=== PATIENT | male | born 1950 | race Caucasian/White ===

== ENCOUNTER 2017-06-10 13:02 | Emergency (ER) | payer OTHER ==
--- NOTE | 2017-06-10 13:51 | EKG ---
Test Date: 2017-06-10 Test Time: 13:03:58 Housing Liaison: RAJESH MEASUREMENT RESULTS: Intervals: Rate: 79 AL: 164 QRSD: 92 QT: 390 QTc: 447 [place]: P: 57 AL: 164 QRS: 82 T: 40 INTERPRETIVE STATEMENTS: Normal sinus rhythm Normal ECG Compared to ECG 05/07/2017 13:33:05 No significant changes Electronically Signed On 06-10-17 13:50:36 CDT by Jadon Chamorro
[2017-06-10 13:57] LABS: Absolute Lymphocytes (CBC) 2.9 K/uL (0.7-4.9); Absolute Monocytes 0.6 K/uL (0.1-1.3); Absolute Neutrophil 7.1 K/uL (1.8-8.0); Basophils % 1.4 % (0-1.3); Eosinophils % 1.5 % (0-4.4); Hematocrit 45.7 % (39.6-49.0); Lymphocytes % 26.4 % (15.3-44.8); MCH 33.6 pg (27.0-35.0); MCV 99.8 fL (80-100); Monocytes % 5.7 % (3.3-12.3); RBC Red Blood Cell Count 4.57 M/uL (4.33-5.43)
[2017-06-10 14:12] LABS: Potassium 3.7 mEq/L (3.6-5.0)
[2017-06-10] MEDS ORDERED: FENTANYL CITR 100 MCG/2 ML ONE (15:10)
[2017-06-10] MEDS ORDERED: NA CHLORIDE 0.9% 1,000 ML ONE (15:11)
--- NOTE | 2017-06-10 15:15 | RAD REPORT ---
EXAM DESCRIPTION: CT - Chest Abdomen W Con - 06/10/2017 2:55 pm CLINICAL HISTORY: Chest pain, abdominal pain, elevated D-dimer, history of hypertension and COPD, sm oking history COMPARISON: None. TECHNIQUE: During dynamic enhancement using 100 milliliters nonionic IV contrast, axial 5 millimeter thick images of the chest and abdomen were obtained. Biphasic technique was utilized through the abd omen. Oral contrast was administered. All CT scans are performed using dose optimization technique as appropriate and may include automated exposure control or mA/KV adjustment according to patient size. FINDINGS: The lungs are clear of mass and infiltrate. Mid and upper lung field calcified pleural mai quing similar to prior imaging. No new or enlarging soft tissue mass component. No pneumothorax or pl eural effusion. No chest wall mass or abnormal axillary lymphadenopathy seen. Mediastinal and hilar regions show no mass or lymphadenopathy. Aorta and pulmonary arterial tree enhance normally. No sign ificant cardiac finding. Liver shows a mild fatty infiltration pattern. No focal liver lesion identifiable. The gallbladder, b iliary tree, pancreas and spleen show no acute findings. Symmetric renal function is seen with no hydronephrosis, mass or other significant finding. No adren al abnormalities. Patient has nonspecific perinephric stranding similar to the prior study. No dilated bowel loops or focal ball bowel wall thickening. No free air, free fluid or inflammatory stranding. No mass or bulky lymphadenopathy. A small fat only umbilical hernia present and noted. No acute or destructive bone process seen. Prominent endplate degenerative changes are present. Heman gioma in the L3 body noted. IMPRESSION: CT chest imaging shows no pulmonary embolism, aortic acute finding or other worrisome me diastinal or hilar process. Calcified pleural plaquing stable from prior imaging. No acute pleural or lung parenchymal process. Mild fatty infiltration pattern to the liver with no acute liver finding. Overall no acute finding of the abdomen.
--- NOTE | 2017-06-10 15:20 | RAD REPORT ---
EXAM DESCRIPTION: RAD - Chest Single View - 06/10/2017 2:35 pm CLINICAL HISTORY: Chest pain COMPARISON: May [address] chest TECHNIQUE: AP portable chest image was obtained 1401 hours . FINDINGS: No focal consolidation, mass or failure finding. Lung markings are prominent but not signi ficantly different from comparison. Trachea is midline. Vague nodularity and calcifications in the ld ng griffith correspond to known calcified pleural plaques. Heart and vasculature are normal. No measura ble pleural effusion and no pneumothorax. No gross bony abnormality seen. No acute aortic findings kraft spected. IMPRESSION: No acute cardiopulmonary process. Chronic pleural and parenchymal findings are detailed above. These are similar to prior imaging.
--- NOTE | 2017-06-10 16:16 | ER ---
Nurse's Notes [facility] Name: Mega Farnsworth Age: 66 yrs Sex: Male : 1950 Arrival Date: 06/10/2017 Time: 13:04 Bed 8 Private MD: Diagnosis: Generalized abdominal pain;Chest pain, unspecified Presentation: 06/10 13:00 Presenting complaint: EMS states: pt from home, states he woke up about 1145 and was tw2 having chest pain, right in the middle, and abdominal pain, does not radiate, like 2 separate pains, vs stable, hx: htn, copd, acid reflus, nkda. Transition of care: patient was not received from another setting of care. Onset of symptoms was June 10, 2017. Initial Sepsis Screen: Does the patient meet any 2 criteria? Temp <36.0*C (96.8*F)) or > 38.3*C (100.4*F). No. Patient's initial sepsis screen is negative. Does the patient have a suspected source of infection? No. Patient's initial sepsis screen is negative. Care prior to arrival: IV initiated. 20 GA, in the left antecubital area. 13:00 Method Of Arrival: EMS: [facility] tw2 13:00 Acuity: DOMENICO 3 tw2 Historical: - Allergies: 13:12 NKDA; tw2 - Home Meds: 13:12 citalopram oral [Active]; Protonix 20 mg Oral TbEC 1 tab once daily [Active]; tw2 quetiapine Oral [Active]; tamsulosin Oral [Active]; lisinopril Oral [Active]; Zolpidem Tartrate Oral [Active]; - PMHx: 13:12 Anxiety; Hypertension; Ulcers; COPD; tw2 - Immunization history:: Adult Immunizations up to date. - Social history:: Smoking status: Patient uses tobacco products, smokes one-half pack cigarettes per day. Screenin:10 Abuse screen: Denies threats or abuse. Nutritional screening: No deficits noted. tw2 Tuberculosis screening: No symptoms or risk factors identified. Fall Risk None identified. Assessment: 13:08 General: Appears in no apparent distress. Behavior is calm, cooperative, appropriate tw2 for age. Pain: Complains of pain in chest and abdomen Pain does not radiate. Pain began 2 hours ago. Neuro: Level of Consciousness is awake, alert, obeys commands, Oriented to person, place, time, situation. Cardiovascular: Reports chest pain, Denies shortness of breath, hx of COPD Heart tones S1 S2 Capillary refill < 3 seconds Patient's skin is warm and dry. Respiratory: Airway is patent Respiratory effort is even, unlabored, Respiratory pattern is regular, symmetrical, Breath sounds are clear bilaterally. GI: Abdomen is round non-distended, Bowel sounds present X 4 quads. Reports lower abdominal pain, upper abdominal pain. : No signs and/or symptoms were reported regarding the genitourinary system. EENT: No signs and/or symptoms were reported regarding the EENT system. Derm: Skin is intact, is healthy with good turgor, Skin is dry, Skin temperature is warm. Musculoskeletal: Range of motion: intact in all extremities. 13:52 Reassessment: Patient appears in no apparent distress at this time. Patient and/or tw2 family updated on plan of care and expected duration. Pain level reassessed. Patient is alert, oriented x 3, equal unlabored respirations, skin warm/dry/pink. pt appears to be sleeping, easily arousable for blood draw at this time, pt states "can i get something for pain", provider notified. 15:00 Reassessment: Patient appears in no apparent distress at this time. Patient and/or tw2 family updated on plan of care and expected duration. Pain level reassessed. Patient is alert, oriented x 3, equal unlabored respirations, skin warm/dry/pink. 16:10 Reassessment: Patient appears in no apparent distress at this time. Patient and/or tw2 family updated on plan of care and expected duration. Pain level reassessed. Patient is alert, oriented x 3, equal unlabored respirations, skin warm/dry/pink. Vital Signs: 13:07 BP 120 / 85; Pulse 81; Resp 13; Temp 99.1(O); Pulse Ox 94% on R/A; Weight 81.65 kg (R); tw2 Height 5 ft. 8 in. (172.72 cm); Pain 10/10; 13:52 BP 114 / 78; Pulse 82; Resp 18; Pulse Ox 94% on R/A; tw2 14:00 BP 102 / 60; Pulse 79; Resp 16; Pulse Ox 94% ; jl7 14:45 BP 99 / 58; Pulse 77; Resp 16; Pulse Ox 94% ; jl7 15:15 BP 115 / 77; Pulse 77; Resp 16; Pulse Ox 96% on R/A; jl7 16:09 BP 107 / 79; Pulse 79; Resp 19; Pulse Ox 94% on R/A; tw2 13:07 Body Mass Index 27.37 (81.65 kg, 172.72 cm) tw2 13:07 pt has hx of COPD tw2 ED Course: 13:00 Bed in low position. Call light in reach. Side rails up X2. air sampling and monitoring on. Pulse tw2 ox on. NIBP on. 13:04 Patient arrived in ED. tw2 13:06 Triage completed. tw2 13:07 Arm band placed on. tw2 13:09 No provider procedures requiring assistance completed. Maintain EMS IV. Dressing tw2 intact. Good blood return noted. Site clean \\T\\ dry. Gauge \\T\\ site: 20g LEFT ac. Patient maintains SpO2 saturation greater than 95% on room air. 13:10 EKG done, by sleep lab technician. reviewed by Gustavo Marquez MD. at1 13:13 Svetlana Sierra, STEVO is Primary Nurse. tw2 13:15 Alex Lombardo MD is Attending Physician. gs 14:29 Notified ED physician of a critical lab result(s). D-dimer 1016. dm5 14:31 X-ray completed. Portable x-ray completed in exam room. Patient tolerated procedure kw1 well. 14:32 XRAY Chest (1 view) In Process Unspecified. EDMS 14:[address] via stretcher. vm2 14:55 CT Chest Abdomen W/ Contrast In Process Unspecified. EDMS 15:12 Troponin (emerg Dept Use Only) Sent. tw2 15:12 Lipase Sent. tw2 16:23 IV discontinued, intact, bleeding controlled, No redness/swelling at site. Pressure tw2 dressing applied. Administered Medications: 15:15 Drug: NS 0.9% 1000 ml Route: IV; Rate: 1 bolus; Site: left antecubital; jl7 16:22 Follow up: Response: No adverse reaction; IV Status: Order to discontinue infusion; IV tw2 Intake: 500ml 15:16 Drug: fentaNYL (PF) 50 mcg Route: IVP; Site: left antecubital; jl7 16:16 Follow up: Response: No adverse reaction; Pain is decreased tw2 Intake: 16:22 IV: 500ml; Total: 500ml. tw2 Outcome: 16:15 Discharge ordered by . josep 16:23 Discharged to home ambulatory. tw2 16:23 Condition: stable 16:23 Discharge instructions given to patient, Instructed on discharge instructions, follow up and referral plans. Demonstrated understanding of instructions, follow-up care. 16:27 Patient left the ED. tw2 Signatures: Dispatcher [employer] EDMS Dasha Mayen, RN RN dm5 Suzie neville, home health occupational therapist EKG Tat1 Svetlana Sierra RN RN tw2 Junior Becker RN RN jl7 Meredith Lee 2 Alex Lombardo MD MD gs Wilhelm, Kimberly kw1 Corrections: (The following items were deleted from the chart) 13:53 13:07 BP 120 / 85; Pulse 81bpm; Resp 13bpm; Pulse Ox 94% RA; Temp 99.1F Oral; 81.65 kg tw2 Reported; Height 5 ft. 8 in.; BMI: 27.3; Pain 10/10; tw2
--- NOTE | 2017-06-10 16:16 | EDPHYS ---
Physician Documentation [facility] Name: Mega Farnsworth Age: 66 yrs Sex: Male : 1950 Arrival Date: 06/10/2017 Time: 13:04 Bed 8 Private MD: ED Physician Alex Lombardo HPI: 06/10 16:35 This 66 yrs old Male presents to ER via EMS with complaints of Chest Pain > gs 30 y/o, Abdominal Pain. 16:35 The patient or guardian reports chest pain that is located primarily in the epigastric gs area. Onset: acutely. The pain radiates to abdomen. Associated signs and symptoms: Pertinent negatives: diaphoresis, shortness of breath. The chest pain is described as sharp. Duration: The patient or guardian reports a single episode. Modifying factors: The symptoms are alleviated by nothing. the symptoms are aggravated by nothing. Severity of pain: At its worst the pain was moderate in the emergency department the pain is unchanged. The patient has experienced similar episodes in the past, a few times. Historical: - Allergies: 13:12 NKDA; tw2 - Home Meds: 13:12 citalopram oral [Active]; Protonix 20 mg Oral TbEC 1 tab once daily [Active]; tw2 quetiapine Oral [Active]; tamsulosin Oral [Active]; lisinopril Oral [Active]; Zolpidem Tartrate Oral [Active]; - PMHx: 13:12 Anxiety; Hypertension; Ulcers; COPD; tw2 - Immunization history:: Adult Immunizations up to date. - Social history:: Smoking status: Patient uses tobacco products, smokes one-half pack cigarettes per day. ROS: 16:35 All other systems are negative. gs Exam: 16:15 ECG was reviewed by the Attending Physician. gs 16:35 Head/Face: Normocephalic, atraumatic. Eyes: Pupils equal round and reactive to light, gs extra-ocular motions intact. Lids and lashes normal. Conjunctiva and sclera are non-icteric and not injected. Cornea within normal limits. Periorbital areas with no swelling, redness, or edema. ENT: Nares patent. No nasal discharge, no septal abnormalities noted. Tympanic membranes are normal and external auditory canals are clear. Oropharynx with no redness, swelling, or masses, exudates, or evidence of obstruction, uvula midline. Mucous membranes moist. Neck: Trachea midline, no thyromegaly or masses palpated, and no cervical lymphadenopathy. Supple, full range of motion without nuchal rigidity, or vertebral point tenderness. No Meningismus. Chest/axilla: Normal chest wall appearance and motion. Nontender with no deformity. No lesions are appreciated. Cardiovascular: Regular rate and rhythm with a normal S1 and S2. No gallops, murmurs, or rubs. Normal PMI, no JVD. No pulse deficits. Respiratory: Lungs have equal breath sounds bilaterally, clear to auscultation and percussion. No rales, rhonchi or wheezes noted. No increased work of breathing, no retractions or nasal flaring. 16:35 Back: No spinal tenderness. No costovertebral tenderness. Full range of motion. Skin: Warm, dry with normal turgor. Normal color with no rashes, no lesions, and no evidence of cellulitis. MS/ Extremity: Pulses equal, no cyanosis. Neurovascular intact. Full, normal range of motion. Neuro: Awake and alert, GCS 15, oriented to person, place, time, and situation. Cranial nerves II-XII grossly intact. Motor strength 5/5 in all extremities. Sensory grossly intact. Cerebellar exam normal. Normal gait. 16:35 Constitutional: The patient appears alert, awake, uncomfortable. 16:35 Abdomen/GI: Palpation: mild abdominal tenderness, in all quadrants, rebound tenderness, is not appreciated. Vital Signs: 13:07 BP 120 / 85; Pulse 81; Resp 13; Temp 99.1(O); Pulse Ox 94% on R/A; Weight 81.65 kg (R); tw2 Height 5 ft. 8 in. (172.72 cm); Pain 10/10; 13:52 BP 114 / 78; Pulse 82; Resp 18; Pulse Ox 94% on R/A; tw2 14:00 BP 102 / 60; Pulse 79; Resp 16; Pulse Ox 94% ; jl7 14:45 BP 99 / 58; Pulse 77; Resp 16; Pulse Ox 94% ; jl7 15:15 BP 115 / 77; Pulse 77; Resp 16; Pulse Ox 96% on R/A; jl7 16:09 BP 107 / 79; Pulse 79; Resp 19; Pulse Ox 94% on R/A; tw2 13:07 Body Mass Index 27.37 (81.65 kg, 172.72 cm) tw2 13:07 pt has hx of COPD tw2 MDM: 13:27 Patient medically screened. 16:35 Differential diagnosis: coronary artery disease chest wall pain, thoracic aortic gs disection. Data reviewed: vital signs, nurses notes. Response to treatment: the patient's symptoms have resolved after treatment, and as a result, I will discharge patient. 06/10 13:35 Order name: Basic Metabolic Panel; Complete Time: 14:31 06/10 13:35 Order name: CBC with Diff; Complete Time: 14:31 06/10 13:35 Order name: Troponin (emerg Dept Use Only); Complete Time: 14:31 06/10 13:35 Order name: D-Dimer; Complete Time: 14:31 06/10 15:01 Order name: Lipase; Complete Time: 16:13 06/10 15:01 Order name: Troponin (emerg Dept Use Only); Complete Time: 16:13 06/10 13:35 Order name: XRAY Chest (1 view); Complete Time: 15:38 06/10 13:35 Order name: EKG; Complete Time: 13:36 06/10 13:35 Order name: Cardiac monitoring; Complete Time: 13:51 06/10 13:35 Order name: EKG - Nurse/Tech; Complete Time: 13:51 06/10 13:35 Order name: IV Saline Lock; Complete Time: 13:51 06/10 14:24 Order name: CT Chest Abdomen W/ Contrast; Complete Time: 15:38 06/10 13:35 Order name: Labs collected and sent; Complete Time: 13:51 06/10 13:35 Order name: O2 Per Protocol; Complete Time: 13:51 06/10 13:35 Order name: O2 Sat Monitoring; Complete Time: 13:51 gs EC:15 Rate is 79 beats/min. Rhythm is regular. WI interval is normal. QRS interval is normal. gs QT interval is normal. T waves are Normal. No ST changes noted. Clinical impression: Normal ECG. Interpreted by me. Administered Medications: 15:15 Drug: NS 0.9% 1000 ml Route: IV; Rate: 1 bolus; Site: left antecubital; jl7 16:22 Follow up: Response: No adverse reaction; IV Status: Order to discontinue infusion; IV tw2 Intake: 500ml 15:16 Drug: fentaNYL (PF) 50 mcg Route: IVP; Site: left antecubital; jl7 16:16 Follow up: Response: No adverse reaction; Pain is decreased tw2 Disposition: 06/10/17 16:15 Discharged to Home. Impression: Generalized abdominal pain, Chest pain, unspecified. - Condition is Stable. - Discharge Instructions: Nonspecific Chest Pain. - Medication Reconciliation Form, Thank You Letter, Antibiotic Education, Prescription Opioid Use form. - Follow up: Private Physician; When: 2 - 3 days; Reason: Re-evaluation by your physician. Signatures: Dispatcher [employer] EDSvetlana Kelley RN RN tw2 Junior Becker RN RN jl7 Alex Lombardo MD MD
[2017-06-10 16:32] VITALS: TEMP 99.1
[2017-06-10 16:38] VITALS: BP 107/79; O2SAT 94
== END 2017-06-10 16:27 | disposition home or self-care (01) ==
LOC: ER 13:02
DX: R10.84 Generalized abdominal pain (principal); I10 Essential (primary) hypertension; F41.9 Anxiety disorder, unspecified; J44.9 Chronic obstructive pulmonary disease, unspecified; F17.210 Nicotine dependence, cigarettes, uncomplicated
CPT/HCPCS: 36415; 71045; 71260; 74160; 80048; 83690; 84484 ×2; 85025; 85379; 93005; 96361; 96374; 99285; J3010; J7030; Q9967

== ENCOUNTER 2017-08-02 07:19 | Emergency (ER) | payer OTHER ==
[2017-08-02] MEDS ORDERED: FAMOTIDINE 20 MG/2 ML VIAL IV ONE (07:38)
[2017-08-02] MEDS ORDERED: ONDANSETRON 4 MG/2 ML VIAL ONE ×2 (07:38→08:22)
[2017-08-02] MEDS ORDERED: MORPHINE 4 MG/ML SYR ONE ×2 (07:38→09:44)
[2017-08-02] MEDS ORDERED: NA CHLORIDE 0.9% 500 ML ONE (07:38)
[2017-08-02 07:52] LABS: Absolute Lymphocytes (CBC) 1.6 K/uL (0.7-4.9); Absolute Monocytes 2.1 K/uL (0.1-1.3); Absolute Neutrophil 15.3 K/uL (1.8-8.0); Basophils % 0.4 % (0-1.3); Eosinophils % 0.1 % (0-4.4); Hematocrit 50.4 % (39.6-49.0); Lymphocytes % 8.4 % (15.3-44.8); MCH 33.1 pg (27.0-35.0); MCV 96.9 fL (80-100); MPV 8.2 fL (7.6-11.3); Monocytes % 10.8 % (3.3-12.3)
[2017-08-02 08:06] LABS: Potassium 3.8 mEq/L (3.6-5.0)
[2017-08-02 08:12] LABS: Albumin 4.3 g/dL (3.2-5.5); Bilirubin Direct 0.2 mg/dL (0-0.2); Bilirubin Total 1.2 mg/dL (0.3-1.2); Protein, Total 6.9 g/dL (6.0-8.3)
[2017-08-02] MEDS ORDERED: METRONIDAZOLE 500mg IVPB 500 MG/100 ML BAG IV ONE (08:16)
[2017-08-02] MEDS ORDERED: Levofloxacin500mg IV 500 MG/100 ML BAG IV ONE (08:16)
--- NOTE | 2017-08-02 08:42 | RAD REPORT ---
EXAM DESCRIPTION: CT - Abdomen Pelvis W Contrast - 08/02/2017 8:29 am CLINICAL HISTORY: Abdominal pain/left upper quadrant pain COMPARISON: 2015 TECHNIQUE: Computed axial tomography of the abdomen pelvis was obtained. 100 cc Isovue-300 was admin istered intravenously. Oral contrast was not requested which limits evaluation of bowel. All CT scans are performed using dose optimization technique as appropriate and may include automated exposure control or mA/KV adjustment according to patient size. FINDINGS: Mild fatty infiltration of liver is present. Spleen, pancreas, adrenal and kidneys appear unremarkable. There is no evidence of diverticulitis. The appendix is normal. The wall of the rectum is moderately thickened. Bilateral inguinal hernias contain fat. IMPRESSION: Moderate thickening of the wall of the rectum may indicate proctitis
--- NOTE | 2017-08-02 09:02 | EDPHYS ---
Physician Documentation [facility] Name: Mega Farnsworth Age: 66 yrs Sex: Male : 1950 Arrival Date: 08/02/2017 Time: 07:20 Bed 8 Private MD: ED Physician Sarthak Villanueva HPI: 08/02 07:35 This 66 yrs old Male presents to ER via EMS with complaints of Abdominal Pain.kdr 07:35 The patient presents with abdominal pain in the left lower quadrant. Onset: The kdr symptoms/episode began/occurred suddenly, at 06:00. The symptoms do not radiate. Associated signs and symptoms: Pertinent positives: nausea. The symptoms are described as achy, constant, crampy, vague. Modifying factors: The symptoms are alleviated by nothing, the symptoms are aggravated by nothing. Severity of pain: At its worst the pain was mild moderate just prior to arrival, in the emergency department the pain is unchanged. The patient has experienced similar episodes in the past, a few times. The patient has not recently seen a physician. Historical: - Allergies: 07:24 NKDA; sg - Home Meds: 07:24 citalopram oral [Active]; lisinopril Oral [Active]; Protonix 20 mg Oral TbEC 1 tab once sg daily [Active]; quetiapine Oral [Active]; tamsulosin Oral [Active]; Zolpidem Tartrate Oral [Active]; 07:29 Protonix Oral [Active]; sg - PMHx: 07:24 Anxiety; COPD; Hypertension; Ulcers; sg - Immunization history:: Adult Immunizations up to date. - Social history:: Smoking status: Patient/guardian denies using tobacco. - Ebola Screening: : Patient negative for fever greater than or equal to 101.5 degrees Fahrenheit, and additional compatible Ebola Virus Disease symptoms Patient denies exposure to infectious person Patient denies travel to an Ebola-affected area in the 21 days before illness onset No symptoms or risks identified at this time. ROS: 07:35 Constitutional: Negative for fever, chills, and weight loss, Eyes: Negative for injury, kdr pain, redness, and discharge, Neck: Negative for injury, pain, and swelling, Cardiovascular: Negative for chest pain, palpitations, and edema, Respiratory: Negative for shortness of breath, cough, wheezing, and pleuritic chest pain, Back: Negative for injury and pain, : Negative for injury, bleeding, discharge, and swelling, MS/Extremity: Negative for injury and deformity, Skin: Negative for injury, rash, and discoloration, Neuro: Negative for headache, weakness, numbness, tingling, and seizure activity. Psych: Negative for depression, anxiety, suicide ideation, homicidal ideation, and hallucinations, Allergy/Immunology: Negative for hives, rash, and allergies, Endocrine: Negative for neck swelling, polydipsia, polyuria, polyphagia, and marked weight changes, Hematologic/Lymphatic: Negative for swollen nodes, abnormal bleeding, and unusual bruising. 07:35 Abdomen/GI: Positive for abdominal pain, nausea, of the left lower quadrant. Exam: 07:35 Constitutional: This is a well developed, well nourished patient who is awake, alert, kdr and in no acute distress. Head/Face: Normocephalic, atraumatic. Eyes: Pupils equal round and reactive to light, extra-ocular motions intact. Lids and lashes normal. Conjunctiva and sclera are non-icteric and not injected. Cornea within normal limits. Periorbital areas with no swelling, redness, or edema. Neck: Trachea midline, no thyromegaly or masses palpated, and no cervical lymphadenopathy. Supple, full range of motion without nuchal rigidity, or vertebral point tenderness. No Meningismus. Chest/axilla: Normal chest wall appearance and motion. Nontender with no deformity. No lesions are appreciated. Cardiovascular: Regular rate and rhythm with a normal S1 and S2. No gallops, murmurs, or rubs. Normal PMI, no JVD. No pulse deficits. Respiratory: Lungs have equal breath sounds bilaterally, clear to auscultation and percussion. No rales, rhonchi or wheezes noted. No increased work of breathing, no retractions or nasal flaring. Back: No spinal tenderness. No costovertebral tenderness. Full range of motion. Skin: Warm, dry with normal turgor. Normal color with no rashes, no lesions, and no evidence of cellulitis. MS/ Extremity: Pulses equal, no cyanosis. Neurovascular intact. Full, normal range of motion. Neuro: Awake and alert, GCS 15, oriented to person, place, time, and situation. Cranial nerves II-XII grossly intact. Motor strength 5/5 in all extremities. Sensory grossly intact. Cerebellar exam normal. Normal gait. Psych: Awake, alert, with orientation to person, place and time. Behavior, mood, and affect are within normal limits. 07:35 Abdomen/GI: Inspection: abdomen appears normal, obese Bowel sounds: active, all quadrants, Palpation: soft, mild abdominal tenderness, in the left upper quadrant and left lower quadrant. Vital Signs: 07:25 BP 140 / 83; Pulse 89; Resp 17 S; Temp 98.3(TE); Pulse Ox 99% on R/A; Pain 10/10; sg 08:27 BP 142 / 88; Pulse 85; Resp 18; Pulse Ox 99% ; sv MDM: 07:35 Data reviewed: vital signs, nurses notes, lab test result(s), radiologic studies. kdr Counseling: I had a detailed discussion with the patient and/or guardian regarding: the historical points, exam findings, and any diagnostic results supporting the discharge/admit diagnosis, the presence of at least one elevated blood pressure reading (>120/80) during this emergency department visit, lab results. 09:01 Patient medically screened. kdr 08/02 07:34 Order name: Basic Metabolic Panel; Complete Time: 08:50 kdr 08/02 07:34 Order name: CBC with Diff; Complete Time: 08:08 kdr 08/02 07:34 Order name: Hepatic Function; Complete Time: 08:50 kdr 08/02 07:34 Order name: Lipase; Complete Time: 08:50 kdr 08/02 07:34 Order name: Urine Microscopic Only kdr 08/02 07:34 Order name: CT Abd/Pelvis - W/Contrast; Complete Time: 08:50 kdr 08/02 07:35 Order name: UDS kdr 08/02 07:35 Order name: ETOH Level; Complete Time: 08:09 kdr 08/02 08:50 Order name: Urine Dipstick--Ancillary (enter results) bd 08/02 08:50 Order name: Urine Dipstick-Ancillary EDPR 08/02 07:34 Order name: IV Saline Lock; Complete Time: 07:34 kdr 08/02 07:34 Order name: Labs collected and sent; Complete Time: 07:34 kdr 08/02 07:34 Order name: Urine Dipstick-Ancillary (obtain specimen); Complete Time: 09:04 kdr 08/02 09:24 Order name: EKG Electrocardiogram EDMS Administered Medications: 07:40 Drug: NS 0.9% 500 ml Route: IV; Rate: 125 ml/hr; Site: right antecubital; sg 07:40 Drug: morphine 4 mg Route: IVP; Site: right antecubital; sg 08:16 Follow up: Response: No adverse reaction; Pain is decreased; 10/28 sg 07:40 Drug: Zofran 4 mg Route: IVP; Site: right antecubital; sg 08:15 Follow up: Response: No adverse reaction; Nausea unchanged sg 07:40 Drug: Pepcid 20 mg Route: IVP; Site: right antecubital; sg 08:15 Follow up: Response: No adverse reaction sg 08:22 Drug: Zofran 4 mg Route: IVP; Site: right antecubital; sg 09:02 Follow up: Response: No adverse reaction sg 08:36 Drug: LevaQUIN 500 mg Volume: 100 ml; Route: IVPB; Infused Over: 60 mins; Site: right sg antecubital; 08:36 Drug: Flagyl 500 mg Volume: 100 ml; Route: IVPB; Rate: 200 ml/hr; Infused Over: 30 sg mins; Site: right antecubital; 09:45 Drug: Pateros 10 mg-325 mg 1 tabs Route: PO; sg 09:56 Follow up: Response: No adverse reaction; Medication administered at discharge. sg 09:45 Drug: morphine 2 mg Route: IVP; Site: right antecubital; sg 09:57 Follow up: Response: No adverse reaction; Medication administered at discharge. Disposition: 08/02/17 09:01 Discharged to Home. Impression: Proctitis. - Condition is Stable. - Discharge Instructions: Proctitis. - Prescriptions for Flagyl 500 mg Oral Tablet - take 1 tablet by ORAL route every 8 hours for 7 days; 21 tablet. Tylenol- Codeine #3 300-30 mg Oral Tablet - take 2 tablets by ORAL route every 6 hours As needed; 12 tablet. Cipro 500 mg Oral Tablet - take 1 tablet by ORAL route every 12 hours for 7 days; 14 tablet. Bentyl 20 mg Oral Tablet - take 1 tablet by ORAL route every 6 hours As needed; 12 tablet. Miralax 17 gram/dose Oral - take 1 packet by ORAL route once daily As needed dilute powder in 8 ounces of water or juice; 1 bottle. - Medication Reconciliation Form, Thank You Letter, Antibiotic Education, Prescription Opioid Use form. - Follow up: Private Physician; When: 2 - 3 days; Reason: If symptoms return, Further diagnostic work-up, Recheck today's complaints, Continuance of care, Re-evaluation by your physician. - Problem is new. - Symptoms have improved. Signatures: Dispatcher [employer] EDPR Yamilet Vasquez Steven, RN RN sg Sarthak Villanueva MD MD kdr Mickail, Joel, PA PA jmm Corrections: (The following items were deleted from the chart) 09:51 07:34 Creatinine for Radiology+C.LAB.BRZ ordered. [facility] 10:28 09:01 08/02/2017 09:01 Discharged to Home. Impression: Proctitis. Condition is Stable. bd Forms are Medication Reconciliation Form, Thank You Letter, Antibiotic Education, Prescription Opioid Use. Follow up: Private Physician; When: 2 - 3 days; Reason: If symptoms return, Further diagnostic work-up, Recheck today's complaints, Continuance of care, Re-evaluation by your physician. Problem is new. Symptoms have improved. kdr
--- NOTE | 2017-08-02 09:02 | ER ---
Nurse's Notes [facility] Name: Mega Farnsworth Age: 66 yrs Sex: Male : 1950 Arrival Date: 08/02/2017 Time: 07:20 Bed 8 Private MD: Diagnosis: Proctitis Presentation: 08/02 07:20 Presenting complaint: EMS states: this morning about 0600 started having LUQ pain sg described as sharp and stabbing that caused him to double over, pain now radiates into his chest still described as sharp cramping pain that is a 10/10. pt reports taking 4 baby aspirin prior to EMS arrival, EMS report the pt was visualized walking across apt parking lot to the EMS, visualized to have a steady gait per EMS. Transition of care: patient was not received from another setting of care. Onset of symptoms was August 02, 2017. Risk Assessment: Do you want to hurt yourself or someone else? Patient reports no desire to harm self or others. Initial Sepsis Screen: Does the patient meet any 2 criteria? No. Patient's initial sepsis screen is negative. Does the patient have a suspected source of infection? No. Patient's initial sepsis screen is negative. Care prior to arrival: None. 07:20 Method Of Arrival: EMS: [facility] sg 07:20 Acuity: DOMENICO 3 sg Historical: - Allergies: 07:24 NKDA; sg - Home Meds: 07:24 citalopram oral [Active]; lisinopril Oral [Active]; Protonix 20 mg Oral TbEC 1 tab once sg daily [Active]; quetiapine Oral [Active]; tamsulosin Oral [Active]; Zolpidem Tartrate Oral [Active]; 07:29 Protonix Oral [Active]; sg - PMHx: 07:24 Anxiety; COPD; Hypertension; Ulcers; sg - Immunization history:: Adult Immunizations up to date. - Social history:: Smoking status: Patient/guardian denies using tobacco. - Ebola Screening: : Patient negative for fever greater than or equal to 101.5 degrees Fahrenheit, and additional compatible Ebola Virus Disease symptoms Patient denies exposure to infectious person Patient denies travel to an Ebola-affected area in the 21 days before illness onset No symptoms or risks identified at this time. Screenin:30 Abuse screen: Denies threats or abuse. Denies injuries from another. Nutritional sg screening: No deficits noted. Tuberculosis screening: No symptoms or risk factors identified. Never had TB. Fall Risk None identified. Assessment: 07:30 General: Appears in no apparent distress. comfortable, well groomed, well developed, sg well nourished, Behavior is calm, cooperative, appropriate for age. Pain: Complains of pain in left upper quadrant Pain radiates to chest Quality of pain is described as sharp, stabbing. Neuro: Level of Consciousness is awake, alert, obeys commands, Oriented to person, place, time, situation, Turnstile Collector are equal bilaterally Moves all extremities. Full function Gait is steady, Speech is normal, Facial symmetry appears normal. Cardiovascular: Heart tones S1 S2 present Capillary refill is brisk in bilateral fingers Patient's skin is warm and dry. Chest pain is denied. Respiratory: Airway is patent Respiratory effort is even, unlabored, Respiratory pattern is regular, symmetrical. GI: Abdomen is flat, non-distended, Stools are reported to be normal. Last BM was August 01, 2017. Bowel sounds present X 4 quads. Abd is soft X 4 quads Abdomen is tender to palpation in epigastric area and left upper quadrant Reports upper abdominal pain, nausea, normal bowel habits, tolerance of fluids, tolerance of food. : No signs and/or symptoms were reported regarding the genitourinary system. EENT: No signs and/or symptoms were reported regarding the EENT system. Derm: Skin is pink, warm \T\ dry. Musculoskeletal: No signs and/or symptoms reported regarding the musculoskeletal system. 07:30 Reassessment: smells of smoke and ETOH. sg 07:50 Reassessment: Patient appears in no apparent distress at this time. pt c/o nausea and sg leg cramping, pt re educated on the purpose of Zofran for nausea and to please wait for the medication to work. 08:20 Reassessment: Patient appears in no apparent distress at this time. Patient and/or sg family updated on plan of care and expected duration. Pain level reassessed. Patient is alert, oriented x 3, equal unlabored respirations, skin warm/dry/pink. pt continues to c/o nausea, notified of pt complaints, orders received, pt medicated see EMAR. 09:30 Reassessment: Patient appears in no apparent distress at this time. Patient and/or sg family updated on plan of care and expected duration. Pain level reassessed. Patient is alert, oriented x 3, equal unlabored respirations, skin warm/dry/pink. pt on the call light again, requesting pain medication. notified, instructed pt that is going to update pt on results and plan of care for dc to home. pt stated understanding. 09:55 Reassessment: pt calling family/friend for transport to home at this time. sg Vital Signs: 07:25 BP 140 / 83; Pulse 89; Resp 17 S; Temp 98.3(TE); Pulse Ox 99% on R/A; Pain 10/10; sg 08:27 BP 142 / 88; Pulse 85; Resp 18; Pulse Ox 99% ; sv ED Course: 07:20 Patient arrived in ED. sg 07:21 Sarthak Villanueva MD is Attending Physician. kdr 07:23 Triage completed. sg 07:23 Arm band placed on. sg 07:28 Robert Baldwin, RN is Primary Nurse. sg 07:30 Patient has correct armband on for positive identification. Bed in low position. Call sg light in reach. Side rails up X2. wire mill operator on. Pulse ox on. NIBP on. Warm blanket given. Head of bed elevated. 07:30 Inserted saline lock: 20 gauge in right antecubital area, using aseptic technique. ss Blood collected. 07:30 Initial lab(s) drawn, by ED staff, sent to lab. sg 08:05 Radiology exam delayed due to lab results not completed at this time. (BUN/Creatinine). jj2 08:[address] jj2 08:28 CT completed. Patient tolerated procedure well. Patient moved back from CT. vm2 08:29 CT Abd/Pelvis - W/Contrast In Process Unspecified. EDMS 08:40 Urine collected: clean catch specimen, clear. sg 09:02 Awaiting: IV abx to complete infusing prior to DC to home as ordered. sg 09:10 EKG done, by wind turbine technician. reviewed by Sarthak Villanueva MD. at1 09:58 No provider procedures requiring assistance completed. IV discontinued, intact, sg bleeding controlled, No redness/swelling at site. Pressure dressing applied. Administered Medications: 07:40 Drug: NS 0.9% 500 ml Route: IV; Rate: 125 ml/hr; Site: right antecubital; sg 07:40 Drug: morphine 4 mg Route: IVP; Site: right antecubital; sg 08:16 Follow up: Response: No adverse reaction; Pain is decreased; 10/28 sg 07:40 Drug: Zofran 4 mg Route: IVP; Site: right antecubital; sg 08:15 Follow up: Response: No adverse reaction; Nausea unchanged sg 07:40 Drug: Pepcid 20 mg Route: IVP; Site: right antecubital; sg 08:15 Follow up: Response: No adverse reaction sg 08:22 Drug: Zofran 4 mg Route: IVP; Site: right antecubital; sg 09:02 Follow up: Response: No adverse reaction sg 08:36 Drug: LevaQUIN 500 mg Volume: 100 ml; Route: IVPB; Infused Over: 60 mins; Site: right sg antecubital; 08:36 Drug: Flagyl 500 mg Volume: 100 ml; Route: IVPB; Rate: 200 ml/hr; Infused Over: 30 sg mins; Site: right antecubital; 09:45 Drug: [place] 10 mg-325 mg 1 tabs Route: PO; sg 09:56 Follow up: Response: No adverse reaction; Medication administered at discharge. sg 09:45 Drug: morphine 2 mg Route: IVP; Site: right antecubital; sg 09:57 Follow up: Response: No adverse reaction; Medication administered at discharge. sg Intake: Outcome: 09:01 Discharge ordered by . kdr 09:57 Discharged to home ambulatory, with friend. sg 09:57 Condition: good 09:57 Discharge instructions given to patient, Instructed on discharge instructions, follow up and referral plans. no drinking with medication, no driving heavy equipment, medication usage, safety practices, Demonstrated understanding of instructions, follow-up care, medications, Prescriptions given X 5 10:28 Patient left the ED. bd Signatures: Dispatcher [employer] EDMS Yamilet Vasquez Stephanie, RN RN sv Gay, Steven, RN RN sg Rittger, Kevin, MD MD kdr Jaramillo, Justin jj2 Smirch, Shelby, RN RN Suzie neville, suspender cutter EKG Tat1 [facility]
[2017-08-02 09:14] LABS: Urine Bacteria NONE SEEN /HPF (NONE SEEN); Urine Culture Reflex Order NOT NEEDED; Urine RBC NONE SEEN /HPF (NONE SEEN)
[2017-08-02 09:18] LABS: Barbiturates NEGATIVE (NEGATIVE); Benzodiazepines NEGATIVE (NEGATIVE); Cocaine NEGATIVE (NEGATIVE); METHAMPHETAM NEGATIVE (NEGATIVE); Opiates NEGATIVE (NEGATIVE); Phencyclidine NEGATIVE (NEGATIVE); THC Cannibis NEGATIVE (NEGATIVE)
[2017-08-02 09:19] LABS: Urine Blood NEGATIVE (NEG); Urine Glucose NEGATIVE (NEG); Urine Protein NEGATIVE (NEG)
[2017-08-02] MEDS ORDERED: HYDROCODONE/APAP 10/325 TAB ONE (09:44)
[2017-08-02 10:42] VITALS: TEMP 98.3; O2SAT 99
[2017-08-02 10:43] VITALS: BP 142/88
--- NOTE | 2017-08-02 14:07 | EKG ---
Test Date: 2017-08-02 Test Time: 09:05:31 Conference Planning Manager: RAJESH MEASUREMENT RESULTS: Intervals: Rate: 75 WA: 152 QRSD: 94 QT: 404 QTc: 451 [place]: P: 51 WA: 152 QRS: 71 T: 63 INTERPRETIVE STATEMENTS: Normal sinus rhythm Normal ECG Compared to ECG 06/10/2017 13:03:58 No significant changes Electronically Signed On 08-02-17 14:06:13 CDT by Jadon Chamorro
== END 2017-08-02 10:28 | disposition home or self-care (01) ==
LOC: ER 07:19
DX: K62.89 Other specified diseases of anus and rectum (principal); I10 Essential (primary) hypertension; F41.9 Anxiety disorder, unspecified; J44.9 Chronic obstructive pulmonary disease, unspecified
CPT/HCPCS: 36415; 74177; 80048; 80076; 80307 ×9; 80320; 83690; 85025; 93005; 96361; 96374; 96375; 99285; J2405 ×2; Q9967; 81003; 81015

== ENCOUNTER 2017-09-15 07:26 | Emergency (ER) | payer OTHER ==
[2017-09-15] MEDS ORDERED: ONDANSETRON 4 MG/2 ML VIAL ONE (07:51)
[2017-09-15] MEDS ORDERED: NA CHLORIDE 0.9% 1,000 ML ONE (07:51)
[2017-09-15 08:06] LABS: Absolute Lymphocytes (CBC) 2.1 K/uL (0.7-4.9); Absolute Monocytes 0.9 K/uL (0.1-1.3); Absolute Neutrophil 5.2 K/uL (1.8-8.0); Basophils % 0.9 % (0-1.3); Eosinophils % 1.8 % (0-4.4); Hematocrit 48.4 % (39.6-49.0); Lymphocytes % 24.9 % (15.3-44.8); MCH 33.8 pg (27.0-35.0); MCV 97.9 fL (80-100); MPV 7.6 fL (7.6-11.3); Monocytes % 10.9 % (3.3-12.3); RBC Red Blood Cell Count 4.95 M/uL (4.33-5.43)
[2017-09-15 08:36] LABS: ALT/SGPT 22 U/L (12-78); AST/SGOT 19 U/L (15-37); Albumin 3.4 g/dL (3.4-5.0); Alkaline Phosphatase 55 U/L (45-117); Amylase Level 42 U/L (25-115); BUN Blood Urea Nitrogen 3 mg/dL (7-18); Bicarbonate 24 mmol/L (21-32); Bilirubin Direct < 0.1 mg/dL (0-0.2); Bilirubin Total 0.3 mg/dL (0.2-1.0); Glucose Level 109 mg/dL (74-106); Lipase 52 U/L (73-393); Potassium 3.1 mmol/L (3.5-5.1); Protein, Total 6.4 g/dL (6.4-8.2); Sodium Level 144 mmol/L (136-145)
--- NOTE | 2017-09-15 09:07 | RAD REPORT ---
EXAM DESCRIPTION: CT - Abdomen Pelvis W Contrast - 09/15/2017 8:56 am CLINICAL HISTORY: Left-sided abdominal pain. CT July 2014 COMPARISON: None. TECHNIQUE: Biphasic, helical CT imaging of the abdomen and pelvis was performed following 100 ml non -ionic IV contrast. Oral contrast was given. All CT scans are performed using dose optimization technique as appropriate and may include automated exposure control or mA/KV adjustment according to patient size. FINDINGS: No suspicious findings in the lung bases. The liver, spleen, and pancreas show no suspicious findings. Gallbladder and biliary tree are also wi thout suspicious finding. Symmetric renal function is seen with no hydronephrosis or suspicious renal mass. No pyelonephritis o r acute renal parenchymal process. No urinary bladder abnormality. Prostate calcifications are presen t without acute process suspected. No gastric dilatation or gastric wall thickening. Small hiatal hernia is present. No acute small fanny l process suspected. Large bowel is not dilated. There is mild wall thickening and edema of apparent in the rectum. Mild perirectal stranding is present. A discrete mass is not identified. No abnormal l ymphadenopathy pattern in the rectum pelvic floor region. No free air, free fluid or inflammatory st randing. No mass or bulky lymphadenopathy. A small fat only umbilical hernia is present. Moderate bi lateral inguinal hernias are present without acute component. The urinary bladder is without signific ant finding. No adrenal abnormality. Disc and bony degenerative changes are present. Pathologic bone process not suspected. IMPRESSION: No bowel obstruction, free air or surgically emergent finding. Suspected proctitis. This needs correlation with clinical presentation. Additional nonacute findings detailed in the body of the report.
[2017-09-15] MEDS ORDERED: POTASSIUM CL SA 10 MEQ TAB PO ONE (09:19)
--- NOTE | 2017-09-15 09:19 | ER ---
Nurse's Notes [facility] Name: Mega Farnsworth Age: 66 yrs Sex: Male : 1950 Arrival Date: 09/15/2017 Time: 07:31 Bed 20 Private MD: Diagnosis: Alcohol abuse;ACUTE PROCTITIS;Hypokalemia Presentation: 09/15 07:20 Presenting complaint: Patient states: that he is having left sided abd pain but denies fc any nausea, vomiting or diarrhea. Pt states that he was fine and when he woke up he had a beer. Then soon after that he started to have abd pain. Vital for EMS 145/98, heart rat eof 86, resp rate of 18 and sats of 95%. Transition of care: patient was not received from another setting of care. Onset of symptoms was September 15, 2017 at 06:00. Risk Assessment: Do you want to hurt yourself or someone else? Patient reports no desire to harm self or others. Initial Sepsis Screen: Does the patient meet any 2 criteria? No. Patient's initial sepsis screen is negative. Does the patient have a suspected source of infection? No. Patient's initial sepsis screen is negative. Care prior to arrival: None. 07:20 Method Of Arrival: EMS: [facility] 07:20 Acuity: DOMENICO 3 fc Historical: - Allergies: 07:36 NKDA; fc - Home Meds: 07:36 lisinopril 40 mg oral tab 1 tab once daily [Active]; fc - PMHx: 07:36 Anxiety; COPD; Hypertension; Ulcers; fc - PSHx: 07:36 None; fc - Immunization history:: Last tetanus immunization: unknown. - Social history:: Smoking status: Patient uses tobacco products, smokes one-half pack cigarettes per day, Patient uses alcohol, pt states "occasionally". - Ebola Screening: : Patient negative for fever greater than or equal to 101.5 degrees Fahrenheit, and additional compatible Ebola Virus Disease symptoms Patient denies exposure to infectious person Patient denies travel to an Ebola-affected area in the 21 days before illness onset. - Family history:: not pertinent. - Hospitalizations: : No recent hospitalization is reported. Screenin:20 Abuse screen: Denies threats or abuse. Nutritional screening: No deficits noted. fc Tuberculosis screening: No symptoms or risk factors identified. Fall Risk None identified. Assessment: 07:30 General: Appears in no apparent distress. uncomfortable, Behavior is calm, cooperative, em Smells of alcohol. Pain: Complains of pain in abdomen Pain currently is 10 out of 10 on a pain scale. Pain began 1 hour ago. 07:30 Neuro: Level of Consciousness is awake, alert, obeys commands, Oriented to person, em place, time, situation. Cardiovascular: Capillary refill < 3 seconds Patient's skin is warm and dry. Respiratory: Airway is patent Respiratory effort is even, unlabored, Respiratory pattern is regular, symmetrical. GI: Abdomen is flat, Bowel sounds present X 4 quads. Abd is soft and non tender X 4 quads. Reports epigastric pain, nausea. : No signs and/or symptoms were reported regarding the genitourinary system. EENT: No signs and/or symptoms were reported regarding the EENT system. Derm: Skin is intact, Skin is pink, warm \\T\\ dry. Musculoskeletal: Range of motion: intact in all extremities. 08:34 Reassessment: Patient appears in no apparent distress at this time. Patient and/or em family updated on plan of care and expected duration. Pain level reassessed. pt refused to drink PO contrast, states he will throw up and has never had to drink it, pt informed of benefits from drinking PO contrast vs CT without, pt verbally understands and will not attempt to drink it, NAVARRO Ramirez notified, modified CT to without contrast. 09:47 Reassessment: Patient appears in no apparent distress at this time. Patient and/or em family updated on plan of care and expected duration. Pain level reassessed. Patient is alert, oriented x 3, equal unlabored respirations, skin warm/dry/pink. pt reports not able to provide urine specimen, provider notified. Vital Signs: 07:20 BP 133 / 82; Pulse 76; Resp 20; Temp 98.2(O); Pulse Ox 96% on R/A; Weight 77.11 kg (R); fc Height 5 ft. 8 in. (172.72 cm) (R); Pain 10/10; 08:35 BP 137 / 76; Pulse 74; Resp 18; Pulse Ox 98% on R/A; em 09:47 BP 148 / 79; Pulse 74; Resp 16; Pulse Ox 97% on R/A; em 07:20 Body Mass Index 25.85 (77.11 kg, 172.72 cm) ED Course: 07:20 Arm band placed on Patient placed in an exam room, on a stretcher. fc 07:20 Patient has correct armband on for positive identification. Bed in low position. Call light in reach. Side rails up X2. 07:31 Patient arrived in ED. fc 07:31 [facility] kav 07:31 Sarthak Villanueva MD is Attending Physician. kav 07:34 Triage completed. fc 07:43 Blane Martinez LVN is Primary Nurse. em 08:00 Initial lab(s) drawn, by me, sent to lab. Inserted saline lock: 20 gauge in right em antecubital area, using aseptic technique. Blood collected. 08:54 CT completed. Patient tolerated procedure well. Patient moved back from CT. bq 08:56 CT Abd/Pelvis - W/Contrast: LUQ Pain In Process Unspecified. EDMS 09:16 Eleanor Baez MD is Referral Physician. kav 10:08 No provider procedures requiring assistance completed. em 10:10 IV discontinued, intact, bleeding controlled, No redness/swelling at site. Pressure em dressing applied. Administered Medications: 07:58 Drug: NS 0.9% 1000 ml Route: IV; Rate: 1 bolus; Site: right antecubital; em 09:13 Follow up: IV Status: Completed infusion; IV Intake: 1000ml em 08:00 Drug: Zofran 4 mg Route: IVP; Site: right antecubital; ss 09:13 Follow up: Response: No adverse reaction; Nausea is decreased em 09:20 Drug: Potassium Chloride 40 mEq Route: PO; em 09:55 Follow up: Response: No adverse reaction em 10:00 Drug: Tylenol #3 (300 mg-30 mg) 1 tablet Route: PO; em 10:06 Follow up: Response: Medication administered at discharge. em Intake: 09:13 IV: 1000ml; Total: 1000ml. em Outcome: 09:18 Discharge ordered by . kav 09:46 Discharge ordered by . kav 10:11 Discharged to home ambulatory. em 10:11 Condition: good 10:11 Discharge instructions given to patient, Instructed on discharge instructions, follow up and referral plans. medication usage, Demonstrated understanding of instructions, follow-up care, medications, Prescriptions given X 1. 10:12 Patient left the ED. em Signatures: Dispatcher [employer] EDMicki Braxton, DINKER DINKERJanette Estes Felicia, RN RN Blane Martinez, SENIOR MECHANICAL ESTIMATOR SENIOR MECHANICAL ESTIMATOR em Hoda Simmons RN RN ss Corrections: (The following items were deleted from the chart) 08:34 08:31 General: Appears in no apparent distress. uncomfortable, Behavior is calm, em cooperative, Smells of alcohol, em 08:34 08:31 Pain: Complains of pain in abdomen Pain currently is 10 out of 10 on a pain em scale. Pain began 1 hour ago. em 10:11 09:47 Reassessment: Patient appears in no apparent distress at this time. Patient em and/or family updated on plan of care and expected duration. Pain level reassessed. Patient is alert, oriented x 3, equal unlabored respirations, skin warm/dry/pink. pt reports not able to provide specimen, provider notified em
--- NOTE | 2017-09-15 09:19 | EDPHYS ---
Physician Documentation [facility] Name: Mega Farnsworth Age: 66 yrs Sex: Male : 1950 Arrival Date: 09/15/2017 Time: 07:31 Bed 20 Private MD: ED Physician Sarthak Villanueva HPI: 09/15 07:32 This 66 yrs old Male presents to ER via Unassigned with complaints of kav Abdominal Pain. 07:37 The patient presents with abdominal pain in the left upper quadrant, x 2 hours. He kav described abdominal pain as a cramping, intermittent pain. ETOH noted on breath. Patient reports consuming about 2 mixed drinks each night and smokes 1/2 ppd cigaretes. Onset: The symptoms/episode began/occurred acutely. Associated signs and symptoms: Pertinent positives: nausea, Pertinent negatives: nausea, vomiting, and diarrhea. The symptoms are described as crampy. Severity of pain: At its worst the pain was moderate just prior to arrival. The patient has not experienced similar symptoms in the past. The patient has not recently seen a physician. Historical: - Allergies: 07:36 NKDA; fc - Home Meds: 07:36 lisinopril 40 mg oral tab 1 tab once daily [Active]; fc - PMHx: 07:36 Anxiety; COPD; Hypertension; Ulcers; fc - PSHx: 07:36 None; fc - Immunization history:: Last tetanus immunization: unknown. - Social history:: Smoking status: Patient uses tobacco products, smokes one-half pack cigarettes per day, Patient uses alcohol, pt states "occasionally". - Ebola Screening: : Patient negative for fever greater than or equal to 101.5 degrees Fahrenheit, and additional compatible Ebola Virus Disease symptoms Patient denies exposure to infectious person Patient denies travel to an Ebola-affected area in the 21 days before illness onset. - Family history:: not pertinent. - Hospitalizations: : No recent hospitalization is reported. ROS: 07:41 Constitutional: Negative for fever, chills, and weight loss, Eyes: Negative for injury, kav pain, redness, and discharge, ENT: Negative for injury, pain, and discharge, Neck: Negative for injury, pain, and swelling, Cardiovascular: Negative for chest pain, palpitations, and edema, Respiratory: Negative for shortness of breath, cough, wheezing, and pleuritic chest pain, Back: Negative for injury and pain, : Negative for injury, bleeding, discharge, and swelling, MS/Extremity: Negative for injury and deformity, Skin: Negative for injury, rash, and discoloration, Neuro: Negative for headache, weakness, numbness, tingling, and seizure, Psych: Negative for depression, anxiety, suicide ideation, homicidal ideation, and hallucinations, Allergy/Immunology: Negative for hives, rash, and allergies, Endocrine: Negative for neck swelling, polydipsia, polyuria, polyphagia, and marked weight changes, Hematologic/Lymphatic: Negative for swollen nodes, abnormal bleeding, and unusual bruising. 07:41 Abdomen/GI: Positive for abdominal pain, abdominal cramps, Negative for nausea, vomiting, and diarrhea, abdominal distension. Exam: 07:41 Constitutional: This is a well developed, well nourished patient who is awake, alert, kav and in no acute distress. Head/Face: Normocephalic, atraumatic. Eyes: Pupils equal round and reactive to light, extra-ocular motions intact. Lids and lashes normal. Conjunctiva and sclera are non-icteric and not injected. Cornea within normal limits. Periorbital areas with no swelling, redness, or edema. ENT: Nares patent. No nasal discharge, no septal abnormalities noted. Tympanic membranes are normal and external auditory canals are clear. Oropharynx with no redness, swelling, or masses, exudates, or evidence of obstruction, uvula midline. Mucous membranes moist. Neck: Trachea midline, no thyromegaly or masses palpated, and no cervical lymphadenopathy. Supple, full range of motion without nuchal rigidity, or vertebral point tenderness. No Meningismus. Chest/axilla: Normal chest wall appearance and motion. Nontender with no deformity. No lesions are appreciated. Cardiovascular: Regular rate and rhythm with a normal S1 and S2. No gallops, murmurs, or rubs. Normal PMI, no JVD. No pulse deficits. Respiratory: Lungs have equal breath sounds bilaterally, clear to auscultation and percussion. No rales, rhonchi or wheezes noted. No increased work of breathing, no retractions or nasal flaring. Back: No spinal tenderness. No costovertebral tenderness. Full range of motion. Skin: Warm, dry with normal turgor. Normal color with no rashes, no lesions, and no evidence of cellulitis. MS/ Extremity: Pulses equal, no cyanosis. Neurovascular intact. Full, normal range of motion. Neuro: Awake and alert, GCS 15, oriented to person, place, time, and situation. Cranial nerves II-XII grossly intact. Motor strength 5/5 in all extremities. Sensory grossly intact. Cerebellar exam normal. Normal gait. Psych: Awake, alert, with orientation to person, place and time. Behavior, mood, and affect are within normal limits. 07:41 Abdomen/GI: Inspection: abdomen appears normal, Bowel sounds: normal, Palpation: moderate abdominal tenderness, in the left upper quadrant. Vital Signs: 07:20 BP 133 / 82; Pulse 76; Resp 20; Temp 98.2(O); Pulse Ox 96% on R/A; Weight 77.11 kg (R); fc Height 5 ft. 8 in. (172.72 cm) (R); Pain 10/10; 08:35 BP 137 / 76; Pulse 74; Resp 18; Pulse Ox 98% on R/A; em 09:47 BP 148 / 79; Pulse 74; Resp 16; Pulse Ox 97% on R/A; em 07:20 Body Mass Index 25.85 (77.11 kg, 172.72 cm) fc MDM: 07:31 Medical screening is not applicable. kav 07:41 Data reviewed: vital signs, nurses notes. kav 09:15 Data reviewed: lab test result(s), radiologic studies, CT scan. kav 09:22 ED course: AWAITING URINE RESULTS. 09/15 07:32 Order name: Amylase, Serum; Complete Time: 08:57 09/15 07:32 Order name: Basic Metabolic Panel; Complete Time: 08:57 09/15 07:32 Order name: CBC with Diff; Complete Time: 08:20 09/15 07:32 Order name: Creatinine for Radiology; Complete Time: 08:20 09/15 07:32 Order name: Hepatic Function; Complete Time: 08:57 09/15 07:32 Order name: Lipase; Complete Time: 08:57 09/15 07:32 Order name: IV Saline Lock; Complete Time: 08:01 09/15 07:37 Order name: ETOH Level; Complete Time: 08:28 29 07:37 Order name: CT Abd/Pelvis - W/Contrast: LUQ Pain; Complete Time: 09:11 kav 09/15 07:32 Order name: Labs collected and sent; Complete Time: 08:01 kav 09/15 09:51 Order name: [facility] [place], [place]. Order: dc urine micro please; Complete Time: 09:56 kav Administered Medications: 07:58 Drug: NS 0.9% 1000 ml Route: IV; Rate: 1 bolus; Site: right antecubital; em 09:13 Follow up: IV Status: Completed infusion; IV Intake: 1000ml em 08:00 Drug: Zofran 4 mg Route: IVP; Site: right antecubital; ss 09:13 Follow up: Response: No adverse reaction; Nausea is decreased em 09:20 Drug: Potassium Chloride 40 mEq Route: PO; em 09:55 Follow up: Response: No adverse reaction em 10:00 Drug: Tylenol #3 (300 mg-30 mg) 1 tablet Route: PO; em 10:06 Follow up: Response: Medication administered at discharge. em Disposition: 13:41 Co-signature as Attending Physician, Sarthak Villanueva MD I agree with the assessment and kdr plan of care. Disposition: 09/15/17 09:46 Discharged to Home. Impression: Alcohol abuse, ACUTE PROCTITIS, Hypokalemia. - Condition is Stable. - Discharge Instructions: Alcohol Intoxication, Alcohol Use Disorder, Potassium Content of Foods, Alcohol Abuse and Nutrition, Alcohol Withdrawal, [id number], Hypokalemia, Proctitis. - Prescriptions for Doxycycline Hyclate 100 mg Oral Tablet - take 1 tablet by ORAL route every 12 hours; 20 tablet. - Medication Reconciliation Form, Thank You Letter, Antibiotic Education, Prescription Opioid Use form. - Follow up: Private Physician; When: 2 - 3 days; Reason: Recheck today's complaints, Continuance of care, Re-evaluation by your physician. - Problem is new. - Symptoms have improved. - Notes: F/U WITH GASTROENTEROLOGY IN 3-5 DAYS FOR POST-ED EVALUATION AND TREATMENT Signatures: Dispatcher [employer] EDMS Sarthak Villanueva MD MD kdr Vern, Katherine, MAINTENANCE SERVICES DISPATCHER MAINTENANCE SERVICES DISPATCHER Kallie Del Rosario, RN RN fc Blane Martinez, AVIONICS SAFETY INSPECTOR AVIONICS SAFETY INSPECTOR em Hoda Simmons RN RN ss Corrections: (The following items were deleted from the chart) 09:19 09:18 09/15/2017 09:18 Discharged to Home. Impression: Ulcerative (chronic) proctitis kav without complications; Alcohol abuse. Condition is Stable. Forms are Medication Reconciliation Form, Thank You Letter, Antibiotic Education, Prescription Opioid Use. Follow up: [facility]; When: 5 - 6 days; Reason: Recheck today's complaints, Continuance of care, Re-evaluation by your physician. Problem is new. Symptoms have improved. kav 09:45 07:32 Urine Dipstick-Ancillary ordered. kav kav 09:58 07:33 UA MICROSCOPIC+U.LAB.BRZ ordered. EDMS EDMS 10:12 09:46 09/15/2017 09:46 Discharged to Home. Impression: Alcohol abuse; ACUTE PROCTITIS; em Hypokalemia. Condition is Stable. Discharge Instructions: Alcohol Intoxication, Alcohol Use Disorder, Alcohol Abuse and Nutrition, Alcohol Withdrawal, [id number], Proctitis. Prescriptions for Doxycycline Hyclate 100 mg Oral Tablet - take 1 tablet by ORAL route every 12 hours; 20 tablet, Doxycycline Hyclate 100 mg Oral Tablet - take 1 tablet by ORAL route every 12 hours; 20 tablet. and Forms are Medication Reconciliation Form, Thank You Letter, Antibiotic Education, Prescription Opioid Use. Follow up: Private Physician; When: 2 - 3 days; Reason: Recheck today's complaints, Continuance of care, Re-evaluation by your physician. Problem is new. Symptoms have improved. kav
[2017-09-15] MEDS ORDERED: CODEINE 30MG/APAP 300MG TAB ONE (10:03)
[2017-09-15 10:18] VITALS: BP 148/79; O2SAT 97
== END 2017-09-15 10:12 | disposition home or self-care (01) ==
LOC: ER 07:26
DX: K51.20 Ulcerative (chronic) proctitis without complications (principal); F10.10 Alcohol abuse, uncomplicated; E87.6 Hypokalemia; I10 Essential (primary) hypertension; F17.210 Nicotine dependence, cigarettes, uncomplicated
CPT/HCPCS: 36415; 74177; 80048; 80076; 80320; 82150; 83690; 85025; J2405; J7030; Q9967; 96361; 96374; 99284

== ENCOUNTER 2018-01-19 15:13 | Observation (INO) | payer OTHER ==
[2018-01-19] MEDS ORDERED: MORPHINE 4 MG/ML SYR ONE ×2 (15:45→17:38)
[2018-01-19] MEDS ORDERED: METOPROLOL TAR 50 MG TAB ONE (15:45)
[2018-01-19] MEDS ORDERED: FAMOTIDINE 20 MG/2 ML VIAL IV ONE (15:46)
[2018-01-19] MEDS ORDERED: ASPIRIN EC 81 MG TAB PO ONE (15:46)
[2018-01-19] MEDS ORDERED: ONDANSETRON 4 MG/2 ML VIAL ONE ×2 (15:46→17:38)
[2018-01-19] MEDS ORDERED: ENOXAPARIN 80 MG/0.8 ML SQ ONE (15:48)
[2018-01-19 15:59] LABS: Absolute Lymphocytes (CBC) 1.1 K/uL (0.7-4.9); Absolute Monocytes 1.2 K/uL (0.1-1.3); Absolute Neutrophil 11.9 K/uL (1.8-8.0); Basophils % 0.8 % (0-1.3); Eosinophils % 0.1 % (0-4.4); Hematocrit 49.1 % (39.6-49.0); Lymphocytes % 7.5 % (15.3-44.8); MCV 100.3 fL (80-100); MPV 8.3 fL (7.6-11.3); Monocytes % 8.1 % (3.3-12.3); RBC Red Blood Cell Count 4.89 M/uL (4.33-5.43)
[2018-01-19 16:09] LABS: Protime INR 1.03
[2018-01-19 16:23] LABS: ALT/SGPT 29 U/L (12-78); Albumin 3.6 g/dL (3.4-5.0); Alkaline Phosphatase 64 U/L (45-117); BUN Blood Urea Nitrogen 11 mg/dL (7-18); Bicarbonate 21 mmol/L (21-32); Bilirubin Direct < 0.1 mg/dL (0-0.2); Bilirubin Total 0.4 mg/dL (0.2-1.0); Glucose Level 113 mg/dL (74-106); Lipase 33 U/L (73-393); NT PRO-BNP 28 pg/mL (<125); Protein, Total 6.8 g/dL (6.4-8.2); Sodium Level 144 mmol/L (136-145); Troponin (Emerg Dept Use Only) < 0.02 ng/mL (0.0-0.045)
[2018-01-19 16:28] LABS: AST/SGOT 23 U/L (15-37); Magnesium 1.9 mg/dL (1.8-2.4); Potassium 4.3 mmol/L (3.5-5.1)
--- NOTE | 2018-01-19 16:29 | RAD REPORT ---
EXAM DESCRIPTION: RAD - Chest Single View - 01/19/2018 4:22 pm CLINICAL HISTORY: Chest pain COMPARISON: June 10 TECHNIQUE: AP portable chest image was obtained [id number] hours . FINDINGS: No peripheral consolidation. Chronic interstitial lung disease is present. Patient has a f ew scattered granulomas. Right suprahilar opacification slightly increased over comparison. Minimal m ass or infiltrate would be possible. No new finding in the left lung field. Heart and vasculature are normal. No measurable pleural effusion and no pneumothorax. No acute bony abnormality seen. No acute aortic findings suspected. IMPRESSION: Ill-defined focal infiltrate or mass density right suprahilar region. Chronic interstitial lung disease similar to comparison. Right chest findings could be monitored on chest film in 4-6 weeks for further evaluated with CT imag ing.
--- NOTE | 2018-01-19 16:31 | ER ---
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 Transition of care: patient was not received from another setting of care. Onset of symptoms was January 19, 2018. Risk Assessment: Do you want to hurt yourself or someone else? Patient reports no desire to harm self or others. Initial Sepsis Screen: Does the patient meet any 2 criteria? No. Patient's initial sepsis screen is negative. Does the patient have a suspected source of infection? No. Patient's initial sepsis screen is negative. Care prior to arrival: Medication(s) given: ASA, 81 mg, x 4, Glucose check: 110. 15:13 Method Of Arrival: EMS: [facility] sg 15:13 Acuity: DOMENICO 3 sg Historical: - Allergies: 15:17 NKDA; sg - Home Meds: 16:39 citalopram oral [Active]; lisinopril 40 mg Oral tab 1 tab once daily [Active]; Protonix mg2 20 mg Oral TbEC 1 tab once daily [Active]; Protonix Oral [Active]; quetiapine Oral [Active]; tamsulosin Oral [Active]; Zolpidem Tartrate Oral [Active]; - PMHx: 15:17 Anxiety; COPD; Hypertension; Ulcers; sg - PSHx: 15:17 None; sg - Immunization history:: Adult Immunizations unknown. - Social history:: Smoking status: Patient uses tobacco products. - Ebola Screening: : Patient negative for fever greater than or equal to 101.5 degrees Fahrenheit, and additional compatible Ebola Virus Disease symptoms Patient denies exposure to infectious person Patient denies travel to an Ebola-affected area in the 21 days before illness onset No symptoms or risks identified at this time. - Family history:: not pertinent. Screenin:36 Abuse screen: Denies threats or abuse. Denies injuries from another. Nutritional mg2 screening: No deficits noted. Tuberculosis screening: No symptoms or risk factors identified. Fall Risk IV access (20 points). Assessment: 16:36 General: Appears in no apparent distress. comfortable, Behavior is calm, cooperative. mg2 Pain: Complains of pain in chest Pain does not radiate. Pain currently is 5 out of 10 on a pain scale. Quality of pain is described as aching, Pain began gradually, 3 hours ago. Is intermittent, Alleviated by medications, rest. Neuro: Level of Consciousness is awake, alert, obeys commands, Oriented to person, place, time, situation. Cardiovascular: Capillary refill < 3 seconds Patient's skin is warm and dry. Respiratory: Airway is patent Respiratory effort is even, unlabored, Respiratory pattern is regular, symmetrical. GI: No signs and/or symptoms were reported involving the gastrointestinal system. : No signs and/or symptoms were reported regarding the genitourinary system. EENT: No signs and/or symptoms were reported regarding the EENT system. Derm: Skin is intact, is healthy with good turgor, Skin is pink, warm \T\ dry. normal. Musculoskeletal: No signs and/or symptoms reported regarding the musculoskeletal system. 17:48 Reassessment: Patient appears in no apparent distress at this time. Patient and/or mg2 family updated on plan of care and expected duration. Pain level reassessed. Patient is alert, oriented x 3, equal unlabored respirations, skin warm/dry/pink. seen by dr hernandez and informed about the need for admission. patient agreed. Vital Signs: 15:14 BP 148 / 90; Pulse 108; Resp 20; Temp 97.1; Pulse Ox 97% on R/A; Pain 10/10; sg 15:34 Weight 74.84 kg; mg2 15:38 Weight 74.84 kg; mg2 16:39 BP 131 / 95; Pulse 103; Resp 18; Pulse Ox 100% on R/A; Pain 5/10; mg2 17:38 BP 130 / 88; Pulse 91; Resp 18; Temp 98.3(O); Pulse Ox 100% on R/A; Pain 5/10; mg2 15:14 FSBG 110 sg ED Course: 15:12 Patient arrived in ED. sg 15:13 Gustavo Marquez MD is Attending Physician. stephanie 15:13 Arm band placed on. sg 15:14 Triage completed. sg 15:19 Gurdeep Butler, STEVO is Primary Nurse. mg2 16:30 Anthony Rajput MD is Hospitalizing Provider. stephanie 16:36 No provider procedures requiring assistance completed. Inserted saline lock: 20 gauge mg2 in right antecubital area, using aseptic technique. Blood collected. 16:37 Patient has correct armband on for positive identification. cage cashier on. Pulse mg2 ox on. NIBP on. Door closed. Warm blanket given. 16:39 Patient maintains SpO2 saturation greater than 95% on room air. mg2 17:00 CT completed. Patient moved to CT via stretcher. Patient moved back from [place]. cw1 17:52 Patient admitted, IV remains in place. mg2 Administered Medications: 15:47 Drug: Lopressor (metoprolol TARTRATE) 50 mg Route: PO; mg2 17:09 Follow up: Response: No adverse reaction; Marked relief of symptoms mg2 15:47 Drug: morphine 4 mg Route: IVP; Site: right antecubital; mg2 17:09 Follow up: Response: No adverse reaction; Marked relief of symptoms mg2 15:47 Drug: Zofran 4 mg Route: IVP; Site: right antecubital; mg2 17:09 Follow up: Response: No adverse reaction; Marked relief of symptoms mg2 15:48 Drug: Pepcid 20 mg Route: IVP; Site: right antecubital; mg2 17:10 Follow up: Response: No adverse reaction; Marked relief of symptoms mg2 15:48 Drug: Aspirin 162 mg Route: PO; mg2 17:10 Follow up: Response: No adverse reaction; Marked relief of symptoms mg2 15:48 Drug: Lovenox 1 mg/kg Route: Sub-Q; Site: right lower abdomen; mg2 17:09 Follow up: Response: No adverse reaction mg2 17:25 Drug: levofloxacin 500 mg Volume: 100 ml; Route: IVPB; Infused Over: 60 mins; Site: mg2 right forearm; 17:54 Follow up: Response: No adverse reaction; IV Status: Infusion continued upon admission mg2 17:25 Drug: Nicoderm CQ 21 mg/24 hr 1 patches {Note: right upper arm.} Route: Transdermal; mg2 Site: affected area; 17:38 Drug: morphine 4 mg Route: IVP; Site: right antecubital; mg2 17:54 Follow up: Response: No adverse reaction; Other mg2 17:38 Drug: Zofran 4 mg Route: IVP; Site: right antecubital; mg2 17:53 Follow up: Response: No adverse reaction; Marked relief of symptoms mg2 Outcome: 16:31 Decision to Hospitalize by Provider. stephanie 17:52 Admitted to Med/surg accompanied by tech, via wheelchair, room 217, with chart, Report mg2 called to STEVO Soto 17:52 Condition: stable 17:52 Instructed on the need for admit, Demonstrated understanding of instructions. 18:21 Patient left the ED. mg2 Signatures: Robert Baldwin RN RN Gustavo Hartmann MD MD cha Woodley, Veronica cw1 Gurdeep Butler RN RN mg2 Corrections: (The following items were deleted from the chart) 15:15 15:13 Care prior to arrival: None. fawn 17:53 17:38 BP 130 / 88; Pulse 101bpm; Resp 18bpm; Pulse Ox 100% RA; Temp 98.3F Oral; Pain mg2 5/10; mg2
--- NOTE | 2018-01-19 16:31 | EDPHYS ---
Physician Documentation [facility] Name: Mega Farnsworth Age: 67 yrs Sex: Male : 1950 Arrival Date: 01/19/2018 Time: 15:12 Bed 30 Private MD: ED Physician Gustavo Marquez HPI: 01/19 15:28 This 67 yrs old Male presents to ER via EMS with complaints of Anxiety, Chest stephanie Pain > 30 y/o, Nausea, Shortness Of Breath. 15:28 The patient or guardian reports chest pain that is located primarily in the substernal stephanie area, anterior chest wall. Onset: 1 day(s) ago. The pain does not radiate. Associated signs and symptoms: Pertinent positives: shortness of breath. The chest pain is described as a heaviness, a pressure, squeezing. Modifying factors: The symptoms are alleviated by nothing. the symptoms are aggravated by nothing. Severity of pain: At its worst the pain was mild moderate in the emergency department the pain has improved mildly. The patient has experienced similar episodes in the past, multiple times. Historical: - Allergies: 15:17 NKDA; sg - Home Meds: 16:39 citalopram oral [Active]; lisinopril 40 mg Oral tab 1 tab once daily [Active]; Protonix mg2 20 mg Oral TbEC 1 tab once daily [Active]; Protonix Oral [Active]; quetiapine Oral [Active]; tamsulosin Oral [Active]; Zolpidem Tartrate Oral [Active]; - PMHx: 15:17 Anxiety; COPD; Hypertension; Ulcers; sg - PSHx: 15:17 None; sg - Immunization history:: Adult Immunizations unknown. - Social history:: Smoking status: Patient uses tobacco products. - Ebola Screening: : Patient negative for fever greater than or equal to 101.5 degrees Fahrenheit, and additional compatible Ebola Virus Disease symptoms Patient denies exposure to infectious person Patient denies travel to an Ebola-affected area in the 21 days before illness onset No symptoms or risks identified at this time. - Family history:: not pertinent. ROS: 15:28 Constitutional: Negative for fever, chills, and weight loss, Eyes: Negative for injury, stephanie pain, redness, and discharge, ENT: Negative for injury, pain, and discharge, Neck: Negative for injury, pain, and swelling, Respiratory: Negative for shortness of breath, cough, wheezing, and pleuritic chest pain, Abdomen/GI: Negative for abdominal pain, nausea, vomiting, diarrhea, and constipation, Back: Negative for injury and pain, : Negative for injury, bleeding, discharge, and swelling, MS/Extremity: Negative for injury and deformity, Skin: Negative for injury, rash, and discoloration, Neuro: Negative for headache, weakness, numbness, tingling, and seizure, Psych: Negative for depression, anxiety, suicide ideation, homicidal ideation, and hallucinations, Allergy/Immunology: Negative for hives, rash, and allergies, Endocrine: Negative for neck swelling, polydipsia, polyuria, polyphagia, and marked weight changes, Hematologic/Lymphatic: Negative for swollen nodes, abnormal bleeding, and unusual bruising. 15:28 Cardiovascular: Positive for chest pain, of the chest. Exam: 15:28 Constitutional: This is a well developed, well nourished patient who is awake, alert, stephanie and in no acute distress. Head/Face: Normocephalic, atraumatic. Eyes: Pupils equal round and reactive to light, extra-ocular motions intact. Lids and lashes normal. Conjunctiva and sclera are non-icteric and not injected. Cornea within normal limits. Periorbital areas with no swelling, redness, or edema. ENT: Nares patent. No nasal discharge, no septal abnormalities noted. Tympanic membranes are normal and external auditory canals are clear. Oropharynx with no redness, swelling, or masses, exudates, or evidence of obstruction, uvula midline. Mucous membranes moist. Neck: Trachea midline, no thyromegaly or masses palpated, and no cervical lymphadenopathy. Supple, full range of motion without nuchal rigidity, or vertebral point tenderness. No Meningismus. Chest/axilla: Normal chest wall appearance and motion. Nontender with no deformity. No lesions are appreciated. Cardiovascular: Regular rate and rhythm with a normal S1 and S2. No gallops, murmurs, or rubs. Normal PMI, no JVD. No pulse deficits. Respiratory: Lungs have equal breath sounds bilaterally, clear to auscultation and percussion. No rales, rhonchi or wheezes noted. No increased work of breathing, no retractions or nasal flaring. Abdomen/GI: Soft, non-tender, with normal bowel sounds. No distension or tympany. No guarding or rebound. No evidence of tenderness throughout. Back: No spinal tenderness. No costovertebral tenderness. Full range of motion. Male : Normal genitalia with no discharge or lesions. Skin: Warm, dry with normal turgor. Normal color with no rashes, no lesions, and no evidence of cellulitis. MS/ Extremity: Pulses equal, no cyanosis. Neurovascular intact. Full, normal range of motion. Neuro: Awake and alert, GCS 15, oriented to person, place, time, and situation. Cranial nerves II-XII grossly intact. Motor strength 5/5 in all extremities. Sensory grossly intact. Cerebellar exam normal. Normal gait. Psych: Awake, alert, with orientation to person, place and time. Behavior, mood, and affect are within normal limits. 15:28 Musculoskeletal/extremity: DVT Exam: No signs of deep vein thrombosis. no pain, no swelling, no tenderness, negative Homans' sign noted on exam, no appreciated bluish discoloration, no erythema, no increased warmth. Vital Signs: 15:14 BP 148 / 90; Pulse 108; Resp 20; Temp 97.1; Pulse Ox 97% on R/A; Pain 10/10; sg 15:34 Weight 74.84 kg; mg2 15:38 Weight 74.84 kg; mg2 16:39 BP 131 / 95; Pulse 103; Resp 18; Pulse Ox 100% on R/A; Pain 5/10; mg2 17:38 BP 130 / 88; Pulse 91; Resp 18; Temp 98.3(O); Pulse Ox 100% on R/A; Pain 5/10; mg2 15:14 [facility]SBG 110 sg MDM: 15:13 Patient medically screened. [facility] 15:30 Data reviewed: vital signs, nurses notes, lab test result(s), EKG, radiologic studies, stephanie plain films. 01/19 15:27 Order name: Basic Metabolic Panel; Complete Time: 16:33 [facility] 01/19 15:27 Order name: CBC with Diff; Complete Time: 16:29 [facility] 01/19 15:27 Order name: LFT's; Complete Time: 16:33 [facility] 01/19 15:27 Order name: Magnesium; Complete Time: 16:33 [facility] 01/19 15:27 Order name: NT PRO-BNP; Complete Time: 16:33 [facility] 01/19 15:27 Order name: PT-INR; Complete Time: 16:29 [facility] 01/19 15:27 Order name: Troponin (emerg Dept Use Only); Complete Time: 16:33 [facility] 01/19 15:27 Order name: XRAY Chest (1 view) [facility] 01/19 15:27 Order name: Lipase; Complete Time: 16:33 [facility] 01/19 16:30 Order name: RAD; Complete Time: 16:33 [facility] 01/19 16:33 Order name: Blood Culture Adult (2) [facility] 01/19 16:35 Order name: CT Chest Wo Con [facility] 01/19 17:17 Order name: CT; Complete Time: 17:31 [facility] 01/19 15:27 Order name: EKG; Complete Time: 15:28 [facility] 01/19 15:27 Order name: Cardiac monitoring; Complete Time: 16:35 [facility] 01/19 15:27 Order name: EKG - Nurse/Tech; Complete Time: 16:35 [facility] 01/19 15:27 Order name: IV Saline Lock; Complete Time: 16:35 [facility] 01/19 15:27 Order name: Labs collected and sent; Complete Time: 16:35 [facility] 01/19 15:36 Order name: CONS Physician Consult [facility] 01/19 17:31 Order name: EKG; Complete Time: 17:32 [facility] 01/19 15:27 Order name: O2 Per Protocol; Complete Time: 16:36 [facility] 01/19 15:27 Order name: O2 Sat Monitoring; Complete Time: 16:36 [facility] 01/19 17:31 Order name: EKG - Nurse/Tech; Complete Time: 17:38 [facility] Administered Medications: 15:47 Drug: Lopressor (metoprolol TARTRATE) 50 mg Route: PO; mg2 17:09 Follow up: Response: No adverse reaction; Marked relief of symptoms mg2 15:47 Drug: morphine 4 mg Route: IVP; Site: right antecubital; mg2 17:09 Follow up: Response: No adverse reaction; Marked relief of symptoms mg2 15:47 Drug: Zofran 4 mg Route: IVP; Site: right antecubital; mg2 17:09 Follow up: Response: No adverse reaction; Marked relief of symptoms mg2 15:48 Drug: Pepcid 20 mg Route: IVP; Site: right antecubital; mg2 17:10 Follow up: Response: No adverse reaction; Marked relief of symptoms mg2 15:48 Drug: Aspirin 162 mg Route: PO; mg2 17:10 Follow up: Response: No adverse reaction; Marked relief of symptoms mg2 15:48 Drug: Lovenox 1 mg/kg Route: Sub-Q; Site: right lower abdomen; mg2 17:09 Follow up: Response: No adverse reaction mg2 17:25 Drug: levofloxacin 500 mg Volume: 100 ml; Route: IVPB; Infused Over: 60 mins; Site: mg2 right forearm; 17:54 Follow up: Response: No adverse reaction; IV Status: Infusion continued upon admission mg2 17:25 Drug: Nicoderm CQ 21 mg/24 hr 1 patches {Note: right upper arm.} Route: Transdermal; mg2 Site: affected area; 17:38 Drug: morphine 4 mg Route: IVP; Site: right antecubital; mg2 17:54 Follow up: Response: No adverse reaction; Other mg2 17:38 Drug: Zofran 4 mg Route: IVP; Site: right antecubital; mg2 17:53 Follow up: Response: No adverse reaction; Marked relief of symptoms mg2 Disposition: 01/19/18 16:31 Hospitalization ordered by Anthony Rajput for Observation. Preliminary diagnosis are Chest pain, unspecified, Tobacco abuse counseling, Tobacco use, Elevated white blood cell count. - Bed requested for Telemetry/MedSurg (observation). - Status is Observation. mg2 - Condition is Stable. - Problem is new. - Symptoms have improved. UTI on Admission? No Signatures: Dispatcher [employer] EDMS Robert Baldwin RN RN sg Anderson, Corey, MD MD cha Fitzgerald, Diane, RN RN df Gardose, Michele, RN RN mg2 Corrections: (The following items were deleted from the chart) 17:02 16:31 Hospitalization Ordered by Anthony Rajput MD for Observation. Preliminary diagnosis df is Chest pain, unspecified; Tobacco abuse counseling; Tobacco use; Elevated white blood cell count. Bed requested for Telemetry/MedSurg (observation). Status is Observation. Condition is Stable. Problem is new. Symptoms have improved. UTI on Admission? No. stephanie 18:21 17:02 01/19/2018 16:31 Hospitalization Ordered by Anthony Rajput MD for Observation. mg2 Preliminary diagnosis is Chest pain, unspecified; Tobacco abuse counseling; Tobacco use; Elevated white blood cell count. Bed requested for Telemetry/MedSurg (observation). Status is Observation. Condition is Stable. Problem is new. Symptoms have improved. UTI on Admission? No. df
[2018-01-19] MEDS ORDERED: ACETAMINOPHEN 500 MG TAB PO PRN (16:32)
[2018-01-19] MEDS: ENOXAPARIN 40 MG/0.4 ML SQ SCH (17:00)
--- NOTE | 2018-01-19 17:16 | RAD REPORT ---
EXAM DESCRIPTION: CT - Thorax Wo Gilbert - 01/19/2018 5:03 pm CLINICAL HISTORY: Chest pain, shortness of breath COMPARISON: Portable chest January 19, 2018, CT chest June 10, 2017 TECHNIQUE: Axial 5 mm thick images of the chest were obtained without IV contrast. All CT scans are performed using dose optimization technique as appropriate and may include automated exposure control or mA/KV adjustment according to patient size. FINDINGS: No suspicious mass or infiltrate in the lung parenchyma. Few granulomas are present. Patie nt has calcified pleural plaquing. No pleural thickening or pleural effusion. No pneumothorax. No abnormal mediastinal or hilar masses or lymphadenopathy seen. No gross aortic or pulmonary artery finding suspected. Assessment is limited in the absence of IV contrast. No cardiomegaly or pericardi al effusion. No chest wall mass or abnormal axillary lymphadenopathy. Minimal hiatal hernia present. IMPRESSION: Negative noncontrast CT chest examination for acute finding. No significant change from comparison. Chronic findings detailed in the body of the report.
[2018-01-19] MEDS ORDERED: NICOTINE 21 MG/PAT TD ONE (17:17)
[2018-01-19] MEDS ORDERED: Levofloxacin500mg IV 500 MG/100 ML BAG IV ONE (17:17)
[2018-01-19] MEDS ORDERED: Levofloxacin 750mg IV 750 MG/150 ML BAG IV SCH (18:00)
[2018-01-19 19:41] LABS: HDL Cholesterol 22 mg/dL (40-60); LDL Cholesterol, Calculated ND (<130); Troponin I < 0.02 ng/mL (0.0-0.045)
[2018-01-19] MEDS: NITROGLYCERIN 0.4 MG/TAB SL PRN ×2 (19:46→20:15)
[2018-01-19 19:56] LABS: LDL, Direct 81 mg/dL (100-129)
[2018-01-19] MEDS ORDERED: ONDANSETRON 4 MG/2 ML VIAL IV PRN (19:57)
[2018-01-19] MEDS: NA CHLORIDE 0.9% 1,000 ML IV SCH (19:58)
[2018-01-19] MEDS: METOPROLOL TAR 25 MG TAB PO SCH (20:07)
[2018-01-19] MEDS: ALBUTEROL 2.5 MG/3 ML NEB SOL NEB SCH (20:20)
[2018-01-19] MEDS: IPRATROPIUM BROM 0.5MG/2.5ML NEB SCH (20:20)
[2018-01-19] MEDS ORDERED: ATORVASTATIN 40 MG TAB PO SCH (21:00)
[2018-01-19 21:43] VITALS: BMI 25.4
[2018-01-19] MEDS: MORPHINE 2 MG/ML SYR IV PRN (22:45)
[2018-01-20] MEDS: IPRATROPIUM BROM 0.5MG/2.5ML NEB SCH ×3 (02:30→14:00)
[2018-01-20] MEDS: ALBUTEROL 2.5 MG/3 ML NEB SOL NEB SCH ×3 (02:30→14:00)
[2018-01-20] MEDS: MORPHINE 2 MG/ML SYR IV PRN ×3 (03:09→14:40)
--- NOTE | 2018-01-20 04:32 | HP ---
Date of Admission: 01/19/2018 Chief Complaint: Chest pain, shortness of breath. Primary Care Physician: Dr. Carr. Consultants: Dr. Chamorro, Cardiology. Code status: Full History Of Present Illness: The patient is a 67-year-old male with a past medical history of hypertension, anxiety, GERD, COPD who has had previous heart catheterization with a normal cardiac catheterization in 2016. The patient was in his usual state of health until the day prior to admission when the patient had sudden onsets of chest pain and shortness of breath. The pain is primarily located in the substernal area. It is not radiating. The patient does report some associated shortness of breath. No nausea or vomiting. The pain is moderate, progressive, not alleviated by anything. Did not take any medications to help improve his symptoms. The patient denies any diaphoresis, fevers, chills, or palpitations. The patient came into the ER for further evaluation. Upon arrival, his vital signs were stable except for his heart rate. He was tachycardic at 108. The patient was given morphine, dose of Levaquin, aspirin and anticoagulated with Lovenox. The patient's workup revealed negative troponin level, his WBC count was 14,000. Creatinine was 1.4 which is acute and above his baseline, which is normal. Chest x-ray showed ill- defined focal infiltrate or mass density in the right suprahilar region. CT chest was done for further elucidation of this infiltrate. Did not show any abnormal mediastinal or hilar masses or lymphadenopathy. No suspicious mass or infiltrate in the lung parenchyma. Does have a few granulomas. The patient was then referred for admission. When seen in the ER, the patient was awake, alert, oriented x3 in some mild distress, nauseated and throwing up after the CT scan. Past Medical History: Hypertension, anxiety, GERD, COPD, history of gastric ulcer surgeries, gastric ulcer repair, vasectomy, heart catheterization in 2016 with normal coronaries. Allergies: NO KNOWN DRUG ALLERGIES. Medications: List reviewed. Social History: The patient is a daily smoker, smokes about half a pack per day. Does use alcohol socially, is not a daily drinker. Lives at home. He is single and has 5 children. 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 Family History: Father had heart disease, of a heart attack at age of 61. Mom at age of 88 from complications of hypertension and stroke. Father also had hypertension and stroke. Review of Systems: An 11-point system reviewed, negative except as per HPI. Physical Examination: Vital Signs: Blood pressure 148/90, pulse 108, respirations 20, temperature 97.1, O2 97% on room air. General: Awake, alert, oriented times 3, in some mild distress due to pain and nausea, elderly male. HEENT: Normocephalic, atraumatic. PERRLA. EOMI. Dry mucous membranes. Oropharynx is clear. Poor dentition. Conjunctivae are anicteric. Neck: Supple. No JVD. Trachea midline. CV: S1, S2. Regular rate and rhythm. Peripheral pulses present. No murmurs. Respiratory: Moving air well bilaterally. No wheezing or stridor. No use of accessory muscles. Gastrointestinal: Abdomen is soft, nontender, nondistended. Positive bowel sounds. No guarding or rigidity. Extremities: No clubbing, cyanosis, or edema. No calf tenderness. Neuro: Cranial nerves 2 through 12 intact grossly. No focal neurological deficit. Speech is normal. Skin: No rashes. Normal skin turgor. Psych: Mood is anxious and affect is congruent with mood. Insight and judgment are good. Laboratory Data: Sodium 144, potassium 4.3, chloride 109, CO2 21, BUN 11, creatinine 1.4, glucose 113, calcium 8.8, magnesium 1.9, AST 23, ALT 29, troponin less than 0.02, BNP 28. Lipase 33. WBC 14.3, H and H 17.1 and 49.1, platelets 247, neutrophils 83%. Imaging Studies: Chest x-ray shows ill-defined focal infiltrate or mass density in the right suprahilar region, chronic interstitial lung disease similar to comparison. Current chest findings can be monitored with chest film or further with CT imaging. CT scan of the chest shows negative noncontrast CT chest examination for acute finding. No significant change from comparison chronic findings. Details in report. No suspicious mass or infiltrate in the lung parenchyma, few granulomas present. The patient has calcified pleural plaquing. No pleural effusion. No pneumothorax. No abnormal mediastinal or hilar masses or lymphadenopathy. No chest wall mass or abnormal axillary lymphadenopathy. Minimal hiatal hernia present. Assessment And Plan: A 67-year-old male with: 1. Chest pain. We will start on chest pain guidelines and obtain serial cardiac enzymes. Cardiology has been consulted. We will obtain an echocardiogram. The patient had a cardiac cath in 2016 with normal coronaries. 2. Shortness of breath may be related to chest pain versus possible pulmonary issue, bronchitis. The patient's CT of the chest appears clear, but does show some chronic calcified pleural plaquing. We will continue with supplemental oxygen and current prophylactic antibiotics. The patient does have elevated white count. 3. Generalized anxiety disorder. 4. Acute kidney injury. We will continue with IV fluids and monitor creatinine level, avoid nephrotoxins. 5. Gastroesophageal reflux disease without esophagitis. Continue PPI. 6. Chronic obstructive pulmonary disease, non-oxygen dependent. Continue with nebulized treatments p.r.n. Gastrointestinal and deep vein thrombosis prophylaxis with Lovenox and PPI. Admit the patient to Med-Surg, [facility] as observation. AFTAB Voice ID: [id number] MTDD
[2018-01-20 05:53] LABS: Absolute Lymphocytes (CBC) 1.9 K/uL (0.7-4.9); Absolute Monocytes 1.3 K/uL (0.1-1.3); Absolute Neutrophil 6.8 K/uL (1.8-8.0); Basophils % 0.8 % (0-1.3); Eosinophils % 0.3 % (0-4.4); Hematocrit 43.4 % (39.6-49.0); Lymphocytes % 18.8 % (15.3-44.8); MCH 35.4 pg (27.0-35.0); MCV 99.7 fL (80-100); MPV 8.1 fL (7.6-11.3); Monocytes % 13.3 % (3.3-12.3); RBC Red Blood Cell Count 4.35 M/uL (4.33-5.43)
[2018-01-20 06:04] LABS: Potassium 4.5 mmol/L (3.5-5.1)
[2018-01-20] MEDS: NA CHLORIDE 0.9% 1,000 ML IV SCH (07:10)
--- NOTE | 2018-01-20 07:38 | EKG ---
Test Date: 2018-01-20 Test Time: 02:47:24 Slot Machine Department Floorperson: RELIEF COOK MEASUREMENT RESULTS: Intervals: Rate: 69 DE: 160 QRSD: 90 QT: 420 QTc: 450 [place]: P: 51 DE: 160 QRS: 64 T: 57 INTERPRETIVE STATEMENTS: Normal sinus rhythm Normal ECG Compared to ECG 01/19/2018 17:34:04 No significant changes Electronically Signed On 01-20-18 07:37:[address] SUPERVISOR by Jadon Chamorro
--- NOTE | 2018-01-20 07:40 | EKG ---
Test Date: 2018-01-19 Test Time: 17:34:04 Chief Engineer Research: MEASUREMENT RESULTS: Intervals: Rate: 92 [place]: 166 QRSD: 86 QT: 370 QTc: 457 [place]: P: 38 [place]: 166 QRS: 66 T: 54 INTERPRETIVE STATEMENTS: Normal sinus rhythm Normal ECG Compared to ECG 01/19/2018 15:22:54 No significant changes Electronically Signed On 01-20-18 07:38:43 PRESS CLIPPER by Jadon Chamorro
--- NOTE | 2018-01-20 07:41 | EKG ---
Test Date: 2018-01-19 Test Time: 15:22:54 Language Tutor: MEASUREMENT RESULTS: Intervals: Rate: 91 ID: [id number] QRSD: 82 QT: 364 QTc: 447 [place]: P: 64 ID: [id number] QRS: 73 T: 49 INTERPRETIVE STATEMENTS: Normal sinus rhythm Normal ECG Compared to ECG 01/19/2018 15:22:27 No significant changes Electronically Signed On 01-20-18 07:39:08 DRAWER WAXER by Jadon Chamorro
[2018-01-20] MEDS ORDERED: ASPIRIN EC 81 MG TAB PO SCH (09:00)
[2018-01-20] MEDS ORDERED: LISINOPRIL 10 MG TAB PO SCH (09:00)
[2018-01-20] MEDS ORDERED: PNEUMOCOCCAL VACCINE 0.5 ML IMVAC ONE (10:00)
--- NOTE | 2018-01-20 11:28 | ECHO ---
HEIGHT: 5 ft 8 in WEIGHT: 167 lb 9 oz DATE OF STUDY: 01/20/[address]: Anthony Rajput MD 2-DIMENSIONAL: YES M.MODE: YES DOPPLER: YES COLOR FLOW: YES TDS: NO PORTABLE: NO DEFINITY: NO BUBBLE STUDY: NO DIAGNOSIS: CHEST PAIN CARDIAC HISTORY: CATHERIZATION: YES SURGERY: NO PROSTHETIC VALVE: NO PACEMAKER: NO MEASUREMENTS (cm) DIASTOLIC (NORMALS) SYSTOLIC (NORMALS) IVSd 0.9 (0.6-1.2) LA Diam 3.9 (1.9-4.0) LVEF 61% LVIDd 4.7 (3.5-5.7) LVIDs 3.1 (2.0-3.5) %FS 33% LVPWd 1.0 (0.6-1.2) Ao Diam 2.8 (2.0-3.7) 2 DIMENSIONAL ASSESSMENT: RIGHT ATRIUM: NORMAL LEFT ATRIUM: NORMAL RIGHT VENTRICLE: NORMAL LEFT VENTRICLE: NORMAL TRICUSPID VALVE: NORMAL MITRAL VALVE: NORMAL PULMONIC VALVE: NORMAL AORTIC VALVE: NORMAL PERICARDIAL EFFUSION: NONE AORTIC ROOT: NORMAL LEFT VENTRICULAR WALL MOTION: NORMAL DOPPLER/COLOR FLOW: PHYSIOLOGIC TRICUSPID REGURGITATION. NORMAL RIGHT VENTRICULAR SYSTOLIC PRESSURE. COMMENTS: NORMAL 2D ECHOCARDIOGRAM WITH DOPPLER. TECHNOLOGIST: Mina SOLOMON
--- NOTE | 2018-01-20 13:02 | RAD REPORT ---
EXAM DESCRIPTION: US - Abdomen Exam Limited - 01/20/2018 12:54 pm CLINICAL HISTORY: Abdominal pain. COMPARISON: 2016 FINDINGS: The gallbladder wall is not thickened. A gallstone is not seen. The biliary tree is normal caliber. IMPRESSION: Unremarkable gallbladder ultrasound.
--- NOTE | 2018-01-20 14:46 | CON ---
History Of Present Illness: Mr. Farnsworth is a 67. He started having chest pain yesterday. The pain is on the right side of his chest, not associated with meals or time of day, body position, level of activity or exertion. Two years ago, he had similar pain. We did a cardiac cath at that time and fo und that he had completely normal coronary arteries, normal ejection fraction. Since he has been her e, his cardiac enzymes are normal and his EKGs are normal. Mr. Farnsworth has never had myocardial infa rction or stroke. He is a cigarette smoker. He sees Dr. Carr as an outpatient. He takes lisinopril, aspirin, and Protonix to treat blood pressure and gastroesophageal reflux disease. He has never had abdominal surgeries. He reports no drug allergies. He uses cigarettes, does not seem to have a mai n to stop smoking. Physical Examination: General: He is 5 feet 8 inches, 167 pounds. HEENT: Normal. Lungs: Clear. Heart: Within normal limits. Abdomen: Soft. Extremities: No cyanosis, clubbing, or edema. Distal pulses palpable. Impression: I think the patient has a normal stress test. He could be discharged home. I think he would be much better off if he quit smoking. He knows this. KATHLEEN Voice ID: [id number] Report ID: [id number]
[2018-01-20] MEDS ORDERED: Levofloxacin500mg IV 500 MG/100 ML BAG IV SCH (17:00)
[2018-01-20] MEDS: ENOXAPARIN 40 MG/0.4 ML SQ SCH (17:00)
--- NOTE | 2018-01-20 17:08 | TREADMILL ---
70% H.R.: 106 85% H.R.: 128 90% H.R.: 136 100% H.R.: 151 DX: CHEST PAIN Date of Study: 01/20/2018 Ht: 5 8 Wt: 167 lb 9 oz Consulting Physician: DR. TOMLINSON MEDICATIONS: TYLENOL, LIPITOR, LEVAQUIN, PRINIVIL, ASPIRIN HISTORY: 67 YEAR OLD MALE WITH COMPLAINTS OF CHEST PAIN. TOBACCO USE, ANXIETY, CHRONIC OBSTRUCTIVE PULMONARY DISEASE, HYPERTENSION, ULCERS. SMOKER PACK DAILY. PHYSICIAL EXAMINATION: RESTING B.P.: 149/81 RESTING H.R.: 66 RESTING EKG: NORMAL PROTOCOL: CHILANGO ROUTINE EXERCISE TIME: 2:12 MAXIMUM HEART RATE: 142 94 % OF PREDICTED B.P. AT PEAK STRESS: 156/88 H.R. AT 1 MINUTE POST EXERCISE: 133 IMPRESSION: ROUTINE STRESS, STOPPED DUE TO TARGET HEART RATE AND FATIGUE. NO SUPRAVENTRICULAR TACHYCARDIA, NO VENTRICULAR TACHYCARDIA, NO PREMATURE ATRIAL COMPLEXES, NO PREMATURE VENTRICULAR COMPLEXES. NO REPORT OF CHEST PAIN. NO ST DEPRESSION WITH STRESS. NORMAL STRESS TEST.
[2018-01-20] MEDS: METOPROLOL TAR 25 MG TAB PO SCH (17:11)
[2018-01-20 17:13] VITALS: BP 133/90
[2018-01-20 17:35] VITALS: O2SAT 96
[2018-01-20 18:32] VITALS: TEMP 97
[2018-01-21] MEDS ORDERED: PANTOPRAZOLE 40MG TABLET PO SCH (09:00)
--- NOTE | 2018-01-21 13:47 | DS ---
Date of Discharge: 01/20/2018 Consultants: Dr. Chamorro, Cardiology. Procedures: 01/20/2018; cardiac stress test. Echocardiogram; EF 61%. Normal 2D echo. Discharge Diagnoses: 1. Chest pain, acute coronary syndrome ruled out. 2. Shortness of breath. 3. Generalized anxiety disorder. 4. Acute kidney injury. 5. Gastroesophageal reflux disease without esophagitis. 6. Chronic obstructive pulmonary disease, non-oxygen dependent. 7. Nicotine dependence with cigarette smoking, counseled. Hospital Course: The patient is a 67-year-old male with past medical history of COPD, anxiety disorder, GERD, who had a cardiac catheterization in 2016, which was negative. The patient comes in with chest pain. He was started on chest pain guidelines. Workup revealed negative cardiac enzymes x3. ACS was ruled out. He was counseled regarding his smoking cessation, however, has no plans to quit. His lipid panel showed a triglyceride level of 160. He was again counseled. Daughter was at the bedside. Treatment plan was explained. All questions were answered. He also has a very low HDL level. The patient was scheduled for a stress test by Dr. Chamorro with Cardiology which was negative. The patient did have some neutrophilic leukocytosis, likely acute phase reactant, which normalized. His imaging studies did not show any acute issues, did show chronic interstitial lung disease similar to comparison. He also has some granulomas. Did not have any pleural effusion or pneumothorax. The patient otherwise did well over the course of the hospital stay. His chest pain improved. He was then cleared for discharge from Cardiology standpoint. The patient will be discharged home in a fair condition. Activity: As tolerated. Medications: As per medication reconciliation list. Followup: Follow up with PCP in 2-3 days. Follow up with runner worker, Dr. Chamorro in 2 weeks. Return to ER for worsening condition. Physical Examination: General: Awake, alert, oriented, no acute distress. Elderly male, appears older than stated age. CV: S1 and S2. Peripheral pulses present. No murmurs. Respiratory: Clear to auscultation. No wheezing. No stridor. Gastrointestinal: Abdomen is soft, nontender, nondistended. Positive bowel sounds. Extremities: No clubbing, cyanosis, edema. Neurologic: Nonfocal. SA/MODL Voice ID: [id number] Report ID: [id number] MTDD
== END 2018-01-20 18:15 | disposition home or self-care (01) ==
LOC: ER 15:13 → ERHOLD 15:32 → 2ND 17:52
PROVIDERS: ADMIT Family Medicine; ATTEND Family Medicine
DX: R07.9 Chest pain, unspecified (principal); R06.02 Shortness of breath; F41.9 Anxiety disorder, unspecified; N17.9 Acute kidney failure, unspecified; K21.9 Gastro-esophageal reflux disease without esophagitis; J44.9 Chronic obstructive pulmonary disease, unspecified; F17.210 Nicotine dependence, cigarettes, uncomplicated; I10 Essential (primary) hypertension
CPT/HCPCS: 36415; 71045; 71250; 76705; 80048 ×2; 80061; 80076; 83690; 83721; 83735; 83880; 84484 ×3; 85025 ×2; 85610; 87040 ×2; 87205; 93005 ×3; 93017; 93306; 94640; 94760 ×3; 96365; 96372; 96375; 99285; G0378 ×2; J1650 ×2; J2270 ×4; J2405 ×3; J7030 ×2

== ENCOUNTER 2018-01-22 10:55 | Emergency (ER) | payer OTHER ==
[2018-01-22 11:36] LABS: Absolute Lymphocytes (CBC) 2.1 K/uL (0.7-4.9); Absolute Monocytes 0.7 K/uL (0.1-1.3); Absolute Neutrophil 5.6 K/uL (1.8-8.0); Basophils % 0.9 % (0-1.3); Eosinophils % 2.2 % (0-4.4); Hematocrit 42.4 % (39.6-49.0); Lymphocytes % 24.1 % (15.3-44.8); MCV 99.4 fL (80-100); MPV 8.5 fL (7.6-11.3); Monocytes % 8.6 % (3.3-12.3); RBC Red Blood Cell Count 4.27 M/uL (4.33-5.43)
[2018-01-22 11:56] LABS: Albumin 3.4 g/dL (3.4-5.0); Bilirubin Direct 0.1 mg/dL (0-0.2); Bilirubin Total 0.6 mg/dL (0.2-1.0); Potassium 3.4 mmol/L (3.5-5.1); Protein, Total 6.2 g/dL (6.4-8.2)
--- NOTE | 2018-01-22 12:34 | RAD REPORT ---
EXAM DESCRIPTION: RAD - Chest Single View - 01/22/2018 11:36 am CLINICAL HISTORY: Chest pain COMPARISON: January 19, 2018 TECHNIQUE: AP portable chest image was obtained 1121 hours . FINDINGS: No peripheral mass, consolidation or acute failure finding. Interstitial markings are prom inent but not clearly different. Prior imaging showed questionable focal density right suprahilar reg ion. This is much less pronounced on the current examination. No new or progressive lung parenchymal process. Heart and vasculature are normal. No measurable pleural effusion and no pneumothorax. No acu te bony abnormality seen. No acute aortic findings suspected. IMPRESSION: Chronic interstitial lung disease not substantially different from comparison. Small right suprahilar density seen on the January 19 study is less pronounced on the prior study a nd is favored to be summation artifact.
--- NOTE | 2018-01-22 13:08 | RAD REPORT ---
EXAM DESCRIPTION: CT - Abdomen Pelvis W Contrast - 01/22/2018 12:47 pm CLINICAL HISTORY: Abdominal pain, chest pain COMPARISON: CT study September 15, 2017 TECHNIQUE: Biphasic, helical CT imaging of the abdomen and pelvis was performed following 100 ml non -ionic IV contrast. Oral contrast was given. All CT scans are performed using dose optimization technique as appropriate and may include automated exposure control or mA/KV adjustment according to patient size. FINDINGS: Scarring or atelectasis present in each posterior gutter. No acute lung base finding. No p ericardial thickening or effusion. Patient has a minimal hiatal hernia. No abnormality of the distal most esophagus. The liver, spleen, and pancreas show no suspicious findings. Gallbladder and biliary tree are also wi thout suspicious finding. Symmetric renal function is seen with no hydronephrosis or suspicious renal mass. No pyelonephritis i dentified. Perinephric stranding is present. Partially filled urinary bladder shows no suspicious fin ding. Prostate gland and seminal vesicles within normal range. There are dense prostate calcification s present. No gastric dilatation or wall thickening. No dilated large or small bowel. Mild prominence of the wal ls of the distal rectum. This is similar to the August examination. No asymmetric thickening or mass. N o history to indicate pelvic or distal rectal symptoms. No free air, free fluid or inflammatory stranding. No mass or bulky lymphadenopathy. Patient has analilia ateral fat filled inguinal hernias moderate in size with no acute component. No adrenal abnormality. No suspicious bony findings. Degenerative changes are present. Incidental note made of hemangioma in the L3 body. IMPRESSION: Scarring or atelectasis in each lung base. A small hiatal hernia is present. The distal few cm of the esophagus show no suspicious finding. No obstruction, free air or surgically emergent finding in the abdomen or pelvis. Mild circumferential thickening of the distal rectal hurt without mass or adjacent stranding. No hi story of rectal or pelvic floor symptoms and the CT findings are similar to September 15 imaging.
--- NOTE | 2018-01-22 15:19 | EDPHYS ---
Physician Documentation [facility] Name: Mega Farnsworth Age: 67 yrs Sex: Male : 1950 Arrival Date: 01/22/2018 Time: 11:00 Bed 2 Private MD: ED Physician Jaime Krause HPI: 01/22 12:31 This 67 yrs old Male presents to ER via EMS with complaints of Abdominal rn Problem - - feels as if swallowed unknown object while sleeping. 12:32 The patient presents with abdominal pain in the epigastric area, in the left upper rn quadrant. Onset: The symptoms/episode began/occurred this morning. The symptoms do not radiate. Associated signs and symptoms: Pertinent positives: nausea, Pertinent negatives: anorexia, blood in stools, chest pain, constipation, diarrhea, dysuria, fever. Modifying factors: The symptoms are alleviated by nothing, the symptoms are aggravated by touching the area. Severity of pain: At its worst the pain was mild in the emergency department the pain is unchanged. The patient has not experienced similar symptoms in the past. Reports epigastric abd pain and LUQ abd pain, began this morning, woke up with choking sensation, that progressed to chest pain, then abd pain, + nausea. Was sleeping when all of this happened. . Historical: - Allergies: 11:18 NKDA; sg 11:30 No Known Drug Allergies; hb - Home Meds: 11:30 citalopram oral [Active]; lisinopril 40 mg Oral tab 1 tab once daily [Active]; Protonix hb 20 mg Oral TbEC 1 tab once daily [Active]; Protonix Oral [Active]; quetiapine Oral [Active]; tamsulosin Oral [Active]; Zolpidem Tartrate Oral [Active]; - PMHx: 11:18 Anxiety; COPD; Hypertension; Ulcers; sg 11:30 Hypertension; hb - PSHx: 11:18 None; sg 11:30 None; hb - Immunization history:: Adult Immunizations up to date, Adult Immunizations up to date. - Social history:: Smoking status: Patient uses tobacco products, Smoking status: Patient/guardian denies using tobacco. - Ebola Screening: : Patient negative for fever greater than or equal to 101.5 degrees Fahrenheit, and additional compatible Ebola Virus Disease symptoms Patient denies exposure to infectious person Patient denies travel to an Ebola-affected area in the 21 days before illness onset No symptoms or risks identified at this time No symptoms or risks identified at this time. - Family history:: not pertinent. - Hospitalizations: : No recent hospitalization is reported. ROS: 12:32 Constitutional: Negative for fever, chills, and weight loss, Eyes: Negative for injury, rn pain, redness, and discharge, Neck: Negative for injury, pain, and swelling, Cardiovascular: Negative for palpitations, and edema, Respiratory: Negative for shortness of breath, cough, wheezing, and pleuritic chest pain, Abdomen/GI: + abdominal pain and nausea MS/Extremity: Negative for injury and deformity, Skin: Negative for injury, rash, and discoloration, Neuro: Negative for headache, weakness, numbness, tingling, and seizure. Exam: 12:32 Constitutional: This is a well developed, well nourished patient who is awake, alert, rn and in no acute distress. Wont open his eyes for evaluation. Head/Face: Normocephalic, atraumatic. ENT: MMM Cardiovascular: Regular rate and rhythm with a normal S1 and S2. No gallops, murmurs, or rubs. Normal PMI, no JVD. No pulse deficits. Respiratory: Lungs have equal breath sounds bilaterally, clear to auscultation and percussion. No rales, rhonchi or wheezes noted. No increased work of breathing, no retractions or nasal flaring. Abdomen/GI: soft, mild epigastric and LUQ tenderness, no rebound MS/ Extremity: Pulses equal, no cyanosis. Neurovascular intact. Full, normal range of motion. Equal circumference. Neuro: Awake and alert, GCS 15, oriented to person, place, time, and situation. Cranial nerves II-XII grossly intact. Motor strength 5/5 in all extremities. Sensory grossly intact. Vital Signs: 11:01 Temp 97.5(O); ss 11:04 BP 158 / 92; Pulse 63; Resp 15; Pulse Ox 100% on R/A; Pain 10/10; hb 12:30 BP 150 / 87; Pulse 59; Resp 14; Pulse Ox 97% on R/A; hb MDM: 11:05 Patient medically screened. rn 15:17 Differential diagnosis: gastritis, gastroesophageal reflux disease, non-specific abd rn pain, pancreatitis, Peptic Ulcer Disease. Data reviewed: vital signs, nurses notes, lab test result(s), radiologic studies, CT scan, and as a result, I will discharge patient. Counseling: I had a detailed discussion with the patient and/or guardian regarding: the historical points, exam findings, and any diagnostic results supporting the discharge/admit diagnosis, lab results, radiology results, the need for outpatient follow up, to return to the emergency department if symptoms worsen or persist or if there are any questions or concerns that arise at home. Special discussion: Based on the patient's Hx, exam, and Dx evaluation, there is no indication for emergent surgery or inpatient Tx. It is understood by the patient/guardian that if the Sx's persist or worsen they need to return immediately for re-evaluation. I discussed with the patient/guardian in detail that at this point there is no indication for admission to the hospital. It is understood, however, that if the symptoms persist or worsen the patient needs to return immediately for re-evaluation. Based on the history and exam findings, there is no indication for further emergent testing or inpatient evaluation. I discussed with the patient/guardian the need to see the mopper for further evaluation of the symptoms. 01/22 11:13 Order name: Basic Metabolic Panel rn 01/22 11:13 Order name: CBC with Diff rn 01/22 11:13 Order name: Hepatic Function 01/22 11:13 Order name: Lipase 01/22 11:38 Order name: CBC with Automated Diff; Complete Time: 11:41 EDFL 01/22 11:57 Order name: Basic Metabolic Panel; Complete Time: 12:31 EDFL 01/22 11:13 Order name: XRAY Chest (1 view) rn 01/22 11:13 Order name: CT Abd/Pelvis - W/Contrast rn 01/22 11:57 Order name: Liver (Hepatic) Function; Complete Time: 12:31 EDFL 01/22 11:57 Order name: Lipase; Complete Time: 12:31 EDFL 01/22 12:35 Order name: RAD; Complete Time: 14:17 EDFL 01/22 13:09 Order name: CT; Complete Time: 14:17 EDFL 01/22 15:13 Order name: Urine Dipstick--Ancillary (enter results) 01/22 11:13 Order name: IV Saline Lock; Complete Time: 11:16 rn 1205 11:13 Order name: Labs collected and sent; Complete Time: 11:16 rn 01/22 11:13 Order name: EKG - Nurse/Tech; Complete Time: 11:16 rn 01/22 11:13 Order name: EKG; Complete Time: 11:15 rn 01/22 14:18 Order name: Urine Dipstick-Ancillary (obtain specimen); Complete Time: 15:12 rn Administered Medications: 15:23 Drug: Demerol 25 mg Route: IVP; Site: right wrist; hb Disposition: 01/22/18 15:19 Discharged to Home. Impression: Acute pancreatitis, unspecified. - Condition is Stable. - Discharge Instructions: Acute Pancreatitis. - Prescriptions for Zofran ODT 4 mg Oral tablet,disintegrating - place 1 tablet by TRANSLINGUAL route every 8 hours As needed; 15 tablet. Tylenol- Codeine #3 300-30 mg Oral Tablet - take 1 tablet by ORAL route every 6 hours As needed; 15 tablet. - Medication Reconciliation Form, Thank You Letter, Antibiotic Education, Prescription Opioid Use form. - Follow up: Zenon Oliver MD; When: As needed; Reason: Recheck today's complaints, Re-evaluation by your physician. - Problem is new. - Symptoms have improved. Signatures: Dispatcher [employer] EDRobert Roberts RN RN Jaime Krause MD MD rn Smirch, Shelby, RN RN Julieta Tierney RN RN Corrections: (The following items were deleted from the chart) 15:45 15:19 01/22/2018 15:19 Discharged to Home. Impression: Acute pancreatitis, unspecified. ss Condition is Stable. Forms are Medication Reconciliation Form, Thank You Letter, Antibiotic Education, Prescription Opioid Use. Follow up: Zenon Oliver; When: As needed; Reason: Recheck today's complaints, Re-evaluation by your physician. Problem is new. Symptoms have improved. rn
--- NOTE | 2018-01-22 15:19 | ER ---
Nurse's Notes [facility] Name: Mega Farnsworth Age: 67 yrs Sex: Male : 1950 Arrival Date: 01/22/2018 Time: 11:00 Bed 2 Private MD: Diagnosis: Acute pancreatitis, unspecified Presentation: 01/22 11:01 Presenting complaint: EMS states: Woke feeling like something was stuck in his throat, hb reported feeling like he swallowed a syringe, then c/o left sided chest pressure 10/10. Transition of care: patient was not received from another setting of care. Onset of symptoms was January 22, 2018. Risk Assessment: Do you want to hurt yourself or someone else? Patient reports no desire to harm self or others. Initial Sepsis Screen: Does the patient meet any 2 criteria? No. Patient's initial sepsis screen is negative. Does the patient have a suspected source of infection? No. Patient's initial sepsis screen is negative. Care prior to arrival: None. 11:01 Method Of Arrival: EMS: [facility] 11:01 Acuity: DOMENICO 3 hb Historical: - Allergies: 11:18 NKDA; sg 11:30 No Known Drug Allergies; hb - Home Meds: 11:30 citalopram oral [Active]; lisinopril 40 mg Oral tab 1 tab once daily [Active]; Protonix hb 20 mg Oral TbEC 1 tab once daily [Active]; Protonix Oral [Active]; quetiapine Oral [Active]; tamsulosin Oral [Active]; Zolpidem Tartrate Oral [Active]; - PMHx: 11:18 Anxiety; COPD; Hypertension; Ulcers; sg 11:30 Hypertension; hb - PSHx: 11:18 None; sg 11:30 None; hb - Immunization history:: Adult Immunizations up to date, Adult Immunizations up to date. - Social history:: Smoking status: Patient uses tobacco products, Smoking status: Patient/guardian denies using tobacco. - Ebola Screening: : Patient negative for fever greater than or equal to 101.5 degrees Fahrenheit, and additional compatible Ebola Virus Disease symptoms Patient denies exposure to infectious person Patient denies travel to an Ebola-affected area in the 21 days before illness onset No symptoms or risks identified at this time No symptoms or risks identified at this time. - Family history:: not pertinent. - Hospitalizations: : No recent hospitalization is reported. Screenin:30 Abuse screen: Denies threats or abuse. Denies injuries from another. Nutritional hb screening: No deficits noted. Tuberculosis screening: No symptoms or risk factors identified. Fall Risk None identified. Assessment: 11:30 Reassessment: Patient appears in no apparent distress at this time. pt given PO sg contrast by technology analyst, pt reports he is unable to swallow at this time, notified. 12:30 Reassessment: Patient appears in no apparent distress at this time. No changes from hb previously documented assessment. Patient and/or family updated on plan of care and expected duration. Pain level reassessed. Patient is alert, oriented x 3, equal unlabored respirations, skin warm/dry/pink. 13:30 Reassessment: Patient appears in no apparent distress at this time. No changes from hb previously documented assessment. Patient and/or family updated on plan of care and expected duration. Pain level reassessed. Patient is alert, oriented x 3, equal unlabored respirations, skin warm/dry/pink. 14:30 Reassessment: Patient appears in no apparent distress at this time. No changes from hb previously documented assessment. Patient and/or family updated on plan of care and expected duration. Pain level reassessed. Patient is alert, oriented x 3, equal unlabored respirations, skin warm/dry/pink. 15:10 Reassessment: Pt c/o left sided chest pain 09/27, Dr. Krause notified, no new orders at hb this time. Vital Signs: 11:01 Temp 97.5(O); ss 11:04 BP 158 / 92; Pulse 63; Resp 15; Pulse Ox 100% on R/A; Pain 10/; hb 12:30 BP 150 / 87; Pulse 59; Resp 14; Pulse Ox 97% on R/A; hb ED Course: 11:00 Patient arrived in ED. ss 11:04 Triage completed. hb 11:05 Jaime Krause MD is Attending Physician. rn 11:06 EKG done, by special effects technician. reviewed by Jaime Krause MD. tc 11:12 Missed attempt(s): 20 gauge in right forearm. Bleeding controlled, band aid applied, sg catheter tip intact. Inserted saline lock: 20 gauge in right forearm, using aseptic technique. Blood collected. 11:13 Patient has correct armband on for positive identification. Bed in low position. Call sg light in reach. Side rails up X2. monitoring coordinator on. Pulse ox on. NIBP on. Warm blanket given. Head of bed elevated. 11:16 Robert Baldwin, RN is Primary Nurse. sg 11:33 X-ray completed. Portable x-ray completed in exam room. Patient tolerated procedure jb2 well. 15:18 Zenon Oliver MD is Referral Physician. rn 15:24 Urine Dipstick--Ancillary (enter results) Sent. hb 15:44 No provider procedures requiring assistance completed. Patient did not have IV access ss during this emergency room visit. Administered Medications: 15:23 Drug: Demerol 25 mg Route: IVP; Site: right wrist; hb Outcome: 15:19 Discharge ordered by . rn 15:44 Discharged to home ambulatory. ss 15:44 Condition: good 15:44 Discharge instructions given to patient, Instructed on discharge instructions, follow up and referral plans. medication usage, Demonstrated understanding of instructions, follow-up care, medications, Prescriptions given X 2. 15:45 Patient left the ED. ss Signatures: Robert Baldwin, RN RN sg Axel Horn jb2 Jaime Krause MD MD rn Smirch, Shelby, RN RN Katie Zabala, hat stock laminating machine operator EKG Ttc Julieta Tierney RN RN hb Corrections: (The following items were deleted from the chart) 15:14 14:30 Reassessment: Patient appears in no apparent distress at this time. No changes hb from previously documented assessment. Patient and/or family updated on plan of care and expected duration. Pain level reassessed. Patient is alert, oriented x 3, equal unlabored respirations, skin warm/dry/pink. hb 15:14 14:30 Reassessment: Pt c/o left sided chest pain 09/27, Dr. Krause notified, no new hb orders at this time hb
[2018-01-22] MEDS ORDERED: MEPERIDINE HCL 25 MG/0.5 ML ONE (15:29)
--- NOTE | 2018-01-22 15:34 | EKG ---
Test Date: 2018-01-22 Test Time: 10:59:00 Retail Pharmacist: RAJESH MEASUREMENT RESULTS: Intervals: Rate: 67 ME: 156 QRSD: 94 QT: 410 QTc: 433 [place]: P: 59 ME: 156 QRS: 71 T: 54 INTERPRETIVE STATEMENTS: Normal sinus rhythm Normal ECG Compared to ECG 01/20/2018 02:47:24 No significant changes Electronically Signed On 01-22-18 15:33:23 STARCH COOKER by Jadon Chamorro
[2018-01-22 16:05] VITALS: TEMP 97.5
[2018-01-22 16:07] VITALS: BP 150/87; O2SAT 97
[2018-01-22 16:14] LABS: Urine Blood TRACE (NEG); Urine Glucose NEGATIVE (NEG); Urine Protein NEGATIVE (NEG); Urine Specific Gravity 1.015 (1.005-1.030)
== END 2018-01-22 15:45 | disposition home or self-care (01) ==
LOC: ER 10:55
DX: K85.90 Acute pancreatitis without necrosis or infection, unspecified (principal); I10 Essential (primary) hypertension; J44.9 Chronic obstructive pulmonary disease, unspecified; F41.9 Anxiety disorder, unspecified; Z72.0 Tobacco use
CPT/HCPCS: 36415; 71045; 74177; 80048; 80076; 81003; 83690; 85025; 93005; J2175; Q9967

== ENCOUNTER 2018-05-29 02:49 | Observation (INO) | payer OTHER ==
[2018-05-29] MEDS ORDERED: ONDANSETRON 4 MG/2 ML VIAL ONE (03:34)
[2018-05-29] MEDS ORDERED: NA CHLORIDE 0.9% 1,000 ML ONE (03:34)
[2018-05-29] MEDS ORDERED: MORPHINE 4 MG/ML SYR ONE ×2 (03:34→06:15)
[2018-05-29 03:40] LABS: Protime INR 1.02
[2018-05-29 03:45] LABS: Absolute Lymphocytes (CBC) 1.8 K/uL (0.7-4.9); Absolute Monocytes 1.7 K/uL (0.1-1.3); Absolute Neutrophil 9.8 K/uL (1.8-8.0); Basophils % 0.8 % (0-1.3); Eosinophils % 0.4 % (0-4.4); Hematocrit 44.1 % (39.6-49.0); Lymphocytes % 13.3 % (15.3-44.8); MPV 7.8 fL (7.6-11.3); Monocytes % 12.6 % (3.3-12.3); RBC Red Blood Cell Count 4.39 M/uL (4.33-5.43)
[2018-05-29 04:12] LABS: ALT/SGPT 52 U/L (12-78); AST/SGOT 56 U/L (15-37); Albumin 3.5 g/dL (3.4-5.0); Alkaline Phosphatase 76 U/L (45-117); BUN Blood Urea Nitrogen 11 mg/dL (7-18); Bicarbonate 27 mmol/L (21-32); Bilirubin Direct 0.2 mg/dL (0-0.2); Bilirubin Total 0.7 mg/dL (0.2-1.0); Glucose Level 129 mg/dL (74-106); Lipase 82 U/L (73-393); Magnesium 1.8 mg/dL (1.8-2.4); NT PRO-BNP 200 pg/mL (<125); Potassium 2.9 mmol/L (3.5-5.1); Protein, Total 6.7 g/dL (6.4-8.2); Sodium Level 144 mmol/L (136-145); Troponin (Emerg Dept Use Only) < 0.02 ng/mL (0.0-0.045)
[2018-05-29] MEDS ORDERED: FAMOTIDINE 20 MG/2 ML VIAL IV ONE (04:53)
[2018-05-29] MEDS ORDERED: METRONIDAZOLE 500mg IVPB 500 MG/100 ML BAG IV ONE (04:53)
[2018-05-29] MEDS ORDERED: ASPIRIN 81 MG CHEWABLE TABLET ONE (04:53)
[2018-05-29] MEDS ORDERED: NS KCL 20MEQ 1,000 ML IV ONE (04:53)
[2018-05-29] MEDS ORDERED: KCL 20 MEQ/100 mL IVPB 20 MEQ/100 ML BAG IV ONE (04:53)
[2018-05-29] MEDS ORDERED: CIPROFLOXACIN 400mg IV 400 MG/200 ML BAG IV ONE (04:53)
[2018-05-29 06:53] LABS: Urine Blood 2+ (NEG); Urine Glucose NEGATIVE (NEG); Urine Protein 3+ (NEG); Urine Specific Gravity 1.015 (1.005-1.030)
--- NOTE | 2018-05-29 07:17 | EDPHYS ---
Physician Documentation [facility] Name: Mega Farnwsorth Age: 67 yrs Sex: Male : 1950 Arrival Date: 05/29/2018 Time: 02:50 Bed 7 Private MD: ED Physician Gustavo Marquez HPI: 05/29 03:48 This 67 yrs old Male presents to ER via EMS with complaints of Chest Pain. [facility] 03:48 The patient or guardian reports chest pain that is located primarily in the anterior [facility] chest wall. Onset: just prior to arrival. Historical: - Allergies: 02:59 NKDA; jd3 - Home Meds: 02:59 Protonix 20 mg Oral TbEC 1 tab once daily [Active]; lisinopril 40 mg Oral tab 1 tab jd3 once daily [Active]; - PMHx: 02:59 Anxiety; Hypertension; COPD; Ulcers; jd3 - PSHx: 02:59 None; jd3 - Immunization history:: Adult Immunizations unknown. - Social history:: Smoking status: Patient/guardian denies using tobacco. - Ebola Screening: : Patient negative for fever greater than or equal to 101.5 degrees Fahrenheit, and additional compatible Ebola Virus Disease symptoms. ROS: 03:49 Constitutional: Negative for fever, chills, and weight loss, Eyes: Negative for injury, stephanie pain, redness, and discharge, ENT: Negative for injury, pain, and discharge, Neck: Negative for injury, pain, and swelling, Respiratory: Negative for shortness of breath, cough, wheezing, and pleuritic chest pain, Back: Negative for injury and pain, : Negative for injury, bleeding, discharge, and swelling, MS/Extremity: Negative for injury and deformity, Skin: Negative for injury, rash, and discoloration, Neuro: Negative for headache, weakness, numbness, tingling, and seizure, Psych: Negative for depression, anxiety, suicide ideation, homicidal ideation, and hallucinations, Allergy/Immunology: Negative for hives, rash, and allergies, Endocrine: Negative for neck swelling, polydipsia, polyuria, polyphagia, and marked weight changes, Hematologic/Lymphatic: Negative for swollen nodes, abnormal bleeding, and unusual bruising. 03:49 Cardiovascular: Positive for chest pain. 03:49 Respiratory: Positive for shortness of breath. 03:49 Abdomen/GI: Positive for abdominal pain, of the right lower quadrant and left lower quadrant. Exam: 03:49 Constitutional: This is a well developed, well nourished patient who is awake, alert, stephanie and in no acute distress. Head/Face: Normocephalic, atraumatic. Eyes: Pupils equal round and reactive to light, extra-ocular motions intact. Lids and lashes normal. Conjunctiva and sclera are non-icteric and not injected. Cornea within normal limits. Periorbital areas with no swelling, redness, or edema. ENT: Nares patent. No nasal discharge, no septal abnormalities noted. Tympanic membranes are normal and external auditory canals are clear. Oropharynx with no redness, swelling, or masses, exudates, or evidence of obstruction, uvula midline. Mucous membranes moist. Neck: Trachea midline, no thyromegaly or masses palpated, and no cervical lymphadenopathy. Supple, full range of motion without nuchal rigidity, or vertebral point tenderness. No Meningismus. Chest/axilla: Normal chest wall appearance and motion. Nontender with no deformity. No lesions are appreciated. Cardiovascular: Regular rate and rhythm with a normal S1 and S2. No gallops, murmurs, or rubs. Normal PMI, no JVD. No pulse deficits. Back: No spinal tenderness. No costovertebral tenderness. Full range of motion. Male : Normal genitalia with no discharge or lesions. Skin: Warm, dry with normal turgor. Normal color with no rashes, no lesions, and no evidence of cellulitis. MS/ Extremity: Pulses equal, no cyanosis. Neurovascular intact. Full, normal range of motion. Neuro: Awake and alert, GCS 15, oriented to person, place, time, and situation. Cranial nerves II-XII grossly intact. Motor strength 5/5 in all extremities. Sensory grossly intact. Cerebellar exam normal. Normal gait. Psych: Awake, alert, with orientation to person, place and time. Behavior, mood, and affect are within normal limits. 03:49 Respiratory: the patient does not display signs of respiratory distress, Respirations: normal, Breath sounds: rhonchi, wheezing: expiratory Respiratory rate: 19 03:54 Musculoskeletal/extremity: DVT Exam: No signs of deep vein thrombosis. no pain, no stephanie swelling, no tenderness, negative Homans' sign noted on exam, no appreciated bluish discoloration, no erythema, no increased warmth. Vital Signs: 02:59 BP 146 / 97; Pulse 70; Resp 19 S; Temp 98.0(TE); Pulse Ox 97% on R/A; Weight 74.84 kg jd3 (R); Height 5 ft. 8 in. (172.72 cm) (R); Pain 10/10; 04:15 BP 166 / 89; Pulse 71; Resp 18; Pulse Ox 97% on R/A; Pain 7/10; aa1 05:40 BP 157 / 97; Pulse 68; Resp 18; Pulse Ox 95% on R/A; Pain 5/10; aa1 06:43 BP 173 / 95; Pulse 70; Resp 17 S; Pulse Ox 94% on R/A; jd3 07:15 BP 154 / 96; Pulse 67; Resp 16; Pulse Ox 95% on R/A; sg 02:59 Body Mass Index 25.09 (74.84 kg, 172.72 cm) jd3 MDM: 03:12 Patient medically screened. [facility] 03:52 Data reviewed: vital signs, nurses notes, lab test result(s), EKG, radiologic studies, [facility] CT scan, plain films. 05/29 03:04 Order name: Basic Metabolic Panel [facility] 05/29 03:04 Order name: CBC with Diff; Complete Time: 04:14 [facility] 05/29 03:04 Order name: LFT's [facility] 05/29 03:04 Order name: Magnesium; Complete Time: 04:14 [facility] 05/29 03:04 Order name: NT PRO-BNP [facility] 05/29 03:04 Order name: PT-INR; Complete Time: 04:14 [facility] 05/29 03:04 Order name: Troponin (emerg Dept Use Only); Complete Time: 04:14 [facility] 05/29 03:04 Order name: XRAY Chest (1 view) [facility] 05/29 03:04 Order name: Lipase; Complete Time: 04:14 [facility] 05/29 03:04 Order name: Urine Culture [facility] 05/29 03:05 Order name: Basic Metabolic Panel; Complete Time: 04:14 EDMS 05/29 03:05 Order name: Liver (Hepatic) Function; Complete Time: 04:14 EDDC 05/29 03:05 Order name: NT PRO-BNP; Complete Time: 04:14 EDDC 05/29 06:39 Order name: Urine Dipstick--Ancillary (enter results); Complete Time: 07:09 co 05/29 03:48 Order name: CT Abd/Pelvis - W/Contrast [facility] 05/29 03:04 Order name: EKG; Complete Time: 03:05 [facility] 05/29 03:04 Order name: Cardiac monitoring; Complete Time: 03:37 stephanie 05/29 03:04 Order name: EKG - Nurse/Tech; Complete Time: 03:37 [facility] 05/29 03:04 Order name: IV Saline Lock; Complete Time: 03:14 [facility] 05/29 03:04 Order name: Labs collected and sent; Complete Time: 03:37 [facility] 05/29 03:04 Order name: O2 Per Protocol; Complete Time: 03:14 [facility] 05/29 03:04 Order name: O2 Sat Monitoring; Complete Time: 03:14 [facility] Administered Medications: 03:35 Drug: NS 0.9% 1000 ml Route: IV; Rate: 125 ml/hr; Site: left antecubital; aa1 03:36 Drug: morphine 4 mg Route: IVP; Site: left antecubital; aa1 06:57 Follow up: Response: No adverse reaction jd3 03:36 Drug: Zofran 4 mg Route: IVP; Site: left antecubital; aa1 06:56 Follow up: Response: No adverse reaction jd3 04:40 Drug: Aspirin 162 mg Route: PO; aa1 06:56 Follow up: Response: No adverse reaction jd3 04:40 Drug: Pepcid 20 mg Route: IVP; Site: left antecubital; aa1 06:56 Follow up: Response: No adverse reaction jd3 04:40 Drug: NS 0.9% with KCl 20 mEq/L 1000 ml Route: IV; Rate: 125 ml/hr; Site: left aa1 antecubital; 04:41 Drug: Potassium Chloride 20 mEq Route: IV; Rate: per protocol; Site: left antecubital; aa1 06:57 Follow up: Response: No adverse reaction; IV Status: Completed infusion jd3 04:42 Drug: Flagyl 500 mg Volume: 100 ml; Route: IVPB; Rate: 200 ml/hr; Infused Over: 30 aa1 mins; Site: left antecubital; 06:58 Follow up: Response: No adverse reaction; IV Status: Completed infusion jd3 04:43 Drug: Cipro 400 mg Volume: 200 ml; Route: IVPB; Infused Over: 60 mins; Site: left aa1 antecubital; 06:06 Drug: morphine 4 mg Route: IVP; Site: left antecubital; jd3 06:55 Follow up: Response: No adverse reaction jd3 08:07 Drug: Potassium Effervescent Tablet 25 mEq Route: PO; sg 08:08 Drug: SOLU-Medrol 125 mg Route: IVP; Site: left antecubital; sg 08:08 Drug: Lopressor (metoprolol TARTRATE) 50 mg Route: PO; sg 08:08 Drug: Xopenex 2.5 mg Route: Inhalation; sg 08:08 Drug: AtroVENT Aerosol 0.5 mg Route: Inhalation; sg 08:09 Drug: Lovenox 1 mg/kg Route: Sub-Q; Site: right lower abdomen; sg 08:43 CANCELLED (Other Intervention Used): traMADol 50 mg PO once sg 08:49 Drug: traMADol 50 mg Route: PO; sg Disposition: 05/29/18 07:16 Hospitalization ordered by Titus Wallace for Observation. Preliminary diagnosis are Abdominal tenderness, Diverticular disease of intestine, Chest pain, unspecified, Elevated white blood cell count, Chronic obstructive pulmonary disease with (acute) exacerbation, Hypokalemia. - Bed requested for Telemetry/MedSurg (observation). - Status is Observation. hb - Condition is Fair. - Problem is new. - Symptoms have improved. UTI on Admission? No Signatures: Dispatcher [employer] EDDC Felisha Duron RN RN Robert Baldwin RN RN Marta Leroy RN RN aa1 Gustavo Marquez MD MD cha Baxter, Heather, RN RN Braulio Lovelace RN RN jd3 Corrections: (The following items were deleted from the chart) 07:29 07:16 Hospitalization Ordered by Munira Nino MD for Observation. Preliminary stephanie diagnosis is Abdominal tenderness; Diverticular disease of intestine; Chest pain, unspecified; Elevated white blood cell count; Chronic obstructive pulmonary disease with (acute) exacerbation. Bed requested for Telemetry/MedSurg (observation). Status is Observation. Condition is Fair. Problem is new. Symptoms have improved. UTI on Admission? No. stephanie 07:55 07:29 05/29/2018 07:16 Hospitalization Ordered by Titus Wallace MD for Observation. dw Preliminary diagnosis is Abdominal tenderness; Diverticular disease of intestine; Chest pain, unspecified; Elevated white blood cell count; Chronic obstructive pulmonary disease with (acute) exacerbation. Bed requested for Telemetry/MedSurg (observation). Status is Observation. Condition is Fair. Problem is new. Symptoms have improved. UTI on Admission? No. stephanie 08:02 07:55 05/29/2018 07:16 Hospitalization Ordered by Titus Wallace MD for Observation. stephanie Preliminary diagnosis is Abdominal tenderness; Diverticular disease of intestine; Chest pain, unspecified; Elevated white blood cell count; Chronic obstructive pulmonary disease with (acute) exacerbation. Bed requested for Telemetry/MedSurg (observation). Status is Observation. Condition is Fair. Problem is new. Symptoms have improved. UTI on Admission? No. dw 08:43 08:42 traMADol 50 mg PO once ordered. sg sg 09:17 08:02 05/29/2018 07:16 Hospitalization Ordered by Titus Wallace MD for Observation. hb Preliminary diagnosis is Abdominal tenderness; Diverticular disease of intestine; Chest pain, unspecified; Elevated white blood cell count; Chronic obstructive pulmonary disease with (acute) exacerbation; Hypokalemia. Bed requested for Telemetry/MedSurg (observation). Status is Observation. Condition is Fair. Problem is new. Symptoms have improved. UTI on Admission? No. stephanie
--- NOTE | 2018-05-29 07:17 | ER ---
Nurse's Notes [facility] Name: Mega Farnsworth Age: 67 yrs Sex: Male : 1950 Arrival Date: 05/29/2018 Time: 02:50 Bed 7 Private MD: Diagnosis: Abdominal tenderness;Diverticular disease of intestine;Chest pain, unspecified;Elevated white blood cell count;Chronic obstructive pulmonary disease with (acute) exacerbation;Hypokalemia Presentation: 05/29 02:54 Presenting complaint: EMS states: "He is complaining of abdominal pain that has jd3 radiated to his chest. he says last time he was here with with this pain it was pancreatitis.". Transition of care: patient was not received from another setting of care. Onset of symptoms was May 29, 2018. Risk Assessment: Do you want to hurt yourself or someone else? Patient reports no desire to harm self or others. Initial Sepsis Screen: Does the patient meet any 2 criteria? No. Patient's initial sepsis screen is negative. Does the patient have a suspected source of infection? No. Patient's initial sepsis screen is negative. Care prior to arrival: IV initiated. 20 GA, in the left antecubital area. 02:54 Method Of Arrival: EMS: [facility] jd3 02:54 Acuity: DOMENICO 3 jd3 Historical: - Allergies: 02:59 NKDA; jd3 - Home Meds: 02:59 Protonix 20 mg Oral TbEC 1 tab once daily [Active]; lisinopril 40 mg Oral tab 1 tab jd3 once daily [Active]; - PMHx: 02:59 Anxiety; Hypertension; COPD; Ulcers; jd3 - PSHx: 02:59 None; jd3 - Immunization history:: Adult Immunizations unknown. - Social history:: Smoking status: Patient/guardian denies using tobacco. - Ebola Screening: : Patient negative for fever greater than or equal to 101.5 degrees Fahrenheit, and additional compatible Ebola Virus Disease symptoms. Screenin:01 Abuse screen: Denies threats or abuse. Nutritional screening: No deficits noted. jd3 Tuberculosis screening: No symptoms or risk factors identified. Fall Risk IV access (20 points). Ambulatory Aid- None/Bed Rest/Nurse Assist (0 pts). Gait- Normal/Bed Rest/Wheelchair (0 pts) Mental Status- Oriented to own ability (0 pts). Total Rhoades Fall Scale indicates No Risk (0-24 pts). Assessment: 03:25 General: Appears in no apparent distress. comfortable, Behavior is calm, cooperative, aa1 appropriate for age. Pain: Complains of pain in abdomen Pain radiates to chest Pain currently is 9 out of 10 on a pain scale. Neuro: Level of Consciousness is awake, alert, obeys commands, Oriented to person, place, time, situation, Moves all extremities. Speech is normal. Cardiovascular: Reports chest pain, Denies diaphoresis, palpitations, shortness of breath, Heart tones S1 S2 present Capillary refill < 3 seconds Clubbing of nail beds is absent Patient's skin is warm and dry. Rhythm is regular. Respiratory: Reports pain with respiration Airway is patent. GI: Abdomen is non-distended, Abd is soft X 4 quads Reports upper abdominal pain, nausea. : No signs and/or symptoms were reported regarding the genitourinary system. EENT: No signs and/or symptoms were reported regarding the EENT system. Derm: Skin is intact, is healthy with good turgor, Skin is pink, warm \\T\\ dry. Musculoskeletal: Circulation, motion, and sensation intact. Capillary refill < 3 seconds. 04:30 Reassessment: Patient appears in no apparent distress at this time. Patient and/or aa1 family updated on plan of care and expected duration. Pain level reassessed. Patient is alert, oriented x 3, equal unlabored respirations, skin warm/dry/pink. Pt taken to CT at this time. 05:40 Reassessment: Patient appears in no apparent distress at this time. Patient and/or aa1 family updated on plan of care and expected duration. Pain level reassessed. Patient is alert, oriented x 3, equal unlabored respirations, skin warm/dry/pink. Awaiting CT results. 06:42 Reassessment: Patient appears in no apparent distress at this time. Patient and/or jd3 family updated on plan of care and expected duration. Pain level reassessed. Patient is alert, oriented x 3, equal unlabored respirations, skin warm/dry/pink. 07:00 Reassessment: Patient appears in no apparent distress at this time. Patient and/or sg family updated on plan of care and expected duration. Pain level reassessed. Patient is alert, oriented x 3, equal unlabored respirations, skin warm/dry/pink. at bedside for hand off of care with Rosalio WHITESIDE, at bedside evaluating pt at this time, no new orders received, awaiting admission orders, awaiting a bed assignment, will continue to monitor. 08:39 Reassessment: Patient appears in no apparent distress at this time. tramadol 50 mg PO sg x1 T/O received from with 100% readback. Vital Signs: 02:59 BP 146 / 97; Pulse 70; Resp 19 S; Temp 98.0(TE); Pulse Ox 97% on R/A; Weight 74.84 kg jd3 (R); Height 5 ft. 8 in. (172.72 cm) (R); Pain 10/10; 04:15 BP 166 / 89; Pulse 71; Resp 18; Pulse Ox 97% on R/A; Pain 7/10; aa1 05:40 BP 157 / 97; Pulse 68; Resp 18; Pulse Ox 95% on R/A; Pain 5/10; aa1 06:43 BP 173 / 95; Pulse 70; Resp 17 S; Pulse Ox 94% on R/A; jd3 07:15 BP 154 / 96; Pulse 67; Resp 16; Pulse Ox 95% on R/A; sg 02:59 Body Mass Index 25.09 (74.84 kg, 172.72 cm) jd3 ED Course: 02:50 Patient arrived in ED. ds1 02:56 Triage completed. jd3 03:00 Arm band placed on. jd3 03:01 Patient has correct armband on for positive identification. Bed in low position. Call jd3 light in reach. Side rails up X 1. 03:03 Gustavo Marquez MD is Attending Physician. stephanie 03:13 Marta Leroy, STEVO is Primary Nurse. aa1 03:25 charge aide on. Pulse ox on. NIBP on. aa1 03:25 Patient maintains SpO2 saturation greater than 95% on room air. aa1 03:35 EKG done, by ED staff, reviewed by Gustavo Marquez MD. aa1 03:57 XRAY Chest (1 view) In Process Unspecified. EDMS 04:48 CT completed. Patient tolerated procedure well. Patient moved to CT via stretcher. Patient moved back from CT. 05:03 CT Abd/Pelvis - W/Contrast In Process Unspecified. EDMS 07:12 Awaiting bed assignment. sg 07:14 Munira Nino MD is Hospitalizing Provider. stephanie 07:28 Titus Wallace MD is Hospitalizing Provider. stephanie 08:50 No provider procedures requiring assistance completed. Patient admitted, IV remains in sg place. intact, No redness/swelling at site. Administered Medications: 03:35 Drug: NS 0.9% 1000 ml Route: IV; Rate: 125 ml/hr; Site: left antecubital; aa1 03:36 Drug: morphine 4 mg Route: IVP; Site: left antecubital; aa1 06:57 Follow up: Response: No adverse reaction jd3 03:36 Drug: Zofran 4 mg Route: IVP; Site: left antecubital; aa1 06:56 Follow up: Response: No adverse reaction jd3 04:40 Drug: Aspirin 162 mg Route: PO; aa1 06:56 Follow up: Response: No adverse reaction jd3 04:40 Drug: Pepcid 20 mg Route: IVP; Site: left antecubital; aa1 06:56 Follow up: Response: No adverse reaction jd3 04:40 Drug: NS 0.9% with KCl 20 mEq/L 1000 ml Route: IV; Rate: 125 ml/hr; Site: left aa1 antecubital; 04:41 Drug: Potassium Chloride 20 mEq Route: IV; Rate: per protocol; Site: left antecubital; aa1 06:57 Follow up: Response: No adverse reaction; IV Status: Completed infusion jd3 04:42 Drug: Flagyl 500 mg Volume: 100 ml; Route: IVPB; Rate: 200 ml/hr; Infused Over: 30 aa1 mins; Site: left antecubital; 06:58 Follow up: Response: No adverse reaction; IV Status: Completed infusion jd3 04:43 Drug: Cipro 400 mg Volume: 200 ml; Route: IVPB; Infused Over: 60 mins; Site: left aa1 antecubital; 06:06 Drug: morphine 4 mg Route: IVP; Site: left antecubital; jd3 06:55 Follow up: Response: No adverse reaction jd3 08:07 Drug: Potassium Effervescent Tablet 25 mEq Route: PO; sg 08:08 Drug: SOLU-Medrol 125 mg Route: IVP; Site: left antecubital; sg 08:08 Drug: Lopressor (metoprolol TARTRATE) 50 mg Route: PO; sg 08:08 Drug: Xopenex 2.5 mg Route: Inhalation; sg 08:08 Drug: AtroVENT Aerosol 0.5 mg Route: Inhalation; sg 08:09 Drug: Lovenox 1 mg/kg Route: Sub-Q; Site: right lower abdomen; sg 08:43 CANCELLED (Other Intervention Used): traMADol 50 mg PO once sg 08:49 Drug: traMADol 50 mg Route: PO; sg Outcome: 07:16 Decision to Hospitalize by Provider. stephanie 08:33 Admitted to Tele accompanied by tech, via stretcher, room 223, with chart, Report sg called to Esthela WHITESIDE 08:33 Condition: stable 08:33 Instructed on the need for admit, safety practices, Demonstrated understanding of instructions. 09:17 Patient left the ED. hb Signatures: Dispatcher [employer] EDMS Robert Baldwin RN RN Marta Leroy RN RN aa1 Gustavo Marquez MD MD cha Hagler, Ervin Leonarda Juarez ds1 Julieta Tierney RN RN Braulio Lovelace RN RN jd3 Corrections: (The following items were deleted from the chart) 03:02 02:54 Care prior to arrival: None. charlotte jd3 08:44 08:39 Reassessment: Patient appears in no apparent distress at this time. tramadol 50 sg mg IVP x1 T/O received from with 100% readback
[2018-05-29] MEDS ORDERED: METHYLPREDNISOLONE 125 MG INJ ONE (08:01)
[2018-05-29] MEDS ORDERED: LEVALBUTEROL 1.25 MG/3 ML NEB ONE ×2 (08:01→08:02)
[2018-05-29] MEDS ORDERED: METOPROLOL TAR 50 MG TAB ONE (08:01)
[2018-05-29] MEDS ORDERED: IPRATROPIUM BROM 0.5MG/2.5ML ONE (08:01)
[2018-05-29] MEDS ORDERED: ENOXAPARIN 80 MG/0.8 ML SQ ONE (08:02)
--- NOTE | 2018-05-29 08:17 | EKG ---
Test Date: 2018-05-29 Test Time: 03:28:10 Hand Plug Shaper: LEEANN MEASUREMENT RESULTS: Intervals: Rate: 68 RI: 158 QRSD: 104 QT: 434 QTc: 461 Branch: P: 34 RI: 158 QRS: 61 T: 24 INTERPRETIVE STATEMENTS: Normal sinus rhythm T wave abnormality, consider inferior ischemia Abnormal ECG Compared to ECG 01/22/2018 10:59:00 T-wave abnormality now present Possible ischemia now present Electronically Signed On 05-29-18 07:50:01 CDT by Jadon Chamorro
--- NOTE | 2018-05-29 08:21 | RAD REPORT ---
EXAM DESCRIPTION: RAD - Chest Single View - 05/29/2018 3:58 am CLINICAL HISTORY: CHEST PAIN Chest pain. COMPARISON: Chest Single View dated 01/22/2018; Chest Single View dated 01/19/2018; Chest Single View dated 06/10/2017; Chest Pa And Lat (2 Views) dated 05/07/2017 FINDINGS: Portable technique limits examination quality. The lungs are grossly clear. The heart is normal in size. No displaced fractures. IMPRESSION: No acute intrathoracic process suspected.
[2018-05-29] MEDS ORDERED: POTASSIUM 25 MEQ EFFERV TAB ONE (08:31)
[2018-05-29] MEDS ORDERED: TRAMADOL HCL 50 MG TAB ONE (08:57)
[2018-05-29 10:59] VITALS: BMI 25.0
--- NOTE | 2018-05-29 12:17 | RAD REPORT ---
EXAM DESCRIPTION: CT Abdomen and Pelvis With Intravenous Contrast CLINICAL HISTORY: The patient is 67 years old and is Male; ABD PAIN TECHNIQUE: Axial computed tomography images of the abdomen and pelvis with intravenous contrast. S agittal and coronal reformatted images were created and reviewed. This CT exam was performed using one or more of the following dose reduction techniques: automated exposure control, adjustment of t he mA and/or kV according to patient size, and/or use of iterative reconstruction technique. COMPARISON: No relevant prior studies available. FINDINGS: LUNG BASES: Unremarkable. No mass. No consolidation. MEDIASTINUM: A small hiatal hernia is present. ABDOMEN: LIVER: The liver is enlarged and diffusely fatty. GALLBLADDER AND BILE DUCTS: No calcified stones. No ductal dilation. PANCREAS: No ductal dilation. No mass. SPLEEN: Unremarkable. ADRENALS: Unremarkable. No mass. KIDNEYS AND URETERS: Bilateral nonspecific perinephric stranding is present. No obstructing emir l or ureteral calculus is in. There is no hydronephrosis or hydroureter of either kidney. STOMACH AND BOWEL: The stomach is filled with fluid and air. The small bowel is normal in calibe r. Stool is present throughout colon. No evidence of bowel obstruction. No significant bowel wall thi ckening. Colonic diverticulosis is noted, without associated inflammatory changes to suggest divertic ulitis. PELVIS: APPENDIX: The appendix is normal in caliber without surrounding inflammation. BLADDER: Unremarkable. No mass. REPRODUCTIVE: Innumerable calcifications are present within the prostate. ABDOMEN and PELVIS: INTRAPERITONEAL SPACE: Unremarkable. No free air. No significant fluid collection. BONES/JOINTS: Minimal degenerative changes of the spine present. Suggestion of the vertebral bod y hemangioma within L3 is noted. SOFT TISSUES: There are small bilateral fat containing inguinal hernias. VASCULATURE: Unremarkable. No abdominal aortic aneurysm. LYMPH NODES: Unremarkable. No enlarged lymph nodes. IMPRESSION: Colonic diverticulosis without evidence of diverticulitis. Electronically signed by: Gracy Lizarraga MD 05/29/2018 5:11 AM CDT Due to temporary technical issues with the PACS/Fluency reporting system, reports are being signed by the in house radiologist as a courtesy to ensure prompt reporting. The interpreting radiologist is f ully responsible for the content of the report.
[2018-05-29] MEDS ORDERED: TRAMADOL HCL 50 MG TAB PO PRN (12:25)
[2018-05-29] MEDS ORDERED: ALBUTEROL 2.5 MG/3 ML NEB SOL NEB SCH (14:00)
[2018-05-29] MEDS ORDERED: IPRATROPIUM BROM 0.5MG/2.5ML NEB SCH (14:00)
[2018-05-29 14:12] VITALS: O2SAT 94
[2018-05-29 16:10] VITALS: TEMP 97.4
[2018-05-29] MEDS ORDERED: ACETAMINOPHEN 500 MG TAB PO PRN (17:28)
[2018-05-29] MEDS ORDERED: MORPHINE 2 MG/ML SYR IV PRN (17:28)
--- NOTE | 2018-05-29 17:35 | P.HP ---
Certification for Inpatient Patient admitted to: Observation With expected LOS: <2 Midnights Practitioner: I am a practitioner with admitting privileges, knowledge of patient current condition, hospital course, and medical plan of care. Services: Services provided to patient in accordance with Admission requirements found in Title 42 Section 412.3 of the Code of Federal Regulations Patient History Date of Service: 05/29/18 Reason for admission: Chest pain and abdominal pain History of Present Illness: This is a 67-year-old current smoker male with a past medical history of hypertension, COPD, history of bleeding gastric ulcer admitted for left-sided chest pain and abdominal pain that started at 3:00 a.m. prior to admission. He states that his chest pain is left-sided, 10/10, sharp without any radiation. But the pain actually starts in the abdomen, left-sided which he also describes as sharp. He states that this pain happens every month and resolves spontaneously after he relaxes. This time, relaxed patient did not help take the pain away. This is why he called the ambulance. He denies any shortness of breath, fevers, chills, diarrhea, constipation, hematemesis or hematochezia, headache, vision changes, speech changes. In the ER, a CT scan was done which was normal, no evidence of diverticulitis. His labs were remarkable for potassium of 2.9 and a WBC count of 13.5. His chest x-ray was normal. He was hemodynamically stable. Troponin was negative x1 and his EKG without any acute abnormalities. At the time of my exam, patient was alert oriented x3 and hemodynamically stable. 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 Allergies No Known Drug Allergies Allergy (Verified 06/23/15 20:10) Unknown Home Medications: Lisinopril [Zestril] 10 mg PO DAILY 08/25/15 Aspirin [Aspirin EC 81 MG] 81 mg PO DAILY #90 giorgio. 12/13/15 Pantoprazole [Protonix Tab*] 40 mg PO DAILY #30 tab 12/13/15 - Past Medical/Surgical History Has patient received pneumonia vaccine in the past: No Diabetic: No -: Hypertension -: Anxiety -: GERD -: COPD -: History of Gastric ulcer -: Gastric ulcer repair -: Vasectomy Psychosocial/ Personal History: He is single, has 5 children, he does not work. - Family History Father -: Heart disease, Hypertension, Stroke Notes: heat stroke Mother -: Hypertension, Stroke - Social History Smoking Status: Current every day smoker Alcohol use: No CD- Drugs: No Caffeine use: Yes Place of Residence: Home Review of Systems 10-point ROS is otherwise unremarkable Physical Examination - Vital Signs Temperature: 97.4 F Blood Pressure: 165/97 Pulse: 60 Respirations: 18 Pulse Ox (%): 91 - Physical Exam General: Alert, In no apparent distress, Oriented x3 HEENT: Atraumatic, PERRLA, Mucous membr. moist/pink, EOMI, Sclerae nonicteric Neck: Supple, 2+ carotid pulse no bruit, No LAD, Without JVD or thyroid abnormality Respiratory: Clear to auscultation bilaterally, Normal air movement Cardiovascular: Regular rate/rhythm, Normal S1 S2 Gastrointestinal: Normal bowel sounds, Tenderness (Right upper and lower quadrant, on deep palpation) Musculoskeletal: No tenderness Integumentary: No rashes Neurological: Normal gait, Normal speech, Normal strength at 5/5 x4 extr, Normal tone, Normal affect Lymphatics: No axilla or inguinal lymphadenopathy - Studies Laboratory Data (last 24 hrs) 05/29/18 03:25: PT 12.0, INR 1.02 05/29/18 03:25: WBC 13.5 H, Hgb 15.0, Hct 44.1, Plt Count 284 05/29/18 03:25: Sodium 144, Potassium 2.9 L*, BUN 11, Creatinine 1.06, Glucose 129 H, Magnesium 1.8, Total Bilirubin 0.7, AST 56 H, ALT 52, Alkaline Phosphatase 76, Lipase 82 Assessment and Plan - Problems (Diagnosis) (1) Abdominal pain Current Visit: No Status: Acute Qualifiers: Abdominal location: left lower quadrant Qualified Code(s): R10.32 - Left lower quadrant pain (2) Anxiety Current Visit: No Status: Acute (3) Chest pain Onset Date: 06/24/15 Current Visit: No Status: Acute Qualifiers: Chest pain type: intercostal pain Qualified Code(s): R07.82 - Intercostal pain (4) Hypokalemia Onset Date: 07/11/15 Current Visit: No Status: Acute (5) COPD (chronic obstructive pulmonary disease) Current Visit: No Status: Chronic Qualifiers: COPD type: chronic bronchitis (6) GERD (gastroesophageal reflux disease) Onset Date: 07/11/15 Current Visit: No Status: Chronic Qualifiers: Esophagitis presence: without esophagitis Qualified Code(s): K21.9 - Gastro -esophageal reflux disease without esophagitis (7) Hypertension Onset Date: 06/24/15 Current Visit: No Status: Chronic Qualifiers: Hypertension type: essential hypertension Qualified Code(s): I10 - Essential (primary) hypertension (8) Tobacco abuse Current Visit: No Status: Chronic - Plan Patient Problems: Abdominal pain (Acute) R10.9 CT scan negative for any acute abnormalities, unremarkable physical exam. He looks like he is in no acute distress when he describes his pain as 10/10. Unsure of source of the pain. Could be possibly secondary to gastritis. Will continue protonix Will try and avoid IV pain medications as to not increase constipation and worsening abdominal pain. Pain control with tramadol at this time. Zofran for nausea Chest pain (Acute 06/24/15) R07.9 Troponins negative x2, EKG negative for any acute abnormalities. Echo ordered, pending Will continue to monitor IV morphine ordered, though would like to avoid as noted above. Nitro as needed for pain Beta-albina, statin and aspirin. Hypokalemia (Acute 07/11/15) E87.6 Replaced in the ER. Will continue to monitor replace as needed Anxiety (Chronic 10/25/15) F41.9 Does not seem to be on any home medications. Will continue to monitor COPD (chronic obstructive pulmonary disease) (Chronic) J44.9 Oxygen as needed Breathing treatments as needed He is not on any COPD medications at home GERD (gastroesophageal reflux disease) (Chronic 07/11/15) K21.9 P.o. Protonix continued (home medication) Hypertension (Chronic 06/24/15) I10 Blood pressure elevated, likely because he has not had his blood pressure medications. Will restart home lisinopril. Metoprolol added as noted above Will continue to monitor and adjust medications as needed Tobacco abuse (Chronic) Z72.0 Counseled on smoking cessation, 3 min Patient not interested in smoking cessation at this time DVT prophylaxis: Aspirin, encourage ambulation GI prophylaxis: Protonix, home medication Diet: Heart healthy Disposition: Admit to floor for observation with tele. Pending symptomatic improvement - Advance Directives Does patient have a Living Will: Yes Does patient have a Durable POA for Healthcare: Yes Time Spent Managing Pts Care (In Minutes): 55
[2018-05-29] MEDS ORDERED: NITROGLYCERIN 0.4 MG/TAB SL PRN (17:40)
[2018-05-29] MEDS ORDERED: METOPROLOL TAR 25 MG TAB PO SCH (18:00)
[2018-05-29 18:06] VITALS: BP 173/69
[2018-05-29] MEDS ORDERED: ATORVASTATIN 40 MG TAB PO SCH (21:00)
[2018-05-30] MEDS ORDERED: PANTOPRAZOLE 40MG TABLET PO SCH (07:30)
[2018-05-30] MEDS ORDERED: LISINOPRIL 10 MG TAB PO SCH (09:00)
[2018-05-30] MEDS ORDERED: ENOXAPARIN 40 MG/0.4 ML SQ SCH (09:00)
[2018-05-30] MEDS ORDERED: ASPIRIN EC 81 MG TAB PO SCH (09:00)
--- NOTE | 2018-06-06 11:21 | P.SSS ---
Patient History Date of Service: 05/29/18 Reason for admission: Chest pain and abdominal pain History of Present Illness: This is a 67-year-old current smoker male with a past medical history of hypertension, COPD, history of bleeding gastric ulcer admitted for left-sided chest pain and abdominal pain that started at 3:00 a.m. prior to admission. He states that his chest pain is left-sided, 10/10, sharp without any radiation. But the pain actually starts in the abdomen, left-sided which he also describes as sharp. He states that this pain happens every month and resolves spontaneously after he relaxes. This time, relaxed patient did not help take the pain away. This is why he called the ambulance. He denies any shortness of breath, fevers, chills, diarrhea, constipation, hematemesis or hematochezia, headache, vision changes, speech changes. In the ER, a CT scan was done which was normal, no evidence of diverticulitis. His labs were remarkable for potassium of 2.9 and a WBC count of 13.5. His chest x-ray was normal. He was hemodynamically stable. Troponin was negative x1 and his EKG without any acute abnormalities. At the time of my exam, patient was alert oriented x3 and hemodynamically stable. 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 Allergies No Known Drug Allergies Allergy (Verified 06/23/15 20:10) Unknown Home Medications: Lisinopril [Zestril] 10 mg PO DAILY 08/25/15 Aspirin [Aspirin EC 81 MG] 81 mg PO DAILY #90 12/13/15 Pantoprazole [Protonix Tab*] 40 mg PO DAILY #30 tab 12/13/15 - Past Medical/Surgical History Has patient received pneumonia vaccine in the past: No Diabetic: No -: Hypertension -: Anxiety -: GERD -: COPD -: History of Gastric ulcer -: Gastric ulcer repair -: Vasectomy Psychosocial/ Personal History: He is single, has 5 children, he does not work. - Family History Father -: Heart disease, Hypertension, Stroke Notes: heat stroke Mother -: Hypertension, Stroke - Social History Smoking Status: Current every day smoker Alcohol use: No CD- Drugs: No Caffeine use: Yes Place of Residence: Home Review of Systems 10-point ROS is otherwise unremarkable Physical Examination - Vital Signs Temperature: 97.4 F Blood Pressure: 173/69 Pulse: 53 Respirations: 18 Pulse Ox (%): 91 - Diagnosis (Problem(s)) (1) Abdominal pain Status: Acute Qualifiers: Abdominal location: left lower quadrant Qualified Code(s): R10.32 - Left lower quadrant pain (2) Anxiety Status: Acute (3) Chest pain Onset Date: 06/24/15 Status: Acute Qualifiers: Chest pain type: intercostal pain Qualified Code(s): R07.82 - Intercostal pain (4) Hypokalemia Onset Date: 07/11/15 Status: Acute (5) COPD (chronic obstructive pulmonary disease) Status: Chronic Qualifiers: COPD type: chronic bronchitis (6) GERD (gastroesophageal reflux disease) Onset Date: 07/11/15 Status: Chronic Qualifiers: Esophagitis presence: without esophagitis Qualified Code(s): K21.9 - Gastro -esophageal reflux disease without esophagitis (7) Hypertension Onset Date: 06/24/15 Status: Chronic Qualifiers: Hypertension type: essential hypertension Qualified Code(s): I10 - Essential (primary) hypertension (8) Tobacco abuse Status: Chronic Treatment Summary: Patient was admitted for abdominal pain/chest pain. Troponins were negative. Workup was orderded and pending. Patient decided to leave AMA because he was not getting pain medications. He did have tramadol and morphine ordered. I also had a discussion with him regarding pain medications. - Disposition Discharge Date: 05/29/18 Disposition: AMA-LEFT AGAINST MEDICAL ADVIC
== END 2018-05-29 19:22 | disposition left against medical advice (07) ==
LOC: ER 02:49 → ERHOLD 07:38 → 2ND 08:36
PROVIDERS: ADMIT Family Medicine; ATTEND Family Medicine
DX: R07.82 Intercostal pain (principal); R10.9 Unspecified abdominal pain; J42 Unspecified chronic bronchitis; I10 Essential (primary) hypertension; F41.9 Anxiety disorder, unspecified; E87.6 Hypokalemia; K21.9 Gastro-esophageal reflux disease without esophagitis; Z72.0 Tobacco use; Z87.11 Personal history of peptic ulcer disease
CPT/HCPCS: 96365; 93005; 87088; 85025; 87086; 80048; 36415; 83735; 84132; 85610; 80076; 81003; 84484 ×3; 83690; 83880; 74177; 71045; 94640 ×2; 94760 ×2; 96375; 96372; 99285; Q9967; J1650; J7030; J2930; J2405; J0744; G0378 ×2

== ENCOUNTER 2018-05-31 08:58 | Emergency (ER) | payer OTHER ==
[2018-05-31] MEDS ORDERED: KETOROLAC 30 MG/ML INJ ONE (09:37)
[2018-05-31] MEDS ORDERED: IPRATROPIUM BROM 0.5MG/2.5ML ONE (09:37)
[2018-05-31] MEDS ORDERED: ALBUTEROL 2.5 MG/3 ML NEB SOL ONE (09:37)
[2018-05-31 09:50] LABS: Absolute Lymphocytes (CBC) 1.4 K/uL (0.7-4.9); Absolute Monocytes 0.8 K/uL (0.1-1.3); Basophils % 0.4 % (0-1.3); Eosinophils % 0.3 % (0-4.4); Hematocrit 43.9 % (39.6-49.0); MPV 8.3 fL (7.6-11.3); Monocytes % 5.4 % (3.3-12.3); RBC Red Blood Cell Count 4.35 M/uL (4.33-5.43)
[2018-05-31 10:05] LABS: Magnesium 1.7 mg/dL (1.8-2.4); NT PRO-BNP 689 pg/mL (<125); Troponin (Emerg Dept Use Only) < 0.02 ng/mL (0.0-0.045)
--- NOTE | 2018-05-31 11:15 | RAD REPORT ---
EXAM DESCRIPTION: Dm Single View05/31/2018 9:56 am CLINICAL HISTORY: Chest pain COMPARISON: May 29, 2018 FINDINGS: The lungs appear clear of acute infiltrate. The heart is normal size IMPRESSION: No acute abnormalities displayed
--- NOTE | 2018-05-31 11:29 | EDPHYS ---
Physician Documentation [facility] Name: Mega Farnsworth Age: 67 yrs Sex: Male : 1950 Arrival Date: 05/31/2018 Time: 09:00 Bed 2 Private MD: ED Physician Kyree Oakley HPI: 05/31 09:12 This 67 yrs old Male presents to ER via EMS with complaints of Chest ps1 Tightness. 09:12 patient was seen and evaluated yesterday for same complaints. Patient was admitted to [facility] the hospital and then left AMA because he wanted more pain medications and said that he did not receive any. He indeed received tramadol, multiple doses of morphine. Patient was admitted for chest pain and COPD exacerbation. He is here again for chest pain. Pain localized to his chest. He is speaking in full sentences and does not appear to be in respiratory distress. . Historical: - Allergies: 09:00 NKDA; aa5 - PMHx: 09:00 Anxiety; COPD; Hypertension; Ulcers; aa5 - PSHx: 09:00 None; aa5 - Ebola Screening: : No symptoms or risks identified at this time. - Social history:: Smoking status: Patient uses tobacco products, smokes one pack cigarettes per day. ROS: 09:12 Constitutional: Negative for fever, chills, and weight loss, Eyes: Negative for injury, ps1 pain, redness, and discharge, Abdomen/GI: Negative for abdominal pain, nausea, vomiting, diarrhea, and constipation, MS/Extremity: Negative for injury and deformity, Skin: Negative for injury, rash, and discoloration, Neuro: Negative for headache, weakness, numbness, tingling, and seizure. 09:12 Cardiovascular: Positive for chest pain. 09:12 Respiratory: Positive for cough, wheezing. Exam: 09:12 Constitutional: This is a well developed, well nourished patient who is awake, alert, ps1 and in no acute distress. Head/Face: Normocephalic, atraumatic. Chest/axilla: Normal chest wall appearance and motion. Nontender with no deformity. No lesions are appreciated. Cardiovascular: Regular rate and rhythm. No gallops, murmurs, or rubs. Normal PMI, no JVD. No pulse deficits. Respiratory: Lungs have equal breath sounds bilaterally, clear to auscultation and percussion. No rales, rhonchi or wheezes noted. No increased work of breathing, no retractions or nasal flaring. Abdomen/GI: Soft, non-tender, with normal bowel sounds. No distension or tympany. No guarding or rebound. No evidence of tenderness throughout. MS/ Extremity: Pulses equal, no cyanosis. Neurovascular intact. Full, normal range of motion. Neuro: Awake and alert, GCS 15, oriented to person, place, time, and situation. Cranial nerves II-XII grossly intact. Sensory grossly intact. Psych: Awake, alert, with orientation to person, place and time. Behavior, mood, and affect are within normal limits. Vital Signs: 09:02 BP 160 / 97; Pulse 61; Resp 16 S; Temp 98.4(O); Pulse Ox 95% on R/A; Pain 10/10; aa5 09:30 BP 163 / 89; Pulse 78; Resp 18 S; Pulse Ox 92% on R/A; aa5 09:32 Pulse Ox 100% on Nebulizer Mask; aa5 10:00 BP 143 / 89; Pulse 75; Resp 16 S; Pulse Ox 91% on R/A; aa5 11:30 BP 145 / 88; Pulse 74; Resp 18 S; Temp 98.0(TE); Pulse Ox 94% on R/A; Pain 10/10; aa5 MDM: 09:20 Patient medically screened. ps1 11:19 Data reviewed: vital signs, nurses notes, lab test result(s), radiologic studies, and ps1 as a result, I will. 11:20 Data interpreted: shelter monitor: Pulse oximetry: on room air is 91 %. Interpretation: ps1 acceptable. Counseling: I had a detailed discussion with the patient and/or guardian regarding: the historical points, exam findings, and any diagnostic results supporting the discharge/admit diagnosis, lab results, radiology results, to return to the emergency department if symptoms worsen or persist or if there are any questions or concerns that arise at home. ED course: patient has been sleeping in room comfortably since presentation. When he wakes up he attests to pain that is non-specific. EKG is wnl. He had troponins done yesterday and this morning which are normal so cardiac etiology is highly unlikely as he essentially had a rule out. Leukocytosis is marginally elevated but he received steroids yesterday. He is able to ambulate and does not desat. Pt can follow up with PCP. Azithromycin for COPD exacerbation. Home with medrol dosepack. . 05/31 09:19 Order name: CBC with Diff; Complete Time: 09:58 ps1 05/31 09:19 Order name: Magnesium; Complete Time: 10:20 ps1 05/31 09:19 Order name: NT PRO-BNP; Complete Time: 10:20 ps1 05/31 09:19 Order name: Troponin (emerg Dept Use Only); Complete Time: 10:20 ps1 05/31 09:19 Order name: XRAY Chest (1 view); Complete Time: 11:20 ps1 05/31 09:19 Order name: EKG; Complete Time: 09:20 ps1 05/31 09:19 Order name: Cardiac monitoring; Complete Time: 09:21 ps1 05/31 09:19 Order name: EKG - Nurse/Tech; Complete Time: 09:21 ps1 05/31 09:19 Order name: IV Saline Lock; Complete Time: 09:37 ps1 05/31 09:19 Order name: Labs collected and sent; Complete Time: 09:37 ps1 05/31 09:19 Order name: O2 Per Protocol; Complete Time: 09:22 ps1 05/31 09:19 Order name: O2 Sat Monitoring; Complete Time: 09:21 ps1 EC:02 Rate is 60 beats/min. Rhythm is regular. QRS Grant is Normal. AL interval is normal. QRS ps1 interval is normal. QT interval is normal. No Q waves. T waves are Normal. No ST changes noted. Clinical impression: Normal ECG. Interpreted by me. Administered Medications: 09:30 Drug: DuoNeb (3:1) (2.5 mg - 0.5 mg) 3 ml Route: Nebulizer; aa5 09:45 Follow up: Response: No adverse reaction aa5 09:30 Drug: TORadol 30 mg Route: IVP; Site: right forearm; aa5 09:45 Follow up: Response: No adverse reaction aa5 Disposition: 05/31/18 11:28 Discharged to Home. Impression: Other chest pain, COPD exacerbation. - Condition is Stable. - Discharge Instructions: Chest Wall Pain, Chronic Obstructive Pulmonary Disease. - Prescriptions for Zithromax Z- Emeka 250 mg Oral Tablet - take 1 tablet by ORAL route as directed for 5 days Day 1 - take two (2) tablets one time. Day 2, 3, 4 , 5 take one (1) tablet once daily.; 6 tablet. Medrol (Emeka) 4 mg Oral Tablets, Dose Pack - take 1 tablet by ORAL route as directed - follow package instructions; 1 packet. Tylenol- Codeine #3 300-30 mg Oral Tablet - take 2 tablet by ORAL route every 6 hours As needed; 30 tablet. - Medication Reconciliation Form, Thank You Letter, Antibiotic Education, Prescription Opioid Use form. - Follow up: Private Physician; When: 48 Hours; Reason: Further diagnostic work-up. Follow up: Emergency Department; When: As needed; Reason: Fever > 102 F, Worsening of condition. - Problem is chronic. - Symptoms have improved. Signatures: Dispatcher [employer] EDKarlie Navarro RN RN aa5 Kyree Oakley MD MD ps1 Corrections: (The following items were deleted from the chart) 12:05 11:28 05/31/2018 11:28 Discharged to Home. Impression: Other chest pain; COPD aa5 exacerbation. Condition is Stable. Forms are Medication Reconciliation Form, Thank You Letter, Antibiotic Education, Prescription Opioid Use. Follow up: Private Physician; When: 48 Hours; Reason: Further diagnostic work-up. Follow up: Emergency Department; When: As needed; Reason: Fever > 102 F, Worsening of condition. Problem is chronic. Symptoms have improved. ps1
--- NOTE | 2018-05-31 11:29 | ER ---
Nurse's Notes [facility] Name: Mega Farnsworth Age: 67 yrs Sex: Male : 1950 Arrival Date: 05/31/2018 Time: 09:00 Bed 2 Private MD: Diagnosis: Other chest pain;COPD exacerbation Presentation: 05/31 09:00 Presenting complaint: Patient states: seen here for chest pain and abd pain yesterday, aa5 was admitted and left AMA yesterday. Pt states "I left because they wouldn't give me any pain medicine". Pt c/o chest pain a this time, denies abd pain. Denies SOB, denies nausea/vomiting. 09:00 Transition of care: patient was not received from another setting of care. Onset of aa5 symptoms was May 2018. Risk Assessment: Do you want to hurt yourself or someone else? Patient reports no desire to harm self or others. Initial Sepsis Screen: Does the patient meet any 2 criteria? No. Patient's initial sepsis screen is negative. Does the patient have a suspected source of infection? No. Patient's initial sepsis screen is negative. Care prior to arrival: None. 09:00 Acuity: DOMENICO 3 aa5 09:00 Method Of Arrival: EMS: [facility] aa5 Historical: - Allergies: 09:00 NKDA; aa5 - PMHx: 09:00 Anxiety; COPD; Hypertension; Ulcers; aa5 - PSHx: 09:00 None; aa5 - Ebola Screening: : No symptoms or risks identified at this time. - Social history:: Smoking status: Patient uses tobacco products, smokes one pack cigarettes per day. Screenin:14 Abuse screen: Denies threats or abuse. Nutritional screening: No deficits noted. aa5 Tuberculosis screening: No symptoms or risk factors identified. Fall Risk None identified. Assessment: 09:05 General: Appears comfortable, Behavior is calm, cooperative. Pain: Complains of pain in aa5 anterior aspect of left upper chest and left breast Pain does not radiate. Pain currently is 10 out of 10 on a pain scale. Quality of pain is described as heavy, pressure, Pain began 1 day ago. Is continuous. Neuro: Level of Consciousness is awake, alert, obeys commands, Oriented to person, place, time, situation. Cardiovascular: Heart tones S1 S2 present Rhythm is regular. Respiratory: Airway is patent Respiratory effort is even, unlabored, Respiratory pattern is regular, symmetrical, Breath sounds are clear bilaterally. Denies shortness of breath. GI: Abdomen is round Bowel sounds present X 4 quads. Abd is soft and non tender X 4 quads. : No signs and/or symptoms were reported regarding the genitourinary system. EENT: No signs and/or symptoms were reported regarding the EENT system. Derm: Skin is pink, warm \\T\\ dry. Musculoskeletal: Range of motion: intact in all extremities. 09:45 Reassessment: Patient is alert, oriented x 3, equal unlabored respirations, skin aa5 warm/dry/pink. Neb completed, pt states feeling better. . 10:35 Reassessment: Pt resting in bed with eyes closed, respirations even and unlabored, skin aa5 is pink/warm/dry. . 11:00 Reassessment: Pt resting in bed with eyes closed, respirations even and unlabored, skin aa5 is pink/warm/dry. Awaiting disposition. . 11:30 Reassessment: Patient is alert, oriented x 3, equal unlabored respirations, skin aa5 warm/dry/pink. To bedside to d/c pt, pt requesting pain medication prescription, was notified. . Vital Signs: 09:02 BP 160 / 97; Pulse 61; Resp 16 S; Temp 98.4(O); Pulse Ox 95% on R/A; Pain 10/10; aa5 09:30 BP 163 / 89; Pulse 78; Resp 18 S; Pulse Ox 92% on R/A; aa5 09:32 Pulse Ox 100% on Nebulizer Mask; aa5 10:00 BP 143 / 89; Pulse 75; Resp 16 S; Pulse Ox 91% on R/A; aa5 11:30 BP 145 / 88; Pulse 74; Resp 18 S; Temp 98.0(TE); Pulse Ox 94% on R/A; Pain 10/10; aa5 ED Course: 09:00 Patient arrived in ED. ss 09:00 Arm band placed on. aa5 09:00 Patient has correct armband on for positive identification. Placed in gown. Bed in low aa5 position. Call light in reach. Side rails up X2. disposal operator on. Pulse ox on. NIBP on. 09:01 Karlie Wagoner, RN is Primary Nurse. aa5 09:06 Kyree Oakley MD is Attending Physician. ps1 09:08 Triage completed. aa5 09:18 No provider procedures requiring assistance completed. Patient maintains SpO2 aa5 saturation greater than 95% on room air. 09:26 Inserted saline lock: 20 gauge in right forearm, using aseptic technique. Blood bp collected. 09:54 XRAY Chest (1 view) In Process Unspecified. EDMS 12:00 IV discontinued, intact, bleeding controlled, No redness/swelling at site. Pressure aa5 dressing applied. Administered Medications: 09:30 Drug: DuoNeb (3:1) (2.5 mg - 0.5 mg) 3 ml Route: Nebulizer; aa5 09:45 Follow up: Response: No adverse reaction aa5 09:30 Drug: TORadol 30 mg Route: IVP; Site: right forearm; aa5 :45 Follow up: Response: No adverse reaction aa5 Outcome: 11:28 Discharge ordered by MD. ps1 12:00 Discharged to home via wheelchair. aa5 12:00 Condition: stable 12:00 Discharge instructions given to patient, Instructed on discharge instructions, follow up and referral plans. medication usage, Demonstrated understanding of instructions, follow-up care, medications, Prescriptions given X 3. 12:05 Patient left the ED. aa5 Signatures: Dispatcher [employer] EDMS Karlie Wagoner RN RN aa5 Hoda Simmons RN RN ss Peltier, Brian, RN RN bp Singer, Phillip, MD MD ps1 Corrections: (The following items were deleted from the chart) 09:20 09:02 BP 160 / 97; Pulse 61bpm; Resp 16bpm; Spontaneous; Pulse Ox 95% RA; Temp 98.4F aa5 Oral; aa5 09:21 09:05 Pain: Complains of pain in anterior aspect of left upper chest and left breast aa5 Pain does not radiate. Pain currently is 10 out of 10 on a pain scale. Quality of pain is described as heavy, pressure, Pain began Is continuous, aa5
[2018-05-31] MEDS ORDERED: ACETAMINOPHEN 325 MG TABLET ONE (12:03)
[2018-05-31 12:12] VITALS: TEMP 98.4
[2018-05-31 12:15] VITALS: BP 143/89; O2SAT 91
--- NOTE | 2018-06-02 05:57 | EKG ---
Test Date: 2018-05-31 Test Time: 09:02:53 Computer Systems Technician: MICHAEL MEASUREMENT RESULTS: Intervals: Rate: 60 W[place]: 148 QRSD: 96 QT: 446 QTc: 446 [place]: P: 53 WY: 148 QRS: 73 T: 57 INTERPRETIVE STATEMENTS: Normal sinus rhythm Normal ECG Compared to ECG 05/29/2018 03:28:10 T-wave abnormality no longer present Possible ischemia no longer present Electronically Signed On 06-02-18 05:57:25 CDT by Jadon Chamorro
== END 2018-05-31 12:05 | disposition home or self-care (01) ==
LOC: ER 08:58
DX: J44.1 Chronic obstructive pulmonary disease with (acute) exacerbation (principal); R07.89 Other chest pain; F41.9 Anxiety disorder, unspecified; I10 Essential (primary) hypertension; F17.210 Nicotine dependence, cigarettes, uncomplicated
CPT/HCPCS: 36415; 71045; 83735; 83880; 84484; 85025; 93005; 94640; 96374; 99285

== ENCOUNTER 2019-01-07 12:49 | Observation (INO) | payer OTHER ==
[2019-01-07 13:15] LABS: Absolute Lymphocytes (CBC) 1.8 K/uL (0.7-4.9); Basophils % 1.3 % (0-1.3); Lymphocytes % 26.8 % (15.3-44.8); MPV 8.6 fL (7.6-11.3); Protime INR 0.97; RBC Red Blood Cell Count 4.18 M/uL (4.33-5.43)
[2019-01-07] MEDS ORDERED: MORPHINE 4 MG/ML SYR ONE ×2 (13:22→15:57)
[2019-01-07] MEDS ORDERED: ONDANSETRON 4 MG/2 ML VIAL ONE ×2 (13:22→15:57)
[2019-01-07 13:37] LABS: ALT/SGPT 56 U/L (12-78); AST/SGOT 51 U/L (15-37); Albumin 3.5 g/dL (3.4-5.0); Alkaline Phosphatase 58 U/L (45-117); BUN Blood Urea Nitrogen 6 mg/dL (7-18); Bicarbonate 22 mmol/L (21-32); Bilirubin Direct 0.1 mg/dL (0-0.2); Bilirubin Total 0.4 mg/dL (0.2-1.0); Glucose Level 93 mg/dL (74-106); NT PRO-BNP 38 pg/mL (<125); Potassium 3.5 mmol/L (3.5-5.1); Protein, Total 6.4 g/dL (6.4-8.2); Sodium Level 141 mmol/L (136-145); Troponin (Emerg Dept Use Only) < 0.02 ng/mL (0.0-0.045)
--- NOTE | 2019-01-07 14:03 | RAD REPORT ---
EXAM DESCRIPTION: RAD - Chest Single View - 01/07/2019 1:57 pm CLINICAL HISTORY: CHEST PAIN Chest pain. COMPARISON: Chest Single View dated 10/03/2018; Chest Single View dated 05/31/2018; Chest Single View dated 05/29/2018; Chest Single View dated 01/22/2018 FINDINGS: Portable technique limits examination quality. The lungs are mildly emphysematous but grossly clear. The heart is upper limit of normal in size. No displaced fractures.
[2019-01-07 14:12] LABS: Magnesium 1.2 mg/dL (1.8-2.4)
--- NOTE | 2019-01-07 14:38 | EDPHYS ---
Physician Documentation [facility] Name: Mega Farnsworth Age: 68 yrs Sex: Male : 1950 Arrival Date: 01/07/2019 Time: 12:51 Bed 8 Private MD: ED Physician Alo Peñaloza HPI: 01/07 13:20 This 68 yrs old Male presents to ER via EMS with complaints of Chest Pain. ma2 13:27 The patient or guardian reports chest pain that is located primarily in the substernal ma2 area. Onset: suddenly, 2 hour(s) ago. Associated signs and symptoms: Pertinent positives: Pertinent negatives: None. dizziness, lower extremity swelling. The chest pain is described as clutching. Duration: The patient or guardian reports a single episode. Severity of pain: At its worst the pain was mild in the emergency department the pain is unchanged. The patient has not experienced similar symptoms in the past. 13:27 The patient has experienced similar episodes in the past. ma2 Historical: - Allergies: 12:54 NKDA; jl7 - Home Meds: 12:54 lisinopril 40 mg Oral tab 1 tab once daily [Active]; Protonix 20 mg Oral TbEC 1 tab jl7 once daily [Active]; - PMHx: 12:54 Anxiety; COPD; Hypertension; Ulcers; jl7 - PSHx: 12:54 CABG; jl7 - Immunization history:: Adult Immunizations not up to date. - Social history:: Smoking status: Patient uses tobacco products, smokes one pack cigarettes per day. Patient/guardian denies using alcohol, street drugs, The patient lives with family. - Ebola Screening: : No symptoms or risks identified at this time. - Family history:: not pertinent. ROS: 13:27 Constitutional: Negative for fever, chills, and weight loss. ma2 13:27 All other systems are negative. ma2 Exam: 13:27 Constitutional: This is a well developed, well nourished patient who is awake, alert, ma2 and in no acute distress. ENT: Nares patent. No nasal discharge, no septal abnormalities noted. Tympanic membranes are normal and external auditory canals are clear. Oropharynx with no redness, swelling, or masses, exudates, or evidence of obstruction, uvula midline. Mucous membranes moist. Chest/axilla: Normal chest wall appearance and motion. Nontender with no deformity. No lesions are appreciated. Cardiovascular: Regular rate and rhythm with a normal S1 and S2. No gallops, murmurs, or rubs. Normal PMI, no JVD. No pulse deficits. Respiratory: Lungs have equal breath sounds bilaterally, clear to auscultation and percussion. No rales, rhonchi or wheezes noted. No increased work of breathing, no retractions or nasal flaring. Abdomen/GI: Soft, non-tender, with normal bowel sounds. No distension or tympany. No guarding or rebound. No evidence of tenderness throughout. Vital Signs: 12:54 BP 169 / 104; Pulse 83; Resp 16 S; Pulse Ox 98% on R/A; Pain 10/10; jl7 13:30 BP 152 / 108; Pulse 83; Resp 12; Pulse Ox 97% on R/A; rb1 13:40 Pain 2/10; jl7 14:23 BP 151 / 101; Pulse 82; Resp 15 S; Temp 97.9(O); Pulse Ox 96% on R/A; Pain 5/10; jl7 15:30 BP 150 / 98; Pulse 75; Resp 16 S; Pulse Ox 97% on R/A; rb1 17:01 BP 157 / 101; Pulse 90; Resp 16 S; Pulse Ox 98% on R/A; rb1 MDM: 12:55 Patient medically screened. ma2 13:27 Differential diagnosis: abnormal EKG, acute pericarditis, anxiety, coronary artery ma2 disease gastroesophageal reflux disease (GERD). HEART Score: History: Moderately Suspicious (1), ECG: Normal (0), Age: > or = 65 years (2), Risk Factors: > or = 3 Risk factors for atherosclerotic disease (2), Troponin:. 14:36 The patient was given aspirin in the Emergency Department. Data reviewed: vital signs, ma2 nurses notes. Counseling: I had a detailed discussion with the patient and/or guardian regarding: the historical points, exam findings, and any diagnostic results supporting the discharge/admit diagnosis, the presence of at least one elevated blood pressure reading (>120/80) during this emergency department visit, the need for further work-up and treatment in the hospital. ED course: discussed with dr. Abreu. 01/07 12:55 Order name: Basic Metabolic Panel; Complete Time: 14:31 ma2 01/07 12:55 Order name: CBC with Diff; Complete Time: 13:20 ma2 01/07 12:55 Order name: LFT's; Complete Time: 14:31 ma2 01/07 12:55 Order name: Magnesium; Complete Time: 14:31 ma2 01/07 12:55 Order name: NT PRO-BNP; Complete Time: 14:31 ma2 01/07 12:55 Order name: PT-INR; Complete Time: 13:32 ma2 01/07 12:55 Order name: Troponin (emerg Dept Use Only); Complete Time: 14:31 ma2 01/07 15:54 Order name: Thyroid Stimulating Hormone; Complete Time: 17:17 EDMS 01/07 15:54 Order name: Urinalysis EDMS 01/07 15:54 Order name: CBC with Automated Diff EDMS 01/07 15:54 Order name: CBC with Automated Diff EDMS 01/07 15:54 Order name: CKMB Creatine Kinase MB EDMS 01/07 15:54 Order name: CKMB Creatine Kinase MB EDMS 01/07 15:55 Order name: CKMB Creatine Kinase MB EDMS 01/07 12:55 Order name: XRAY Chest (1 view); Complete Time: 14:31 ma2 01/07 15:55 Order name: CKMB Creatine Kinase MB EDMS 01/07 15:55 Order name: Comprehensive Metabolic Panel EDMS 01/07 15:55 Order name: Comprehensive Metabolic Panel EDMS 01/07 15:55 Order name: Lipid Profile EDMS 01/07 15:55 Order name: Lipid Profile EDMS 01/07 15:55 Order name: Magnesium EDMS 01/07 15:55 Order name: Magnesium EDMS 01/07 15:55 Order name: Phosphorus EDMS 01/07 15:55 Order name: Phosphorus EDMS 01/07 15:55 Order name: Troponin I EDMS 01/07 15:55 Order name: Troponin I EDMS 01/07 15:55 Order name: Troponin I EDMS 01/07 15:55 Order name: Troponin I EDMS 01/07 12:55 Order name: EKG; Complete Time: 12:56 ma2 01/07 12:55 Order name: Cardiac monitoring; Complete Time: 13:09 ma2 11/20 12:55 Order name: EKG - Nurse/Tech; Complete Time: 13:07 [facility] 01/07 12:55 Order name: IV Saline Lock; Complete Time: 13:07 [facility] 01/07 12:55 Order name: Labs collected and sent; Complete Time: 13:07 [facility] 01/07 12:55 Order name: O2 Per Protocol; Complete Time: 13:07 [facility] 01/07 12:55 Order name: O2 Sat Monitoring; Complete Time: 13:07 [facility] 01/07 15:54 Order name: CONS Physician Consult [facility] 01/07 15:54 Order name: Heart Healthy [facility] 01/07 16:20 Order name: Diet Heart Healthy; Complete Time: 16:21 ss Administered Medications: 13:21 Drug: Zofran 4 mg Route: IVP; Site: left forearm; aa5 14:25 Follow up: Response: No adverse reaction jl7 13:23 Drug: morphine 4 mg Route: IVP; Site: left forearm; aa5 13:40 Follow up: Pain 2/10 Adult; Response: No adverse reaction; Pain is decreased jl7 15:58 Drug: Zofran 4 mg Route: IVP; Site: left forearm; aa5 16:30 Follow up: Response: No adverse reaction; Pain is decreased rb1 16:00 Drug: morphine 4 mg Route: IVP; Site: left forearm; aa5 16:30 Follow up: Response: No adverse reaction; Pain is decreased rb1 17:28 CANCELLED (pt up to the floor, floor nurse notified): Magnesium Sulfate 1 grams IVPB ss once over 1 hrs Disposition: 01/07/19 14:37 Hospitalization ordered by Bruce Gee for Observation. Preliminary diagnosis is Chest pain, unspecified. - Bed requested for Telemetry/MedSurg (observation). - Status is Observation. ss - Condition is Stable. - Problem is new. - Symptoms are unchanged. UTI on Admission? No Signatures: Dispatcher [employer] [facility] Yamilet Vasquez Audri RN RN aa5 Hoda Simmons RN RN Junior Moe RN RN jl7 Alo Peñaloza MD MD oh2 Pratibha Narayanan RN rb1 Corrections: (The following items were deleted from the chart) 16:18 14:37 Hospitalization Ordered by Bruce Gee MD for Observation. Preliminary bd diagnosis is Chest pain, unspecified. Bed requested for Telemetry/MedSurg (observation). Status is Observation. Condition is Stable. Problem is new. Symptoms are unchanged. UTI on Admission? No. ma2 17:28 17:18 Magnesium Sulfate 1 grams IVPB once over 1 hrs ordered. ma2 ss 17:28 16:18 01/07/2019 14:37 Hospitalization Ordered by Bruce Gee MD for Observation. Preliminary diagnosis is Chest pain, unspecified. Bed requested for Telemetry/MedSurg (observation). Status is Observation. Condition is Stable. Problem is new. Symptoms are unchanged. UTI on Admission? No. bd
--- NOTE | 2019-01-07 14:38 | ER ---
Nurse's Notes [facility] Name: Mega Farnsworth Age: 68 yrs Sex: Male : 1950 Arrival Date: 01/07/2019 Time: 12:51 Bed 8 Private MD: Diagnosis: Chest pain, unspecified Presentation: 01/07 12:52 Presenting complaint: EMS states: Non-radiating left sided chest pain and SOB started jl7 45 min ago. Transition of care: patient was not received from another setting of care. Onset of symptoms was January 07, 2019 at 12:05. Risk Assessment: Do you want to hurt yourself or someone else? Patient reports no desire to harm self or others. Initial Sepsis Screen: Does the patient meet any 2 criteria? No. Patient's initial sepsis screen is negative. Does the patient have a suspected source of infection? No. Patient's initial sepsis screen is negative. Care prior to arrival: Medication(s) given: ASA, 81 mg, x 4, IV initiated. 20 GA, in the left forearm. 12:52 Method Of Arrival: EMS: [facility] jl7 12:52 Acuity: DOMENICO 2 jl7 Triage Assessment: 12:55 General: Appears in no apparent distress. uncomfortable, Behavior is cooperative, jl7 anxious. Pain: Complains of pain in anterior aspect of left upper chest Pain does not radiate. Pain currently is 10 out of 10 on a pain scale. Quality of pain is described as pressure, Pain began 1 hour ago. Is continuous. Neuro: Level of Consciousness is awake, alert, obeys commands, Oriented to person, place, time, situation. Cardiovascular: Reports chest pain, shortness of breath, Heart tones S1 S2 present Patient's skin is warm and dry. Rhythm is regular. Respiratory: Airway is patent Respiratory effort is even, unlabored, Respiratory pattern is regular, symmetrical, Breath sounds are clear bilaterally. Derm: Skin is pink, warm \T\ dry. Historical: - Allergies: 12:54 NKDA; jl7 - Home Meds: 12:54 lisinopril 40 mg Oral tab 1 tab once daily [Active]; Protonix 20 mg Oral TbEC 1 tab jl7 once daily [Active]; - PMHx: 12:54 Anxiety; COPD; Hypertension; Ulcers; jl7 - PSHx: 12:54 CABG; jl7 - Immunization history:: Adult Immunizations not up to date. - Social history:: Smoking status: Patient uses tobacco products, smokes one pack cigarettes per day. Patient/guardian denies using alcohol, street drugs, The patient lives with family. - Ebola Screening: : No symptoms or risks identified at this time. - Family history:: not pertinent. Screenin:00 Abuse screen: Denies threats or abuse. Denies injuries from another. Nutritional jl7 screening: No deficits noted. Tuberculosis screening: No symptoms or risk factors identified. Fall Risk IV access (20 points). Total Rhoades Fall Scale indicates No Risk (0-24 pts). Assessment: 13:00 General: See triage assessment. jl7 14:00 Reassessment: Patient appears in no apparent distress at this time. No changes from jl7 previously documented assessment. Patient and/or family updated on plan of care and expected duration. Pain level reassessed. Patient is alert, oriented x 3, equal unlabored respirations, skin warm/dry/pink. Patient states feeling better. Patient states symptoms have improved. 15:00 Reassessment: Patient appears in no apparent distress at this time. No changes from rb1 previously documented assessment. Patient and/or family updated on plan of care and expected duration. Pain level reassessed. Patient is alert, oriented x 3, equal unlabored respirations, skin warm/dry/pink. 16:00 Reassessment: Patient appears in no apparent distress at this time. No changes from rb1 previously documented assessment. Patient and/or family updated on plan of care and expected duration. Pain level reassessed. Patient is alert, oriented x 3, equal unlabored respirations, skin warm/dry/pink. 17:00 Reassessment: Patient appears in no apparent distress at this time. No changes from rb1 previously documented assessment. Patient and/or family updated on plan of care and expected duration. Pain level reassessed. Patient is alert, oriented x 3, equal unlabored respirations, skin warm/dry/pink. Vital Signs: 12:54 BP 169 / 104; Pulse 83; Resp 16 S; Pulse Ox 98% on R/A; Pain 10/10; jl7 13:30 BP 152 / 108; Pulse 83; Resp 12; Pulse Ox 97% on R/A; rb1 13:40 Pain 2/10; jl7 14:23 BP 151 / 101; Pulse 82; Resp 15 S; Temp 97.9(O); Pulse Ox 96% on R/A; Pain 5/10; jl7 15:30 BP 150 / 98; Pulse 75; Resp 16 S; Pulse Ox 97% on R/A; rb1 17:01 BP 157 / 101; Pulse 90; Resp 16 S; Pulse Ox 98% on R/A; rb1 ED Course: 12:51 Patient arrived in ED. jl7 12:53 Triage completed. jl7 12:54 Arm band placed on right wrist. jl7 12:55 Alo Peñaloza MD is Attending Physician. ma2 12:57 Junior Becker RN is Primary Nurse. jl7 13:00 Patient has correct armband on for positive identification. Placed in gown. Bed in low jl7 position. Call light in reach. Side rails up X2. sintering plant supervisor on. Pulse ox on. NIBP on. Warm blanket given. 13:00 Maintain EMS IV. Dressing intact. Good blood return noted. Site clean \T\ dry. Gauge \T\ jl 7 site: 20 R FA. Patient maintains SpO2 saturation greater than 95% on room air. 13:12 EKG done, by computer systems technology instructor. reviewed by Alo Peñaloza MD. at1 13:20 Initial lab(s) drawn, by me, sent to lab. jl7 13:57 XRAY Chest (1 view) In Process Unspecified. EDMS 14:11 Notified ED physician of a critical lab result(s). Magnesium 1.2. aa5 14:37 Bruce Gee MD is Hospitalizing Provider. ma2 16:33 Diet: Patient given a regular meal tray. bd 17:00 No provider procedures requiring assistance completed. Patient admitted, IV remains in rb1 place. intact, No redness/swelling at site. Administered Medications: 13:21 Drug: Zofran 4 mg Route: IVP; Site: left forearm; aa5 14:25 Follow up: Response: No adverse reaction jl7 13:23 Drug: morphine 4 mg Route: IVP; Site: left forearm; aa5 13:40 Follow up: Pain 2/10 Adult; Response: No adverse reaction; Pain is decreased jl7 15:58 Drug: Zofran 4 mg Route: IVP; Site: left forearm; aa5 16:30 Follow up: Response: No adverse reaction; Pain is decreased rb1 16:00 Drug: morphine 4 mg Route: IVP; Site: left forearm; aa5 16:30 Follow up: Response: No adverse reaction; Pain is decreased rb1 17:28 CANCELLED (pt up to the floor, floor nurse notified): Magnesium Sulfate 1 grams IVPB ss once over 1 hrs Outcome: 14:37 Decision to Hospitalize by Provider. maBri 17:00 Admitted to Tele accompanied by tech, via wheelchair, room 430, with chart, Report rb1 called to STEVO Smiley 17:00 Condition: stable 17:00 Discharge instructions given to patient, Instructed on the need for admit, Demonstrated understanding of instructions. 17:28 Patient left the ED. ss Signatures: Dispatcher [employer] EDMS Yamilet Vasquez Audri, RN RN aa5 Hoda Simmons RN RN ss Suzie Clark, provider relations representative EKG Tat1 Pratibha Narayanan, STEVO RN rb1 Junior Becker RN RN jl7 Alo Peñaloza MD MD or2
[2019-01-07] MEDS ORDERED: ACETAMINOPHEN 500 MG TAB PO PRN (15:42)
[2019-01-07] MEDS ORDERED: ONDANSETRON 4 MG/2 ML VIAL IV PRN (15:42)
[2019-01-07 17:44] VITALS: BMI 26.6
[2019-01-07] MEDS ORDERED: POTASSIUM CL SA 10 MEQ TAB PO ONE (18:00)
[2019-01-07] MEDS ORDERED: Magnesium Sulfate 2gm IVPB 2 G/50 ML BAG IV ONE (18:00)
[2019-01-07] MEDS: ENOXAPARIN 40 MG/0.4 ML SQ SCH (18:04)
[2019-01-07] MEDS ORDERED: TRAZODONE 50 MG TABLET PO PRN (18:25)
[2019-01-07] MEDS ORDERED: HYDRALAZINE HCL 20 MG/ML VIAL IV PRN (18:25)
[2019-01-07] MEDS ORDERED: MORPHINE 4 MG/ML SYR IV PRN (18:26)
--- NOTE | 2019-01-07 18:35 | EKG ---
Test Date: 2019-01-07 Test Time: 13:07:33 Program Lead: RAJESH MEASUREMENT RESULTS: Intervals: Rate: 88 MO: 176 QRSD: 96 QT: 394 QTc: 476 [place]: P: 38 MO: 176 QRS: 60 T: 16 INTERPRETIVE STATEMENTS: Normal sinus rhythm Normal ECG Compared to ECG 10/03/2018 04:25:53 Prolonged QT interval no longer present Electronically Signed On 01-07-19 18:33:22 GETTERING FILAMENT MACHINE OPERATOR by Adán Aguilera
[2019-01-07] MEDS: NITROGLYCERIN 0.4 MG/TAB SL PRN (19:02)
[2019-01-07] MEDS: MORPHINE 2 MG/ML SYR IV PRN ×2 (20:06→23:18)
[2019-01-07 21:07] LABS: CKMB Creatine Kinase MB 1.1 ng/mL (0.3-3.6); Troponin I < 0.02 ng/mL (0.0-0.045)
[2019-01-08 01:38] LABS: Troponin I < 0.02 ng/mL (0.0-0.045)
[2019-01-08 02:13] LABS: Magnesium 1.6 mg/dL (1.8-2.4)
[2019-01-08] MEDS ORDERED: MAGNESIUM SULFATE 1 gm IVPB 1 GM/100 ML BAG IV ONE (02:16)
[2019-01-08] MEDS: MORPHINE 2 MG/ML SYR IV PRN (03:33)
--- NOTE | 2019-01-08 03:59 | HP ---
Date of Admission: 01/07/2019 Chief Complaint: Chest pain. History Of Present Illness: This patient is a 68-year-old male gentleman, who presents for chest pain. He has a history of hypertension, hyperlipidemia, chest pain, COPD, GERD, and PUD. This patient experienced chest pain in the past. The cardiac cath is unremarkable. This patient experienced chest pain today after lunch. He was resting at the time. The chest pain is located in substernal without radiation. This was associated with exertional shortness of breath. No nausea or vomiting. No fever or chills. The intensity is about 8/10. No elevating or aggravating factors. No syncope. He presented to the emergency room due to persistent chest pain and shortness of breath. In the ED, he was given aspirin 324. His chest pain was relieved by pain medications, morphine 4 mg. chest x- ray and the EKG were unremarkable. He was admitted for observation. Past Medical History: 1. Hypertension. 2. Anxiety. 3. COPD. 4. GERD. 5. PUD. Review of Systems: No headache or lightheaded. No hearing or vision change. No runny nose or sore throat. No dysphagia. No cough. No dysuria or hematuria. No numbness or weakness. For the rest of the review of systems, please see HPI. Social History: He is an active smoker. He smokes 1 pack per day. He is nonalcoholic. Physical Examination: HEENT: Atraumatic. PERRLA. Moist mouth. Neck: Supple. Chest: No respiratory distress. No rales. Decreased breath sounds. Heart: Normal S1, S2. Regular rhythm and rate. No murmurs. Abdomen: Soft, nontender. Bowel sounds are present. Extremities: Lower extremities, no edema, no cyanosis. Neurologic: Patient is oriented x4. Nonfocal. Skin: No rashes. Psychiatric: No anxiety or depression. Laboratory Data: WBC 6.8, hemoglobin 14.4, platelets 207. Sodium 141, potassium 3.5, creatinine 1.14, magnesium 1.2, troponin 0.02. TSH is pending. Assessment And Plan: 1. Chest pain. This patient has a history of hypertension and chest pain. He is an active smoker. Previous cardiac cath is unremarkable. He received 1 dose of aspirin in the ED. We will follow up with trop series. We will give nitro as needed. He just had an echo in this September, which is unremarkable. We will consult hardwood floor layer. 2. Hypertension. His blood pressure at a higher side. We will give IV hydralazine as needed. We will resume home lisinopril. 3. Gastroesophageal reflux disease. We will resume home Protonix. This patient will be put on the telemonitoring. He probably can be discharged tomorrow if cleared by hardwood floor layer. QT/DEMARCUS Voice ID: [id number] MTDD
[2019-01-08 04:18] LABS: Absolute Lymphocytes (CBC) 2.2 K/uL (0.7-4.9); Basophils % 1.2 % (0-1.3); Lymphocytes % 29.2 % (15.3-44.8); MPV 8.5 fL (7.6-11.3); RBC Red Blood Cell Count 3.93 M/uL (4.33-5.43)
[2019-01-08 04:42] LABS: ALT/SGPT 48 U/L (12-78); AST/SGOT 35 U/L (15-37); Albumin 3.2 g/dL (3.4-5.0); Alkaline Phosphatase 53 U/L (45-117); BUN Blood Urea Nitrogen 9 mg/dL (7-18); Bicarbonate 27 mmol/L (21-32); Bilirubin Total 0.3 mg/dL (0.2-1.0); CKMB Creatine Kinase MB < 1.0 ng/mL (0.3-3.6); Glucose Level 99 mg/dL (74-106); HDL Cholesterol 21 mg/dL (40-60); LDL Cholesterol, Calculated ND (<130); Potassium 3.7 mmol/L (3.5-5.1); Protein, Total 5.7 g/dL (6.4-8.2); Sodium Level 140 mmol/L (136-145)
[2019-01-08 05:04] LABS: LDL, Direct 94 mg/dL (100-129)
[2019-01-08] MEDS ORDERED: POTASSIUM CL SA 10 MEQ TAB PO ONE (05:57)
[2019-01-08 07:04] LABS: Urine Appearance CLEAR; Urine Bilirubin NEGATIVE (NEG); Urine Blood NEGATIVE (NEG); Urine Color YELLOW; Urine Glucose NEGATIVE (NEG); Urine Protein NEGATIVE (NEG); Urine Urobilinogen 0.2 mg/dL (0.2-1.0)
[2019-01-08 07:05] LABS: Urine Microscopic Reflex NO UMIC
[2019-01-08] MEDS: NITROGLYCERIN 0.4 MG/TAB SL PRN (08:06)
[2019-01-08] MEDS: ENOXAPARIN 40 MG/0.4 ML SQ SCH (08:07)
[2019-01-08 08:29] LABS: CKMB Creatine Kinase MB < 1.0 ng/mL (0.3-3.6); Magnesium 1.9 mg/dL (1.8-2.4); Troponin I < 0.02 ng/mL (0.0-0.045)
[2019-01-08] MEDS ORDERED: lisinopriL 10 MG TAB PO SCH (09:00)
[2019-01-08] MEDS ORDERED: ASPIRIN EC 81 MG TAB PO SCH (09:00)
[2019-01-08] MEDS ORDERED: PANTOPRAZOLE 40MG TABLET PO SCH (09:00)
[2019-01-08 09:12] VITALS: O2SAT 94
--- NOTE | 2019-01-08 12:32 | CON ---
Admitted on 01/07/[address] Abreu. Reason For Consultation: Chest pain. History Of Present Illness: Mr. Farnsworth is a 68-year-old male. He has a history of hypertension, as bestosis. He claims that he had mesothelioma, has history of emphysema, gastroesophageal reflux dise ase, peptic ulcer disease, and anxiety. In 2016, he had a normal heart catheterization. In 2019, he had a normal echo. Today, his EKG is normal. His troponin is negative. His BNP is negative. His magnesium is 1.2, came in with sharp stabbing chest pain. Has been going on for 2 to 3 days, [facility] ed when he takes a deep breath mostly on the left upper chest. No nausea, vomiting, diaphoresis, PND , orthopnea, pedal edema, palpitation, or syncope. Past Medical History: As stated above. Allergies: NONE. Review of Systems: Negative. Social History: Positive for tobacco. Medications: At home, include aspirin, Symbicort, lisinopril, and Protonix. Physical Examination: Vital Signs: Stable. Afebrile. HEENT: Negative. Neck: Supple. No bruit. Chest: Clear to auscultation and percussion. Cardiac: Exam revealed a regular rhythm and rate. No murmurs, gallops, or rubs. Abdomen: Benign. Extremities: Revealed no clubbing, cyanosis, or edema. Vascular: His pulses were present distally bilaterally. Neurologic: He was nonfocal. Skin: Dry and intact. Impression And Plan: 1.Atypical chest pain. Normal catheterization 2 years ago. Normal echo 2 months ago. I think it i s consistent with pleurisy. 2.Emphysema, asbestosis and he claims he has mesothelioma. 3.Hypomagnesemia that needs to be supplemented. He should take magnesium as an outpatient. 4.Chronic obstructive pulmonary disease, well controlled. 5.Gastroesophageal reflux disease, well controlled. 6.Hypertension that is well controlled. Mr. Farnsworth does not need any further cardiac workup. I think he needs to go home on his present reg imen. Maybe take some nonsteroidal anti-inflammatory drugs for his chest pain as they occur. I will be happy to see him as an outpatient. If his symptoms persist, we will consider doing an outpatient stress test. STERLING/DEMARCUS Voice ID: [id number] Report ID: [id number]
[2019-01-08 12:40] VITALS: BP 138/76; TEMP 97
--- NOTE | 2019-01-09 00:54 | DS ---
Date of Discharge: 01/08/2019 Hospital Course: This patient is a 68-year-old gentleman who presented for chest pain. He has a history of hypertension, hyperlipidemia, COPD, GERD, and PUD. He experienced chest pain in the past and the workup was unremarkable. This patient experienced chest pain on the day of admission. He then proceeded to the emergency room. In the ED, troponin was negative. EKG and chest x-ray unremarkable. CBC unremarkable. Magnesium 1.2, which was replaced. Magnesium is 1.9 now. Lipid panel demonstrated triglyceride of 849, total cholesterol 211 , and HDL 21. His chest pain is getting better. The patient is eager to go home. He received aspirin in the hospital. Information Clerk was consulted. Cardiology recommended discharge patient and to follow up as outpatient for possible stress test. Extensive education regarding diet and chest pain was given. Physical Examination On Discharge: Vital Signs: Temperature 97.2, heart rate 71, blood pressure 141/79, oxygen saturation 95% on room air. HEENT: Atraumatic. PERRLA. EOMI. Neck: Supple. No JVD. Chest: Clear to auscultation. No labored breathing. Heart: Normal S1, S2. Regular rhythm and rate. No murmur. Abdomen: Soft, nontender. Bowel sounds present. Extremities: No edema, no cyanosis. Neuro: Patient awake and alert, oriented x4. His mood is stable. Skin: No rashes. Laboratory Data: On discharge, WBC 7.4, hemoglobin 14, platelet 188. Sodium 140, potassium 3.7, creatinine 1.11. Liver enzyme within normal range. Total triglycerides 849, total cholesterol 211. Discharge Diagnoses: 1. Chest pain. 2. Hypertension. 3. Hyperlipidemia. 4. Gastroesophageal reflux disease. 5. Chronic obstructive pulmonary disease. Discharge Medications: 1. Nitroglycerin 0.4 mg sublingual as needed for chest pain. 2. Atorvastatin 20 mg daily. 3. Vascepa 2 g b.i.d. For other home medications, please see medication list. Discharge Instructions: 1. Follow Cardiology in 1 or 2 weeks. 2. Follow up PCP in 1 week. 3. Please call emergency room if having chest pain or shortness of breath. I spent about 30 minutes for discharge including education, physical examination , and discharge summary. QT/MODL Voice ID: [id number] Report ID: [id number] MTDD
== END 2019-01-08 13:30 | disposition home or self-care (01) ==
LOC: ER 12:49 → ERHOLD 15:42 → 4TH 17:04
PROVIDERS: ADMIT Internal Medicine; ATTEND Internal Medicine
DX: R07.9 Chest pain, unspecified (principal); I10 Essential (primary) hypertension; E78.5 Hyperlipidemia, unspecified; J44.9 Chronic obstructive pulmonary disease, unspecified; K21.9 Gastro-esophageal reflux disease without esophagitis; F17.210 Nicotine dependence, cigarettes, uncomplicated
CPT/HCPCS: 36415; 71045; 80048; 80053; 80061; 80076; 81003; 82553; 83735; 83880; 84100; 84443; 84484; 85025; 85610; 93005; 94760; 96374; 96375; 99285; G0378; J1650; J2270; J2405; J3475

== ENCOUNTER 2019-01-19 09:09 | Inpatient (IN) | payer OTHER ==
[2019-01-19] MEDS ORDERED: NA CHLORIDE 0.9% 1,000 ML ONE ×2 (09:26→11:38)
[2019-01-19] MEDS ORDERED: NA CHLORIDE 0.9% 1,000 ML with FOLIC ACID 1 MG, THIAMINE HCL 100 MG, MULTIVITAMINS INJ ... IV ONE ×4 (09:30)
[2019-01-19 09:59] LABS: Absolute Lymphocytes (CBC) 1.4 K/uL (0.7-4.9); Basophils % 0.2 % (0-1.3); Hematocrit 42.5 % (39.6-49.0); Lymphocytes % 6.3 % (15.3-44.8); MPV 9.1 fL (7.6-11.3); RBC Red Blood Cell Count 4.01 M/uL (4.33-5.43)
--- NOTE | 2019-01-19 10:20 | RAD REPORT ---
EXAM DESCRIPTION: CT - Head C Spine Cap Wo Con - 01/19/2019 9:54 am CLINICAL HISTORY: Fall, head, neck, chest and abdomen pain COMPARISON: None. TECHNIQUE: Axial [address] head images were obtained. Axial [address] cervical spine images were obtain ed with sagittal and coronal reconstruction images reviewed. Axial 5 mm images of the chest, abdomen and pelvis were obtained. All CT scans are performed using dose optimization technique as appropriate and may include automated exposure control or mA/KV adjustment according to patient size. FINDINGS: No intracranial hemorrhage is present. An approximately 3 centimeter wedge-shaped area of decreased attenuation is present in the posterior left parietal lobe. Acute to subacute CVA suspected . This extends from cortex to the deep periventricular white matter. No other area of suspected acute infarction. Patient has a moderate underlying atrophy and chronic ischemic pattern. No midline shift or abnormal fluid collection. Mastoid air cells are clear. Paranasal sinuses clear of acute finding. No skull fracture. Ventricles are in proportion to the volume loss. Cervical bodies are normal in height and alignment. No fracture or acute bone finding.Mild C4-5 disc space narrowing. There is right bony foraminal encroachment at this level.No prevertebral soft tissue thickening or paraspinal mass.Central canal detail is inherently limited on CT imaging. CT chest shows no pneumothorax, pulmonary contusion or pleural fluid collection. Calcified pleural pl aques are present. No soft tissue pleural based mass identified. No mediastinal hematoma and the aort a and pulmonary arteries are unremarkable. No chest will mass or abnormal axillary finding. No displa adri rib fractures. Patient has several old rib fractures present. Advanced degenerative change seen i n the thoracic vertebrae. No acute compression fractures seen. There is concavity of the L2 endplate. Age uncertain. Large hemangioma is present in L3. Fatty infiltration is seen throughout the liver parenchyma. No focal liver lesions seen. Spleen and p ancreas show no suspicious findings. No biliary tree dilatation. Gallbladder lumen is hyperdense. Thi s could indicate thickened bile or sludge. Follow-up can be obtained as warranted. No bowel injury or significant finding. No free air, free fluid or abnormal stranding. No mass or bu lky lymphadenopathy. Bilateral fat filled inguinal hernias are present. No urinary bladder abnormali ty. Patient has bilateral comminuted proximal humerus fractures. Left humeral head articular surface is p osteriorly directed. There is impaction along the posterior margin of the bony glenoid. Right humerus fracture is also impacted along the posterior margin of the glenoid. The articular surfaces partiall y dislocated and posteriorly oriented. No scapula or clavicle fracture identifiable. IMPRESSION: Approximately 3 centimeter area of acute to subacute nonhemorrhagic infarction in the po sterior left parietal lobe. No intracranial hemorrhage. Patient has atrophy and chronic ischemic change. Cervical spine degenerative changes are present. No acute cervical spine finding seen. No acute findings of the lung parenchyma, mediastinum, hilar regions or rib cage. Patient has comminuted, impacted and partially dislocated bilateral proximal humerus fractures. Patient has fatty infiltration of the liver. No acute traumatic injury in the abdomen or pelvis.
--- NOTE | 2019-01-19 10:46 | RAD REPORT ---
EXAM DESCRIPTION: RAD - Pelvis - 01/19/2019 10:26 am CLINICAL HISTORY: TRAUMA COMPARISON: No comparisons FINDINGS: No acute fracture is seen. 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 IMPRESSION: No acute abnormality detected.
--- NOTE | 2019-01-19 10:47 | RAD REPORT ---
EXAM DESCRIPTION: RAD - Shoulder Right 2 View - 01/19/2019 10:26 am CLINICAL HISTORY: PAIN COMPARISON: Chest Single View dated 01/07/2019; Chest Single View dated 10/03/2018; Chest Single View dated 05/31/2018 FINDINGS: Large defect is seen in the medial aspect of the right humeral head, likely related to a f racture. No evidence of a dislocation seen.
--- NOTE | 2019-01-19 10:48 | RAD REPORT ---
EXAM DESCRIPTION: RAD - Chest Single View - 01/19/2019 10:26 am CLINICAL HISTORY: TRAUMA Chest pain. COMPARISON: Chest Single View dated 01/07/2019; Chest Single View dated 10/03/2018; Chest Single View dated 05/31/2018; Chest Single View dated 05/29/2018 FINDINGS: Portable technique limits examination quality. The lungs are grossly clear. The heart is upper limit normal in size with a tortuous thoracic aorta. Calcified pleural plaquing is present bilaterally compatible with prior asbestos exposure.
--- NOTE | 2019-01-19 10:50 | RAD REPORT ---
EXAM DESCRIPTION: RAD - Shoulder Left 2 View - 01/19/2019 10:26 am CLINICAL HISTORY: PAIN COMPARISON: No comparisons FINDINGS: Moderately displaced fracture the proximal left humerus is noted. No dislocation evident.
[2019-01-19 10:57] LABS: Protime INR 1.05
[2019-01-19 11:22] LABS: ALT/SGPT 79 U/L (12-78); AST/SGOT 107 U/L (15-37); Albumin 3.4 g/dL (3.4-5.0); Alkaline Phosphatase 63 U/L (45-117); BUN Blood Urea Nitrogen 116 mg/dL (7-18); Bicarbonate 20 mmol/L (21-32); Bilirubin Direct 0.3 mg/dL (0-0.2); Bilirubin Total 0.9 mg/dL (0.2-1.0); Glucose Level 108 mg/dL (74-106); Potassium 4.5 mmol/L (3.5-5.1); Protein, Total 7.6 g/dL (6.4-8.2); Sodium Level 149 mmol/L (136-145)
[2019-01-19 11:23] LABS: Creatine Phosphokinase 2289 U/L (39-308)
[2019-01-19] MEDS ORDERED: ASPIRIN 600 MG/SUPP PR ONE (11:45)
--- NOTE | 2019-01-19 12:24 | ER ---
Nurse's Notes [facility] Name: Mega Farnsworth Age: 68 yrs Sex: Male : 1950 Arrival Date: 01/19/2019 Time: 09:09 Bed 14 Private MD: Diagnosis: Cerebral infarction;Altered mental status, unspecified;Other fracture of upper end of humerus-LISA Presentation: 01/19 09:10 Presenting complaint: EMS states: pts sister went to [facility] found him laying in tw2 his own feces, pt states he was down for an hour, sister believes it was longer, pt c/o nauseousness and being hungover, pt admits to drug and alcohol abuse. vs stable. Transition of care: patient was not received from another setting of care. Onset of symptoms was January 19, 2019. Risk Assessment: Do you want to hurt yourself or someone else? Patient reports no desire to harm self or others. Initial Sepsis Screen: Does the patient meet any 2 criteria? No. Patient's initial sepsis screen is negative. Does the patient have a suspected source of infection? No. Patient's initial sepsis screen is negative. Care prior to arrival: None. 09:10 Method Of Arrival: EMS: [facility] tw2 09:10 Acuity: DOMENICO 3 tw2 Triage Assessment: 09:12 General: Appears unkempt, Behavior is cooperative, Smells of feces and urine. Pain: tw2 Complains of pain in right arm and left arm. GI: Reports nausea. Historical: - Allergies: 09:14 NKDA; tw2 - Home Meds: 09:14 lisinopril 40 mg Oral tab 1 tab once daily [Active]; Protonix 20 mg Oral TbEC 1 tab tw2 once daily [Active]; - PMHx: 09:14 Anxiety; COPD; Hypertension; Ulcers; Drug and Alcohol abuse; tw2 - PSHx: 09:14 CABG; tw2 - Immunization history:: Adult Immunizations unknown. - Social history:: Smoking status: Patient uses tobacco products, Patient uses street drugs, Patient uses alcohol. - Ebola Screening: : Patient denies travel to an Ebola-affected area in the 21 days before illness onset. Screenin:16 Abuse screen: Denies threats or abuse. Nutritional screening: No deficits noted. tw2 Tuberculosis screening: No symptoms or risk factors identified. Fall Risk Secondary diagnosis (15 points) impaired mobility. 11:40 Patient has been NPO before screening. The patient is alert, able to follow commands. tw2 The patient does not exhibit slurred or garbled speech The patient is not exhibiting difficulty speaking. The patient is exhibiting difficulty understanding words. The patient is able to swallow own secretions with no drooling or need for suction. The patient did not tolerate one teaspoon of water. Drooling, immediate coughing, gurgling, or clearing of the throat was noted. Bedside swallow screening discontinued. Patient kept NPO until cleared by Speech Therapy or Physician. The patient failed the bedside swallow screening. The patient will be kept NPO until cleared by Speech Therapy or Physician. Provider notified of bedside swallow screening results: Palmer ALEJANDRO. Assessment: 09:17 General: Appears unkempt, Behavior is calm, cooperative. Neuro: Level of Consciousness tw2 is awake, obeys commands, Oriented to person. Cardiovascular: Heart tones S1 S2 Patient's skin is warm and dry. Respiratory: Airway is patent Respiratory effort is even, unlabored, Respiratory pattern is regular, symmetrical, Breath sounds are clear bilaterally. GI: Abdomen is flat, Bowel sounds present X 4 quads. Reports nausea, vomiting. : No signs and/or symptoms were reported regarding the genitourinary system. EENT: No signs and/or symptoms were reported regarding the EENT system. Derm: No signs and/or symptoms reported regarding the dermatologic system. Derm: Bruising that is bright red, dark purple, green, yellow, on right arm and left arm. 09:17 Musculoskeletal: Circulation, motion, and sensation intact. tw2 10:55 Reassessment: No changes from previously documented assessment. Patient and/or family tw2 updated on plan of care and expected duration. Pain level reassessed. 11:40 Patient has been NPO before screening. The patient is alert, and able to follow tw2 commands. The patient does not exhibit slurred or garbled speech. The patient is exhibiting difficulty speaking. The patient does not exhibit difficulty understanding words. The patient is able to swallow own secretions with no drooling or need for suction. The patient did not tolerate one teaspoon of water. Drooling, immediate coughing, gurgling, or clearing of the throat was noted. Bedside swallow screening discontinued. Patient kept NPO until cleared by Speech Therapy or Physician. The patient failed the bedside swallow screening. The patient will be kept NPO until cleared by Speech Therapy or Physician. Provider notified of bedside swallow screening results: Palmer ALEJANDRO. 11:40 stopped at tsp. tw2 11:55 Reassessment: No changes from previously documented assessment. Patient and/or family tw2 updated on plan of care and expected duration. Pain level reassessed. 12:55 Reassessment: No changes from previously documented assessment. Patient and/or family tw2 updated on plan of care and expected duration. Pain level reassessed. 13:21 Reassessment: No changes from previously documented assessment. Patient and/or family tw2 updated on plan of care and expected duration. Pain level reassessed. 14:30 Reassessment: No changes from previously documented assessment. Patient and/or family tw2 updated on plan of care and expected duration. Pain level reassessed. Vital Signs: 09:15 BP 140 / 120; Pulse 87; Resp 17; Temp 97.9(O); Pulse Ox 97% on R/A; Weight 58.97 kg tw2 (R); Pain 0/10; 09:17 BP 103 / 67; Pulse 98; Resp 17; Pulse Ox 97% on R/A; tw2 10:55 BP 132 / 86; Pulse 100; Resp 17; Pulse Ox 99% on R/A; tw2 12:03 BP 124 / 75; Pulse 100; Resp 17; Pulse Ox 96% on R/A; tw2 13:21 BP 118 / 57; Pulse 98; Resp 20; Pulse Ox 97% on R/A; tw2 14:30 BP 98 / 67; Pulse 103; Resp 20; Pulse Ox 96% on R/A; tw2 15:30 BP 103 / 68; Pulse 96; Resp 17; Pulse Ox 95% on R/A; tw2 NIH Stroke Scale Scores: 11:59 NIHSS Score: 4 la1 15:31 NIHSS Score: 6 tw2 ED Course: 09:09 Patient arrived in ED. tw2 09:10 Palmer Corbett FNP-C is [facility]. la1 09:10 Jaime Krause MD is Attending Physician. la1 09:10 Bed in low position. Call light in reach. Side rails up X2. car rental service attendant on. Pulse tw2 ox on. NIBP on. Warm blanket given. 09:12 Triage completed. tw2 09:12 Arm band placed on. tw2 09:19 Svetlana Sierra, RN is Primary Nurse. tw2 09:38 Missed attempt(s): 22 gauge in right wrist. Bleeding controlled, band aid applied, tw2 catheter tip intact. Inserted saline lock: 22 gauge in left wrist, using aseptic technique. ,using aseptic technique. per Temidebeader. Inserted saline lock: 22 gauge in right forearm, using aseptic technique. ,using aseptic technique. per Alexander Tech. 09:57 Head C Spine Cap Wo Con In Process Unspecified. EDMS 10:25 X-ray completed. Patient tolerated procedure well. Patient moved back from radiology. mh1 10:27 EKG done, by analytical laboratory technician. reviewed by Palmer ALEJANDRO. at1 10:29 Shoulder Right (2 View) XRAY In Process Unspecified. EDMS 10:29 Shoulder Left (2 View) XRAY In Process Unspecified. EDMS 10:29 Chest Single View XRAY In Process Unspecified. EDMS 10:29 Pelvis XRAY In Process Unspecified. EDMS 12:19 Munira Nino MD is Hospitalizing Provider. la1 16:18 No provider procedures requiring assistance completed. Patient admitted, IV remains in tw2 place. Administered Medications: 09:38 Drug: NS 0.9% 1000 ml Route: IV; Rate: 1 bolus; Site: left wrist; tw2 11:30 Follow up: Response: No adverse reaction; IV Status: Completed infusion; IV Intake: tw2 1000ml 09:38 Drug: Banana Bag - (NS 0.9% 1000 ml, foLIC Acid 1 mg, Thiamine 100 mg, Multivitamin 1 tw2 amp) Route: IV; Rate: 200 calculated rate; Site: left wrist; 16:13 Follow up: Response: No adverse reaction; IV Status: Completed infusion; IV Intake: tw2 1000ml 11:40 Drug: NS 0.9% 1000 ml Route: IV; Rate: 1000 ml; Site: right wrist; tw2 13:00 Follow up: IV Status: Completed infusion; IV Intake: 1000ml tw2 11:41 CANCELLED (Duplicate Order): Aspirin 325 mg PO once tw2 12:03 Drug: Aspirin Suppository 300 mg Route: NH; tw2 12:43 Follow up: Response: No adverse reaction tw2 Intake: 11:30 IV: 1000ml; Total: 1000ml. tw2 13:00 IV: 1000ml; Total: 2000ml. tw2 16:13 IV: 1000ml; Total: 3000ml. tw2 Outcome: 12:23 Decision to Hospitalize by Provider. la1 16:18 Admitted to Med/surg accompanied by tech, via stretcher, room 425, with chart, Report tw2 called to STEVO Carvalho 16:18 Condition: stable 16:18 Instructed on the need for admit. 16:31 Patient left the ED. tw2 NIH Stroke Scale - NIH Stroke Score Date: 01/19/2019 Time: 11:59 Total Score = 4 1a. Level of Consciousness (LOC) - 0(Alert) 1b. Level of Consciousness (LOC) (Year \T\ Age) - 2(Neither) 1c. LOC Commands (Open \T\ Closes Eyes/Fur Mixer Operator) - 0(Both) 2. Best Gaze (Lateral Gaze Paresis) - 0(Normal) 3. Visual Field Loss - 0(No visual loss) 4. Facial Palsy - 0(Normal) 5a. Left Arm: Motor (10-second hold) - 9(Amputation, joint fusion) - Notes: fractured humerus 5b. Right Arm: Motor (10-second hold) - 9(Amputation, joint fusion) - Notes: fractured humerus 6a. Left Leg: Motor (5-second hold - always test supine) - 0(No drift) 6b. Right Leg: Motor (5-second hold - always test supine) - 0(No drift) 7. Limb Ataxia (finger/nose \T\ heel/landeros - test with eyes open) - 0(Absent) 8. Sensory Loss (pinprick arms/legs/face) - 0(Normal) 9. Best Language: Aphasia (description/naming/reading) - 1(Mild to moderate aphasia) 10. Dysarthria (speech clarity - read or repeat words) - 1(Mild to Moderate) 11. Extinction and Inattention (visual/tactile/auditory/spatial/personal) - 0(No abnormality) Initials: la1 NIH Stroke Scale - NIH Stroke Score Date: 01/19/2019 Time: 15:31 Total Score = 6 1a. Level of Consciousness (LOC) - 0(Alert) 1b. Level of Consciousness (LOC) (Year \T\ Age) - 2(Neither) 1c. LOC Commands (Open \T\ Closes Eyes/Fur Mixer Operator) - 0(Both) 2. Best Gaze (Lateral Gaze Paresis) - 0(Normal) 3. Visual Field Loss - 0(No visual loss) 4. Facial Palsy - 0(Normal) 5a. Left Arm: Motor (10-second hold) - 1(Drift) 5b. Right Arm: Motor (10-second hold) - 1(Drift) 6a. Left Leg: Motor (5-second hold - always test supine) - 0(No drift) 6b. Right Leg: Motor (5-second hold - always test supine) - 0(No drift) 7. Limb Ataxia (finger/nose \T\ heel/landeros - test with eyes open) - 0(Absent) 8. Sensory Loss (pinprick arms/legs/face) - 0(Normal) 9. Best Language: Aphasia (description/naming/reading) - 1(Mild to moderate aphasia) 10. Dysarthria (speech clarity - read or repeat words) - 1(Mild to Moderate) 11. Extinction and Inattention (visual/tactile/auditory/spatial/personal) - 0(No abnormality) Initials: tw2 Signatures: Dispatcher [employer] EDMS Amy Cortes mh1 Suzie Clark, manufacturing process technician EKG Tat1 Palmer Corbett, NEELAM-C FINANCIAL SALES REPRESENTATIVE-Cla1 Svetlana Sierra RN RN tw2 Corrections: (The following items were deleted from the chart) 10:58 09:17 Musculoskeletal: Range of motion: intact in all extremities, tw2 tw2 15:31 11:59 NIHSS Score: 7 tw2 tw2
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
[2019-01-19 12:47] LABS: Anisocytosis 1+; Blood Morphology Comment NOTED (NOT SEEN); Macrocytosis 1+; Platelet Estimate ADEQ; Platelets, Giant FEW; Urine White Blood Cell Casts OK
[2019-01-19] MEDS ORDERED: NA CHLORIDE 0.9% 1,000 ML IV SCH (13:00)
[2019-01-19] MEDS ORDERED: SODIUM CHLORIDE 0.9% 10ML INJ IV PRN ×2 (16:16→17:10)
[2019-01-19] MEDS ORDERED: ONDANSETRON 4 MG/2 ML VIAL IV PRN (16:16)
--- NOTE | 2019-01-19 16:46 | EKG ---
Test Date: 2019-01-19 Test Time: 10:25:52 Local Announcer: RAJESH MEASUREMENT RESULTS: Intervals: Rate: 95 KS: 142 QRSD: 96 QT: 422 QTc: 530 [place]: P: 58 KS: 142 QRS: 71 T: 44 INTERPRETIVE STATEMENTS: Normal sinus rhythm Prolonged QT Abnormal ECG Compared to ECG 01/07/2019 13:07:33 Prolonged QT interval now present Electronically Signed On 01-19-19 16:45:14 SPINAL SURGEON by Jadon Chamorro
[2019-01-19 16:48] VITALS: BMI 25.1
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
[2019-01-19] MEDS ORDERED: ALBUTEROL 2.5 MG/3 ML NEB SOL NEB PRN (17:57)
[2019-01-19] MEDS ORDERED: IPRATROPIUM BROM 0.5MG/2.5ML NEB PRN (17:57)
[2019-01-19] MEDS: FOLIC ACID 1 MG, MULTIVITAMINS INJ 10 ML, THIAMINE HCL 100 MG in NA CHLORIDE 0.9% 1,000 ML IV SCH (18:28)
--- NOTE | 2019-01-19 18:57 | RAD REPORT ---
EXAM DESCRIPTION: MRI - Brain Wo Cont - 01/19/2019 6:50 pm CLINICAL HISTORY: , Headache, drowsiness, possible CVA COMPARISON: MRA Head Wo Cont dated 01/19/2019; Chest Single View dated 01/19/2019; Head C Spine Cap Wo Con dated 01/19/2019 TECHNIQUE: Multi-sequence, multiplanar MR imaging of the brain was performed without contrast. FINDINGS: [place] intra-axial lobulated lesion is present in the left parietal lobe. The lesion measu res 3.5 x 2.7 x 2.0 cm (AP x T x CC). The lesion is largely hyperintense on T1 weighted sequence, hyp erintense on T2 weighted sequence and demonstrates a thin hemosiderin ring.The features of this are m ost compatible with late subacute intercerebral hematoma (1-3 weeks in age range). DWI is negative fo r acute CVA. Mild brain atrophy is seen with moderate periventricular and deep white matter chronic microvascular ischemic changes. Small mucous retention cysts versus polyps are present in both maxillary antra. Right mastoid effusio n is seen. IMPRESSION: Late subacute time frame left parietal lobe intercerebral hematoma is identified. An acu te CVA is not identified.
[2019-01-19] MEDS ORDERED: INFLUENZA VACCINE (for 3y+) 0.5 ML DOSE IMVAC ONE (19:00)
[2019-01-19] MEDS ORDERED: PNEUMOCOCCAL VACCINE 0.5 ML IMVAC ONE (19:00)
--- NOTE | 2019-01-19 19:00 | RAD REPORT ---
EXAM DESCRIPTION: MRI - MRA Head Wo Cont - 01/19/2019 6:50 pm CLINICAL HISTORY: stroke CVA COMPARISON: HEAD BRAIN W O CONTRAST dated 01/12/2013; Head C Spine Cap Wo Con dated 01/19/2019; [place] s[place] Left 2 View dated 01/19/2019; Shoulder Right 2 View dated 01/19/2019 FINDINGS: 3D noncontrast [id number] MR angiography of the [place] was performed. No aneurysm, flow-limiting stenosis or vascular malformation is seen. Forward flow seen in codominant vertebral arteries. The visualized dural venous sinuses appear patent. Please refer to dedicated MR brain for details reg arding left parietal intercerebral hematoma. IMPRESSION: No significant flow abnormality of the [place] is identified.
--- NOTE | 2019-01-19 19:48 | RAD REPORT ---
EXAM DESCRIPTION: US - CP - 01/19/2019 7:34 pm CLINICAL HISTORY: stroke Headache, drowsiness COMPARISON: No comparisons TECHNIQUE: Real-time sonographic evaluation of both carotid systems was performed. Doppler interroga tion was performed with waveform tracing bilaterally. FINDINGS: Normal high resistance waveforms are noted in both external carotid arteries. The common c arotid arteries and internal carotid arteries show normal low resistance waveforms. Moderate mixed plaque is seen in both proximal internal carotid arteries. Peak systolic and end diast olic velocity values and the ICA/CCA ratios are in the non-hemodynamically significant range. Antegrade flow seen in both vertebral arteries. IMPRESSION: Moderate mixed plaque is seen in both proximal internal carotid arteries without a hemod ynamically significant stenosis identified.
[2019-01-19] MEDS: PANTOPRAZOLE 40 MG INJ IVP SCH (20:37)
[2019-01-20 04:30] LABS: Absolute Lymphocytes (CBC) 1.5 K/uL (0.7-4.9); Basophils % 0.1 % (0-1.3); Hematocrit 29.6 % (39.6-49.0); Lymphocytes % 10.4 % (15.3-44.8); MPV 8.3 fL (7.6-11.3); RBC Red Blood Cell Count 2.82 M/uL (4.33-5.43)
[2019-01-20] MEDS: MORPHINE 2 MG/ML SYR IV PRN ×2 (04:53→10:18)
[2019-01-20 05:04] LABS: Albumin 2.7 g/dL (3.4-5.0); Bilirubin Total 0.9 mg/dL (0.2-1.0); Protein, Total 6.1 g/dL (6.4-8.2)
[2019-01-20] MEDS: D5W 1,000 ML IV SCH ×2 (08:39→22:01)
[2019-01-20] MEDS: CEFTRIAXONE/SWI 1gm 1 GM/10 ML SYR IVP SCH (08:40)
[2019-01-20] MEDS: PANTOPRAZOLE 40 MG INJ IVP SCH ×2 (08:40→21:58)
[2019-01-20] MEDS ORDERED: PANTOPRAZOLE 40 MG INJ IVP SCH (09:00)
[2019-01-20] MEDS: FOLIC ACID 1 MG, MULTIVITAMINS INJ 10 ML, THIAMINE HCL 100 MG in NA CHLORIDE 0.9% 1,000 ML IV SCH (09:00)
[2019-01-20] MEDS ORDERED: ASPIRIN EC 81 MG TAB PO SCH (09:00)
[2019-01-20 14:16] LABS: Urine Appearance CLEAR; Urine Bilirubin NEGATIVE (NEG); Urine Blood 1+ (NEG); Urine Color YELLOW; Urine Glucose NEGATIVE (NEG); Urine Protein TRACE (NEG); Urine pH 5.5 (5.0-7.0)
[2019-01-20 14:23] LABS: Barbiturates NEGATIVE (NEGATIVE); Benzodiazepines NEGATIVE (NEGATIVE); Cocaine NEGATIVE (NEGATIVE); METHAMPHETAM NEGATIVE (NEGATIVE); Methadone NEGATIVE (NEGATIVE); Opiates NEGATIVE (NEGATIVE); Phencyclidine NEGATIVE (NEGATIVE); THC Cannibis NEGATIVE (NEGATIVE)
[2019-01-20 14:24] LABS: Urine Microscopic Reflex ORDER UMIC
--- NOTE | 2019-01-20 14:47 | P.PN ---
Subjective Date of Service: 01/20/19 Primary Care Provider: Unknowm Chief Complaint: AMS Patient seen and examined at bedside with RN. Chart reviewed. Case discussed with neurology at this time. Patient continues to have altered mental status. Overnight had no acute events. Review of Systems 10-point ROS is otherwise unremarkable Physical Examination - Vital Signs Temperature: 98.5 F Blood Pressure: 102/55 Pulse: 107 Respirations: 18 Pulse Ox (%): 91 - Physical Exam General: Mild distress, Confused HEENT: Atraumatic, PERRLA, EOMI Neck: Supple, JVD not distended Respiratory: Normal air movement, Crackles/rales, Expiratory wheezes, Inspiratory wheezes Cardiovascular: Regular rate/rhythm, Normal S1 S2 Gastrointestinal: Normal bowel sounds, No tenderness Musculoskeletal: No tenderness Integumentary: No rashes Neurological: Abnormal speech, Abnormal strength Lymphatics: No axilla or inguinal lymphadenopathy - Studies Laboratory Data (last 24 hrs) 01/19/19 10:39: LDL Cholesterol Direct 163 H Medications List Reviewed: Yes Assessment And Plan - Current Problems (Diagnosis) (1) Encephalopathy Current Visit: Yes Status: Acute Plan: Encephalopathy most likely secondary to hematoma versus electrolyte abnormality versus infection -currently alert and oriented times 0 -initial head CT consistent with subacute parietal lobe CVA however brain MRI consistent with parietal lobe subacute hematoma -neurology consulted. Appreciated recommendations -Aspirin and Plavix at this time along with Lovenox given the subacute hematoma -will repeat head CT in 24 hr to evaluate for evolving hematoma -extensive discussion with family regarding further plan of care family continues to seek aggressive treatment at this time. Patient continues to be full code. -case management has been consulted for possible placement to L tach (2) Rhabdomyolysis Current Visit: Yes Status: Acute Plan: Rhabdomyolysis most likely secondary to prolonged immobility -CK elevated initially, repeated CK trending down -On IV fluids andwill monitor electrolyte especially potassium along with BUN and creatinine Qualifiers: Rhabdomyolysis type: non-traumatic Qualified Code(s): M62.82 - Rhabdomyolysis (3) Alcohol abuse Current Visit: Yes Status: Acute Plan: Patient with history of alcohol abuse and intoxicated on admission -patient currently on banana bag and Ativan 2 mg p.r.n. for alcohol withdrawal (4) Electrolyte abnormality Current Visit: Yes Status: Acute Plan: Patient with elevated sodium and chloride -will go ahead and stops normal saline at this time and start patient on D5W -will monitor patient closely here in the hospital (5) COPD (chronic obstructive pulmonary disease) Current Visit: No Status: Chronic Plan: Duo nebs and oxygenation (6) GERD (gastroesophageal reflux disease) Onset Date: 07/11/15 Current Visit: No Status: Chronic Plan: Started on Protonix b.i.d. Qualifiers: Esophagitis presence: without esophagitis (7) Hypertension Onset Date: 06/24/15 Current Visit: No Status: Chronic Plan: Restart home medication Qualifiers: Hypertension type: essential hypertension (8) Tobacco abuse Current Visit: No Status: Chronic Plan: Educated extensively regarding tobacco cessation - Plan Pending clinical improvement at this time.
[2019-01-20 15:17] LABS: Urine Bacteria <20 /HPF (NONE SEEN); Urine Culture Reflex Order NOT NEEDED; Urine RBC <5 /HPF (NONE SEEN)
--- NOTE | 2019-01-20 16:58 | RAD REPORT ---
EXAM DESCRIPTION: RAD - Barium Swallow Modified - 01/20/2019 4:51 pm CLINICAL HISTORY: Aspiration/dysphagia FINDINGS: Laryngeal penetration: cleared-thin liquid cup size (2 in a row) not cleared: w/ thin by straw ( on 4th consecutive swallow) Pharyngeal residue: vallecular-mod, pyriform-min, posterior wall- min Fluoroscopy time 10.2 minutes Thirty-four fluoroscopic spot series obtained
[2019-01-20] MEDS ORDERED: TRAMADOL HCL 50 MG TAB PO ONE (19:00)
[2019-01-21 04:15] LABS: Absolute Lymphocytes (CBC) 1.8 K/uL (0.7-4.9); Basophils % 0.3 % (0-1.3); Hematocrit 29.3 % (39.6-49.0); Lymphocytes % 13.8 % (15.3-44.8); MPV 8.5 fL (7.6-11.3)
[2019-01-21 04:59] LABS: Albumin 2.6 g/dL (3.4-5.0); Bilirubin Total 0.7 mg/dL (0.2-1.0); Potassium 3.9 mmol/L (3.5-5.1); Protein, Total 6.2 g/dL (6.4-8.2)
[2019-01-21] MEDS ORDERED: POTASSIUM 25 MEQ EFFERV TAB PO ONE (09:00)
--- NOTE | 2019-01-21 09:55 | RAD REPORT ---
EXAM DESCRIPTION: CT - Head Brain Wo Cont - 01/21/2019 8:16 am CLINICAL HISTORY: Cerebral hematoma COMPARISON: January 19, 2019 TECHNIQUE: Computed axial tomography of the head was obtained. IV contrast was not requested. All CT scans are performed using dose optimization technique as appropriate and may include automated exposure control or mA/KV adjustment according to patient size. FINDINGS: No significant change has occurred in the appearance of the 3.2 centimeter low to intermed iate density mass within the left occipital/parietal lobe. Significant mass effect is not noted. No other significant change. Fluid within the sinuses/ mastoids is not seen. IMPRESSION: 3.2 centimeter subacute hematoma within the left occipital/ parietal lobe is without sig nificant change in size or appearance from the prior CAT scan
[2019-01-21] MEDS: FOLIC ACID 1 MG, MULTIVITAMINS INJ 10 ML, THIAMINE HCL 100 MG in NA CHLORIDE 0.9% 1,000 ML IV SCH (10:01)
[2019-01-21] MEDS: CEFTRIAXONE/SWI 1gm 1 GM/10 ML SYR IVP SCH (10:02)
[2019-01-21] MEDS: PANTOPRAZOLE 40 MG INJ IVP SCH ×2 (10:02→21:10)
[2019-01-21] MEDS: MORPHINE 2 MG/ML SYR IV PRN ×2 (10:15→16:19)
--- NOTE | 2019-01-21 15:02 | EEG ---
CHART: [id number] TEST ID#: [id number] DATE OF STUDY: 01/20/2019 THE EEG WAS RECORDED PORTABLE IN THE PATIENTS ROOM ON A 17 CHANNEL MACHINE. ELECTRODES WERE APPLIED IN THE USUAL MANNER USING THE INTERNATIONAL 10-20 SYSTEM. THE WAKING BACKGROUND RHYTHM IN THIS RECORD CONSISTS OF POORLY DEVELOPED AND POORLY ORGANIZED WAVES OF 6-7 HZ., IN A WIDE DISTRIBUTION WHICH ATTENUATE POORLY WITH EYE OPENING. THERE IS A FOCUS OF SHARP WAVES IN THE LEFT PARIETAL AND CENTRAL REGIONS. MODERATE VOLTAGE 4-6 HZ ACTIVITY IS DIFFUSELY EXPRESSED IN ALL REGIONS. SLEEP OCCURRED NATURALLY. IN ADDITION NORMAL SLEEP PATTERNS ARE PRESENT. HYPERVENTILATION WAS NOT PERFORMED. PHOTIC STIMULATION PRODUCED NO DRIVING BILATERALLY. IMPRESSION: THIS IS AN ABNORMAL AWAKE AND ASLEEP ROUTINE EEG DUE TO THE PRESENCE OF AN EPILEPTIFORM FOCUS IN THE LEFT PARIETAL AND CENRAL REGIONS SUPERIMPOSED ON A DIFFUSELY SLOW BACKGROUND. THE FINDINGS ARE CONSISTENT WITH A FOCAL LESION IN THE LEFT PARIETAL AND CENTRAL REGION AND A DIFFUSE DISTURBANCE IN CEREBRAL ACTIVITY.
[2019-01-21] MEDS: D5W 1,000 ML IV SCH (16:50)
--- NOTE | 2019-01-21 17:11 | P.PN ---
Subjective Date of Service: 01/21/19 Chart reviewed. Also spoke with Dr. Fulton, orthopedic, as patient has bilateral humeral fractures. Patient is repeat CT scan did not show any progression of the subdural hematoma. Patient will need conservative treatment of the bilateral humeral fractures. Dr. Fulton graciously accepted the Consult and will follow along. Review of Systems 10-point ROS is otherwise unremarkable Physical Examination - Vital Signs Temperature: 98.1 F Blood Pressure: 115/71 Pulse: 86 Respirations: 19 Pulse Ox (%): 97 - Physical Exam General: Alert, In no apparent distress, Oriented x2, Disheveled, Mild distress HEENT: Other (Facial bruising noted) Respiratory: Clear to auscultation bilaterally, Diminished Cardiovascular: Regular rate/rhythm, Normal S1 S2, No murmurs Gastrointestinal: Normal bowel sounds, Hypoactive, Soft and benign, Non- distended, No tenderness Musculoskeletal: No clubbing, No swelling, No contractures Neurological: Sensation intact, Cranial nerves 3-12 intact, Abnormal gait, Abnormal speech, Abnormal strength - Studies Medications List Reviewed: Yes Assessment & Plan - Problems (Diagnosis) (1) Subdural hematoma Current Visit: Yes Status: Acute (2) Traumatic brain injury Current Visit: Yes Status: Acute (3) Bilateral humeral fractures Current Visit: Yes Status: Acute (4) History of hypertension Current Visit: Yes Status: Acute (5) Generalized weakness Current Visit: Yes Status: Acute (6) History of alcohol use Current Visit: Yes Status: Acute (7) Alcohol abuse Current Visit: Yes Status: Acute (8) Electrolyte abnormality Current Visit: Yes Status: Acute (9) Rhabdomyolysis Current Visit: Yes Status: Acute Qualifiers: Rhabdomyolysis type: non-traumatic Qualified Code(s): M62.82 - Rhabdomyolysis (10) Hypertension Onset Date: 06/24/15 Current Visit: No Status: Chronic Qualifiers: Hypertension type: essential hypertension - Plan Plan: 1. Continue gentle hydration 2. Continue pain control 3. CT of the brain without any expansion of the subdural hematoma. Continue physical therapy and speech therapy as well as occupational therapy 4. Bilateral humeral fractures-patient to be nonweightbearing bilaterally 5. Strict blood pressure control 6. Monitor hemodynamics and electrolytes closely 7. GI and DVT prophylaxis Discharge Plan: Home Plan to discharge in: Greater than 2 days - Advance Directives Does patient have a Living Will: No Does patient have a Durable POA for Healthcare: No - Code Status/Comfort Care Code Status Assessed: Yes Code Status: Full Code Critical Care: No Time Spent Managing PTS Care (In Minutes): 40
[2019-01-21] MEDS: LORazepam 2 MG/ML VIAL IV PRN (21:10)
[2019-01-22] MEDS: D5W 1,000 ML IV SCH ×2 (00:31→10:49)
[2019-01-22] MEDS ORDERED: NA CHLORIDE 0.9% 500 ML IV ONE (02:48)
[2019-01-22] MEDS: NICOTINE 14 MG/PAT TD SCH ×2 (03:05→09:08)
[2019-01-22] MEDS: HYDROCODONE/APAP 5/325 MG TAB PO PRN ×3 (03:58→21:34)
[2019-01-22 05:56] LABS: Albumin 2.3 g/dL (3.4-5.0); Bilirubin Total 0.9 mg/dL (0.2-1.0); Folic Acid, (Folate) 4.6 ng/mL (3.1-17.5); Potassium 3.6 mmol/L (3.5-5.1); Protein, Total 5.3 g/dL (6.4-8.2)
[2019-01-22] MEDS: MORPHINE 2 MG/ML SYR IV PRN ×3 (06:20→22:29)
[2019-01-22 06:34] LABS: Absolute Lymphocytes (CBC) 1.6 K/uL (0.7-4.9); Basophils % 0.7 % (0-1.3); Hematocrit 28.8 % (39.6-49.0); Lymphocytes % 17.1 % (15.3-44.8); MPV 9.2 fL (7.6-11.3); RBC Red Blood Cell Count 2.75 M/uL (4.33-5.43)
[2019-01-22] MEDS ORDERED: POTASSIUM 25 MEQ EFFERV TAB PO ONE (09:00)
[2019-01-22] MEDS: FOLIC ACID 1 MG, MULTIVITAMINS INJ 10 ML, THIAMINE HCL 100 MG in NA CHLORIDE 0.9% 1,000 ML IV SCH (09:06)
[2019-01-22] MEDS: DOCUSATE NA 100 MG CAP PO SCH ×2 (09:08→21:34)
[2019-01-22] MEDS: CEFTRIAXONE/SWI 1gm 1 GM/10 ML SYR IVP SCH (09:08)
[2019-01-22] MEDS: PANTOPRAZOLE 40 MG INJ IVP SCH ×2 (09:10→21:34)
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
--- NOTE | 2019-01-22 22:57 | EKG ---
Test Date: 2019-01-22 Test Time: 03:54:01 [employer]ator: RT MEASUREMENT RESULTS: Intervals: Rate: 97 KS: 142 QRSD: 94 QT: 280 QTc: 355 [place]: P: 19 KS: 142 QRS: 51 T: 2 INTERPRETIVE STATEMENTS: Normal sinus rhythm Nonspecific T wave abnormality Abnormal ECG Compared to ECG 01/19/2019 10:25:52 T-wave abnormality now present Prolonged QT interval no longer present Electronically Signed On 01-22-19 22:56:00 [employer] by Jadon Chamorro
[2019-01-23] MEDS: HYDROCODONE/APAP 5/325 MG TAB PO PRN ×3 (01:14→21:28)
[2019-01-23] MEDS: MORPHINE 2 MG/ML SYR IV PRN ×4 (02:22→19:09)
[2019-01-23 05:30] LABS: Magnesium 1.9 mg/dL (1.8-2.4); Potassium 3.5 mmol/L (3.5-5.1)
--- NOTE | 2019-01-23 07:03 | P.PN ---
Subjective Date of Service: 01/22/19 patient is clinically improving. Patient will be nonweightbearing because of bilateral humeral fractures. Patient is planning to go to shelter facility rehab at [facility]. Orthopedic surgery wants to evaluate how patient does and how well he can refrain from alcohol use prior to doing any surgical intervention. Patient will probably need bilateral shoulder replacements and if he continues to drink then may not be beneficial to do the surgical procedure. If patient is able to refrain from alcohol use and he is cleared from neurologic standpoint for surgery then plan to do surgery in the next few weeks. Afterwards patient could go to inpatient rehab and then the long-term plan is to go to an assisted living Review of Systems 10-point ROS is otherwise unremarkable Physical Examination - Vital Signs Temperature: 98.0 F Blood Pressure: 115/56 Pulse: 96 Respirations: 18 Pulse Ox (%): 96 - Physical Exam General: Alert, In no apparent distress, Oriented x3 Respiratory: Clear to auscultation bilaterally, Normal air movement Cardiovascular: Regular rate/rhythm, Normal S1 S2 Gastrointestinal: Normal bowel sounds, Soft and benign, Non-distended Musculoskeletal: No clubbing, No swelling, Tenderness ( bilateral upper extremities), Other ( patient has suffered bilateral humeral fractures) Neurological: Other ( patient's strength is improving; cranial nerves are intact ; patient is clinically improved) - Studies Medications List Reviewed: Yes Assessment & Plan - Problems (Diagnosis) (1) Subdural hematoma Current Visit: Yes Status: Acute (2) Traumatic brain injury Current Visit: Yes Status: Acute (3) Bilateral humeral fractures Current Visit: Yes Status: Acute (4) History of hypertension Current Visit: Yes Status: Acute (5) Generalized weakness Current Visit: Yes Status: Acute (6) History of alcohol use Current Visit: Yes Status: Acute (7) Alcohol abuse Current Visit: Yes Status: Acute (8) Electrolyte abnormality Current Visit: Yes Status: Acute (9) Rhabdomyolysis Current Visit: Yes Status: Acute Qualifiers: Rhabdomyolysis type: non-traumatic Qualified Code(s): M62.82 - Rhabdomyolysis (10) Hypertension Onset Date: 06/24/15 Current Visit: No Status: Chronic Qualifiers: Hypertension type: essential hypertension - Plan Plan: 1. advanced diet as tolerated. May Hep-Lock IV if labs and electrolytes are improved 2. Continue pain control 3. continue with current plan of care and arrange for shelter facility placement with rehab back [facility]. Afterwards possible surgery if patient is refraining from alcohol use and neurologically cleared. Patient within go to inpatient rehab and eventually the plan is for him to live at an assisted living and no longer drink alcohol. 4. Bilateral humeral fractures-patient to be nonweightbearing bilaterally; Appreciate orthopedic input 5. Strict blood pressure control 6. Monitor hemodynamics and electrolytes closely 7. GI and DVT prophylaxis Discharge Plan: Skilled Nursing Plan to discharge in: Greater than 2 days - Advance Directives Does patient have a Living Will: No Does patient have a Durable POA for Healthcare: No - Code Status/Comfort Care Code Status: Full Code Critical Care: No Time Spent Managing PTS Care (In Minutes): 30
[2019-01-23] MEDS ORDERED: POTASSIUM CL SA 10 MEQ TAB PO ONE (08:00)
[2019-01-23] MEDS: CEFTRIAXONE/SWI 1gm 1 GM/10 ML SYR IVP SCH (09:14)
[2019-01-23] MEDS: NICOTINE 14 MG/PAT TD SCH (09:14)
[2019-01-23] MEDS: PANTOPRAZOLE 40 MG INJ IVP SCH (09:15)
[2019-01-23] MEDS: FOLIC ACID 1 MG, MULTIVITAMINS INJ 10 ML, THIAMINE HCL 100 MG in NA CHLORIDE 0.9% 1,000 ML IV SCH (09:15)
[2019-01-23] MEDS: DOCUSATE NA 100 MG CAP PO SCH ×2 (09:15→20:51)
--- NOTE | 2019-01-23 09:40 | P.PN ---
Subjective Date of Service: 01/23/19 Primary Care Provider: Unknowm Chief Complaint: bilateral proximal humerus fracture Subjective: No new changes (seen , admitted for fall with left parietal lobe hematoma , hx ofn chronic alcoholisih , rhabdo and b/l humeral fractures - tolerating po , non recent agitations) Review of Systems 10-point ROS is otherwise unremarkable Physical Examination - Vital Signs Temperature: 98.0 F Blood Pressure: 116/62 Pulse: 92 Respirations: 17 Pulse Ox (%): 95 - Physical Exam General: Alert, In no apparent distress HEENT: Atraumatic, Normocephalic Neck: Supple, 2+ carotid pulse no bruit Respiratory: Clear to auscultation bilaterally, Normal air movement Cardiovascular: No edema, Regular rate/rhythm, Normal S1 S2 Gastrointestinal: Normal bowel sounds, No tenderness, Tenderness (epigastric ) Musculoskeletal: Tenderness (ecchymosis and fading brusies over b/l upper arm ) Neurological: Normal gait, Normal speech (limited movbt of b/l arm fue to fracture s) - Studies Medications List Reviewed: Yes Assessment & Plan - Problems (Diagnosis) (1) Alcohol abuse Current Visit: Yes Status: Acute (2) Bilateral humeral fractures Current Visit: Yes Status: Acute (3) Generalized weakness Current Visit: Yes Status: Acute (4) History of hypertension Current Visit: Yes Status: Acute (5) Rhabdomyolysis Current Visit: Yes Status: Resolved Qualifiers: Rhabdomyolysis type: traumatic (6) Subdural hematoma Current Visit: Yes Status: Acute (7) Traumatic brain injury Current Visit: Yes Status: Acute Discharge Plan: [facility] Living Plan to discharge in: 24 Hours - Code Status/Comfort Care Code Status: Full Code Physician Review: Patient Assessed, Agree with Above Assessment and Plan Physician Review Additional Text: - doing well - increase PPI to bid for epigastric pain -likely GERD - will remove hanna today - agree with neuro plan for 2 weeks of SNF then re-evaluate with head ct for resolution of parietal hematoma before plan for surgery - can follow with ortho as outpt - follow case mgt for plan for SNF - will dsicharge to SNF when bed available - daughter and patient d/w today Critical Care: No Time Spent Managing Pts Care (In Minutes): 35
[2019-01-23] MEDS: PANTOPRAZOLE 40MG TABLET PO SCH (17:12)
[2019-01-23] MEDS ORDERED: PNEUMOCOCCAL VACCINE 0.5 ML IMVAC ONE (18:00)
[2019-01-23] MEDS ORDERED: INFLUENZA VACCINE (for 3y+) 0.5 ML DOSE IMVAC ONE (18:00)
[2019-01-23] MEDS: D5W 1,000 ML IV SCH (18:31)
--- NOTE | 2019-01-23 21:47 | CON ---
Date of Consultation: 01/21/2019 Reason For Consultation: Bilateral proximal humerus fractures. History Of Present Illness: Mr. Farnsworth is a 68-year-old male who was admitted to the hospital on January 19, 2019, after being found down in a local [place]. The patient has history of chronic alcohol abuse, was found down after this. His family could not reach him. EMS was called and found the patient lying on the ground in his own feces. He was brought to the hospital and had scans which demonstrated an intracerebral hematoma as well as bilateral proximal humerus fractures. He was medically stabilized over the past couple of days, and orthopedics was consulted for further evaluation and treatment recommendations of his proximal humerus fractures. At this time, the patient is still relatively somnolent and confused. However, the patient's family states he is improving from his condition on admission. Review of Systems: As above, otherwise negative. Past Medical History: Includes hypertension, anxiety, GERD, COPD, history of gastric ulcers, and alcohol abuse. Past Surgical History: Includes gastric ulcer repair and vasectomy. Home Medications: Lisinopril, aspirin, Protonix, Symbicort, atorvastatin, Vascepa, nitroglycerin. Social History: Reports he has history of alcohol every day, tobacco use, drug use. He does report alcohol use. Physical Examination: General: No apparent distress. HEENT: Normocephalic, atraumatic. Neck: Supple. Cardiovascular: Brisk cap refill to all digits. Chest: Nonlabored breathing. Abdomen: Nondistended. Psychiatric: Response to exam. Musculoskeletal: Right upper extremity; he does have some ecchymosis over his right upper arm with pain with range of motion of his right shoulder and tenderness to palpation over the proximal humerus. Moves hands closely distally. Unable to participate in neuromotor exam. Left upper extremity, no pain with range of motion of the elbow, wrist, or hand. Pain with range of motion of the left shoulder. Tenderness to palpation of the left shoulder with ecchymosis over the upper arm, moves hand grossly distally. Unable to participate in the neuromotor exam. Bilateral lower extremities have functional range of motion without pain. No gross deformities. No obvious dislocations. Diagnostic Imaging: X-rays and CT scan demonstrate a comminuted bilateral proximal humerus fractures with fractures extending into the humeral head with some impaction of the humeral head at the level of the glenoid. Assessment And Plan: Mega is a 68-year-old male with alcohol abuse with intracerebral hematoma and rhabdomyolysis, also with a bilateral proximal humerus fractures. Given his fracture pattern, it is likely that he will require hemiarthroplasty versus open reduction and internal fixation of his bilateral shoulders. However, he is with his current intracerebral hematoma and rhabdomyolysis, and we will wait until he is more medically stable. Patient also has history of alcohol abuse, which puts him at a high risk for perioperative complications. We will continue to monitor the patient as he improves medically and see how he is improved with his mental status prior to discussing any surgery further. I discussed with the patient and daughter at length over the phone. Plan: At this point, he stated that patient may be being discharged to a rehab versus detention facility in the future. Also discussed with the patient. I also discussed with patient's family the possibility that I may have him be evaluated by an outside orthopedist, shoulder reconstruction specialist, for further treatment recommendations and they expressed understanding. Continue to follow. GUSTAVO/DEMARCUS Voice ID: [id number] Report ID: [id number]
[2019-01-23] MEDS: LORazepam 2 MG/ML VIAL IV PRN (23:10)
[2019-01-24] MEDS: D5W 1,000 ML IV SCH ×2 (02:37→04:19)
[2019-01-24] MEDS: MORPHINE 2 MG/ML SYR IV PRN ×4 (03:20→20:37)
[2019-01-24 04:56] LABS: Albumin 2.3 g/dL (3.4-5.0); Bilirubin Total 0.6 mg/dL (0.2-1.0); Potassium 3.6 mmol/L (3.5-5.1); Protein, Total 5.7 g/dL (6.4-8.2)
[2019-01-24] MEDS: HYDROCODONE/APAP 5/325 MG TAB PO PRN ×3 (05:54→18:44)
[2019-01-24] MEDS: PANTOPRAZOLE 40MG TABLET PO SCH ×2 (07:30→15:38)
[2019-01-24] MEDS ORDERED: POTASSIUM 25 MEQ EFFERV TAB PO ONE (07:39)
[2019-01-24] MEDS: FOLIC ACID 1 MG, MULTIVITAMINS INJ 10 ML, THIAMINE HCL 100 MG in NA CHLORIDE 0.9% 1,000 ML IV SCH (09:00)
[2019-01-24] MEDS: DOCUSATE NA 100 MG CAP PO SCH ×2 (09:01→20:38)
[2019-01-24] MEDS: NICOTINE 14 MG/PAT TD SCH (09:01)
--- NOTE | 2019-01-24 11:26 | P.PN ---
Subjective Date of Service: 01/24/19 Primary Care Provider: Unknowm Chief Complaint: bilateral proximal humerus fracture Subjective: No new changes (-seen , no new changes) Review of Systems 10-point ROS is otherwise unremarkable Physical Examination - Vital Signs Temperature: 98 F Blood Pressure: 129/61 Pulse: 88 Respirations: 19 Pulse Ox (%): 98 - Physical Exam General: Alert, In no apparent distress, Oriented x3 HEENT: Atraumatic, Normocephalic, PERRLA, Mucous membr. moist/pink Neck: Supple, 2+ carotid pulse no bruit, JVD not distended Cardiovascular: No edema, Normal pulses, Regular rate/rhythm, Normal S1 S2 Gastrointestinal: Normal bowel sounds, Soft and benign Musculoskeletal: Other (b/l upper arm splint , fadibng bruisies ) Integumentary: No rashes, No breakdown Neurological: Normal gait, Normal speech - Studies Laboratory Last Values WBC 9.5 K/uL (4.3-10.9) D 01/22/19 04:28 RBC 2.75 M/uL (4.33-5.43) L 01/22/19 04:28 Hgb 9.5 g/dL (13.6-17.9) L 01/22/19 04:28 Hct 28.8 % (39.6-49.0) L 01/22/19 04:28 MCV 104.9 fL (80-100) H 01/22/19 04:28 MCH 34.7 pg (27.0-35.0) 01/22/19 04:28 MCHC 33.1 g/dL (32.0-36.0) 01/22/19 04:28 RDW 14.2 % (12.1-15.2) 01/22/19 04:28 Plt Count 225 K/uL (152-406) 01/22/19 04:28 MPV 9.2 fL (7.6-11.3) 01/22/19 04:28 Total Counted Cancelled 01/19/19 09:38 Neutrophils % 67.4 % (41.7-73.7) 01/22/19 04:28 Lymphocytes % 17.1 % (15.3-44.8) 01/22/19 04:28 Monocytes % 11.6 % (3.3-12.3) 01/22/19 04:28 Eosinophils % 3.2 % (0-4.4) 01/22/19 04:28 Basophils % 0.7 % (0-1.3) 01/22/19 04:28 Absolute Neutrophils 6.4 K/uL (1.8-8.0) 01/22/19 04:28 Segmented Neutrophils Cancelled 01/19/19 09:38 Band Neutrophils Cancelled 01/19/19 09:38 Absolute Lymphocytes 1.6 K/uL (0.7-4.9) 01/22/19 04:28 Lymphocytes Cancelled 01/19/19 09:38 Monocytes Cancelled 01/19/19 09:38 Absolute Monocytes 1.1 K/uL (0.1-1.3) 01/22/19 04:28 Eosinophils Cancelled 01/19/19 09:38 Absolute Eosinophils 0.3 K/uL (0-0.5) 01/22/19 04:28 Basophils Cancelled 01/19/19 09:38 Absolute Basophils 0.1 K/uL (0-0.5) 01/22/19 04:28 Metamyelocytes Cancelled 01/19/19 09:38 Myelocytes Cancelled 01/19/19 09:38 Promyelocytes Cancelled 01/19/19 09:38 Nucleated RBCs Cancelled 01/19/19 09:38 Atypical Lymphocytes Cancelled 01/19/19 09:38 Reactive Lymphocytes Cancelled 01/19/19 09:38 Lymphoblasts Cancelled 01/19/19 09:38 Blast Cells Cancelled 01/19/19 09:38 Immature Blood Cells Cancelled 01/19/19 09:38 Plasma Cells Cancelled 01/19/19 09:38 Smudge Cells Cancelled 01/19/19 09:38 Giant Platelets Few 01/19/19 09:38 Anisocytosis 1+ 01/19/19 09:38 Macrocytosis 1+ 01/19/19 09:38 Unidentified Cells Cancelled 01/19/19 09:38 Morphology Comment Noted (NOT SEEN) 01/19/19 09:38 PT 12.4 SECONDS (9.5-12.5) 01/19/19 10:39 INR 1.05 01/19/19 10:39 APTT 27.8 SECONDS (24.3-36.9) 01/19/19 10:39 Sodium 141 mmol/L (136-145) 01/24/19 04:03 Potassium 3.6 mmol/L (3.5-5.1) 01/24/19 04:03 Chloride 111 mmol/L (98-107) H 01/24/19 04:03 Carbon Dioxide 25 mmol/L (21-32) 01/24/19 04:03 BUN 16 mg/dL (7-18) 01/24/19 04:03 Creatinine 0.94 mg/dL (0.55-1.3) 01/24/19 04:03 Estimated GFR 79 mL/min (=/>90) L 01/24/19 04:03 Glucose 104 mg/dL (74-106) 01/24/19 04:03 POC Glucose 111 mg/dl (65-120) 01/24/19 08:06 Calcium 8.6 mg/dL (8.5-10.1) 01/24/19 04:03 Phosphorus 3.0 mg/dL (2.5-4.9) 01/23/19 04:45 Magnesium 1.7 mg/dL (1.8-2.4) L 01/24/19 10:57 Total Bilirubin 0.6 mg/dL (0.2-1.0) 01/24/19 04:03 Direct Bilirubin 0.3 mg/dL (0-0.2) H 01/19/19 10:39 AST 37 U/L (15-37) 01/24/19 04:03 ALT 54 U/L (12-78) 01/24/19 04:03 Alkaline Phosphatase 76 U/L (45-117) 01/24/19 04:03 Ammonia < 10 umol/L (19-54) L 01/20/19 12:08 Creatine Kinase 2289 U/L (39-308) H* 01/19/19 10:39 CK-MB (CK-2) 1.8 ng/mL (0.3-3.6) 01/20/19 12:08 Serum Total Protein 5.7 g/dL (6.4-8.2) L 01/24/19 04:03 Albumin 2.3 g/dL (3.4-5.0) L 01/24/19 04:03 Globulin 3.4 g/dL (2.3-3.5) 01/24/19 04:03 Albumin/Globulin Ratio 0.7 (1.1-1.8) L 01/24/19 04:03 LDL Cholesterol Direct 163 mg/dL (100-129) H 01/19/19 10:39 Vitamin B12 356 pg/mL (193-986) 01/22/19 04:28 Serum Folate 4.6 ng/mL (3.1-17.5) 01/22/19 04:28 TSH 0.663 uIU/mL (0.360-3.740) 01/19/19 10:39 Urine Color Yellow 01/20/19 13:24 Urine Appearance Clear 01/20/19 13:24 Urine pH 5.5 (5.0-7.0) 01/20/19 13:24 Ur Specific [place] 1.020 (1.005-1.030) 01/20/19 13:24 Urine Ketones Trace (NEG) 01/20/19 13:24 Urine Blood 1+ (NEG) H 01/20/19 13:24 Urine Nitrite Negative (NEG) 01/20/19 13:24 Urine Bilirubin Negative (NEG) 01/20/19 13:24 Urine Urobilinogen 1.0 mg/dL (0.2-1.0) 01/20/19 13:24 Ur Leukocyte Esterase Negative (NEG) 01/20/19 13:24 Urine RBC <5 /HPF (NONE SEEN) 01/20/19 13:24 Urine WBC <5 /HPF (<5) 01/20/19 13:24 Ur Squamous Epith Cells <5 /HPF (NONE SEEN) 01/20/19 13:24 Uric Acid Crystals Many (NONE SEEN) H 01/20/19 13:24 Urine Bacteria <20 /HPF (NONE SEEN) 01/20/19 13:24 Urine Culture Reflexed Not needed 01/20/19 13:24 Urine Glucose Negative (NEG) 01/20/19 13:24 Urine Total Protein Trace (NEG) 01/20/19 13:24 Salicylates 5.1 mg/dL (2.8-20) 01/19/19 10:39 Opiates Screen Negative (NEGATIVE) 01/19/19 13:24 Methadone Screen Negative (NEGATIVE) 01/19/19 13:24 Acetaminophen < 2.0 ug/mL (10.0-30.0) L 01/19/19 10:39 Ur Barbiturates Screen Negative (NEGATIVE) 01/19/19 13:24 Ur Phencyclidine Scrn Negative (NEGATIVE) 01/19/19 13:24 Amphetamines Screen Negative (NEGATIVE) 01/19/19 13:24 Benzodiazepines Screen Negative (NEGATIVE) 01/19/19 13:24 Cocaine Screen Negative (NEGATIVE) 01/19/19 13:24 Ur THC Screen Negative (NEGATIVE) 01/19/19 13:24 Plasma/Serum Alcohol < 3 mg/dL (<3) 01/19/19 10:39 Medications List Reviewed: Yes Assessment & Plan - Problems (Diagnosis) (1) Alcohol abuse Current Visit: Yes Status: Acute (2) Bilateral humeral fractures Current Visit: Yes Status: Acute (3) Generalized weakness Current Visit: Yes Status: Acute (4) History of hypertension Current Visit: Yes Status: Acute (5) Rhabdomyolysis Current Visit: Yes Status: Resolved Qualifiers: Rhabdomyolysis type: traumatic (6) Subdural hematoma Current Visit: Yes Status: Acute (7) Traumatic brain injury Current Visit: Yes Status: Acute Discharge Plan: [facility] Plan to discharge in: Unknown - Code Status/Comfort Care Code Status Assessed: Yes Code Status: Full Code Physician Review: Patient Assessed, Agree with Above Assessment and Plan Physician Review Additional Text: # b/l Humeral fracture - follow plan for surgery when brain hematoma resolved after 2 weeks -c/w splint # Subdural Parietal hematoma -chronic , resolving , follow repeat CT in 2 weeks prior to clearing for ortho surgery # falls - awaiting SNF placement # follow case mgt # Hypomagensmeia/hypokalemia- will replte again # Alcohol abuse - with withdrawals -imprving , c/w ativan prn dc when snf bed available
[2019-01-24] MEDS: LORazepam 2 MG/ML VIAL IV PRN (11:45)
[2019-01-25] MEDS: MORPHINE 2 MG/ML SYR IV PRN ×5 (00:34→20:03)
[2019-01-25] MEDS: HYDROCODONE/APAP 5/325 MG TAB PO PRN ×5 (03:03→22:27)
[2019-01-25 06:06] LABS: Basophils % 0.7 % (0-1.3); Hematocrit 27.4 % (39.6-49.0); Lymphocytes % 18.2 % (15.3-44.8); RBC Red Blood Cell Count 2.69 M/uL (4.33-5.43)
[2019-01-25 06:24] LABS: Albumin 2.3 g/dL (3.4-5.0); Bilirubin Total 0.4 mg/dL (0.2-1.0); Magnesium 2.1 mg/dL (1.8-2.4); Potassium 3.7 mmol/L (3.5-5.1); Protein, Total 5.5 g/dL (6.4-8.2)
[2019-01-25] MEDS ORDERED: POTASSIUM 25 MEQ EFFERV TAB PO ONE (06:30)
[2019-01-25] MEDS: DOCUSATE NA 100 MG CAP PO SCH ×2 (07:28→20:04)
[2019-01-25] MEDS: NICOTINE 14 MG/PAT TD SCH (07:28)
[2019-01-25] MEDS: PANTOPRAZOLE 40MG TABLET PO SCH ×2 (07:28→16:06)
[2019-01-25] MEDS: FOLIC ACID 1 MG, MULTIVITAMINS INJ 10 ML, THIAMINE HCL 100 MG in NA CHLORIDE 0.9% 1,000 ML IV SCH (09:01)
[2019-01-25] MEDS ORDERED: Magnesium Sulfate 2gm IVPB 2 G/50 ML BAG IV ONE (12:00)
--- NOTE | 2019-01-25 12:08 | P.PN ---
Subjective Date of Service: 01/25/19 Primary Care Provider: Unknowm Chief Complaint: bilateral proximal humerus fracture Subjective: No new changes, No C/O voiced (able to sit up in chair with PT yesterday , daughter in room today) Review of Systems 10-point ROS is otherwise unremarkable Physical Examination - Vital Signs Temperature: 97.8 F Blood Pressure: 112/71 Pulse: 87 Respirations: 19 Pulse Ox (%): 94 - Physical Exam General: Alert, In no apparent distress HEENT: Normocephalic, PERRLA Neck: Supple, JVD not distended Respiratory: Clear to auscultation bilaterally, Normal air movement Cardiovascular: Normal pulses, Regular rate/rhythm Musculoskeletal: Tenderness (b/l arm burises and splint insitu ) - Studies Laboratory Last Values WBC 11.0 K/uL (4.3-10.9) H D 01/25/19 05:28 RBC 2.69 M/uL (4.33-5.43) L 01/25/19 05:28 Hgb 9.4 g/dL (13.6-17.9) L 01/25/19 05:28 Hct 27.4 % (39.6-49.0) L 01/25/19 05:28 MCV 102.1 fL (80-100) H 01/25/19 05:28 MCH 35.0 pg (27.0-35.0) 01/25/19 05:28 MCHC 34.3 g/dL (32.0-36.0) 01/25/19 05:28 RDW 13.7 % (12.1-15.2) 01/25/19 05:28 Plt Count 233 K/uL (152-406) 01/25/19 05:28 MPV 9.0 fL (7.6-11.3) 01/25/19 05:28 Total Counted Cancelled 01/19/19 09:38 Neutrophils % 68.3 % (41.7-73.7) 01/25/19 05:28 Lymphocytes % 18.2 % (15.3-44.8) 01/25/19 05:28 Monocytes % 9.7 % (3.3-12.3) 01/25/19 05:28 Eosinophils % 3.1 % (0-4.4) 01/25/19 05:28 Basophils % 0.7 % (0-1.3) 01/25/19 05:28 Absolute Neutrophils 7.5 K/uL (1.8-8.0) 01/25/19 05:28 Segmented Neutrophils Cancelled 01/19/19 09:38 Band Neutrophils Cancelled 01/19/19 09:38 Absolute Lymphocytes 2.0 K/uL (0.7-4.9) 01/25/19 05:28 Lymphocytes Cancelled 01/19/19 09:38 Monocytes Cancelled 01/19/19 09:38 Absolute Monocytes 1.1 K/uL (0.1-1.3) 01/25/19 05:28 Eosinophils Cancelled 01/19/19 09:38 Absolute Eosinophils 0.3 K/uL (0-0.5) 01/25/19 05:28 Basophils Cancelled 01/19/19 09:38 Absolute Basophils 0.1 K/uL (0-0.5) 01/25/19 05:28 Metamyelocytes Cancelled 01/19/19 09:38 Myelocytes Cancelled 01/19/19 09:38 Promyelocytes Cancelled 01/19/19 09:38 Nucleated RBCs Cancelled 01/19/19 09:38 Atypical Lymphocytes Cancelled 01/19/19 09:38 Reactive Lymphocytes Cancelled 01/19/19 09:38 Lymphoblasts Cancelled 01/19/19 09:38 Blast Cells Cancelled 01/19/19 09:38 Immature Blood Cells Cancelled 01/19/19 09:38 Plasma Cells Cancelled 01/19/19 09:38 Smudge Cells Cancelled 01/19/19 09:38 Giant Platelets Few 01/19/19 09:38 Anisocytosis 1+ 01/19/19 09:38 Macrocytosis 1+ 01/19/19 09:38 Unidentified Cells Cancelled 01/19/19 09:38 Morphology Comment Noted (NOT SEEN) 01/19/19 09:38 PT 12.4 SECONDS (9.5-12.5) 01/19/19 10:39 INR 1.05 01/19/19 10:39 APTT 27.8 SECONDS (24.3-36.9) 01/19/19 10:39 Sodium 141 mmol/L (136-145) 01/25/19 05:28 Potassium 3.7 mmol/L (3.5-5.1) 01/25/19 05:28 Chloride 111 mmol/L (98-107) H 01/25/19 05:28 Carbon Dioxide 26 mmol/L (21-32) 01/25/19 05:28 BUN 16 mg/dL (7-18) 01/25/19 05:28 Creatinine 0.97 mg/dL (0.55-1.3) 01/25/19 05:28 Estimated GFR 77 mL/min (=/>90) L 01/25/19 05:28 Glucose 114 mg/dL (74-106) H 01/25/19 05:28 POC Glucose 101 mg/dl (65-120) 01/25/19 11:10 Calcium 8.6 mg/dL (8.5-10.1) 01/25/19 05:28 Phosphorus 3.0 mg/dL (2.5-4.9) 01/23/19 04:45 Magnesium 2.1 mg/dL (1.8-2.4) 01/25/19 05:28 Total Bilirubin 0.4 mg/dL (0.2-1.0) 01/25/19 05:28 Direct Bilirubin 0.3 mg/dL (0-0.2) H 01/19/19 10:39 AST 31 U/L (15-37) 01/25/19 05:28 ALT 50 U/L (12-78) 01/25/19 05:28 Alkaline Phosphatase 83 U/L (45-117) 01/25/19 05:28 Ammonia < 10 umol/L (19-54) L 01/20/19 12:08 Creatine Kinase 2289 U/L (39-308) H* 01/19/19 10:39 CK-MB (CK-2) 1.8 ng/mL (0.3-3.6) 01/20/19 12:08 Serum Total Protein 5.5 g/dL (6.4-8.2) L 01/25/19 05:28 Albumin 2.3 g/dL (3.4-5.0) L 01/25/19 05:28 Globulin 3.2 g/dL (2.3-3.5) 01/25/19 05:28 Albumin/Globulin Ratio 0.7 (1.1-1.8) L 01/25/19 05:28 LDL Cholesterol Direct 163 mg/dL (100-129) H 01/19/19 10:39 Vitamin B12 356 pg/mL (193-986) 01/22/19 04:28 Serum Folate 4.6 ng/mL (3.1-17.5) 01/22/19 04:28 TSH 0.663 uIU/mL (0.360-3.740) 01/19/19 10:39 Urine Color Yellow 01/20/19 13:24 Urine Appearance Clear 01/20/19 13:24 Urine pH 5.5 (5.0-7.0) 01/20/19 13:24 Ur Specific [place] 1.020 (1.005-1.030) 01/20/19 13:24 Urine Ketones Trace (NEG) 01/20/19 13:24 Urine Blood 1+ (NEG) H 01/20/19 13:24 Urine Nitrite Negative (NEG) 01/20/19 13:24 Urine Bilirubin Negative (NEG) 01/20/19 13:24 Urine Urobilinogen 1.0 mg/dL (0.2-1.0) 01/20/19 13:24 Ur Leukocyte Esterase Negative (NEG) 01/20/19 13:24 Urine RBC <5 /HPF (NONE SEEN) 01/20/19 13:24 Urine WBC <5 /HPF (<5) 01/20/19 13:24 Ur Squamous Epith Cells <5 /HPF (NONE SEEN) 01/20/19 13:24 Uric Acid Crystals Many (NONE SEEN) H 01/20/19 13:24 Urine Bacteria <20 /HPF (NONE SEEN) 01/20/19 13:24 Urine Culture Reflexed Not needed 01/20/19 13:24 Urine Glucose Negative (NEG) 01/20/19 13:24 Urine Total Protein Trace (NEG) 01/20/19 13:24 Salicylates 5.1 mg/dL (2.8-20) 01/19/19 10:39 Opiates Screen Negative (NEGATIVE) 01/19/19 13:24 Methadone Screen Negative (NEGATIVE) 01/19/19 13:24 Acetaminophen < 2.0 ug/mL (10.0-30.0) L 01/19/19 10:39 Ur Barbiturates Screen Negative (NEGATIVE) 01/19/19 13:24 Ur Phencyclidine Scrn Negative (NEGATIVE) 01/19/19 13:24 Amphetamines Screen Negative (NEGATIVE) 01/19/19 13:24 Benzodiazepines Screen Negative (NEGATIVE) 01/19/19 13:24 Cocaine Screen Negative (NEGATIVE) 01/19/19 13:24 Ur THC Screen Negative (NEGATIVE) 01/19/19 13:24 Plasma/Serum Alcohol < 3 mg/dL (<3) 01/19/19 10:39 Microbiology Data (last 24 hrs): 01/19/19 13:17 Blood - Blood Aerobic Blood Culture - Final No growth in 5 days. 01/19/19 13:17 Blood - Blood Anaerobic Blood Culture - Final No growth in 5 days. 01/19/19 13:00 Blood - Blood Aerobic Blood Culture - Final No growth in 5 days. 01/19/19 13:00 Blood - Blood Anaerobic Blood Culture - Final No growth in 5 days. Medications List Reviewed: Yes Assessment & Plan - Problems (Diagnosis) (1) Alcohol abuse Current Visit: Yes Status: Acute (2) Bilateral humeral fractures Current Visit: Yes Status: Acute (3) Generalized weakness Current Visit: Yes Status: Acute (4) History of hypertension Current Visit: Yes Status: Acute (5) Rhabdomyolysis Current Visit: Yes Status: Resolved Qualifiers: Rhabdomyolysis type: traumatic (6) Subdural hematoma Current Visit: Yes Status: Acute (7) Traumatic brain injury Current Visit: Yes Status: Acute Discharge Plan: [facility] Plan to discharge in: 24 Hours - Code Status/Comfort Care Code Status Assessed: Yes Code Status: Full Code Physician Review: Patient Assessed, Agree with Above Assessment and Plan Physician Review Additional Text: 01/25 - no new changes -continue plan as yesterday -continue PT for ambulation and OOB to chair -Ru d/w 01/24 # b/l Humeral fracture - follow plan for surgery when brain hematoma resolved after 2 weeks -c/w splint # Subdural Parietal hematoma -chronic , resolving , follow repeat CT in 2 weeks prior to clearing for ortho surgery # falls - awaiting SNF placement # follow case mgt # Hypomagnesemia/hypokalemia- will replete again # Alcohol abuse - with withdrawals -improving , c/w ativan prn dc when snf bed available Time Spent Managing Pts Care (In Minutes): 20
[2019-01-26] MEDS: MORPHINE 2 MG/ML SYR IV PRN ×5 (00:15→20:55)
[2019-01-26] MEDS: HYDROCODONE/APAP 5/325 MG TAB PO PRN ×5 (03:08→22:21)
[2019-01-26 04:51] LABS: Absolute Lymphocytes (CBC) 2.1 K/uL (0.7-4.9); Hematocrit 30.4 % (39.6-49.0); Lymphocytes % 17.2 % (15.3-44.8); MPV 8.6 fL (7.6-11.3); RBC Red Blood Cell Count 2.97 M/uL (4.33-5.43)
[2019-01-26 05:00] LABS: Magnesium 1.9 mg/dL (1.8-2.4); Potassium 4.1 mmol/L (3.5-5.1)
[2019-01-26] MEDS: DOCUSATE NA 100 MG CAP PO SCH ×2 (07:42→20:55)
[2019-01-26] MEDS: NICOTINE 14 MG/PAT TD SCH (07:43)
[2019-01-26] MEDS: PANTOPRAZOLE 40MG TABLET PO SCH ×2 (07:43→15:16)
[2019-01-26] MEDS: FOLIC ACID 1 MG, MULTIVITAMINS INJ 10 ML, THIAMINE HCL 100 MG in NA CHLORIDE 0.9% 1,000 ML IV SCH (09:00)
--- NOTE | 2019-01-26 15:04 | P.PN ---
Subjective Date of Service: 01/26/19 Primary Care Provider: Unknowm Chief Complaint: bilateral proximal humerus fracture Subjective: No new changes, No C/O voiced Review of Systems 10-point ROS is otherwise unremarkable Physical Examination - Vital Signs Temperature: 97.6 F Blood Pressure: 118/76 Pulse: 96 Respirations: 17 Pulse Ox (%): 96 - Physical Exam General: Alert, In no apparent distress HEENT: Atraumatic, Normocephalic Neck: Supple, 2+ carotid pulse no bruit Respiratory: Clear to auscultation bilaterally, Normal air movement Cardiovascular: No edema, Normal pulses, Regular rate/rhythm, Normal S1 S2 Gastrointestinal: Normal bowel sounds, Soft and benign Musculoskeletal: Other (b/l arm bruises ) Neurological: Normal speech - Studies Medications List Reviewed: Yes Assessment & Plan - Problems (Diagnosis) (1) Alcohol abuse Current Visit: Yes Status: Acute (2) Bilateral humeral fractures Current Visit: Yes Status: Acute (3) Generalized weakness Current Visit: Yes Status: Acute (4) History of hypertension Current Visit: Yes Status: Acute (5) Rhabdomyolysis Current Visit: Yes Status: Resolved Qualifiers: Rhabdomyolysis type: traumatic (6) Subdural hematoma Current Visit: Yes Status: Acute (7) Traumatic brain injury Current Visit: Yes Status: Acute Discharge Plan: [facility] Plan to discharge in: Unknown - Code Status/Comfort Care Code Status Assessed: Yes Physician Review: Patient Assessed, Agree with Above Assessment and Plan Physician Review Additional Text: 01/26- no new changes -pain control, awaiting placement 01/25 - no new changes -continue plan as yesterday -continue PT for ambulation and OOB to chair -Daughter d/w 01/24 # b/l Humeral fracture - follow plan for surgery when brain hematoma resolved after 2 weeks -c/w splint # Subdural Parietal hematoma -chronic , resolving , follow repeat CT in 2 weeks prior to clearing for ortho surgery # falls - awaiting SNF placement # follow case mgt # Hypomagnesemia/hypokalemia- will replete again # Alcohol abuse - with withdrawals -improving , c/w ativan prn dc when snf bed available
[2019-01-26] MEDS: JUVEN PACKET PO SCH (20:55)
[2019-01-26 21:43] VITALS: O2SAT 95
[2019-01-27] MEDS: MORPHINE 2 MG/ML SYR IV PRN ×3 (00:25→08:09)
[2019-01-27] MEDS: HYDROCODONE/APAP 5/325 MG TAB PO PRN ×3 (02:47→12:26)
[2019-01-27 04:44] LABS: Absolute Lymphocytes (CBC) 1.8 K/uL (0.7-4.9); Hematocrit 30.7 % (39.6-49.0); Lymphocytes % 14.8 % (15.3-44.8); RBC Red Blood Cell Count 3.01 M/uL (4.33-5.43)
[2019-01-27 04:57] LABS: Albumin 2.6 g/dL (3.4-5.0); Bilirubin Total 0.5 mg/dL (0.2-1.0); Magnesium 1.8 mg/dL (1.8-2.4); Potassium 3.8 mmol/L (3.5-5.1); Protein, Total 6.1 g/dL (6.4-8.2)
[2019-01-27] MEDS ORDERED: MAGNESIUM SULFATE 1 gm IVPB 1 GM/100 ML BAG IV ONE (05:45)
[2019-01-27] MEDS ORDERED: POTASSIUM 25 MEQ EFFERV TAB PO ONE (05:45)
[2019-01-27] MEDS: NICOTINE 14 MG/PAT TD SCH (08:13)
[2019-01-27] MEDS: DOCUSATE NA 100 MG CAP PO SCH (08:13)
[2019-01-27] MEDS: JUVEN PACKET PO SCH (08:13)
[2019-01-27] MEDS: PANTOPRAZOLE 40MG TABLET PO SCH (08:13)
[2019-01-27] MEDS: FOLIC ACID 1 MG, MULTIVITAMINS INJ 10 ML, THIAMINE HCL 100 MG in NA CHLORIDE 0.9% 1,000 ML IV SCH (09:27)
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
[2019-01-27 12:20] VITALS: BP 119/74; TEMP 97.6
[2019-01-27] MEDS ORDERED: PNEUMOCOCCAL VACCINE 0.5 ML IMVAC ONE (13:00)
[2019-01-27] MEDS ORDERED: INFLUENZA VACCINE (for 3y+) 0.5 ML DOSE IMVAC ONE (13:00)
== END 2019-01-27 12:41 | DRG 82 ==
LOC: ER 09:09 → ERHOLD 14:23 → 4TH 16:19
PROVIDERS: ADMIT Family Medicine; ATTEND Internal Medicine
DX: S06.5X9A Traumatic subdural hemorrhage with loss of consciousness of unspecified duration, initial encounter (principal); G93.41 Metabolic encephalopathy; S42.202A Unspecified fracture of upper end of left humerus, initial encounter for closed fracture; S42.201A Unspecified fracture of upper end of right humerus, initial encounter for closed fracture; M62.82 Rhabdomyolysis; F10.239 Alcohol dependence with withdrawal, unspecified; F17.210 Nicotine dependence, cigarettes, uncomplicated; J44.9 Chronic obstructive pulmonary disease, unspecified; I10 Essential (primary) hypertension; I25.10 Atherosclerotic heart disease of native coronary artery without angina pectoris; E83.42 Hypomagnesemia; E87.6 Hypokalemia; K21.9 Gastro-esophageal reflux disease without esophagitis; K25.9 Gastric ulcer, unspecified as acute or chronic, without hemorrhage or perforation; F10.229 Alcohol dependence with intoxication, unspecified; R29.706 NIHSS score 6; W19.XXXA Unspecified fall, initial encounter
CPT/HCPCS: 36415; 70450; 70544; 70551; 71045; 71250; 72125; 72170; 74230; 80048; 80053; 80076; 80307; 80320; 80329; 81003; 81015; 82140; 82550; 82553; 82607; 82746; 82947; 83735; 84100; 84443; 85025; 85610; 85730; 87040; 90471; 90670; 92526; 92610; 92611; 93005; 93880; 95819; 96365; 96366; 97110; 97161; 97530; 97760; 99285; C9113; J0696; J2270; J3411; J3475; J7030; J7040; Q2035; Q9967

== ENCOUNTER 2019-01-29 21:30 | Emergency (ER) | payer OTHER ==
[2019-01-29 22:01] LABS: Absolute Lymphocytes (CBC) 1.6 K/uL (0.7-4.9); Basophils % 0.8 % (0-1.3); Hematocrit 32.1 % (39.6-49.0); Lymphocytes % 11.7 % (15.3-44.8); MPV 8.4 fL (7.6-11.3); RBC Red Blood Cell Count 3.17 M/uL (4.33-5.43)
[2019-01-29 22:05] LABS: Protime INR 1.08
--- NOTE | 2019-01-29 22:13 | RAD REPORT ---
EXAM DESCRIPTION: Dm Single View01/29/2019 10:06 pm CLINICAL HISTORY: Chest pain COMPARISON: January 19, 2019 FINDINGS: The lungs appear clear of acute infiltrate. The heart is mildly enlarged IMPRESSION: No acute abnormalities displayed
[2019-01-29 22:19] LABS: ALT/SGPT 41 U/L (12-78); AST/SGOT 18 U/L (15-37); Albumin 2.7 g/dL (3.4-5.0); Alkaline Phosphatase 148 U/L (45-117); BUN Blood Urea Nitrogen 23 mg/dL (7-18); Bicarbonate 24 mmol/L (21-32); Bilirubin Direct 0.1 mg/dL (0-0.2); Bilirubin Total 0.4 mg/dL (0.2-1.0); Glucose Level 105 mg/dL (74-106); Magnesium 2.1 mg/dL (1.8-2.4); NT PRO-BNP 258 pg/mL (<125); Potassium 4.1 mmol/L (3.5-5.1); Protein, Total 6.7 g/dL (6.4-8.2); Sodium Level 137 mmol/L (136-145); Troponin (Emerg Dept Use Only) < 0.02 ng/mL (0.0-0.045)
[2019-01-29] MEDS ORDERED: KETOROLAC 30 MG/ML INJ ONE (22:35)
[2019-01-29 22:38] LABS: Blood Morphology Comment NOT SEEN (NOT SEEN); Platelet Estimate ADEQ
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
[2019-01-30] MEDS ORDERED: TRAMADOL HCL 50 MG TAB ONE (02:27)
[2019-01-30 06:13] VITALS: BP 97/76; O2SAT 96
--- NOTE | 2019-01-30 07:07 | EKG ---
Test Date: 2019-01-29 Test Time: 21:38:13 Tyre Builder: MAYIT MEASUREMENT RESULTS: Intervals: Rate: 98 HI: 152 QRSD: 96 QT: 380 QTc: 485 [place]: P: 33 HI: 152 QRS: 57 T: 48 INTERPRETIVE STATEMENTS: Normal sinus rhythm Nonspecific ST abnormality Abnormal ECG Compared to ECG 01/22/2019 03:54:01 ST (T wave) deviation now present T-wave abnormality no longer present Electronically Signed On 01-30-19 07:06:43 PAPIER [employer]HE[employer] by Adán Aguilera
[2019-01-30 11:04] VITALS: TEMP 97.9
== END 2019-01-30 05:34 | disposition home or self-care (01) ==
LOC: ER 21:30
DX: R07.9 Chest pain, unspecified (principal); I10 Essential (primary) hypertension; K25.9 Gastric ulcer, unspecified as acute or chronic, without hemorrhage or perforation
CPT/HCPCS: 36415; 71045; 80048; 80076; 83735; 83880; 84484; 85025; 85610; 93005; 96374; 99285

== ENCOUNTER 2019-02-22 17:01 | Emergency (ER) | payer OTHER ==
--- NOTE | 2019-02-22 17:32 | RAD REPORT ---
EXAM DESCRIPTION: RAD - Chest Single View - 02/22/2019 5:26 pm CLINICAL HISTORY: CHEST PAIN Chest pain. COMPARISON: Chest Single View dated 01/29/2019; Chest Single View dated 01/19/2019; Chest Single View dated 01/07/2019; Chest Single View dated 10/03/2018 FINDINGS: Portable technique limits examination quality. Emphysematous changes are present with small linear opacity in the right mid lung likely subsegmental atelectasis. The lungs are otherwise grossly clear. The heart is mildly enlarged in size. No displac ed fractures.
[2019-02-22 17:48] LABS: Absolute Lymphocytes (CBC) 2.2 K/uL (0.7-4.9); Basophils % 1.4 % (0-1.3); Hematocrit 34.3 % (39.6-49.0); Lymphocytes % 21.6 % (15.3-44.8); MPV 8.2 fL (7.6-11.3); RBC Red Blood Cell Count 3.71 M/uL (4.33-5.43)
[2019-02-22 17:49] LABS: Protime INR 1.1
[2019-02-22 18:08] LABS: ALT/SGPT 33 U/L (12-78); AST/SGOT 17 U/L (15-37); Alkaline Phosphatase 116 U/L (45-117); BUN Blood Urea Nitrogen 17 mg/dL (7-18); Bicarbonate 24 mmol/L (21-32); Bilirubin Direct < 0.1 mg/dL (0-0.2); Bilirubin Total 0.3 mg/dL (0.2-1.0); Glucose Level 95 mg/dL (74-106); Magnesium 1.6 mg/dL (1.8-2.4); NT PRO-BNP 54 pg/mL (<125); Protein, Total 6.6 g/dL (6.4-8.2); Sodium Level 137 mmol/L (136-145); Troponin (Emerg Dept Use Only) < 0.02 ng/mL (0.0-0.045)
[2019-02-22] MEDS ORDERED: MAGNESIUM SULFATE 1 gm IVPB 1 GM/100 ML BAG IV ONE (18:56)
--- NOTE | 2019-02-22 20:22 | RAD REPORT ---
EXAM DESCRIPTION: RAD - Humerus Right - 02/22/2019 8:11 pm CLINICAL HISTORY: PAIN COMPARISON: Humerus Left dated 02/22/2019; Chest Single View dated 02/22/2019; Chest Single View dated 04/01/2018; Shoulder Right 2 View dated 01/19/2019; Shoulder Left 2 View dated 01/19/2019; Head C Spin e Cap Wo Con dated 01/19/2019 FINDINGS: Proximal right humeral fracture again seen without evidence of a new fracture on today's s tudy.
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
--- NOTE | 2019-02-22 22:15 | ER ---
Nurse's Notes [facility] Name: Mega Farnsworth Age: 68 yrs Sex: Male : 1950 Arrival Date: 02/22/2019 Time: 17:02 Bed 7 Private MD: Diagnosis: Chest pain, unspecified Presentation: 02/22 17:03 Presenting complaint: EMS states: L sided chest pressure that began approx 2-3 hours ph ago, assisted staff administered nitro x and Ativan 2mg, pt states that pain decreased from 10/10 to 9/10, pt hypotensive upon EMS arrival, 18 G IV to RFA, 250 NS given. Transition of care: patient was not received from another setting of care. Onset of symptoms was February 22, 2019. Risk Assessment: Do you want to hurt yourself or someone else? Patient reports no desire to harm self or others. Initial Sepsis Screen: Does the patient meet any 2 criteria? Does the patient have a suspected source of infection? No. Patient's initial sepsis screen is negative. Care prior to arrival: Medication(s) given: Normal saline infusion, 250 mL IV initiated. 18 GA, in the right forearm. 17:03 Method Of Arrival: EMS: [facility] ph 17:03 Acuity: DOMENICO 2 ph Historical: - Allergies: 17:14 NKDA; ph - Home Meds: 17:14 lorazepam 0.5 mg oral tab 2 times per day [Active]; nicotine 7 mg/24 hr TD pt24 1 patch ph once daily [Active]; Cymbalta 30 mg oral cpDR 1 cap once daily [Active]; Enulose 10 gram/15 mL oral soln 30 mL daily [Active]; melatonin 3 mg Oral tab nightly [Active]; atorvastatin 20 mg oral tab 1 tab once daily [Active]; tramadol 50 mg Oral tab 1 tab every 6 hours [Active]; icosapent ethyl oral oral 1 caps 2 times per day [Active]; lisinopril 10 mg oral tab 1 tab once daily [Active]; omeprazole 40 mg Oral cpDR 1 cap once daily [Active]; albuterol sulfate 2.5 mg /3 mL (0.083 %) Nebulizer nebu 3 mL every 6 hours [Active]; nitroglycerin 0.4 mg SL subl 1 tab every 5 minutes [Active]; - PMHx: 17:14 Anxiety; COPD; Drug and Alcohol abuse; Hypertension; Ulcers; CVA; ph - Immunization history:: Adult Immunizations up to date. - Social history:: Smoking status: Patient uses tobacco products, smokes one-half pack cigarettes per day. - Ebola Screening: : No symptoms or risks identified at this time. Screenin:15 Abuse screen: Denies threats or abuse. Denies injuries from another. Nutritional ph screening: No deficits noted. Tuberculosis screening: No symptoms or risk factors identified. Fall Risk None identified. Assessment: 17:16 General: Appears in no apparent distress. comfortable, Behavior is calm, cooperative, ph appropriate for age. Pain: Complains of pain in anterior aspect of left upper chest Pain does not radiate. Pain currently is 9 out of 10 on a pain scale. Pain began 3 hours ago. Neuro: Level of Consciousness is awake, alert, obeys commands, Oriented to person, place, time, situation. Cardiovascular: Reports chest pain, shortness of breath, Denies nausea, vomiting, Capillary refill < 3 seconds in bilateral fingers Patient's skin is warm and dry. Rhythm is sinus rhythm. Respiratory: Airway is patent Respiratory effort is even, unlabored, Respiratory pattern is regular, symmetrical. Derm: Skin is fragile, is thin, Skin is pink, warm \T\ dry. Musculoskeletal: Circulation, motion, and sensation intact. Range of motion: limited in left shoulder. 18:04 Reassessment: Patient appears in no apparent distress at this time. Patient and/or family updated on plan of care and expected duration. Pain level reassessed. Patient is alert, oriented x 3, equal unlabored respirations, skin warm/dry/pink. Pt resting comfortably w/ eyes closed, BP improving, now 104/69, daughter at bedside, awaiting lab results. 18:45 Reassessment: Patient appears in no apparent distress at this time. No changes from previously documented assessment. Patient and/or family updated on plan of care and expected duration. Pain level reassessed. Patient is alert, oriented x 3, equal unlabored respirations, skin warm/dry/pink. 19:07 Reassessment: Patient is alert, oriented x 3, equal unlabored respirations, skin bb warm/dry/pink. pt resting quietly, IV site intact, patent with fluids infusing, family at bedside awaiting diagnostic results and repeat cardiac enzymes. 20:28 Reassessment: Patient is alert, oriented x 3, equal unlabored respirations, skin bb warm/dry/pink. IV site, intact, patent with fluids infusing. 21:54 Reassessment: pt appears to be sleeping eyes closed, resp unlabored, IV site intact bb with no erythema or edema noted, awaiting repeat cardiac enzymes. 22:42 Reassessment: pt resting quietly awaiting transportation back to [facility] A med bb called and in route ETA 45 minutes. 23:40 Reassessment: Patient is alert, oriented x 3, equal unlabored respirations, skin bb warm/dry/pink. pt instructed on discharge instructions [facility] at bedside for transportation to [facility]. Vital Signs: 17:08 BP 88 / 47; Pulse 88; Resp 18; Temp 97.3; Pulse Ox 98% on R/A; Weight 79.38 kg; ph 17:44 BP 97 / 69; Pulse 87; Resp 22; Pulse Ox 99% on R/A; tw2 18:05 BP 104 / 69; Pulse 81; Resp 18; Pulse Ox 97% on R/A; ph 18:45 BP 96 / 67; Pulse 87; Resp 18; Pulse Ox 97% on R/A; ph 19:13 BP 94 / 69; Pulse 89; Resp 20 S; Pulse Ox 95% on R/A; bb 20:29 BP 92 / 65; Pulse 85; Resp 14 S; Pulse Ox 92% on R/A; bb 21:55 BP 95 / 65; Pulse 81; Resp 14 S; Pulse Ox 95% on R/A; bb 22:43 BP 96 / 70; Pulse 86; Resp 14 S; Pulse Ox 99% on R/A; bb 23:41 BP 99 / 80; Pulse 86; Resp 21 S; Temp 97.9(TE); Pulse Ox 96% on R/A; bb ED Course: 17:02 Patient arrived in ED. ph 17:05 Senthil Mathews NP is PHCP. pm1 17:05 Gustavo Marquez MD is Attending Physician. pm1 17:08 Triage completed. ph 17:17 Patient has correct armband on for positive identification. Bed in low position. Call ph light in reach. Side rails up X2. guide foreign tour on. Pulse ox on. NIBP on. Door closed. Noise minimized. Warm blanket given. 17:17 Arm band placed on Patient placed in an exam room, on a stretcher. ph 17:18 Alanna Olivares RN is Primary Nurse. ph 17:31 XRAY Chest (1 view) In Process Unspecified. EDMS 17:42 EKG done, by ED staff, reviewed by Senthil Mathews NP. jd2 17:44 Patient maintains SpO2 saturation greater than 95% on room air. tw2 20:11 Humerus Left XRAY In Process Unspecified. EDMS 20:12 Humerus Right XRAY In Process Unspecified. EDMS 21:35 Repeat lab(s) drawn. by me, sent to lab. bb 23:42 No provider procedures requiring assistance completed. IV discontinued, intact, bb bleeding controlled, No redness/swelling at site. Pressure dressing applied. Administered Medications: 17:30 Drug: NS 0.9% 1000 ml Route: IV; Rate: 1000 ml; Site: right forearm; ph 19:09 Follow up: Response: No adverse reaction; IV Status: Completed infusion; IV Intake: ph 1000ml 19:09 Drug: Magnesium Sulfate 1 grams Route: IVPB; Infused Over: 1 hrs; Site: right forearm; ph 20:10 Follow up: IV Status: Completed infusion; IV Intake: 100ml bb Intake: 19:09 IV: 1000ml; Total: 1000ml. ph 20:10 IV: 100ml; Total: 1100ml. bb Outcome: 22:13 Discharge ordered by . pm1 23:42 Transferred by ground EMS bb 23:42 Condition: stable 23:42 Discharge instructions given to patient, Instructed on discharge instructions, follow up and referral plans. Demonstrated understanding of instructions, follow-up care. 23:43 Patient left the ED. bb Signatures: Dispatcher [employer] EDMS Paige Del Valle RN RN bb Alanna Olivares, Senthil Cordova RN, ph, NP [employer]IT[employer]ER pm1 Svetlana Sierra RN RN tw2 Leighton Martin jd2
--- NOTE | 2019-02-22 22:16 | EDPHYS ---
Physician Documentation [facility] Name: Mega Farnsworth Age: 68 yrs Sex: Male : 1950 Arrival Date: 02/22/2019 Time: 17:02 Bed 7 Private MD: ED Physician Gustavo Marquez HPI: 02/22 17:26 This 68 yrs old Male presents to ER via EMS with complaints of Chest Pain. pm1 17:26 The patient or guardian reports chest pain that is located primarily in the anterior pm1 aspect of left upper chest. Onset: Present since accident on 01/19/2019 that resulted in bilateral humerus fractures. The pain does not radiate. Associated signs and symptoms: The patient has no apparent associated signs or symptoms, Pertinent negatives: abdominal pain, cough, diaphoresis, dizziness, headache, nausea, palpitations, shortness of breath, vomiting. The chest pain is described as sharp. Duration: The patient or guardian reports a single episode, that is still ongoing. The patient has experienced similar episodes in the past, chronically, and the symptoms today are exactly the same. Historical: - Allergies: 17:14 NKDA; ph - Home Meds: 17:14 lorazepam 0.5 mg oral tab 2 times per day [Active]; nicotine 7 mg/24 hr TD pt24 1 patch ph once daily [Active]; Cymbalta 30 mg oral cpDR 1 cap once daily [Active]; Enulose 10 gram/15 mL oral soln 30 mL daily [Active]; melatonin 3 mg Oral tab nightly [Active]; atorvastatin 20 mg oral tab 1 tab once daily [Active]; tramadol 50 mg Oral tab 1 tab every 6 hours [Active]; icosapent ethyl oral oral 1 caps 2 times per day [Active]; lisinopril 10 mg oral tab 1 tab once daily [Active]; omeprazole 40 mg Oral cpDR 1 cap once daily [Active]; albuterol sulfate 2.5 mg /3 mL (0.083 %) Nebulizer nebu 3 mL every 6 hours [Active]; nitroglycerin 0.4 mg SL subl 1 tab every 5 minutes [Active]; - PMHx: 17:14 Anxiety; COPD; Drug and Alcohol abuse; Hypertension; Ulcers; CVA; ph - Immunization history:: Adult Immunizations up to date. - Social history:: Smoking status: Patient uses tobacco products, smokes one-half pack cigarettes per day. - Ebola Screening: : No symptoms or risks identified at this time. ROS: 17:26 Constitutional: Negative for fever, chills, and weight loss. pm1 17:26 Respiratory: Negative for shortness of breath, cough, wheezing, and pleuritic chest pain, Abdomen/GI: Negative for abdominal pain, nausea, vomiting, diarrhea, and constipation, Back: Negative for injury and pain. 17:26 Skin: Negative for injury, rash, and discoloration, Neuro: Negative for headache, weakness, numbness, tingling, and seizure. 17:26 Cardiovascular: Positive for chest pain, Negative for edema, orthopnea, palpitations. 17:26 MS/extremity: Positive for decreased range of motion, pain, of the left shoulder, Negative for swelling. 17:26 All other systems are negative. Exam: 17:26 Constitutional: This is a well developed, well nourished patient who is awake, alert, pm1 and in no acute distress. Head/Face: Normocephalic, atraumatic. Neck: Trachea midline, no thyromegaly or masses palpated, and no cervical lymphadenopathy. Supple, full range of motion without nuchal rigidity, or vertebral point tenderness. No Meningismus. Chest/axilla: Normal chest wall appearance and motion. Nontender with no deformity. No lesions are appreciated. Cardiovascular: Regular rate and rhythm with a normal S1 and S2. No gallops, murmurs, or rubs. Normal PMI, no JVD. No pulse deficits. Respiratory: Lungs have equal breath sounds bilaterally, clear to auscultation and percussion. No rales, rhonchi or wheezes noted. No increased work of breathing, no retractions or nasal flaring. Abdomen/GI: Soft, non-tender, with normal bowel sounds. No distension or tympany. No guarding or rebound. No evidence of tenderness throughout. Back: No spinal tenderness. No costovertebral tenderness. Full range of motion. Skin: Warm, dry with normal turgor. Normal color with no rashes, no lesions, and no evidence of cellulitis. 17:26 Musculoskeletal/extremity: Extremities: grossly normal except: noted in the left shoulder: decreased ROM, tenderness, Circulation is intact in all extremities. Sensation intact. 17:26 Neuro: Orientation: is normal, Motor: is normal, moves all fours. Vital Signs: 17:08 BP 88 / 47; Pulse 88; Resp 18; Temp 97.3; Pulse Ox 98% on R/A; Weight 79.38 kg; ph 17:44 BP 97 / 69; Pulse 87; Resp 22; Pulse Ox 99% on R/A; tw2 18:05 BP 104 / 69; Pulse 81; Resp 18; Pulse Ox 97% on R/A; ph 18:45 BP 96 / 67; Pulse 87; Resp 18; Pulse Ox 97% on R/A; ph 19:13 BP 94 / 69; Pulse 89; Resp 20 S; Pulse Ox 95% on R/A; bb 20:29 BP 92 / 65; Pulse 85; Resp 14 S; Pulse Ox 92% on R/A; bb 21:55 BP 95 / 65; Pulse 81; Resp 14 S; Pulse Ox 95% on R/A; bb 22:43 BP 96 / 70; Pulse 86; Resp 14 S; Pulse Ox 99% on R/A; bb 23:41 BP 99 / 80; Pulse 86; Resp 21 S; Temp 97.9(TE); Pulse Ox 96% on R/A; bb MDM: 17:05 Patient medically screened. pm1 17:14 ED course: Daughter with POA called the ER with request to not give any narcotic pm1 medications to the patient. 19:16 ED course: Patient's daughter who is power of finance attorney requests bilateral humeral pm1 X-rays. Patient has bilateral displaced proximal fractures that have not been reevaluated since 01/19/2019. She does not want the patient to be given any narcotics in the ER. She believes that he has learned that if he comes to the ER with complaints of chest pain that he will get narcotics. He has had a long history of drug abuse and alcohol abuse that has been addressed and she does not want him to revert to addiction. 21:32 Data reviewed: vital signs. pm1 22:12 Data interpreted: Pulse oximetry: on room air is 95 %. Interpretation: normal. pm1 Counseling: I had a detailed discussion with the patient and/or guardian regarding: the historical points, exam findings, and any diagnostic results supporting the discharge/admit diagnosis, lab results, radiology results, the need for outpatient follow up, to return to the emergency department if symptoms worsen or persist or if there are any questions or concerns that arise at home. 22:31 ED course: Discussed lab and radiology findings with Lupe Montiel his POA. Patient with pm1 three negative troponin in the ER with two greater than 4 hours apart. I believe that patient's pain is chronic musculoskeletal pain related to his fall injury and resulting bilateral displaced proximal humeral fractures that were not repaired. The patient was not a surgical candidate due to his alcoholism per daughter. I will discharge the patient back to intermediate by ambulance service. Patient is unable to ambulate or bear weight with his arms without assistance. At the intermediate the patient has tramadol for his chronic pain. 02/22 17:05 Order name: Basic Metabolic Panel; Complete Time: 18:29 pm02/22 17:05 Order name: CBC with Diff; Complete Time: 17:57 pm02/22 17:05 Order name: LFT's; Complete Time: 18:29 pm02/22 17:05 Order name: Magnesium; Complete Time: 18:29 pm02/22 17:05 Order name: NT PRO-BNP; Complete Time: 18:29 pm02/22 17:05 Order name: PT-INR; Complete Time: 17:57 pm02/22 17:05 Order name: Troponin (emerg Dept Use Only); Complete Time: 18:29 pm02/22 17:05 Order name: XRAY Chest (1 view); Complete Time: 17:36 pm02/22 19:15 Order name: Humerus Left XRAY; Complete Time: 20:26 pm02/22 19:15 Order name: Humerus Right XRAY; Complete Time: 20:26 pm02/22 20:29 Order name: Troponin (emerg Dept Use Only): Draw at 2130; Complete Time: 21:17 pm02/22 21:32 Order name: Troponin (emerg Dept Use Only); Complete Time: 22:14 pm02/22 17:05 Order name: EKG; Complete Time: 17:07 pm02/22 17:05 Order name: Cardiac monitoring; Complete Time: 17:41 pm02/22 17:05 Order name: EKG - Nurse/Tech; Complete Time: 17:41 pm02/22 17:05 Order name: IV Saline Lock; Complete Time: 17:41 pm1 02/22 17:05 Order name: Labs collected and sent; Complete Time: 17:41 pm1 02/22 17:05 Order name: O2 Per Protocol; Complete Time: 17:41 pm1 02/22 17:05 Order name: O2 Sat Monitoring; Complete Time: 17:43 pm1 Administered Medications: 17:30 Drug: NS 0.9% 1000 ml Route: IV; Rate: 1000 ml; Site: right forearm; ph 19:09 Follow up: Response: No adverse reaction; IV Status: Completed infusion; IV Intake: ph 1000ml 19:09 Drug: Magnesium Sulfate 1 grams Route: IVPB; Infused Over: 1 hrs; Site: right forearm; ph 20:10 Follow up: IV Status: Completed infusion; IV Intake: 100ml bb Disposition: 02/23 09:49 Co-signature as Attending Physician, Gustavo Marquez MD I agree with the assessment and stephanie plan of care. Disposition: 02/22/19 22:13 Discharged to Home. Impression: Chest pain, unspecified. - Condition is Stable. - Discharge Instructions: Nonspecific Chest Pain. - Medication Reconciliation Form, Thank You Letter, Antibiotic Education, Prescription Opioid Use, SBAR form form. - Follow up: Emergency Department; When: As needed; Reason: Worsening of condition. Follow up: Private Physician; When: 2 - 3 days; Reason: Recheck today's complaints, Continuance of care, Re-evaluation by your physician. - Problem is new. - Symptoms have improved. Signatures: Dispatcher [employer] Gustavo Ojeda MD MD cha Ballard, Brenda RN RN Alanna Whitley RN RN ph Marinas, Patrick, [employer] pm1 Corrections: (The following items were deleted from the chart) 02/22 23:43 22:13 02/22/2019 22:13 Discharged to Home. Impression: Chest pain, unspecified. bb Condition is Stable. Discharge Instructions: Nonspecific Chest Pain. Forms are Medication Reconciliation Form, Thank You Letter, Antibiotic Education, Prescription Opioid Use. Follow up: Emergency Department; When: As needed; Reason: Worsening of condition. Follow up: Private Physician; When: 2 - 3 days; Reason: Recheck today's complaints, Continuance of care, Re-evaluation by your physician. Problem is new. Symptoms have improved. pm1
[2019-02-23 01:14] VITALS: BP 99/80; TEMP 97.9; O2SAT 96
--- NOTE | 2019-02-24 16:43 | EKG ---
Test Date: 2018-02-22 Test Time: 17:26:58 Gasateria Attendant: LULA MEASUREMENT RESULTS: Intervals: Rate: 86 IN: 162 QRSD: 98 QT: 372 QTc: 445 [place]: P: 17 IN: 162 QRS: 35 T: -11 INTERPRETIVE STATEMENTS: Normal sinus rhythm Moderate voltage criteria for LVH, may be normal variant Possible Inferior infarct, age undetermined Abnormal ECG Cardioserver Error - Incorrect date on EKG This EKG was performed on 02-22-2019 Compared to ECG 01/22/2018 10:59:00 Left ventricular hypertrophy now present Myocardial infarct finding now present Electronically Signed On 02-24-19 16:41:09 [employer]ED GOODS INSPECTOR TRIMMER by Adán Aguilera
== END 2019-02-22 23:43 | disposition home or self-care (01) ==
LOC: ER 17:01
DX: R07.9 Chest pain, unspecified (principal); I10 Essential (primary) hypertension; J44.9 Chronic obstructive pulmonary disease, unspecified; F17.210 Nicotine dependence, cigarettes, uncomplicated
CPT/HCPCS: 96365; 96361; 93005; 85025; 80048; 36415; 83735; 85610; 80076; 84484 ×3; 83880; 71045; 73060 ×2; 99285; J3475

== ENCOUNTER 2019-05-06 00:43 | Emergency (ER) | payer OTHER ==
--- OUTSIDE RECORDS SUMMARY | 2019-05-06 00:45 | XMS REPORT ---
:1950 Author Organization e[employer] Care Team Providers Name Role Phone Garrett Fulton Provider Role Unavailable Allergies No Known Allergies Problems No Known Problems Medications No Known Medications Results No Known Results Summary Purpose eClinicalWorks Submission
--- OUTSIDE RECORDS SUMMARY | 2019-05-06 00:46 | XMS REPORT ---
:1950 Author Organization [employer] Care Team Providers Name Role Phone Garrett Fulton Provider Role Unavailable Allergies, Adverse Reactions, Alerts Substance Reaction Event Type N.K.D.A. Info Not Available Non Drug Allergy Problems Problem Type Condition Code Onset Dates Condition Status Assessment Acute pain of right shoulder M25.511 Active Assessment Acute pain of left shoulder M25.512 Active Assessment Other closed nondisplaced fracture S42.294A Active of proximal end of right humerus, initial encounter Assessment Other closed nondisplaced fracture S42.295A Active of proximal end of left humerus, initial encounter Medications Medication Code Code Instructions Start End Status Dosage System Date Date Lisinopril [facility] 35397944267 10 MG Orally Feb 25, Active 1 tablet Once a day 2019 Icosapent Ethyl [facility] [address]-01 1 GM Orally Feb 25, Active 2 capsules Twice a day 2019 with meals Atorvastatin ND 41532830279 20 MG Orally Feb 25, Active 1 tablet Calcium Once a day 2019 Melatonin ND 31500115968 3 MG Orally Feb 25, Active 1 tablet Once a day 2019 at bedtime as needed Lorazepam ND 39947510614 0.5 MG Orally Feb 25, Active 1 tablet every 6 hrs 2020 as needed albuterol NDC 0 Oral Feb 25, Active 1 tab 2020 Enulose [facility] 87183322174 10 GM/15ML Feb 25, Active 15 ml Orally Once a 2020 day Omeprazole ND 34765080556 40 MG Orally Feb 25, Active 1 capsule Once a day 2019 30 minutes before morning meal Nitroglycerin ND 03345729663 0.4 MG Feb 25, Active as Sublingual 2020 directed Tramadol HCl ND 01313194011 50 MG Orally Feb 25, Active 1 tablet every 6 hrs 2020 as needed Cymbalta ND 81153125743 30 MG Orally Feb 25, Active 1 capsule Once a day 2019 Results No Known Results Summary Purpose eClinicalWorks Submission
--- OUTSIDE RECORDS SUMMARY | 2019-05-06 00:46 | XMS REPORT ---
:1950 Author Organization [employer] Care Team Providers Name Role Phone Fulton Garrett Provider Role Unavailable Allergies No Known Allergies Problems Problem Type Condition Code Onset Dates Condition Status Assessment Other closed nondisplaced fracture S42.295A Active of proximal end of left humerus, initial encounter Assessment Other closed nondisplaced fracture S42.294A Active of proximal end of right humerus, initial encounter Medications No Known Medications Results No Known Results Summary Purpose eClinicalWorks Submission
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
[2019-05-06] MEDS ORDERED: TETANUS & DIPHTHERIA TOX,ADULT 0.5 ML VIAL ONE (01:15)
[2019-05-06] MEDS ORDERED: HYDROCODONE/APAP 7.5/325 MG TAB ONE (01:15)
--- NOTE | 2019-05-06 02:34 | ER ---
Nurse's Notes [facility] Name: Mega Farnsworth Age: 68 yrs Sex: Male : 1950 Arrival Date: 05/06/2019 Time: 00:53 Bed 7 Private MD: Diagnosis: Fall from bed;Abrasion of scalp-from fall;Pain in right shoulder-from fall Presentation: 05/05 00:54 Chief complaint: EMS states: patient sleeping on the bed, rolled out and fell on his rv right side. complaining of headache and right shoulder pain. with history of previous fracture on both shoulders, scheduled for surgery this May. pain scale of 10/10. denies LOC, visual disturbance, dizziness. Coronavirus screen: The patient has NOT traveled to a country currently being monitored by the CDC within the last 14 days. Proceed with normal triage procedures. The patient has NOT had contact with any known and/or suspected case of coronavirus. Proceed with normal triage procedures. Ebola Screen: No symptoms or risks identified at this time. Initial Sepsis Screen: Does the patient meet any 2 criteria? No. Patient's initial sepsis screen is negative. Does the patient have a suspected source of infection? No. Patient's initial sepsis screen is negative. Risk Assessment: Do you want to hurt yourself or someone else? Patient reports no desire to harm self or others. 00:54 Method Of Arrival: EMS: [facility] rv 00:54 Acuity: DOMENICO 4 rv 00:59 Onset of symptoms was May 06, 2019 at 00:30. rv Historical: - Allergies: 00:57 NKDA; rv - PMHx: 00:57 Anxiety; COPD; CVA; Drug and Alcohol abuse; Hypertension; Ulcers; rv - PSHx: 00:57 Unable to obtain; rv - Immunization history:: Adult Immunizations up to date, Last tetanus immunization: unknown. - Social history:: Smoking status: Patient/guardian denies using tobacco, Stopped _ months ago 3. Screenin:58 Abuse screen: Denies threats or abuse. Denies injuries from another. Nutritional rv screening: No deficits noted. Tuberculosis screening: No symptoms or risk factors identified. Fall Risk None identified. Assessment: 00:57 General: Appears in no apparent distress. Behavior is calm, cooperative. Pain: rv Complains of pain in both shoulders. Pain: Pain currently is 10 out of 10 on a pain scale. Neuro: Level of Consciousness is awake, alert, obeys commands, Oriented to person, place, time, situation. Neuro: Denies blurred vision dizziness, diplopia. Cardiovascular: Patient's skin is warm and dry. Respiratory: Airway is patent. Vital Signs: 00:54 BP 101 / 71; Pulse 85; Resp 17; Temp 98.5(O); Pulse Ox 98% on R/A; Weight 74.84 kg; rv Height 5 ft. 8 in. (172.72 cm); Pain 10/10; 03:27 BP 102 / 63; Pulse 84; Resp 16; Pulse Ox 98% on R/A; rv 00:54 Body Mass Index 25.09 (74.84 kg, 172.72 cm) rv ED Course: 00:53 Patient arrived in ED. lp1 00:54 Hung Tripp, STEVO is Primary Nurse. rv 00:56 Triage completed. rv 00:57 Arm band placed on Patient placed Patient notified of wait time. rv 00:59 Patient has correct armband on for positive identification. Pulse ox on. NIBP on. rv 01:01 Gustavo Angeles PA is PHCP. cp 01:01 Mikel Humphreys MD is Attending Physician. cp 01:56 CT Head C Spine In Process Unspecified. EDMS 02:11 XRAY Humerus RIGHT In Process Unspecified. EDMS 03:27 Sling applied to right arm. rv 03:27 No provider procedures requiring assistance completed. Patient did not have IV access rv during this emergency room visit. Administered Medications: 01:15 Drug: Tetanus-Diphtheria Toxoid Adult 0.5 ml {Electrolytic Etcher: [employer]. Exp: rv 03/05/2021. Lot #: [id number]. } Route: IM; Site: left deltoid; 03:25 Follow up: Response: No adverse reaction rv 01:15 Drug: Hydrocodone-Acetaminophen (7.5 mg-325 mg) 1 tabs {Note: rass 0.} Route: PO; rv 03:25 Follow up: Response: No adverse reaction rv 03:26 Follow up: Response: RASS: Alert and Calm (0) rv 03:26 Drug: traMADol 50 mg {Note: rass 0.} Route: PO; rv 03:27 Follow up: Response: Medication administered at discharge. rv Outcome: 02:33 Discharge ordered by . rolan 03:28 Discharged to [facility]. Transfer form completed. via taxi rv 03:28 Condition: good 03:28 Discharge instructions given to patient, Instructed on discharge instructions, follow up and referral plans. Demonstrated understanding of instructions, follow-up care. 03:28 Patient left the ED. rv Signatures: Dispatcher [employer] EDBrittany Werner RN RN lp1 Gustavo Angeles PA PA cp Vicente, Ronaldo RN RN rv
--- NOTE | 2019-05-06 02:34 | EDPHYS ---
Physician Documentation [facility] Name: Mega Farnsworth Age: 68 yrs Sex: Male : 1950 Arrival Date: 05/06/2019 Time: 00:53 Bed 7 Private MD: ED Physician Mikel Humphreys HPI: 05/05 01:10 This 68 yrs old Male presents to ER via EMS with complaints of Fall from bed. cp 01:10 Details of fall: The patient fell from a supine position, out of bed, and struck furniture and hard floor. 01:10 Onset: The symptoms/episode began/occurred just prior to arrival. Associated injuries: cp The patient sustained injury to the head, abrasion, right upper arm, painful injury. Historical: - Allergies: 00:57 NKDA; rv - PMHx: 00:57 Anxiety; COPD; CVA; Drug and Alcohol abuse; Hypertension; Ulcers; rv - PSHx: 00:57 Unable to obtain; rv - Immunization history:: Adult Immunizations up to date, Last tetanus immunization: unknown. - Social history:: Smoking status: Patient/guardian denies using tobacco, Stopped _ months ago 3. ROS: 01:15 Constitutional: Negative for fever, poor PO intake. cp 01:15 Neck: Negative for pain with movement, pain at rest, stiffness. 01:15 Cardiovascular: Negative for chest pain. 01:15 Respiratory: Negative for cough, shortness of breath, wheezing. 01:15 Abdomen/GI: Negative for abdominal pain, vomiting, diarrhea, constipation. 01:15 MS/extremity: Positive for pain, of the right upper arm, Negative for deformity. 01:15 Skin: Positive for abrasion(s), of the scalp. 01:15 Neuro: Negative for altered mental status. 01:15 All other systems are negative. Exam: 01:22 Constitutional: The patient appears in no acute distress, alert, awake, cp non-diaphoretic, non-toxic, well developed, well nourished. 01:22 Head/face: Noted is abrasion(s), that are mild, of the top of head, swelling, that is cp mild, of the top of head, tenderness, that is mild, of the top of head. 01:22 Eyes: Periorbital structures: appear normal, Pupils: equal, round, and reactive to light and accomodation, Extraocular movements: intact throughout, Conjunctiva: normal, no exudate, no injection, Lids and lashes: appear normal, bilaterally. 01:22 ENT: External ear(s): are unremarkable, Ear canal(s): are normal, clear, TM's: bulging, is not appreciated, bilaterally, dullness, bilaterally, erythema, is not appreciated, bilaterally, Nose: is normal, Mouth: Lips: moist, Oral mucosa: pink and intact, moist, Posterior pharynx: is normal, airway is patent, no erythema, no exudate. 01:22 Neck: C-spine: vertebral tenderness, is not appreciated, crepitus, is not appreciated, ROM/movement: pain, is not appreciated, limited range of motion, is not appreciated. 01:22 Chest/axilla: Inspection: normal, Palpation: is normal, no crepitus, no tenderness. 01:22 Cardiovascular: Rate: normal, Rhythm: regular, JVD: is not appreciated. 01:22 Respiratory: the patient does not display signs of respiratory distress, Respirations: normal, no use of accessory muscles, no retractions, labored breathing, is not present, Breath sounds: are clear throughout, no decreased breath sounds. 01:22 Abdomen/GI: Inspection: abdomen appears normal, Bowel sounds: active, all quadrants, Palpation: abdomen is soft and non-tender, in all quadrants. 01:22 Back: pain, is absent, ROM is normal, vertebral tenderness, is not appreciated. 01:22 Musculoskeletal/extremity: Extremities: grossly normal except: noted in the right upper arm: pain, tenderness, There is no evidence of deformity, ROM: limited passive range of motion due to pain, in the right shoulder, Pulses: noted to be 2+ in the right radial artery and left radial artery, Perfusion: the extremity is normally perfused throughout, Sensation intact. 01:22 Neuro: Orientation: to person, place \T\ time. Mentation: is normal, Motor: moves all fours, strength is normal. Vital Signs: 00:54 BP 101 / 71; Pulse 85; Resp 17; Temp 98.5(O); Pulse Ox 98% on R/A; Weight 74.84 kg; rv Height 5 ft. 8 in. (172.72 cm); Pain 10/10; 03:27 BP 102 / 63; Pulse 84; Resp 16; Pulse Ox 98% on R/A; rv 00:54 Body Mass Index 25.09 (74.84 kg, 172.72 cm) rv MDM: 01:07 Patient medically screened. cp 01:25 Differential diagnosis: closed head injury, contusion, fracture, laceration, multiple cp trauma. 02:32 Data reviewed: vital signs, nurses notes, radiologic studies, CT scan, plain films, and cp as a result, I will discharge patient. 02:32 Test interpretation: by ED physician or midlevel provider: plain radiologic studies, cp xrays of right humerus negative for acute fracture. Counseling: I had a detailed discussion with the patient and/or guardian regarding: the historical points, exam findings, and any diagnostic results supporting the discharge/admit diagnosis, radiology results, to return to the emergency department if symptoms worsen or persist or if there are any questions or concerns that arise at home. Response to treatment: the patient's symptoms have mildly improved after treatment, and as a result, I will discharge patient. Special discussion: Based on the patient's history, exam and DX evaluation, there is no indication for emergent intervention or inpatient [place]. It is understood by the patient/guardian that if the SXs persist or worsen they need to return immediately for re-evaluation. 05/05 01:06 Order name: CT Head C Spine cp 05/05 01:06 Order name: XRAY Humerus RIGHT cp 05/05 02:31 Order name: Rishabh; Complete Time: 02:38 cp Administered Medications: 01:15 Drug: Tetanus-Diphtheria Toxoid Adult 0.5 ml {Almond Huller: [employer]. Exp: rv 03/05/2021. Lot #: [id number]. } Route: IM; Site: left deltoid; 03:25 Follow up: Response: No adverse reaction rv 01:15 Drug: Hydrocodone-Acetaminophen (7.5 mg-325 mg) 1 tabs {Note: rass 0.} Route: PO; rv 03:25 Follow up: Response: No adverse reaction rv 03:26 Follow up: Response: RASS: Alert and Calm (0) rv 03:26 Drug: traMADol 50 mg {Note: rass 0.} Route: PO; rv 03:27 Follow up: Response: Medication administered at discharge. rv Disposition: 03:00 Chart complete. cp 05:01 Co-signature as Attending Physician, Mikel Humphreys MD I agree with the assessment and tw4 plan of care. Disposition: 05/06/19 02:33 Discharged to Home. Impression: Fall from bed, Abrasion of scalp - from fall, Pain in right shoulder - from fall. - Condition is Stable. - Discharge Instructions: Head Injury, Adult, Fall Prevention in the Home, Shoulder Pain, Shoulder Range of Motion Exercises. - Medication Reconciliation Form, Thank You Letter, Antibiotic Education, Prescription Opioid Use form. - Follow up: Private Physician; When: 1 - 2 days; Reason: Recheck today's complaints. - Problem is new. - Symptoms have improved. Signatures: Dispatcher [employer] EDMS Gustavo Angeles PA PA cp Wadley, Terrence, MD MD tw4 Hung Tripp RN RN rv Corrections: (The following items were deleted from the chart) 03:28 02:33 05/06/2019 02:33 Discharged to Home. Impression: Fall from bed; Abrasion of scalp rv - from fall; Pain in right shoulder - from fall. Condition is Stable. Forms are Medication Reconciliation Form, Thank You Letter, Antibiotic Education, Prescription Opioid Use. Follow up: Private Physician; When: 1 - 2 days; Reason: Recheck today's complaints. Problem is new. Symptoms have improved. cp
[2019-05-06] MEDS ORDERED: TRAMADOL HCL 50 MG TAB ONE (03:25)
[2019-05-06 03:35] VITALS: TEMP 98.5; O2SAT 98
[2019-05-06 03:36] VITALS: BP 102/63
--- NOTE | 2019-05-06 08:53 | RAD REPORT ---
EXAM DESCRIPTION: RAD - Humerus Right - 05/06/2019 2:10 am CLINICAL HISTORY: fall from bed;Pain COMPARISON: Humerus Right dated 02/22/2019; Shoulder Right Wo Cont dated 03/04/2019 FINDINGS: Large defect is seen in the humeral head compatible with chronic fracture. An acute fractu re is not detected.
--- NOTE | 2019-05-06 10:52 | RAD REPORT ---
EXAM DESCRIPTION: CT HEAD AND CT CERVICAL SPINE WITHOUT CONTRAST 05/06/2019 CLINICAL HISTORY: Headache, fall from bed COMPARISON: CT head without contrast 03/31/2019 TECHNIQUE: Axial [address] imaging of the brain. Axial [address] imaging of the cervical spine. Reformatted coronal and sagittal images obtai dionicio. This examination was performed according to our departmental dose optimization program, which include s automated exposure control, adjustment of the mA and/or kV according to patient size and/or use of iterative reconstruction technique. FINDINGS: CT Head: There is left posterior parietal-occipital small focus of encephalomalacia at the site of prior hemor rhage or remote infarct. There is no acute intracranial hemorrhage. No mass or midline shift. No larg e acute territorial infarction or hyperdense vessel. There is mild decreased white matter attenuation due to chronic microvascular ischemic change. There is moderate prominence of the ventricles and sul ci due to age-related cortical volume loss. The cerebellum and vermis appear normal. Fourth ventricle is midline. Normal sella contents. Intraorbital contents appear normal. There are polyps or retention cyst in the right and left maxilla ry antrum along the medial antral wall bilaterally. Remaining. The sinuses are clear. Mastoid air miki ls are partially opacified bilaterally. Skull base and calvarium are unremarkable. Scalp soft tissues appear normal. CT cervical spine: Normal cervical lordotic alignment. No cervical compression fracture. No subluxation. Intact odontoid process and lateral masses. Craniocervical and cervicothoracic junction alignment are within normal limits. Mild hypertrophic endplate changes throughout the cervical spine. No spinal canal stenosis. U ncovertebral joint hypertrophy contributes to moderate right C3-4 and C4-5 foraminal stenosis. No fra cture within the posterior elements. There is a mild superior wedge compression fracture of T2, age-indeterminate. No paraspinal edema. A mild superior endplate depression deformity of T3 is also present with no fracture lucency. Parapharyngeal soft tissues and mucosal spaces appear normal. There are significant bilateral carotid artery calcifications. Lung apices are clear. IMPRESSION: 1. Small focus of left posterior parietal occipital encephalomalacia at the site of prio r hemorrhage or remote infarct. No intracranial acute finding. 2. Mild to moderate senescent brain changes. 3. Mucosal sinus disease. 4. No acute cervical spine fracture or traumatic subluxation. Generalized cervical spondylosis. 5. Mild superior endplate fractures of T2 and T3, age-indeterminate. No fracture lucency or paraspina l edema. Electronically signed by: Paige Valdivia DO 05/06/2019 2:10 AM CDT Due to temporary technical issues with the PACS/Fluency reporting system, reports are being signed by the in house radiologist as a courtesy to ensure prompt reporting. The interpreting radiologist is f ully responsible for the content of the report.
== END 2019-05-06 03:28 | disposition home or self-care (01) ==
LOC: ER 00:43
DX: S00.01XA Abrasion of scalp, initial encounter (principal); M25.511 Pain in right shoulder; W06.XXXA Fall from bed, initial encounter; Y93.9 Activity, unspecified; Y92.9 Unspecified place or not applicable; I10 Essential (primary) hypertension; Z23 Encounter for immunization
CPT/HCPCS: 70450; 72125; 90471; 90714; 99284

== ENCOUNTER 2021-01-01 10:29 | Inpatient (IN) | payer OTHER ==
--- OUTSIDE RECORDS SUMMARY | 2021-01-01 10:35 | XMS REPORT | Continuity of Care Document ---
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 Branch Piggyback 4 12/06/20 g at 2145, Routine HYDROcodone 2020-02 Yes 1{tbl} 1 tablet, Univers -acetaminop 0-20 Oral, ity of hen (NORCO 02:07: Q6HPRN, [place] 5) 5-325 mg 20 Starting Medi xiomara tablet 1 on Tue Branch tablet 12/06/20 at 2107, Until Discontinu ed, Routine, Pain (scale 7-10) ipratropium 2020-02 Yes 3mL 3 mL, Unive rs -albuteroL 0-20 Inhalation ity of (DUONEB) 02:06: , Q6HPRN, [place] 0.5 mg-3 15 Starting Medical mg(2.5 mg on Branch base)/3 mL 12/06/20 nebulizer at 2106, solution 3 Until mL Discontinu ed, Routine, Wheezing, Shortness of Breath lidocaine 5 2020-02 Yes [id number] 1{patch Apply 1 Univers % (700 0-20 } Patch to ity of mg/patch) 00:00: area(s) [place] patch 00 once daily Medical as needed Branch for Localized pain. sucralfate 2020-02 Yes [id number] 1000mg Take 10 mL Univers 100 mg/mL 0-20 by mouth ity of suspension 00:00: before [place] 00 meals and Medical at Branch bedtime. lidocaine 2020-02 Yes [id number] 1{patch Apply 1 Univers % (700 0-20 } Patch to ity of mg/patch) 00:00: area(s) [place] patch 00 once daily Medical as needed Branch for Localized pain. sucralfate 2020-02 Yes [id number] 1000mg Take 10 mL Univers 100 mg/mL 0-20 by mouth ity of suspension 00:00: before [place] 00 meals and Medical at Branch bedtime. lidocaine 2020-02 Yes [id number] 1{patch Apply 1 Univers % (700 0-20 } Patch to ity of mg/patch) 00:00: area(s) [place] patch 00 once daily Medical as needed Branch for Localized pain. sucralfate 2020-02 Yes [id number] 1000mg Take 10 mL Univers 100 mg/mL 0-20 by mouth ity of suspension 00:00: before [place] 00 meals and Medical at Branch bedtime. lidocaine 2020-02 Yes [id number] 1{patch Apply 1 Univers % (700 0-20 } Patch to ity of mg/patch) 00:00: area(s) [place] patch 00 once daily Medical as needed Branch for Localized pain. sucralfate 2020-02 Yes [id number] 1000mg Take 10 mL Univers 100 mg/mL 0-20 by mouth ity of suspension 00:00: before [place] 00 meals and Medical at Branch bedtime. lidocaine 2020-02 Yes [id number] 1{patch Apply 1 Univers % (700 0-20 } Patch to ity of mg/patch) 00:00: area(s) [place] patch 00 once daily Medical as needed Branch for Localized pain. sucralfate 2020-02 Yes [id number] 1000mg Take 10 mL Univers 100 mg/mL 0-20 by mouth ity of suspension 00:00: before [place] 00 meals and Medical at Branch bedtime. sucralfate 2020-02 Yes [id number] 1000mg Take 10 mL Univers 100 mg/mL 0-20 by mouth ity of suspension 00:00: before [place] 00 meals and Medical at Branch bedtime. lidocaine 5 2020-02- No [id number] 1{patch Apply 1 Univers % (700 0-20 11-04 } Patch to ity of mg/patch) 00:00: 00:00 area(s[place] patch 00 :00 once daily Medical as needed [place] for Localized pain. sucralfate 2020-02- No [id number] 1000mg Take 10 mL Univers 100 mg/mL 0-20 10-20 by mouth ity o f suspension 00:00: 00:00 before [place] 00 :00 meals and Medical at [place] bedtime. ondansetron 2020-02- No 4mg 4 mg, Slow Univers (ZOFRAN 0-19 10-19 IV Push, ity of (PF)) 22:45: 21:37 ONCE, 1 [place] injection 4 00 :00 dose, On Medi xiomara mg [facility] 12/06/20 at 1745, DAYANA morpHINE 2020-02- No 4mg 4 mg, Slow Un reagan injection 4 0-19 10-19 IV Push, ity of mg 22:45: 21:37 ONCE, 1 [place] 00 :00 dose, On Medical [facility] 12/06/20 at 1745, STAT nicotine 14 2020-02- Yes [id number] 1{patch Apply 1 Univers mg/24 hr 008 -08 } Patch to ity of patch 00:00: 05:59 area(s) [place] 00 :00 every 24 Medical ([facility] Branch ur) hours for 30 days. nicotine 14 2020-02- Yes [id number] 1{patch Apply 1 Univers mg/24 hr 008 -08 } Patch to ity of patch 00:00: 05:59 area(s) [place] 00 :00 every 24 Medical ([facility] Branch ur) hours for 30 days. nicotine 14 2020-02- Yes [id number] 1{patch Apply 1 Univers mg/24 hr 0-08 11-08 } Patch to ity of patch 00:00: 05:59 area(s) [place] 00 :00 every 24 Medical ([facility] Branch ur) hours for 30 days. nicotine 14 2020-02- Yes [id number] 1{patch Apply 1 Univers mg/24 hr 0-08 11-08 } Patch to ity of patch 00:00: 05:59 area(s) [place] 00 :00 every 24 Medical (twenty-fo Branch ur) hours for 30 days. nicotine 14 2020-02- Yes [id number] 1{patch Apply 1 Univers mg/24 hr 0-08 11-08 } Patch to ity of patch 00:00: 05:59 area(s) [place] 00 :00 every 24 Medical (twenty-fo Branch ur) hours for 30 days. nicotine 14 2020-02- Yes [id number] 1{patch Apply 1 Univers mg/24 hr 0-08 -08 } Patch to ity of patch 00:00: 05:59 area(s) [place] 00 :00 every 24 Medical (twenty-fo Branch ur) hours for 30 days. nicotine 14 2020-02- Yes [id number] 1{patch Apply 1 Univers mg/24 hr 0-09 28-08 } Patch to ity of patch 00:00: 05:59 area(s) [place] 00 :00 every 24 Medical (twenty-fo Branch ur) hours for 30 days. ibuprofen 2020-02 Yes 200mg Take 200 Uni vers 200 mg 0-07 mg by ity of tablet 12:47: mouth [place] 28 every 6 Medical (six) Branch hours as needed. acetaminoph 2020-02 Yes 325mg Take 325 U nivers en 0-07 mg by ity of (TYLENOL) 12:47: mouth [place] 325 mg 28 every 6 Medical tablet (six) Branch hours as needed. nitroglycer 2020-[id number] 1 Univers in 0.4 mg 0-07 tablet ity of sublingual 00:00: under the [place] tablet 00 tongue Medical every 5 Branch (five) minutes as needed for Chest pain. nitroglycer 2020-[id number] 1 Univers in 0.4 mg 0-07 tablet ity of sublingual 00:00: under the [place] tablet 00 tongue Medical every 5 Branch (five) minutes as needed for Chest pain. nitroglycer 2020-[id number] 1 Univers in 0.4 mg 0-07 tablet ity of sublingual 00:00: under the [place] tablet 00 tongue Medical every 5 Branch (five) minutes as needed for Chest pain. nitroglycer 2020-[id number] 1 Univers in 0.4 mg 0-07 tablet ity of sublingual 00:00: under the [place] tablet 00 tongue Medical every 5 Branch (five) minutes as needed for Chest pain. nitroglycer 2020-[id number] 1 Univers in 0.4 mg 0-07 tablet ity of sublingual 00:00: under the [place] tablet 00 tongue Medical every 5 Branch (five) minutes as needed for Chest pain. nitroglycer 2020-[id number] 1 Univers in 0.4 mg 0-07 tablet ity of sublingual 00:00: under the [place] tablet 00 tongue Medical every 5 Branch (five) minutes as needed for Chest pain. nitroglycer 2020-[id number] 1 Univers in 0.4 mg 0-07 tablet ity of sublingual 00:00: under the [place] tablet 00 tongue Medical every 5 Branch (five) minutes as needed for Chest pain. aspirin 81 2020-02- Yes [id number] 81mg Take 1 Univers mg chewable 0-12-25 tablet by it y of tablet 00:00: 04:59 mouth [place] 00 :00 daily for Medical 30 days. [place] atorvastati 2020-02- Yes [id number] 40mg Take 1 Univers n 40 mg 0-12-25 tablet by ity of tablet 00:00: 04:59 mouth at [place] 00 :00 bedtime Medical for 30 Branch days. pantoprazol 2020-02- Yes [id number] 40mg Take 1 Univers e 40 mg EC 12-25 tablet by ity of tablet 00:00: 04:59 mouth [place] 00 :00 daily for Medical 30 days. [place] sucralfate 2020-02- Yes [id number] 1000mg Take 10 mL Univers 100 mg/mL 12-25 by mouth ity o f suspension 00:00: 04:59 before [place] 00 :00 meals and Medical at bedtime [place] for 30 days. aspirin 81 2020-02- Yes [id number] 81mg Take 1 Univers mg chewable 0-12-25 tablet by it y of tablet 00:00: 04:59 mouth [place] 00 :00 daily for Medical 30 days. Branch atorvastati 2020-02- Yes [id number] 40mg Take 1 Univers n 40 mg 0-07 11-07 tablet by ity of tablet 00:00: 04:59 mouth at [place] 00 :00 bedtime Medical for 30 Branch days. aspirin 81 2020-02- Yes [id number] 81mg Take 1 Univers mg chewable 0-07 11-07 tablet by it y of tablet 00:00: 04:59 mouth [place] 00 :00 daily for Medical 30 days. [place] [facility] 2020-02- Yes [id number] 40mg Take 1 Univers n 40 mg 0-07 11-07 tablet by ity of tablet 00:00: 04:59 mouth at [place] 00 :00 bedtime Medical for 30 Branch days. aspirin 81 2020-02- Yes [id number] 81mg Take 1 Univers mg chewable 0-07 11-07 tablet by it y of tablet 00:00: 04:59 mouth [place] 00 :00 daily for Medical 30 days. [place] [facility] 2020-02- Yes [id number] 40mg Take 1 Univers n 40 mg 0-07 - tablet by ity of tablet 00:00: 04:59 mouth at [place] 00 :00 bedtime Medical for 30 Branch days. aspirin 81 2020-02- Yes [id number] 81mg Take 1 Univers mg chewable 0-07 -07 tablet by it y of tablet 00:00: 04:59 mouth [place] 00 :00 daily for Medical 30 days. [place] [facility] 2020-02- Yes [id number] 40mg Take 1 Univers n 40 mg 0-07 -07 tablet by ity of tablet 00:00: 04:59 mouth at [place] 00 :00 bedtime Medical for 30 Branch days. aspirin 81 2020-02- Yes [id number] 81mg Take 1 Univers mg chewable 0-07 11-07 tablet by it y of tablet 00:00: 04:59 mouth [place] 00 :00 daily for Medical 30 days. [place] [facility] 2020-02- Yes [id number] 40mg Take 1 Univers n 40 mg 0-07 11-07 tablet by ity of tablet 00:00: 04:59 mouth at [place] 00 :00 bedtime Medical for 30 Branch days. aspirin 81 2020-02- Yes [id number] 81mg Take 1 Univers mg chewable 012-25 tablet by it y of tablet 00:00: 04:59 mouth [place] 00 :00 daily for Medical 30 days. Branch atorvastati 2020-02- Yes [id number] 40mg Take 1 Univers n 40 mg 12-25 tablet by ity of tablet 00:00: 04:59 mouth at [place] 00 :00 bedtime Medical for 30 Branch days. pantoprazol 2020-02- No [id number] 40mg Take 1 Univers e 40 mg EC 0- tablet by ity of tablet 00:00: 00:00 mouth [place] 00 :00 daily for Medical 30 days. Branch sucralfate 2020-02- No [id number] 1000mg Take 10 mL Univers 100 mg/mL -20 by mouth ity o f suspension 00:00: 00:00 before [place] 00 :00 meals and Medical at bedtime Branch for 30 days. budesonide- Yes [id number] 2{puff} Inhale 2 Univers formoteroL -23 41634 Puffs 2 ity o f 160-4.5 00:00: (two) [place] mcg/actuati 00 times Medical on inhaler daily. Branch albuterol Yes [id number] 2{puff} Inhale 2 Univers 90 - 61126 Puffs ity of mcg/actuati 00:00: every 4 [place] on inhaler 00 (four) Medical hours as Branch needed for Wheezing or Shortness of Breath. magnesium Yes [id number] 500mg Take 500 Univers oxide 500 - 68724 mg by ity of mg Tab 00:00: mouth [place] 00 daily. Medical Branch traMADoL 50 Yes [id number] 50mg Take 1 Univ ers mg tablet 11-10 tablet by ity o f 00:00: mouth [place] 00 every 6 Medical (six) Branch hours as needed for Pain (scale 7-10). Indication s: acute pain budesonide- Yes [id number] 2{puff} Inhale 2 Univers formoteroL 9-23 [id number] Puffs 2 ity o f 160-4.5 00:00: (two) [place] mcg/actuati 00 times Medical on inhaler daily. Branch albuterol Yes [id number] 2{puff} Inhale 2 Univers 90 9-23 [id number] Puffs ity of mcg/actuati 00:00: every 4 [place] on inhaler 00 (four) Medical hours as Branch needed for Wheezing or Shortness of Breath. magnesium Yes [id number] 500mg Take 500 Univers oxide 500 9-23 10874 mg by ity of mg Tab 00:00: mouth [place] 00 daily. Medical Branch traMADoL 50 Yes [id number] 50mg Take 1 Univ ers mg tablet 9-23 tablet by ity o f 00:00: mouth [place] 00 every 6 Medical (six) Branch hours as needed for Pain (scale 7-10). Indication s: acute pain budesonide- Yes [id number] 2{puff} Inhale 2 Univers formoteroL 9-23 04635 Puffs 2 ity o f 160-4.5 00:00: (two) [place] mcg/actuati 00 times Medical on inhaler daily. Branch albuterol Yes [id number] 2{puff} Inhale 2 Univers 90 9-23 02985 Puffs ity of mcg/actuati 00:00: every 4 [place] on inhaler 00 (four) Medical hours as Branch needed for Wheezing or Shortness of Breath. magnesium Yes [id number] 500mg Take 500 Univers oxide 500 9-23 27702 mg by ity of mg Tab 00:00: mouth [place] 00 daily. Medical Branch traMADoL 50 Yes [id number] 50mg Take 1 Univ ers mg tablet 9-23 tablet by ity o f 00:00: mouth [place] 00 every 6 Medical (six) Branch hours as needed for Pain (scale 7-10). Indication s: acute pain budesonide- Yes [id number] 2{puff} Inhale 2 Univers formoteroL 9-23 48094 Puffs 2 ity o f 160-4.5 00:00: (two) [place] mcg/actuati 00 times Medical on inhaler daily. Branch albuterol Yes [id number] 2{puff} Inhale 2 Univers 90 9-23 94756 Puffs ity of mcg/actuati 00:00: every 4 [place] on inhaler 00 (four) Medical hours as Branch needed for Wheezing or Shortness of Breath. magnesium Yes [id number] 500mg Take 500 Univers oxide 500 9-23 18130 mg by ity of mg Tab 00:00: mouth [place] 00 daily. Medical Branch traMADoL 50 0 Yes [id number] 50mg Take 1 Univ ers mg tablet 9-23 tablet by ity o f 00:00: mouth [place] 00 every 6 Medical (six) Branch hours as needed for Pain (scale 7-10). Indication s: acute pain budesonide- Yes [id number] 2{puff} Inhale 2 Univers formoteroL 9-23 86403 Puffs 2 ity o f 160-4.5 00:00: (two) [place] mcg/actuati 00 times Medical on inhaler daily. Branch albuterol Yes [id number] 2{puff} Inhale 2 Univers 90 9-23 39829 Puffs ity of mcg/actuati 00:00: every 4 [place] on inhaler 00 (four) Medical hours as Branch needed for Wheezing or Shortness of Breath. magnesium Yes [id number] 500mg Take 500 Univers oxide 500 9-23 58814 mg by ity of mg Tab 00:00: mouth [place] 00 daily. Medical Branch traMADoL 50 Yes [id number] 50mg Take 1 Univ ers mg tablet 9-23 tablet by ity o f 00:00: mouth [place] 00 every 6 Medical (six) Branch hours as needed for Pain (scale 7-10). Indication s: acute pain budesonide- Yes [id number] 2{puff} Inhale 2 Univers formoteroL 9-23 85140 Puffs 2 ity o f 160-4.5 00:00: (two) [place] mcg/actuati 00 times Medical on inhaler daily. Branch albuterol Yes [id number] 2{puff} Inhale 2 Univers 90 9-23 55208 Puffs ity of mcg/actuati 00:00: every 4 [place] on inhaler 00 (four) Medical hours as Branch needed for Wheezing or Shortness of Breath. magnesium 2020- Yes [id number] 500mg Take 500 Univers oxide 500 9-23 89433 mg by ity of mg Tab 00:00: mouth [place] 00 daily. Medical Branch traMADoL 50 0 Yes [id number] 50mg Take 1 Univ ers mg tablet 9-23 tablet by ity o f 00:00: mouth [place] 00 every 6 Medical (six) Branch hours as needed for Pain (scale 7-10). Indication s: acute pain budesonide- 0 Yes [id number] 2{puff} Inhale 2 Univers formoteroL 11-10 85504 Puffs 2 ity o f 160-4.5 00:00: (two) [place] mcg/actuati 00 times Medical on inhaler daily. Branch albuterol Yes [id number] 2{puff} Inhale 2 Univers 90 11-10 83787 Puffs ity of mcg/actuati 00:00: every 4 [place] on inhaler 00 (four) Medical hours as Branch needed for Wheezing or Shortness of Breath. traMADoL 50 Yes [id number] 50mg Take 1 Univ ers mg tablet -23 tablet by ity o f 00:00: mouth [place] 00 every 6 Medical (six) Branch hours as needed for Pain (scale 7-10). Indication s: acute pain magnesium 2020- No [id number] 500mg Take 500 Univers oxide 500 11-10 11- 04239 mg by ity of mg Tab 00:00: 00:00 mouth [place] 00 :00 daily. Medical Branch Melatonin 2019-0 Yes Take by [place] or 10 MG TABS 2-06 mouth. [place] 23:20: of 51 Medicin e omeprazole 2019-0 Yes 40mg Take 40 mg [place] (PRILOSEC) 2-06 by mouth Colle ge 40 MG 23:20: daily. of capsule 51 Medicin e Lisinopril Lisinopril 2019-0 Yes [place] [address] [facility] [place] [facility] Icosapent Icosapent 2019-0 Yes [place] [address] [facility] Ethyl Ethyl 08 [place] with meals [facility] Atorvastati Atorvastati 2019-0 Yes [place] [address] [facility] n Calcium n Calcium 08 [place] [facility] Melatonin Melatonin 2019-0 Yes [place] [address] [facility] [place] at bedtime [facility] - [facility] as needed [facility] Lorazepam Lorazepam Yes [place] [address] [facility] 08 [place] as needed [facility] albuterol albuterol Yes [place] [address] [facility] 08 [place] [facility] Enulose Enulose Yes [place] [address] [facility] [place] [facility] Omeprazole Omeprazole Yes [place] [address] [facility] 02[facility]25 [place] 30 minutes [facility] - 00:[facility]: before [facility] 00 morning l meal Outpati ent Clinics Nitroglycer Nitroglycer Yes [place] as [facility] 02-25 [place] directed [facility] Tramadol Tramadol Yes [place] [address] [facility] HCl HCl 02-25 [place] as needed [facility] Cymbalta Cymbalta Yes [place] [address] [facility] 02[facility] [place] [facility] albuterol 2018-02 Yes EVERY 6 [facility] r (PROVENTIL) 2-10 HOURS [facility] (2.5 mg/3 00:00: RESPIRATOR of mL) 0.083% 00 Y Medicin nebulizer e solution nitroglycer 2018-02 Yes [facility] in 03-10 DIRECTED [place] (NITROSTAT) 00:00: of 0.4 mg 00 Medicin sublingual e tablet atorvastati 2018-02 Yes DAILY [facility] r n (LIPITOR) 03-10 [facility] 20 MG 00:00: of tablet 00 Medicin e lisinopril Yes DAILY [facility] (PRINIVIL, 08-24 [facility] ZESTRIL) 10 00:00: of MG tablet 00 Medicin e Immunizations Ordered Immunization Filled Immunization Date Status Commen ts Source Name Name Pneumococcal 2019-01-27 Completed [facility] ge Polysaccharide 00:00:00 of Medicin e Influenza 2019-01-27 Completed [facility] (Preservative Free) 00:00:00 of Me velazquez Vital Signs Vital Name Observation Time Observation Value Comments Source Systolic blood 2020-12-22 21:17:00 119 mm[Hg] Univer sity of pressure [place] [facility] Diastolic blood 2020-12-22 21:17:00 69 mm[Hg] Unive rsity of pressure [place] [facility] Heart rate 2020-12-22 21:17:00 78 /min Universi ty [facility] [place] [facility] Body temperature 2020-12-22 21:17:00 37.11 Ness Univ ersity of [place] [facility] Respiratory rate 2020-12-22 21:17:00 18 /min Univ ersity of [place] [facility] Oxygen saturation in 2020-12-22 21:17:00 96 /min University of Arterial blood by [facility] xiomara Pulse oximetry Branch Systolic blood 2020-12-18 15:57:00 114 mm[Hg] Univer sity of pressure [place] [facility] Diastolic blood 2020-12-18 15:57:00 61 mm[Hg] Unive rsity of pressure [place] [facility] Heart rate 2020-12-18 15:57:00 81 /min Universi ty of [place] [facility] Body temperature 2020-12-18 15:57:00 36.67 Ness Univ ersity of [place] [facility] Respiratory rate 2020-12-18 15:57:00 16 /min Univ ersity of [place] [facility] Oxygen saturation in 2020-12-18 15:57:00 91 /min University of Arterial blood by [facility] Pulse oximetry Branch Body weight 2020-12-18 08:35:00 81.647 kg Universi ty [facility] [place] [facility] BMI 2020-12-18 08:35:00 27.37 kg/m2 Universi [facility] [place] [facility] Body height 2020-12-17 09:19:00 172.7 cm Universi ty [facility] [place] [facility] Systolic blood 2020-12-07 20:54:00 109 mm[Hg] Univer sity of pressure [place] [facility] Diastolic blood 2020-12-07 20:54:00 76 mm[Hg] Unive rsity of pressure [place] [facility] Heart rate 2020-12-07 20:54:00 84 /min Universi ty [facility] [place] [facility] Body temperature 2020-12-07 20:54:00 36.5 Ness Univ ersity of [place] [facility] Respiratory rate 2020-12-07 20:54:00 22 /min Univ ersity of [place] [facility] Oxygen saturation in 2020-12-07 20:54:00 94 /min University Arterial blood by [facility] Pulse oximetry Branch Body height 2020-12-07 01:49:00 172.7 cm [facility] Body weight 2020-12-07 01:49:00 85.73 kg [facility] BMI 2020-12-07 01:49:00 28.74 kg/m2 [facility] Body height 2019-03-26 23:17:00 172.7 cm [facility] 2019-03-26 23:17:[facility] 2019-03-26 23:17:00 24.33 kg[facility]m2 [facility] Body height 2019-03-26 23:17:00 172[facility]7 [facility] Body weight 2019-03-26 23:17:00 72.576 kg [facility] BMI 2019-03-26 23:17:00 24.33 kg/m2 [facility] Procedures Procedure Date / Time Performing Clinician Source Performed TROPONIN I 2020-12-22 18:14:00 Cam[facility] TROPONIN I 2020-12-22 12:55:00 [facility] TROPONIN I 2020-12-22 10:14:00 Cam[facility] TROPONIN I 2020-12-22 03:29:00 Cam[facility] TROPONIN I 2020-12-21 18:04:00 Camilo [facility] COVID-19 (MOLECULAR 2020-12-21 18:04:00 H[facility]ctor [facility] TESTING [facility] NUCLEIC ACID AMPLIFICATION) XR CHEST 1 VW 2020-12-21 13:32:43 Ismael Armas [facility] TROPONIN I 2020-12-21 11:59:00 Teresa Rod [facility] COMP. METABOLIC PANEL 2020-12-21 11:59:00 Teresa Rod [facility] ([id number]) Medical Branch CBC WITH DIFF 2020-12-21 11:59:00 eTresa Rod [facility] N-TERMINAL PRO-BNP 2020-12-21 11:59:00 Teresa Rdo [facility] COVID-19 (ID NOW RAPID 2020-12-21 11:52:00 Teresa Rod [facility] TESTING) Medical Branch LAB ONLY COVID 2020-12-21 11:52:00 Teresa Rod [facility] INTERPRETATION [facility] HB ECG ROUTINE & RHYTHM 2020-12-21 11:39:15 Teresa Rod [facility] TROPONIN I 2020-12-18 09:57:00 Raquel Lambert [facility] BASIC METABOLIC PANEL 2020-12-18 09:57:00 [facility] (NA, K, CL, CO2, GLUCOSE, Medica l Branch BUN, CREATININE, CA) CBC WITH DIFF 2020-12-18 07:35[facility] TROPONIN I 2020-12-18 04:44:00 Ra[facility] TROPONIN I 2020-12-17 22:28:00 Fausto Raquel [facility] TROPONIN I 2020-12-17 16:52:00 Fausto Raquel [facility] BLOOD CULTURE SCREEN 2020-12-17 11:24:00 Nacho Hilton [facility] BLOOD CULTURE SCREEN 2020-12-17 11:10:00 Nacho Hilton [facility] XR CHEST 1 VW 2020-12-17 10:26:27 Nacho Hilton [facility] COVID-19 (ID NOW RAPID 2020-12-17 09:35:00 Nacho Hilton [facility] TESTING) Medical Branch LIPASE 2020-12-17 09:33:00 Nacho Hilton [facility] TROPONIN I 2020-12-17 09:33:00 Nacho Hilton [facility] COMP. METABOLIC PANEL 2020-12-17 09:33:00 Nacho Hilton [facility] ([id number]) Medical Branch CBC WITH DIFF 2020-12-17 09:33:00 Nacho Hilton [facility] HB ECG ROUTINE & RHYTHM 2020-12-17 09:14:02 Nacho Hilton [facility] MAGNESIUM 2020-12-07 10:34:00 Narciso [facility] BASIC METABOLIC PANEL 2020-12-07 10:34:[facility] ([facility], K, CL, CO2, GLUCOSE, Medica l Branch BUN, CREATININE, CA) LIPID PANEL (21131)(TOTAL 2020-12-07 10:34:00 Elli Stuart [facility] CHOLESTEROL, [facility] TRIGLYCERIDES, HDL) TROPONIN I 2020-12-07 02:20:00 Narciso [facility] COVID-19 (ID NOW RAPID 2020-12-06 22:43:00 Kyree Oakley [facility] TESTING) Medical Branch XR CHEST 1 VW 2020-12-06 21:40:44 Singer [facility] MAGNESIUM 2020-12-06 21:28:00 Singer [facility] TROPONIN I 2020-12-06 21:28:00 Singer [facility] COMP. METABOLIC PANEL 2020-12-06 21:28:00 Kyree Oakley [facility] ([id number]) Medical Branch CBC WITH DIFF 2020-12-06 21:28:00 Singer [facility] N-TERMINAL PRO-BNP 2020-12-06 21:28:00 Kyree Oakley [facility] HB ECG ROUTINE & RHYTHM 2020-12-06 20:58:39 Singer Kyree [facility] [id number] 2020-05-17 00:00:00 LYSSA.Fuentes Weaver [facility] Plan of Care Planned Activity Planned Date Details Comments Source Future Scheduled ORT - XR SHOULDER Ordered: [facility] Test BILAT 4V (CHARGE 03/26/2019 Medicine ONLY) [code = 24260] Future Scheduled COLON CANCER [facility] ege of Test SCREENING: Medicine COLONOSCOPY [code = COLON CANCER SCREENING: COLONOSCOPY] Future Scheduled TETANUS SHOT (ADULT) [facility] of Test [code = TETANUS SHOT Medicin e (ADULT)] Future Scheduled HEPATITIS C [facility] ege of Test SCREENING [code = Medicine HEPATITIS C SCREENING] Future Scheduled MEDICARE AWV [facility] Pallavi ege of Test (Initial) [code = Medicine MEDICARE AWV (Initial)] Future Scheduled AAA Screen [code = [facility] of Test AAA Screen] Medicine Future Scheduled PREVNAR >= 65 [facility] Col lege of Test (PCV13) [code = Medicine PREVNAR >= 65 (PCV13)] Future Scheduled FALL SCREEN [code = [place] [facility] of Test FALL SCREEN] Medicine Encounters Start End Encounter Admission Attending Care Care Encounter Source Date/Time Date/Time Type Type Clinicians Facility Department ID 2020-12-20 Emergency [facility] [id number] Univers 03:28:31 ity [facility] 2020-12-20 Emergency [facility] [id number] Univers 00:26:09 itUT [facility] 2020-05-17 Inpatient BENJI Vallse, HCACR JOYCELYN [id number] [facility] 11:00:00 Michael [id number] [facility] 2020-05-13 Inpatient Reena, HCACR [facility] [id number] [facility] 11:00:00 Michael [id number] [facility] 2020-12-21 2020-12-22 Outpatient U MATY LEDESMA [facility] [id number] Univers 06:43:00 22:32:00 ity [facility] 2020-12-21 2020-12-22 Emergency Teresa Rod [facility] 1.2.8 40.114 [id number] Univers 06:43:00 22:32:00 [facility] [id number] ity Maty Led[place] [phone] [address] ([facility]) 2020-12-20 2020-12-20 Transition ALANA Mcfadden [id number] Univers 00:00:00 00:00:00 of Care Lindsey B LUCAS 350.1.13.10 [place] [id number] [facility] 403 Branch 2020-12-17 2020-12-18 Outpatient X JASMEET [facility] [id number] Univers 04:11:00 14:00:00 WAKILI ity of [facility] 2020-12-17 2020-12-18 Emergency Nacho Hilton [facility] 1.2.840 .114 [id number] Univers 04:11:00 14:00:00 Eleanor Juarez 350.1.13.10 [place] [id number] [facility] 081 Branch 2020-12-09 2020-12-09 Telephone Shahriar [facility] [id number] Univers 00:00:00 00:00:00 Sam PRIMARY 350.1.13.10 [place] [id number] Ny dicar 388 Branch 2020-12-08 2020-12-08 Transition Alana Mcfadden 1.2.840.114 [id number] Univers 00:00:00 00:00:00 of Care Lindsey B Lucas 350.1.13.10 it [place] [id number] [facility] 403 Branch 2020-12-06 2020-12-07 Emergency Kyree Oakley 1.2.840. 114 [id number] Univers 16:01:00 18:47:00 Jeanine Conner 350.1.13.10 ity of [facility] 4.2.7.2.686 [place] [id number] [facility] 089 Branch 2020-12-06 2020-12-07 Outpatient X DALILA [facility] [id number] Univers 16:01:00 18:47:00 JEANINE ity of [facility] 2020-11-25 2020-11-25 Transition Alana Mcfadden 1.2.840.114 [id number] Univers 00:00:00 00:00:00 of Care Lindsey Lucas 350.1.13.10 it y of [place] 4.2.7.2.686 Amber mueller [id number] [place] [address] Branch 2020-11-14 2020-11-14 Outpatient R MERAZ, [facility] [id number] Univers 08:25:00 08:25:00 SENDIL ity [facility] 2020-09-26 2020-09-26 Outpatient R RADIOLOGY [facility] [id number] Univers 00:00:00 00:00:00 ity [facility] 2019-05-08 2019-05-08 Outpatient [facility] [id number] [facility] 00:00:00 00:00:00 [id number] 2019-04-20 2019-04-20 Outpatient Dangelo Piersont [id number] [facility] 10:34:00 10:34:00 [facility] Clinics 2019-03-26 2019-03-27 Office Keesha RAY 1.2.840.114 [id number] [facility] 16:15:34 08:08:17 Visit Harjinder Whyte AMBULATOR 350.1.13.21 Y 0.2.7.2.686 [id number] 600 2019-03-26 2019-03-27 Office RAY Thao 1.2.840.[id number] [place] [address] 16:15:34 08:08:17 Visit Harjinder Whyte AMBULATOR 350.1.13.21 College Y 0.2.7.2.686 of [id number] [facility] 600 e 2019-03-05 2019-03-05 [facility] [id number] 11:48:00 11:48:00 [facility] Clin[facility] 2019-03-05 2019-03-05 [facility] [id number] 08:34:00 08:34:00 [facility] 2019-03-02 2019-03-02 Outpatient Dangelo Piersont [id number] 09:48:00 09:48:00 [facility] 2019-02-26 2019-02-26 Outpatient Dangelo Piersont [id number] 12:02:00 12:02:00 [facility] 2019-02-25 2019-02-25 Outpatient Dangelo Piersont [id number] 09:00:00 09:00:00 [facility] Results Test Description Test Time Test Comments Results Result Comments Source TROPONIN I 2020-12-22 18:54:22 Test Item Value Reference Range Interpretation Comme nts TROPONIN I (test code = 0.007 ng/mL See_Comment [Au tomated message] The 2140313824) system which ge nerated this result tra nsmitted reference range : <=0.034. The reference r jeff was not used to int erpret this result as normal/abnormal . RUCHI (test code = RUCHI) Reference (Normal) Range (defined by the 99th percentile reference limit): <= 0.034 ng/mL Note: Cardiac troponin begins to rise 3-4 hours after the onset of ischemia. Repeat in 4-6 hours if the sample was drawn within 3-4 hours of the onset of the symptom and found normal. Diagnosis of myocardial injury is made with acute changes in cTn concentrations with at least one serial sample above the 99th percentile upper reference limit (URL), taken together with the patient's clinical presentation. Biotin has been reported to cause a negative bias, interpret results relative to patient's use of biotin. Lab Interpretation Normal (test code = 90196-7) [id number] 13:31[facility]57 Test Item Value Reference Interpretation Comments Range TROPONIN I (test 0.009 ng/mL See_Comment [Automated code = 4231236698) message] The system which generated this result transmitted reference range : <=0.034. The reference range was not used to interpret this result as normal/abnormal . RUCHI (test code = Reference (Normal) RUCHI) Range (defined by the 99th percentile reference limit): <= 0.034 ng/mL Note: Cardiac troponin begins to rise 3-4 hours after the onset of ischemia. Repeat in 4-6 hours if the sample was drawn within 3-4 hours of the onset of the symptom and found normal. Diagnosis of myocardial injury is made with acute changes in cTn concentrations with at least one serial sample above the 99th percentile upper reference limit (URL), taken together with the patient's clinical presentation. Biotin has been reported to cause a negative bias, interpret results relative to patient's use of biotin. Lab Interpretation Normal (test code = 89799-7) [facility] [id number] 11:32:09 Test Item Value Reference Interpretation Comments Range TROPONIN I (test 0.009 ng/mL See_Comment [Automated code = 0501067969) message] The system which generated this result transmitted reference range : <=0.034. The reference range was not used to interpret this result as normal/abnormal . RUCHI (test code = Reference (Normal) RUCHI) Range (defined by the 99th percentile reference limit): <= 0.034 ng/mL Note: Cardiac troponin begins to rise 3-4 hours after the onset of ischemia. Repeat in 4-6 hours if the sample was drawn within 3-4 hours of the onset of the symptom and found normal. Diagnosis of myocardial injury is made with acute changes in cTn concentrations with at least one serial sample above the 99th percentile upper reference limit (URL), taken together with the patient's clinical presentation. Biotin has been reported to cause a negative bias, interpret results relative to patient's use of biotin. Lab Interpretation Normal (test code = 05532-5) [facility] [id number] 04:22:20 Test Item Value Reference Interpretation Comments Range TROPONIN I (test 0.011 ng/mL See_Comment [Automated code = 0446880952) message] The system which generated this result transmitted reference range : <=0.034. The reference range was not used to interpret this result as normal/abnormal . RUCHI (test code = Reference (Normal) RUCHI) Range (defined by the 99th percentile reference limit): <= 0.034 ng/mL Note: Cardiac troponin begins to rise 3-4 hours after the onset of ischemia. Repeat in 4-6 hours if the sample was drawn within 3-4 hours of the onset of the symptom and found normal. Diagnosis of myocardial injury is made with acute changes in cTn concentrations with at least one serial sample above the 99th percentile upper reference limit (URL), taken together with the patient's clinical presentation. Biotin has been reported to cause a negative bias, interpret results relative to patient's use of biotin. Lab Interpretation Normal (test code = 15839-3) [facility] [id number] 18:44:56 Test Item Value Reference Interpretation Comments Range TROPONIN I (test 0.011 ng/mL See_Comment [Automated code = 9113067982) message] The system which generated this result transmitted reference range : <=0.034. The reference range was not used to interpret this result as normal/abnormal . RUCHI (test code = Reference (Normal) RUCHI) Range (defined by the 99th percentile reference limit): <= 0.034 ng/mL Note: Cardiac troponin begins to rise 3-4 hours after the onset of ischemia. Repeat in 4-6 hours if the sample was drawn within 3-4 hours of the onset of the symptom and found normal. Diagnosis of myocardial injury is made with acute changes in cTn concentrations with at least one serial sample above the 99th percentile upper reference limit (URL), taken together with the patient's clinical presentation. Biotin has been reported to cause a negative bias, interpret results relative to patient's use of biotin. Lab Interpretation Normal (test code = 86603-9) [facility] [id number] 13:09:34 Test Item Value Reference Interpretation Comments Range TROPONIN I (test 0.012 ng/mL See_Comment [Automated code = 1457905993) message] The system which generated this result transmitted reference range : <=0.034. The reference range was not used to interpret this result as normal/abnormal . RUCHI (test code = Reference (Normal) RUCHI) Range (defined by the 99th percentile reference limit): <= 0.034 ng/mL Note: Cardiac troponin begins to rise 3-4 hours after the onset of ischemia. Repeat in 4-6 hours if the sample was drawn within 3-4 hours of the onset of the symptom and found normal. Diagnosis of myocardial injury is made with acute changes in cTn concentrations with at least one serial sample above the 99th percentile upper reference limit (URL), taken together with the patient's clinical presentation. Biotin has been reported to cause a negative bias, interpret results relative to patient's use of biotin. Lab Interpretation Normal (test code = 81135-3) [id number] 13:06:15 Test Item Value Reference Range Interpretation Comments NT-proBNP (test code 206 pg/mL See_Comment H [Autom ated = 6213668109) message] The system which generated this result transmitted reference range : <=125. The reference range was not used to interpret this result as normal/abnormal . RUCHI (test code = RUCHI) Biotin has been reported to cause a negative bias, interpret results relative to patient's use of biotin. Lab Interpretation Abnormal (test code = 61899-3) [facility]74488[facility]2020-12-21 12:57:33 Test Item Value Reference Range Interpretation Comments NA (test code = 130 mmol/L 135-145 L 1604206047) K (test code = 3.1 mmol/L 3.5-5.0 L 3956363739) CL (test code = 91 mmol/L 98-108 L 0166879983) CO2 TOTAL (test code = 22 mmol/L 23-31 L 5299486276) AGAP (test code = 2-16 H 8126160599) BUN (test code = 16 mg/dL 7-23 4895737883) GLUCOSE (test code = 125 mg/dL 70-110 H 9317125529) CREATININE (test code = 0.96 mg/dL 0.60-1.25 1076239618) TOTAL BILI (test code = 1.0 mg/dL 0.1-1.2 6028629948) CALCIUM (test code = 9.6 mg/dL 8.6-10.6 9779769629) T PROTEIN (test code = 6.5 g/dL 6.3-8.2 2297762774) ALBUMIN (test code = 4.0 g/dL 3.5-5.0 4790478514) ALK PHOS (test code = 74 U/L 34-122 8474520602) ALTv (test code = 23 U/L 5-50 1742-6) AST(SGOT) (test code = 45 U/L 13-40 H 2020168851) eGFR (test code = mL/min/1.73m2 5071500635) RUCHI (test code = RUCHI) Association of Glomerular Filtration Rate (GFR) and Staging of Kidney Disease* + --+ --+ ------+| GFR (mL/min/1.73 m2) ?| With Kidney Damage ?| ?Without Kidney Damage+ --------+ --------+ +| ?>90 ?| ?Stage one ?| ? Normal ?+ ---+ ---+ -------+| ?60-89 ?| ?Stage two ?| ? Decreased GFR ? + --+ --+ ------+| ?30-59 ?| ?Stage three ?| ? Stage three ? + --+ --+ ------+| ?15-29 ?| ?Stage four ? | ? Stage four ?+ ---+ ---+ -------+| ?<15 (or dialysis) ? ?| ?Stage five ? | ? Stage five ?+ ---+ ---+ -------+ *Each stage assumes the associated GFR level has been in effect for at least three months. ?Stages 1 to 5, with or without kidney disease, indicate chronic kidney disease. Notes: Determination of stages one and two (with eGFR >59mL/min/1.73 m2) requires estimation of kidney damage for at least three months as defined by structural or functional abnormalities of the kidney, manifested by either:Pathological abnormalities or Markers of kidney damage (including abnormalities in the composition of the blood or urine or abnormalities in imaging tests). Lab Interpretation Abnormal (test code = 17310-4) [facility] WITH [id number] 12:36:51 Test Item Value Reference Range Interpretation Comments WBC (test code = See_Comment [Automated 7293-2) message] The sy stem which generated this result transmitted reference range : 4.20 - 10.70 10*3/?L. The reference range was not used to interpret this result as normal/abnormal . RBC (test code = See_Comment L [Automated 433-) message] The sy stem which generated this result transmitted reference range : 4.26 - 5.52 10*6/?L. The reference range was not used to interpret this result as normal/abnormal . HGB (test code = 13.4 g/dL 12.2-16.4 718-7) HCT (test code = 38.7 % 38.4-49.3 4544-3) MCV (test code = 93.7 fL 81.7-95.6 787-2) MCH (test code = 32.4 pg 26.1-32.7 785-6) MCHC (test code = 34.6 g/dL 31.2-35.0 786-4) RDW-SD (test code = 61.9 fL 38.5-51.6 H 69385-8) RDW-CV (test code = 18.1 % 12.1-15.4 H 788-0) PLT (test code = See_Comment [Automated 777-3) message] The sy stem which generated this result transmitted reference range : 150 - 328 10*3/ ?L. The reference r jeff was not used to interpret this result as normal/abnormal . MPV (test code = 9.6 fL 9.8-13.0 L 21959-6) NRBC/100 WBC (test See_Comment [Automat ed code = 7623596552) message] The system which generated this result transmitted reference range : 0.0 - 10.0 /100 WBCs. The refer ence range was not u sed to interpret th is result as normal/abnormal . NRBC x10^3 (test code <0.01 See_Comment [Auto mated = 9039207370) message] The s ystem which generated this result transmitted reference range : 10*3/?L. The reference range was not used to interpret this result as normal/abnormal . GRAN MAT (NEUT) % 72.8 % (test code = 770-8) IMM GRAN % (test code 1.90 % = 3298782429) LYMPH % (test code = 14.9 % 736-9) MONO % (test code = 8.7 % 5905-5) EOS % (test code = 0.5 % 713-8) BASO % (test code = 1.2 % 706-2) GRAN MAT x10^3(ANC) 6.79 10*3/uL 1.99-6.95 (test code = 3832900123) IMM GRAN x10^3 (test 0.18 10*3/uL 0.00-0.06 H code = 0261851443) LYMPH x10^3 (test code 1.39 10*3/uL 1.09-3.23 = 731-0) MONO x10^3 (test code 0.81 10*3/uL 0.36-1.02 = 742-7) EOS x10^3 (test code = 0.05 10*3/uL 0.06-0.53 L 711-2) BASO x10^3 (test code 0.11 10*3/uL 0.01-0.09 H = 704-7) Lab Interpretation Abnormal (test code = 37033-3) [facility] Metabolic Panel (NA, K, CL, CO2, GLUCOSE, BUN, CREATININE, CA)2020-12-18 11:20:53 Test Item Value Reference Range Interpretation Comments NA (test code = 130 mmol/L 135-145 L 3604567075) K (test code = 3.4 mmol/L 3.5-5.0 L Slight 3921770086) hemolysis CL (test code = 93 mmol/L 98-108 L 2141738705) CO2 TOTAL (test code 23 mmol/L 23-31 = 6790304489) AGAP (test code = 2-16 0613910531) BUN (test code = 17 mg/dL 7-23 Slight 5267301899) hemolysis GLUCOSE (test code = 122 mg/dL 70-110 H 1766341766) CREATININE (test code 0.98 mg/dL 0.60-1.25 = 3332423041) CALCIUM (test code = 9.2 mg/dL 8.6-10.6 2860832698) eGFR (test code = mL/min/1.73m2 2516414068) RUCHI (test code = RUCHI) Association of Glomerular Filtration Rate (GFR) and Staging of Kidney Disease* + -----+ --------+ +| GFR (mL/min/1.73 m2) ?| With Kidney Damage ?| ?Without Kidney Damage+ +------- +---- --+| ?>90 ?| ?Stage one ?| ? Normal ?+ ------+ ---------+--------- +| ?60-89 ?| ?Stage two ?| ? Decreased GFR ? + -----+ --------+ +| ?30-59 ?| ?Stage three ?| ? Stage three ? + -----+ --------+ +| ?15-29 ?| ?Stage four ? | ? Stage four ?+ ------+ ---------+--------- +| ?<15 (or dialysis) ? ?| ?Stage five ? | ? Stage five ?+ ------+ ---------+--------- + *Each stage assumes the associated GFR level has been in effect for at least three months. ?Stages 1 to 5, with or without kidney disease, indicate chronic kidney disease. Notes: Determination of stages one and two (with eGFR >59mL/min/1.73 m2) requires estimation of kidney damage for at least three months as defined by structural or functional abnormalities of the kidney, manifested by either:Pathological abnormalities or Markers of kidney damage (including abnormalities in the composition of the blood or urine or abnormalities in imaging tests). Lab Interpretation Abnormal (test code = 44170-4) [facility] [id number] 11:20:53 Test Item Value Reference Interpretation Comments Range TROPONIN I (test 0.010 ng/mL See_Comment [Automated code = 9225461892) message] The system which generated this result transmitted reference range : <=0.034. The reference range was not used to interpret this result as normal/abnormal . RUCHI (test code = Reference (Normal) RUCHI) Range (defined by the 99th percentile reference limit): <= 0.034 ng/mL Note: Cardiac troponin begins to rise 3-4 hours after the onset of ischemia. Repeat in 4-6 hours if the sample was drawn within 3-4 hours of the onset of the symptom and found normal. Diagnosis of myocardial injury is made with acute changes in cTn concentrations with at least one serial sample above the 99th percentile upper reference limit (URL), taken together with the patient's clinical presentation. Biotin has been reported to cause a negative bias, interpret results relative to patient's use of biotin. Lab Interpretation Normal (test code = 72439-8) [facility] with [id number] 08:52:39 Test Item Value Reference Range Interpretation Comments WBC (test code = See_Comment H [Automated 6690-2) message] The sy stem which generated this result transmitted reference range : 4.20 - 10.70 10*3/?L. The reference range was not used to interpret this result as normal/abnormal . RBC (test code = See_Comment L [Automated 789-8) message] The sy stem which generated this result transmitted reference range : 4.26 - 5.52 10*6/?L. The reference range was not used to interpret this result as normal/abnormal . HGB (test code = 12.9 g/dL 12.2-16.4 718-7) HCT (test code = 37.7 % 38.4-49.3 L 4544-3) MCV (test code = 95.2 fL 81.7-95.6 787-2) MCH (test code = 32.6 pg 26.1-32.7 785-6) MCHC (test code = 34.2 g/dL 31.2-35.0 786-4) RDW-SD (test code = 66.4 fL 38.5-51.6 H 06857-8) RDW-CV (test code = 18.9 % 12.1-15.4 H 788-0) PLT (test code = See_Comment [Automated 777-3) message] The sy stem which generated this result transmitted reference range : 150 - 328 10*3/ ?L. The reference r jeff was not used to interpret this result as normal/abnormal . MPV (test code = 10.3 fL 9.8-13.0 10451-9) NRBC/100 WBC (test See_Comment [Automat ed code = 3970197395) message] The system which generated this result transmitted reference range : 0.0 - 10.0 /100 WBCs. The refer ence range was not u sed to interpret th is result as normal/abnormal . NRBC x10^3 (test code <0.01 See_Comment [Auto mated = 7524910595) message] The s ystem which generated this result transmitted reference range : 10*3/?L. The reference range was not used to interpret this result as normal/abnormal . GRAN MAT (NEUT) % 78.1 % (test code = 770-8) IMM GRAN % (test code 1.10 % = 1168453164) LYMPH % (test code = 9.3 % 736-9) MONO % (test code = 10.0 % 5905-5) EOS % (test code = 0.6 % 713-8) BASO % (test code = 0.9 % 706-2) GRAN MAT x10^3(ANC) 9.65 10*3/uL 1.99-6.95 H (test code = 0583247123) IMM GRAN x10^3 (test 0.13 10*3/uL 0.00-0.06 H code = 6471383825) LYMPH x10^3 (test code 1.15 10*3/uL 1.09-3.23 = 731-0) MONO x10^3 (test code 1.23 10*3/uL 0.36-1.02 H = 742-7) EOS x10^3 (test code = 0.07 10*3/uL 0.06-0.53 711-2) BASO x10^3 (test code 0.11 10*3/uL 0.01-0.09 H = 704-7) Lab Interpretation Abnormal (test code = 83534-5) [facility] [id number] 05:47:13 Test Item Value Reference Interpretation Comments Range TROPONIN I (test 0.014 ng/mL See_Comment [Automated code = 5929332727) message] The system which generated this result transmitted reference range : <=0.034. The reference range was not used to interpret this result as normal/abnormal . RUCHI (test code = Reference (Normal) RUCHI) Range (defined by the 99th percentile reference limit): <= 0.034 ng/mL Note: Cardiac troponin begins to rise 3-4 hours after the onset of ischemia. Repeat in 4-6 hours if the sample was drawn within 3-4 hours of the onset of the symptom and found normal. Diagnosis of myocardial injury is made with acute changes in cTn concentrations with at least one serial sample above the 99th percentile upper reference limit (URL), taken together with the patient's clinical presentation. Biotin has been reported to cause a negative bias, interpret results relative to patient's use of biotin. Lab Interpretation Normal (test code = 93406-8) [facility] [id number] 23:35:16 Test Item Value Reference Interpretation Comments Range TROPONIN I (test <0.012 See_Comment [Automated code = 3139089006) message] The system which generated this result transmitted reference range : <=0.034 ng/mL. The reference range was not used to interpret this result as normal/abnormal . RUCHI (test code = Reference (Normal) RUCHI) Range (defined by the 99th percentile reference limit): <= 0.034 ng/mL Note: Cardiac troponin begins to rise 3-4 hours after the onset of ischemia. Repeat in 4-6 hours if the sample was drawn within 3-4 hours of the onset of the symptom and found normal. Diagnosis of myocardial injury is made with acute changes in cTn concentrations with at least one serial sample above the 99th percentile upper reference limit (URL), taken together with the patient's clinical presentation. Biotin has been reported to cause a negative bias, interpret results relative to patient's use of biotin. Lab Interpretation Normal (test code = 52183-3) [facility] [id number] 18:02:17 Test Item Value Reference Interpretation Comments Range TROPONIN I (test <0.012 See_Comment [Automated code = 5647910841) message] The system which generated this result transmitted reference range : <=0.034 ng/mL. The reference range was not used to interpret this result as normal/abnormal . RUCHI (test code = Reference (Normal) RUCHI) Range (defined by the 99th percentile reference limit): <= 0.034 ng/mL Note: Cardiac troponin begins to rise 3-4 hours after the onset of ischemia. Repeat in 4-6 hours if the sample was drawn within 3-4 hours of the onset of the symptom and found normal. Diagnosis of myocardial injury is made with acute changes in cTn concentrations with at least one serial sample above the 99th percentile upper reference limit (URL), taken together with the patient's clinical presentation. Biotin has been reported to cause a negative bias, interpret results relative to patient's use of biotin. Lab Interpretation Normal (test code = 81427-7) [facility] [id number] 10:23:31 Test Item Value Reference Interpretation Comments Range TROPONIN I (test <0.012 See_Comment [Automated code = 1657676396) message] The system which generated this result transmitted reference range : <=0.034 ng/mL. The reference range was not used to interpret this result as normal/abnormal . RUCHI (test code = Reference (Normal) RUCHI) Range (defined by the 99th percentile reference limit): <= 0.034 ng/mL Note: Cardiac troponin begins to rise 3-4 hours after the onset of ischemia. Repeat in 4-6 hours if the sample was drawn within 3-4 hours of the onset of the symptom and found normal. Diagnosis of myocardial injury is made with acute changes in cTn concentrations with at least one serial sample above the 99th percentile upper reference limit (URL), taken together with the patient's clinical presentation. Biotin has been reported to cause a negative bias, interpret results relative to patient's use of biotin. Lab Interpretation Normal (test code = 00479-3) [facility]. METABOLIC PANEL ([id number])2020-12-17 10:12:07 Test Item Value Reference Range Interpretation Comments NA (test code = 135 mmol/L 135-145 6710313077) K (test code = 3.9 mmol/L 3.5-5.0 9245244874) CL (test code = 95 mmol/L 98-108 L 2664138844) CO2 TOTAL (test code = 17 mmol/L 23-31 L 8665919804) AGAP (test code = 2-16 H 3250414281) BUN (test code = 12 mg/dL 7-23 4583745844) GLUCOSE (test code = 70 mg/dL 70-110 7005297878) CREATININE (test code = 0.99 mg/dL 0.60-1.25 0370958373) TOTAL BILI (test code = 1.0 mg/dL 0.1-1.9 3675298551) CALCIUM (test code = 9.4 mg/dL 8.6-10.6 3432526281) T PROTEIN (test code = 6.8 g/dL 6.3-8.2 7138346333) ALBUMIN (test code = 4.4 g/dL 3.5-5.0 5650504707) ALK PHOS (test code = 84 U/L 34-122 5213387469) ALTv (test code = 25 U/L 5-50 1742-6) AST(SGOT) (test code = 72 U/L 13-40 H 6487116535) eGFR (test code = mL/min/1.73m2 7955999783) RUCHI (test code = RUCHI) Association of Glomerular Filtration Rate (GFR) and Staging of Kidney Disease* + --+ --+ ------+| GFR (mL/min/1.73 m2) ?| With Kidney Damage ?| ?Without Kidney Damage+ --------+ --------+ +| ?>90 ?| ?Stage one ?| ? Normal ?+ ---+ ---+ -------+| ?60-89 ?| ?Stage two ?| ? Decreased GFR ? + --+ --+ ------+| ?30-59 ?| ?Stage three ?| ? Stage three ? + --+ --+ ------+| ?15-29 ?| ?Stage four ? | ? Stage four ?+ ---+ ---+ -------+| ?<15 (or dialysis) ? ?| ?Stage five ? | ? Stage five ?+ ---+ ---+ -------+ *Each stage assumes the associated GFR level has been in effect for at least three months. ?Stages 1 to 5, with or without kidney disease, indicate chronic kidney disease. Notes: Determination of stages one and two (with eGFR >59mL/min/1.73 m2) requires estimation of kidney damage for at least three months as defined by structural or functional abnormalities of the kidney, manifested by either:Pathological abnormalities or Markers of kidney damage (including abnormalities in the composition of the blood or urine or abnormalities in imaging tests). Lab Interpretation Abnormal (test code = 53726-9) [facility] Test Item Value Reference Range Interpretation Comments LIPASE (test code = 8386753929) 400 U/L 0-220 H Lab Interpretation (test code = Abnormal 14644-1) [facility] [id number] 09:45:05 Test Item Value Reference Range Interpretation Comments WBC (test code = See_Comment H [Automated 1390-2) message] The sy stem which generated this result transmitted reference range : 4.20 - 10.70 10*3/?L. The reference range was not used to interpret this result as normal/abnormal . RBC (test code = See_Comment [Automated 789-8) message] The sy stem which generated this result transmitted reference range : 4.26 - 5.52 10*6/?L. The reference range was not used to interpret this result as normal/abnormal . HGB (test code = 15.1 g/dL 12.2-16.4 718-7) HCT (test code = 45.7 % 38.4-49.3 4544-3) MCV (test code = 97.2 fL 81.7-95.6 H 787-2) MCH (test code = 32.1 pg 26.1-32.7 785-6) MCHC (test code = 33.0 g/dL 31.2-35.0 786-4) RDW-SD (test code = 68.3 fL 38.5-51.6 H 12864-8) RDW-CV (test code = 19.1 % 12.1-15.4 H 788-0) PLT (test code = See_Comment [Automated 777-3) message] The sy stem which generated this result transmitted reference range : 150 - 328 10*3/ ?L. The reference r jeff was not used to interpret this result as normal/abnormal . MPV (test code = 9.3 fL 9.8-13.0 L 05981-1) NRBC/100 WBC (test See_Comment [Automat ed code = 6937015696) message] The system which generated this result transmitted reference range : 0.0 - 10.0 /100 WBCs. The refer ence range was not u sed to interpret th is result as normal/abnormal . NRBC x10^3 (test code <0.01 See_Comment [Auto mated = 9909900245) message] The s ystem which generated this result transmitted reference range : 10*3/?L. The reference range was not used to interpret this result as normal/abnormal . GRAN MAT (NEUT) % 67.0 % (test code = 770-8) IMM GRAN % (test code 1.40 % = 2161601230) LYMPH % (test code = 20.4 % 736-9) MONO % (test code = 8.6 % 5905-5) EOS % (test code = 1.3 % 713-8) BASO % (test code = 1.3 % 706-2) GRAN MAT x10^3(ANC) 7.50 10*3/uL 1.99-6.95 H (test code = 2914514275) IMM GRAN x10^3 (test 0.16 10*3/uL 0.00-0.06 H code = 0902409601) LYMPH x10^3 (test code 2.29 10*3/uL 1.09-3.23 = 731-0) MONO x10^3 (test code 0.96 10*3/uL 0.36-1.02 = 742-7) EOS x10^3 (test code = 0.15 10*3/uL 0.06-0.53 711-2) BASO x10^3 (test code 0.15 10*3/uL 0.01-0.09 H = 704-7) Lab Interpretation Abnormal (test code = 55658-4) [facility] [id number] 11:45:17 Test Item Value Reference Range Interpretation Comments MAGNESIUM (test code = 1560413376) 2.2 mg/dL 1.7-2.4 Lab Interpretation (test code = Normal 19089-9) [facility] ([id number])(TOTAL CHOLESTEROL, TRIGLYCERIDES, HDL)2020-12-07 11:45:12 Test Item Value Reference Range Interpretation Comments CHOL (test code = 165 mg/dL 120-200 0754558735) HDL (test code = 12 mg/dL >40 L 8469739782) HDLC RATIO (test code = See_Comment H [Au tomated message] 1615591180) The system [employer] generated this result transmit [place] reference range : <=5.0. The refe rence range was not u sed to interpret th is result as normal/abnormal . TRIG (test code = 390 mg/dL 30-170 H 7901993968) LDL CHOL (test code = 75 mg/dL See_Comment [Auto mated message] 84798-1) The system [employer] generated this result transmit [place] reference range : <=160. The refe rence range was not u sed to interpret th is result as normal/abnormal . VLDL (test code = 78 mg/dL 5-60 H 2507314156) Lab Interpretation (test Abnormal code = 61767-3) [facility] Metabolic Panel (NA, K, CL, CO2, GLUCOSE, BUN, CREATININE, CA)2020-12-07 11:45:11 Test Item Value Reference Range Interpretation Comments NA (test code = 133 mmol/L 135-145 L 1573115515) K (test code = 4.2 mmol/L 3.5-5.0 4831070336) CL (test code = 99 mmol/L 98-108 6070599734) CO2 TOTAL (test code = 21 mmol/L 23-31 L 7221133955) AGAP (test code = 2-16 7584777957) BUN (test code = 18 mg/dL 7-23 3381091627) GLUCOSE (test code = 156 mg/dL 70-110 H 5130860150) CREATININE (test code = 1.09 mg/dL 0.60-1.25 5491818551) CALCIUM (test code = 8.8 mg/dL 8.6-10.6 4970486811) eGFR (test code = mL/min/1.73m2 3755372321) RUCHI (test code = RUCHI) Association of Glomerular Filtration Rate (GFR) and Staging of Kidney Disease* + --+ --+ ------+| GFR (mL/min/1.73 m2) ?| With Kidney Damage ?| ?Without Kidney Damage+ --------+ --------+ +| ?>90 ?| ?Stage one ?| ? Normal ?+ ---+ ---+ -------+| ?60-89 ?| ?Stage two ?| ? Decreased GFR ? + --+ --+ ------+| ?30-59 ?| ?Stage three ?| ? Stage three ? + --+ --+ ------+| ?15-29 ?| ?Stage four ? | ? Stage four ?+ ---+ ---+ -------+| ?<15 (or dialysis) ? ?| ?Stage five ? | ? Stage five ?+ ---+ ---+ -------+ *Each stage assumes the associated GFR level has been in effect for at least three months. ?Stages 1 to 5, with or without kidney disease, indicate chronic kidney disease. Notes: Determination of stages one and two (with eGFR >59mL/min/1.73 m2) requires estimation of kidney damage for at least three months as defined by structural or functional abnormalities of the kidney, manifested by either:Pathological abnormalities or Markers of kidney damage (including abnormalities in the composition of the blood or urine or abnormalities in imaging tests). Lab Interpretation Abnormal (test code = 52126-0) [facility] [id number] 03:10:17 Test Item Value Reference Interpretation Comments Range TROPONIN I (test 0.009 ng/mL See_Comment [Automated code = 9853227054) message] The system which generated this result transmitted reference range : <=0.034. The reference range was not used to interpret this result as normal/abnormal . RUCHI (test code = Reference (Normal) RUCHI) Range (defined by the 99th percentile reference limit): <= 0.034 ng/mL Note: Cardiac troponin begins to rise 3-4 hours after the onset of ischemia. Repeat in 4-6 hours if the sample was drawn within 3-4 hours of the onset of the symptom and found normal. Diagnosis of myocardial injury is made with acute changes in cTn concentrations with at least one serial sample above the 99th percentile upper reference limit (URL), taken together with the patient's clinical presentation. Biotin has been reported to cause a negative bias, interpret results relative to patient's use of biotin. Lab Interpretation Normal (test code = 82759-3) [facility] [id number] 22:11:26 Test Item Value Reference Interpretation Comments Range TROPONIN I (test 0.013 ng/mL See_Comment [Automated code = 0367826972) message] The system which generated this result transmitted reference range : <=0.034. The reference range was not used to interpret this result as normal/abnormal . RUCHI (test code = Reference (Normal) RUCHI) Range (defined by the 99th percentile reference limit): <= 0.034 ng/mL Note: Cardiac troponin begins to rise 3-4 hours after the onset of ischemia. Repeat in 4-6 hours if the sample was drawn within 3-4 hours of the onset of the symptom and found normal. Diagnosis of myocardial injury is made with acute changes in cTn concentrations with at least one serial sample above the 99th percentile upper reference limit (URL), taken together with the patient's clinical presentation. Biotin has been reported to cause a negative bias, interpret results relative to patient's use of biotin. Lab Interpretation Normal (test code = 78852-2) [facility] [id number] 22:08:06 Test Item Value Reference Range Interpretation Comments NT-proBNP (test code 206 pg/mL See_Comment H [Autom ated = 9855768140) message] The system which generated this result transmitted reference range : <=125. The reference range was not used to interpret this result as normal/abnormal . RUCHI (test code = RUCHI) Biotin has been reported to cause a negative bias, interpret results relative to patient's use of biotin. Lab Interpretation Abnormal (test code = 87599-8) [facility] 22:06:02 Test Item Value Reference Range Interpretation Comments MAGNESIUM (test code = 4164569379) 1.1 mg/dL 1.7-2.4 L Lab Interpretation (test code = Abnormal 25573-3) [facility]OLIC [facility] ([id number])2020-12-06 21:59:41 Test Item Value Reference Range Interpretation Comments NA (test code = 131 mmol/L 135-145 L 2928779838) K (test code = 3.1 mmol/L 3.5-5.0 L 7721973415) CL (test code = 98 mmol/L 98-108 2184337012) CO2 TOTAL (test code = 21 mmol/L 23-31 L 5965573671) AGAP (test code = 2-16 4930055985) BUN (test code = 14 mg/dL 7-23 6066453830) GLUCOSE (test code = 132 mg/dL 70-110 H 9747525044) CREATININE (test code = 1.18 mg/dL 0.60-1.25 4737479666) TOTAL BILI (test code = 1.5 mg/dL 0.1-1.1 H 1194678220) CALCIUM (test code = 9.4 mg/dL 8.6-10.6 5088911175) T PROTEIN (test code = 6.3 g/dL 6.3-8.2 9010304958) ALBUMIN (test code = 3.7 g/dL 3.5-5.0 8435370201) ALK PHOS (test code = 89 U/L 34-122 7281649687) ALTv (test code = 17 U/L 5-50 1742-6) AST(SGOT) (test code = 35 U/L 13-40 9499271583) eGFR (test code = mL/min/1.73m2 4847203716) RUCHI (test code = RUCHI) Association of Glomerular Filtration Rate (GFR) and Staging of Kidney Disease* + --+ --+ ------+| GFR (mL/min/1.73 m2) ?| With Kidney Damage ?| ?Without Kidney Damage+ --------+ --------+ +| ?>90 ?| ?Stage one ?| ? Normal ?+ ---+ ---+ -------+| ?60-89 ?| ?Stage two ?| ? Decreased GFR ? + --+ --+ ------+| ?30-59 ?| ?Stage three ?| ? Stage three ? + --+ --+ ------+| ?15-29 ?| ?Stage four ? | ? Stage four ?+ ---+ ---+ -------+| ?<15 (or dialysis) ? ?| ?Stage five ? | ? Stage five ?+ ---+ ---+ -------+ *Each stage assumes the associated GFR level has been in effect for at least three months. ?Stages 1 to 5, with or without kidney disease, indicate chronic kidney disease. Notes: Determination of stages one and two (with eGFR >59mL/min/1.73 m2) requires estimation of kidney damage for at least three months as defined by structural or functional abnormalities of the kidney, manifested by either:Pathological abnormalities or Markers of kidney damage (including abnormalities in the composition of the blood or urine or abnormalities in imaging tests). Lab Interpretation Abnormal (test code = 34262-9) [facility] WITH [id number] 21:44:23 Test Item Value Reference Range Interpretation Comments WBC (test code = See_Comment [Automated 2290-2) message] The sy stem which generated this result transmitted reference range : 4.20 - 10.70 10*3/?L. The reference range was not used to interpret this result as normal/abnormal . RBC (test code = See_Comment [Automated 789-8) message] The sy stem which generated this result transmitted reference range : 4.26 - 5.52 10*6/?L. The reference range was not used to interpret this result as normal/abnormal . HGB (test code = 15.2 g/dL 12.2-16.4 718-7) HCT (test code = 43.2 % 38.4-49.3 4544-3) MCV (test code = 90.0 fL 81.7-95.6 787-2) MCH (test code = 31.7 pg 26.1-32.7 785-6) MCHC (test code = 35.2 g/dL 31.2-35.0 H 786-4) RDW-SD (test code = 63.3 fL 38.5-51.6 H 20131-5) RDW-CV (test code = 19.8 % 12.1-15.4 H 788-0) PLT (test code = See_Comment [Automated 777-3) message] The sy stem which generated this result transmitted reference range : 150 - 328 10*3/ ?L. The reference r jeff was not used to interpret this result as normal/abnormal . MPV (test code = 9.0 fL 9.8-13.0 L 67418-9) NRBC/100 WBC (test See_Comment [Automat ed code = 3853760647) message] The system which generated this result transmitted reference range : 0.0 - 10.0 /100 WBCs. The refer ence range was not u sed to interpret th is result as normal/abnormal . NRBC x10^3 (test code <0.01 See_Comment [Auto mated = 8334921361) message] The s ystem which generated this result transmitted reference range : 10*3/?L. The reference range was not used to interpret this result as normal/abnormal . GRAN MAT (NEUT) % 67.3 % (test code = 770-8) IMM GRAN % (test code 0.90 % = 7351235612) LYMPH % (test code = 21.6 % 736-9) MONO % (test code = 8.9 % 5905-5) EOS % (test code = 0.3 % 713-8) BASO % (test code = 1.0 % 706-2) GRAN MAT x10^3(ANC) 6.28 10*3/uL 1.99-6.95 (test code = 9931126496) IMM GRAN x10^3 (test 0.08 10*3/uL 0.00-0.06 H code = 3607402714) LYMPH x10^3 (test code 2.01 10*3/uL 1.09-3.23 = 731-0) MONO x10^3 (test code 0.83 10*3/uL 0.36-1.02 = 742-7) EOS x10^3 (test code = 0.03 10*3/uL 0.06-0.53 L 711-2) BASO x10^3 (test code 0.09 10*3/uL 0.01-0.09 = 704-7) Lab Interpretation Abnormal (test code = 99972-6) [facility] METABOLIC [id number] 08:15:00 Test Item Value Reference Range Interpretation Comments SODIUM (test code = 135.0 mmol/L 133-144 N NA) POTASSIUM (test 4.7 mmol/L 3.5-5.1 N code = K) CHLORIDE (test code 104 mmol/L 95-105 N = CL) CARBON DIOXIDE 22 mmol/L 21-32 N (test code = CO2) ANION GAP (test 9.0 GAP calc 4.0-15.0 N code = GAP) GLUCOSE (test code 124 MG/DL 70-110 H = GLU) BLOOD UREA NITROGEN 31 MG/DL 7-18 H (test code = BUN) CREATININE (test 1.56 MG/DL 0.55-1.30 H Results may be code = CREAT) depressed if p atient is takingN-Acetylc ystei ne (NAC) and Metamizole (Dipyrone). CALCIUM (test code 8.8 MG/DL 8.5-10.1 N = CA) INDEX HEMOLYSIS 2 TRACE 10-25 See_Comment [Automated message] (test code = MG Index/DL The system [employer] h HEMINDEX) generated this result transmit [place] reference range : 1 NORMAL. The reference range was not used to interpret this result as normal/abnormal . INDEX ICTERIC (test 1 NORMAL <2 MG See_Comment [Auto mated message] code = ICTINDEX) Index/DL The system which generated this result transmit [place] reference range : 1 NORMAL. The reference range was not used to interpret this result as normal/abnormal . INDEX LIPEMIA (test 1 NORMAL <50 MG See_Comment [Aut omated message] code = LIPINDEX) Index/DL The system which generated this result transmit [place] reference range : 1 NORMAL. The reference range was not used to interpret this result as normal/abnormal . CBC W/AUTO [id number] 07:31:00 Test Item Value Reference Range Interpretation Comments WHITE BLOOD CELL (test code = 16.8 K/mm3 4.1-12.1 H WBC) RED BLOOD CELL (test code = RBC) 3.33 M/mm3 3.8-5.5 L HEMOGLOBIN (test code = HGB) 9.9 G/DL 10.6-15.8 L HEMATOCRIT (test code = HCT) 31.6 % 31.8-47.4 L MEAN CELL VOLUME (test code = 94.9 fL 80.1-101.1 N MCV) MEAN CELL HGB (test code = MCH) 29.7 pg 25.3-35.3 N MEAN CELL HGB CONCETRATION (test 31.3 G/DL 32.7-35.1 L code = MCHC) RED CELL DISTRIBUTION WIDTH 13.5 % 12.2-16.4 N (test code = RDW) RED CELL DISTRIBUTION WIDTH 46.6 fL 35.1-43.9 H (test code = RDW-SD) PLATELET COUNT (test code = PLT) 174 K/mm3 155-337 N MEAN PLATELET VOLUME (test code 10.7 fL 7.6-10.4 H = MPV) GRANULOCYTE % (test code = GR%) 80.1 % 37.8-82.6 N IMMATURE GRANULOCYTE % (test 1.0 % 0.0-2.0 N code = IG%) LYMPHOCYTE % (test code = LY%) 6.8 % 14.1-45.4 L MONOCYTE % (test code = MO%) 11.8 % 2.5-11.7 H EOSINOPHIL % (test code = EO%) 0.1 % 0.0-6.2 N BASOPHIL % (test code = BA%) 0.2 % 0.0-2.6 N NUCLEATED RBC % (test code = 0.5 /100WBC% 0.0-1.0 N NRBC%) GRANULOCYTE # (test code = GR#) 13.47 k/mm3 2.0-13.7 N IMMATURE GRANULOCYTE # (test 0.16 K/mm3 0.00-0.03 H code = IG#) LYMPHOCYTE # (test code = LY#) 1.14 K/mm3 0.6-3.8 N MONOCYTE # (test code = MO#) 1.98 K/mm3 0.11-0.59 H EOSINOPHIL # (test code = EO#) 0.02 K/mm3 0.0-0.4 N BASOPHIL # (test code = BA#) 0.03 K/mm3 0.0-0.1 N NUCLEATED RBC # (test code = 0.09 K/mm3 0.00-0.05 H NRBC#) COMPREHENSIVE METABOLIC [id number] 22:54:00 Test Item Value Reference Range Interpretation Comments SODIUM (test code = 133.0 mmol/L 133-144 N NA) POTASSIUM (test code 4.6 mmol/L 3.5-5.1 N = K) CHLORIDE (test code 103 mmol/L 95-105 N = CL) CARBON DIOXIDE (test 24 mmol/L 21-32 N code = CO2) ANION GAP (test code 6.0 GAP calc 4.0-15.0 N = GAP) GLUCOSE (test code = 171 MG/DL 70-110 H GLU) BLOOD UREA NITROGEN 30 MG/DL 7-18 H (test code = BUN) GLOMERULAR 38 estGFR >60 L The estimated FILTRATION RATE glomerular (test code = GFR) filtration rate is computed usingpatient ra ce, age, sex, and s teresa creatinine. If any of theneeded da ta elements are mi ssing the Laboratory can notcompute an estimation of t he glomerular filtration rate .The GFR value units = ml/min/1.73 met er squared. EstimatedGFR va lues above 60 should be interpreted as >60, not anexact number.--- DRUG DOSAGE ALERT -- - Drug dosage adjustments uti lize different calculationpara meter s. CREATININE (test 1.76 MG/DL 0.55-1.30 H Results may be code = CREAT) depressed if p atient is takingN-Acetylc ystei ne (NAC) and Metamizole (Dipyrone). TOTAL PROTEIN (test 6.2 G/DL 6.4-8.2 L code = PROT) ALBUMIN (test code = 3.4 G/DL 3.4-5.0 N ALB) ALBUMIN/GLOBULIN 1.2 RATIO 1.2-2.2 N RATIO (test code = A/G) CALCIUM (test code = 8.5 MG/DL 8.5-10.1 N CA) BILIRUBIN TOTAL 0.24 MG/DL 0.00-1.00 N (test code = BILT) BILIRUBIN DIRECT 0.10 MG/DL 0.00-0.30 N (test code = BILD) BILIRUBIN INDIRECT 0.14 MG/DL 0.2-1.3 L (test code = BILIND) SGOT/AST (test code 16 Unit/L 15-37 N = AST) SGPT/ALT (test code 27 Unit/L 12-78 N = ALT) ALKALINE PHOSPHATASE 48 Unit/L 45-117 N TOTAL (test code = ALKP) INDEX HEMOLYSIS 1 NORMAL <10 See_Comment [Automated message] (test code = MG Index/DL The system [employer] HEMINDEX) generated this result transmit [place] reference range : 1 NORMAL. The reference range was not used to interpret this result as normal/abnormal . INDEX ICTERIC (test 1 NORMAL <2 MG See_Comment [Auto mated message] code = ICTINDEX) Index/DL The system which generated this result transmit [place] reference range : 1 NORMAL. The reference range was not used to interpret this result as normal/abnormal . INDEX LIPEMIA (test 1 NORMAL <50 See_Comment [Automa [place] message] code = LIPINDEX) MG Index/DL The system which generated this result transmit [place] reference range : 1 NORMAL. The reference range was not used to interpret this result as normal/abnormal . Is this a LINE draw? NCOMPREHENSIVE METABOLIC [id number] 22:52:00 Test Item Value Reference Range Interpretation Comments SODIUM (test code = 133.0 mmol/L 133-144 N NA) POTASSIUM (test code 4.6 mmol/L 3.5-5.1 N = K) CHLORIDE (test code 103 mmol/L 95-105 N = CL) CARBON DIOXIDE (test 24 mmol/L 21-32 N code = CO2) ANION GAP (test code 6.0 GAP calc 4.0-15.0 N = GAP) GLUCOSE (test code = 171 MG/DL 70-110 H GLU) BLOOD UREA NITROGEN 30 MG/DL 7-18 H (test code = BUN) GLOMERULAR 38 estGFR >60 L The estimated FILTRATION RATE glomerular (test code = GFR) filtration rate is computed usingpatient ra ce, age, sex, and s teresa creatinine. If any of theneeded da ta elements are mi ssing the Laboratory can notcompute an estimation of t he glomerular filtration rate .The GFR value units = ml/min/1.73 met er squared. EstimatedGFR va lues above 60 should be interpreted as >60, not anexact number.--- DRUG DOSAGE ALERT -- - Drug dosage adjustments uti lize different calculationpara meter s. CREATININE (test 1.76 MG/DL 0.55-1.30 H Results may be code = CREAT) depressed if p atient is takingN-Acetylc ystei ne (NAC) and Metamizole (Dipyrone). TOTAL PROTEIN (test G/DL 6.4-8.2 code = PROT) ALBUMIN (test code = 3.4 G/DL 3.4-5.0 N ALB) ALBUMIN/GLOBULIN RATIO 1.2-2.2 RATIO (test code = A/G) CALCIUM (test code = 8.5 MG/DL 8.5-10.1 N CA) BILIRUBIN TOTAL MG/DL 0.00-1.00 (test code = BILT) BILIRUBIN DIRECT 0.10 MG/DL 0.00-0.30 N (test code = BILD) BILIRUBIN INDIRECT MG/DL 0.2-1.3 (test code = BILIND) SGOT/AST (test code 16 Unit/L 15-37 N = AST) SGPT/ALT (test code 27 Unit/L 12-78 N = ALT) ALKALINE PHOSPHATASE Unit/L 45-117 TOTAL (test code = ALKP) INDEX HEMOLYSIS 1 NORMAL <10 See_Comment [Automated message] (test code = MG Index/DL The system [employer] HEMINDEX) generated this result transmit [place] reference range : 1 NORMAL. The reference range was not used to interpret this result as normal/abnormal . INDEX ICTERIC (test 1 NORMAL <2 MG See_Comment [Auto mated message] code = ICTINDEX) Index/DL The system which generated this result transmit [place] reference range : 1 NORMAL. The reference range was not used to interpret this result as normal/abnormal . INDEX LIPEMIA (test 1 NORMAL <50 See_Comment [Automa america message] code = LIPINDEX) MG Index/DL The system which generated this result transmit [place] reference range : 1 NORMAL. The reference range was not used to interpret this result as normal/abnormal . Is this a LINE draw? N- XR SHOULDER 1 V [id number] 15:15:00 [facility] SPR[facility] : 1950 Sex: M FAX: Michael Valles Jr [phone] [place]: C St: ADM Patient Name: SPRING COOPER Unit No: [id number] EXAMS: CPT CODE: [id number] XR SHOULDER 1 V LT [address] Left shoulder one AP view INDICATION: Postop LOCATION: T18 Changes of reverse shoulder arthroplasty noted in satisfactory position and alignment with no complicating featuresidentified. at 4095 Reported and signed by: Michael Diaz D.O. CC: Michael Valles Jr, MD Dictated Date/ Time: 05/17/2020 (9145)Technologist: Quentin Garcia Transcribed Date/Time: 05/17/2020 (4031) By: Shanti Orig Print D/T: S: 05/17/2020 (2973) SEAN Hooks NAME: SPRING [facility] PHYS: Michael Tovar [address] : 1950 AGE: 69 SEX: Lizzy HOOKS, [place] [address] [place]: [place] [place] PHONE #: [phone] EXAM DATE: 05/17/2020 STATUS: ADM IN FAX #: [phone] RAD NO: DC Dt: PAGE 1 Signed ReportPOC VENOUS BLOOD [id number] 12:52:00 Test Item Value Reference Range Interpretation Comments POC CALCIUM (test code = 1.22 MMOL/L 1.15-1.33 N POCCA) POC VENOUS BLOOD GAS PH (test 7.365 pH units 7.32-7.43 N code = POCPHV) POC VENOUS BLOOD GAS PCO2 41.5 mmHg 41.0-51.0 N (test code = [id number]) POC VENOUS BLOOD GAS PO2 38.6 mmHg 10.0-50.0 N (test code = HYAKR0A) POC HCO3 VENOUS (test code = 23.7 MMOL/L 22.0-29.0 N TUDVVE0I) POC BASE EXCESS VENOUS (test -1.6 MMOL/L -2.0-3.0 N code = POCBEV) POC O2 SATURATION VENOUS 71 % 60-80 N (test code = SKMK2WF) PT. HGB (test code = PHGBVBG) 12.8 G/DL 12.0-17.0 N SODIUM (test code = NA/VBG) 137 MMOL/L 138-146 L POTASSIUM (test code = K/VBG) 5.5 MMOL/L 3.5-4.5 H GLUCOSE (test code = GLU/VBG) 114 MG/DL 74-100 H HEMATOCRIT (test code = 38.0 % 38.0-51.0 N HCT/VBG) O2 CONTENT (test code = O2CT) 23.7 mL/dL 15.0-23.0 H POC SAMPLE SOURCE (test code Venous Descript Specimen = POCSAMPLE) COVID 19 Asymptomatic IH [id number] 09:29:00 Test Item Value Reference Range Interpretation Comments COVID 19 Asymptomatic IH AG (test Negative Neg code = COVNONPUIAG) Specimen comments: PREOP- XR CHEST 2 [id number] 14:12:00 [facility] SPRING COOPER : 1950 Sex: M FAX: Michael Valles [phone] [place]: St: PRE Patient Name: SPRING COOPER Unit No: [id number] EXAMS: CPT CODE: [id number] XR CHEST 2 V 32556 INDICATION: PRE OP, COPD LOCATION: T18 COMPARISON STUDY: comparison not available. FINDINGS: 2 views of the chest. Lungs are hyperinflated. 2.5 cm nodularity overlying the right hilar region and 11 mm pulmonary nodularity overlying the left upper lobe. There is no pneumothorax or pleural fluid. The heart size and pulmonary vasculature are within normal limits. Chronic appearing deformity of the right humeral head which may be degenerative or posttraum atic in etiology. IMPRESSION: 1. There is a 2.5 cm pulmonary nodularity overlying the right hilar region and a 1.1 cm pulmonary nodularity overlying the left upper lobe. Recommend further characterization with CT chest without contrast as neoplasm is not excluded. 2. Hyperinflation of lungs consistent with history of COPD. 3. Chronic appearing deformity of the right humeral head which may be degenerative or posttraumatic in etiology. at 1412 Reported and signed by: Spring Reynolds MD CC: Michael Valles Jr, MD Dictated Date/Time: 05/13/2020 (1412)Technologist: Harjinder Chacon Transcribed Date/Time: 05/13/2020 (141) By: [email or web address] Orig Print D/T: S: 05/13/2020 (1415) [facility] NAME: SPRING COOPER [address] [place] [address] PHYS: GOLDIE - Michael Valles, [place] : 1950 AGE: 69 SEX: M [id number] [facility] PHONE #: [phone] EXAM DATE: 05/13/2020 STATUS: PRE [facility] FAX #: [phone] RAD NO: DC Dt: PAGE 1 Signed ReportPOTASSIUM 2020-05-13 13:10:00 Test Item Value Reference Range Interpretation Comments POTASSIUM (test code = K) 4.4 mmol/L 3.5-5.1 N HGB [id number] 13:02:00 Test Item Value Reference Range Interpretation Comments RED BLOOD CELL (test code = RBC) 4.27 M/mm3 3.8-5.5 N HEMOGLOBIN (test code = HGB) 12.7 G/DL 10.6-15.8 N HEMATOCRIT (test code = HCT) 39.7 % 31.8-47.4 N MEAN CELL VOLUME (test code = MCV) 93.0 fL 80.1-101.1 N"
--- NOTE | 2021-01-01 11:36 | RAD REPORT ---
EXAM DESCRIPTION: CT - CTHCSPWOC - 01/01/2021 11:25 am CLINICAL HISTORY: Trauma, head and neck injury. syncope;Pain COMPARISON: Head C Spine Mpr Wo Con dated 05/06/2019 TECHNIQUE: Axial 5 mm thick images of the head were obtained. Axial 2 mm thick images of the cervical spine were obtained with sagittal and coronal reconstruction images generated and reviewed. All CT scans are performed using dose optimization technique as appropriate and may include automated exposure control or mA/KV adjustment according to patient size. FINDINGS: CT HEAD WITHOUT CONTRAST: No acute hemorrhage, hydrocephalus or extra-axial collection is identified.Remote left parietal lobe infarct. Chronic small vessel ischemic changes. The paranasal sinuses and mastoids are clear.The calvarium is intact. CT CERVICAL SPINE WITHOUT CONTRAST: No fracture or subluxation.No prevertebral soft tissues swelling is identified. Carotid artery calcif ications. IMPRESSION: No acute intracranial or cervical spine findings.
[2021-01-01] MEDS ORDERED: NA CHLORIDE 0.9% 1,000 ML ONE (11:37)
[2021-01-01] MEDS ORDERED: THIAMINE 200 MG/2 ML INJ ONE (11:37)
[2021-01-01] MEDS ORDERED: FOLIC ACID 5 MG/ML VIAL ONE (11:38)
[2021-01-01 12:02] LABS: Absolute Lymphocytes (CBC) 1.5 K/uL (0.7-4.9); Basophils % 0.2 % (0-1.3); Hematocrit 42.9 % (39.6-49.0); Lymphocytes % 9.7 % (15.3-44.8); MPV 7.8 fL (7.6-11.3); RBC Red Blood Cell Count 4.43 M/uL (4.33-5.43)
[2021-01-01 12:09] LABS: Protime INR 1.07
[2021-01-01 12:21] LABS: ALT/SGPT 170 U/L (12-78); Albumin 3.8 g/dL (3.4-5.0); Alkaline Phosphatase 89 U/L (45-117); BUN Blood Urea Nitrogen 54 mg/dL (7-18); Bilirubin Direct 0.7 mg/dL (0-0.2); Bilirubin Total 1.4 mg/dL (0.2-1.0); Glucose Level 171 mg/dL (74-106); Lipase 241 U/L (73-393); Magnesium 2.4 mg/dL (1.8-2.4); Protein, Total 7.6 g/dL (6.4-8.2); Sodium Level 138 mmol/L (136-145); Thyroid Stimulating Hormone 0.259 uIU/mL (0.360-3.740); Troponin (Emerg Dept Use Only) < 0.02 ng/mL (0.0-0.045)
[2021-01-01 12:24] LABS: AST/SGOT 389 U/L (15-37); Bicarbonate 14 mmol/L (21-32)
[2021-01-01 12:26] LABS: Potassium 2.9 mmol/L (3.5-5.1)
[2021-01-01] MEDS ORDERED: NA CHLORIDE 0.9% 100 ML ONE (12:35)
[2021-01-01] MEDS ORDERED: MORPHINE 4 MG/ML SYR ONE ×2 (12:35→13:35)
[2021-01-01] MEDS ORDERED: ONDANSETRON 4 MG/2 ML VIAL ONE ×2 (12:35→13:35)
[2021-01-01] MEDS ORDERED: FAMOTIDINE 20 MG/2 ML VIAL IV ONE (12:36)
[2021-01-01] MEDS ORDERED: POTASSIUM 25 MEQ EFFERV TAB ONE (12:36)
[2021-01-01 12:51] LABS: Blood Morphology Comment NOT SEEN (NOT SEEN); Platelet Estimate ADEQ; White Blood Cell Scan OK (OK)
[2021-01-01 12:58] LABS: NT PRO-BNP 793 pg/mL (<125)
--- NOTE | 2021-01-01 13:08 | RAD REPORT ---
EXAM DESCRIPTION: CTStone Protocol - 01/01/2021 12:51 pm CLINICAL HISTORY: FLANK PAIN COMPARISON: <Comparisons> TECHNIQUE: CT of the abdomen and pelvis was performed. All CT scans are performed using dose optimization technique as appropriate and may include automated exposure control or mA/KV adjustment according to patient size. FINDINGS: Lower chest: Small hiatal hernia. Thickened distal esophagus suggesting reflux esophagitis . Liver: Hepatic steatosis. Biliary: No biliary ductal dilatation. Stomach: No significant focal abnormality. Duodenum: No significant focal abnormality. Pancreas: No significant abnormality. Spleen: No significant abnormality. Adrenal: No suspicious lesions. Kidney/ureter: No hydronephrosis. No renal calculi. Retroperitoneum: No retroperitoneal adenopathy. Vascular: No aneurysm. Bowel: No significant focal abnormality. Peritoneum: No ascites or free air. Fat containing inguinal hernias. Bladder: Grossly unremarkable. Reproductive: No adnexal masses. Bones: No acute fracture. Other: n/a IMPRESSION: No acute intra-abdominal or pelvic finding. No urinary tract calculi. Small hiatal herni a with thickened distal esophagus that is only partially imaged. This may reflect esophagitis. Endosc opy could better evaluate.
--- NOTE | 2021-01-01 13:09 | RAD REPORT ---
EXAM DESCRIPTION: RAD - Chest Single View - 01/01/2021 12:43 pm CLINICAL HISTORY: COPD COMPARISON: Chest Single View dated 02/22/2019; Chest Single View dated 01/29/2019; Chest Single View dated 01/19/2019; Chest Single View dated 01/07/2019 FINDINGS: Lines: None. Lungs: No evidence of edema or pneumonia. Pleural: No significant pleural effusions or pneumothorax. Question calcified pleural plaques. Cardiac: The heart size is within normal limits. Bones: No acute fractures. Remote rib fractures. Left shoulder arthroplasty. Right proximal humerus d eformity which is chronic. Other: IMPRESSION: No acute cardiopulmonary disease. The patient may be a candidate for annual low dose lung cancer screening CT.
[2021-01-01 13:10] LABS: Arterial Blood Carboxyhemoglob 1.3 % (0-1.5); Blood O2 Saturation 98.2 % (92-98.5)
--- NOTE | 2021-01-01 13:10 | ER ---
Nurse's Notes [facility] Name: Mega Farnsworth Age: 70 yrs Sex: Male : 1950 Arrival Date: 01/01/2021 Time: 10:32 Bed 17 Private MD: Diagnosis: Chest pain, unspecified;Dehydration;Acute kidney failure, unspecified;Hypokalemia;Elevated white blood cell count;Syncope Near;Alcohol abuse Presentation: 01/01 10:30 Chief complaint: EMS states: LAID DOWN ON THE FLOOR OF [facility] [place] WHEN UNABLE TO BUY BEER. bp Coronavirus screen: At this time, the client does not indicate any symptoms associated with coronavirus-19. Ebola Screen: No symptoms or risks identified at this time. Initial Sepsis Screen: Does the patient meet any 2 criteria? No. Patient's initial sepsis screen is negative. Does the patient have a suspected source of infection? No. Patient's initial sepsis screen is negative. Risk Assessment: Do you want to hurt yourself or someone else? Patient reports no desire to harm self or others. Onset of symptoms was January 01, 2021 at 10:00. Care prior to arrival: Glucose check: 147. 10:30 Method Of Arrival: EMS: [facility] bp 10:30 Acuity: DOMENICO 3 bp Triage Assessment: 10:30 General: Appears in no apparent distress. comfortable, unkempt, Behavior is bp uncooperative. Pain: Denies pain. EENT: No deficits noted. Neuro: Level of Consciousness is awake, alert, Oriented to Appropriate for age. Cardiovascular: No deficits noted. Respiratory: Breath sounds with crackles bilaterally. GI: No signs and/or symptoms were reported involving the gastrointestinal system. : Urine is INCONTINENT. Derm: No deficits noted. Musculoskeletal: No deficits noted. Historical: - Allergies: 10:56 NKDA; bp - PMHx: 10:56 Anxiety; Ulcers; Hypertension; Drug and Alcohol abuse; CVA; COPD; bp - Immunization history:: Adult Immunizations unknown. - Social history:: Smoking status: Patient denies any tobacco usage or history of. Screenin:01 Abuse screen: Denies threats or abuse. Denies injuries from another. Nutritional bp screening: No deficits noted. Tuberculosis screening: No symptoms or risk factors identified. Fall Risk None identified. Assessment: 10:30 General: SEE TRIAGE NOTE. bp 11:53 Reassessment: LABS REDRAWN. PT CONTINUES TO BE AO4 BUT UNCOOPERATIVE, REQUIRING bp FREQUENT NEGOTIATION SIMPLY TO ACCOMPLISH BASIC HEALTH CARE TASKS. 14:29 Reassessment: No changes from previously documented assessment. Patient and/or family bp updated on plan of care and expected duration. Pain level reassessed. HOSPITALIST AT B/S. 16:14 Reassessment: No changes from previously documented assessment. Patient and/or family bp updated on plan of care and expected duration. Pain level reassessed. ADMIT IN PROCESS. 17:39 Reassessment: ADMIT COMPLETE. REPORT TO GIOVANY RN FOR RM 218. bp Vital Signs: 10:30 BP 170 / 95; bp 10:30 BP 117 / 82; Pulse 108; Resp 18; Temp 97.5; Pulse Ox 100% on 4 lpm NC; Weight 74.84 kg; bp 11:30 BP 108 / 69; Pulse 103; Resp 16; Pulse Ox 98% ; bp 12:30 BP 113 / 78; Pulse 97; Resp 17; Pulse Ox 100% ; bp 13:30 BP 109 / 79; Pulse 101; Resp 17; Pulse Ox 100% ; bp 14:30 BP 97 / 75; Pulse 87; Resp 11; Pulse Ox 100% ; bp 16:13 BP 94 / 65; Pulse 84; Resp 18; Pulse Ox 96% ; bp 17:39 BP 97 / 74; Pulse 80; Resp 17; Pulse Ox 95% ; bp NIH Stroke Scale Scores: 11:14 NIHSS Score: 0 stephanie ED Course: 10:30 Arm band placed on. bp 10:32 Patient arrived in ED. eb 10:33 Gustavo Marquez MD is Attending Physician. stephanie 10:34 Carlo Guillen, RN is Primary Nurse. bp 10:56 Triage completed. bp 11:01 Bed in low position. Call light in reach. Side rails up X2. bp 11:15 Inserted saline lock: 20 gauge in left antecubital area, using aseptic technique. Blood bp collected. 11:25 CT Head C Spine In Process Unspecified. EDMS 12:02 Pillow given. em1 12:02 Lab(s) recollected, by me, sent to lab. em1 12:37 EKG done, by ED staff, reviewed by Gustavo Marquez MD. em1 12:43 XRAY Chest (1 view) In Process Unspecified. EDMS 12:51 CT Stone Protocol In Process Unspecified. EDMS 13:00 Patrick Krause MD is Hospitalizing Provider. stephanie 13:22 US Abdomen Limited In Process Unspecified. EDMS 13:33 EKG done, by ED staff, reviewed by Gustavo Marquez MD. em1 13:57 Troponin (emerg Dept Use Only) Sent. bp 17:39 No provider procedures requiring assistance completed. Patient admitted, IV remains in bp place. Administered Medications: 12:28 Discontinued: NS 0.9% 1000 ml IV at 125 ml/hr continuous stephanie 10:50 Drug: NS 0.9% 1000 ml Route: IV; Rate: 125 ml/hr; Site: left antecubital; bp 10:50 Drug: Thiamine 100 mg Route: IV; Rate: per protocol; Site: left antecubital; bp 17:41 Follow up: IV Status: Completed infusion; IV Intake: 100ml bp 12:30 CANCELLED (Duplicate Order): NS 0.9% with KCl 20 mEq/L 1000 ml IV at 125 ml/hr stephanie continuous 12:33 CANCELLED (Duplicate Order): Potassium Chloride 20 mEq IV at per protocol once; stephanie administer over 1-2 hours 12:40 Drug: NS 0.9% 1000 ml Route: IV; Rate: 1 bolus; Site: left antecubital; bp 17:41 Follow up: IV Status: Completed infusion; IV Intake: 1000ml bp 12:56 Drug: Pepcid (famotidine) 20 mg Route: IVP; Site: left antecubital; bp 13:51 Follow up: Response: No adverse reaction bp 13:00 Drug: NS 0.9% with KCl 20 mEq/L 1000 ml Route: IV; Rate: 125 ml/hr; Site: left bp antecubital; 16:15 Follow up: IV Status: Completed infusion; IV Intake: 1000ml bp 13:30 Drug: Aspirin Chewable Tablet 162 mg Route: PO; bp 16:16 Follow up: Response: No adverse reaction bp 13:45 Drug: Lovenox (enoxaparin) 1 mg/kg Route: Sub-Q; Site: left lower abdomen; bp 16:16 Follow up: Response: No adverse reaction bp 13:45 Drug: morphine 4 mg Route: IVP; Site: left antecubital; bp 16:16 Follow up: Response: Pain is decreased bp 13:45 Drug: Zofran (Ondansetron) 4 mg Route: IVP; Site: left antecubital; bp 16:16 Follow up: Response: No adverse reaction bp 13:45 Drug: PlaVIX (clopidogrel) 150 mg Route: PO; bp 16:15 Follow up: Response: No adverse reaction bp 13:45 Drug: Lopressor (metoprolol TARTRATE) 50 mg Route: PO; bp 16:15 Follow up: Response: No adverse reaction bp 13:52 Not Given (Patient Refused): Potassium Effervescent Tablet 50 mEq PO once; dissolve in bp 4 ounces of water or juice 13:53 Drug: Potassium Chloride 20 mEq Route: IV; Rate: per protocol; Site: left antecubital; bp 16:15 Follow up: IV Status: Completed infusion; IV Intake: 100ml bp 16:00 Drug: ProTONIX (pantoprazole) 40 mg Route: IVP; Site: left antecubital; bp 16:17 Follow up: Response: No adverse reaction bp Intake: 16:15 IV: 100ml; Total: 100ml. bp 16:15 IV: 1000ml; Total: 1100ml. bp 17:41 IV: 1000ml; Total: 2100ml. bp 17:41 IV: 100ml; Total: 2200ml. bp Outcome: 13:09 Decision to Hospitalize by Provider. stephanie 17:39 Admitted to Med/surg accompanied by tech, via wheelchair, room 218, Report called to GIOVANY RN 17:39 Condition: stable 17:39 Instructed on the need for admit. 17:42 Patient left the ED. bp NIH Stroke Scale - NIH Stroke Score Date: 01/01/2021 Time: 11:14 Total Score = 0 1a. Level of Consciousness (LOC) - 0(Alert) 1b. Level of Consciousness (LOC) (Month \T\ Age) - 0(Both) 1c. LOC Commands (Open \T\ Closes Eyes/Food Equipment Service Technician) - 0(Both) 2. Best Gaze (Lateral Gaze Paresis) - 0(Normal) 3. Visual Field Loss - 0(No visual loss) 4. Facial Palsy - 0(Normal) 5a. Left Arm: Motor (10-second hold) - 0(No drift) 5b. Right Arm: Motor (10-second hold) - 0(No drift) 6a. Left Leg: Motor (5-second hold - always test supine) - 0(No drift) 6b. Right Leg: Motor (5-second hold - always test supine) - 0(No drift) 7. Limb Ataxia (finger/nose \T\ heel/landeros - test with eyes open) - 0(Absent) 8. Sensory Loss (pinprick arms/legs/face) - 0(Normal) 9. Best Language: Aphasia (description/naming/reading) - 0(No aphasia) 10. Dysarthria (speech clarity - read or repeat words) - 0(Normal) 11. Extinction and Inattention (visual/tactile/auditory/spatial/personal) - 0(No abnormality) Initials: stephanie Signatures: Dispatcher [employer] EDMS Gustavo Marquez MD MD cha Martinez, Eric em1 Peltier, Brian, STEVO RN Elli Covington Corrections: (The following items were deleted from the chart) 13:31 10:30 BP 117 / 82; Pulse 108bpm; Resp 18bpm; Pulse Ox 100% 4 lpm Nasal Cannula; bp Temp 97.5F; bp 13:51 12:50 Potassium Effervescent Tablet 50 mEq PO bp bp
--- NOTE | 2021-01-01 13:10 | EDPHYS ---
Physician Documentation [facility] Name: Mega Farnsworth Age: 70 yrs Sex: Male : 1950 Arrival Date: 01/01/2021 Time: 10:32 Bed 17 Private MD: ED Physician Gustavo Marquez HPI: 01/01 11:12 This 70 yrs old Male presents to ER via EMS with complaints of fall, near stephanie syncope. 11:12 weak, near syncope , walking out of a store. The patient has experienced near-syncope, stephanie felt generally weak, felt like heart was pounding. Onset: The symptoms/episode began/occurred just prior to arrival. Duration: This was a single episode, that lasted 45 second(s). Context: the episode(s) was witnessed, by a bystander, occurred at a parking lot, at a store. Associated injury: The patient did not suffer any apparent associated injury. Associated signs and symptoms: Pertinent positives: dizziness, palpitations. Current symptoms: headache, that is mild. Severity of symptoms: At their worst the symptoms were moderate in the emergency department the symptoms have improved markedly. The patient has not experienced similar symptoms in the past. Historical: - Allergies: 10:56 NKDA; bp - PMHx: 10:56 Anxiety; Ulcers; Hypertension; Drug and Alcohol abuse; CVA; COPD; bp - Immunization history:: Adult Immunizations unknown. - Social history:: Smoking status: Patient denies any tobacco usage or history of. ROS: 11:14 Constitutional: Negative for fever, chills, and weight loss, Eyes: Negative for injury, stephanie pain, redness, and discharge, ENT: Negative for injury, pain, and discharge, Neck: Negative for injury, pain, and swelling, Respiratory: Negative for shortness of breath, cough, wheezing, and pleuritic chest pain, Abdomen/GI: Negative for abdominal pain, nausea, vomiting, diarrhea, and constipation, Back: Negative for injury and pain, : Negative for injury, bleeding, discharge, and swelling, MS/Extremity: Negative for injury and deformity, Skin: Negative for injury, rash, and discoloration, Psych: Negative for depression, anxiety, suicide ideation, homicidal ideation, and hallucinations, Allergy/Immunology: Negative for hives, rash, and allergies, Endocrine: Negative for neck swelling, polydipsia, polyuria, polyphagia, and marked weight changes, Hematologic/Lymphatic: Negative for swollen nodes, abnormal bleeding, and unusual bruising. 11:14 Cardiovascular: Positive for palpitations. 11:14 Neuro: Positive for dizziness, gait disturbance, near syncope, weakness. Exam: 11:14 Constitutional: This is a well developed, well nourished patient who is awake, alert, stephanie and in no acute distress. Head/Face: Normocephalic, atraumatic. Eyes: Pupils equal round and reactive to light, extra-ocular motions intact. Lids and lashes normal. Conjunctiva and sclera are non-icteric and not injected. Cornea within normal limits. Periorbital areas with no swelling, redness, or edema. ENT: Nares patent. No nasal discharge, no septal abnormalities noted. Tympanic membranes are normal and external auditory canals are clear. Oropharynx with no redness, swelling, or masses, exudates, or evidence of obstruction, uvula midline. Mucous membranes moist. Neck: Trachea midline, no thyromegaly or masses palpated, and no cervical lymphadenopathy. Supple, full range of motion without nuchal rigidity, or vertebral point tenderness. No Meningismus. Chest/axilla: Normal chest wall appearance and motion. Nontender with no deformity. No lesions are appreciated. Cardiovascular: Regular rate and rhythm with a normal S1 and S2. No gallops, murmurs, or rubs. Normal PMI, no JVD. No pulse deficits. Respiratory: Lungs have equal breath sounds bilaterally, clear to auscultation and percussion. No rales, rhonchi or wheezes noted. No increased work of breathing, no retractions or nasal flaring. Abdomen/GI: Soft, non-tender, with normal bowel sounds. No distension or tympany. No guarding or rebound. No evidence of tenderness throughout. Back: No spinal tenderness. No costovertebral tenderness. Full range of motion. Skin: Warm, dry with normal turgor. Normal color with no rashes, no lesions, and no evidence of cellulitis. MS/ Extremity: Pulses equal, no cyanosis. Neurovascular intact. Full, normal range of motion. Neuro: Awake and alert, GCS 15, oriented to person, place, time, and situation. Cranial nerves II-XII grossly intact. Motor strength 5/5 in all extremities. Sensory grossly intact. Cerebellar exam normal. Normal gait. Psych: Awake, alert, with orientation to person, place and time. Behavior, mood, and affect are within normal limits. 11:14 Musculoskeletal/extremity: DVT Exam: No signs of deep vein thrombosis. no pain, no swelling, no tenderness, negative Homans' sign noted on exam, no appreciated bluish discoloration, no erythema, no increased warmth. 11:18 ECG was reviewed by the Attending Physician. stephanie 13:38 ECG was reviewed by the Attending Physician. stephanie Vital Signs: 10:30 BP 170 / 95; bp 10:30 BP 117 / 82; Pulse 108; Resp 18; Temp 97.5; Pulse Ox 100% on 4 lpm NC; Weight 74.84 kg; bp 11:30 BP 108 / 69; Pulse 103; Resp 16; Pulse Ox 98% ; bp 12:30 BP 113 / 78; Pulse 97; Resp 17; Pulse Ox 100% ; bp 13:30 BP 109 / 79; Pulse 101; Resp 17; Pulse Ox 100% ; bp 14:30 BP 97 / 75; Pulse 87; Resp 11; Pulse Ox 100% ; bp 16:13 BP 94 / 65; Pulse 84; Resp 18; Pulse Ox 96% ; bp 17:39 BP 97 / 74; Pulse 80; Resp 17; Pulse Ox 95% ; bp NIH Stroke Scale Scores: 11:14 NIHSS Score: 0 stephanie MDM: 10:33 Patient medically screened. stephanie 11:15 Differential Diagnosis altered mental status. Differential Diagnosis: cardiac stephanie arrhythmia, cerebrovascular accident, drug effect, GI bleed, pseudo seizure, seizure, transient ischemic attack, vasovagal episode. Data reviewed: vital signs, nurses notes, EMS record, lab test result(s), EKG, radiologic studies, CT scan, plain films. Data interpreted: service administrator: rate is 108 beats/min, rhythm is regular, Pulse oximetry: on room air is 100 %. Test interpretation: by ED physician or midlevel provider: ECG, plain radiologic studies. Counseling: I had a detailed discussion with the patient and/or guardian regarding: the historical points, exam findings, and any diagnostic results supporting the discharge/admit diagnosis, lab results, radiology results, the need for further work-up and treatment in the hospital. 01/01 10:34 Order name: Basic Metabolic Panel bp 01/01 10:34 Order name: CBC with Diff bp 01/01 10:34 Order name: LFT's bp 01/01 10:34 Order name: Magnesium bp 01/01 10:34 Order name: NT PRO-BNP bp 01/01 10:34 Order name: PT-INR bp 01/01 10:34 Order name: Troponin (emerg Dept Use Only) bp 01/01 10:38 Order name: Basic Metabolic Panel [facility] 01/01 10:38 Order name: CBC with Diff stephanie 01/01 10:38 Order name: LFT's [facility] 01/01 10:38 Order name: Magnesium [facility] 01/01 10:38 Order name: NT PRO-BNP stephanie 01/01 10:38 Order name: PT-INR stephanie 01/01 10:38 Order name: Troponin (emerg Dept Use Only) [facility] 01/01 10:38 Order name: TSH; Complete Time: 13:19 [facility] 01/01 10:38 Order name: AMMONIA; Complete Time: 12:21 [facility] 01/01 10:38 Order name: Acetaminophen; Complete Time: 13:19 [facility] 01/01 10:38 Order name: ETOH Level; Complete Time: 12:21 [facility] 01/01 10:38 Order name: Ptt, Activated; Complete Time: 12:21 [facility] 01/01 10:38 Order name: Salicylate; Complete Time: 12:35 [facility] 01/01 10:38 Order name: Urine Drug Screen; Complete Time: 15:23 [facility] 01/01 10:38 Order name: SARS-COV-2 RT PCR (Document "Date of Onset" if Symptomatic); Complete Time: [facility] 12:01/01 10:38 Order name: Lipase; Complete Time: 13:19 [facility] 01/01 10:38 Order name: Basic Metabolic Panel; Complete Time: 13:19 [facility] 01/01 10:38 Order name: CBC with Automated Diff; Complete Time: 12:56 [facility] 01/01 10:38 Order name: Liver (Hepatic) Function; Complete Time: 13:19 [facility] 01/01 10:38 Order name: Magnesium; Complete Time: 13:19 [facility] 01/01 10:38 Order name: NT PRO-BNP; Complete Time: 13:19 [facility] 01/01 10:38 Order name: Protime (+INR); Complete Time: 12:21 [facility] 01/01 10:38 Order name: Troponin (Emerg Dept Use Only); Complete Time: 13:19 [facility] 01/01 10:34 Order name: EKG; Complete Time: 10:35 bp 01/01 10:38 Order name: XRAY Chest (1 view); Complete Time: 13:19 [facility] 01/01 10:38 Order name: EKG; Complete Time: 10:38 [facility] 01/01 11:11 Order name: CT Head C Spine; Complete Time: 12:21 [facility] 01/01 12:28 Order name: EKG; Complete Time: 12:28 [facility] 01/01 12:28 Order name: US Abdomen Limited; Complete Time: 15:23 [facility] 01/01 12:28 Order name: ABG; Complete Time: 13:19 [facility] 01/01 12:32 Order name: Tylenol Level; Complete Time: 13:19 [facility] 01/01 12:33 Order name: CT Stone Protocol; Complete Time: 13:19 [facility] 01/01 12:51 Order name: CBC Smear Scan; Complete Time: 12:56 [facility] 01/01 13:20 Order name: EKG; Complete Time: 13:21 [facility] 01/01 13:40 Order name: Troponin (emerg Dept Use Only) [facility] 01/01 13:40 Order name: Troponin (Emerg Dept Use Only); Complete Time: 15:23 [facility] 01/01 14:27 Order name: Urine Dipstick-Ancillary; Complete Time: 15:23 [facility] 01/01 14:51 Order name: CONS Physician Consult [facility] 01/01 10:34 Order name: Cardiac monitoring; Complete Time: 11:52 bp 01/01 10:34 Order name: EKG - Nurse/Tech; Complete Time: 11:52 bp 01/01 10:34 Order name: IV Saline Lock; Complete Time: 11:52 bp 01/01 10:34 Order name: Labs collected and sent; Complete Time: 11:52 bp 01/01 10:34 Order name: O2 Per Protocol; Complete Time: 11:52 bp 01/01 10:34 Order name: O2 Sat Monitoring; Complete Time: 11:52 bp 01/01 10:38 Order name: Cardiac monitoring; Complete Time: 10:49 [facility] 01/01 10:38 Order name: EKG - Nurse/Tech; Complete Time: 10:49 [facility] 01/01 10:38 Order name: IV Saline Lock; Complete Time: 11:52 [facility] 01/01 10:38 Order name: Labs collected and sent; Complete Time: 11:52 [facility] 01/01 10:38 Order name: O2 Per Protocol; Complete Time: 10:49 [facility] 01/01 10:38 Order name: O2 Sat Monitoring; Complete Time: 10:49 [facility] 01/01 10:38 Order name: Urine Dipstick-Ancillary (obtain specimen); Complete Time: 15:16 [facility] 01/01 11:44 Order name: Labs - recollect needed: purple and blue top recollect/ hemolyzed sample; eb Complete Time: 12:02 01/01 12:28 Order name: EKG - Nurse/Tech; Complete Time: 12:37 [facility] 01/01 12:29 Order name: IV Saline Lock - Large Bore; Complete Time: 12:55 [facility] 01/01 13:20 Order name: EKG - Nurse/Tech; Complete Time: 13:32 [facility] EC:18 Rate is 107 beats/min. Rhythm is regular. QRS Richardson is Normal. MN interval is normal. [facility] QRS interval is normal. QT interval is prolonged at 404 msec. No Q waves. T waves are Normal. ST Segment is depressed in leads II, III, aVF. Clinical impression: Sinus tachycardia. Interpreted by me. Reviewed by me. 13:38 Rate is 100 beats/min. Rhythm is regular. QRS Richardson is Normal. MN interval is normal. [facility] QRS interval is normal. QT interval is normal. No Q waves. T waves are Normal in leads II, III, aVF, V1, V2, V3, V4, V5, V6. Administered Medications: 12:28 Discontinued: NS 0.9% 1000 ml IV at 125 ml/hr continuous stephanie 10:50 Drug: NS 0.9% 1000 ml Route: IV; Rate: 125 ml/hr; Site: left antecubital; bp 10:50 Drug: Thiamine 100 mg Route: IV; Rate: per protocol; Site: left antecubital; bp 17:41 Follow up: IV Status: Completed infusion; IV Intake: 100ml bp 12:30 CANCELLED (Duplicate Order): NS 0.9% with KCl 20 mEq/L 1000 ml IV at 125 ml/hr stephanie continuous 12:33 CANCELLED (Duplicate Order): Potassium Chloride 20 mEq IV at per protocol once; [facility] administer over 1-2 hours 12:40 Drug: NS 0.9% 1000 ml Route: IV; Rate: 1 bolus; Site: left antecubital; bp 17:41 Follow up: IV Status: Completed infusion; IV Intake: 1000ml bp 12:56 Drug: Pepcid (famotidine) 20 mg Route: IVP; Site: left antecubital; bp 13:51 Follow up: Response: No adverse reaction bp 13:00 Drug: NS 0.9% with KCl 20 mEq/L 1000 ml Route: IV; Rate: 125 ml/hr; Site: left bp antecubital; 16:15 Follow up: IV Status: Completed infusion; IV Intake: 1000ml bp 13:30 Drug: Aspirin Chewable Tablet 162 mg Route: PO; bp 16:16 Follow up: Response: No adverse reaction bp 13:45 Drug: Lovenox (enoxaparin) 1 mg/kg Route: Sub-Q; Site: left lower abdomen; bp 16:16 Follow up: Response: No adverse reaction bp 13:45 Drug: morphine 4 mg Route: IVP; Site: left antecubital; bp 16:16 Follow up: Response: Pain is decreased bp 13:45 Drug: Zofran (Ondansetron) 4 mg Route: IVP; Site: left antecubital; bp 16:16 Follow up: Response: No adverse reaction bp 13:45 Drug: PlaVIX (clopidogrel) 150 mg Route: PO; bp 16:15 Follow up: Response: No adverse reaction bp 13:45 Drug: Lopressor (metoprolol TARTRATE) 50 mg Route: PO; bp 16:15 Follow up: Response: No adverse reaction bp 13:52 Not Given (Patient Refused): Potassium Effervescent Tablet 50 mEq PO once; dissolve in bp 4 ounces of water or juice 13:53 Drug: Potassium Chloride 20 mEq Route: IV; Rate: per protocol; Site: left antecubital; bp 16:15 Follow up: IV Status: Completed infusion; IV Intake: 100ml bp 16:00 Drug: ProTONIX (pantoprazole) 40 mg Route: IVP; Site: left antecubital; bp 16:17 Follow up: Response: No adverse reaction bp Disposition Summary: 01/01/21 13:09 Hospitalization Ordered Hospitalization Status: Inpatient Admission stephanie Provider: Patrick Krause cha Location: Telemetry/MedSurg (Inpatient) stephanie Condition: Fair stephanie Problem: new stephanie Symptoms: have improved stephanie Bed/Room Type: Standard stephanie Room Assignment: [id number](01/01/21 16:52) eb Diagnosis - Chest pain, unspecified stephanie - Dehydration stephanie - Acute kidney failure, unspecified stephanie - Hypokalemia stephanie - Elevated white blood cell count stephanie - Syncope Near stephanie - Alcohol abuse stephanie Forms: - Medication Reconciliation Form stephanie - SBAR form stephanie NIH Stroke Scale - NIH Stroke Score Date: 01/01/2021 Time: 11:14 Total Score = 0 1a. Level of Consciousness (LOC) - 0(Alert) 1b. Level of Consciousness (LOC) (Month \\T\\ Age) - 0(Both) 1c. LOC Commands (Open \\T\\ Closes Eyes/It Technical Support Specialist) - 0(Both) 2. Best Gaze (Lateral Gaze Paresis) - 0(Normal) 3. Visual Field Loss - 0(No visual loss) 4. Facial Palsy - 0(Normal) 5a. Left Arm: Motor (10-second hold) - 0(No drift) 5b. Right Arm: Motor (10-second hold) - 0(No drift) 6a. Left Leg: Motor (5-second hold - always test supine) - 0(No drift) 6b. Right Leg: Motor (5-second hold - always test supine) - 0(No drift) 7. Limb Ataxia (finger/nose \\T\\ heel/landeros - test with eyes open) - 0(Absent) 8. Sensory Loss (pinprick arms/legs/face) - 0(Normal) 9. Best Language: Aphasia (description/naming/reading) - 0(No aphasia) 10. Dysarthria (speech clarity - read or repeat words) - 0(Normal) 11. Extinction and Inattention (visual/tactile/auditory/spatial/personal) - 0(No abnormality) Initials: stephanie Signatures: Dispatcher [employer] EDME Gustavo Marquez MD MD cha Peltier, Brian RN RN Elli Covington Corrections: (The following items were deleted from the chart) 11:02 10:35 Chest Single View+[email or web address].[email or web address] ordered. EDME EDME 11:42 10:38 Suicide Screening ([facility]) ordered. stephanie iw 12:30 12:29 NS 0.9% with KCl 20 mEq/L 1000 ml IV at 125 ml/hr continuous ordered. stephanie stephanie 12:33 12:28 Potassium Chloride 20 mEq IV at per protocol once; administer over 1-2 stephanie hours ordered. [facility] 14:33 12:36 Jerome ordered. [facility] bp 16:52 13:09 stephanie eb
[2021-01-01] MEDS ORDERED: ENOXAPARIN 80 MG/0.8 ML SQ ONE (13:36)
[2021-01-01] MEDS ORDERED: ASPIRIN 81 MG CHEWABLE TABLET ONE (13:36)
[2021-01-01] MEDS ORDERED: NS KCL 20MEQ 1,000 ML IV ONE (13:37)
[2021-01-01] MEDS ORDERED: METOPROLOL TAR 50 MG TAB ONE (13:42)
[2021-01-01] MEDS ORDERED: KCL 20 MEQ/100 mL IVPB 20 MEQ/100 ML BAG IV ONE (13:42)
[2021-01-01] MEDS ORDERED: CLOPIDOGREL 75 MG TABLET ONE (13:42)
[2021-01-01 14:27] LABS: Urine Blood 1+ (Negative); Urine Glucose Negative (Negative); Urine Protein 1+ (Negative); Urine Specific Gravity 1.015 (1.005-1.030); Urine pH 5.5 (5.0-7.0)
--- NOTE | 2021-01-01 14:34 | RAD REPORT ---
EXAM DESCRIPTION: US - Abdomen Exam Limited - 01/01/2021 1:22 pm CLINICAL HISTORY: ABD PAIN COMPARISON: Stone Protocol dated 01/01/2021 FINDINGS: Increased echogenicity liver consistent with hepatic steatosis. Gallbladder sludge is pres ent. No shadowing stones. No biliary ductal dilatation. No gallbladder thickening. IMPRESSION: Negative for cholelithiasis or acute cholecystitis. Sludge is noted. Hepatic steatosis.
[2021-01-01 14:41] LABS: Barbiturates NEGATIVE (NEGATIVE); Benzodiazepines NEGATIVE (NEGATIVE); Cocaine NEGATIVE (NEGATIVE); METHAMPHETAM NEGATIVE (NEGATIVE); Methadone NEGATIVE (NEGATIVE); Opiates NEGATIVE (NEGATIVE); Phencyclidine NEGATIVE (NEGATIVE); THC Cannibis NEGATIVE (NEGATIVE)
--- NOTE | 2021-01-01 15:07 | P.HP ---
Certification for Inpatient Patient admitted to: Observation With expected LOS: <2 Midnights Practitioner: I am a practitioner with admitting privileges, knowledge of patient current condition, hospital course, and medical plan of care. Services: Services provided to patient in accordance with Admission requirements found in Title 42 Section 412.3 of the Code of Federal Regulations Patient History Date of Service: 01/01/21 Reason for admission: Chest pain, LEA, tylenol toxicity History of Present Illness: Patient reports chest pain since 6 AM this morning, he was laying in his bed when this began. Its been constant sensation of pressure, as if somebody sitting on his left side of his chest. He denies having this pain previously. He has multiple prior presentations to ER for similar chest pain. Reports only other symptom of the emergency room was that he was at a gas station this morning, and as he was walking out he fell, his slid on something. Fell onto his right shoulder. Reports some mild discomfort of his right shoulder. Otherwise denies any fever/chills, no nausea/vomiting, no diarrhea. Last bowel movement was 3 days ago, he states this is typical for him. Does not typically eat much due to the minimal appetite which is chronic. He reports he typically drinks "a lot" of water daily, and only medications he takes it is 1 daily ibuprofen tablet and 1 daily Tylenol tablet. In the ED, work-up noted LEA, leukocytosis, hypokalemia, CT showed some esophagitis, and fatty liver. Also noted to have > 50 ug/ml Acetaminophen level. Reports last took tylenol yesterday morning. Initial EKG and troponin negative/no signs of acute ischemic events. ER physician requesting admission for further evaluation and treatment. Allergies No Known Drug Allergies Allergy (Verified 06/23/15 20:10) Unknown Home Medications: Lisinopril [Zestril] 10 mg PO DAILY 08/25/15 Pantoprazole [Protonix Tab*] 40 mg PO DAILY #30 tab 12/13/15 Atorvastatin Calcium 20 mg PO DAILY #30 tablet 01/08/19 Nitroglycerin [Nitrostat*] 0.4 mg SL UD PRN #30 tab 01/08/19 icosapent ethyL [Vascepa 1 gm Cap] 1 gm PO BID 01/19/19 Acetaminophen [8 Hour Acetaminophen] 650 mg PO Q6HR PRN #30 tablet.er 01/27/19 Albuterol Neb [Proventil 0.083% Neb Soln] 2.5 mg NEB H3NATIT PRN amp 01/27/19 Nicotine [Nicoderm*] 14 mg TD DAILY #30 patch.td24 01/27/19 - Past Medical/Surgical History Diabetic: No -: Hypertension -: Anxiety -: GERD -: COPD -: History of Gastric ulcer -: Alcohol Abuse -: Nicotine dependence -: Gastric ulcer repair -: Vasectomy x2 Psychosocial/ Personal History: He is single, has 5 children, he does not work. - Family History Father -: Hypertension, Stroke Notes: Mother -: Hypertension, Stroke Notes: - Social History Smoking Status: Current every day smoker Alcohol use: Yes CD- Drugs: No Caffeine use: No Review of Systems 10-point ROS is otherwise unremarkable Physical Examination - Physical Exam General: Alert, In no apparent distress, Oriented x3 HEENT: EOMI, Sclerae nonicteric Neck: No LAD Respiratory: Clear to auscultation bilaterally, Normal air movement Cardiovascular: No edema, Regular rate/rhythm, No murmurs Gastrointestinal: Soft and benign, Non-distended, Tenderness (epigastric - moderate) Musculoskeletal: No erythema, Tenderness (L chest wall) Integumentary: No rashes, No significant lesion Neurological: Normal speech, Normal strength at 5/5 x4 extr, Sensation intact, Normal affect - Studies Laboratory Data (last 24 hrs) 01/01/21 11:55: PT 12.3, INR 1.07, APTT 23.8 L 01/01/21 11:55: WBC 15.40 H, Hgb 14.1, Hct 42.9, Plt Count 326 01/01/21 11:20: Sodium 138, Potassium 2.9 L*, BUN 54 H, Creatinine 2.00 H, Glucose 171 H, Magnesium 2.4 D, Total Bilirubin 1.4 H, AST 389 H*, ALT 170 H, Alkaline Phosphatase 89, Lipase 241 Assessment and Plan - Advance Directives Does patient have a Living Will: No Does patient have a Durable POA for Healthcare: No Physician Review Additional Text: Problem list Chest pain Esophagitis Acetaminophen toxicity Hypertension Elevated LFTs Mild hyperbilirubinemia History of drug and alcohol abuse Remote CVA COPD Nicotine dependence Trend troponin, monitor on telemetry, aspirin, beta albina Patient's pain seems to be reproducible with palpation of left chest, less likely be cardiac in origin Patient is a poor historian, denies prior medical history, smokes half a pack a day, per chart review was/is an alcoholic. Reports last drink was 5 days ago He also denies history of alcohol withdrawal, review of EMR shows he is gone through active withdrawal in the past. Alcohol level: 0 Elevated acetaminophen blood level, confirmed; states he last took 1 Tylenol tablet yesterday morning. Will start N-acetylcysteine protocol LEA likely prerenal, start IV fluids. consult nephrology DVT prophylaxis Avoid Tylenol and NSAIDs at this time Esophagitis noted on CT scan, start Protonix, Carafate, consult GI Suspect leukocytosis is likely reactive Patient is not appear septic VTE: Lovenox Code: Full Dispo: Anticipate DC home in the next 24-48 hours Time Spent Managing Pts Care (In Minutes): 60
[2021-01-01] MEDS ORDERED: PANTOPRAZOLE 40 MG INJ ONE (15:57)
[2021-01-01] MEDS: D5W IV SCH ×3 (17:00→21:32)
[2021-01-01] MEDS: ACETYLCYSTEINE IV SCH ×4 (17:00→21:32)
[2021-01-01] MEDS: PANTOPRAZOLE 40MG TABLET PO SCH (17:50)
[2021-01-01] MEDS ORDERED: ONDANSETRON 4 MG/2 ML VIAL IV PRN (17:50)
[2021-01-01] MEDS: SUCRALFATE 1GM/10ML UCUP FT SCH ×2 (17:50→21:00)
[2021-01-01] MEDS ORDERED: NA CHLORIDE 0.9% 1,000 ML IV SCH (17:50)
[2021-01-01] MEDS: DEXTROSE 5% IV SCH (18:00)
[2021-01-01] MEDS: METOPROLOL TAR 25 MG TAB PO SCH (18:00)
[2021-01-01] MEDS: WATER IV SCH (18:00)
[2021-01-01] MEDS: NICOTINE 14 MG/PAT TD SCH (18:27)
[2021-01-01] MEDS ORDERED: Acetylcysteine 6000mg/30mL IV ONE (18:28)
[2021-01-01] MEDS: TRAMADOL HCL 50 MG TAB PO PRN (18:29)
[2021-01-01 20:27] LABS: Potassium 3.2 mmol/L (3.5-5.1); Troponin I 0.02 ng/mL (0.0-0.045)
[2021-01-01] MEDS ORDERED: MORPHINE 2 MG/ML SYR IV ONE (21:12)
[2021-01-01] MEDS: ACETYLCYSTEINE 7,000 MG in D5W 1,000 ML IV SCH (22:00)
[2021-01-02] MEDS: DEXTROSE 5% IV SCH (00:20)
[2021-01-02] MEDS: WATER IV SCH (00:20)
[2021-01-02] MEDS: ACETYLCYSTEINE IV SCH (00:20)
[2021-01-02] MEDS ORDERED: NA CHLORIDE 0.9% 500 ML IV ONE (01:25)
[2021-01-02] MEDS: SUCRALFATE 1GM/10ML UCUP FT SCH ×5 (01:37→20:24)
[2021-01-02] MEDS ORDERED: NA CHLORIDE 0.9% 1,000 ML IV SCH (02:21)
[2021-01-02] MEDS: TRAMADOL HCL 50 MG TAB PO PRN ×4 (03:37→23:35)
[2021-01-02] MEDS ORDERED: D5W 1,000 ML IV ONE (04:25)
[2021-01-02] MEDS: ACETYLCYSTEINE 7,000 MG in D5W 1,000 ML IV SCH (04:35)
--- NOTE | 2021-01-02 05:38 | P.CNS ---
Date of Consult: 01/01/21 Chief Complaint: Chest pain, MAK, tylenol toxicity History of Present Illness: Pt is a 70 y/o male with past medical hx of hypertension, presenting with complaints of chest pain who presented s/p fall in the gas station. Pt states he hit his right shoulder. Pt at this time denies any chest pain. On evaluation in the ED, vitals including blood pressure appeared somewhat stable, however, had a drop in the 90s systolic. Labs pertinent for creatinine of 2 compared to baseline of 1 in 2019. Pt noted to be acidotic with positive acetaminophen level of 45. Pt recieved acetadote and has been getting IVF, Renal has been consulted for management of MAK and acidosis Allergies No Known Drug Allergies Allergy (Verified 06/23/15 20:10) Unknown Home Medications: Acetaminophen [8 Hour Acetaminophen] 500 mg PO DAILY 01/01/21 - Past Medical/Surgical History Diabetic: No -: Hypertension -: Anxiety -: GERD -: COPD -: History of Gastric ulcer -: Alcohol Abuse -: Nicotine dependence -: Gastric ulcer repair -: Vasectomy x2 Psychosocial/ Personal History: He is single, has 5 children, he does not work. - Family History Father Medical History: Hypertension, Stroke Notes: Mother Medical History: Hypertension, Stroke Notes: - Social History Smoking Status: Current every day smoker Alcohol use: Yes CD- Drugs: No Caffeine use: No Place of Residence: Home Review of Systems 10-point ROS is otherwise unremarkable Physical Examination Temp Pulse Resp BP Pulse Ox 97.6 F 58 18 108/64 99 01/02/21 04:00 01/02/21 04:00 01/02/21 04:00 01/02/21 04:00 01/02/21 04:00 General: Alert, In no apparent distress HEENT: Atraumatic, PERRLA, Mucous membr. moist/pink, EOMI, Sclerae nonicteric Neck: Supple, 2+ carotid pulse no bruit, No LAD, Without JVD or thyroid abnormality Cardiovascular: Regular rate/rhythm, Normal S1 S2 Gastrointestinal: Normal bowel sounds, No tenderness Musculoskeletal: No tenderness Integumentary: No rashes Neurological: Normal gait, Normal speech, Normal tone, Normal affect Laboratory Data (last 24 hrs) 01/01/21 11:55: PT 12.3, INR 1.07, APTT 23.8 L 01/01/21 11:55: WBC 15.40 H, Hgb 14.1, Hct 42.9, Plt Count 326 01/01/21 11:20: Sodium 138, Potassium 2.9 L*, BUN 54 H, Creatinine 2.00 H, Glucose 171 H, Magnesium 2.4 D, Total Bilirubin 1.4 H, AST 389 H*, ALT 170 H, Alkaline Phosphatase 89, Lipase 241 01/01/21 10:34: PT Cancelled, INR Cancelled 01/01/21 10:34: WBC Cancelled, Hgb Cancelled, Hct Cancelled, Plt Count Cancelled 01/01/21 10:34: Sodium Cancelled, Potassium Cancelled, BUN Cancelled, Creatinine Cancelled, Glucose Cancelled, Magnesium Cancelled, Total Bilirubin Cancelled, AST Cancelled, ALT Cancelled, Alkaline Phosphatase Cancelled Conclusions/Impression: Problems Mak on CKD most likely secondary to prerenal etiology nsaid and acetaminophen use Respiratory alkalosis with Metabolic acidosis Acetaminophen toxicity Hypokalemia Chest pain Hypertension now borderline hypotensive Plan Increase normal saline to 150cc/h Will reassess ABG in the morning and consider acetazolomide to balance out respiratory alkalosis.Pt recieving chloride in normal saline, may not need further acetazolamide Replete potassium which low most likely due to acid base shifts Trend lactic acid level as well Continue acetadote per protocol Trend tylenol level, if tylenol level not improving as need to with ivf. Will consider HD for further clearance Strict i/o Hold off on any nephrotoxins at this time Thank you for this interesting consult. Will continue to follow.
[2021-01-02] MEDS: NA CHLORIDE 0.9% 1,000 ML IV SCH ×4 (05:44→23:59)
[2021-01-02 05:54] LABS: Protime INR 1.57
[2021-01-02] MEDS ORDERED: D5W 1,000 ML with NA BICARB 8.4% 150 MEQ IV SCH ×2 (06:00)
[2021-01-02] MEDS: METOPROLOL TAR 25 MG TAB PO SCH ×2 (06:00→18:06)
--- NOTE | 2021-01-02 06:08 | P.PN ---
Date of Service: 01/02/21 Subjective: Patient upset this morning that nurses and myself have come in to check on him and discharge him from his nap States he feels about the same, continues with the same chest discomfort, right shoulder discomfort Feels the medication is not helping Did not want to answer any further questions ROS: 10 point ROS as noted above, otherwise negative Physical Exam General: Alert, In no apparent distress, Oriented x3 HEENT: EOMI, Sclerae nonicteric Respiratory: Clear to auscultation bilaterally, Normal air movement Cardiovascular: No edema, Regular rate/rhythm, No murmurs Gastrointestinal: Soft and benign, Non-distended, Tenderness (epigastric - moderate) Musculoskeletal: No erythema, Tenderness (L chest wall) Integumentary: No rashes, No significant lesion Problem list Chest pain Esophagitis Acetaminophen toxicity Hypertension Elevated LFTs Mild hyperbilirubinemia History of drug and alcohol abuse Remote CVA COPD Nicotine dependence Troponin remained negative, no events on telemetry, continue aspirin/beta- albina for now Cardiology consulted, suspect unlikely to be cardiac etiology for his chest pain. He has tenderness on the chest wall in the same area that recreates his pain, in addition he has esophagitis noted on CT GI consulted for EGD today Patient is a poor historian, denies prior medical history, smokes half a pack a day, per chart review was/is an alcoholic. Reports last drink was 5 days ago He also denies history of alcohol withdrawal, review of EMR shows he is gone through active withdrawal in the past. Elevated acetaminophen blood level, confirmed; states he last took 1 Tylenol tablet yesterday morning. continue N-acetylcysteine protocol, check acetaminophen level this morning LEA likely prerenal, start IV fluids. consulted nephrology DVT prophylaxis Avoid Tylenol and NSAIDs at this time Esophagitis noted on CT scan, started Protonix, Carafate, consulted GI Suspect leukocytosis is likely reactive Patient does not appear septic VTE: SCDs for EGD Code: Full Dispo: Anticipate DC home in the next 24-48 hours Time Spent Managing Pts Care (In Minutes): 35
[2021-01-02 06:31] LABS: Urine Appearance Clear (Clear); Urine Bilirubin Negative (Negative); Urine Blood 3+ (Negative); Urine Color Yellow (Yellow); Urine Glucose Negative (Negative); Urine Protein Negative (Negative); Urine Specific Gravity 1.015 (1.005-1.030)
[2021-01-02 06:32] LABS: Urine Microscopic Reflex ORDER UMIC
[2021-01-02 06:32] LABS: Blood O2 Saturation 96.4 % (92-98.5)
[2021-01-02 06:33] LABS: Arterial Blood Carboxyhemoglob 0.8 % (0-1.5); Blood Gas Oxyhemoglobin 94.6 % (94-97)
[2021-01-02 06:49] LABS: Urine Bacteria <20 /HPF (NONE SEEN); Urine RBC >50 /HPF (NONE SEEN); Urine Urothelial Cells <5 /HPF (NONE SEEN)
[2021-01-02] MEDS: PANTOPRAZOLE 40MG TABLET PO SCH ×2 (08:05→17:07)
[2021-01-02] MEDS: ASPIRIN EC 81 MG TAB PO SCH (08:05)
[2021-01-02] MEDS: NICOTINE 14 MG/PAT TD SCH (08:05)
[2021-01-02] MEDS: THIAMINE HCL 100 MG TABLET PO SCH (08:05)
[2021-01-02] MEDS ORDERED: ENOXAPARIN 40 MG/0.4 ML SQ SCH (09:00)
[2021-01-02 09:50] LABS: Absolute Lymphocytes (CBC) 1.2 K/uL (0.7-4.9); Basophils % 0.3 % (0-1.3); Hematocrit 42.3 % (39.6-49.0); Lymphocytes % 11.2 % (15.3-44.8); MPV 7.9 fL (7.6-11.3)
[2021-01-02] MEDS ORDERED: LIDOCAINE 1% MPF 5 ML VIAL ONE (12:11)
[2021-01-02] MEDS ORDERED: NS 0.9% VIAL 10 ML ONE (12:11)
[2021-01-02] MEDS ORDERED: Phenylephrine HCl 10 MG/ML 1 ML VIAL ONE (12:11)
[2021-01-02] MEDS ORDERED: propofoL 200 MG/20 ML VIAL IV ONE (12:11)
--- NOTE | 2021-01-02 12:42 | ENDO RPT ---
[address], [address] EGD PROCEDURE REPORT EXAM DATE: 01/02/2021 PATIENT NAME: Mega Farnsworth MR#: [id number] BIRTHDATE: 1950 ATTENDING: Zenon Oliver Dr STATUS: inpatient - 7 INFUSION THERAPY NURSE: Christy Santos RN and Heidi Khoury CST INDICATIONS: The patient is a 70 yr old Male here for an EGD due to chest pain, abnormal CT chest revealing esophagitis PROCEDURE PERFORMED: EGD with biopsy MEDICATIONS: Per Anesthesia. TOPICAL ANESTHETIC: none CONSENT: The patient understands the risks and benefits of the procedure and understands that these risks include, but are not limited to: sedation, allergic reaction, infection, perforation and/or bleeding. Alternative means of evaluation and treatment include, among others: physical exam, x-rays, and/or surgical intervention. The patient elects to proceed with this endoscopic procedure. DESCRIPTION OF PROCEDURE: During intra-op preparation period all mechanical medical equipment was checked for proper function. Hand hygiene and appropriate measures for infection prevention was taken. Procedure, possible complications, and alternatives including but not limited to the possibility of bleeding, perforation, tear, infection, sepsis, need for surgery, need for blood transfusion, and anesthesia related complications were explained to the patient. After the risks, benefits and alternatives of the procedure were thoroughly explained, Informed consent was verified, confirmed and timeout was successfully executed by the treatment team. The patient was placed in the left lateral position. The patient was anesthetized with topical anesthesia. Through the anesthetized oropharyngeal area, the scope was passed without any difficulty. The [id number] ([id number]) endoscope was introduced through the mouth and advanced to the third portion of the duodenum. Retroflexed views revealed a moderate sized hiatal hernia. The gastroscope was then slowly withdrawn and removed. LA class D esophagitis was found in the total esophagus. Small amount of bile reflux was found in the lower esophagus - suctioned out with endoscope. Large amount of retained blie fluid >> food was present in the body of the stomach - most suctioned out with endoscope. Moderate gastritis was found in the body and the antrum of the stomach. Multiple biopsies were obtained and sent to pathology. Duodenitis was found in the bulb of the duodenum. ADVERSE EVENTS: There were no complications. IMPRESSIONS: 1. LA class D esophagitis in the total esophagus 2. Bile reflux in the lower esophagus - suctioned out with endoscope 3. Retained bile fluid >> food in the body of the stomach - most suctioned out with endoscope 4. Moderate gastritis in the body and the antrum of the stomach, s/p biopsies 5. Duodenitis in the bulb of the duodenum RECOMMENDATIONS: 1. await biopsy results 2. acid suppression therapy 3. anti-reflux regimen 4. tobacco cessation REPEAT EXAM: Zenon Oliver Dr eSigned: Zenon Oliver Dr 01/02/2021 12:42 PM cc: CPT CODES: ICD9 CODES: PATIENT NAME: Mega Farnsworth MR#: [id number]
--- NOTE | 2021-01-02 18:04 | P.PN ---
Subjective Date of Service: 01/02/21 Chief Complaint: Chest pain, MAK, tylenol toxicity Pt seen and examined today, does not want to be disturbed. Denies any nausea,vomiting. Poor ros as wants to be left alone. Labs not drawn this morning due to refusal Physical Examination - Vital Signs Temperature: 97.0 F Blood Pressure: 120/70 Pulse: 70 Respirations: 18 Pulse Ox (%): 100 - Physical Exam General: Alert, In no apparent distress HEENT: Atraumatic, PERRLA, EOMI Respiratory: Clear to auscultation bilaterally, Normal air movement Cardiovascular: Regular rate/rhythm, Normal S1 S2 Gastrointestinal: Normal bowel sounds, No tenderness Musculoskeletal: No tenderness Integumentary: No rashes Lymphatics: No axilla or inguinal lymphadenopathy - Studies Laboratory Data (last 24 hrs) 01/02/21 09:39: WBC 11.00 H D, Hgb 13.9, Hct 42.3, Plt Count 182 D 01/02/21 05:30: PT 18.1 H, INR 1.57, APTT 21.8 L 01/02/21 05:30: Troponin I 0.02 01/01/21 19:30: Potassium Cancelled 01/01/21 19:30: Potassium 3.2 L, Troponin I 0.02 Assessment & Plan Physician Review Additional Text: Problems Mak on CKD most likely secondary to prerenal etiology nsaid and acetaminophen use Respiratory alkalosis with Metabolic acidosis Acetaminophen toxicity Hypokalemia Chest pain Hypertension now borderline hypotensive Plan Continue normal saline to 150cc/h Respiratory alkalosis much improved. Continue saline chloride infusion, no indication for acetazolamide Potassium level improving. Pt refused AM labs Continue acetadote per protocol Trend tylenol level, if tylenol level not improving as need to with ivf. clinically stable, acid-base improved. Continue to monitor Strict i/o Hold off on any nephrotoxins at this time Will continue to follow
[2021-01-02 21:25] LABS: Thyroid Stimulating Hormone 0.272 uIU/mL (0.360-3.740)
[2021-01-02 23:01] LABS: Albumin 2.2 g/dL (3.4-5.0); Alkaline Phosphatase 77 U/L (45-117); BUN Blood Urea Nitrogen 40 mg/dL (7-18); Bicarbonate 16 mmol/L (21-32); Glucose Level 90 mg/dL (74-106); Magnesium 1.9 mg/dL (1.8-2.4); Phosphorus 2.4 mg/dL (2.5-4.9); Protein, Total 4.9 g/dL (6.4-8.2); Sodium Level 140 mmol/L (136-145)
[2021-01-02 23:09] LABS: ALT/SGPT 646 U/L (12-78); AST/SGOT 1304 U/L (15-37); Potassium 2.4 mmol/L (3.5-5.1)
[2021-01-02 23:31] LABS: HDL Cholesterol 22 mg/dL (40-60); LDL Cholesterol, Calculated 12 (<130)
[2021-01-02] MEDS: KCL 20 MEQ/100 mL IVPB 20 MEQ/100 ML BAG IV SCH (23:55)
[2021-01-03] MEDS: KCL 20 MEQ/100 mL IVPB 20 MEQ/100 ML BAG IV SCH (02:20)
[2021-01-03] MEDS ORDERED: POTASSIUM PHOS IN 0.9 % NACL 15 MMOL/250 ML BAG IV ONE ×2 (05:00→07:00)
[2021-01-03] MEDS: METOPROLOL TAR 25 MG TAB PO SCH ×2 (05:18→17:47)
[2021-01-03] MEDS: TRAMADOL HCL 50 MG TAB PO PRN (05:19)
[2021-01-03] MEDS: NA CHLORIDE 0.9% 1,000 ML IV SCH (08:40)
--- NOTE | 2021-01-03 10:05 | CON ---
Date of Consultation: 01/02/2021 Reason For Consultation: Atypical chest pain and Tylenol induced acute hepatitis. History Of Present Illness: The patient is a 70-year-old white male with history of hypertension, CO PD, gastric reflux disease, alcohol, tobacco abuse. The patient was admitted to the hospital with ch est pain, acute kidney injury, renal failure, and Tylenol toxicity. The patient is saying he quit al cohol at least a week before coming into the hospital, but he has been taking Tylenol as well. His l iver numbers . His Tylenol level is greater than 50 mcg/mL. He had a CT performed for the chest pain, which revealed esophagitis, which was then reassessed to be moderate to severe, could be seen on a CT scan. The patient denies any reflux, heartburn, nausea, vomiting, bloating, belch, and upper abdominal pain. Past Medical History: Significant for hypertension, COPD, gastric reflux disease, anxiety disorder, gastric ulcer, gastric ulcer surgery, alcohol, tobacco abuse, and vasectomy. Medications: At home include lisinopril, Protonix, atorvastatin, Nitrostat, Vascepa, Tylenol, Proven til, Nicoderm patch. Social History: , 5 kids. Positive for tobacco and alcohol with abuse above. Family History: Father of hypertension, stroke also. He also states his father was an 18 Wheel er 18 hours and had a heat stroke at this time as well with his . Mother of old age of 88. The chart states he may have had hypertension, stroke, as well. Review of Systems: The patient has chest pain. He denies all other symptoms including no melena, hematochezia, coffee-g round emesis, hematuria, dysuria, polydipsia, but no shortness of breath, seizure, syncope, anxiety, depression, and muscle aches joint, backache. The patient has no other symptoms other than the chest pain. His EKGs and troponin have been negative without signs of acute ischemic changes on his test today. Physical Examination: Vital Signs: The patient is 5 feet 4 inches, 171 pounds, BMI 29.4 kg per sq m. Temperature of 97 de grees Fahrenheit, pulse 70, respirations 16, blood pressure 104/66, O2 saturation 96%. General: He is a well-nourished, well-developed male, lying in bed, in no acute distress currently. HEENT: Normocephalic, atraumatic. Anicteric. Pupils are equal, round, and reactive to light. Extr aocular movements are intact. Oropharynx is clear. Neck: Supple. No masses. Respirations: Clear to auscultation bilaterally. Cardiac: Regular rate and rhythm. No gallops or rubs. Abdomen: Positive bowel sounds. Soft, nontender, nondistended. No hepatosplenomegaly. Extremities: No clubbing, cyanosis, edema. 2+ pulses. Neuro: Alert and oriented x3. Grossly nonfocal. 5/5 motor strength. Sensation intact light touch. Laboratory Data: The patient has a white count of 11, down from 15.4 yesterday; hemoglobin 13.9; hem atocrit 42.3; MCV of 99; platelet count of 182, down from 326 yesterday; polys of 82%; lymphocytes 11 %; monocytes 6%. PT on admission was 12.3 down from 18.1; INR of 1.57 on admission, it was 1.07; PTT 21.8. Blood gas; pH 7.450, pCO2 of 26, PO2 of 84. Bicarb 17, and carboxyhemoglobin of 0.8, methemo globin is 1.1. O2 saturation 91.6, . Has a sodium 138; potassium 2.9, up 3.2 after replet ion; chloride 98; bicarb 54, creatinine of 2.0, glucose of 171, calcium 10.0, magnesium 2.4, total bi lirubin 1.4, creatinine of 0.7. AST of 389, ALT of 170, alkaline phosphatase 89, ammonia less than 1 0. Troponin-I of less than 0.02 x3. Bb-type natriuretic peptide is 193. Total protein 7.6, albumin 3.8, lipase 401, which is normal. TSH a little bit low at 0.259. UA, 1+ ketones, 3+ blood, 2.0 uro bilinogen, 50 rbc's. Everything else is negative. Toxicology; Tylenol 53.8 and then 44.5, which are both elevated. Normal BUN 10-30 mcg/mL, and there is up to 44.5 x 3.8. Serum alcohol level is less than 10 on admission. Salicylate level was 2.2, which is low. COVID-[address] a bdomen and pelvis revealed no acute abnormality. A small hiatal hernia with thickening of the distal esophagus consistent with esophagitis and EGD recommended, otherwise negative. Ultrasound was negat yudi except for some possible gallbladder sludge and fatty liver. Chest x-ray was negative. Impression: 1.Atypical chest pain. Cardiac workup today in hospital with the hospitalist was negative, investig ate with esophagogastroduodenoscopy in light of esophagitis noted on CT as well. 2.Abnormal CT revealing esophagitis. We will need to investigate esophagogastroduodenoscopy. The p atient denies reflux, nausea, vomiting, bloating, belching, and he is 70 years of age, had evaluated the esophagogastroduodenoscopy, upper endoscopy. 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 Will need to continue Mucomyst and monitor his PT, INR, and liver panel daily. 4.History of hypertension, chronic obstructive pulmonary disease, gastric reflux disease. 5.Anxiety disorder, gastric ulcer, alcohol abuse, tobacco abuse, gastric surgery, vasecto my. Recommendations: 1.PPI therapy. 2.Esophagogastroduodenoscopy. 3.Tobacco and alcohol cessation. 4.Continue Mucomyst. 5.Check PT, INR, and liver panel daily. 6.Delirium tremens precautions. 7.Benzodiazepines p.r.n. 8.Thiamine and folate. 9.Hepatitis A and B vaccinations. 10.Also rehab on discharge alcohol abuse and Tylenol toxicity now. KARIN/DEMARCUS Voice ID: [id number] Report ID: [id number]
[2021-01-03] MEDS: ASPIRIN EC 81 MG TAB PO SCH (10:32)
[2021-01-03] MEDS: PANTOPRAZOLE 40MG TABLET PO SCH ×2 (10:32→17:48)
[2021-01-03] MEDS: THIAMINE HCL 100 MG TABLET PO SCH (10:32)
[2021-01-03] MEDS: SUCRALFATE 1GM/10ML UCUP FT SCH ×4 (10:33→21:10)
[2021-01-03] MEDS: NICOTINE 14 MG/PAT TD SCH (10:35)
[2021-01-03 10:46] LABS: Absolute Lymphocytes (CBC) 0.9 K/uL (0.7-4.9); Basophils % 0.2 % (0-1.3); Hematocrit 32.6 % (39.6-49.0); Lymphocytes % 10.3 % (15.3-44.8); MPV 8.2 fL (7.6-11.3); RBC Red Blood Cell Count 3.35 M/uL (4.33-5.43)
[2021-01-03 10:52] LABS: Protime INR 1.85
[2021-01-03 11:25] LABS: Albumin 2.1 g/dL (3.4-5.0); Magnesium 1.8 mg/dL (1.8-2.4); Phosphorus 2.4 mg/dL (2.5-4.9); Protein, Total 4.8 g/dL (6.4-8.2)
[2021-01-03 11:29] LABS: Potassium 2.7 mmol/L (3.5-5.1)
[2021-01-03 12:01] LABS: Anisocytosis 1+; Blood Morphology Comment NOTED (NOT SEEN); Platelet Estimate DECR
[2021-01-03] MEDS ORDERED: POTASSIUM CL 40 MEQ in NA CHLORIDE 0.9% 500 ML IV ONE (13:00)
--- NOTE | 2021-01-03 15:46 | P.PN ---
Subjective Date of Service: 01/03/21 Chief Complaint: Chest pain, MAK, tylenol toxicity He states he feels much better today. He states that heart burn has resolved. No issues overnight. Liver enzymes trending up. Physical Examination - Vital Signs Temperature: 97.6 F Blood Pressure: 106/64 Pulse: 69 Respirations: 18 Pulse Ox (%): 99 Assessment And Plan - Plan Physical Exam General: Alert, In no apparent distress, Oriented x3 HEENT: EOMI, Sclerae nonicteric Respiratory: Clear to auscultation bilaterally, Normal air movement Cardiovascular: No edema, Regular rate/rhythm, No murmurs Gastrointestinal: Soft and benign, Non-distended, Tenderness (epigastric - moderate) Musculoskeletal: No erythema, Tenderness (L chest wall) Integumentary: No rashes, No significant lesion Problem list Chest pain Esophagitis Acetaminophen toxicity Hypertension Elevated LFTs Mild hyperbilirubinemia History of drug and alcohol abuse Remote CVA COPD Nicotine dependence Troponin negative, no events on telemetry. continue aspirin/beta-albina for now Seen by cardiology, chest pain considered to be noncardiac. Status post EGD patient noted to have esophagitis and duodenitis History of alcoholism. High risk for alcohol withdrawal. Elevated acetaminophen blood level, confirmed; states he last took 1 Tylenol tablet yesterday morning. Acetaminophen level within normal limits now. Liver enzymes trending up. Patient completed an acetylcysteine for acetaminophen toxicity. Continue to trend LFT. GI to follow. Supportive measures. MAK likely prerenal. Nephrology input appreciated. Continue IV fluid, repeat electrolytes-potassium, phosphorus. Avoid Tylenol and NSAIDs at this time Continue Protonix, Carafate. Leukocytosis resolved. Monitor for alcohol withdrawal. Physician Review Additional Text: Problems Mak on CKD most likely secondary to prerenal etiology nsaid and acetaminophen use Respiratory alkalosis with Metabolic acidosis Acetaminophen toxicity Hypokalemia Chest pain Hypertension now borderline hypotensive Plan Continue normal saline to 150cc/h Respiratory alkalosis much improved. Continue saline chloride infusion, no indication for acetazolamide Potassium level improving. Pt refused AM labs Continue acetadote per protocol Trend tylenol level, if tylenol level not improving as need to with ivf. clinically stable, acid-base improved. Continue to monitor Strict i/o Hold off on any nephrotoxins at this time Will continue to follow
[2021-01-03] MEDS: NS KCL 20MEQ 20 MEQ/1,000 ML BAG IV SCH (16:05)
[2021-01-03] MEDS ORDERED: POTASSIUM PHOS 20 MEQ in NA CHLORIDE 0.9% 250 ML IV ONE (17:00)
[2021-01-03] MEDS: LORazepam 2 MG/ML VIAL IV PRN ×2 (17:48→22:07)
--- NOTE | 2021-01-03 18:12 | P.PN ---
Subjective Date of Service: 01/03/21 Chief Complaint: Chest pain, MAK, tylenol toxicity hepatitis Subjective: Improving (s/p EGD yesterday with severe esophagitis with bile reflux, gastritis, and duodenitis.) Review of Systems Unremarkable General: Weakness (Improving) Physical Examination - Vital Signs Temperature: 97.4 F Blood Pressure: 126/68 Pulse: 73 Respirations: 18 Pulse Ox (%): 97 - Physical Exam General: Alert, In no apparent distress, Oriented x3, Cooperative HEENT: Atraumatic, Normocephalic, PERRLA, EOMI Neck: Supple Respiratory: Normal air movement Cardiovascular: Normal pulses Gastrointestinal: Soft and benign, No tenderness, No masses, No rebound, No guarding Neurological: Normal speech Assessment And Plan - Current Problems (Diagnosis) (1) Abnormal CT of the abdomen Current Visit: Yes Status: Acute (2) Hepatitis, alcoholic Current Visit: Yes Status: Acute (3) Acetaminophen poisoning of undetermined intent Current Visit: Yes Status: Acute (4) Alcohol abuse Current Visit: No Status: Acute (5) Chest pain Onset Date: 06/24/15 Current Visit: No Status: Acute Qualifiers: Chest pain type: intercostal pain Qualified Code(s): R07.82 - Intercostal pain (6) Tobacco abuse Current Visit: No Status: Chronic - Plan REC: 1) continue PPI therapy 2) complete Mucomyst therapy Physician Review Additional Text: Problems Mak on CKD most likely secondary to prerenal etiology nsaid and acetaminophen use Respiratory alkalosis with Metabolic acidosis Acetaminophen toxicity Hypokalemia Chest pain Hypertension now borderline hypotensive Plan Continue normal saline to 150cc/h Respiratory alkalosis much improved. Continue saline chloride infusion, no indication for acetazolamide Potassium level improving. Pt refused AM labs Continue acetadote per protocol Trend tylenol level, if tylenol level not improving as need to with ivf. clinically stable, acid-base improved. Continue to monitor Strict i/o Hold off on any nephrotoxins at this time Will continue to follow
--- NOTE | 2021-01-03 21:19 | P.PN ---
Subjective Date of Service: 01/03/21 Chief Complaint: Chest pain, MAK, tylenol toxicity hepatitis Pt seen and examined today, feels a lot better, reports resolution of chest pain and abdominal pain. Still had some episodes of vomiting and cant keep anything down. Physical Examination - Vital Signs Temperature: 97.4 F Blood Pressure: 126/68 Pulse: 73 Respirations: 18 Pulse Ox (%): 97 - Physical Exam General: Alert, In no apparent distress HEENT: Atraumatic, PERRLA, EOMI Neck: Supple, JVD not distended Cardiovascular: Regular rate/rhythm, Normal S1 S2 Gastrointestinal: Normal bowel sounds, No tenderness Musculoskeletal: No tenderness Integumentary: No rashes Neurological: Normal speech, Normal tone, Normal affect Assessment & Plan Physician Review Additional Text: Problems Mak on CKD most likely secondary to prerenal etiology nsaid and acetaminophen use Respiratory alkalosis with Metabolic acidosis Acetaminophen toxicity Hypokalemia Chest pain Hypertension now borderline hypotensive Plan Kidney function normalized Decrease normal saline to 100cc/h Respiratory alkalosis much improved. Continue saline chloride infusion, no indication for acetazolamide Replete potassium as needed, awaiting morning labs Continue acetadote per protocol Strict i/o Hold off on any nephrotoxins at this time Will continue to follow
[2021-01-04] MEDS: NS KCL 20MEQ 20 MEQ/1,000 ML BAG IV SCH ×3 (01:17→19:00)
[2021-01-04] MEDS ORDERED: ALBUTEROL 2.5 MG/3 ML NEB SOL NEB PRN (03:46)
[2021-01-04] MEDS ORDERED: IPRATROPIUM BROM 0.5MG/2.5ML NEB PRN (03:46)
[2021-01-04 06:14] LABS: Absolute Lymphocytes (CBC) 0.8 K/uL (0.7-4.9); Basophils % 0.2 % (0-1.3); Hematocrit 29.5 % (39.6-49.0); Lymphocytes % 9.1 % (15.3-44.8); MPV 8.1 fL (7.6-11.3); RBC Red Blood Cell Count 2.98 M/uL (4.33-5.43)
[2021-01-04 06:25] LABS: Protime INR 1.55
[2021-01-04] MEDS: METOPROLOL TAR 25 MG TAB PO SCH ×2 (06:50→18:23)
[2021-01-04 06:53] LABS: Albumin 2.1 g/dL (3.4-5.0); Alkaline Phosphatase 174 U/L (45-117); BUN Blood Urea Nitrogen 27 mg/dL (7-18); Bicarbonate 18 mmol/L (21-32); Bilirubin Total 1.1 mg/dL (0.2-1.0); Glucose Level 79 mg/dL (74-106); Protein, Total 4.9 g/dL (6.4-8.2)
[2021-01-04 06:56] LABS: Sodium Level 144 mmol/L (136-145)
[2021-01-04 06:57] LABS: AST/SGOT 1449 U/L (15-37); Potassium 2.9 mmol/L (3.5-5.1)
[2021-01-04 06:58] LABS: ALT/SGPT 863 U/L (12-78)
--- NOTE | 2021-01-04 07:02 | RAD REPORT ---
EXAM DESCRIPTION: RAD - Chest Single View - 01/04/2021 4:24 am CLINICAL HISTORY: dyspnea COMPARISON: Chest Single View dated 01/01/2021; Chest Single View dated 02/22/2019; Chest Single View dated 01/29/2019; Chest Single View dated 01/19/2019 FINDINGS: Lines: None. Lungs: Decreased lung volumes. Increased linear opacity in left mid lung. Pleural: No significant pleural effusions or pneumothorax. Cardiac: Cardiomegaly. Bones: No acute fractures. Left shoulder arthroplasty. Other: IMPRESSION: Decreased lung volumes with new linear opacity left mid lung likely representing subsegm ental atelectasis.
[2021-01-04] MEDS: THIAMINE HCL 100 MG TABLET PO SCH (09:31)
[2021-01-04] MEDS: PANTOPRAZOLE 40MG TABLET PO SCH ×2 (09:31→18:23)
[2021-01-04] MEDS: ASPIRIN EC 81 MG TAB PO SCH (09:31)
[2021-01-04] MEDS: NICOTINE 14 MG/PAT TD SCH (09:32)
[2021-01-04] MEDS: SUCRALFATE 1GM/10ML UCUP FT SCH ×4 (09:32→20:03)
--- NOTE | 2021-01-04 15:11 | P.PN ---
Subjective Date of Service: 01/04/21 Chief Complaint: Chest pain, LEA, tylenol toxicity hepatitis No changes from yesterday. Patient's LFTs continued to trend up. He denies any abdominal pain Physical Examination - Vital Signs Temperature: 97.1 F Blood Pressure: 109/67 Pulse: 90 Respirations: 36 Pulse Ox (%): 98 Assessment And Plan - Plan Physical Exam General: Alert, In no apparent distress, Oriented x3 HEENT: EOMI, Sclerae nonicteric Respiratory: Clear to auscultation bilaterally, Normal air movement Cardiovascular: No edema, Regular rate/rhythm, No murmurs Gastrointestinal: Soft and benign, Non-distended, Tenderness (epigastric - moderate) Integumentary: No rashes, No significant lesion Problem list Chest pain Esophagitis Acetaminophen toxicity Hypertension Elevated LFTs Mild hyperbilirubinemia History of drug and alcohol abuse Remote CVA COPD Nicotine dependence Plan Continue aspirin/beta-albina. Seen by cardiology, chest pain considered to be noncardiac. Status post EGD patient noted to have esophagitis and duodenitis History of alcoholism. High risk for alcohol withdrawal. Acetaminophen level within normal limits now. Liver enzymes trending up. Patient completed 21-hour IV acetylcysteine for acetaminophen toxicity. LFTs continue to trend up. Dr. Oliver informed who recommended to resume N- acetylcysteine and transfer to a tertiary center. Poison control contacted who recommended repeating the 21-hour dosing IV N-acetylcysteine. Case no. [id number]. Continue supportive measures. LEA likely prerenal. Nephrology input appreciated. LEA resolved. Continue IV fluid, repeat electrolytes-potassium, phosphorus. Avoid Tylenol and NSAIDs at this time Continue Protonix, Carafate. Leukocytosis resolved. Monitor for alcohol withdrawal. Transfer to [facility] initiated.
[2021-01-04] MEDS ORDERED: ACETYLCYSTEINE IV ONE (16:00)
[2021-01-04] MEDS ORDERED: D5W IV ONE (16:00)
--- NOTE | 2021-01-04 17:36 | P.PN ---
Subjective Date of Service: 01/04/21 Chief Complaint: Chest pain, MAK, tylenol toxicity hepatitis Subjective: Worsening (AST/ALT and alk phos increasing but PT/INR slightly down. Patient feels fine. 3+ blood and >50 RBCs in urine on U/A.) Physical Examination - Vital Signs Temperature: 97.1 F Blood Pressure: 109/67 Pulse: 90 Respirations: 36 Pulse Ox (%): 98 Assessment And Plan - Current Problems (Diagnosis) (1) Abnormal CT of the abdomen Current Visit: Yes Status: Acute (2) Hepatitis, alcoholic Current Visit: Yes Status: Acute (3) Acetaminophen poisoning of undetermined intent Current Visit: Yes Status: Acute (4) Alcohol abuse Current Visit: No Status: Acute (5) Chest pain Onset Date: 06/24/15 Current Visit: No Status: Acute Qualifiers: Chest pain type: intercostal pain Qualified Code(s): R07.82 - Intercostal pain (6) Tobacco abuse Current Visit: No Status: Chronic - Plan REC: 1) continue PPI therapy 2) repeat Mucomyst therapy due to increasing liver chemistries with Tylenol / EtOH hepatitis 3) consider urology consult for hematuria with tobacco history and/or nephrology (possible new nephritis, though not likely since no protein in U/A) 4) monitor labs, raymond PT/INR and liver panel daily Physician Review Additional Text: Problems Mak on CKD most likely secondary to prerenal etiology nsaid and acetaminophen use Respiratory alkalosis with Metabolic acidosis Acetaminophen toxicity Hypokalemia Chest pain Hypertension now borderline hypotensive Plan Kidney function normalized Decrease normal saline to 100cc/h Respiratory alkalosis much improved. Continue saline chloride infusion, no indication for acetazolamide Replete potassium as needed, awaiting morning labs Continue acetadote per protocol Strict i/o Hold off on any nephrotoxins at this time Will continue to follow
[2021-01-04] MEDS ORDERED: PNEUMOCOCCAL VACCINE 0.5 ML IMVAC ONE (18:30)
[2021-01-04] MEDS ORDERED: INFLUENZA VACCINE (for 6+ mo) 0.5 ML DOSE IMVAC ONE (18:30)
[2021-01-04] MEDS ORDERED: D5W IV SCH (21:00)
[2021-01-04] MEDS ORDERED: ACETYLCYSTEINE IV SCH (21:00)
[2021-01-04] MEDS ORDERED: POTASSIUM 25 MEQ EFFERV TAB PO ONE (22:15)
[2021-01-05 04:56] LABS: Absolute Lymphocytes (CBC) 0.8 K/uL (0.7-4.9); Basophils % 0.1 % (0-1.3); Hematocrit 29.5 % (39.6-49.0); Lymphocytes % 7.9 % (15.3-44.8); MPV 7.9 fL (7.6-11.3); RBC Red Blood Cell Count 3.02 M/uL (4.33-5.43)
[2021-01-05 05:06] LABS: Albumin 1.7 g/dL (3.4-5.0); Alkaline Phosphatase 166 U/L (45-117); BUN Blood Urea Nitrogen 14 mg/dL (7-18); Bicarbonate 23 mmol/L (21-32); Bilirubin Total 0.9 mg/dL (0.2-1.0); Glucose Level 103 mg/dL (74-106); Magnesium 1.7 mg/dL (1.8-2.4); Potassium 3.3 mmol/L (3.5-5.1); Protein, Total 4.5 g/dL (6.4-8.2); Sodium Level 142 mmol/L (136-145)
[2021-01-05 05:11] LABS: ALT/SGPT 661 U/L (12-78); AST/SGOT 587 U/L (15-37); Phosphorus 0.6 mg/dL (2.5-4.9)
[2021-01-05] MEDS: METOPROLOL TAR 25 MG TAB PO SCH ×2 (06:01→18:57)
[2021-01-05] MEDS ORDERED: POTASSIUM 25 MEQ EFFERV TAB PO ONE (06:04)
[2021-01-05] MEDS ORDERED: SODIUM PHOSPHATE 30 MM in NA CHLORIDE 0.9% 500 ML IV ONE (07:00)
[2021-01-05] MEDS ORDERED: POTASSIUM PHOS 30 MM in NA CHLORIDE 0.9% 500 ML IV ONE (09:00)
[2021-01-05] MEDS ORDERED: MAGNESIUM SULFATE 1 gm IVPB 1 GM/100 ML BAG IV ONE ×2 (09:00→19:00)
[2021-01-05] MEDS: TRAMADOL HCL 50 MG TAB PO PRN ×3 (09:34→23:59)
[2021-01-05] MEDS: THIAMINE HCL 100 MG TABLET PO SCH (09:34)
[2021-01-05] MEDS: PANTOPRAZOLE 40MG TABLET PO SCH ×2 (09:35→17:02)
[2021-01-05] MEDS: SUCRALFATE 1GM/10ML UCUP FT SCH ×4 (09:35→21:00)
[2021-01-05] MEDS: NICOTINE 14 MG/PAT TD SCH (09:35)
[2021-01-05 10:10] LABS: Protime INR 1.44
--- NOTE | 2021-01-05 12:29 | P.PN ---
Subjective Date of Service: 01/05/21 Chief Complaint: Chest pain, LEA, tylenol toxicity hepatitis Patient is more awake and alert today. LFTs trended down significantly. He denies any abdominal pain. He has good oral intake. Fever recorded today. Physical Examination - Vital Signs Temperature: 100.8 F Blood Pressure: 114/65 Pulse: 83 Respirations: 27 Pulse Ox (%): 95 Assessment And Plan - Plan Physical Exam General: Alert, In no apparent distress, Oriented x3 HEENT: EOMI, Sclerae nonicteric Respiratory: Clear to auscultation bilaterally, Normal air movement Cardiovascular: No edema, Regular rate/rhythm, No murmurs Gastrointestinal: Soft and benign, Non-distended, Tenderness (epigastric - moderate) Integumentary: No rashes, No significant lesion Problem list Chest pain Esophagitis Acetaminophen toxicity Acute liver failure Hypertension Hyperbilirubinemia History of drug and alcohol abuse Remote CVA COPD Nicotine dependence Plan Continue aspirin/beta-albina. Seen by cardiology, chest pain considered to be noncardiac. Status post EGD patient noted to have esophagitis and duodenitis. Hemoglobin dropped but now stable. Also noted microscopic hematuria. Continue to monitor H&H. Avoid Tylenol and NSAIDs at this time Continue Protonix, Carafate. History of alcoholism. High risk for alcohol withdrawal. Acetaminophen level within normal limits now. Liver enzymes trended up. Patient completed 21-hour IV acetylcysteine for acetaminophen toxicity and restarted on another 21-hour IV N-acetylcysteine. LFTs trended down significantly from yesterday. Coagulation profile also improving. Poison control is following. Case no. [id number]. Dr. Oliver recommended cancelling transfer to tertiary request since his coag profile is improving. Continue supportive measures. LEA likely prerenal. Seen by nephrology. LEA resolved. Continue IV fluid, repeat electrolytes-potassium, phosphorus. Leukocytosis resolved but patient has fever today. We will reculture blood and urine. Monitor for alcohol withdrawal. Repeat UA to follow microscopic hematuria.
[2021-01-05] MEDS ORDERED: NA CHLORIDE 0.9% 50 ML ONE ×2 (14:20→22:11)
[2021-01-05] MEDS ORDERED: CEFTRIAXONE 1000 MG/VIAL ONE (14:23)
[2021-01-05] MEDS: CEFTRIAXONE 1,000 MG in NA CHLORIDE 0.9% 50 ML IVPB SCH (15:05)
[2021-01-05 16:20] LABS: Urine Appearance Clear (Clear); Urine Bilirubin Negative (Negative); Urine Blood 1+ (Negative); Urine Color Yellow (Yellow); Urine Glucose Negative (Negative); Urine Protein 1+ (Negative)
[2021-01-05 17:28] LABS: Urine Bacteria <20 /HPF (NONE SEEN); Urine RBC <5 /HPF (NONE SEEN)
[2021-01-06] MEDS: METOPROLOL TAR 25 MG TAB PO SCH ×2 (05:00→17:33)
[2021-01-06 06:52] LABS: Absolute Lymphocytes (CBC) 0.9 K/uL (0.7-4.9); Basophils % 0.3 % (0-1.3); Hematocrit 26.1 % (39.6-49.0); Lymphocytes % 6.7 % (15.3-44.8); MPV 8.1 fL (7.6-11.3); RBC Red Blood Cell Count 2.68 M/uL (4.33-5.43)
[2021-01-06 07:36] LABS: ALT/SGPT 360 U/L (12-78); AST/SGOT 160 U/L (15-37); Albumin 1.4 g/dL (3.4-5.0); Alkaline Phosphatase 158 U/L (45-117); BUN Blood Urea Nitrogen 8 mg/dL (7-18); Bicarbonate 23 mmol/L (21-32); Bilirubin Total 1.2 mg/dL (0.2-1.0); Glucose Level 78 mg/dL (74-106); Protein, Total 4.4 g/dL (6.4-8.2); Sodium Level 139 mmol/L (136-145)
[2021-01-06 07:38] LABS: Potassium 2.7 mmol/L (3.5-5.1)
[2021-01-06] MEDS: KCL 20 MEQ/100 mL IVPB 20 MEQ/100 ML BAG IV SCH ×3 (09:07→13:35)
[2021-01-06] MEDS: NICOTINE 14 MG/PAT TD SCH (09:08)
[2021-01-06] MEDS: CEFTRIAXONE 1,000 MG in NA CHLORIDE 0.9% 50 ML IVPB SCH (09:08)
[2021-01-06] MEDS: SUCRALFATE 1GM/10ML UCUP FT SCH ×5 (09:08→21:03)
[2021-01-06] MEDS: TRAMADOL HCL 50 MG TAB PO PRN ×2 (09:09→17:33)
[2021-01-06] MEDS: PANTOPRAZOLE 40MG TABLET PO SCH ×2 (09:09→17:33)
[2021-01-06] MEDS: THIAMINE HCL 100 MG TABLET PO SCH (09:10)
--- NOTE | 2021-01-06 13:27 | P.PN ---
Subjective Date of Service: 01/06/21 Chief Complaint: Chest pain, LEA, tylenol toxicity hepatitis Patient is doing much better today. He ambulated with physical therapy today. Shuffling gait is noted. Patient ambulated only a few feet. LFTs trended down significantly. He denies any abdominal pain. He has good oral intake. 1 out of 4 blood culture bottles showing gram-positive cocci on Gram stain. Physical Examination - Vital Signs Temperature: 98.9 F Blood Pressure: 108/62 Pulse: 87 Respirations: 20 Pulse Ox (%): 95 Assessment And Plan - Plan Physical Exam General: Alert, In no apparent distress, Oriented x3 HEENT: EOMI, Sclerae nonicteric Respiratory: Clear to auscultation bilaterally, Normal air movement Cardiovascular: No edema, Regular rate/rhythm, No murmurs Gastrointestinal: Soft and benign, Non-distended, Tenderness (epigastric - moderate) Integumentary: No rashes, No significant lesion Problem list Chest pain Esophagitis Acetaminophen toxicity Acute liver failure Hypertension Hyperbilirubinemia History of drug and alcohol abuse Remote CVA COPD Nicotine dependence Plan Continue aspirin/beta-albina. Seen by cardiology, chest pain considered to be noncardiac. Status post EGD patient noted to have esophagitis and duodenitis. Hemoglobin dropped over the last 24-hours. Repeat UA shows resolved microscopic hematuria. Continue to monitor H&H. Avoid Tylenol and NSAIDs at this time Continue Protonix, Carafate. History of alcoholism. Patient is stable. No symptoms or signs of alcohol withdrawal. Acetaminophen level within normal limits now. Liver enzymes trended up. Patient completed 42 hours of IV acetylcysteine for acetaminophen toxicity. LFTs continue to trend down. Coagulation profile improved. Poison control is following. Case no. [id number]. Continue supportive measures. LEA likely prerenal. Seen by nephrology. LEA resolved. Continue IV fluid. Replete electrolytes-potassium, phosphorus and magnesium as needed. Leukocytosis resolved. 1 blood culture bottle showing gram-positive cocci on Gram stain. UA negative for UTI. Urine culture: No growth. We will add vancomycin. Continue IV Rocephin. We will reculture blood and urine. Monitor for alcohol withdrawal. Patient seen by PT and noted to have shuffling gait. Skilled rehab recommended but patient declined both skilled rehab and home health for PT.
[2021-01-06] MEDS ORDERED: POTASSIUM PHOS 20 MEQ in NA CHLORIDE 0.9% 250 ML IV ONE (13:32)
[2021-01-07] MEDS: TRAMADOL HCL 50 MG TAB PO PRN ×4 (03:03→22:21)
[2021-01-07 05:23] LABS: Absolute Lymphocytes (CBC) 0.9 K/uL (0.7-4.9); Basophils % 0.3 % (0-1.3); Hematocrit 24.2 % (39.6-49.0); Lymphocytes % 6.5 % (15.3-44.8); MPV 7.4 fL (7.6-11.3)
[2021-01-07] MEDS: METOPROLOL TAR 25 MG TAB PO SCH ×2 (05:29→17:00)
[2021-01-07] MEDS ORDERED: MORPHINE 2 MG/ML SYR IV ONE (05:34)
[2021-01-07 05:45] LABS: ALT/SGPT 269 U/L (12-78); AST/SGOT 95 U/L (15-37); Albumin 1.5 g/dL (3.4-5.0); Alkaline Phosphatase 170 U/L (45-117); BUN Blood Urea Nitrogen 7 mg/dL (7-18); Bicarbonate 26 mmol/L (21-32); Bilirubin Total 1.1 mg/dL (0.2-1.0); Glucose Level 100 mg/dL (74-106); Magnesium 1.8 mg/dL (1.8-2.4); Potassium 3.1 mmol/L (3.5-5.1); Protein, Total 4.6 g/dL (6.4-8.2); Sodium Level 140 mmol/L (136-145)
[2021-01-07] MEDS ORDERED: NA CHLORIDE 0.9% 50 ML ONE (07:55)
[2021-01-07] MEDS: PANTOPRAZOLE 40MG TABLET PO SCH ×2 (08:19→16:56)
[2021-01-07] MEDS: CEFTRIAXONE 1,000 MG in NA CHLORIDE 0.9% 50 ML IVPB SCH (08:19)
[2021-01-07] MEDS: THIAMINE HCL 100 MG TABLET PO SCH (08:20)
[2021-01-07] MEDS: NICOTINE 14 MG/PAT TD SCH (08:21)
[2021-01-07] MEDS: SUCRALFATE 1GM/10ML UCUP FT SCH ×6 (08:21→21:06)
[2021-01-07] MEDS ORDERED: POTASSIUM 25 MEQ EFFERV TAB PO ONE (09:00)
[2021-01-07] MEDS ORDERED: MAGNESIUM SULFATE 1 gm IVPB 1 GM/100 ML BAG IV ONE (10:43)
--- NOTE | 2021-01-07 13:00 | P.PN ---
Subjective Date of Service: 01/07/21 Chief Complaint: Chest pain, LEA, tylenol toxicity hepatitis Patient has no complaint today. He is clinically stable. LFTs continue to trend down Patient denies any pain. He has good oral intake. 1 blood culture bottle growing gram-negative rods. Physical Examination - Vital Signs Temperature: 98.3 F Blood Pressure: 121/62 Pulse: 98 Respirations: 20 Pulse Ox (%): 94 Assessment And Plan - Plan Physical Exam General: Alert, In no apparent distress, Oriented x3 HEENT: EOMI, Sclerae nonicteric Respiratory: Clear to auscultation bilaterally, Normal air movement Cardiovascular: No edema, Regular rate/rhythm, No murmurs Gastrointestinal: Soft and benign, Non-distended, Tenderness (epigastric - moderate) Integumentary: No rashes, No significant lesion Problem list Chest pain Esophagitis Acetaminophen toxicity Acute liver failure Hypertension Hyperbilirubinemia History of drug and alcohol abuse Remote CVA COPD Nicotine dependence Plan Continue aspirin/beta-albina. Seen by cardiology, chest pain considered to be noncardiac. Status post EGD patient noted to have esophagitis and duodenitis. Hemoglobin continues to drop.. Repeat UA shows resolved microscopic hematuria. Continue to monitor H&H. Transfuse as needed for hemoglobin less than 7. Avoid Tylenol and NSAIDs at this time Continue Protonix, Carafate. History of alcoholism. Patient is stable. No symptoms or signs of alcohol withdrawal. Acetaminophen level within normal limits now. Patient completed 42 hours of IV acetylcysteine for acetaminophen toxicity and acute liver failure. LFTs has been trending down now. Coagulation profile improved. Poison control is followed for the acetaminophen toxicity. Case no. [id number]. Continue supportive measures. LEA likely prerenal. Seen by nephrology. LEA resolved. Discontinue IV fluid. Leukocytosis resolved. 1 blood culture bottle growing gram-negative barbi. UA negative for UTI. Urine culture: No growth. Continue IV Rocephin and follow urine culture. Repeat blood culture. Patient seen by PT and noted to have shuffling gait. Skilled rehab recommended but patient declined both skilled rehab and home health for PT.
[2021-01-07] MEDS ORDERED: POTASSIUM CL SA 10 MEQ TAB PO ONE (16:25)
[2021-01-08] MEDS: TRAMADOL HCL 50 MG TAB PO PRN ×3 (03:29→16:30)
[2021-01-08] MEDS: METOPROLOL TAR 25 MG TAB PO SCH ×2 (06:01→17:25)
[2021-01-08 06:31] LABS: Protime INR 1.15
[2021-01-08 06:38] LABS: Absolute Lymphocytes (CBC) 0.9 K/uL (0.7-4.9); Basophils % 0.3 % (0-1.3); Hematocrit 22.9 % (39.6-49.0); Lymphocytes % 7.8 % (15.3-44.8); MPV 7.6 fL (7.6-11.3); RBC Red Blood Cell Count 2.35 M/uL (4.33-5.43)
[2021-01-08 06:59] LABS: ALT/SGPT 186 U/L (12-78); AST/SGOT 63 U/L (15-37); Albumin 1.5 g/dL (3.4-5.0); Alkaline Phosphatase 182 U/L (45-117); BUN Blood Urea Nitrogen 6 mg/dL (7-18); Bicarbonate 27 mmol/L (21-32); Bilirubin Direct 0.7 mg/dL (0-0.2); Glucose Level 90 mg/dL (74-106); Magnesium 1.7 mg/dL (1.8-2.4); Potassium 3.5 mmol/L (3.5-5.1); Protein, Total 4.7 g/dL (6.4-8.2); Sodium Level 136 mmol/L (136-145)
[2021-01-08] MEDS ORDERED: CEFTRIAXONE 1000 MG/VIAL ONE (08:21)
[2021-01-08] MEDS ORDERED: NA CHLORIDE 0.9% 50 ML ONE (08:22)
[2021-01-08] MEDS: SUCRALFATE 1GM/10ML UCUP FT SCH ×5 (08:25→21:47)
[2021-01-08] MEDS: CEFTRIAXONE 1,000 MG in NA CHLORIDE 0.9% 50 ML IVPB SCH (08:25)
[2021-01-08] MEDS: PANTOPRAZOLE 40MG TABLET PO SCH ×2 (08:25→16:30)
[2021-01-08] MEDS: NICOTINE 14 MG/PAT TD SCH (08:26)
[2021-01-08] MEDS: THIAMINE HCL 100 MG TABLET PO SCH (08:27)
[2021-01-08] MEDS ORDERED: POTASSIUM CL SA 10 MEQ TAB PO ONE (09:00)
--- NOTE | 2021-01-08 13:16 | P.PN ---
Subjective Date of Service: 01/08/21 Chief Complaint: Chest pain, MAK, tylenol toxicity hepatitis Patient hemoglobin keeps dropping. Now 7.5. He denies any melena. Nursing staff reports no blood in stool. Urine is also clear. No hematuria. He is complaining of feeling hot. No recorded fever today. LFTs has trending down significantly He has good oral intake. Blood culture is growing ESBL E. coli. Physical Examination - Vital Signs Temperature: 99.2 F Blood Pressure: 110/66 Pulse: 98 Respirations: 21 Pulse Ox (%): 95 Assessment And Plan - Plan Physical Exam General: Alert, In no apparent distress, Oriented x3 HEENT: EOMI, Sclerae nonicteric Respiratory: Clear to auscultation bilaterally, Normal air movement Cardiovascular: No edema, Regular rate/rhythm, No murmurs Gastrointestinal: Soft and benign, Non-distended, Tenderness (epigastric - moderate) Integumentary: No rashes, No significant lesion Problem list Chest pain Esophagitis Acetaminophen toxicity Acute liver failure Hypertension Hyperbilirubinemia History of drug and alcohol abuse Remote CVA COPD Nicotine dependence Sepsis E. coli bacteremia. Plan Continue beta-albina. No aspirin due to GI bleed. Seen by cardiology, chest pain considered to be noncardiac. Status post EGD patient noted to have esophagitis and duodenitis. Hemoglobin continues to drop. Repeat UA shows resolved microscopic hematuria. Drop in hemoglobin likely related to GI Continue to monitor H&H. Transfuse as needed for hemoglobin less than 7. Avoid Tylenol and NSAIDs at this time Continue Protonix, Carafate. History of alcoholism. Patient is stable. No symptoms or signs of alcohol with drawal. Acetaminophen toxicity resolved. Patient completed 42 hours of IV acetylcysteine for acetaminophen toxicity and acute liver failure. LFTs continue to trend down. Coagulopathy resolved. Poison control followed patient for the acetaminophen toxicity. Case no. [id number]. Continue supportive measures. MAK likely prerenal. Seen by nephrology. MAK resolved. Patient is eating well. IV fluid discontinued. Leukocytosis resolved. Blood cultures growing ESBL E. coli. UA negative for UTI. Urine culture: No growth. IV Rocephin changed to IV meropenem. Repeat blood culture. Patient seen by PT and noted to have shuffling gait. Skilled rehab recommended but patient declined both skilled rehab and home health for PT. Physician Review Additional Text: Problems Mak on CKD most likely secondary to prerenal etiology nsaid and acetaminophen use Respiratory alkalosis with Metabolic acidosis Acetaminophen toxicity Hypokalemia Chest pain Hypertension now borderline hypotensive Plan Kidney function normalized Decrease normal saline to 100cc/h Respiratory alkalosis much improved. Continue saline chloride infusion, no indication for acetazolamide Replete potassium as needed, awaiting morning labs Continue acetadote per protocol Strict i/o Hold off on any nephrotoxins at this time Will continue to follow
--- NOTE | 2021-01-08 13:30 | P.PN ---
Subjective Date of Service: 01/05/21 Chief Complaint: Chest pain, MAK, tylenol toxicity hepatitis Subjective: Improving (Improving with decreasing liver #s.) Review of Systems 10-point ROS is otherwise unremarkable General: Weakness (Improved. ) Physical Examination - Vital Signs Temperature: 99.2 F Blood Pressure: 110/66 Pulse: 98 Respirations: 21 Pulse Ox (%): 95 - Physical Exam General: Alert, In no apparent distress, Oriented x3, Cooperative HEENT: Atraumatic, Normocephalic, PERRLA, EOMI Neck: Supple Cardiovascular: Normal pulses Gastrointestinal: Soft and benign, No tenderness, No masses, No rebound, No guarding Neurological: Normal speech, Normal strength at 5/5 x4 extr Assessment And Plan - Current Problems (Diagnosis) (1) Abnormal CT of the abdomen Current Visit: Yes Status: Acute (2) Hepatitis, alcoholic Current Visit: Yes Status: Acute (3) Acetaminophen poisoning of undetermined intent Current Visit: Yes Status: Acute (4) Alcohol abuse Current Visit: No Status: Acute (5) Chest pain Onset Date: 06/24/15 Current Visit: No Status: Acute Qualifiers: Chest pain type: intercostal pain Qualified Code(s): R07.82 - Intercostal pain (6) Tobacco abuse Current Visit: No Status: Chronic - Plan REC: 1) continue PPI therapy 2) continue Mucomyst therapy 3) consider urology consult for hematuria with tobacco history and/or nephrology (possible new nephritis, though not likely since no protein in U/A) 4) monitor labs, raymond PT/INR and liver panel daily Physician Review Additional Text: Problems Mak on CKD most likely secondary to prerenal etiology nsaid and acetaminophen use Respiratory alkalosis with Metabolic acidosis Acetaminophen toxicity Hypokalemia Chest pain Hypertension now borderline hypotensive Plan Kidney function normalized Decrease normal saline to 100cc/h Respiratory alkalosis much improved. Continue saline chloride infusion, no indication for acetazolamide Replete potassium as needed, awaiting morning labs Continue acetadote per protocol Strict i/o Hold off on any nephrotoxins at this time Will continue to follow
--- NOTE | 2021-01-08 13:31 | P.PN ---
Subjective Date of Service: 01/06/21 Chief Complaint: Chest pain, MAK, tylenol toxicity hepatitis Subjective: Improving (Still improving liver #s.) Review of Systems Unremarkable Physical Examination - Vital Signs Temperature: 99.2 F Blood Pressure: 110/66 Pulse: 98 Respirations: 21 Pulse Ox (%): 95 - Physical Exam General: Alert, In no apparent distress, Oriented x3, Cooperative HEENT: Atraumatic, Normocephalic, PERRLA, EOMI Neck: Supple Respiratory: Normal air movement Cardiovascular: Normal pulses Gastrointestinal: Soft and benign, No tenderness, No rebound, No guarding Neurological: Normal speech Assessment And Plan - Current Problems (Diagnosis) (1) Abnormal CT of the abdomen Current Visit: Yes Status: Acute (2) Hepatitis, alcoholic Current Visit: Yes Status: Acute (3) Acetaminophen poisoning of undetermined intent Current Visit: Yes Status: Acute (4) Alcohol abuse Current Visit: No Status: Acute (5) Chest pain Onset Date: 06/24/15 Current Visit: No Status: Acute Qualifiers: Chest pain type: intercostal pain Qualified Code(s): R07.82 - Intercostal pain (6) Tobacco abuse Current Visit: No Status: Chronic - Plan REC: 1) continue PPI therapy 2) continue Mucomyst therapy 3) consider urology consult for hematuria with tobacco history and/or nephrology (possible new nephritis, though not likely since no protein in U/A) 4) monitor labs, raymond PT/INR and liver panel daily Physician Review Additional Text: Problems Mak on CKD most likely secondary to prerenal etiology nsaid and acetaminophen use Respiratory alkalosis with Metabolic acidosis Acetaminophen toxicity Hypokalemia Chest pain Hypertension now borderline hypotensive Plan Kidney function normalized Decrease normal saline to 100cc/h Respiratory alkalosis much improved. Continue saline chloride infusion, no indication for acetazolamide Replete potassium as needed, awaiting morning labs Continue acetadote per protocol Strict i/o Hold off on any nephrotoxins at this time Will continue to follow
--- NOTE | 2021-01-08 13:33 | P.PN ---
Subjective Date of Service: 01/07/21 Chief Complaint: Chest pain, MAK, tylenol toxicity hepatitis Subjective: Improving (Improving liver #s.) Review of Systems Unremarkable Physical Examination - Vital Signs Temperature: 99.2 F Blood Pressure: 110/66 Pulse: 98 Respirations: 21 Pulse Ox (%): 95 - Physical Exam General: Alert, In no apparent distress, Oriented x3, Cooperative HEENT: Atraumatic, Normocephalic, PERRLA, EOMI Neck: Supple Cardiovascular: Normal pulses Gastrointestinal: Soft and benign, No tenderness, No rebound, No guarding Neurological: Normal speech Assessment And Plan - Current Problems (Diagnosis) (1) Abnormal CT of the abdomen Current Visit: Yes Status: Acute (2) Hepatitis, alcoholic Current Visit: Yes Status: Acute (3) Acetaminophen poisoning of undetermined intent Current Visit: Yes Status: Acute (4) Alcohol abuse Current Visit: No Status: Acute (5) Chest pain Onset Date: 06/24/15 Current Visit: No Status: Acute Qualifiers: Chest pain type: intercostal pain Qualified Code(s): R07.82 - Intercostal pain (6) Tobacco abuse Current Visit: No Status: Chronic - Plan REC: 1) continue PPI therapy 2) continue Mucomyst therapy 3) consider urology consult for hematuria with tobacco history and/or nephrology (possible new nephritis, though not likely since no protein in U/A) 4) monitor labs, raymond PT/INR and liver panel daily Physician Review Additional Text: Problems Mak on CKD most likely secondary to prerenal etiology nsaid and acetaminophen use Respiratory alkalosis with Metabolic acidosis Acetaminophen toxicity Hypokalemia Chest pain Hypertension now borderline hypotensive Plan Kidney function normalized Decrease normal saline to 100cc/h Respiratory alkalosis much improved. Continue saline chloride infusion, no indication for acetazolamide Replete potassium as needed, awaiting morning labs Continue acetadote per protocol Strict i/o Hold off on any nephrotoxins at this time Will continue to follow
--- NOTE | 2021-01-08 13:35 | P.PN ---
Subjective Date of Service: 01/08/21 Chief Complaint: Chest pain, MAK, tylenol toxicity hepatitis Subjective: Improving (Completed Mucomyst with much improved liver chemistries.) Physical Examination - Vital Signs Temperature: 99.2 F Blood Pressure: 110/66 Pulse: 98 Respirations: 21 Pulse Ox (%): 95 - Physical Exam General: Alert, In no apparent distress, Oriented x3, Cooperative HEENT: Atraumatic, Normocephalic, PERRLA, EOMI Neck: Supple Cardiovascular: Normal pulses Gastrointestinal: Soft and benign, No tenderness, No rebound, No guarding Neurological: Normal speech, Normal strength at 5/5 x4 extr Assessment And Plan - Current Problems (Diagnosis) (1) Abnormal CT of the abdomen Current Visit: Yes Status: Acute (2) Hepatitis, alcoholic Current Visit: Yes Status: Acute (3) Acetaminophen poisoning of undetermined intent Current Visit: Yes Status: Acute (4) Alcohol abuse Current Visit: No Status: Acute (5) Chest pain Onset Date: 06/24/15 Current Visit: No Status: Acute Qualifiers: Chest pain type: intercostal pain Qualified Code(s): R07.82 - Intercostal pain (6) Tobacco abuse Current Visit: No Status: Chronic - Plan REC: 1) continue PPI therapy 2) rehab on discharge 3) consider urology follow-up outpatient for hematuria Physician Review Additional Text: Problems Mak on CKD most likely secondary to prerenal etiology nsaid and acetaminophen use Respiratory alkalosis with Metabolic acidosis Acetaminophen toxicity Hypokalemia Chest pain Hypertension now borderline hypotensive Plan Kidney function normalized Decrease normal saline to 100cc/h Respiratory alkalosis much improved. Continue saline chloride infusion, no indication for acetazolamide Replete potassium as needed, awaiting morning labs Continue acetadote per protocol Strict i/o Hold off on any nephrotoxins at this time Will continue to follow
[2021-01-08] MEDS: Meropenem 500 MG/100 ML BAG IV SCH ×2 (13:55→21:47)
[2021-01-08] MEDS ORDERED: MORPHINE 2 MG/ML SYR IV ONE (23:30)
[2021-01-09] MEDS: TRAMADOL HCL 50 MG TAB PO PRN ×4 (05:52→21:21)
[2021-01-09] MEDS: Meropenem 500 MG/100 ML BAG IV SCH ×3 (05:53→21:21)
[2021-01-09] MEDS: METOPROLOL TAR 25 MG TAB PO SCH ×2 (05:54→18:00)
[2021-01-09 06:25] LABS: Hematocrit 23.8 % (39.6-49.0)
[2021-01-09 06:37] LABS: BUN Blood Urea Nitrogen 7 mg/dL (7-18); Bicarbonate 28 mmol/L (21-32); Glucose Level 89 mg/dL (74-106); Potassium 3.8 mmol/L (3.5-5.1); Sodium Level 134 mmol/L (136-145)
[2021-01-09] MEDS: NICOTINE 14 MG/PAT TD SCH (08:29)
[2021-01-09] MEDS: PANTOPRAZOLE 40MG TABLET PO SCH ×2 (08:29→16:04)
[2021-01-09] MEDS: THIAMINE HCL 100 MG TABLET PO SCH (08:29)
[2021-01-09] MEDS: SUCRALFATE 1GM/10ML UCUP FT SCH ×4 (08:30→21:00)
[2021-01-09] MEDS ORDERED: POTASSIUM CL SA 10 MEQ TAB PO ONE (09:00)
--- NOTE | 2021-01-09 10:56 | P.CNS ---
Date of Consult: 01/09/21 Chief Complaint: Chest pain, LEA, tylenol toxicity hepatitis History of Present Illness: The patient is a 70-year-old male with a past medical history of polysubstance abuse who presented to the emergency department secondary to chest pain. Patient was admitted on 01/01. Patient is a poor historian, as such history obtained via chart review. During hospital course, patient was found to have LEA along with Tylenol toxicity. Unknown if patient was undergoing alcohol withdrawal, he stated that his last drink was 5 days ago. Cardiac workup performed, negative for any acute cardiac process. CT abdomen showed signs of esophagitis, and endoscopy was performed. Blood cultures obtained on 01/05 growing ESBL producing E coli, repeat blood cultures are pending. Urine cultures show no growth. Unknown source of E coli bacteremia, and skin exam negative. Patient currently denies nausea/vomiting/diarrhea/shortness breath/chest pain. Allergies No Known Drug Allergies Allergy (Verified 06/23/15 20:10) Unknown Home Medications: Acetaminophen [8 Hour Acetaminophen] 500 mg PO DAILY 01/01/21 - Past Medical/Surgical History Diabetic: No -: Hypertension -: Anxiety -: GERD -: COPD -: History of Gastric ulcer -: Alcohol Abuse -: Nicotine dependence -: Gastric ulcer repair -: Vasectomy x2 Psychosocial/ Personal History: He is single, has 5 children, he does not work. - Family History Father Medical History: Hypertension, Stroke Notes: Mother Medical History: Hypertension, Stroke Notes: - Social History Smoking Status: Current every day smoker Alcohol use: Yes CD- Drugs: No Caffeine use: No Place of Residence: Home Review of Systems 10-point ROS is otherwise unremarkable Physical Examination Temp Pulse Resp BP Pulse Ox 98.3 F 88 14 109/56 L 95 01/09/21 08:00 01/09/21 08:00 01/09/21 08:00 01/09/21 08:00 01/09/21 08:00 General: Cachectic, Confused HEENT: Atraumatic, Normocephalic Neck: Supple Respiratory: Clear to auscultation bilaterally, Normal air movement Cardiovascular: Normal pulses, Regular rate/rhythm Gastrointestinal: Normal bowel sounds, Non-distended Musculoskeletal: No clubbing, No swelling, No contractures, No erythema Integumentary: No rashes, No breakdown, No significant lesion, No tenderness/swelling Conclusions/Impression: Antibiotics Meropenem Start: 01/08 Assessment/plan Bacteremia Blood cultures obtained on 01/05 growing ESBL producing E coli. Repeat blood cultures obtained on 01/08 pending. Patient placed on meropenem, will need 7 days of meropenem following a negative blood culture report. Source of infection unclear at this time. Tylenol toxicity Liver enzymes down trending. GI following. Esophagitis GI following Polysubstance abuse Medical management per primary team Plan of care discussed with Dr. Francis Thank you for consultation.
--- NOTE | 2021-01-09 11:01 | CON ---
Date of Consultation: 01/02/2021 Reason For Consultation: Chest pain. History Of Present Illness: Mr. Farnsworth is 70, came in with chest pain that is clearly related to es ophagitis. His pain is consistent, worse when he eats, worse when he lays down. It is not exertiona l, does not radiate. There is an endoscopy plan today by Dr. Oliver. He had an elevated Tylenol lev el, creatinine of 2, white count of 15 with potassium of 2.9. His CO2 level was 14. AST was 389. H is BNP was 793. Past Medical History: Unremarkable otherwise. Allergies: NONE. Review of Systems: Negative. Social History: Negative. Physical Examination: Vital Signs: Stable, afebrile. Moderate pain. HEENT: Negative. Neck: Supple with no bruit. Chest: Clear. Cardiac: Revealed a regular rhythm and rate. No murmurs, gallops, or rubs. Abdomen: Benign. Extremities: Revealed no clubbing, cyanosis, or edema. Diagnostic Data: As stated earlier. Impression And Plan: 1.Chest pain secondary to esophagitis. 2.Elevated Tylenol level in his blood, not sure if this was causing his elevated liver function test s, but that needs to be treated. 3.Renal insufficiency. 4.Hypokalemia. 5.Elevated white count. 6.Elevated BNP. I think the patient needs to have an endoscopy and he needs his potassium corrected . His elevated Tylenol level treated. No cardiac workup is recommended at this point. He is cleare d to undergo endoscopy. If that is negative, then we will reconsider further workup for his chest pa in. STERLING/DEMARCUS Voice ID: [id number] Report ID: [id number]
--- NOTE | 2021-01-09 16:38 | P.PN ---
Subjective Date of Service: 01/09/21 Chief Complaint: Chest pain, LEA, tylenol toxicity hepatitis Hemoglobin has been stable over the last few days. He denies any melena. Nursing staff reports no blood in stool. Urine is also clear. No hematuria. No fever. LFTs has trending down significantly He has good oral intake. Physical Examination - Vital Signs Temperature: 97.4 F Blood Pressure: 104/67 Pulse: 92 Respirations: 16 Pulse Ox (%): 93 - Physical Exam General: Alert, In no apparent distress, Oriented x3 HEENT: Mucous membr. moist/pink Neck: JVD not distended Respiratory: Clear to auscultation bilaterally, Normal air movement Cardiovascular: No edema, Regular rate/rhythm, Normal S1 S2 Gastrointestinal: Soft and benign, Non-distended, No tenderness Musculoskeletal: No swelling Integumentary: No rashes, No cyanosis Assessment And Plan - Plan Physical Exam General: Alert, In no apparent distress, Oriented x3 HEENT: EOMI, Sclerae nonicteric Respiratory: Clear to auscultation bilaterally, Normal air movement Cardiovascular: No edema, Regular rate/rhythm, No murmurs Gastrointestinal: Soft and benign, Non-distended, Tenderness (epigastric - moderate) Integumentary: No rashes, No significant lesion Problem list Chest pain Esophagitis Acetaminophen toxicity Acute liver failure Hypertension Hyperbilirubinemia History of drug and alcohol abuse Remote CVA COPD Nicotine dependence Sepsis E. coli bacteremia. Plan No aspirin due to GI bleed. Seen by cardiology, chest pain considered to be noncardiac. Continue metoprolol. Status post EGD patient noted to have esophagitis and duodenitis. Hemoglobin stable over the last few days. Repeat UA shows resolved microscopic hematuria. No active bleeding. Continue to monitor H&H. Transfuse as needed for hemoglobin less than 7. Avoid Tylenol and NSAIDs at this time Continue Protonix, Carafate. History of alcoholism. Patient is stable. No symptoms or signs of alcohol withdrawal. Acetaminophen toxicity resolved. Patient completed 42 hours of IV acetylcysteine for acetaminophen toxicity and acute liver failure. LFTs continue to trend down. Coagulopathy resolved. Poison control followed patient for the acetaminophen toxicity. Case no. [id number]. Continue supportive measures. LEA likely prerenal. Seen by nephrology. LEA resolved. Patient is eating well. IV fluid discontinued. Leukocytosis resolved. Blood cultures growing ESBL E. coli. UA negative for UTI . Urine culture: No growth. Repeat blood culture result is pending. IV Rocephin changed to IV meropenem. Continue meropenem. Infectious disease input appreciated. Patient slated for 7 days of IV meropenem for negative blood culture date. Patient seen by PT and noted to have shuffling gait. Skilled rehab recommended. Patient initially declined skilled rehab or home health but he has now agreed to go to skilled rehab.
[2021-01-10] MEDS: TRAMADOL HCL 50 MG TAB PO PRN ×4 (03:51→22:28)
[2021-01-10] MEDS: METOPROLOL TAR 25 MG TAB PO SCH ×2 (06:04→17:53)
[2021-01-10 06:40] LABS: Hematocrit 22.4 % (39.6-49.0)
[2021-01-10 06:58] LABS: ALT/SGPT 101 U/L (12-78); AST/SGOT 42 U/L (15-37); Albumin 1.5 g/dL (3.4-5.0); Alkaline Phosphatase 158 U/L (45-117); BUN Blood Urea Nitrogen 8 mg/dL (7-18); Bicarbonate 28 mmol/L (21-32); Bilirubin Total 0.8 mg/dL (0.2-1.0); Glucose Level 78 mg/dL (74-106); Potassium 3.7 mmol/L (3.5-5.1); Protein, Total 4.9 g/dL (6.4-8.2); Sodium Level 133 mmol/L (136-145)
[2021-01-10] MEDS: Meropenem 500 MG/100 ML BAG IV SCH ×3 (07:19→20:34)
[2021-01-10] MEDS: SUCRALFATE 1GM/10ML UCUP FT SCH ×4 (07:30→20:34)
[2021-01-10] MEDS: NICOTINE 14 MG/PAT TD SCH (08:18)
[2021-01-10] MEDS: THIAMINE HCL 100 MG TABLET PO SCH (08:18)
[2021-01-10] MEDS: PANTOPRAZOLE 40MG TABLET PO SCH ×2 (08:19→16:24)
[2021-01-10] MEDS ORDERED: POTASSIUM CL SA 10 MEQ TAB PO ONE (09:00)
--- NOTE | 2021-01-10 12:45 | P.PN ---
Subjective Date of Service: 01/10/21 Chief Complaint: Chest pain, MAK, tylenol toxicity hepatitis Patient seen examined at bedside, doing well no acute complaints. Review of Systems 10-point ROS is otherwise unremarkable Physical Examination - Vital Signs Temperature: 98.7 F Blood Pressure: 122/78 Pulse: 89 Respirations: 14 Pulse Ox (%): 97 - Studies Laboratory Last Values WBC 11.00 K/uL (4.3-10.9) H D 01/02/21 09:39 RBC 4.30 M/uL (4.33-5.43) L 01/02/21 09:39 Hgb 13.9 g/dL (13.6-17.9) 01/02/21 09:39 Hct 42.3 % (39.6-49.0) 01/02/21 09:39 MCV 98.5 fL (80-100) 01/02/21 09:39 MCH 32.3 pg (27.0-35.0) 01/02/21 09:39 MCHC 32.8 g/dL (32.0-36.0) 01/02/21 09:39 RDW 19.7 % (12.1-15.2) H 01/02/21 09:39 Plt Count 182 K/uL (152-406) D 01/02/21 09:39 MPV 7.9 fL (7.6-11.3) 01/02/21 09:39 Neutrophils % 82.2 % (41.7-73.7) H 01/02/21 09:39 Lymphocytes % 11.2 % (15.3-44.8) L 01/02/21 09:39 Monocytes % 6.2 % (3.3-12.3) 01/02/21 09:39 Eosinophils % 0.1 % (0-4.4) 01/02/21 09:39 Basophils % 0.3 % (0-1.3) 01/02/21 09:39 Absolute Neutrophils 9.0 K/uL (1.8-8.0) H 01/02/21 09:39 Absolute Lymphocytes 1.2 K/uL (0.7-4.9) 01/02/21 09:39 Absolute Monocytes 0.7 K/uL (0.1-1.3) 01/02/21 09:39 Absolute Eosinophils 0.0 K/uL (0-0.5) 01/02/21 09:39 Absolute Basophils 0.0 K/uL (0-0.5) 01/02/21 09:39 Diff Path Review Cancelled 01/01/21 10:34 Platelet Estimate Adeq 01/01/21 11:55 Clumped Platelets Noted 01/01/21 11:55 Morphology Comment Not seen (NOT SEEN) 01/01/21 11:55 PT 18.1 SECONDS (9.5-12.5) H 01/02/21 05:30 INR 1.57 01/02/21 05:30 APTT 21.8 SECONDS (24.3-36.9) L 01/02/21 05:30 pH 7.44 (7.35-7.45) 01/02/21 06:22 pCO2 26.0 mmHG (35-45) L 01/02/21 06:22 pO2 83.7 mmHG (75-100) 01/02/21 06:22 HCO3 17.2 mmol/L (22-28) L 01/02/21 06:22 Base Excess -6.3 mmol/L 01/02/21 06:22 Oxyhemoglobin 94.6 % (94-97) 01/02/21 06:22 ABG O2 Sat (Measured) 96.4 % (92-98.5) 01/02/21 06:22 ABG Carboxyhemoglobin 0.8 % (0-1.5) 01/02/21 06:22 ABG Methemoglobin 1.1 % (0-1.5) 01/02/21 06:22 Other Total Hgb 12.2 g/dl (12-18) 01/02/21 06:22 Inspired O2 21.0 % 01/02/21 06:22 Sodium 138 mmol/L (136-145) 01/01/21 11:20 Potassium 3.2 mmol/L (3.5-5.1) L 01/01/21 19:30 Potassium Cancelled 01/01/21 19:30 Chloride 98 mmol/L (98-107) 01/01/21 11:20 Carbon Dioxide 14 mmol/L (21-32) L* 01/01/21 11:20 BUN 54 mg/dL (7-18) H 01/01/21 11:20 Creatinine 2.00 mg/dL (0.55-1.3) H 01/01/21 11:20 Estimated GFR 33 mL/min (=/>90) L 01/01/21 11:20 Glucose 171 mg/dL (74-106) H 01/01/21 11:20 Hemoglobin A1c 5.3 % (4.2-6.3) 01/02/21 05:30 Calcium 10.0 mg/dL (8.5-10.1) 01/01/21 11:20 Magnesium 2.4 mg/dL (1.8-2.4) D 01/01/21 11:20 Total Bilirubin 1.4 mg/dL (0.2-1.0) H 01/01/21 11:20 Direct Bilirubin 0.7 mg/dL (0-0.2) H 01/01/21 11:20 AST 389 U/L (15-37) H* 01/01/21 11:20 ALT 170 U/L (12-78) H 01/01/21 11:20 Alkaline Phosphatase 89 U/L (45-117) 01/01/21 11:20 Ammonia < 10 umol/L (19-54) L 01/01/21 11:20 Rapid Troponin I < 0.02 ng/mL (0.0-0.045) 01/01/21 13:50 Troponin I 0.02 ng/mL (0.0-0.045) 01/02/21 05:30 NT-Pro-B Natriuret Pep 793 pg/mL (<125) H 01/01/21 11:20 Serum Total Protein 7.6 g/dL (6.4-8.2) 01/01/21 11:20 Albumin 3.8 g/dL (3.4-5.0) 01/01/21 11:20 Globulin 3.8 g/dL (2.3-3.5) H 01/01/21 11:20 Albumin/Globulin Ratio 1.0 (1.1-1.8) L 01/01/21 11:20 Lipase 241 U/L (73-393) 01/01/21 11:20 TSH 0.259 uIU/mL (0.360-3.740) L 01/01/21 11:20 Urine Color Yellow (Yellow) 01/02/21 06:27 Urine Appearance Clear (Clear) 01/02/21 06:27 Urine pH 6.0 (5.0-7.0) 01/02/21 06:27 Ur Specific [place] 1.015 (1.005-1.030) 01/02/21 06:27 Glucose (UA)(Auto) Negative (Negative) 01/02/21 06:27 Urine Ketones 1+ (Negative) H 01/02/21 06:27 Urine Blood 3+ (Negative) H 01/02/21 06:27 Urine Nitrite Negative (Negative) 01/02/21 06:27 Urine Bilirubin Negative (Negative) 01/02/21 06:27 Urine Urobilinogen 2.0 mg/dL (0.2-1.0) H 01/02/21 06:27 Ur Leukocyte Esterase Negative (Negative) 01/02/21 06:27 Urine RBC >50 /HPF (NONE SEEN) H 01/02/21 06:27 Urine WBC <5 /HPF (<5) 01/02/21 06:27 Ur Squamous Epith Cells <5 /HPF (NONE SEEN) 01/02/21 06:27 Ur Urothelial Cells <5 /HPF (NONE SEEN) 01/02/21 06:27 Urine Bacteria <20 /HPF (NONE SEEN) 01/02/21 06:27 Urine Culture Reflexed Not needed 01/02/21 06:27 U Random Total Protein Cancelled 01/02/21 04:05 Ur Random Sodium Cancelled 01/02/21 04:05 Urine Creatinine Cancelled 01/02/21 04:00 Urine Total Protein Negative (Negative) 01/02/21 06:27 Salicylates 2.2 mg/dL (2.8-20) L 01/01/21 11:20 Opiates Screen Negative (NEGATIVE) 01/01/21 14:30 Methadone Screen Negative (NEGATIVE) 01/01/21 14:30 Acetaminophen 44.5 ug/mL (10.0-30.0) H* 01/01/21 12:46 Ur Barbiturates Screen Negative (NEGATIVE) 01/01/21 14:30 Ur Phencyclidine Scrn Negative (NEGATIVE) 01/01/21 14:30 Amphetamines Screen Negative (NEGATIVE) 01/01/21 14:30 Benzodiazepines Screen Negative (NEGATIVE) 01/01/21 14:30 Cocaine Screen Negative (NEGATIVE) 01/01/21 14:30 Ur THC Screen Negative (NEGATIVE) 01/01/21 14:30 Plasma/Serum Alcohol < 10 mg/dL (<10) 01/01/21 11:20 SARS-CoV-2 Rap RNA(RT-PCR) Negative (NEGATIVE) 01/01/21 10:38 Smear Scan Ok (OK) 01/01/21 11:55 Assessment And Plan - Plan Physical exam: General: Cachectic, Confused HEENT: Atraumatic, Normocephalic Neck: Supple Respiratory: Clear to auscultation bilaterally, Normal air movement Cardiovascular: Normal pulses, Regular rate/rhythm Gastrointestinal: Normal bowel sounds, Non-distended Musculoskeletal: No clubbing, No swelling, No contractures, No erythema Integumentary: No rashes, No breakdown, No significant lesion, No tenderness/swelling Conclusions/Impression: Antibiotics Meropenem Start: 01/08 Assessment/plan Bacteremia Blood cultures obtained on 01/05 growing ESBL producing E coli. Repeat blood cultures obtained on 01/08 pending. Patient placed on meropenem, will need 7 days of meropenem following a negative blood culture report. Source of infection unclear at this time. Tylenol toxicity Liver enzymes down trending. GI following. Esophagitis GI following Polysubstance abuse Medical management per primary team Plan of care discussed with Dr. Francis Thank you for consultation. Physician Review Additional Text: Problems Mak on CKD most likely secondary to prerenal etiology nsaid and acetaminophen use Respiratory alkalosis with Metabolic acidosis Acetaminophen toxicity Hypokalemia Chest pain Hypertension now borderline hypotensive Plan Kidney function normalized Decrease normal saline to 100cc/h Respiratory alkalosis much improved. Continue saline chloride infusion, no indication for acetazolamide Replete potassium as needed, awaiting morning labs Continue acetadote per protocol Strict i/o Hold off on any nephrotoxins at this time Will continue to follow
--- NOTE | 2021-01-10 15:13 | P.PN ---
Date of Service: 01/10/21 Subjective: no acute events overnight. no complaints this morning besides interrupting his TV program hgb stable continues with mild chest/epigastric chest pain ROS: 10 point ROS as noted above, otherwise negative Physical Exam General: Alert, In no apparent distress, Oriented x3 HEENT: EOMI, Sclerae nonicteric Respiratory: Clear to auscultation bilaterally, Normal air movement Cardiovascular: No edema, Regular rate/rhythm, No murmurs Gastrointestinal: Soft and benign, Non-distended, mild tenderness in epigastrium Musculoskeletal: No erythema, Tenderness (L chest wall) Integumentary: No rashes, No significant lesion Problem list Chest pain Esophagitis acute liver failure secondary to acetaminophen toxicity Hypertension Hyperbilirubinemia Sepsis secondary to E. coli bacteremia, unknown source History of drug and alcohol abuse Remote CVA COPD Nicotine dependence Troponin remained negative, no events on telemetry, no aspirin due to GI bleed Cardiology evaluated patient, chest pain consider be noncardiac, continue metoprolol EGD noted esophagitis and duodenitis. Continue PPI LFTs improving, completed 42 hours of IV N-acetylcysteine, coagulopathy resolved GI consulted, continue Protonix, Carafate. Avoid Tylenol and NSAIDs Leukocytosis resolved, blood culture grew ESBL E. coli. UA negative, repeat blood culture with no growth. Unclear of source Infectious disease consulted, recommend 7-day IV meropenem from negative blood culture date. Patient continues to be anemic, hemoglobin relatively stable Evaluated by physical therapy, noted to have shuffling gait, only ambulating few feet. Recommended skilled rehab. Patient now amenable to skilled rehab on discharge. Code: Full Dispo: Anticipate DC to SNF in several days, awaiting insurance Auth Time Spent Managing Pts Care (In Minutes): 35
--- NOTE | 2021-01-10 20:06 | P.PN ---
Subjective Date of Service: 01/09/21 Chief Complaint: Chest pain, MAK, tylenol toxicity hepatitis Subjective: Improving (Liver chemistries and PT/INR continue to improve. AST in 40s, ALT/alk phos 100s, INR 1.85 down to 1.15. Toleratimg diet. Knows he need to quit alcohol, avoid Tylenol, HAV/HBV vaccinations DAYANA.) Physical Examination - Vital Signs Temperature: 98.3 F Blood Pressure: 109/68 Pulse: 95 Respirations: 16 Pulse Ox (%): 94 Assessment And Plan - Current Problems (Diagnosis) (1) Abnormal CT of the abdomen Current Visit: Yes Status: Acute (2) Hepatitis, alcoholic Current Visit: Yes Status: Acute (3) Acetaminophen poisoning of undetermined intent Current Visit: Yes Status: Acute (4) Alcohol abuse Current Visit: No Status: Acute (5) Chest pain Onset Date: 06/24/15 Current Visit: No Status: Acute Qualifiers: Chest pain type: intercostal pain Qualified Code(s): R07.82 - Intercostal pain (6) Tobacco abuse Current Visit: No Status: Chronic - Plan REC: 1) continue PPI therapy 2) rehab on discharge 3) consider urology follow-up outpatient for hematuria 4) HAV/HBV vaccinations DAYANA 5) U/S abdomen & AFP q 6 months 6) repeat EGD in 3-4 weeks due esophageal varices surveillance / therapy Physician Review Additional Text: Problems Mak on CKD most likely secondary to prerenal etiology nsaid and acetaminophen use Respiratory alkalosis with Metabolic acidosis Acetaminophen toxicity Hypokalemia Chest pain Hypertension now borderline hypotensive Plan Kidney function normalized Decrease normal saline to 100cc/h Respiratory alkalosis much improved. Continue saline chloride infusion, no indication for acetazolamide Replete potassium as needed, awaiting morning labs Continue acetadote per protocol Strict i/o Hold off on any nephrotoxins at this time Will continue to follow
[2021-01-10 21:22] VITALS: BMI 29.5
[2021-01-11] MEDS: TRAMADOL HCL 50 MG TAB PO PRN ×3 (04:24→20:05)
[2021-01-11] MEDS: Meropenem 500 MG/100 ML BAG IV SCH ×3 (04:45→20:05)
[2021-01-11] MEDS: METOPROLOL TAR 25 MG TAB PO SCH ×2 (04:46→17:41)
[2021-01-11 05:44] LABS: Hematocrit 23.5 % (39.6-49.0); MPV 7.9 fL (7.6-11.3); RBC Red Blood Cell Count 2.43 M/uL (4.33-5.43)
[2021-01-11 06:11] LABS: ALT/SGPT 79 U/L (12-78); AST/SGOT 49 U/L (15-37); Albumin 1.5 g/dL (3.4-5.0); Alkaline Phosphatase 157 U/L (45-117); BUN Blood Urea Nitrogen 7 mg/dL (7-18); Bicarbonate 26 mmol/L (21-32); Bilirubin Total 0.8 mg/dL (0.2-1.0); Glucose Level 83 mg/dL (74-106); Magnesium 1.7 mg/dL (1.8-2.4); Potassium 4.2 mmol/L (3.5-5.1); Protein, Total 5.2 g/dL (6.4-8.2); Sodium Level 131 mmol/L (136-145)
--- NOTE | 2021-01-11 06:38 | P.PN ---
Date of Service: 01/11/21 Subjective: No acute events overnight Patient reports still having a little bit of chest discomfort in the epi gastrium/substernal Unable to give any more specifics, asking for pain medication ROS: 10 point ROS as noted above, otherwise negative Physical Exam General: Alert, In no apparent distress, Oriented x3 HEENT: EOMI, Sclerae nonicteric Respiratory: Clear to auscultation bilaterally, Normal air movement Cardiovascular: No edema, Regular rate/rhythm, No murmurs Gastrointestinal: Non-distended, mild tenderness in epigastrium Musculoskeletal: No erythema, Tenderness (L chest wall) Integumentary: No rashes, No significant lesion Problem list Chest pain Esophagitis acute liver failure secondary to acetaminophen toxicity Hypertension Hyperbilirubinemia Sepsis secondary to E. coli bacteremia, unknown source History of drug and alcohol abuse Remote CVA COPD Nicotine dependence Troponin remained negative, no events on telemetry, no aspirin due to GI bleed Cardiology evaluated patient, chest pain considered be noncardiac, continue metoprolol EGD noted esophagitis and duodenitis. Continue PPI LFTs improving, completed 42 hours of IV N-acetylcysteine, coagulopathy resolved GI consulted, continue Protonix, Carafate. Avoid Tylenol and NSAIDs Leukocytosis resolved, blood culture grew ESBL E. coli. UA negative, repeat blood culture with no growth. Unclear of source Infectious disease consulted, recommend 7-day IV meropenem from negative blood culture date. Patient continues to be anemic, hemoglobin relatively stable Continue tramadol for pain as needed Evaluated by physical therapy, noted to have shuffling gait, only ambulating few feet. Recommended skilled rehab. Patient now amenable to skilled rehab on discharge. Code: Full Dispo: Anticipate DC to SNF in several days, awaiting insurance Auth We are entering the holiday, which will likely delay the patient's discharge/authorization. Suspect patient will be here throughout the duration of 7 days of antibiotics, and will not need PICC line at this time. Time Spent Managing Pts Care (In Minutes): 35
[2021-01-11] MEDS: SUCRALFATE 1GM/10ML UCUP FT SCH ×3 (07:30→16:30)
[2021-01-11] MEDS ORDERED: MAGNESIUM SULFATE 1 gm IVPB 1 GM/100 ML BAG IV ONE (09:00)
[2021-01-11] MEDS: PANTOPRAZOLE 40MG TABLET PO SCH ×2 (09:30→17:41)
[2021-01-11] MEDS: NICOTINE 14 MG/PAT TD SCH (09:30)
[2021-01-11] MEDS: THIAMINE HCL 100 MG TABLET PO SCH (09:30)
--- NOTE | 2021-01-11 11:59 | P.PN ---
Subjective Date of Service: 01/11/21 Chief Complaint: Chest pain, LEA, tylenol toxicity hepatitis Patient seen examined at bedside, resting comfortably. Review of Systems 10-point ROS is otherwise unremarkable Physical Examination - Vital Signs Temperature: 98.5 F Blood Pressure: 130/79 Pulse: 96 Respirations: 20 Pulse Ox (%): 96 - Studies Laboratory Last Values WBC 11.00 K/uL (4.3-10.9) H D 01/02/21 09:39 RBC 4.30 M/uL (4.33-5.43) L 01/02/21 09:39 Hgb 13.9 g/dL (13.6-17.9) 01/02/21 09:39 Hct 42.3 % (39.6-49.0) 01/02/21 09:39 MCV 98.5 fL (80-100) 01/02/21 09:39 MCH 32.3 pg (27.0-35.0) 01/02/21 09:39 MCHC 32.8 g/dL (32.0-36.0) 01/02/21 09:39 RDW 19.7 % (12.1-15.2) H 01/02/21 09:39 Plt Count 182 K/uL (152-406) D 01/02/21 09:39 MPV 7.9 fL (7.6-11.3) 01/02/21 09:39 Neutrophils % 82.2 % (41.7-73.7) H 01/02/21 09:39 Lymphocytes % 11.2 % (15.3-44.8) L 01/02/21 09:39 Monocytes % 6.2 % (3.3-12.3) 01/02/21 09:39 Eosinophils % 0.1 % (0-4.4) 01/02/21 09:39 Basophils % 0.3 % (0-1.3) 01/02/21 09:39 Absolute Neutrophils 9.0 K/uL (1.8-8.0) H 01/02/21 09:39 Absolute Lymphocytes 1.2 K/uL (0.7-4.9) 01/02/21 09:39 Absolute Monocytes 0.7 K/uL (0.1-1.3) 01/02/21 09:39 Absolute Eosinophils 0.0 K/uL (0-0.5) 01/02/21 09:39 Absolute Basophils 0.0 K/uL (0-0.5) 01/02/21 09:39 Diff Path Review Cancelled 01/01/21 10:34 Platelet Estimate Adeq 01/01/21 11:55 Clumped Platelets Noted 01/01/21 11:55 Morphology Comment Not seen (NOT SEEN) 01/01/21 11:55 PT 18.1 SECONDS (9.5-12.5) H 01/02/21 05:30 INR 1.57 01/02/21 05:30 APTT 21.8 SECONDS (24.3-36.9) L 01/02/21 05:30 pH 7.44 (7.35-7.45) 01/02/21 06:22 pCO2 26.0 mmHG (35-45) L 01/02/21 06:22 pO2 83.7 mmHG (75-100) 01/02/21 06:22 HCO3 17.2 mmol/L (22-28) L 01/02/21 06:22 Base Excess -6.3 mmol/L 01/02/21 06:22 Oxyhemoglobin 94.6 % (94-97) 01/02/21 06:22 ABG O2 Sat (Measured) 96.4 % (92-98.5) 01/02/21 06:22 ABG Carboxyhemoglobin 0.8 % (0-1.5) 01/02/21 06:22 ABG Methemoglobin 1.1 % (0-1.5) 01/02/21 06:22 Other Total Hgb 12.2 g/dl (12-18) 01/02/21 06:22 Inspired O2 21.0 % 01/02/21 06:22 Sodium 138 mmol/L (136-145) 01/01/21 11:20 Potassium 3.2 mmol/L (3.5-5.1) L 01/01/21 19:30 Potassium Cancelled 01/01/21 19:30 Chloride 98 mmol/L (98-107) 01/01/21 11:20 Carbon Dioxide 14 mmol/L (21-32) L* 01/01/21 11:20 BUN 54 mg/dL (7-18) H 01/01/21 11:20 Creatinine 2.00 mg/dL (0.55-1.3) H 01/01/21 11:20 Estimated GFR 33 mL/min (=/>90) L 01/01/21 11:20 Glucose 171 mg/dL (74-106) H 01/01/21 11:20 Hemoglobin A1c 5.3 % (4.2-6.3) 01/02/21 05:30 Calcium 10.0 mg/dL (8.5-10.1) 01/01/21 11:20 Magnesium 2.4 mg/dL (1.8-2.4) D 01/01/21 11:20 Total Bilirubin 1.4 mg/dL (0.2-1.0) H 01/01/21 11:20 Direct Bilirubin 0.7 mg/dL (0-0.2) H 01/01/21 11:20 AST 389 U/L (15-37) H* 01/01/21 11:20 ALT 170 U/L (12-78) H 01/01/21 11:20 Alkaline Phosphatase 89 U/L (45-117) 01/01/21 11:20 Ammonia < 10 umol/L (19-54) L 01/01/21 11:20 Rapid Troponin I < 0.02 ng/mL (0.0-0.045) 01/01/21 13:50 Troponin I 0.02 ng/mL (0.0-0.045) 01/02/21 05:30 NT-Pro-B Natriuret Pep 793 pg/mL (<125) H 01/01/21 11:20 Serum Total Protein 7.6 g/dL (6.4-8.2) 01/01/21 11:20 Albumin 3.8 g/dL (3.4-5.0) 01/01/21 11:20 Globulin 3.8 g/dL (2.3-3.5) H 01/01/21 11:20 Albumin/Globulin Ratio 1.0 (1.1-1.8) L 01/01/21 11:20 Lipase 241 U/L (73-393) 01/01/21 11:20 TSH 0.259 uIU/mL (0.360-3.740) L 01/01/21 11:20 Urine Color Yellow (Yellow) 01/02/21 06:27 Urine Appearance Clear (Clear) 01/02/21 06:27 Urine pH 6.0 (5.0-7.0) 01/02/21 06:27 Ur Specific [place] 1.015 (1.005-1.030) 01/02/21 06:27 Glucose (UA)(Auto) Negative (Negative) 01/02/21 06:27 Urine Ketones 1+ (Negative) H 01/02/21 06:27 Urine Blood 3+ (Negative) H 01/02/21 06:27 Urine Nitrite Negative (Negative) 01/02/21 06:27 Urine Bilirubin Negative (Negative) 01/02/21 06:27 Urine Urobilinogen 2.0 mg/dL (0.2-1.0) H 01/02/21 06:27 Ur Leukocyte Esterase Negative (Negative) 01/02/21 06:27 Urine RBC >50 /HPF (NONE SEEN) H 01/02/21 06:27 Urine WBC <5 /HPF (<5) 01/02/21 06:27 Ur Squamous Epith Cells <5 /HPF (NONE SEEN) 01/02/21 06:27 Ur Urothelial Cells <5 /HPF (NONE SEEN) 01/02/21 06:27 Urine Bacteria <20 /HPF (NONE SEEN) 01/02/21 06:27 Urine Culture Reflexed Not needed 01/02/21 06:27 U Random Total Protein Cancelled 01/02/21 04:05 Ur Random Sodium Cancelled 01/02/21 04:05 Urine Creatinine Cancelled 01/02/21 04:00 Urine Total Protein Negative (Negative) 01/02/21 06:27 Salicylates 2.2 mg/dL (2.8-20) L 01/01/21 11:20 Opiates Screen Negative (NEGATIVE) 01/01/21 14:30 Methadone Screen Negative (NEGATIVE) 01/01/21 14:30 Acetaminophen 44.5 ug/mL (10.0-30.0) H* 01/01/21 12:46 Ur Barbiturates Screen Negative (NEGATIVE) 01/01/21 14:30 Ur Phencyclidine Scrn Negative (NEGATIVE) 01/01/21 14:30 Amphetamines Screen Negative (NEGATIVE) 01/01/21 14:30 Benzodiazepines Screen Negative (NEGATIVE) 01/01/21 14:30 Cocaine Screen Negative (NEGATIVE) 01/01/21 14:30 Ur THC Screen Negative (NEGATIVE) 01/01/21 14:30 Plasma/Serum Alcohol < 10 mg/dL (<10) 01/01/21 11:20 SARS-CoV-2 Rap RNA(RT-PCR) Negative (NEGATIVE) 01/01/21 10:38 Smear Scan Ok (OK) 01/01/21 11:55 Assessment And Plan - Plan Physical exam: General: Cachectic, Confused HEENT: Atraumatic, Normocephalic Neck: Supple Respiratory: Clear to auscultation bilaterally, Normal air movement Cardiovascular: Normal pulses, Regular rate/rhythm Gastrointestinal: Normal bowel sounds, Non-distended Musculoskeletal: No clubbing, No swelling, No contractures, No erythema Integumentary: No rashes, No breakdown, No significant lesion, No tenderness/s welling Conclusions/Impression: Antibiotics Meropenem Start: 01/08 Assessment/plan Bacteremia Blood cultures obtained on 01/05 growing ESBL producing E coli. Repeat blood cultures obtained on 01/08 pending. Patient placed on meropenem, will need 7 days of meropenem following a negative blood culture report. Source of infection unclear at this time. Tylenol toxicity Liver enzymes down trending. GI following. Esophagitis GI following Polysubstance abuse Medical management per primary team Plan of care discussed with Dr. Francis Thank you for consultation.
[2021-01-11] MEDS: SUCRALFATE 1 GM TABLET PO SCH ×3 (12:15→20:05)
[2021-01-11] MEDS ORDERED: NA CHLORIDE 0.9% 100 ML ONE (12:57)
[2021-01-12] MEDS: Meropenem 500 MG/100 ML BAG IV SCH ×3 (04:04→20:30)
[2021-01-12] MEDS: TRAMADOL HCL 50 MG TAB PO PRN ×4 (04:04→23:33)
[2021-01-12 05:15] LABS: Hematocrit 24.9 % (39.6-49.0); RBC Red Blood Cell Count 2.57 M/uL (4.33-5.43)
[2021-01-12] MEDS: METOPROLOL TAR 25 MG TAB PO SCH ×2 (05:19→16:10)
--- NOTE | 2021-01-12 06:36 | P.PN ---
Date of Service: 01/12/21 Subjective: No acute events overnight No new complaints no new complaints except except TV service is currently messing up Still with some epigastric pain at times with eating. Decreased appetite Willing to try Ensure ROS: 10 point ROS as noted above, otherwise negative Physical Exam General: Alert, In no apparent distress, Oriented x3 HEENT: EOMI, Sclerae nonicteric Respiratory: Clear to auscultation bilaterally, Normal air movement Cardiovascular: No edema, Regular rate/rhythm, No murmurs Gastrointestinal: Non-distended, mild tenderness in epigastrium Musculoskeletal: No erythema, no joint swelling Problem list Chest pain Esophagitis acute liver failure secondary to acetaminophen toxicity Hypertension Hyperbilirubinemia Sepsis secondary to E. coli bacteremia, unknown source History of drug and alcohol abuse Remote CVA COPD Nicotine dependence Troponin remained negative, no events on telemetry, no aspirin due to GI bleed Cardiology evaluated patient, chest pain considered be noncardiac, continue metoprolol EGD noted esophagitis and duodenitis. Continue PPI LFTs improving, completed 42 hours of IV N-acetylcysteine, coagulopathy resolved GI consulted, continue Protonix, Carafate. Avoid Tylenol and NSAIDs Leukocytosis resolved, blood culture grew ESBL E. coli. UA negative, repeat blood culture with no growth. Unclear of source Infectious disease consulted, recommend 7-day IV meropenem from negative blood culture date. (01/08) Hemoglobin stable Continue tramadol for pain as needed Evaluated by physical therapy, noted to have shuffling gait, only ambulating few feet. Recommended skilled rehab. Patient now amenable to skilled rehab on discharge. Code: Full Dispo: Anticipate DC to SNF in several days, awaiting insurance Auth The holiday week will likely delay the patient's discharge/authorization. Suspect patient will be here throughout the duration of 7 days of antibiotics, and will not need PICC line at this time. Time Spent Managing Pts Care (In Minutes): 35
[2021-01-12 07:07] LABS: ALT/SGPT 63 U/L (12-78); AST/SGOT 51 U/L (15-37); Albumin 1.6 g/dL (3.4-5.0); Alkaline Phosphatase 149 U/L (45-117); BUN Blood Urea Nitrogen 10 mg/dL (7-18); Bicarbonate 25 mmol/L (21-32); Bilirubin Total 0.7 mg/dL (0.2-1.0); Glucose Level 84 mg/dL (74-106); Magnesium 1.9 mg/dL (1.8-2.4); Potassium 3.9 mmol/L (3.5-5.1); Protein, Total 5.3 g/dL (6.4-8.2); Sodium Level 132 mmol/L (136-145)
[2021-01-12] MEDS ORDERED: POTASSIUM CL SA 10 MEQ TAB PO ONE (09:00)
[2021-01-12] MEDS ORDERED: MAGNESIUM SULFATE 1 gm IVPB 1 GM/100 ML BAG IV ONE (09:00)
[2021-01-12] MEDS ORDERED: NA CHLORIDE 0.9% 100 ML ONE (09:26)
[2021-01-12] MEDS: SUCRALFATE 1 GM TABLET PO SCH ×4 (09:34→20:30)
[2021-01-12] MEDS: PANTOPRAZOLE 40MG TABLET PO SCH ×2 (09:34→16:10)
[2021-01-12] MEDS: NICOTINE 14 MG/PAT TD SCH (09:34)
[2021-01-12] MEDS: THIAMINE HCL 100 MG TABLET PO SCH (09:35)
[2021-01-13] MEDS: Meropenem 500 MG/100 ML BAG IV SCH ×3 (05:15→21:23)
[2021-01-13] MEDS: METOPROLOL TAR 25 MG TAB PO SCH ×2 (05:32→17:43)
--- NOTE | 2021-01-13 06:32 | P.PN ---
Date of Service: 01/13/21 Subjective: reports continues with some pain in chest / upper abdomen. worsened after eating, no nausea/vomiting feels carafate has helped ROS: 10 point ROS as noted above, otherwise negative Physical Exam General: Alert, In no apparent distress, Oriented x3 HEENT: EOMI, Sclerae nonicteric Respiratory: Clear to auscultation bilaterally, Normal air movement Cardiovascular: No edema, Regular rate/rhythm, No murmurs Gastrointestinal: Non-distended, mild tenderness in epigastrium Musculoskeletal: No erythema, no joint swelling Problem list Chest pain Esophagitis acute liver failure secondary to acetaminophen toxicity Hypertension Hyperbilirubinemia Sepsis secondary to E. coli bacteremia, unknown source History of drug and alcohol abuse Remote CVA COPD Nicotine dependence Troponin remained negative, no events on telemetry, no aspirin due to GI bleed Cardiology evaluated patient, chest pain considered be noncardiac, continue metoprolol EGD noted esophagitis and duodenitis. Continue PPI LFTs improving, completed 42 hours of IV N-acetylcysteine, coagulopathy resolved GI consulted, continue Protonix, Carafate. Avoid Tylenol and NSAIDs Leukocytosis resolved, blood culture grew ESBL E. coli. UA negative, repeat blood culture with no growth. Unclear of source Infectious disease consulted, recommend 7-day IV meropenem from negative blood culture date. (01/08) Hemoglobin stable Continue tramadol for pain as needed Evaluated by physical therapy, noted to have shuffling gait, only ambulating few feet. Recommended skilled rehab. Patient now amenable to skilled rehab on discharge. Code: Full Dispo: Anticipate DC to SNF in several days, awaiting insurance Auth The holiday week will likely delay the patient's discharge/authorization. Suspect patient will be here throughout the duration of 7 days of antibiotics, and will not need PICC line at this time. Time Spent Managing Pts Care (In Minutes): 35
[2021-01-13] MEDS: TRAMADOL HCL 50 MG TAB PO PRN ×3 (06:39→21:23)
[2021-01-13] MEDS: NICOTINE 14 MG/PAT TD SCH (07:50)
[2021-01-13] MEDS: THIAMINE HCL 100 MG TABLET PO SCH (07:51)
[2021-01-13] MEDS: PANTOPRAZOLE 40MG TABLET PO SCH ×2 (07:51→16:08)
[2021-01-13] MEDS: SUCRALFATE 1 GM TABLET PO SCH ×4 (07:51→21:23)
[2021-01-13] MEDS: ENSURE HIGH PROTEIN 237 ML CAN PO SCH ×2 (07:52→16:14)
[2021-01-13 09:05] LABS: ALT/SGPT 58 U/L (12-78); AST/SGOT 48 U/L (15-37); Albumin 1.7 g/dL (3.4-5.0); Alkaline Phosphatase 150 U/L (45-117); BUN Blood Urea Nitrogen 11 mg/dL (7-18); Bicarbonate 25 mmol/L (21-32); Bilirubin Total 0.7 mg/dL (0.2-1.0); Glucose Level 80 mg/dL (74-106); Magnesium 1.8 mg/dL (1.8-2.4); Potassium 4.2 mmol/L (3.5-5.1); Protein, Total 5.6 g/dL (6.4-8.2); Sodium Level 132 mmol/L (136-145)
--- NOTE | 2021-01-13 11:48 | PN ---
Subjective: The patient lying in bed. No new acute event. Chart reviewed. Objective: Vital Signs: Temperature 97.4, pulse 92, respirations 18, and blood pressure 108/75. Lungs: Basal crackles. Heart: S1 and S2. Regular. Abdomen: Soft, nontender. Bowel sounds present. Extremities: No edema. Laboratory Data: Shows WBC 6.4, hemoglobin 8.4, and platelets 288. Chemistry shows sodium 132, pota ssium 4.2, chloride 97, bicarb 25, BUN 11, creatinine 0.6, and glucose is 80. Albumin level is 1.7. Micro data, Escherichia coli ESBL in the blood. Chest x-ray shows decreased lung volumes with opaci ty in the left mid lung representing segmental atelectasis. Assessment And Plan: 1.Bacteremia secondary to extended spectrum beta-lactamase Escherichia coli, currently on antibiotic . 2.Tylenol toxicity. 3.Esophagitis. 4.Polysubstance abuse. 5.Anemia of chronic disease. Continue current treatment. No other recommendation at this time. We will follow the patient as nee ded. NF/MODL Voice ID: [id number] Report ID: [id number]
[2021-01-14] MEDS: Meropenem 500 MG/100 ML BAG IV SCH ×3 (05:20→20:14)
[2021-01-14] MEDS: METOPROLOL TAR 25 MG TAB PO SCH ×2 (05:20→17:36)
--- NOTE | 2021-01-14 06:42 | P.PN ---
Date of Service: 01/14/21 Subjective: no acute events overnight. reports doing fine, no new complaints appetite slightly better ROS: 10 point ROS as noted above, otherwise negative Physical Exam General: Alert, In no apparent distress, Oriented x3 HEENT: EOMI, Sclerae nonicteric Respiratory: Clear to auscultation bilaterally, Normal air movement Cardiovascular: No edema, Regular rate/rhythm, No murmurs Gastrointestinal: Non-distended, mild tenderness in epigastrium Musculoskeletal: No erythema, no joint swelling Problem list Chest pain / epigastric pain secondary to Esophagitis and duodenitis acute liver failure secondary to acetaminophen toxicity Hypertension Hyperbilirubinemia Sepsis secondary to E. coli bacteremia, unknown source History of drug and alcohol abuse Remote CVA COPD Nicotine dependence Troponin remained negative, no events on telemetry, no aspirin due to GI bleed Cardiology evaluated patient, chest pain considered be noncardiac, continue metoprolol EGD noted esophagitis and duodenitis. Continue PPI LFTs improved, completed 42 hours of IV N-acetylcysteine, coagulopathy resolved GI consulted, continue Protonix, Carafate. Avoid Tylenol and NSAIDs Leukocytosis resolved, blood culture grew ESBL E. coli. UA negative, repeat blood culture with no growth. Unclear of source Infectious disease consulted, recommend 7-day IV meropenem from negative blood culture date. (01/08) Hemoglobin stable Continue tramadol for pain as needed Evaluated by physical therapy, noted to have shuffling gait, only ambulating few feet. Recommended skilled rehab. Patient agreeable for skilled rehab Code: Full Dispo: Anticipate DC to SNF in next few days, awaiting insurance Auth Holiday which is delayed patient's discharge/insurance authorization. Patient will complete full 7-day duration of antibiotics prior to obtaining authorization, no need for PICC line at this time Time Spent Managing Pts Care (In Minutes): 35
[2021-01-14 07:22] LABS: Absolute Lymphocytes (CBC) 2.3 K/uL (0.7-4.9); Basophils % 1.1 % (0-1.3); Hematocrit 28.7 % (39.6-49.0); Lymphocytes % 28.9 % (15.3-44.8); MPV 7.9 fL (7.6-11.3)
[2021-01-14 07:31] LABS: ALT/SGPT 53 U/L (12-78); AST/SGOT 39 U/L (15-37); Albumin 1.9 g/dL (3.4-5.0); Alkaline Phosphatase 151 U/L (45-117); BUN Blood Urea Nitrogen 10 mg/dL (7-18); Bicarbonate 24 mmol/L (21-32); Bilirubin Total 0.6 mg/dL (0.2-1.0); Glucose Level 85 mg/dL (74-106); Magnesium 1.9 mg/dL (1.8-2.4); Potassium 3.9 mmol/L (3.5-5.1); Protein, Total 5.7 g/dL (6.4-8.2); Sodium Level 133 mmol/L (136-145)
[2021-01-14] MEDS: PANTOPRAZOLE 40MG TABLET PO SCH ×2 (08:17→17:36)
[2021-01-14] MEDS: NICOTINE 14 MG/PAT TD SCH (08:17)
[2021-01-14] MEDS: SUCRALFATE 1 GM TABLET PO SCH ×4 (08:18→20:13)
[2021-01-14] MEDS: THIAMINE HCL 100 MG TABLET PO SCH (08:18)
[2021-01-14] MEDS: ENSURE HIGH PROTEIN 237 ML CAN PO SCH ×2 (08:19→17:37)
[2021-01-14 08:35] LABS: Platelet Estimate ADEQ; White Blood Cell Scan OK (OK)
[2021-01-14 08:36] LABS: Anisocytosis 2+; Blood Morphology Comment NOTED (NOT SEEN); Hypochromasia 1+; Polychromasia SLIGHT
[2021-01-14] MEDS ORDERED: POTASSIUM CL SA 10 MEQ TAB PO ONE (09:00)
[2021-01-14] MEDS: TRAMADOL HCL 50 MG TAB PO PRN (12:37)
[2021-01-15] MEDS: Meropenem 500 MG/100 ML BAG IV SCH ×3 (05:28→20:52)
[2021-01-15] MEDS: METOPROLOL TAR 25 MG TAB PO SCH ×2 (05:28→17:54)
[2021-01-15 05:55] LABS: BUN Blood Urea Nitrogen 9 mg/dL (7-18); Bicarbonate 25 mmol/L (21-32); Glucose Level 96 mg/dL (74-106); Potassium 4.2 mmol/L (3.5-5.1); Sodium Level 135 mmol/L (136-145)
--- NOTE | 2021-01-15 06:40 | P.PN ---
Date of Service: 01/15/21 Subjective: No acute events overnight. Patient reports doing okay, Continues with some epigastric pain, appetite slightly improving awaiting for SNF ROS: 10 point ROS as noted above, otherwise negative still slight Physical Exam General: Alert, In no apparent distress, Oriented x3 HEENT: EOMI, Sclerae nonicteric Respiratory: Clear to auscultation bilaterally, Normal air movement Cardiovascular: No edema, Regular rate/rhythm, No murmurs Gastrointestinal: Non-distended, mild tenderness in epigastrium Musculoskeletal: No erythema, no joint swelling Problem list Chest pain / epigastric pain secondary to Esophagitis and duodenitis acute liver failure secondary to acetaminophen toxicity Hypertension Hyperbilirubinemia Sepsis secondary to E. coli bacteremia, unknown source History of drug and alcohol abuse Remote CVA COPD Nicotine dependence Troponin remained negative, no events on telemetry, no aspirin due to GI bleed Cardiology evaluated patient, chest pain considered be noncardiac, continue metoprolol GI consulted, continue Protonix, Carafate. Avoid Tylenol and NSAIDs EGD noted esophagitis and duodenitis. Continue PPI LFTs improved, completed 42 hours of IV N-acetylcysteine, coagulopathy resolved Leukocytosis resolved, blood culture grew ESBL E. coli. UA negative, repeat blood culture with no growth. Unclear of source Infectious disease consulted, recommend 7-day IV meropenem from negative blood culture date. (01/08) - completes today Hemoglobin stable Continue tramadol for pain as needed Evaluated by physical therapy, noted to have shuffling gait, only ambulating few feet. Recommended skilled rehab. Patient agreeable Code: Full Dispo: Awaiting insurance authorization to DC patient to SNF Holiday week has delayed patient's discharge/insurance authorization. Will complete 7-day course of meropenem today, does not need PICC Time Spent Managing Pts Care (In Minutes): 35
[2021-01-15] MEDS: NICOTINE 14 MG/PAT TD SCH (07:57)
[2021-01-15] MEDS: PANTOPRAZOLE 40MG TABLET PO SCH ×2 (07:58→16:08)
[2021-01-15] MEDS: THIAMINE HCL 100 MG TABLET PO SCH (07:58)
[2021-01-15] MEDS: SUCRALFATE 1 GM TABLET PO SCH ×5 (07:58→20:50)
[2021-01-15] MEDS: ENSURE HIGH PROTEIN 237 ML CAN PO SCH ×2 (07:58→16:09)
[2021-01-15] MEDS: TRAMADOL HCL 50 MG TAB PO PRN ×2 (12:27→20:51)
[2021-01-16 03:57] LABS: MPV 7.5 fL (7.6-11.3); RBC Red Blood Cell Count 2.81 M/uL (4.33-5.43)
[2021-01-16 04:16] LABS: BUN Blood Urea Nitrogen 10 mg/dL (7-18); Bicarbonate 22 mmol/L (21-32); Glucose Level 87 mg/dL (74-106); Potassium 3.9 mmol/L (3.5-5.1); Sodium Level 138 mmol/L (136-145)
[2021-01-16 04:57] VITALS: O2SAT 96
[2021-01-16] MEDS: TRAMADOL HCL 50 MG TAB PO PRN ×2 (06:00→12:13)
[2021-01-16] MEDS: METOPROLOL TAR 25 MG TAB PO SCH ×2 (06:01→17:26)
[2021-01-16] MEDS: Meropenem 500 MG/100 ML BAG IV SCH (06:02)
--- NOTE | 2021-01-16 06:14 | P.PN ---
Date of Service: 01/16/21 Subjective: ROS: 10 point ROS as noted above, otherwise negative still slight Physical Exam General: Alert, In no apparent distress, Oriented x3 HEENT: EOMI, Sclerae nonicteric Respiratory: Clear to auscultation bilaterally, Normal air movement Cardiovascular: No edema, Regular rate/rhythm, No murmurs Gastrointestinal: Non-distended, mild tenderness in epigastrium Musculoskeletal: No erythema, no joint swelling Problem list Chest pain / epigastric pain secondary to Esophagitis and duodenitis acute liver failure secondary to acetaminophen toxicity Hypertension Hyperbilirubinemia Sepsis secondary to E. coli bacteremia, unknown source History of drug and alcohol abuse Remote CVA COPD Nicotine dependence Troponin remained negative, no events on telemetry, no aspirin due to GI bleed Cardiology evaluated patient, chest pain considered be noncardiac, continue metoprolol GI consulted, continue Protonix, Carafate. Avoid Tylenol and NSAIDs EGD noted esophagitis and duodenitis. Continue PPI LFTs improved, completed 42 hours of IV N-acetylcysteine, coagulopathy resolved Leukocytosis resolved, blood culture grew ESBL E. coli. UA negative, repeat blood culture with no growth. Unclear of source Infectious disease consulted, recommend 7-day IV meropenem from negative blood culture date. (01/08) - completes today Hemoglobin stable Continue tramadol for pain as needed Evaluated by physical therapy, noted to have shuffling gait, only ambulating few feet. Recommended skilled rehab. Patient agreeable Code: Full Dispo: Awaiting insurance authorization to DC patient to SNF Holiday week has delayed patient's discharge/insurance authorization. Will complete 7-day course of meropenem today, does not need PICC Time Spent Managing Pts Care (In Minutes): 35
[2021-01-16] MEDS: SUCRALFATE 1 GM TABLET PO SCH ×3 (07:30→17:26)
[2021-01-16] MEDS: PANTOPRAZOLE 40MG TABLET PO SCH ×2 (07:30→17:27)
[2021-01-16] MEDS: ENSURE HIGH PROTEIN 237 ML CAN PO SCH ×2 (08:00→17:00)
[2021-01-16] MEDS ORDERED: POTASSIUM CL SA 10 MEQ TAB PO ONE (09:00)
[2021-01-16] MEDS: NICOTINE 14 MG/PAT TD SCH (09:54)
[2021-01-16] MEDS: THIAMINE HCL 100 MG TABLET PO SCH (09:56)
--- NOTE | 2021-01-16 15:18 | P.PN ---
Subjective Date of Service: 01/16/21 Chief Complaint: Chest pain, ELA, tylenol toxicity hepatitis Patient seen examined at bedside, resting comfortably. Review of Systems 10-point ROS is otherwise unremarkable Physical Examination - Vital Signs Temperature: 98.3 F Blood Pressure: 104/65 Pulse: 75 Respirations: 16 Pulse Ox (%): 95 - Studies Laboratory Last Values WBC 11.00 K/uL (4.3-10.9) H D 01/02/21 09:39 RBC 4.30 M/uL (4.33-5.43) L 01/02/21 09:39 Hgb 13.9 g/dL (13.6-17.9) 01/02/21 09:39 Hct 42.3 % (39.6-49.0) 01/02/21 09:39 MCV 98.5 fL (80-100) 01/02/21 09:39 MCH 32.3 pg (27.0-35.0) 01/02/21 09:39 MCHC 32.8 g/dL (32.0-36.0) 01/02/21 09:39 RDW 19.7 % (12.1-15.2) H 01/02/21 09:39 Plt Count 182 K/uL (152-406) D 01/02/21 09:39 MPV 7.9 fL (7.6-11.3) 01/02/21 09:39 Neutrophils % 82.2 % (41.7-73.7) H 01/02/21 09:39 Lymphocytes % 11.2 % (15.3-44.8) L 01/02/21 09:39 Monocytes % 6.2 % (3.3-12.3) 01/02/21 09:39 Eosinophils % 0.1 % (0-4.4) 01/02/21 09:39 Basophils % 0.3 % (0-1.3) 01/02/21 09:39 Absolute Neutrophils 9.0 K/uL (1.8-8.0) H 01/02/21 09:39 Absolute Lymphocytes 1.2 K/uL (0.7-4.9) 01/02/21 09:39 Absolute Monocytes 0.7 K/uL (0.1-1.3) 01/02/21 09:39 Absolute Eosinophils 0.0 K/uL (0-0.5) 01/02/21 09:39 Absolute Basophils 0.0 K/uL (0-0.5) 01/02/21 09:39 Diff Path Review Cancelled 01/01/21 10:34 Platelet Estimate Adeq 01/01/21 11:55 Clumped Platelets Noted 01/01/21 11:55 Morphology Comment Not seen (NOT SEEN) 01/01/21 11:55 PT 18.1 SECONDS (9.5-12.5) H 01/02/21 05:30 INR 1.57 01/02/21 05:30 APTT 21.8 SECONDS (24.3-36.9) L 01/02/21 05:30 pH 7.44 (7.35-7.45) 01/02/21 06:22 pCO2 26.0 mmHG (35-45) L 01/02/21 06:22 pO2 83.7 mmHG (75-100) 01/02/21 06:22 HCO3 17.2 mmol/L (22-28) L 01/02/21 06:22 Base Excess -6.3 mmol/L 01/02/21 06:22 Oxyhemoglobin 94.6 % (94-97) 01/02/21 06:22 ABG O2 Sat (Measured) 96.4 % (92-98.5) 01/02/21 06:22 ABG Carboxyhemoglobin 0.8 % (0-1.5) 01/02/21 06:22 ABG Methemoglobin 1.1 % (0-1.5) 01/02/21 06:22 Other Total Hgb 12.2 g/dl (12-18) 01/02/21 06:22 Inspired O2 21.0 % 01/02/21 06:22 Sodium 138 mmol/L (136-145) 01/01/21 11:20 Potassium 3.2 mmol/L (3.5-5.1) L 01/01/21 19:30 Potassium Cancelled 01/01/21 19:30 Chloride 98 mmol/L (98-107) 01/01/21 11:20 Carbon Dioxide 14 mmol/L (21-32) L* 01/01/21 11:20 BUN 54 mg/dL (7-18) H 01/01/21 11:20 Creatinine 2.00 mg/dL (0.55-1.3) H 01/01/21 11:20 Estimated GFR 33 mL/min (=/>90) L 01/01/21 11:20 Glucose 171 mg/dL (74-106) H 01/01/21 11:20 Hemoglobin A1c 5.3 % (4.2-6.3) 01/02/21 05:30 Calcium 10.0 mg/dL (8.5-10.1) 01/01/21 11:20 Magnesium 2.4 mg/dL (1.8-2.4) D 01/01/21 11:20 Total Bilirubin 1.4 mg/dL (0.2-1.0) H 01/01/21 11:20 Direct Bilirubin 0.7 mg/dL (0-0.2) H 01/01/21 11:20 AST 389 U/L (15-37) H* 01/01/21 11:20 ALT 170 U/L (12-78) H 01/01/21 11:20 Alkaline Phosphatase 89 U/L (45-117) 01/01/21 11:20 Ammonia < 10 umol/L (19-54) L 01/01/21 11:20 Rapid Troponin I < 0.02 ng/mL (0.0-0.045) 01/01/21 13:50 Troponin I 0.02 ng/mL (0.0-0.045) 01/02/21 05:30 NT-Pro-B Natriuret Pep 793 pg/mL (<125) H 01/01/21 11:20 Serum Total Protein 7.6 g/dL (6.4-8.2) 01/01/21 11:20 Albumin 3.8 g/dL (3.4-5.0) 01/01/21 11:20 Globulin 3.8 g/dL (2.3-3.5) H 01/01/21 11:20 Albumin/Globulin Ratio 1.0 (1.1-1.8) L 01/01/21 11:20 Lipase 241 U/L (73-393) 01/01/21 11:20 TSH 0.259 uIU/mL (0.360-3.740) L 01/01/21 11:20 Urine Color Yellow (Yellow) 01/02/21 06:27 Urine Appearance Clear (Clear) 01/02/21 06:27 Urine pH 6.0 (5.0-7.0) 01/02/21 06:27 Ur Specific [place] 1.015 (1.005-1.030) 01/02/21 06:27 Glucose (UA)(Auto) Negative (Negative) 01/02/21 06:27 Urine Ketones 1+ (Negative) H 01/02/21 06:27 Urine Blood 3+ (Negative) H 01/02/21 06:27 Urine Nitrite Negative (Negative) 01/02/21 06:27 Urine Bilirubin Negative (Negative) 01/02/21 06:27 Urine Urobilinogen 2.0 mg/dL (0.2-1.0) H 01/02/21 06:27 Ur Leukocyte Esterase Negative (Negative) 01/02/21 06:27 Urine RBC >50 /HPF (NONE SEEN) H 01/02/21 06:27 Urine WBC <5 /HPF (<5) 01/02/21 06:27 Ur Squamous Epith Cells <5 /HPF (NONE SEEN) 01/02/21 06:27 Ur Urothelial Cells <5 /HPF (NONE SEEN) 01/02/21 06:27 Urine Bacteria <20 /HPF (NONE SEEN) 01/02/21 06:27 Urine Culture Reflexed Not needed 01/02/21 06:27 U Random Total Protein Cancelled 01/02/21 04:05 Ur Random Sodium Cancelled 01/02/21 04:05 Urine Creatinine Cancelled 01/02/21 04:00 Urine Total Protein Negative (Negative) 01/02/21 06:27 Salicylates 2.2 mg/dL (2.8-20) L 01/01/21 11:20 Opiates Screen Negative (NEGATIVE) 01/01/21 14:30 Methadone Screen Negative (NEGATIVE) 01/01/21 14:30 Acetaminophen 44.5 ug/mL (10.0-30.0) H* 01/01/21 12:46 Ur Barbiturates Screen Negative (NEGATIVE) 01/01/21 14:30 Ur Phencyclidine Scrn Negative (NEGATIVE) 01/01/21 14:30 Amphetamines Screen Negative (NEGATIVE) 01/01/21 14:30 Benzodiazepines Screen Negative (NEGATIVE) 01/01/21 14:30 Cocaine Screen Negative (NEGATIVE) 01/01/21 14:30 Ur THC Screen Negative (NEGATIVE) 01/01/21 14:30 Plasma/Serum Alcohol < 10 mg/dL (<10) 01/01/21 11:20 SARS-CoV-2 Rap RNA(RT-PCR) Negative (NEGATIVE) 01/01/21 10:38 Smear Scan Ok (OK) 01/01/21 11:55 Assessment And Plan - Plan Physical exam: General: Cachectic, Confused HEENT: Atraumatic, Normocephalic Neck: Supple Respiratory: Clear to auscultation bilaterally, Normal air movement Cardiovascular: Normal pulses, Regular rate/rhythm Gastrointestinal: Normal bowel sounds, Non-distended Musculoskeletal: No clubbing, No swelling, No contractures, No erythema Integumentary: No rashes, No breakdown, No significant lesion, No tenderness/s welling Conclusions/Impression: Antibiotics Meropenem Start: 01/08 stop: 01/16 Assessment/plan Bacteremia Blood cultures obtained on 01/05 growing ESBL producing E coli. Repeat blood cultures obtained on 01/08 shows no growth. Patient placed on meropenem, will need 7 days of meropenem following a negative blood culture report. Patient has completed course of antibiotics. Source of infection unclear at this time. Tylenol toxicity Liver enzymes down trending. GI following. Esophagitis GI following Polysubstance abuse Medical management per primary team Plan of care discussed with Dr. Francis Thank you for consultation.
[2021-01-16 18:16] VITALS: BP 126/74; TEMP 97.6
== END 2021-01-16 17:30 | DRG 917 ==
LOC: ER 10:29 → ERHOLD 14:50 → 2ND 17:24 → OBSVTOIN 01-02 12:02
PROVIDERS: ADMIT Hospitalist; ATTEND Hospitalist
PROC: 0DB78ZX Excision of Stomach, Pylorus, Via Natural or Artificial Opening Endoscopic, Diagnostic (ICD-10-PCS; principal; 2021-01-02 13:45)
DX: T39.1X4A Poisoning by 4-Aminophenol derivatives, undetermined, initial encounter (principal); K72.00 Acute and subacute hepatic failure without coma; A41.51 Sepsis due to Escherichia coli [E. coli]; N17.9 Acute kidney failure, unspecified; E87.2 Acidosis; E87.3 Alkalosis; Z16.12 Extended spectrum beta lactamase (ESBL) resistance; D68.4 Acquired coagulation factor deficiency; R64 Cachexia; K21.00 Gastro-esophageal reflux disease with esophagitis, without bleeding; J44.9 Chronic obstructive pulmonary disease, unspecified; E86.0 Dehydration; E87.6 Hypokalemia; F10.10 Alcohol abuse, uncomplicated; K76.0 Fatty (change of) liver, not elsewhere classified; D64.9 Anemia, unspecified; F17.200 Nicotine dependence, unspecified, uncomplicated; F19.10 Other psychoactive substance abuse, uncomplicated; R79.89 Other specified abnormal findings of blood chemistry; E80.6 Other disorders of bilirubin metabolism; K29.70 Gastritis, unspecified, without bleeding; K29.80 Duodenitis without bleeding; I12.9 Hypertensive chronic kidney disease with stage 1 through stage 4 chronic kidney disease, or unspecified chronic kidney disease; N18.9 Chronic kidney disease, unspecified; F41.9 Anxiety disorder, unspecified; K25.9 Gastric ulcer, unspecified as acute or chronic, without hemorrhage or perforation; K70.10 Alcoholic hepatitis without ascites; R93.5 Abnormal findings on diagnostic imaging of other abdominal regions, including retroperitoneum; R07.82 Intercostal pain; R94.5 Abnormal results of liver function studies; R31.29 Other microscopic hematuria; Z68.29 Body mass index [BMI] 29.0-29.9, adult; Z79.899 Other long term (current) drug therapy; Z86.73 Personal history of transient ischemic attack (TIA), and cerebral infarction without residual deficits; Z20.822 Contact with and (suspected) exposure to COVID-19
CPT/HCPCS: 36415; 70450; 71045; 72125; 74176; 76377; 76705; 80048; 80053; 80061; 80076; 80307; 80320; 80329; 81001; 81003; 81015; 82140; 82248; 82271; 82570; 82805; 83036; 83690; 83735; 83880; 83986; 84100; 84132; 84156; 84300; 84439; 84443; 84484; 85014; 85018; 85025; 85027; 85610; 85730; 87040; 87077; 87086; 87088; 87186; 87205; 88305; 88312; 93005; 94640; 94760; 94762; 96365; 96366; 96372; 96375; 97110; 97116; 97161; 97530; 97535; 99285; C9113; G0378; J0132; J2185; J2270; J2370; J2405; J2704; J3411; J3475; J3480; J7030; J7040; J7050; J7060; U0002; U0003

== ENCOUNTER 2022-10-06 19:47 | Inpatient (IN) | payer OTHER ==
--- OUTSIDE RECORDS SUMMARY | 2022-10-06 19:51 | XMS REPORT | Continuity of Care Document ---
:1950 Author Organization [facility] t Address [address] [facility] [facility] [address] [place] [address] Care Team Providers Name Role Phone Serg Juan Primary Care Physician Alissa Carr Attending Clinician Unavailable Nahomy Bender Attending Clinician Unavailable Kate Valles Attending Clinician Unavailable PAT MONTIEL Attending Clinician Unavailable Pat Montiel MD Attending Clinician KYREE OAKLEY Attending Clinician Unavailable Kyree Oakley DO Attending Clinician Kt MORALES, Ash KSalenaHSalena Attending Clinician Lindsey Mcfadden RN Attending Clinician Unavailable GREGG ARRIAGA Attending Clinician Unavailable Ursula Mckeon MD Attending Clinician Gregg Arriaga DO Attending Clinician SOUMYA HILTON Attending Clinician Unavailable Soumya Hilton MD Attending Clinician Catarino Poon MD Attending Clinician ALYSSA TRACEY Attending Clinician Unavailable ALYSSA TRACEY Attending Clinician Unavailable MARBELLA STAHL Attending Clinician Unavailable Marbella Stahl MD Attending Clinician JEANINE CONNER Attending Clinician Unavailable Kemi AIDEN Susu Santosge Attending Clinician Jeanine Conner MD Attending Clinician MATY LEDESMA Attending Clinician Unavailable Teresa Rod DO Attending Clinician Andrew Nino MD Attending Clinician Maty Ledesma MD Attending Clinician Timmy Alvarez MD Attending Clinician Sam Bess DO Attending Clinician Benita MORALES, Mariah Soto Attending Clinician [phone] TIMMY ALVAREZ Attending Clinician Unavailable Taylor Gómez MD Attending Clinician ASH MERAZ Attending Clinician Unavailable Twin WHITESIDE, Gurdeep Pfeiffer Attending Clinician Unavailable Serg Juan Attending Clinician Radiology Attending Clinician Unavailable RADIOLOGY Attending Clinician Unavailable Doctor Unassigned, [place] Attending Clinician Unavailable Kate Valles Admitting Clinician Unavailable YKREE OAKLEY Admitting Clinician Unavailable GREGG ARRIAGA Admitting Clinician Unavailable Gregg Arriaga DO Admitting Clinician SOUMYA HILTON Admitting Clinician Unavailable Catarino Poon MD Admitting Clinician CATARINO POON Admitting Clinician Unavailable MARBELLA STAHL Admitting Clinician Unavailable Marbella Stahl MD Admitting Clinician MATY LEDESMA Admitting Clinician Unavailable Maty Ledesma MD Admitting Clinician TIMMY ALVAREZ Admitting Clinician Unavailable Timmy Alvarez MD Admitting Clinician Jeanine Conner MD Admitting Clinician JEANINE CONNER Admitting Clinician Unavailable Payers Payer Name Policy Type Policy Number Effective Date Expiration Date Low [place] [id number] 2020 MEDICARE PPO-ROQUE 00:00:00 Problems Condition Condition Condition Status Onset Resolution Last Treating Co mments Source Name Details Category Date Date Treatment Clinician Date Fall, Fall, Disease Active Univers initial initial 2-04 [place] Gastritis Gastritis Disease Active Uni vers 1-25 ity of 00:00: [place] [facility] Nonobstruc Nonobstruc Disease Active U nivers tive tive 1-24 it[place] of atheroscle atheroscle [place] [facility] Branch artery artery Hypomagnes Hypomagnes Disease Active 2020-02 U nivers emia emia 2-11 ity of 00:00: [place] [facility] Pneumonia Pneumonia Disease Active 2020-02 Uni vers due to due to 0-30 [place] infectious infectious [place] organism organism [facility] COPD COPD Disease Active 2020-02 Univers (chronic (chronic 0-30 ity of obstructiv obstructiv 00:[place]: [place] e e 00 Medical pulmonary pulmonary Bran ch disease) disease) Cigarette Cigarette Disease Active 2020-02 Uni vers smoker smoker 0-30 ity of 00:00: [place] [facility] Branch Chest pain Chest pain Disease Active 2020-02 U nivers 0-04 ity of 00:00: [place] 00 [facility] Branch Dyslipidem Dyslipidem Disease Active 2020-02 U nivers ia ia 0-04 ity of 00:00: [place] 00 Medical Branch Atypical Atypical Disease Active Unive rs chest pain chest pain 9-22 it y of 00:00: [place] 00 Medical Branch Elevated Elevated Disease Active Unive rs brain brain 9-22 ity of natriureti natriureti 00:[place] c peptide c peptide 00 Medi xiomara (BNP) (BNP) Branch level level ACOSTA ACOSTA Disease Active Univers (dyspnea (dyspnea 9-22 ity of on on 00:00: [place] exertion) exertion) 00 Medi xiomara Branch Other Other Disease Active Univers emphysema emphysema 9-22 ity of 00:00: [place] 00 Medical Branch Hypokalemi Hypokalemi Disease Active U nivers a a - ity of 00:00: [address] Cigarette Cigarette Disease Active Uni vers nicotine nicotine 11-09 [place] of dependence dependence 00:[place] without without 00 Medical complicati complicati Br anch on on Allergies, Adverse Reactions, Alerts Allergy Allergy Status Severity Reaction(s) Onset Inactive Treating Comm ents Source Name Type Date Date Clinician No Known DA Active [facility] No Known DA Active [facility] Allergie -26 [facility] 00:[facility] NO KNOWN Drug Active Univers ALLERGIE Class ity of S [facility] [place] [facility] NO KNOWN Allergy Active [facility] Social History Social Habit Start Date Stop Date Quantity Comments Source History of Passive smoker University of tobacco use [facility] [place] [facility] History SDOH [facility] Dr[facility] History SDOH [facility] Alcohol Binge Medical Rachel ter Exposure to 2022-05-25 2022-06-04 Not sure University SARS-CoV-2 00:00:00 12:45:00 [facility] (event) [place] Alcohol Comment 2022-03-24 2022-03-24 social Universit y of 00:00:00 00:00:00 [facility] [place] [facility] Tobacco use and 2022-03-24 2022-03-24 Smokeless tobacco Un iversity of exposure 00:00:00 00:00:00 non-user [facility] [place] [facility] Education 2021-03-22 2021-03-22 10 [facility] 00:00:00 00:00:00 [facility] [place] [facility] Alcohol intake 2019-05-08 2019-05-[address] [facility] 00:00:00 00:00:00 non-drinker of Medical Ce nter alcohol (finding) History SDOH 2019-05-08 2019-05-[address] [facility] Alcohol Frequency 00:00:00 00:00:00 [facility] Tobacco Comment 2019-05-08 2019-05-08 [facility]00 [facility] Sex Assigned At [address] [facility] 00:00:00 00:00:00 [facility] Smoking Status Start Date Stop Date Source Smokes tobacco daily 2022-03-24 00:00:00 Univers ity of [place] [facility] Ex-smoker 2019-05-08 00:00:00 2019-05-08 00:00:00 [facility] Medications Ordered Filled Start Stop Current Ordering Indication Dosage Frequency Signature Comments Components Source Medication Medication Date Date Medication? Clinician (SIG) Name Name furosemide 2022-3- No [id number] 20mg Take 1 Univers 20 mg 4-17 04-25 tablet by ity of tablet 00:00: 04:59 mouth [place] 00 :00 every Medical morning Branch for 7 days. naproxen 0 Yes [id number] 550mg Take 1 Univers sodium 550 4-04 tablet by ity of mg tablet 00:00[place] the Medical morning Branch and 1 tablet in the evening. Take with meals. methylPREDN 2022-0 Yes [id number] Take by Univers ISolone 4 4-04 mouth ity of mg tablets 00:00: [place] CTIONS. Medical follow Branch package directions naproxen 2022-0 Yes [id number] 550mg Take 1 Univers sodium 550 4-04 tablet by ity of mg tablet 00:00: [place] the Medical morning Branch and 1 tablet in the evening. Take with meals. methylPREDN 2022-0 Yes [id number] Take by Univers ISolone 4 4-04 mouth ity of mg tablets 00:00: [place] 00 CTIONS. Medical follow Branch package directions methocarbam 2022- No [id number] 500mg Take 1 Univers oL 500 mg 4-04 04-10 tablet by ity of tablet 00:00: 04:59 mouth in [place] 00 :00 the Medical morning Branch and 1 tablet at noon and 1 tablet in the evening. Do all this for 5 days. aspirin 2022-0 Yes 81mg 81 mg, Univers chewable 2-05 Oral, ity of tablet 81 15:00: DAILY, [place] mg 00 First dose Medical on Sun Branch 03/25/22 at 0900, Until Discontinu ed, Routine acetaminoph 2022-0 Yes 325mg Take 325 U nivers en 325 mg 2-05 mg by ity of tablet 13:59: mouth [place] 50 every 6 Medical (six) Branch hours as needed. aspirin 81 2022-0 Yes 81mg Take 81 mg U nivers mg chewable 2-05 by mouth ity of tablet 13:59: in the [place] 50 morning. Medical Branch acetaminoph 2023-0 Yes 325mg Take 325 U nivers en 325 mg 2-05 mg by ity of tablet 13:59: mouth [place] 50 every 6 Medical (six) Branch hours as needed. aspirin 81 3-0 Yes 81mg Take 81 mg U nivers mg chewable 2-05 by mouth ity of tablet 13:59: in the [place] 50 morning. Medical Branch acetaminoph 202-0 Yes 325mg Take 325 U nivers en 325 mg 2-05 mg by ity of tablet 13:59: mouth [place] 50 every 6 Medical (six) Branch hours as needed. aspirin 81 2022-0 Yes 81mg Take 81 mg U nivers mg chewable 2-05 by mouth ity of tablet 13:59: in the [place] 50 morning. Medical Branch acetaminoph 2022-0 Yes 325mg Take 325 U nivers en 325 mg 2-05 mg by ity of tablet 13:59: mouth [place] 50 every 6 Medical (six) Branch hours as needed. aspirin 81 2022-0 Yes 81mg Take 81 mg U nivers mg chewable 2-05 by mouth ity of tablet 13:59: in the [place] 50 morning. Medical Branch acetaminoph 2022-0 Yes 325mg Take 325 U nivers en 325 mg 2-05 mg by ity of tablet 13:59: mouth [place] 50 every 6 Medical (six) Branch hours as needed. aspirin 81 2022-0 Yes 81mg Take 81 mg U nivers mg chewable 2-05 by mouth ity of tablet 13:59: in the [place] 50 morning. Medical Branch acetaminoph 2023-0 Yes 325mg Take 325 U nivers en 325 mg 2-05 mg by ity of tablet 13:59: mouth [place] 50 every 6 Medical (six) Branch hours as needed. aspirin 81 3-0 Yes 81mg Take 81 mg U nivers mg chewable 2-05 by mouth ity of tablet 13:59: in the [place] 50 morning. Medical Branch nicotine 202-0 Yes 1{patch 1 Patch, Un reagan (NICODERM) 2-05 } Topical, ity o f 14 mg/24 hr 02:30: Administer [place] patch 1 00 over 24 Medical Patch Hours, Branch Q24H, First dose on 03/24/22 at 2030, Until Discontinu ed, Routine enoxaparin Yes 40mg 40 mg, Unive rs (LOVENOX) 03-24 Subcutaneo ity of injection 23:00: [place], DAILY, [place] 40 mg 00 First dose Medical on Sat Branch 03/24/22 at 1700, Until Discontinu ed, Routine ondansetron Yes 4mg 4 mg, Slow Univers (ZOFRAN 204 IV Push, ity of (PF)) 15:37: Q6HPRN, [place] injection 4 23 Starting Medi xiomara mg on Sat Branch 03/24/22 at 0937, Until Discontinu ed, Routine, Nausea and Vomiting (N/V) HYDROcodone 0 2022- No 1{tbl} 1 tablet, Univers -acetaminop 2 02-06 Oral, ity of hen (NORCO 15:36: 15:35 Q6HPRN, [place] 5) 5-325 mg 44 :44 Starting Medi xiomara tablet 1 on [facility] Branch tablet 03/24/22 at 0936, Until 03/26/22 at 0935, Routine, Pain (scale 4-6) acetaminoph Yes 650mg 650 mg, Un reagan en 04 Oral, ity of (TYLENOL) 15:36: Q6HPRN, [place] tablet 650 40 Starting Medic al mg on Sat Branch 03/24/22 at 0936, Until Discontinu ed, Routine, Pain (scale 1-3) ketorolac 0 2022- No 15mg 15 mg, Unive rs (TORADOL) 03-24 02-04 Slow IV ity of injection 15:30: 14:39 Push, [place] 15 mg 00 :00 ONCE, 1 Medical dose, On Branch 03/24/22 at 0930, Routine cefTRIAXone Yes 1000mg 1,000 mg, Univers (ROCEPHIN) 2-04 Slow IV ity of injection 14:30: [place], Q24H [place] 1,000 mg 00 ABX, First Medic al dose on Branch 03/24/22 at 0830, Until Discontinu ed, DAYANA<br&gt ;Reason for Anti-Infec tive: Empiric Therapy for Suspected Infection< br>Empiric Therapy Site: Respirator y
Durat ion of therapy: 72 hours azithromyci 2023-0 2023- No 500mg 500 mg, IV Univers n 03-24 Piggyback, ity of (ZITHROMAX) 14:15: 16:25 ONCE, 1 [place] 500 mg in 00 :00 dose, On Medica l NaCl 0.9% Sat 03/24/22 Bran ch (NS) 250 mL at 0815, VIAL-MATE Administer IV over 60 piggyback Minutes, 250 mL
R marco for Anti-Infec tive: Empiric Therapy for Suspected Infection< br>Empiric Therapy Site: Respirator y
Durat ion of therapy: 72 hours ipratropium 2023-0 2023- No 3mL 3 mL, Univ ers -albuteroL 03-24 Inhalation it y of (DUONEB) 13:30: 13:02 , ONCE, 1 [place] 0.5 mg-3 00 :00 dose, On Medical mg(2.5 mg 03/24/22 Bran ch base)/3 mL at 0730, nebulizer Routine solution 3 mL ipratropium 3-0 2023- No 3mL 3 mL, Univ ers -albuteroL 03-24 Inhalation it y of (DUONEB) 13:30: 13:03 , ONCE, 1 [place] 0.5 mg-3 00 :00 dose, On Medical mg(2.5 mg 03/24/22 Bran ch base)/3 mL at 0730, nebulizer Routine solution 3 mL ipratropium 2023-0 2023- No 3mL 3 mL, Univ ers -albuteroL 03-24 Inhalation it y of (DUONEB) 13:30: 13:03 , ONCE, 1 [place] 0.5 mg-3 00 :00 dose, On Medical mg(2.5 mg 03/24/22 Bran ch base)/3 mL at 0730, nebulizer Routine solution 3 mL methylpredn 3-0 2023- No 125mg 125 mg, U nivers isolone sod 03-24 Intravenou i ty of succ 13:15: 13:01 s, ONCE, 1 [place] (SOLU-MEDRO 00 :00 dose, On Medi xiomara L) 03/24/22 Branch injection at 0715, 2 125 mg mL KCL 2021- No 40meq 40 mEq, Univers (KLOR-CON 03-27 Oral, ity of M20) tablet 13:30: 12:31 ONCE, 1 [place] 40 mEq 00 :00 dose, On Medical 03/27/21 Branch at 0730, Routine HYDROcodone 2021- No 1{tbl} 1 tablet, Univers -acetaminop 03-27 Oral, ity of hen (NORCO 11:45: 10:54 ONCE, 1 [place] 5) 5-325 mg 00 :00 dose, On Medi xiomara tablet 1 Mon 03/27/21 Branc h tablet at 0545, DAYANA acetaminoph 2021-0 Yes 325mg Take 325 U nivers en 2-03 mg by ity of (TYLENOL) 18:43: mouth [place] 325 mg 10 every 6 Medical tablet (six) Branch hours as needed. acetaminoph 2021-0 Yes 325mg Take 325 U nivers en 2-03 mg by ity of (TYLENOL) 18:43: mouth [place] 325 mg 10 every 6 Medical tablet (six) Branch hours as needed. KCL 20 mEq 2021-0 Yes [id number] 20meq Take 1 Univers tablet 2-03 tablet by ity of 00:00: mouth [place] 00 daily. Medical Branch magnesium 2021-0 Yes [id number] 400mg Take 1 Univers oxide 400 2-03 tablet by ity o f mg (241.3 00:00: mouth [place] mg 00 daily. Medical magnesium) Branch tablet KCL 20 mEq 2021-0 Yes [id number] 20meq Take 1 Univers tablet 2-03 tablet by ity of 00:00: mouth [place] 00 daily. Medical Branch magnesium 2021-0 Yes [id number] 400mg Take 1 Univers oxide 400 2-03 tablet by ity o f mg (241.3 00:00: mouth [place] mg 00 daily. Medical magnesium) Branch tablet KCL 20 mEq 2021-0 Yes [id number] 20meq Take 1 Univers tablet 2-03 tablet by ity of 00:00: mouth [place] 00 daily. Medical Branch magnesium 2021-0 Yes [id number] 400mg Take 1 Univers oxide 400 2-03 tablet by ity o f mg (241.3 00:00: mouth [place] mg 00 daily. Medical magnesium) Branch tablet KCL 20 mEq 2021-0 Yes [id number] 20meq Take 1 Univers tablet 2-03 tablet by ity of 00:00: mouth [place] 00 daily. Medical Branch magnesium 2021-0 Yes [id number] 400mg Take 1 Univers oxide 400 2-03 tablet by ity o f mg (241.3 00:00: mouth [place] mg 00 daily. Medical magnesium) Branch tablet KCL 20 mEq 2021-0 Yes [id number] 20meq Take 1 Univers tablet 2-03 tablet by ity of 00:00: mouth [place] 00 daily. Medical Branch magnesium 2021-0 Yes [id number] 400mg Take 1 Univers oxide 400 2-03 tablet by ity o f mg (241.3 00:00: mouth [place] mg 00 daily. Medical magnesium) Branch tablet KCL 20 mEq 2021-0 Yes [id number] 20meq Take 1 Univers tablet 2-03 tablet by ity of 00:00: mouth [place] 00 daily. Medical Branch magnesium 2021-0 Yes [id number] 400mg Take 1 Univers oxide 400 2-03 tablet by ity o f mg (241.3 00:00: mouth [place] mg 00 daily. Medical magnesium) Branch tablet KCL 20 mEq 2021-0 Yes [id number] 20meq Take 1 Univers tablet 2-03 tablet by ity of 00:00: mouth [place] 00 daily. Medical Branch magnesium 2021-0 Yes [id number] 400mg Take 1 Univers oxide 400 2-03 tablet by ity o f mg (241.3 00:00: mouth [place] mg 00 daily. Medical magnesium) Branch tablet KCL 20 mEq 2021-0 Yes [id number] 20meq Take 1 Univers tablet 2-03 tablet by ity of 00:00: mouth [place] 00 daily. Medical Branch magnesium 2021-0 Yes [id number] 400mg Take 1 Univers oxide 400 2-03 tablet by ity o f mg (241.3 00:00: mouth [place] mg 00 daily. Medical magnesium) Branch tablet aspirin 81 2021-0 2022- No [id number] 81mg Take 1 Univers mg chewable 03-17 tablet by it y of tablet 00:00: 05:59 mouth [place] 00 :00 daily with Medical breakfast Branch for 30 days. aspirin 81 2021-0 2021- No [id number] 81mg Take 1 Univers mg chewable 03-17 tablet by it y of tablet 00:00: 05:59 mouth [place] 00 :00 daily with Medical breakfast Branch for 30 days. Lisinopril Lisinopril 2020-0 Yes [place] 1 tablet Common 02-25 [place] [facility] 00:00: - [facility] Icosapent Icosapent 2020-0 Yes [place] 2 capsules Common Ethyl Ethyl 02-25 [place] with meals [facility] 00:00: - [facility] Atorvastati Atorvastati 2020-0 Yes [place] 1 tablet Common n Calcium n Calcium 02-25 [place] [facility] 00:00: - [facility] Melatonin Melatonin 2020-0 Yes [place] 1 tablet Common 02-25 [place] at bedtime [facility] 00:00: as needed - [facility] Lorazepam Lorazepam 2020-0 Yes [place] 1 tablet Common 02-25 [place] as needed [facility] 00:00: - [facility] albuterol albuterol 2020-0 Yes [place] 1 tab Common 02-25 [place] [facility] 00:00: - [facility] Enulose Enulose 2020-0 Yes [place] 15 ml Com mon 02-25 [place] [facility] 00:00: - [facility] Omeprazole Omeprazole 2020-0 Yes [place] 1 capsule Common 02-25 [place] 30 minutes [facility] 00:00: before - morning [facility] Nitroglycer Nitroglycer 2020-0 Yes [place] as Common in in 02-25 [place] directed [facility] 00:00: - [facility] Tramadol Tramadol 2020-0 Yes [place] 1 tablet Common HCl HCl 02-25 [place] as needed Spirit 00:00: - [facility] Cymbalta Cymbalta 2020-0 Yes [place] 1 capsule Common 02-25 [place] [facility] 00:00: - [facility] Immunizations Ordered Filled Immunization Date Status Comments Sour e Immunization Name Name Influenza Virus 2021-03-16 Completed Universit y of Vaccine,quad 00:00:00 [place] Medica l Im,preserve Free Branch 65+ Influenza Virus 2021-03-16 Completed Universit y of Vaccine,quad 00:00:00 [place] Medica l Im,preserve Free Branch 65+ Influenza Virus 2021-03-16 Completed Universit y of Vaccine,quad 00:00:00 [place] Medica l Im,preserve Free Branch 65+ Influenza Virus 2021-03-16 Completed Universit y of Vaccine,quad 00:00:00 [place] Medica l Im,preserve Free Branch 65+ Influenza Virus 2021-03-16 Completed Universit y of Vaccine,quad 00:00:00 [place] Medica l Im,preserve Free Branch 65+ Influenza Virus 2021-03-16 Completed Universit y of Vaccine,quad 00:00:00 [place] Medica l Im,preserve Free Branch 65+ Influenza Virus 2021-03-16 Completed Universit y of Vaccine,quad 00:00:00 [place] Medica l Im,preserve Free Branch 65+ Influenza Virus 2021-03-16 Completed Universit y of Vaccine,quad 00:00:00 [place] Medica l Im,preserve Free Branch 65+ Influenza Virus 2019-01-27 Completed Universit y of Vaccine (3+ yrs) 00:00:00 [facility] dical Branch Pneumococcal 2019-01-27 Completed University o f Polysaccharide, 00:00:00 [place] Med ical PPSV23 (PNEUMOVAX) Branch Influenza Virus 2019-01-27 Completed Universit y of Vaccine (3+ yrs) 00:00:00 [facility] dical Branch Pneumococcal 2019-01-27 Completed University o f Polysaccharide, 00:00:00 [place] Med ical PPSV23 (PNEUMOVAX) Branch Influenza Virus 2019-01-27 Completed Universit y of Vaccine (3+ yrs) 00:00:00 [facility] dical Branch Pneumococcal 2019-01-27 Completed University o f Polysaccharide, 00:00:00 [place] Med ical PPSV23 (PNEUMOVAX) Branch Influenza Virus 2019-01-27 Completed Universit y of Vaccine (3+ yrs) 00:00:00 [facility] dicnm Branch Pneumococcal 2019-01-27 Completed University o f Polysaccharide, 00:00:00 [place] Med ical PPSV23 (PNEUMOVAX) Branch Influenza Virus 2019-01-27 Completed Universit y of Vaccine (3+ yrs) 00:00:00 [facility] Pneumococcal 2019-01-27 Completed University o f Polysaccharide, 00:00:00 [place] Med ical PPSV23 (PNEUMOVAX) Branch Influenza Virus 2019-01-27 Completed Universit y of Vaccine (3+ yrs) 00:00:00 [place] Ma dical Branch Pneumococcal 2019-01-27 Completed University o f Polysaccharide, 00:00:00 [place] Med ical PPSV23 (PNEUMOVAX) Branch Influenza Virus 2019-01-27 Completed Universit y of Vaccine (3+ yrs) 00:00:00 [place] Ma dical Branch Pneumococcal 2019-01-27 Completed University o f Polysaccharide, 00:00:00 [place] Med ical PPSV23 (PNEUMOVAX) Branch Influenza Virus 2019-01-27 Completed Universit y of Vaccine (3+ yrs) 00:00:00 [facility] dical Branch Pneumococcal 2019-01-27 Completed University o f Polysaccharide, 00:00:00 [place] Med ical PPSV23 (PNEUMOVAX) Branch Vital Signs Vital Name Observation Time Observation Value Comments Source Systolic blood 2022-06-04 17:16:00 147 mm[Hg] Univer sity of pressure [facility] [place] [facility] Diastolic blood 2022-06-04 17:16:00 108 mm[Hg] Unive rsity of [facility] Heart rate 2022-06-04 17:16:00 99 /min [facility] Respiratory rate 2022-06-04 17:16:00 20 /min [facility] Oxygen saturation in 2022-06-04 17:16:00 99 /min [facility] Arterial blood by [facility] Pulse oximetry Branch Body temperature 2022-06-04 13:51:00 36.39 [facility] Body weight 2022-06-04 13:51:00 81.647 kg [facility] BMI 2022-06-04 13:51:00 27.37 kg/m2 [facility] Systolic blood 2022-05-22 16:10:00 158 mm[Hg] Univer sity of pressure [facility] [place] [facility] Diastolic blood 2022-05-22 16:10:00 77 mm[Hg] Unive rsity of pressure [facility] [place] [facility] Heart rate 2022-05-22 16:10:00 89 /min [facility] Body temperature 2022-05-22 16:10:00 36.83 Ness Univ ersity of [place] [facility] Respiratory rate 2022-05-22 16:10:00 18 /min Univ ersity of [place] [facility] Oxygen saturation in 2022-05-22 16:10:00 99 /min University of Arterial blood by [facility] Pulse oximetry Branch Body height 2022-05-22 14:11:00 172.7 cm Universi ty of [place] [facility] Body weight 2022-05-22 14:11:00 81.647 kg Universi ty of [place] [facility] BMI 2022-05-22 14:11:00 27.37 kg/m2 Universi ty of [place] [facility] Systolic blood 2022-03-25 18:41:00 100 mm[Hg] Univer sity of pressure [place] [facility] Diastolic blood 2022-03-25 18:41:00 66 mm[Hg] Unive rsity of pressure [place] [facility] Heart rate 2022-03-25 18:41:00 72 /min Universi ty of [place] [facility] Body temperature 2022-03-25 18:41:00 35.83 N[place] Univ ersity of [place] [facility] Respiratory rate 2022-03-25 18:41:00 18 /min Univ ersity of [place] [facility] Oxygen saturation in 2022-03-25 18:41:00 98 /min University of Arterial blood by [facility] Pulse oximetry Branch Body weight 2022-03-25 08:59:00 76.975 kg Universi ty of [place] [facility] BMI 2022-03-25 08:59:00 25.80 kg/m2 Universi ty of [place] [facility] Body height 2022-03-24 19:01:00 172.7 cm Universi ty of [place] [facility] Systolic blood 2021-03-27 12:00:00 98 mm[Hg] Univer sity of pressure [place] [facility] Diastolic blood 2021-03-27 12:00:00 75 mm[Hg] Unive rsity of pressure [place] [facility] Heart rate 2021-03-27 12:00:00 63 /min Universi ty of [place] [facility] Respiratory rate 2021-03-27 12:00:00 10 /min Univ ersity of [place] [facility] Oxygen saturation in 2021-03-27 12:00:00 93 /min University of Arterial blood by [facility] xiomara Pulse oximetry Branch Body temperature 2021-03-27 09:57:44 37.06 [facility] Procedures Procedure Date / Time Performing Clinician Source Performed TROPONIN I 2022-06-04 14:49:00 Pat Montiel [facility] COMP. METABOLIC PANEL 2022-06-04 14:49:00 Pat Montiel [facility] ([id number]) Medical [place] CBC WITH DIFF 2022-06-04 14:49:00 Pat Montiel [facility] N-TERMINAL PRO-BNP 2022-06-04 14:49:00 Pat Montiel [facility] CONSENT/REFUSAL FOR 2022-06-04 13:44:43 Doctor Unassigned, No [facility] Name Medical Branch XR FEMUR 2 VW LEFT 2022-05-22 14:40:58 [place] [facility] XR KNEE <3 VW LEFT 2022-05-22 14:40:58 [place] [facility] CONSENT/REFUSAL FOR 2022-05-22 14:07:57 Doctor Unassigned, No [facility] Name [facility] TROPONIN I 2022-03-24 20:57:00 Corina [facility] URINALYSIS 2022-03-24 13:27:[address] [facility] ACUTE CARE ARTERIAL 2022-03-24 13:22:00 Ursula Mckeon [facility] BLOOD GAS [facility] Branch XR CHEST 1 VW 2022-03-24 13:02:[address] [facility] XR PELVIS <3 VW 2022-03-24 13:02:[address] [facility] CT CERVICAL SPINE WO 2022-03-24 12:53:33 Ursula Mckeon [facility] CT HEAD WO CONTRAST 2022-03-24 12:53:33 Ursula Mckeon [facility] CT LUMBAR SPINE WO 2022-03-24 12:53:33 Ursula Mckeon [facility] EKG-12 LEAD 2022-03-24 12:31:[address] [facility] LIPASE 2022-03-24 12:30:[address] [facility] TROPONIN I 2022-03-24 12:30:[address] [facility] COMP. METABOLIC PANEL 2022-03-24 12:30:00 Ursula Mckeon [facility] ([id number]) [facility] ETHANOL 2022-03-24 12:30:[address] [facility] CBC WITH DIFF 2022-03-24 12:30:[address] [facility] N-TERMINAL PRO-BNP 2022-03-24 12:30:00 Ursula Mckeon [facility] LACTIC ACID WHOLE BLOOD 2022-03-24 12:29:00 Ursula Mckeon [facility] TROPONIN I 2021-03-27 11:30:[address] [facility] COMP. METABOLIC PANEL 2021-03-27 10:51:00 Soumya Hilton [facility] ([id number] [place] [address] XR CHEST 1 VW 2021-03-27 10:21:[address] [facility] LIPASE 2021-03-27 10:07:[address] [facility] TROPONIN I 2021-03-27 10:07:[address] [facility] CBC WITH DIFF 2021-03-27 10:07:[address] [facility] PROTHROMBIN TIME / INR 2021-03-27 10:07:00 Soumya Hilton [facility] ACTIVATED PARTIAL 2021-03-27 10:07:00 Soumya Hilton [facility] [id number] 2020-05-17 00:00:00 LYSSA.Fuentes [facility] Encounters Start End Encounter Admission Attending Care Care Encounter Source Date/Time Date/Time Type Type Clinicians Facility Department ID 2021-03-15 Outpatient Carr, STLMLC [facility] [id number] Common 11:51:46 [facility] [address] [facility] it - [facility] 2021-03-15 Outpatient Carr, STLMLC [facility] [id number] Common 10:59:18 Alissa 61606 Spir it - [facility] 2021-03-[address] [facility] [id number] Common 10:58:52 Nahomy 93446 Spirit - [facility] 2020-12-20 Emergency [facility] [id number] Univers 00:26:09 [facility] 2020-05-20 Inpatient BENJI Valles, HCACR HCACR [id number] [facility] 06:54:33 Kate 95 [facility] 2022-06-04 2022-06-04 Emergency [facility] [id number] Univers 08:52:00 12:49:00 PAT [facility] 2022-06-04 2022-06-04 [facility] 1.2.098.250 [id number] Univers 08:52:00 12:49:00 Pat SAM 350.1.13.10 i ty of [place] 4.2.7.2.686 [facility] [id number] [address] 2022-05-22 2022-05-22 Emergency [facility] [id number] Univers 09:13:00 11:10:00 KYREE stefano [facility] 2022-05-22 2022-05-22 [facility] [id number] [id number] Univers 09:13:00 11:10:00 Kyree SAM 350.1.13.10 i ty of [place] 4.2.7.2.686 [facility] [id number] [address] 2022-03-30 2022-03-30 Case [facility] 1.2.840.114 [id number] Univers 00:00:00 00:00:00 Management Ash SAM 350.1.13.10 ity [facility] 4.2.7.2.686 [facility] PROFESSIO [id number] Ma dical [facility] 059 [facility] 2022-03-27 2022-03-27 Transition ALANA Mcfadden 1.2.840.114 [id number] Univers 00:00:00 00:00:00 of Care Lindsey B JULIEN 350.1.13.10 it y [place] [id number] [facility] [address] [place] 2022-03-24 2022-03-25 Outpatient X CORINA [facility] MIKI [id number] Univers 06:10:00 13:45:00 GREGG agarwal [facility] 2022-03-24 2022-03-25 Emergency Ursula Mckeon [facility] 1.2.840 .114 [id number] Univers 06:10:00 13:45:00 Kyree Oakley 350.1.13.10 ity of Gregg Arriaga 4.2.7.2.686 [facility] [id number] [address] 2021-03-27 2021-03-27 Emergency X [facility] ERT [id number] Univers 03:57:00 06:55:00 AMELIALI ity [facility] 2021-03-27 2021-03-27 Emergency [facility] 1.2.429.724 [id number] Univers 03:57:00 06:55:00 Soumya SAM 350.1.13.10 ity of [facility] 4.2.7.2.686 [place] [id number] [place] [address] [place] 2021-03-24 2021-03-24 Transition ALANA Mcfadden 1.2.840.114 [id number] Univers 00:00:00 00:00:00 of Care Lindsey B JULIEN 350.1.13.10 [place] [id number] [facility] [address] [place] 2021-03-22 2021-03-[address] [facility] 1.2.840 .114 [id number] Univers 05:27:00 18:42:00 Catarino Poon 350.1.13.10 ity of [place].2.7.2.[place] [id number] [place] [address] [place] 2021-03-23 2021-03-23 Outpatient R ALYSSA TRACEY [facility] 10 [id number] Univers 08:30:00 08:30:00 ALYSSA TRACEY i ty of [facility] 2021-03-23 2021-03-23 Outpatient R ALYSSA TRACEY [facility] [id number] Univers 08:30:00 08:30:00 ALYSSA TRACEY i ty of [facility] 2021-03-23 2021-03-23 Outpatient R PATRICK TRACEYSDIvis [facility] 10 [id number] Univers 08:30:00 08:30:00 ALYSSA TRACEY i ty of [facility] 2021-03-17 2021-03-17 Transition ALANA Mcfadden 1.2.840.114 [id number] Univers 00:00:00 00:00:00 of Care Lindsey MCKEONY 350.1.13.10 it [place] [id number] [facility] 403 [address] 2021-03-12 2021-03-16 Outpatient X DREW [facility] MIKI [id number] Univers 23:02:00 14:45:00 ADNAN ity of [facility] 2021-03-12 2021-03-16 Outpatient X DREW [facility] MIKI [id number] Univers 23:02:00 14:45:00 ADNAN ity of [facility] 2021-03-12 2021-03-16 Outpatient X DREW [facility] MIKI [id number] Univers 23:02:00 14:45:00 ADNAN ity [facility] 2021-03-12 2021-03-16 Emergency Kyree Oakley [facility] 1.2.840. 114 [id number] Univers 23:02:00 14:45:00 Jus Stahljuly SAM 350.1.13.10 ity of [place].2.[place] [id number] [facility] 081 Branch 2021-02-02 2021-02-02 Transition ALANA Mcfadden 1.2.840.114 [id number] Univers 00:00:00 00:00:00 of Care Lindsey B JULIEN 350.1.13.10 [place] [id number] [facility] 403 Branch 2021-01-28 2021-02-01 Outpatient X [facility] [id number] Univers 15:03:00 16:45:00 [facility] 2021-01-28 2021-02-01 Emergency Susu Mcmullen 1.2.840. 114 [id number] Univers 15:03:00 16:45:00 Gregg Arriaga 350.1.13.10 ity [facility] 4.2.7.2.686 [place] [id number] [facility] 090 Branch 2021-01-26 2021-01-27 [facility] [id number] Univers 19:14:00 00:40:00 SDTRAV ity [facility] 2021-01-26 2021-01-27 Emergency [facility] 1.2.273.670 [id number] Univers 19:14:00 00:40:00 [facility] CECY 350.1.13.10 ity of [place].2.[place] [id number] [facility] 084 Branch 2020-12-21 2020-12-22 Outpatient U MATY LEDESMA [facility] MIKI [id number] Univers 06:43:00 22:32:00 ity of [facility] 2020-12-21 2020-12-22 Emergency Teresa Rod [facility] 1.2.8 40.114 [id number] Univers 06:43:00 22:32:00 Trung [facility] 350.1.13.10 ity of [place].2.686 [place] [id number] [facility] 116 Branch (CLC) 2020-12-20 2020-12-20 Transition ALANA Mcfadden 1.2.840.114 [id number] Univers 00:00:00 00:00:00 of Care Lindsey JULIEN 350.1.13.10 it y of [place] [id number] [facility] 403 Branch 2020-12-17 2020-12-18 Outpatient X YOBANI [facility] [id number] Univers 04:11:00 14:00:00 SOUMYA ity of [facility] 2020-12-17 2020-12-18 Emergency Soumya Hilton [facility] 1.2.840 .114 [id number] Univers 04:11:00 14:00:00 Timmy Alvarez 350.1.13.10 ity [place] [id number] [facility] 081 Branch 2020-12-09 2020-12-09 Telephone [facility] 1.2.845.429 [id number] Univers 00:00:00 00:00:00 Sam PRIMARY 350.1.13.10 it y of [place] [facility] [id number] [facility] 388 Branch 2020-12-08 2020-12-08 Transition Alana Mcfadden 1.2.840.114 [id number] Univers 00:00:00 00:00:00 of Care Lindsey B Julien 350.1.13.10 it y of [place] [id number] [facility] 403 Branch 2020-12-06 2020-12-07 Emergency Kyree Oakley Lesley 1.2.840. 114 [id number] Univers 16:01:00 18:47:00 Jeanine Conner 350.1.13.10 ity of [facility] 4.2.7.2.686 [place] [id number] [facility] 089 Branch 2020-12-06 2020-12-07 Outpatient X LAZARO [facility] [id number] Univers 16:01:00 18:47:00 JEANINE agarwal of [facility] 2020-11-25 2020-11-25 Transition Alana Mcfadden 1.2.840.114 [id number] Univers 00:00:00 00:00:00 of Care Lindsey B Julien 350.1.13.10 it y of [place] [id number] [facility] 403 Branch 2020-11-21 2020-11-24 Emergency CiriloerMariah zazueta [facility] 1.2.840.114 [id number] Univers 05:09:00 12:44:00 Timmy Alvarez Cecy 350.1.13.10 ity of [place] 4.2.7.2.686 [facility] [id number] [place] [address] Branch 2020-11-21 2020-11-24 [facility] [id number] Univers 05:09:00 12:44:00 TIMMY ity [facility] 2020-11-23 2020-11-23 Surgery Rico [facility] 1.2.371.681 [id number] Univers 17:30:00 18:07:00 Taylor Sam 350.1.13.10 i ty of [place] 4.2.7.2.686 [facility] Surgical [id number] [facility] 020 Branch 2020-11-14 2020-11-14 Outpatient R KT [facility] [id number] Univers 08:25:00 08:25:00 SENDIL ity [facility] 2020-11-11 2020-11-11 Transition Alana Murcia 1.2.840.114 [id number] Univers 00:00:00 00:00:00 of Care Gurdeep Julien 350.1.13.10 ity of [place] 4.2.7.2.686 [facility] [phone] [facility] 403 Branch 2020-11-09 2020-11-[address] [facility] 1.2.840 .114 [id number] Univers 03:03:00 15:20:00 Marbella Stahl 350.1.13.10 ity of [place] 4.2.7.2.686 [facility] [id number] [place] [address] Branch 2020-10-13 2020-10-13 Letter KATE Juan 1.2.840.114 [id number] Univers 00:00:00 00:00:00 (Out) Serg RESTREPO 350.1.13.10 it y of [facility] 4.2.7.2.686 [place] [id number] [facility] 043 Branch 2020-09-26 2020-09-26 Hospital Radiology [facility] 1.2.840.114 [id number] Univers 10:21:26 23:59:00 Encounter Cecy 350.1.13.10 ity of [place].2.[place] [facility] [id number] [facility] xiomara 801 Branch 2020-09-26 2020-09-26 Outpatient R RADIOLOGY [facility] [id number] Univers 00:00:00 00:00:00 ity of [facility] 2020-09-26 2020-09-26 Orders Doctor KATE 1.2.840.114 [id number] Univers 00:00:00 00:00:00 Only Unassigned, KAYE 350.1.13.10 ity of [place] [facility] 4.2.7.2.686 [place] [id number] [facility] 009 Branch 2019-05-08 2019-05-08 Outpatient [facility]H [facility] [id number] [facility] 00:00:00 00:00:00 [id number] 2019-04-20 2019-04-20 Outpatient [facility] [id number] Common 10:34:00 10:34:00 t [facility] 2019-03-05 2019-03-05 Outpatient [facility] [id number] Common 11:48:00 11:48:00 t Bone Bone and Spiri t and Joint Joint - [facility] 2019-03-05 2019-03-05 Outpatient [facility] [id number] Common 08:34:00 08:34:00 t Bone Bone and Spiri t and Joint Joint - [facility] 2019-03-02 2019-03-02 Outpatient [facility] [id number] Common 09:48:00 09:48:00 t Bone Bone and Spiri t and Joint Joint - [facility] 2019-02-26 2019-02-26 Outpatient [facility] [id number] Common 12:02:00 12:02:00 t Bone Bone and Spiri t and Joint Joint - [facility] 2019-02-25 2019-02-25 Outpatient Dangelo Miner [id number] Common 09:00:00 09:00:00 t Bone Bone [facility] Spiri t and Joint [facility] Results Test Description Test Time Test Comments Results Result Comments Source TROPONIN I 2022-06-04 15:37:20 Test Item Value Reference Range Interpretation Comme nts TROPONIN I (test code = 6748215241) 0.013 ng/mL <=0.034 RUCHI (test code = RUCHI) Reference (Normal) [...] to patient's use of biotin. Lab Interpretation (test code = Normal 66845-0) [facility] [id number] 15:34:23 Test Item Value Reference Range Interpretation Comments NT-proBNP (test code = 238 pg/mL <=125 H 4422405901) RUCHI (test code = RUCHI) Biotin has been reported to cause a negative bias, interpret results relative to patient's use of biotin. Lab Interpretation (test Abnormal code = 01964-4) [facility] MET[facility]OLIC PANEL (01503)2022-06-04 15:27:02 Test Item Value Reference Range Interpretation Comments NA (test code = 138 mmol/L 135-145 8539915544) K (test code = 3.3 mmol/L 3.5-5.0 L 6584027728) CL (test code = 101 mmol/L 98-108 2814169359) CO2 TOTAL (test code = 23 mmol/L 23-31 3342694535) AGAP (test code = 14 2-16 1323461667) BUN (test code = 14 mg/dL 7-23 4375512711) GLUCOSE (test code = 106 mg/dL 70-110 1318233232) CREATININE (test code = 0.89 mg/dL 0.60-1.25 1998584755) TOTAL BILI (test code = 0.8 mg/dL 0.1-1.9 7875989944) CALCIUM (test code = 9.4 mg/dL 8.6-10.6 2319083549) T PROTEIN (test code = 6.7 g/dL 6.3-8.2 9367547630) ALBUMIN (test code = 4.0 g/dL 3.5-5.0 5006548063) ALK PHOS (test code = 86 U/L 34-122 5576817223) ALTv (test code = 22 U/L 5-50 2-6) AST(SGOT) (test code = 26 U/L 13-40 0647003576) eGFR (test code = 83.8 mL/min/1.73m2 1414850897) RUCHI (test code = RUCHI) Association of [...] tests). Lab Interpretation Abnormal (test code = 79749-5) [facility] WITH [id number] 15:12:21 Test Item Value Reference Range Interpretation Comments WBC (test code = 9.64 See_Comment [Automated 6690-2) message] The sy stem which generated this result transmitted reference range : 4.20 - 10.70 10*3/?L. The reference range was not used to interpret this result as normal/abnormal . RBC (test code = 4.91 See_Comment [Automated 789-8) message] The sy stem which generated this result transmitted reference range : 4.26 - 5.52 10*6/?L. The reference range was not used to interpret this result as normal/abnormal . HGB (test code = 15.9 g/dL 12.2-16.4 718-7) HCT (test code = 46.0 % 38.4-49.3 4544-3) MCV (test code = 93.7 fL 81.7-95.6 787-2) MCH (test code = 32.4 pg 26.1-32.7 785-6) MCHC (test code = 34.6 g/dL 31.2-35.0 786-4) RDW-SD (test code = 42.5 fL 38.5-51.6 44571-8) RDW-CV (test code = 12.2 % 12.1-15.4 788-0) PLT (test code = 185 See_Comment [Automated 777-3) message] The sy stem which generated this result transmitted reference range : 150 - 328 10*3/ ?L. The reference r jeff was not used to interpret this result as normal/abnormal . MPV (test code = 11.0 fL 9.8-13.0 18484-2) NRBC/100 WBC (test 0.0 See_Comment [Automat ed code = 0510291187) message] The system which generated this result transmitted reference range : 0.0 - 10.0 /100 WBCs. The refer ence range was not u sed to interpret th is result as normal/abnormal . NRBC x10^3 (test code See_Comment [Auto mated = 5288367974) message] The s ystem which generated this result transmitted reference range : 10*3/?L. The reference range was not used to interpret this result as normal/abnormal . GRAN MAT (NEUT) % 67.5 % (test code = 770-8) IMM GRAN % (test code 0.60 % = 3052385713) LYMPH % (test code = 16.2 % 736-9) MONO % (test code = 12.0 % 5905-5) EOS % (test code = 2.6 % 713-8) BASO % (test code = 1.1 % 706-2) GRAN MAT x10^3(ANC) 6.50 10*3/uL 1.99-6.95 (test code = 1393622209) IMM GRAN x10^3 (test 0.06 10*3/uL 0.00-0.06 code = 9469584308) LYMPH x10^3 (test code 1.56 10*3/uL 1.09-3.23 = 731-0) MONO x10^3 (test code 1.16 10*3/uL 0.36-1.02 H = 742-7) EOS x10^3 (test code = 0.25 10*3/uL 0.06-0.53 711-2) BASO x10^3 (test code 0.11 10*3/uL 0.01-0.09 H = 704-7) Lab Interpretation Abnormal (test code = 17737-7) [facility] Whole [id number] 14:59:17 Test Item Value Reference Range Interpretation Comments LACTIC ACID (test code = 1.63 mmol/L 0.50-2.20 3100654108) Lab Interpretation (test code = Normal 00557-1) [facility] [id number] 12:16:13 Test Item Value Reference Interpretation Comments Range TROPONIN I (test 0.007 ng/mL See_Comment [Automated code = 9338879021) message] The system which generated this result [...] biotin. Lab Interpretation Normal (test code = 55028-6) [facility] METABOLIC PANEL ([id number])2021-03-27 11:23:51 Test Item Value Reference Range Interpretation Comments NA (test code = 133 mmol/L 135-145 L 4507538220) K (test code = 3.2 mmol/L 3.5-5.0 L 6123275922) CL (test code = 101 mmol/L 98-108 0811067381) CO2 TOTAL (test code = 24 mmol/L 23-31 7812401312) AGAP (test code = 2-16 5438607949) BUN (test code = 11 mg/dL 7-23 7564057926) GLUCOSE (test code = 93 mg/dL 70-110 0144826780) CREATININE (test code = 0.64 mg/dL 0.60-1.25 4355383592) TOTAL BILI (test code = 0.4 mg/dL 0.1-1.7 1540493588) CALCIUM (test code = 8.2 mg/dL 8.6-10.6 L 8224409829) T PROTEIN (test code = 5.2 g/dL 6.3-8.2 L 7906229955) ALBUMIN (test code = 3.1 g/dL 3.5-5.0 L 9600161629) ALK PHOS (test code = 74 U/L 34-122 5307305888) ALTv (test code = 23 U/L 5-50 1742-6) AST(SGOT) (test code = 41 U/L 13-40 H 2377594888) eGFR (test code = mL/min/1.73m2 1339233973) RUCHI (test code = RUCHI) Association of [...] tests). Lab Interpretation Abnormal (test code = 58271-2) [facility] [id number] 10:55:44 Test Item Value Reference Interpretation Comments Range TROPONIN I (test 0.019 ng/mL See_Comment [Automated code = 9268586769) message] The system which generated this result [...] biotin. Lab Interpretation Normal (test code = 97849-5) [facility] WITH [id number] 10:45:28 Test Item Value Reference Range Interpretation Comments WBC (test code = See_Comment [Automated 6690-2) message] The sy stem which [...] g/dL 12.2-16.4 718-7) HCT (test code = 37.3 % 38.4-49.3 L 4544-3) MCV (test code = 99.2 fL 81.7-95.6 H 787-2) MCH (test code = 34.3 pg 26.1-32.7 H 785-6) MCHC (test code = 34.6 g/dL 31.2-35.0 786-4) RDW-SD (test code = 70.5 fL 38.5-51.6 H 65869-1) RDW-CV (test code = 19.1 % 12.1-15.4 H 788-0) PLT (test code = See_Comment [Automated 777-3) message] The sy stem which generated this result transmitted reference range : 150 - 328 10*3/ ?L. The reference r jeff was not used to interpret this result as normal/abnormal . MPV (test code = 11.5 fL 9.8-13.0 79084-5) NRBC/100 WBC (test See_Comment [Automat ed code = 8838080039) message] The system which generated this result transmitted reference range : 0.0 - 10.0 /100 WBCs. The refer ence range was not u sed to interpret th is result as normal/abnormal . NRBC x10^3 (test code <0.01 See_Comment [Auto mated = 9404545832) message] The s ystem which generated this result transmitted reference range : 10*3/?L. The reference range was not used to interpret this result as normal/abnormal . GRAN MAT (NEUT) % 51.7 % (test code = 770-8) IMM GRAN % (test code 0.70 % = 1518055699) LYMPH % (test code = 34.1 % 736-9) MONO % (test code = 9.7 % 5905-5) EOS % (test code = 2.2 % 713-8) BASO % (test code = 1.6 % 706-2) GRAN MAT x10^3(ANC) 2.83 10*3/uL 1.99-6.95 (test code = 1020666672) IMM GRAN x10^3 (test 0.04 10*3/uL 0.00-0.06 code = 8120975601) LYMPH x10^3 (test code 1.87 10*3/uL 1.09-3.23 = 731-0) MONO x10^3 (test code 0.53 10*3/uL 0.36-1.02 = 742-7) EOS x10^3 (test code = 0.12 10*3/uL 0.06-0.53 711-2) BASO x10^3 (test code 0.09 10*3/uL 0.01-0.09 = 704-7) Lab Interpretation Abnormal (test code = 50402-9) [facility], [id number] 10:42:41 Test Item Value Reference Range Interpretation Comments LIPASE (test code = 1694464713) 37 U/L 0-220 Lab Interpretation (test code = Normal 93395-4) [facility] HospitalaPTT2022-02-07 10:25:02 Test Item Value Reference Range Interpretation Comments APTT Patient (test See_Comment [Automat ed code = 3173-2) message] The system which generated this result transmitted reference range : 23 - 38 Seconds . The reference range was not used to interpr et this result as normal/abnormal . RUCHI (test code = RUCHI) The [facility] patient population mean normal value for aPTT is 30 seconds. Lab Interpretation Normal (test code = 44729-8) [facility] HospitalPROTHROMBIN TIME / [id number] 10:23:01 Test Item Value Reference Range Interpretation Comments PROTIME PATIENT (test See_Comment [Auto mated message] code = 5964-2) The system wh [employer] generated this result transmitted ref erence range: 12.0 - 1 4.7 Seconds. The re ference range was not u sed to interpret this result as normal/abnor mal. INR (test code = 6301-6) Nor mal INR <1.1; Warfarin Therap eutic range 2.0 to 3. 0 or 2.5 to 3.5, dep ending upon the indica tions. Lab Interpretation (test Normal code = 12508-0) [facility] [id number] 08:15:00 Test Item Value Reference Range Interpretation [...] (test code = MG Index/DL The system whic h HEMINDEX) generated this result transmit [place] [...] this result as normal/abnormal . CBC W/AUTO [id number] 07:31:00 Test Item Value Reference Range Interpretation [...] 0.09 K/mm3 0.00-0.05 H NRBC#) COMPREHENSIVE METABOLIC [id number] 22:54:00 Test Item Value Reference Range Interpretation [...] (test code = MG Index/DL The system [employer]) generated this result transmit [place] reference range [...] Is this a LINE draw? NCOMPREHENSIVE METABOLIC [id number] 22:52:00 Test Item Value Reference Range Interpretation [...] (test code = MG Index/DL The system Myer HEMINDEX) generated this result transmit [place] reference [...] LINE draw? N- XR SHOULDER 1 V [id number] 15:15:00 [facility] : 1950 Sex: MFAX: Kate Valles Jr [phone] [place]: St: ADM Patient Name: SPRING COOPER Unit No: [id number] EXAMS: CPT CODE: [id number] XR SHOULDER 1 V LT 21063 Left shoulder one AP view INDICATION: Postop LOCATION: T18 Changes of reverse shoulder arthroplasty noted in satisfactory position and alignment with no complicating features identified. at 1515 Reported and signed by: Kate Diaz D.O. CC: Kate Valles Jr, MD Dictated Date/Time: 05/17/2020 (674)Technologist: Quentin Garcia Transcribed Date/Time: 05/17/2020 (151) By: Shanti Orig Print D/T: S: 05/17/2020 (8712) [facility] Deb NAME: SPRING COOPER CHERYL [facility] JACK GING PHYS: LYSSA. [facility] Region[facility]onserratKate [address] [place] : 1950 AGE: 69 SEX: Lizzy [place], [place] [id number] LOC: [place] PHONE #: [phone] EXAM DATE: 05/17/2020 STATUS: ADM IN FAX #: [phone] RAD NO: DC Dt: PAGE 1 Signed ReportPOC VENOUS BLOOD [id number] 12:52:00 Test Item Value Reference Range Interpretation Comments POC CALCIUM (test code = 1.22 MMOL/L 1.15-1.33 N POCCA) POC VENOUS BLOOD GAS PH (test 7.365 pH units 7.32-7.43 N code = POCPHV) POC VENOUS BLOOD GAS PCO2 41.5 mmHg 41.0-51.0 N (test code = [id number]) POC VENOUS BLOOD GAS PO2 38.6 mmHg 10.0-50.0 N (test code = GSEXQ3T) POC HCO3 VENOUS (test code = 23.7 MMOL/L 22.0-29.0 N [id number]) POC BASE EXCESS VENOUS (test -1.6 MMOL/L -2.0-3.0 N code = POCBEV) POC O2 SATURATION VENOUS 71 % 60-80 N (test code = HUZI6KI) PT. HGB (test code = PHGBVBG) 12.8 [...] Specimen = POCSAMPLE) COVID 19 Asymptomatic IH [id number] 09:29:00 Test Item Value Reference Range Interpretation Comments COVID 19 Asymptomatic IH AG (test Negative Neg code = COVNONPUIAG) Specimen comments: PREOP- XR CHEST 2 [id number] 14:12:00 [facility] SPR[facility] : 1950 Sex: MFAX: Kate Valles [phone] [place]: St: PRE Patient Name: SPRING COOPER Unit No: [id number] EXAMS: CPT CODE: [id number] XR CHEST 2 V 03101 INDICATION: PRE OP, COPD LOCATION: T18 COMPARISON [...] may be degenerative or posttraumatic in etiology. IMPRESSION: 1. There is a 2.5 cm pulmonary nodularity overlying the right hilar region and a 1.1 cm pulmonary nodularity overlying the left upper lobe. Recommend further characterization with CT chest without contrast as neoplasm is not excluded. 2. Hyperinflation of lungs consistent with history of COPD. 3. 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 at 1412 Reported and signed by: Spring Reynolds MD CC: Kate Valles Jr, MD Dictated Date/Time:05/13/2020 (1411)Technologist: Harjinder Chacon Transcribed Date/Time: 05/13/2020 (1411) By: [email or web address] Orig Print D/T: S: 05/13/2020 (804) 504 Imaging NAME: SPRING COOPER [address] [place] [address] PHYS: LYSSA. - [place] : 1950 AGE: 69 SEX: M [id number] LOC: JIAN PHONE #: [phone] EXAM DATE: 05/13/2020 STATUS: PRE SDC FAX #: [phone] RAD NO: DC Dt: PAGE 1 Signed ReportPOTASSIUM 2020-05-13 13:10:00 Test Item Value Reference Range Interpretation Comments POTASSIUM (test code = K) 4.4 mmol/L 3.5-5.1 N HGB [id number] 13:02:00 Test Item Value Reference Range Interpretation Comments RED BLOOD CELL (test code = RBC) 4.27 M/mm3 3.8-5.5 N HEMOGLOBIN (test code = HGB) 12.7 G/DL 10.6-15.8 N HEMATOCRIT (test code = HCT) 39.7 % 31.8-47.4 N MEAN CELL VOLUME (test code = MCV) 93.0 fL 80.1-101.1 N Notes Date/Time Note Provider Source 2020-05-18 09:41:00-00:00 [facility] DT PROGRESS NOTE REPORT#:[id number] REPORT STATUS: Signed DATE:05/18/20 TIME: 940 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 He reports sleeping well. He does note that the tip of his thumb volar asp ect on the left beyond the interphalangeal joint is numb. Vital signs: Patient is remained afebrile postop eratively; vital signs are stable Exam: Patient awake alert co nversant lying in the hospital bed with head of bed elevated 30 degrees. Surgical bandages in place over the anterior approach to the left shoulder. The left arm is in a shoulder immobilizer. The hand is warm and has fully normal sensation except for the vo lar tip of the thumb from the interphalangeal joint to the nail which has some mildly diminished sensation to light touch. Complete normal sensation elsewhere in the thumb and down the upper extremity. Normal sensation in the axillar y nerve sensory distribution over the lateral deltoid. Laboratory: Hemoglobin 9.9 hematocrit 31.6 Orthopedic assessment and plan: Postoperative da y #1 status post left reverse total shoulder arthroplasty for severely arthritic posttraumatic left proximal humerus. Patient doing very well with pain contr ol. No evidence of axillary nerve dysfunction. The numbness over the volar t ip of the left thumb potentially could be due to the nerve bl ock and we will simply observe. I have asked the patient to pay attention to th at particular issue. Will discharge to home. Discharge instructions have been given. Jesse nunez's follow-up within the next [address] 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 UNIT #: [id number] ROOM/BED: [address] : [birth year] AGE: 69 SEX: M ATTEND: Savannah Valles Jr, MD ADM AUTHOR: Carlo Ragland MD * ALL edits or amendments must be made on the Americanflat/[employer]io[employer] document * Subjective Chief Complaint: pain control Objective General VS/I O: Vital Signs: Date Time Temp Pulse Resp B/P B/P Pulse O2 O2 F low FiO2 Mean Ox Delivery Rate 05/18 1227 98.2 86 15 87/50 62.7 95 Room air 05/18 0841 97.9 84 14 93/60 71.0 95 Room air 05/18 0448 97.9 86 16 97/64 74.9 94 Room air 05/18 0122 97.7 85 16 98/66 76.3 96 Room air 05/17 2129 98.1 92 16 96/64 74.5 94 Room air 05/17 1815 97.7 91 17 101/71 80.6 95 Room air 05/17 1733 97.4 92 19 105/58 97 Room air 0 05/17 1700 86 16 110/68 98 Nasal 2 cannula 05/17 1630 85 17 117/66 97 Nasal 4 cannula 05/17 1600 85 18 105/58 96 Nasal 4 cannula 05/17 1530 93 18 103/61 95 Nasal 4 cannula 05/17 1515 86 19 101/56 95 Nasal 4 cannula 24 hour I O ending at 0700: 05/18 0700 05/17 1900 Intake Total 1200.00 500.00 Output Total 400 Balance 800.00 500.00 Intake, IV 600.00 500.00 Intake, Oral 600 Output, Urine 400 Patient 96.162 kg Weight Weight Standing scale Measurement Method PATIENT WEIGHT: Weight (lb): 212 Weight (oz): 1.36 Weight (kg): 96.162 Medications: Active Meds + DC'd Last 24 Hrs Atorvastatin Calcium 20 MG BEDTIME PO (DCD) Duloxetine HCl 30 MG DAILY PO (DCD) Lisinopril 10 MG DAILY PO (DCD) Memantine 7 MG DAILY PO (DCD) Pantoprazole 40 MG DAILY PO (DCD) Dextrose/Water 25 ML ASDIR PRN IV (DCD) Glucagon 1 MG ASDIR PRN IM (DCD) Glucose Polymer 15 GM ASDIR PRN PO (DCD) Insulin Human Lispro See Admin Criteria ASDIR PRN SUBQ (DCD) Sodium Polystyrene Sulfonate 15 GM NOW ONE PO (C AN) Albuterol Sulfate 2 PUFF RTQ4H PRN PRN INH (DCD) Lactulose 30 ML BID PRN PRN PO (DCD) Docusate Sodium 100 MG BID PO (DCD) Mupirocin 1 APPLIC BID NASAL (DCD) Pregabalin 75 MG BID PO (DCD) Cefazolin Sodium 2 GM Q8H IV (DC) Sterile Water 20 ML Q8H IV (DC) Albuterol Sulfate 2.5 MG PACU ONCE PRN PRN INH ( DC) Fentanyl Citrate 25 MCG PACU Q5MIN PRN PRN IV (D C) Metoprolol Tartrate 2 MG PACU Q5MIN PRN PRN IV (DC) Naloxone HCl 0.1 MG PACU ONCE PRN PRN IV (DC) Ondansetron HCl 4 MG PACU ONCE PRN PRN IV (DC) Parenteral Electrolytes 1,000 ML PACU IV (DC) Acetaminophen 1,000 MG Q8HR PO (DCD) Bisacodyl 10 MG DAILY PRN PRN RECTAL (DCD) Hydromorphone HCl 0.5 MG Q3H PRN PRN IV (DCD) Lactated Ringer's 1,000 ML .[id number] IV (DC) Magnesium Hydroxide 30 ML DAILY PRN PRN PO (DCD) Ondansetron HCl 4 MG Q6H PRN PRN IV (DCD) Oxycodone HCl 5 MG Q6H PRN PRN PO (DCD) Oxycodone HCl 10 MG Q6H PRN PRN PO (DCD) Oxycodone HCl 15 MG Q6H PRN PRN PO (DCD) Temazepam 15 MG BEDTIME PRN PRN PO (DCD) Acetaminophen 1,000 MG ONCALL PO (DCD) Celecoxib 400 MG ONCALL PO (DCD) Pregabalin 150 MG ONCALL PO (DCD) Scopolamine 1 PATCH ONCALL TRANSDERM (DCD) Lactated Ringer's 1,000 ML PREOP IV (DCD) Lidocaine HCl 0.1 ML PREOP I-DERMAL (DCD) Tranexamic Acid 1,000 MG PREOP ASDIR IV (DCD) Sodium Chloride 100 ML Pregabalin 75 MG PREOP ONCE PO (DC) Diagnosis, Assessment Plan Free Text DxA P Notes Free text DxA P notes: This is a 69-year-old gentleman with past medica l history of diabetes hypertension dementia and depression he was elec tively brought into the ER because of the chronic shoulder pain he underwen t left shoulder arthroplasty medicine was consulted for medical management he denies any nausea vomiting diarrhea abdominal pain he d enies chest pain shortness of breath he denies loss of consciousness seizure activity S/p left shoulder arthroplasty Continue pain control Supportive care Follow-up with orthopedic Diabetes mellitus Continue home medication Insulin sliding scale LEA Avoid nephrotoxins Monitor renal functions Hyperkalemia Kayexalate Recheck potassium Low potassium diet Hypertension Optimize blood pressure control Depression and dementia Continue home medication DVT and GI prophylaxis Advanced directive discussed Medication reviewed and reconciled at 1504 RPT #:[id number] END OF REPORT 2020-05-18 03:17:00-00:00 [facility] ([facility]) Consultation Note - Brief REPORT#:[id number] REPORT STATUS: Signed DATE:05/18/20 TIME: 316 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 UNIT #: [id number] ROOM/BED: [address] : [birth year] AGE: 69 SEX: M ATTEND: Savannah Valles Jr, MD ADM AUTHOR: Maty Wolf MD * ALL edits or amendments must be made on the Americanflat/computer document * History of Present Illness HPI Requesting Clinician: dr monserrat oliveira Reason for consult: Medical management Chief complaint: Shoulder pain History of present illness: This is a 69-year-old gentleman with past medica l history of diabetes hypertension dementia and depression he was elec tively brought into the ER because of the chronic shoulder pain he underwen t left shoulder arthroplasty medicine was consulted for medical management he denies any nausea vomiting diarrhea abdominal pain he d enies chest pain shortness of breath he denies loss of consciousness seizure activity History - Adult longitudinal Additional medical history: Diabetes hypertension hyperlipidemia depression and dementia osteoarthritis Smoking status: Smoking status for patients 13 years old or old er: Former Smoker Date last smoked: 02/18/18 Packs per day: 2 Years smoked: 60 Pack years: 120 Medications: Laboratory Tests: 05/17 05/17 05/17 2214 1249 0900 Blood Gas VBG pH (7.32 - 7.43 pH units) 7.365 VBG pCO2 (41.0 - 51.0 mmHg) 41.5 VBG pO2 (10.0 - 50.0 mmHg) 38.6 VBG HCO3 (22.0 - 29.0 MMOL/L) 23.7 VBG O2 Saturation (60 - 80 %) 71 VBG Base Excess (-2.0 - 3.0 MMOL/L) -1.6 VBG Hematocrit (38.0 - 51.0 %) 38.0 VBG Hemoglobin (12.0 - 17.0 G/DL) 12.8 Oxygen Content (15.0 - 23.0 mL/dL) 23.7 H Sodium (138 - 146 MMOL/L) 137 L Potassium (3.5 - 4.5 MMOL/L) 5.5 H Glucose (74 - 100 MG/DL) 114 H Ionized Calcium (1.15 - 1.33 MMOL/L) 1.22 Instrument (Specimen Descript) Venous Chemistry Sodium (133 - 144 mmol/L) 133.0 Potassium (3.5 - 5.1 mmol/L) 4.6 Chloride (95 - 105 mmol/L) 103 Carbon Dioxide (21 - 32 mmol/L) 24 Anion Gap (4.0 - 15.0 GAP calc) 6.0 BUN (7 - 18 MG/DL) 30 H Creatinine (0.55 - 1.30 MG/DL) 1.76 H Glomerular Filtr Rate (>60 estGFR) 38 L Glucose (70 - 110 MG/DL) 171 H Calcium (8.5 - 10.1 MG/DL) 8.5 Total Bilirubin (0.00 - 1.00 MG/DL) 0.24 Direct Bilirubin (0.00 - 0.30 MG/DL) 0.10 Indirect Bilirubin (0.2 - 1.3 MG/DL) 0.14 L AST (15 - 37 Unit/L) 16 ALT (12 - 78 Unit/L) 27 Total Alk Phosphatase (45 - 117 Unit/L) 48 Total Protein (6.4 - 8.2 G/DL) 6.2 L Albumin (3.4 - 5.0 G/DL) 3.4 Albumin/Globulin Ratio (1.2 - 2.2 RATIO) 1.2 Specimen Appearance (1 NORMAL Index/DL) 1 REBEKAH L <2 MG Specimen Hemolysis (1 NORMAL Index/DL) 1 NORMAL <10 MG Serology SARS-CoV-2 Ag (Rapid) (Neg) Negative Active Meds + DC'd Last 24 Hrs Atorvastatin Calcium 20 MG BEDTIME PO (UNV) Duloxetine HCl 30 MG DAILY PO (UNV) Lisinopril 10 MG DAILY PO (UNV) Memantine 5 MG DAILY PO (UNV) Omeprazole 40 MG DAILY PO (UNV) Dextrose/Water 25 ML ASDIR PRN IV (UNV) Glucagon 1 MG ASDIR PRN IM (UNV) Glucose Polymer 15 GM ASDIR PRN PO (UNV) Insulin Human Lispro See Admin Criteria ASDIR PRN SUBQ (UNV) Sodium Polystyrene Sulfonate 15 GM NOW ONE PO (U NV) Albuterol Sulfate 2 PUFF RTQ4H PRN PRN INH (UNV) Lactulose 30 ML BID PRN PRN PO (UNV) Docusate Sodium 100 MG BID PO Mupirocin 1 APPLIC BID NASAL Pregabalin 75 MG BID PO Cefazolin Sodium 2 GM Q8H IV (DC) Sterile Water 20 ML Q8H IV (DC) Albuterol Sulfate 2.5 MG PACU ONCE PRN PRN INH ( DC) Fentanyl Citrate 25 MCG PACU Q5MIN PRN PRN IV (D C) Metoprolol Tartrate 2 MG PACU Q5MIN PRN PRN IV ( DC) Naloxone HCl 0.1 MG PACU ONCE PRN PRN IV (DC) Ondansetron HCl 4 MG PACU ONCE PRN PRN IV (DC) Parenteral Electrolytes 1,000 ML PACU IV (DC) Dexamethasone Sodium Phosphate 0 .STK-MED ONE .R OUTE (DC) Ketorolac Tromethamine 0 .STK-MED ONE .ROUTE (DC ) Ondansetron HCl 0 .STK-MED ONE .ROUTE (DC) Glycopyrrolate 0 .STK-MED ONE .ROUTE (DC) Neostigmine Methylsulfate 0 .STK-MED ONE .ROUTE (DC) Acetaminophen 1,000 MG Q8HR PO Albumin Human 250 ML .STK-MED ONE IV (DC) Vasopressin 0 .STK-MED ONE .ROUTE (DC) Calcium Chloride 0 .STK-MED ONE .ROUTE (DC) Rocuronium [place] 0 .STK-MED ONE .ROUTE (DC) Ephedrine Sulfate 0 .STK-MED ONE .ROUTE (DC) Bisacodyl 10 MG DAILY PRN PRN RECTAL Hydromorphone HCl 0.5 MG Q3H PRN PRN IV Lactated Ringer's 1,000 ML .[id number] IV Magnesium Hydroxide 30 ML DAILY PRN PRN PO Mupirocin 1 APPLIC ONCE ONE NASAL (DC) Ondansetron HCl 4 MG Q6H PRN PRN IV Oxycodone HCl 5 MG Q6H PRN PRN PO Oxycodone HCl 10 MG Q6H PRN PRN PO Oxycodone HCl 15 MG Q6H PRN PRN PO Temazepam 15 MG BEDTIME PRN PRN PO Lidocaine HCl 5 ML .STK-MED ONE IV (DC) Rocuronium [place] 0 .STK-MED ONE .ROUTE (DC) Propofol 20 ML .STK-MED ONE IV (DC) Acetaminophen 0 .STK-MED ONE .ROUTE (DC) Celecoxib 0 .STK-MED ONE .ROUTE (DC) Bupivacaine HCl/Epinephrine Bitart 0 .STK-MED ON E .ROUTE (DC) Tranexamic Acid 0 .STK-MED ONE .ROUTE (DC) Cefazolin Sodium 0 .STK-MED ONE .ROUTE (DC) Acetaminophen 1,000 MG ONCALL PO (CKD) Celecoxib 400 MG ONCALL PO (CKD) Pregabalin 150 MG ONCALL PO (CKD) Scopolamine 1 PATCH ONCALL TRANSDERM (CKD) Dexamethasone Sodium Phosphate 0 .STK-MED ONE .R OUTE (DC) Lidocaine HCl 5 ML .STK-MED ONE IV (DC) Midazolam HCl 0 .STK-MED ONE .ROUTE (DC) Ropivacaine 0 .STK-MED ONE .ROUTE (DC) Fentanyl Citrate 0 .STK-MED ONE .ROUTE (DC) Cefazolin Sodium 2 GM PREOP ASDIR IV (DC) Lactated Ringer's 1,000 ML PREOP IV Lidocaine HCl 0.1 ML PREOP I-DERMAL (CKD) Sterile Water 20 ML PREOP ASDIR IV (DC) Tranexamic Acid 1,000 MG PREOP ASDIR IV (CKD) Sodium Chloride 100 ML Pregabalin 75 MG PREOP ONCE PO (DC) 05/18 0700 05/17 2300 05/17 1500 Intake Total 500.00 Output Total Balance 500.00 Intake, IV 500.00 Patient 96.162 kg 96.2 kg Weight Weight Standing scale Measurement Method Home Medications: Medication Dose/Rte/Freq Days Qty Entered Last Max Daily Dose Reviewed ATORVASTATIN (LIPITOR) 20 MG PO BEDTIME 1 05/13/20 Strength: 20 MG TAB [address] (CYMBALTA) 30 MG PO DAILY 1 05/13/20 Strength: 30 MG CAP. 1128 1135 LACTULOSE (KRISTALOSE) 10 GM PO DAILY 05/13/20 05/13/20 Strength: 10 GRAM PACKET 1129 1135 LISINOPRIL (ZESTRIL) 10 MG PO DAILY 05/13/20 0 05/13/20 Strength: 10 MG TAB 1129 1135 MELATONIN 3 MG PO BEDTIME 05/13/20 05/13/20 Strength: 3 MG TAB 1129 1135 MEMANTINE (NAMENDA) 5 MG PO DAILY 05/13/2004/19 Strength: 5 MG TAB 1130 1135 OMEPRAZOLE ER (PriLOSEC) 40 MG PO DAILY 1 05/13/20 Strength: 40 MG CAP. 1130 1135 IBUPROFEN (MOTRIN) 800 MG PO 05/13/20 05/13/20 Strength: 800 MG TAB TID PRN PRN PAIN 1130 1135 [MAPAP] 500 MG PO 05/13/20 05/13/20 Strength: PRN PRN PAIN 1135 1135 ALBUTEROL 2 PUFF INH 05/17/20 (PROAIR HFA 90 MCG/ACT RTQ4H PRN PRN 0933 8.5 GM) DYSPNEA/WHEEZING Strength: 90 MCG INHALER oxyCODONE 1 TAB PO 40 05/17/20 HCL/ACETAMINOPHEN Q4H PRN PRN pain 1037 (PERCOCET 5/325 MG) Strength: 5 MG-325 MG TAB Current Hospital Medications: Anti-Infective Agents Sig/Chente Start time Last Medication Dose Route Stop Time Status Admin Cefazolin Sodium 2 GM Q8H 05/17 1800 DC 05/18 (ANCEF 1 GM) IV 05/18 0201 0104 Cefazolin Sodium 0 .STK-MED ONE 05/17 0951 DC (ANCEF 1 GM) .ROUTE Cefazolin Sodium 2 GM PREOP ASDIR 05/17 0500 DC (ANCEF 1 GM) IV 05/31 0501 Autonomic Drugs Sig/Chente Start time Last Medication Dose Route Stop Time Status Admin Albuterol Sulfate 2 PUFF RTQ4H PRN PRN 05/18 03 15 UNV (VENTOLIN HFA (NF)) INH 06/17 0316 Albuterol Sulfate 2.5 MG PACU ONCE PRN PRN 04/20 0 1615 DC (PROVENTIL) INH 05/17 2115 Glycopyrrolate 0 .STK-MED ONE 05/17 1403 DC (ROBINUL IJ) .ROUTE Neostigmine 0 .STK-MED ONE 05/17 1403 DC Methylsulfate .ROUTE (NEOSTIGMINE METHYLSULFATE) Rocuronium [place] 0 .STK-MED ONE 05/17 1259 DC (ZEMURON) .ROUTE Ephedrine Sulfate 0 .STK-MED ONE 05/17 1216 DC (ePHEDrine sulfate) .ROUTE Rocuronium [place] 0 .STK-MED ONE 05/17 1042 DC (ZEMURON) .ROUTE Blood Derivatives Sig/Chente Start time Last Medication Dose Route Stop Time Status Admin Albumin Human 250 ML .STK-MED ONE 05/17 1321 DC (ALBUMINAR-5) IV Blood Formation,Coagulation Sig/Chente Start time Last Medication Dose Route Stop Time Status Admin Tranexamic Acid 0 .STK-MED ONE 05/17 1032 DC (CYKLOKAPRON) .ROUTE Tranexamic Acid 1,000 MG PREOP ASDIR 05/17 0500 CKD (CYKLOKAPRON) IV 06/16 0501 Sodium Chloride 100 ML (NORMAL SALINE 100 ML) Cardiovascular Drugs Sig/Chente Start time Last Medication Dose Route Stop Time Status Admin Atorvastatin Calcium 20 MG BEDTIME 05/18 2100 U NV (LIPITOR) PO 06/17 2100 Lisinopril 10 MG DAILY 05/18 0900 UNV (PRINIVIL) PO 06/17 09 Metoprolol Tartrate 2 MG PACU Q5MIN PRN PRN 1615 DC (LOPRESSOR) IV 05/17 211 Central Nervous System Agents Sig/Chente Start time Last Medication Dose Route Stop Time Status Admin Duloxetine HCl 30 MG DAILY 05/18 0900 UNV (CYMBALTA) PO 06/17 0901 Memantine 5 MG DAILY 05/18 0900 UNV (NAMENDA (NF)) PO 06/17 0901 Fentanyl Citrate 25 MCG PACU Q5MIN PRN PRN 04/20 0 1615 DC (SUBLIMAZE) IV 05/17 2114 Naloxone HCl 0.1 MG PACU ONCE PRN PRN 05/17 161 5 DC (NARCAN) IV 05/17 2014 Ketorolac 0 .STK-MED ONE 05/17 1406 DC Tromethamine .ROUTE (TORADOL) Acetaminophen 1,000 MG Q8HR 05/17 1400 AC 05/17 (TYLENOL EXTRA PO 06/16 1401 2129 STRENGTH) Hydromorphone HCl 0.5 MG Q3H PRN PRN 05/17 1045 AC 05/17 (DILAUDID) IV 06/16 1046 2213 Oxycodone HCl 5 MG Q6H PRN PRN 05/17 1045 AC (OXYIR 5MG) PO 06/16 1046 Oxycodone HCl 10 MG Q6H PRN PRN 05/17 1045 AC 0 05/18 (OXYIR 5MG) PO 06/16 1046 0100 Oxycodone HCl 15 MG Q6H PRN PRN 05/17 1045 AC (OXYIR 5MG) PO 06/16 1046 Temazepam 15 MG BEDTIME PRN PRN 05/17 1045 AC (RESTORIL) PO 06/16 1046 Propofol 20 ML .STK-MED ONE 05/17 1041 DC (DIPRIVAN) IV Acetaminophen 0 .STK-MED ONE 05/17 1039 DC (TYLENOL EXTRA .ROUTE STRENGTH) Celecoxib 0 .STK-MED ONE 05/17 1039 DC (CeleBREX) .ROUTE Acetaminophen 1,000 MG ONCALL 05/17 0945 CKD (TYLENOL EXTRA PO 06/16 0946 STRENGTH) Celecoxib 400 MG ONCALL 05/17 0945 CKD (CeleBREX) PO 06/16 0946 Midazolam HCl 0 .STK-MED ONE 05/17 0916 DC (VERSED) .ROUTE Fentanyl Citrate 0 .STK-MED ONE 05/17 0915 DC (SUBLIMAZE) .ROUTE Electrolytic, Caloric, And Joe Sig/Chente Start time Last Medication Dose Route Stop Time Status Admin Dextrose/Water 25 ML ASDIR PRN 05/18 0330 UNV (DEXTROSE 50%-WATER) IV 06/17 0331 Glucose Polymer 15 GM ASDIR PRN 05/18 0330 UNV (GLUTOSE) PO 06/17 0331 Sodium Polystyrene 15 GM NOW ONE 05/18 0330 UNV Sulfonate PO 05/18 0331 (KAYEXALATE) Lactulose 30 ML BID PRN PRN 05/18 0315 UNV (CHRONULAC 20 GM/30 PO 06/17 0316 ML) Parenteral 1,000 ML PACU 05/17 1615 DC Electrolytes IV 05/17 211 (PLASMA-LYTE A ) Calcium Chloride 0 .STK-MED ONE 05/17 1316 DC (CALCIUM CHLORIDE .ROUTE 10% SYRINGE) Lactated Ringer's 1,000 ML .[id number] 05/17 1045 AC 05/17 (LACTATED RINGERS) IV 05/18 1046 2137 Lactated Ringer's 1,000 ML PREOP 05/17 0500 AC (LACTATED RINGERS) IV 06/16 0501 Eye, Ear, Nose And Throat (Een Sig/Chente Start time Last Medication Dose Route Stop Time Status Admin Dexamethasone Sodium 0 .STK-MED ONE 05/17 1406 DC Phosphate .ROUTE (DECADRON 4MG/ML) Gastrointestinal Drugs Sig/Chente Start time Last Medication Dose Route Stop Time Status Admin Omeprazole 40 MG DAILY 05/18 0900 UNV (PriLOSEC (NF)) PO 06/17 0901 Docusate Sodium 100 MG BID 05/17 2100 AC 05/17 (COLACE 100 MG CAP) PO 06/16 2101 2129 Ondansetron HCl 4 MG PACU ONCE PRN PRN 05/17 16 15 DC (ZOFRAN) IV 05/17 2115 Ondansetron HCl 0 .STK-MED ONE 05/17 1406 DC (ZOFRAN) .ROUTE Bisacodyl 10 MG DAILY PRN PRN 05/17 1045 AC (DULCOLAX) RECTAL 06/16 1046 Magnesium Hydroxide 30 ML DAILY PRN PRN 05/17 1 045 AC (MILK OF MAGNESIA) PO 06/16 1046 Ondansetron HCl 4 MG Q6H PRN PRN 05/17 1045 AC (ZOFRAN) IV 06/16 1046 Scopolamine 1 PATCH ONCALL 05/17 0945 CKD (Scopolamine) TRANSDERM 06/16 0946 Hormones And Synthetic Substit Sig/Chente Start time Last Medication Dose Route Stop Time Status Admin Glucagon 1 MG ASDIR PRN 05/18 0330 UNV (GLUCAGON) IM 06/17 0331 Insulin Human Lispro See Dose ASDIR PRN 05/18 0 330 UNV (HUMALOG) Insts (1) SUBQ 06/17 0331 Vasopressin 0 .STK-MED ONE 05/17 1317 DC (VASOPRESSIN) .ROUTE Dexamethasone Sodium 0 .STK-MED ONE 05/17 0916 DC Phosphate .ROUTE (DECADRON PF) Local Anesthetics (Parenteral) Sig/Chente Start time Last Medication Dose Route Stop Time Status Admin Lidocaine HCl 5 ML .STK-MED ONE 05/17 1042 DC (XYLOCAINE 1% 5ML) IV Bupivacaine HCl/ 0 .STK-MED ONE 05/17 1033 DC Epinephrine Bitart .ROUTE (SENSORCAINE-EPI 0.5%) Lidocaine HCl 5 ML .STK-MED ONE 05/17 0916 DC (XYLOCAINE 1% 5ML) IV Ropivacaine 0 .STK-MED ONE 05/17 0916 DC (NAROPIN 0.5%) .ROUTE Lidocaine HCl 0.1 ML PREOP 05/17 0500 CKD (XYLOCAINE 1% MDV I-DERMAL 06/16 0501 20ML) Miscellaneous Therapeutic Agen Sig/Chente Start time Last Medication Dose Route Stop Time Status Admin Pregabalin 75 MG BID 05/17 2100 AC 05/17 (LYRICA) PO 05/19 0901 1115 Pregabalin 150 MG ONCALL 05/17 0945 CKD (LYRICA) PO 06/16 0946 Pregabalin 75 MG PREOP ONCE 05/13 1200 DC (LYRICA) PO 05/17 1900 Pharmaceutical Aids Sig/Chente Start time Last Medication Dose Route Stop Time Status Admin Sterile Water 20 ML Q8H 05/17 1800 DC 05/18 (STERILE WATER) IV 05/18 0201 0104 Sterile Water 20 ML PREOP ASDIR 05/17 0500 DC (STERILE WATER) IV 06/16 0501 Skin And Mucous Membrane Agent Sig/Chente Start time Last Medication Dose Route Stop Time Status Admin Mupirocin 1 APPLIC BID 05/17 2100 AC (BACTROBAN) NASAL 05/21 2101 Mupirocin 1 APPLIC ONCE ONE 05/17 1045 DC (BACTROBAN) NASAL 05/17 1046 Dose Instructions: (1)Insulin Human Lispro (HUMALOG): See Admin Criteria Allergies: Coded Allergies: No Known Allergies (05/13/20) Brief Consult Note Physical Exam Vitals: Last Documented: Result Date Time Pulse Ox 96 05/18 121 B/P 98/66 05/18 121 B/P Mean 76.3 05/18 121 O2 Delivery Room air 05/18 121 Temp 36.5 05/18 012 Pulse 85 05/18 012 Resp 16 05/18 121 O2 Flow Rate 0 05/17 1733 General appearance: awake Cardiovascular: regular rate rhythm Respiratory: decreased breath sounds Abdomen: non-tender Neuro/[employer] PA[employer] MIXER: no sensory deficits Free Text A P: S/p left shoulder arthroplasty Continue pain control Supportive care Follow-up with orthopedic Diabetes mellitus Continue home medication Insulin sliding scale LEA Avoid nephrotoxins Monitor renal functions Hyperkalemia Kayexalate Recheck potassium Low potassium diet Hypertension Optimize blood pressure control Depression and dementia Continue home medication DVT and GI prophylaxis Advanced directive discussed Medication reviewed and reconciled Electronically Signed by Maty Wolf MD on 1 at 0446 RPT #:[id number] END OF REPORT 2020-05-17 17:57:00-00:00 [id number] [place] [address] 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 Left shoulder posttraumatic osteoarthrosis. 2. Left humeral head nonunion fracture dislocati on. 3. Left long head biceps chronic tearing. POSTOPERATIVE DIAGNOSES: 1. Left shoulder posttraumatic osteoarthrosis. 2. Left humeral head nonunion fracture dislocati on. 3. Left long head biceps chronic tearing. PROCEDURES: 1. Left shoulder reverse total shoulder arthropl asty. 2. Left shoulder open biceps tenodesis. ATTENDING SURGEON: Kate Valles Jr, MD ENVIRONMENTAL STUDIES DEPARTMENT CHAIR: Christian Jimenez MD, whose assistance was critical for the exposure of the joint, expert retractor placement, rosy l head positioning, glenoid preparation and implant posi tioning, trialing and reduction of trial implants as well as final implants and timely closure. ANESTHESIA: General with an interscalene block. ESTIMATED BLOOD LOSS: 600 mL. COMPLICATIONS: None. SPECIMENS: Humeral head bone. DRAINS: None. IMPLANTS: Anytime DD 29 mm full wedge basepl ate with 3 peripheral locking screws and a 6.5 x 40 mm post, 39 mm centered gl enosphere, Revive stem, 13 mm proximal interbody, 11 x 140 mm stem, +0 centere d tray and +6 mm poly. FINDINGS: Passive range of motion extremely anky losed due to chronic humeral head fracture dislocation. INTRAOPERATIVE FINDINGS: The long head biceps nance d split-thickness tearing and medial subluxation with the lesser tuberosity. T here was a lesser tuberosity PATIENT NAME: SPRING COOPER malunion. Humeral head was posteriorly dislocate d and partially united with extensive arthrosis and post erior wear of the glenoid. The superior tilt of the glenoid and some retroversion required correctio n using a full-wedge implant. The lesser and greater tuberosities requ ired osteotomy and peel of the rotator cuff tendons, which were completely irreparable, torn, and not available for tethering to the implant. INDICATIONS: The patient is a 69-year-old male with a history of a ground level fall more than 16 months ago. He did not seek medical treatment or at the very least was not a candidate fo r surgery. He presented to me within the past month with end-stage arthrosis in the setting of malunited fracture dislocation. A CT scan and diagnostic workups were completed and t he surgery was recommended, where he elected to proceed. DESCRIPTION OF PROCEDURE: The patient and operat yudi site were preoperatively identified. He was positioned supine for inducti on of general anesthesia. He was then placed into a careful semi-beac h chair position using the beach chair positioner. Head and neck were held in neutral a lignment throughout the procedure. Left upper extremity was then prepped and draped in the usual sterile fashion with occlusive Ioban draping. Tr anexamic acid 1 gram was administered. Ancef 2 grams were administered. A timeout was held. The preoperative motion was very limited. Using a Trimano arm moser, the shoulder was placed at this side. A standard 10 to 11 cm deltopectoral interval incision was carried out just lateral to the cor acoid process and the subcutaneous layers were divided and bleeding wa s controlled. The rotator interval was encountered. The cephalic vein was coagulated at its distal aspect. There was extensive bursitis and adhesions within the subdeltoid space in the setting of chronic deformity. The deltoid interval was developed and a brown retractor was then positioned. The deltope ctoral interval approach was then finalized by releasing the clavipectoral fa scia, ligating the circumflex vessels, and identifying the biceps tendon. It w as subluxated and torn with tenosynovitis. The pectorali s major was released at the superior centimeter and a half of its insertion and the biceps t endon was then tenodesed to the tendon of the pectoralis major. A subscapularis peel was performed, but there wa s a difficult access to the glenohumeral joint and the shoulder coul d not be anteriorly dislocated. Lesser tuberosity osteotomy was performed for further e xposure. I eventually had to osteotomize through the miles nited greater tuberosity and humeral head fragments, which also required high level of difficulty to excise and remove the locked posterior dislocated humeral head. The superior and posterior elements of the rotator cuff were unusable, retracted and unable to be mobilized further. I proceeded with glenoid preparation and placed a Ridgeley retractor. The anterior and inferior capsule around the shoulde r was excised and the biceps tendon was also divided. Using the preoperative templating with 3-dimensional software, a guide pin was th en positioned using the full wedge trial. The wedge reamer was then used, follow ed by central post-drill hole, which was found to be in very good bone. I then inserted the glenoid b aseplate with full wedge and had very good purchase with a 40 mm post. Periph eral locking and nonlocking screws were placed. The glenosphere was then sec urely positioned and screwed into position. PATIENT NAME: SPRING COOPER Attention was returned to the proximal humerus. The previous osteotomy was freshened which released mos t of the bone down to the calcar, which was the site of the previous fracture and was totally unusabl e. Sounders were used up to a size #11, size dilators were used up to a size # 13, but the 13 mm trial would not pass. I used #11 at adequate length until I found very good diaphyseal purchase with the trial. The trial tray and poly ethylene components were then placed and the shoulder was linked with moderate difficulty attributable to the chronic proximal migration of the humeral di aphysis from the deltoid tension. Strap muscle tension was felt to be sat isfactory, and the shoulder had no impingement up to 140 degrees of forward elevation, 80 degrees of external rotation, internal rotation to the abdo men and extension, which was fairly tight beyond approximately 20 degrees. Th e trials were removed. An Irrisept lavage and copious Pulsavac was then performed as well as debridement of nonviable tissue around the glenohumeral join t and deltoids. Bleeding was noted to be well controlled at this time. Final implants were opened, assembled securely o n the back table and then firmly impacted into the proximal humerus. Final reduction was performed without incident and had similar stability christianne red to the trialing. Another Pulsavac lavage was performed. A layered closure was achieved with #2 Ethibond suture in the deltopectoral int erval, 2-0 Monocryl, and skin nani. Xeroform, Aquacel dressing, and a slingshot brac e was then applied. The patient was awakened and taken to re covery room in satisfactory condition. 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
[2022-10-06 20:55] LABS: Specific Gravity 1.022 (1.005-1.030); Urine Bacteria <20 /HPF (<20); Urine Bilirubin NEGATIVE (Negative); Urine Blood 1+ (Negative); Urine Clarity Extremely Turbid (Clear); Urine Color Yellow (Yellow); Urine Crystals Unidentified Few /HPF (None Seen); Urine Glucose NEGATIVE (Negative); Urine Mucus Slight /HPF (None Seen); Urine Protein 2+ (Negative); Urine Urobilinogen Normal (Normal); Urine WBC Clump Occasional /HPF (None Seen); Urine pH 5.5 (5.0-7.0)
[2022-10-06 20:59] LABS: Absolute Lymphocytes (CBC) 0.8 K/uL (0.7-4.9); Hematocrit 30.5 % (39.6-49.0); Lymphocytes % 4.9 % (15.3-44.8); MCV 92.6 fL (80-100); MPV 8.6 fL (7.6-11.3); Platelets 169 thou/uL (152-406)
[2022-10-06 21:00] LABS: Barbiturates NEGATIVE (NEGATIVE); Benzodiazepines NEGATIVE (NEGATIVE); Cocaine NEGATIVE (NEGATIVE); METHAMPHETAM NEGATIVE (NEGATIVE); Methadone NEGATIVE (NEGATIVE); Opiates NEGATIVE (NEGATIVE); Phencyclidine NEGATIVE (NEGATIVE); THC Cannibis NEGATIVE (NEGATIVE)
[2022-10-06 21:06] LABS: BUN Blood Urea Nitrogen 33 mg/dL (7-18); Bicarbonate 24 mEq/L (21-32); Glomerular Filtration Rate 25 ml/min (=/>90); Glucose Level 140 mg/dL (74-106); Potassium 5.1 mEq/L (3.5-5.1); Sodium Level 130 mEq/L (136-145)
[2022-10-06 21:07] LABS: ALT/SGPT 58 U/L (16-61); AST/SGOT 44 U/L (15-37); Albumin 3.3 g/dL (3.4-5.0); Alkaline Phosphatase 64 U/L (45-117); Bilirubin Total 0.9 mg/dL (0.2-1.0); Creatine Phosphokinase 963 U/L (39-308); Magnesium 2.1 mg/dL (1.6-2.4); NT PRO-BNP 900 pg/mL (<125); Protein, Total 6.8 g/dL (6.4-8.2); Troponin High Sensitivity 21.5 pg/mL (<58.9)
[2022-10-06] MEDS ORDERED: CEFTRIAXONE 1000 MG/VIAL ONE (21:52)
[2022-10-06] MEDS ORDERED: NA CHLORIDE 0.9% 1,000 ML ONE (21:52)
--- NOTE | 2022-10-06 22:21 | ER ---
Nurse's Notes [facility] Name: Mega Farnsworth Age: 71 yrs Sex: Male : 1950 Arrival Date: 10/06/2022 Time: 19:47 Bed 6 Private MD: Diagnosis: Altered mental status;Generalized weakness;Fall from standing;Left hip fracture, closed, initial encounter;Acute kidney injury;Urinary tract infection Presentation: 10/06 19:55 Chief complaint: EMS states: called out for fall. pt had a fall around 10 AM this as6 morning and had been on the floor all day. someone came to bring pt dinner and found pt on floor. friend attempted to get pt off floor but dropped pt several times and called EMS for help. Coronavirus screen: At this time, the client does not indicate any symptoms associated with coronavirus-19. Ebola Screen: No symptoms or risks identified at this time. Initial Sepsis Screen: Does the patient meet any 2 criteria? No. Patient's initial sepsis screen is negative. Does the patient have a suspected source of infection? No. Patient's initial sepsis screen is negative. Risk Assessment: Do you want to hurt yourself or someone else? Patient reports no desire to harm self or others. Onset of symptoms was October 06, 2022. 19:55 Acuity: DOMENICO 2 as6 19:55 Method Of Arrival: EMS: [facility] as6 Historical: - Allergies: 19:54 NKDA; as6 - PMHx: 19:54 Anxiety; Drug and Alcohol abuse; Hypertension; CVA; Ulcers; COPD; as6 - Immunization history:: Adult Immunizations unknown. - Social history:: Smoking status: Patient reports the use of cigarette tobacco products. Screenin:59 [facility] ED Fall Risk Assessment (Adult) Score/Fall Risk Level 3 or more points = High as6 Risk. Abuse screen: Denies threats or abuse. Denies injuries from another. Nutritional screening: No deficits noted. Tuberculosis screening: No symptoms or risk factors identified. Assessment: 19:58 General: Appears unkempt, Behavior is calm, cooperative, Smells of urine. Pain: as6 Complains of pain in right leg. Neuro: Level of Consciousness is awake, alert, obeys commands, confused, Oriented to person, place. Cardiovascular: Heart tones S1 S2 present Capillary refill < 3 seconds Patient's skin is warm and dry. Respiratory: Respiratory effort is even, unlabored. 10/07 00:21 General: attempted to call report . jw7 Vital Signs: 10/06 19:55 BP 137 / 98; Pulse 103; Resp 19 S; Temp 97.6(O); Pulse Ox 100% on R/A; Weight 74.84 kg as6 (R); Height 5 ft. 8 in. (R); 21:00 BP 127 / 89; Pulse 95; Resp 22 S; Pulse Ox 100% on R/A; jw7 22:00 BP 134 / 91; Pulse 97; Resp 22 S; Pulse Ox 100% on R/A; jw7 22:59 BP 135 / 75; Pulse 90; Resp 20 S; Pulse Ox 100% on R/A; jw7 10/07 00:21 BP 140 / 86; Pulse 97; Resp 18 S; Pulse Ox 100% on R/A; jw7 00:38 BP 123 / 79; Pulse 91; Resp 18; Temp 98; Pulse Ox 99% on R/A; rv 10/06 19:55 Body Mass Index 25.09 (74.84 kg, 172.72 cm) as6 ED Course: 10/06 19:54 Patient arrived in ED. as6 19:57 Triage completed. as6 19:57 Cathi Aguirre MD is Attending Physician. sd2 19:57 Arm band placed on. as6 19:58 James Kuhn, RN is Primary Nurse. as6 19:59 Placed in gown. Bed in low position. Call light in reach. Side rails up X2. Client as6 placed on continuous cardiac and pulse oximetry monitoring. NIBP monitoring applied. Warm blanket given. 20:31 Inserted saline lock: 20 gauge in left forearm, using aseptic technique. Blood as6 collected. 21:40 Ethanol Sent. as6 21:40 Blood Culture Adult (2) Sent. as6 22:04 Head C Spine Cap Wo Con In Process Unspecified. EDMS 22:07 Hip Left 2 View In Process Unspecified. EDMS 22:08 XRAY Chest (1 view) In Process Unspecified. EDMS 22:08 XRAY Pelvis In Process Unspecified. EDMS 22:19 Gianfranco Will MD is Hospitalizing Provider. sd2 10/07 00:10 Jerome cath inserted, using sterile technique, 16 Fr., by md, balloon inflated, to rv gravity drainage. 00:19 No provider procedures requiring assistance completed. Patient admitted, IV remains in jw7 place. 00:38 Provided Education on: SURGERY. rv Administered Medications: 10/06 21:47 Drug: NS 0.9% IV 1000 ml Route: IV; Rate: 1 bolus; Site: left forearm; as6 23:00 Follow up: Response: No adverse reaction; IV Status: Completed infusion; IV Intake: jw7 1000ml 21:47 Drug: Rocephin IV 1 grams Route: IV; Rate: bolus; Site: left forearm; as6 23:00 Follow up: Response: No adverse reaction; IV Status: Completed infusion; IV Intake: 11htfb0 Medication: 19:59 VIS not applicable for this client. as6 Intake: 23:00 IV: 50ml; Total: 50ml. jw7 23:00 IV: 1000ml; Total: 1050ml. [facility] Outcome: 22:20 Decision to Hospitalize by Provider. sd2 10/07 00:19 Condition: stable jw Instructed on the need for admit. 00:38 Admitted to Med/surg accompanied by nurse, via stretcher, room 232, with chart, Report rv called to YAHAIRA WHITESIDE 00:49 Patient left the ED. [facility] Signatures: Dispatcher [employer] EDMS Hung Tripp, RN RN rv James Kuhn RN RN as6 Elena Lane RN RN jw7 Cathi Aguirre MD MD sd2
--- NOTE | 2022-10-06 22:21 | EDPHYS ---
Physician Documentation [facility] Name: Mega Farnsworth Age: 71 yrs Sex: Male : 1950 Arrival Date: 10/06/2022 Time: 19:47 Bed 6 Private MD: ED Physician Cathi Aguirre HPI: 10/06 20:43 This 71 yrs old Male presents to ER via EMS with complaints of fall. sd2 20:43 71 yo M presents via EMS with CC of fall at home around 10AM this morning. Reports his sd2 friend came over to bring him breakfast and then was concerned he may have been having a stroke and tried to get him out of the bed but dropped him on the ground. Reports his friend repeatedly throughout the day kept trying to get him up but dropping him again. The patient does live alone and normally is ambulatory on his own per his report. Denies being on any medications currently. He did appear disheveled and dirty at time of EMS's arrival. Pt complains of pain all over due to his fall. Denies fever or illness prior to the fall today.. Historical: - Allergies: 19:54 NKDA; as6 - PMHx: 19:54 Anxiety; Drug and Alcohol abuse; Hypertension; CVA; Ulcers; COPD; as6 - Immunization history:: Adult Immunizations unknown. - Social history:: Smoking status: Patient reports the use of cigarette tobacco products. ROS: 20:43 Constitutional: Negative for fever, chills, and weight loss, Eyes: Negative for injury, sd2 pain, redness, and discharge, Cardiovascular: Negative for chest pain, palpitations, and edema, Respiratory: Negative for shortness of breath, cough, wheezing. Abdomen/GI: Negative for abdominal pain, nausea, vomiting, diarrhea. Back: Positive for injury and pain, MS/Extremity: Negative for injury and deformity, Skin: Negative for injury, rash, and discoloration, Neuro: Negative for headache, numbness and tingling. Exam: 20:43 Constitutional: This is a well developed, well nourished patient who is awake, alert, sd2 and in no acute distress. Head/Face: Normocephalic, atraumatic. Eyes: EOMI, normal conjunctiva bilaterally, yellow discharge and matting noted to bilateral eyes Chest/axilla: Normal chest wall appearance and motion. Nontender with no deformity. Cardiovascular: Regular rate and rhythm with a normal S1 and S2. No gallops, murmurs, or rubs. 2+ distal pulses. Respiratory: Lungs have equal breath sounds bilaterally, clear to auscultation and percussion. No rales, rhonchi or wheezes noted. No increased work of breathing, no retractions or nasal flaring. Abdomen/GI: Soft, non-tender, with normal bowel sounds. No guarding or rebound. No evidence of tenderness throughout. Skin: Warm, dry with normal turgor. Normal color with no rashes, no lesions, and no evidence of cellulitis. MS/ Extremity: Pulses equal, no cyanosis. Neurovascular intact. Pain to bilateral knees with ROM. Neuro: Awake and alert, GCS 15, oriented to person, place, time, and situation. Cranial nerves II-XII grossly intact. Motor strength 5/5 in all extremities. Sensory grossly intact. Psych: Awake, alert, with orientation to person, place and time. Behavior, mood, and affect are within normal limits. Pt appears to be having hallucinations while in room asking us to take an ashtray out of his hand. 22:53 ECG was reviewed by the Attending Physician. NSR, rate 99, no STEMI criteria, RBBB sd2 present Vital Signs: 19:55 BP 137 / 98; Pulse 103; Resp 19 S; Temp 97.6(O); Pulse Ox 100% on R/A; Weight 74.84 kg as6 (R); Height 5 ft. 8 in. (R); 21:00 BP 127 / 89; Pulse 95; Resp 22 S; Pulse Ox 100% on R/A; jw7 22:00 BP 134 / 91; Pulse 97; Resp 22 S; Pulse Ox 100% on R/A; jw7 22:59 BP 135 / 75; Pulse 90; Resp 20 S; Pulse Ox 100% on R/A; jw7 10/07 00:21 BP 140 / 86; Pulse 97; Resp 18 S; Pulse Ox 100% on R/A; jw7 00:38 BP 123 / 79; Pulse 91; Resp 18; Temp 98; Pulse Ox 99% on R/A; rv 10/06 19:55 Body Mass Index 25.09 (74.84 kg, 172.72 cm) as6 MDM: 10/06 19:58 Patient medically screened. sd2 20:43 Differential diagnosis: Differential diagnosis includes but is not limited to: sd2 Fracture, contusion, abrasion, closed head injury, pneumothorax, intra-abdominal injury, intracranial hemorrhage, spinal injury among others. Data reviewed: vital signs, nurses notes, EMS record, lab test result(s), EKG, radiologic studies. Care significantly affected by the following chronic conditions: Hypertension, CVA. 22:17 Consideration of Admission/Observation Patient was admitted/placed on observation. sd2 Management of patient was discussed with the following: Hospitalist: Palmer Corbett NP. I considered the following discharge prescriptions or medication management in the emergency department Medications were administered in the Emergency Department. See MAR. Independent interpretation of the following test(s) in the Emergency Department X-Ray: My interpretation is L hip X-ray with fracture. Historians other than the Patient: EMS: provides initial report. Counseling: I had a detailed discussion with the patient and/or guardian regarding the historical points, exam findings, and any diagnostic results supporting the discharge/admit diagnosis, lab results, radiology results, the need for further work-up and treatment in the hospital. ED course: Labs reviewed with UTI and LEA as well as elevated CK. IVFs being given along with cultures sent and IV antibiotics given. CT currently pending but patient will need admission for symptoms as well as left hip fracture seen on XR. . 10/06 20:00 Order name: CBC with Diff; Complete Time: 21:16 2 10/06 20:00 Order name: CMP; Complete Time: 21:16 10/06 20:00 Order name: Magnesium; Complete Time: 21:16 10/06 20:00 Order name: Troponin High Sensitivity; Complete Time: 21:16 10/06 20:00 Order name: CK; Complete Time: 21:16 10/06 20:00 Order name: BNP; Complete Time: 21:16 10/06 20:00 Order name: AMMONIA; Complete Time: 21:16 10/06 20:00 Order name: Urinalysis w/ reflexes; Complete Time: 21:16 sd2 10/06 20:00 Order name: Urine Drug Screen; Complete Time: 21:16 2 10/06 20:00 Order name: Salicylate; Complete Time: 21:16 sd2 10/06 20:00 Order name: Acetaminophen; Complete Time: 21:16 sd2 10/06 21:07 Order name: Urine Culture EDLA 10/06 21:17 Order name: Blood Culture Adult (2) sd2 10/06 21:17 Order name: Ethanol; Complete Time: 22:11 sd2 10/06 23:31 Order name: Procalcitonin la1 10/06 20:00 Order name: XRAY Chest (1 view); Complete Time: 23:13 sd2 10/06 20:00 Order name: XRAY Pelvis; Complete Time: 23:13 sd2 10/06 22:04 Order name: Head C Spine Cap Wo Con; Complete Time: 22:57 EDMS 10/06 22:07 Order name: Hip Left 2 View; Complete Time: 23:13 EDMS 10/06 20:00 Order name: EKG - Nurse/Tech; Complete Time: 20:31 sd2 10/06 23:31 Order name: Jerome; Complete Time: 23:48 la1 Administered Medications: 21:47 Drug: NS 0.9% IV 1000 ml Route: IV; Rate: 1 bolus; Site: left forearm; as6 23:00 Follow up: Response: No adverse reaction; IV Status: Completed infusion; IV Intake: jw7 1000ml 21:47 Drug: Rocephin IV 1 grams Route: IV; Rate: bolus; Site: left forearm; as6 23:00 Follow up: Response: No adverse reaction; IV Status: Completed infusion; IV Intake: [id number] Disposition Summary: 10/06/22 22:20 Hospitalization Ordered Hospitalization Status: Inpatient Admission sd2 Provider: Gianfranco Will Location: Telemetry/MedSur (Inpatient) sd2 Condition: Stable sd2 Problem: new sd2 Symptoms: have improved sd2 Bed/Room [facility]: [facility] Room Assignment: 232(10/07/22 00:08) cg Diagnosis - Altered mental status sd2 - Generalized weakness sd2 - Fall from standing sd2 - Left hip fracture, closed, initial encounter sd2 - Acute kidney injury sd2 - Urinary tract infection sd2 Forms: - Medication Reconciliation Form sd2 - SBAR form sd2 - Leadership Thank You Letter sd2 Signatures: Dispatcher [employer] EDPalmer Merlos FNP-C GAS OPERATIONS ANALYST-Cla1 Bhavna Oakes, RN RN cg James Kuhn RN RN as6 Cathi Aguirre MD MD sd2 Elena Lane RN jw7 Corrections: (The following items were deleted from the chart) 22:04 20:00 Head C Spine CAP W Con+CT.RAD.BRZ ordered. EDMS EDMS 10/07 00:08 10/06 22:20 evelin villareal
--- NOTE | 2022-10-06 22:46 | RAD REPORT ---
EXAM DESCRIPTION: CT - Head C Spine Cap Wo Con - 10/06/2022 10:04 pm CLINICAL HISTORY: TRAUMA COMPARISON: Head C Spine Cap Wo Con dated 01/19/2019; Head C Spine Mpr Wo Con dated 01/01/2021 TECHNIQUE: Head and cervical spine CT images were obtained without IV contrast. Chest, abdomen, and pelvis CT images were obtained also without IV contrast. Multiplanar reformats were generated and rev iewed. All CT scans are performed using dose optimization technique as appropriate and may include automated exposure control or mA/KV adjustment according to patient size. FINDINGS: CT HEAD: No intracranial hemorrhage, mass effect, or edema. No evidence of acute territorial infarct. Posterio r left parietal small region of encephalomalacia, and asymmetric left posterior predominant deep whit e matter and periventricular hypodensity are stable. The suggest combined sequelae of remote ischemia and chronic small vessel ischemic changes. No midline shift or abnormal fluid collection. The ventri cles are stable in caliber with mild to moderate diffuse parenchymal volume loss. Basal cisterns are patent. Mastoid aircells are well aerated. Small mucous retention cysts in the maxillary sinuses. No acute calvarial fractures. CT CERVICAL SPINE: No acute cervical spine fracture or subluxation. Vertebral body heights are well maintained. Facet humera ints are normal in alignment. No hyperattenuating canal hematoma. Prevertebral and paraspinous soft t issues are unremarkable. Mild scattered degenerative changes. CT CHEST: No pneumothorax, pulmonary contusion or pleural fluid collection. No mediastinal hematoma and the aor ta and pulmonary arteries are unremarkable. No chest will mass or abnormal axillary finding. No displ aced rib fracture or other significant bony finding. CT ABDOMEN/ PELVIS: No evidence of traumatic injury to solid abdominal viscera. Gallbladder and biliary tree are unremark able. No bowel injury or significant finding. Diffuse hepatic parenchymal hypoattenuation, suggesting steatosis. No free air, free fluid or abnormal fat stranding. No urinary bladder abnormality. Comminuted and displaced left femoral intertrochanteric fracture, with fragments involving the greate r and lesser trochanters. Subtle endplate compression deformities notably along superior endplate of L2 and inferior endplate of L4, of indeterminate age. Few healing right rib fractures with callus for mation, likely subacute. IMPRESSION: Left femoral comminuted intertrochanteric fracture. No other acute solid organ traumatic findings. Subtle lumbar endplate compression deformities and healing right rib fractures are likely not acute.
--- NOTE | 2022-10-06 23:07 | RAD REPORT ---
EXAM DESCRIPTION: RADChest Single View10/06/2022 10:10 pm CLINICAL HISTORY: BLUNT CHEST TRAUMA COMPARISON: Chest Single View dated 01/04/2021; Chest Single View dated 01/01/2021; Chest Single Vie w dated 02/22/2019; Chest Single View dated 01/29/2019 TECHNIQUE: Portable AP view of the chest. FINDINGS: The lungs are clear.Few calcified pleural plaque. No pneumothorax or effusion. The cardiom ediastinal contours are unremarkable. IMPRESSION: No acute cardiopulmonary process.
--- NOTE | 2022-10-06 23:08 | RAD REPORT ---
EXAM DESCRIPTION: RAD - Pelvis - 10/06/2022 10:11 pm CLINICAL HISTORY: BLUNT TRAUMA COMPARISON: Pelvis dated 01/19/2019 TECHNIQUE: Single AP view of the pelvis. FINDINGS: Comminuted and impacted left femoral intertrochanteric fracture. Left periarticular soft t issue swelling. The visualized pelvic ring is intact. No suspicious osseous lesions. Visualized aspec ts of the abdomen and soft tissues are unremarkable. IMPRESSION: Comminuted and impacted left femoral intertrochanteric fracture.
--- NOTE | 2022-10-06 23:11 | RAD REPORT ---
EXAM DESCRIPTION: RAD - Hip Left 2 View - 10/06/2022 10:10 pm CLINICAL HISTORY: FALL INJURY COMPARISON: No comparisons TECHNIQUE: Left hip, AP and frogleg views of the left hip. FINDINGS: Left femoral intertrochanteric comminuted fracture. No acute or destructive bony process s een. IMPRESSION: Left femoral intertrochanteric comminuted fracture.
[2022-10-07] MEDS ORDERED: CEFTRIAXONE 1,000 MG in NA CHLORIDE 0.9% 50 ML IVPB SCH ×2 (01:00→20:00)
--- NOTE | 2022-10-07 01:10 | P.HP ---
Certification for Inpatient Patient admitted to: Inpatient With expected LOS: >2 Midnights Patient will require the following post-hospital care: None Practitioner: I am a practitioner with admitting privileges, knowledge of patient current condition, hospital course, and medical plan of care. Services: Services provided to patient in accordance with Admission requirements found in Title 42 Section 412.3 of the Code of Federal Regulations <ChellePalmer Wagoner - Last Filed: 10/07/22 01:05> Patient History Date of Service: 10/07/22 Reason for admission: Left hip fx, LEA, rhabdo History of Present Illness: 71-year-old male with history of COPD, previous CVA, history of drug and alcohol abuse, GERD presents presented to the emergency department by EMS after sustaining a fall. He reportedly had a fall earlier today around 10 AM and was possibly on the ground throughout the day, he reports that his landlord/roommate attempted to help him get up on 5 separate occasions dropped him each time to the floor. He was unable to get up at all. When he came in he is complaining of left hip pain, generalized pain related to multiple falls, chest pain related to fall. He was evaluated in the emergency department his labs were significant for leukocytosis white blood cell count 16.7 hemoglobin 10.3 hematocrit 30.5 sodium 130 creatinine 2.64 GFR 25 BUN 33 CPK 963 BNP 900 chest x-ray negative for acute findings on his hip, pelvic x-ray as well as the CT head, C-spine, chest abdomen pelvis a left femoral comminuted intertrochanteric fracture was noted, no other acute findings noted. Patient will need to be admitted for left hip fracture, mild rhabdo, LEA. - Past Medical/Surgical History Diabetic: No -: Hypertension -: Anxiety -: GERD -: COPD -: History of Gastric ulcer -: Alcohol Abuse -: Nicotine dependence -: Gastric ulcer repair -: Vasectomy x2 Psychosocial/ Personal History: He is single, has 5 children, he does not work. - Family History Father -: Hypertension, Stroke Notes: Mother -: Hypertension, Stroke Notes: - Social History Smoking Status: Current some day smoker Alcohol use: Yes CD- Drugs: No Caffeine use: No Place of Residence: Home <Palmer Corbett - Last Filed: 10/07/22 01:05> Date of Service: 10/07/22 <NicoletteGianfranco - Last Filed: 10/07/22 09:11> Allergies No Known Drug Allergies Allergy (Verified 06/23/15 20:10) Unknown Home Medications: RX: Acetaminophen [8 Hour Acetaminophen] 500 mg PO DAILY 01/01/21 RX: Ensure High Protein 237 ml PO BIDWM can 01/16/21 RX: Metoprolol Tartrate [Lopressor*] 12.5 mg PO BID 6AM 6PM tab 01/16/21 RX: Pantoprazole [Protonix Tab*] 40 mg PO BIDAC tab 01/16/21 RX: Sucralfate [Carafate*] 1 gm PO ACHS tab 01/16/21 Review of Systems 10-point ROS is otherwise unremarkable Cardiovascular: Chest Pain Musculoskeletal: Leg Pain <Palmer Corbett - Last Filed: 10/07/22 01:05> Physical Examination - Physical Exam General: Alert, In no apparent distress, Oriented x2 HEENT: Atraumatic, PERRLA, Mucous membr. moist/pink, EOMI, Sclerae nonicteric Neck: Supple, 2+ carotid pulse no bruit, No LAD, Without JVD or thyroid abnormality Respiratory: Clear to auscultation bilaterally, Normal air movement Cardiovascular: Regular rate/rhythm, Normal S1 S2 Capillary refill: <2 Seconds Gastrointestinal: Normal bowel sounds, No tenderness Musculoskeletal: No tenderness Integumentary: No rashes Neurological: Normal gait, Normal speech, Normal strength at 5/5 x4 extr, Normal tone, Normal affect Lymphatics: No axilla or inguinal lymphadenopathy - Studies Laboratory Data (last 24 hrs) 10/06/22 10/06/22 20:27 20:27 WBC 16.70 H Hgb 10.3 L Hct 30.5 L Plt Count 169 Sodium 130 L Potassium 5.1 BUN 33 H Creatinine 2.64 H Glucose 140 H Magnesium 2.1 Total Bilirubin 0.9 AST 44 H ALT 58 Alkaline Phosphatase 64 <Palmer Corbett - Last Filed: 10/07/22 01:05> - Studies Laboratory Data (last 24 hrs) 10/06/22 10/06/22 20:27 20:27 WBC 16.70 H Hgb 10.3 L Hct 30.5 L Plt Count 169 Sodium 130 L Potassium 5.1 BUN 33 H Creatinine 2.64 H Glucose 140 H Magnesium 2.1 Total Bilirubin 0.9 AST 44 H ALT 58 Alkaline Phosphatase 64 <Gianfranco Will - Last Filed: 10/07/22 09:11> Assessment and Plan - Plan Assessment: Comminuted left intertrochanteric femur fracture Mild rhabdomyolysis Acute kindey injury Multiple falls, chest pain COPD Hx of ETOH abuse Plan: Comminuted left intertrochanteric femur fracture NPO, IVF, ortho consult. PRN pain meds, hanna in place. Mild rhabdomyolysis Acute kindey injury Trend CPK, continue IVF, Nephrology consult, renal US Multiple falls, chest pain No acute traumatic findings aside from hip fx on CT, continue PRN pain meds. PT once cleared by ortho COPD PRN neb treatments. Hx of ETOH abuse Reports he drinks only 1-2 beers per day. Monitor for ETOH withdrawal, supplement thiamin, folic acid. DVT PPX:SCD Code status:Full Discharge Plan: Home Plan to discharge in: Greater than 2 days - Advance Directives Does patient have a Living Will: Yes Does patient have a Durable POA for Healthcare: No - Code Status/Comfort Care Code Status Assessed: Yes (Full code) Critical Care: No Time Spent Managing Pts Care (In Minutes): 70 <Palmer Corbett - Last Filed: 10/07/22 01:05> Physician Review: Patient Assessed, Agree with Above Assessment and Plan <Gianfracno Will - Last Filed: 10/07/22 09:11>
[2022-10-07] MEDS ORDERED: ONDANSETRON 4 MG/2 ML VIAL IV PRN (01:57)
[2022-10-07 03:01] VITALS: BMI 25.0
[2022-10-07] MEDS: NA CHLORIDE 0.9% 1,000 ML IV SCH ×3 (03:56→21:57)
[2022-10-07] MEDS: MORPHINE 2 MG/ML SYR IV PRN ×2 (03:57→07:58)
[2022-10-07 06:19] LABS: Absolute Lymphocytes (CBC) 0.8 K/uL (0.7-4.9); Hematocrit 27.5 % (39.6-49.0); Lymphocytes % 7.1 % (15.3-44.8); MCV 92.2 fL (80-100); MPV 8.2 fL (7.6-11.3); Platelets 121 thou/uL (152-406); RBC Red Blood Cell Count 2.98 M/uL (4.33-5.43)
[2022-10-07 06:57] LABS: Albumin 2.8 g/dL (3.4-5.0); Bilirubin Total 0.5 mg/dL (0.2-1.0); Potassium 4.3 mEq/L (3.5-5.1); Protein, Total 5.8 g/dL (6.4-8.2); Thyroid Stimulating Hormone 1.73 uIU/mL (0.358-3.740); Troponin High Sensitivity 21.3 pg/mL (<58.9); Uric Acid 8.5 mg/dL (3.5-7.2)
--- NOTE | 2022-10-07 07:34 | RAD REPORT ---
EXAM DESCRIPTION: US - Renal Ultrasound-Complete - 10/07/2022 6:52 am CLINICAL HISTORY: gio COMPARISON: Abdomen Exam Limited dated 01/01/2021 FINDINGS: Both kidneys are normal in size, shape and echotexture. The right kidney measures 10.6 cm. No hydronephrosis, focal mass or perinephric fluid. The left kidney measures 10.7 cm. No hydronephrosis, focal mass or perinephric fluid. Decompressed around a Jerome catheter. IMPRESSION: Renal ultrasound within normal limits. No hydronephrosis.
[2022-10-07] MEDS: THIAMINE HCL 100 MG TABLET PO SCH (07:58)
[2022-10-07] MEDS: FOLIC ACID 1 MG TABLET PO SCH (07:59)
[2022-10-07 08:21] LABS: Blood Morphology Comment NOT SEEN (NOT SEEN); Platelet Estimate ADEQ
--- NOTE | 2022-10-07 11:01 | P.CNS ---
Date of Consult: 10/07/22 Chief Complaint: Left hip fx, LEA, rhabdo History of Present Illness: patient was diagnosed with dementia by dr mckay in 01/2019, and had a cerebral bleed at that time, sequella includes chronic weakness in his left side, he had abilateral humerus fractures then the left pina was fixed with total shoulde the right side went unrepaired and he has right arm posturing. he lives alone in a trailer rented to him by Paulino who helps and caretakes for him. He reporth that yesterday Paulino found him and tried to help him, and "dropped him 6 times " EMS was called and he was found to have an intertrochanteric fracture in his lft hip. patient localizes pain to the left pina and guards movement of the left leg. he was in assisted living where he checked out to have access to tobaco and alcohol. chronic drug abbuse and non-compliance with multiple falls. he is arranged from his daughters, he consented to surgery and and I spoke to both of his daughters and they consented as well not on anticoagulants, NPO since 1:58 AM Allergies No Known Drug Allergies Allergy (Verified 06/23/15 20:10) Unknown Home Medications: Acetaminophen [8 Hour Acetaminophen] 500 mg PO DAILY 01/01/21 Ensure High Protein 237 ml PO BIDWM can 01/16/21 Metoprolol Tartrate [Lopressor*] 12.5 mg PO BID 6AM 6PM tab 01/16/21 Pantoprazole [Protonix Tab*] 40 mg PO BIDAC tab 01/16/21 Sucralfate [Carafate*] 1 gm PO ACHS tab 01/16/21 - Past Medical/Surgical History Diabetic: No -: Hypertension -: Anxiety -: GERD -: COPD -: History of Gastric ulcer -: Alcohol Abuse -: Nicotine dependence -: Gastric ulcer repair -: Vasectomy x2 Psychosocial/ Personal History: He is single, has 5 children, he does not work. - Family History Father Medical History: Hypertension, Stroke Notes: Mother Medical History: Hypertension, Stroke Notes: - Social History Smoking Status: Current every day smoker Alcohol use: Yes CD- Drugs: No Caffeine use: No Place of Residence: Home Review of Systems 10-point ROS is otherwise unremarkable Physical Examination Temp Pulse Resp BP Pulse Ox 97.7 F 90 14 105/67 99 10/07/22 08:00 10/07/22 08:00 10/07/22 08:00 10/07/22 08:00 10/07/22 08:00 General: Oriented x2 HEENT: Atraumatic Neck: Supple Musculoskeletal: Other (left leg is turned out pain is localized to left hip, guarding left leg motion) Laboratory Data (last 24 hrs) 10/06/22 10/06/22 20:27 20:27 WBC 16.70 H Hgb 10.3 L Hct 30.5 L Plt Count 169 Sodium 130 L Potassium 5.1 BUN 33 H Creatinine 2.64 H Glucose 140 H Magnesium 2.1 Total Bilirubin 0.9 AST 44 H ALT 58 Alkaline Phosphatase 64 Imagings Data: EXAM DESCRIPTION: RAD - Hip Left 2 View - 10/06/2022 10:10 pm CLINICAL HISTORY: FALL INJURY COMPARISON: No comparisons TECHNIQUE: Left hip, AP and frogleg views of the left hip. FINDINGS: Left femoral intertrochanteric comminuted fracture. No acute or destructive bony process seen. IMPRESSION: Left femoral intertrochanteric comminuted fracture. ct of pelvis IMPRESSION: Left femoral comminuted intertrochanteric fracture. No other acute solid organ traumatic findings. - Problems (1) Fracture, intertrochanteric, left femur Current Visit: Yes Status: Acute Qualifiers: Encounter type: initial encounter Fracture type: closed Fracture alignment: displaced Qualified Code(s): S72.142A - Displaced intertrochanteric fracture of left femur, initial encounter for closed fracture Conclusions/Impression: we will schedule him for a left hip IM barbi at 3:00pm today if he is cleared by cardiology and nephrology, patient consented and his daughters consented to the procedure.
[2022-10-07] MEDS ORDERED: CEFAZOLIN SODIUM 2 GM/VIAL ONE (15:02)
[2022-10-07] MEDS ORDERED: TRANEXAMIC ACID 1,000 MG/10 ML VIAL IV ONE (15:02)
[2022-10-07] MEDS ORDERED: Ringers Lactate 0 ML IV ONE (15:03)
[2022-10-07] MEDS ORDERED: Phenylephrine HCl 10 MG/ML 1 ML VIAL ONE (15:08)
[2022-10-07] MEDS ORDERED: FENTANYL CITR 100 MCG/2 ML ONE (15:08)
[2022-10-07] MEDS ORDERED: propofoL 200 MG/20 ML VIAL IV ONE (15:08)
[2022-10-07] MEDS ORDERED: LIDOCAINE 2% MPF 5 ML VIAL ONE (15:09)
[2022-10-07] MEDS ORDERED: NS 0.9% VIAL 20 ML ONE (15:09)
[2022-10-07] MEDS ORDERED: ONDANSETRON 4 MG/2 ML VIAL ONE (15:13)
[2022-10-07] MEDS ORDERED: NA CHLORIDE 0.9% 1,000 ML ONE (15:18)
--- NOTE | 2022-10-07 17:09 | OP ---
Surgeon: Rangel Aviles MD Bridge Teacher: Electrician Supervisor Airplane: AIDEN Arroyo Preoperative Diagnosis: Right hip intertrochanteric fracture. Postoperative Diagnosis: Right hip intertrochanteric fracture. Procedure Performed: Right hip intramedullary rodding. Complications: None. Disposition: To recovery room stable. Estimated Blood Loss: Minimal. Procedure In Detail: The patient was taken to the operative suite, placed in supine position, ____ suspended on the fracture table. Right hip virtually anatomically reduced. Incision was create d over the tip of the greater trochanter. A single stage reaming guidewire passage was performed. S election of a 9 x 11 mm x 125 degrees angle nail was selected. guidewire was introduced i n the subchondral bone of the femoral head followed by single stage reaming passage of the nail, plac ement of a 95 lag screw in the locking compression mode. Distal interlocking screw of 30 mm was temitope cted. Anatomic reduction was realized. A layered closure was performed followed by placement of jessica rile dressing. Anticipated the patient should be in the recovery room shortly. MICHAEL/DEMARCUS Voice ID: [id number] Report ID: [id number]
[2022-10-07] MEDS ORDERED: CEFAZOLIN 1 GM in NA CHLORIDE 0.9% 50 ML IVPB SCH (18:00)
--- NOTE | 2022-10-07 18:23 | RAD REPORT ---
EXAM DESCRIPTION: RAD - Pelvis - 10/07/2022 5:37 pm CLINICAL HISTORY: s/p IM rodding L hip COMPARISON: Pelvis dated 10/06/2022 FINDINGS/IMPRESSION: Status post ORIF of the left intertrochanteric hip fracture. No hardware compli cations. No pelvic fracture . Osteopenia.No acute fracture.
--- NOTE | 2022-10-07 18:24 | RAD REPORT ---
EXAM DESCRIPTION: RAD - Fluoroscopy <1 Hour - 10/07/2022 5:37 pm CLINICAL HISTORY: LEFT HIP RODDING COMPARISON: No comparisons FINDINGS/IMPRESSION: Three intra-operative fluoroscopic images submitted showing left hip ORIF with intertrochanteric hip fracture. Fluoro time: 1.8 minutes Cumulative dose: 17.8 mGy
--- NOTE | 2022-10-07 19:01 | P.PN ---
Date of Service: 10/08/22 Subjective: Patient's chart was reviewed. Patient with a comminuted left intertrochanteric femur fracture-patient is status post intramedullary rodding. Physical Exam: Vitals: Reviewed Gen: Alert, Oriented, NAD CV: regular rate & rhythm, no edema Pulm: clear bilaterally Abd: soft, nontender, nondistended MSK: no joint tenderness Neuro: No focal deficits Problem List: 1. Comminuted left intertrochanteric femur fracture, s/p right hip IM rodding (10/07) 2. Mild rhabdomyolysis 3. LEA 4. Multiple falls, chest pain 5. COPD 6. Hx of ETOH abuse PLAN 1. Continue with physical therapy and pain control 2. Monitor renal function 3. Physical therapy evaluation; patient with toe touch down weight-bearing 4. Monitor respiratory status; inhaler therapy 5. Refrain from alcohol abuse 6. Spoke with family and patient's daughter is medical [id number]. The sisters 1 Lupe to make the decisions. There is a gentleman a.m. semi will also helps with patient's day-to-day care however no one is there with patient 247 so patient will need to go to a care home facility.
--- NOTE | 2022-10-07 22:36 | CON ---
Date of Consultation: 10/07/2022 Chief Complaint: Acute kidney injury, left hip fracture, rhabdomyolysis. History Of Present Illness: Patient is a 71-year-old man with history of COPD, previous CVA, history of drug and alcohol abuse, GERD. He presented to emergency room by EMS after he sustained a fall. He had a fall earlier today around 10:00 a.m. and was possibly on the ground throughout the day. He reported that he his landlord or roommate attempted to help him to get him up on several occasions. Subsequently, EMS was called. Patient is to have surgery. Orthopneic team is evaluating the patient . He was complaining of left hip pain, generalized pain related to multiple falls as well as chest w all pain related to previous falls. Lab work was obtained and showed a white blood cell count was el evated up to 16.7, hemoglobin 10.3, hematocrit 30.5. Sodium 130, potassium 2.64. GFR 25. BUN 33. CPK 963. BNP 900. Chest x-ray was negative for acute finding and pelvic x-ray as well as CT scan of the head, C-spine, chest, abdomen, and pelvis without contrast was done for further evaluation [facility] and advanced radiology testing to rule out fracture. Nephrology consultation is re quested for acute kidney injury due to mild rhabdomyolysis and prerenal azotemia and ATN. Past Medical History: Hypertension, anxiety, GERD, COPD, history of gastric ulcer, alcohol abuse, ni cotine dependence, gastric ulcer, surgery, vasectomy x2. Family History: Hypertension, stroke. Father is and he had hypertension and stroke. Mothe r is , had hypertension and stroke. Social History: Some-day smoker. Alcohol, yes he is abusing alcohol. He denies drugs and he does n ot use caffeine. Review of Systems: Eyes: Denies vision changes. Ears, Nose, Mouth, and Throat: Denies sore throat, earache. Respiratory: Denies PND, orthopnea. Cardiovascular: Denies chest pain, palpitation, syncope. GI: Denies nausea, vomiting. Musculoskeletal: He is complaining of left hip pain, generalized pain, and chest wall pain. Pain is currently controlled. Physical Examination: General: Patient is awake, alert, follows commands. Eyes: Anicteric sclerae. EOMI. Ears, Nose, Mouth, and Throat: Oral mucosa moist. No pallor. Neck: Supple. No bruits. Lungs: Clear to auscultation bilaterally. Heart: S1, S2. Abdomen: Soft. Extremities: No edema. Laboratory Work: Sodium 130, potassium 5.1, BUN 33, creatinine 2.64, glucose 140. Magnesium 2.1. T otal bilirubin 0.9, AST 44, ALT 58, AP 64. Hemoglobin 10.3, WBC 6.7, platelet count 169,000. Impression And Plan: 1.Patient was found to have acute kidney injury and CPK level was elevated. Patient has mild rhabdo myolysis. Continue normal saline hydration IV. For acute kidney injury and rhabdomyolysis, monitor UA. 2.Rhabdomyolysis. Check phosphorus level and magnesium level. Continue IV fluids. 3.History of alcohol abuse. Patient will have protocol for withdrawal per primary team. Monitor ph osphorus level and electrolytes. 4.Hyponatremia due to decreased solute intake. Check TSH level and cortisol level. Sodium level nance s improved in response to normal saline. 5.Borderline hyperkalemia improved from 5.1 to 4.3. Likely, hyperkalemia is due to mild rhabdomyoly sis as well as hypovolemic hemodynamics. EB/MODL Voice ID: [id number] Report ID: [id number]
--- NOTE | 2022-10-07 22:42 | CON ---
Date of Consultation: 10/07/2022 Reason For Consultation: Preop assessment for left hip fracture. History Of Present Illness: A 71-year-old male with history of COPD, CVA, alcohol abuse, acid reflux , presented after a ground level fall around 10 o'clock in the morning, but he could not get up the f [place]. I was asked to do preop risk assessment prior to the surgery. Past Medical History: As outlined above in the HPI. Medications: Refer reconciliation sheet for detailed list. Allergies: NO KNOWN DRUG ALLERGIES. Family History: No premature coronary artery coronary artery disease. Social History: He is an active smoker. Drinks alcohol on a regular basis. Does not use any drugs. Review of Systems: All systems reviewed are negative except as mentioned in the HPI. Physical Examination: Vital Signs: Reviewed. Head and Neck: Pupils are equal, reactive to light. Intact eye movements. No JVD. No cervical lym phadenopathy. Neck: Supple. Thyroid is not enlarged. Lungs: Clear to auscultation bilaterally. No rhonchi, wheezing, or crackles. No accessory muscle u se. Heart: Irregular. No extra sounds. Abdomen: Soft, nontender. Bowel sounds positive. No organomegaly. No masses or hernia. No rigidi ty or rebound. Extremities: No clubbing, cyanosis. Intact pulses. Skin: No rash. Neurologic: Alert, awake. No acute focal deficits appreciated. Lymph Nodes: No cervical lymphadenopathy. Investigations: BUN is 34, creatinine 1.86. Cardiac enzymes are negative and hemoglobin is 9.4. Assessment/recommendations: 1.Cardiac preoperative risk assessment. This is an emergent surgery for hip fracture. Patient has multiple risk factors, but no cardiac complaints to proceed knowing he is at least a moderate cardiac risk, but given the nature of the hip fracture, I do not recommend any delay to proceed with surgery and we will monitor his cardiac status closely. 2.Elevated NT-proBNP. Obtain echo tomorrow and further recommendations accordingly. 3.Acute renal failure, probable rhabdomyolysis, responding to fluids. Just to be careful with fluid management, not to close an overload condition. SR/MODL Voice ID: [id number] Report ID: [id number]
[2022-10-08] MEDS ORDERED: CEFAZOLIN 1 GM in NA CHLORIDE 0.9% 50 ML IVPB SCH ×2
[2022-10-08] MEDS: CEFTRIAXONE 1,000 MG in NA CHLORIDE 0.9% 50 ML IVPB SCH (00:01)
[2022-10-08 02:58] LABS: Absolute Lymphocytes (CBC) 0.8 K/uL (0.7-4.9); Hematocrit 23.4 % (39.6-49.0); Lymphocytes % 11.8 % (15.3-44.8); MCV 93.9 fL (80-100); MPV 8.2 fL (7.6-11.3); Platelets 120 thou/uL (152-406); RBC Red Blood Cell Count 2.49 M/uL (4.33-5.43)
[2022-10-08] MEDS: MORPHINE 2 MG/ML SYR IV PRN ×2 (03:00→11:04)
[2022-10-08 03:09] LABS: Albumin 2.4 g/dL (3.4-5.0); Bilirubin Total 0.5 mg/dL (0.2-1.0); Phosphorus 2.7 mg/dL (2.5-4.9); Potassium 3.9 mEq/L (3.5-5.1); Protein, Total 5.3 g/dL (6.4-8.2)
[2022-10-08] MEDS: HYDROCODONE/APAP 5/325 MG TAB PO PRN ×3 (06:32→20:21)
[2022-10-08] MEDS: NA CHLORIDE 0.9% 1,000 ML IV SCH ×3 (06:32→16:32)
[2022-10-08] MEDS: ENOXAPARIN 30 MG/0.3 ML SQ SCH ×2 (08:32→20:35)
[2022-10-08] MEDS: THIAMINE HCL 100 MG TABLET PO SCH (08:32)
[2022-10-08] MEDS: FOLIC ACID 1 MG TABLET PO SCH (08:36)
--- NOTE | 2022-10-08 18:02 | EKG ---
Test Date: 2022-10-06 Test Time: 20:09:17 It Security Manager: MEASUREMENT RESULTS: Intervals: Rate: 99 TN: 148 QRSD: 108 QT: 360 QTc: 462 [place]: P: 40 TN: 148 QRS: 68 T: 45 INTERPRETIVE STATEMENTS: Normal sinus rhythm Right bundle branch block Abnormal ECG Compared to ECG 01/01/2021 13:26:01 Right bundle-branch block now present Incomplete right bundle-branch block no longer present ST (T wave) deviation no longer present Possible ischemia no longer present Prolonged QT interval no longer present Electronically Signed On 10-08-22 17:57:43 CDT by Juan Ramon Singh
[2022-10-08] MEDS: ENSURE SURGERY 237 ML CAN PO SCH (20:21)
--- NOTE | 2022-10-09 02:35 | PN ---
Date of Progress Note: 10/08/2022 Subjective: Acute kidney injury, severe secondary to volume depletion, prerenal azotemia. The patie nt is admitted to the hospital for left hip fracture. He was found to have elevated CK level, rhabdo myolysis and acute kidney injury. The patient was started on IV fluids. Potassium level was within normal ranges. CPK 963. Chest x-ray was negative for acute findings. Review of Systems: Denies chest pain, palpitation. Physical Examination: Lungs: Clear to auscultation bilaterally. Heart: S1-S2. Abdomen: Soft. Benign. Extremities: No edema. Impression And Plan: 1.The patient was found to have acute kidney injury and CPK was elevated. The patient has mild rhab domyolysis. Continue normal saline. Monitor, phosphorus, magnesium and calcium level. Continue to monitor renal panel. 2.Rhabdomyolysis. Check phosphorus and magnesium. Continue IV fluids. 3.History of alcohol abuse. The patient will have protocol for withdrawal and will be managed by pr imary team. Monitor phosphorus level and other electrolytes. 4.Hyponatremia due to decreased salt intake. Check TSH, cortisol level. Sodium level has improved in response to normal saline. 5.Borderline hyperkalemia. Potassium improved from 5.1 to 4.3. Lastly, hyperkalemia is due to mild rhabdomyolysis as well as hypovolemic hemodynamics. EB/MODL Voice ID: [id number] Report ID: [id number]
[2022-10-09] MEDS: NA CHLORIDE 0.9% 1,000 ML IV SCH ×2 (03:00→13:57)
[2022-10-09 05:07] LABS: Absolute Lymphocytes (CBC) 0.9 K/uL (0.7-4.9); Hematocrit 16.4 % (39.6-49.0); MCV 94.5 fL (80-100); MPV 7.7 fL (7.6-11.3); Platelets 108 thou/uL (152-406); RBC Red Blood Cell Count 1.74 M/uL (4.33-5.43)
[2022-10-09] MEDS ORDERED: ACETAMINOPHEN 500 MG TAB PO ONE (05:15)
[2022-10-09] MEDS ORDERED: DIPHENHYDRAMINE 50 MG/ML VIAL IV ONE (05:15)
[2022-10-09] MEDS ORDERED: NA CHLORIDE 0.9% 250 ML IV SCH ×2 (06:00→09:00)
[2022-10-09 06:31] LABS: Albumin 1.6 g/dL (3.4-5.0); Bilirubin Total 0.4 mg/dL (0.2-1.0); Potassium 3.1 mEq/L (3.5-5.1); Protein, Total 3.6 g/dL (6.4-8.2)
[2022-10-09 08:00] LABS: Absolute Lymphocytes (CBC) 1.2 K/uL (0.7-4.9); Hematocrit 19.1 % (39.6-49.0); Lymphocytes % 21.9 % (15.3-44.8); MPV 7.8 fL (7.6-11.3); Platelets 110 thou/uL (152-406); RBC Red Blood Cell Count 2.03 M/uL (4.33-5.43)
[2022-10-09] MEDS: ENSURE SURGERY 237 ML CAN PO SCH ×2 (09:00→21:00)
[2022-10-09] MEDS: ACETAMINOPHEN 325 MG TABLET PO PRN ×3 (09:04→22:32)
[2022-10-09] MEDS: THIAMINE HCL 100 MG TABLET PO SCH (09:06)
[2022-10-09] MEDS: FOLIC ACID 1 MG TABLET PO SCH (09:06)
[2022-10-09] MEDS: CEFTRIAXONE 1,000 MG in NA CHLORIDE 0.9% 50 ML IVPB SCH (09:08)
[2022-10-09] MEDS ORDERED: CALCIUM GLUCONATE 1 GM IVPB 1 GM/50 ML BAG IV ONE (10:58)
[2022-10-09 11:30] LABS: Potassium 3.8 mEq/L (3.5-5.1)
--- NOTE | 2022-10-09 19:12 | CON ---
Date of Consultation: 10/09/2022 Reason For Consultation: 71-year-old man with, past medical history of COPD, previous CVA, history of drug and alcohol abuse. History Of Present Illness: The patient was admitted to the emergency department after a fall. In the ER, sodium was 130, potassium 2.6. CPK 960. Nephrology consulted for further evaluation. His KI resolved on IV fluids. Currently, his current sodium is 144, Physical Examination: Vital Signs: Temperature 98.2, blood pressure 109/64, pulse rate 88. General: Awake and alert, not in distress. Neck: Supple. Negative JVD. Heart: Regular rate and rhythm. Normal S1, S2. Chest: Clear to auscultation bilaterally. No rales or wheezes. Abdomen: Soft and nontender. Extremities: No edema. Laboratory Data: Sodium 144, potassium 3.8, BUN 12, creatinine 0.8, calcium 7.5, white count 5.3, hemoglobin 6.5, and platelets 110. Assessment And Plan: 1. Acute kidney injury due to dehydration, which is resolved. 2. Hyponatremia due to dehydration, resolved, no need for IV fluid. 3. Rhabdomyolysis, improving. We will discontinue IV fluids. 4. Tibial fracture status post surgery. PT, OT. 5. Acute anemia. Monitor hemoglobin. trnsfuse if hemoglobin is less than 7. Thanks for allowing me to participate in patient care. Total time spent 55 minutes including documentation, reviewing labs, and discussing with the nursing staff. TIARRA Voice ID: [id number] Report ID: [id number]
[2022-10-09 22:46] LABS: Absolute Lymphocytes (CBC) 1.4 K/uL (0.7-4.9); Lymphocytes % 22.8 % (15.3-44.8); MCV 91.8 fL (80-100); MPV 7.7 fL (7.6-11.3); Platelets 117 thou/uL (152-406); RBC Red Blood Cell Count 2.95 M/uL (4.33-5.43)
[2022-10-10] MEDS: ACETAMINOPHEN 325 MG TABLET PO PRN ×3 (08:17→21:10)
[2022-10-10] MEDS: CEFTRIAXONE 1,000 MG in NA CHLORIDE 0.9% 50 ML IVPB SCH (08:18)
[2022-10-10] MEDS: THIAMINE HCL 100 MG TABLET PO SCH (08:18)
[2022-10-10] MEDS: FOLIC ACID 1 MG TABLET PO SCH (08:18)
[2022-10-10] MEDS: ENSURE SURGERY 237 ML CAN PO SCH ×2 (08:24→20:41)
--- NOTE | 2022-10-10 15:18 | PN ---
Date of Progress Note: 10/10/2022 Subjective: Patient was admitted with acute kidney injury, syr[place], and hyponatremia. P atient was treated. Kidney function has been improved and back to normal. Hyponatremia has been res olved. Physical Examination: Vital Signs: When I saw the patient, blood pressure of 110/68, pulse of 98. Chest: Clear to auscultation. Heart: S1, S2. Regular. Abdomen: Soft, nontender. Extremities: No edema. Laboratory Data: Sodium 144, potassium 3.8, bicarb 23, BUN 12, creatinine 0.8, GFR of 99. Hemoglobi n 9.4. Urinalysis negative for infection. Current Medications: The patient on include: 1.Ceftriaxone. 2.Diphenhydramine. 3.Lovenox. 4.Folic acid. 5.Calcium carbonate. 6.Morphine. Assessment And Plan: 1.Acute kidney injury secondary to prerenal, recovered, resolved. 2.Hyponatremia secondary to depletional, resolved. Rhabdomyolysis improved. We will continue to mo nitor the patient. 3.Fracture. Continue to follow up with Surgery. Patient cleared from the Renal standpoint for disc harge planning. JOAQUINA Voice ID: [id number] Report ID: [id number]
[2022-10-11] MEDS: ACETAMINOPHEN 325 MG TABLET PO PRN ×4 (03:42→22:08)
[2022-10-11 07:41] LABS: Absolute Lymphocytes (CBC) 1.4 K/uL (0.7-4.9); Hematocrit 26.4 % (39.6-49.0); Lymphocytes % 17.5 % (15.3-44.8); MCV 91.5 fL (80-100); MPV 7.6 fL (7.6-11.3); Platelets 147 thou/uL (152-406); RBC Red Blood Cell Count 2.89 M/uL (4.33-5.43)
[2022-10-11 08:00] LABS: Albumin 2.1 g/dL (3.4-5.0); Bilirubin Total 0.8 mg/dL (0.2-1.0); Magnesium 1.7 mg/dL (1.6-2.4); Potassium 3.5 mEq/L (3.5-5.1)
[2022-10-11] MEDS: ENSURE SURGERY 237 ML CAN PO SCH ×2 (09:00→20:26)
[2022-10-11] MEDS: CEFTRIAXONE 1,000 MG in NA CHLORIDE 0.9% 50 ML IVPB SCH (09:32)
[2022-10-11] MEDS: ENOXAPARIN 30 MG/0.3 ML SQ SCH ×2 (09:37→20:26)
[2022-10-11] MEDS: THIAMINE HCL 100 MG TABLET PO SCH (09:39)
[2022-10-11] MEDS: FOLIC ACID 1 MG TABLET PO SCH (09:39)
--- NOTE | 2022-10-11 19:27 | PN ---
Date of Progress Note: 10/11/2022 Subjective: The patient was admitted to the hospital with acute kidney injury secondary to prerenal, recovered, resolved. The patient doing well. No nausea or vomiting. Physical Examination: Vital Signs: When I saw the patient, blood pressure 104/64, pulse of 74, afebrile. Chest: Clear to auscultation. Heart: S1, S2 regular. Abdomen: Soft, nontender. Extremities: No edema. Neurologic: Alert. No focality. Laboratory Data: For the patient, hemoglobin 9.3. Sodium 136, potassium 3.5, bicarb 26, BUN 14, cre atinine 0.7, calcium 7.8. Current Medications: The patient on include: 1.Lovenox. 2.Tylenol. 3.Folic acid. Assessment And Plan: 1.Acute kidney injury secondary to prerenal, recovered, resolved. 2.Hyponatremia secondary to depletional, resolved. 3.Fracture. Continue to follow up with primary. Patient cleared from the renal standpoint for disc harge planning. JOAQUINA Voice ID: [id number] Report ID: [id number]
[2022-10-12] MEDS: ACETAMINOPHEN 325 MG TABLET PO PRN ×3 (06:32→20:30)
[2022-10-12] MEDS: ENSURE SURGERY 237 ML CAN PO SCH ×2 (09:00→20:35)
[2022-10-12] MEDS: THIAMINE HCL 100 MG TABLET PO SCH (09:18)
[2022-10-12] MEDS: FOLIC ACID 1 MG TABLET PO SCH (09:18)
[2022-10-12] MEDS: ENOXAPARIN 30 MG/0.3 ML SQ SCH ×2 (09:18→20:32)
--- NOTE | 2022-10-12 13:54 | P.PN ---
Subjective Date of Service: 10/12/22 Chief Complaint: Left hip fx, LEA, rhabdo Subjective: No new changes Physical Examination - Vital Signs Temperature: 98.4 F Blood Pressure: 115/72 Pulse: 72 Respirations: 16 Pulse Ox (%): 97 - Physical Exam General: Other (appears as his stated age) HEENT: Atraumatic, Normocephalic Neck: Supple Respiratory: Other (symmetric chest expansion) Cardiovascular: No rubs, No murmurs Gastrointestinal: Soft and benign, No guarding Musculoskeletal: No clubbing Integumentary: No warmth Neurological: Normal speech, Normal tone Lymphatics: No axilla or inguinal lymphadenopathy Urinary: Other (no bladder distention) External genitalia: Deferred Rectal: Deferred - Studies Microbiology Data (last 24 hrs): 10/06/22 21:37 Blood - Blood Aerobic Blood Culture - Final No growth in 5 days. 10/06/22 21:37 Blood - Blood Anaerobic Blood Culture - Final No growth in 5 days. 10/06/22 21:33 Blood - Blood Aerobic Blood Culture - Final No growth in 5 days. 10/06/22 21:33 Blood - Blood Anaerobic Blood Culture - Final No growth in 5 days. Assessment And Plan - Plan 1. Acute kidney injury secondary to prerenal, recovered, resolved. 2. Hyponatremia secondary to depletional, resolved. Encourage adeq po solid food intake. 3. L femoral fracture. Per other services. 4. Hypokalemia. Improved. KCl repletion prn. Physician Review: Patient Assessed, Agree with Above Assessment and Plan
[2022-10-13] MEDS: ENOXAPARIN 30 MG/0.3 ML SQ SCH ×2 (08:11→21:00)
[2022-10-13] MEDS: THIAMINE HCL 100 MG TABLET PO SCH (08:11)
[2022-10-13] MEDS: FOLIC ACID 1 MG TABLET PO SCH (08:11)
[2022-10-13] MEDS: ENSURE SURGERY 237 ML CAN PO SCH ×2 (08:12→21:00)
[2022-10-13] MEDS: HYDROCODONE/APAP 5/325 MG TAB PO PRN (13:28)
[2022-10-13] MEDS ORDERED: KCL 20 MEQ/100 mL IVPB 20 MEQ/100 ML BAG IV SCH (14:00)
--- NOTE | 2022-10-13 16:13 | PN ---
Date of Progress Note: 10/13/2022 Subjective: Patient was admitted to the hospital with acute kidney injury, hyponatremia, and rhabdo. Patient on hydration, kidney function has been improved, normalized. Objective: Vital Signs: When I saw the patient; blood pressure 133/67, pulse of 79, afebrile. Chest: Clear to auscultation. Heart: S1, S2. Regular. Abdomen: Soft, nontender. Extremity: No edema. Neurologic: Alert. No focality. Laboratory Data: Sodium 136, potassium 3.5, bicarb 26, BUN 14, creatinine 0.7, calcium 7.8. Albumin 2.1, corrected calcium is 9.4. Current Medications: The patient on, include: 1.Tylenol. 2.Lovenox. 3.Thiamin. Assessment And Plan: 1.Acute kidney injury secondary to rhabdomyolysis and prerenal, recovered, resolved. 2.Hyponatremia, depletional, resolved. 3.Left humeral fracture. Will follow up with the primary. 4.Hypokalemia. I am going to go ahead and supplement. 5.Rhabdo, resolved. LU/DEMARCUS Voice ID: [id number] Report ID: [id number]
[2022-10-14] MEDS: ENOXAPARIN 30 MG/0.3 ML SQ SCH ×3 (09:00→21:00)
[2022-10-14] MEDS: ENSURE SURGERY 237 ML CAN PO SCH ×2 (09:00→21:00)
[2022-10-14] MEDS: THIAMINE HCL 100 MG TABLET PO SCH (09:37)
[2022-10-14] MEDS: FOLIC ACID 1 MG TABLET PO SCH (09:37)
[2022-10-14] MEDS: HYDROCODONE/APAP 5/325 MG TAB PO PRN ×2 (13:55→21:12)
--- NOTE | 2022-10-14 16:46 | PN ---
Date of Progress Note: 10/14/2022 Subjective: The patient was admitted to the hospital with acute kidney injury secondary to dehydrati on. The patient's kidney function started being stabilized. Physical Examination: Vital Signs: When I saw the patient; blood pressure 107/63, pulse of 64, afebrile. Chest: Clear to auscultation. Heart: S1, S2. Systolic murmur. Abdomen: Soft, nontender. Extremity: No edema. Neurologic: Alert. Pleasantly confused. Laboratory Data: Hemoglobin 9.3. Sodium 136, potassium 3.5, bicarb 26, BUN 14, creatinine 0.7, calc ium 7.8. Current Medications: The patient on include; 1.Tylenol. 2.Lovenox. 3.Zofran. 4.Folic acid. Assessment And Plan: 1.Acute kidney injury secondary to prerenal/rhabdomyolysis/fall, recovered, resolved. 2.Hyponatremia, depletional, resolved. 3.Left humeral fracture as by primary. 4.Hypokalemia, status post supplement. 5.Rhabdomyolysis, resolved. LU/DEMARCUS Voice ID: [id number] Report ID: [id number]
--- NOTE | 2022-10-15 01:31 | P.PN ---
Date of Service: 10/09/22 Subjective: patient not really agreeing to participate a lot with physical therapy. He has been getting out of bed and he can toe-touch weightbear but he is not willing to participate readily. Continue gently hydrating and continue with inhaler therapy. Physical Exam: Vitals: Reviewed Gen: Alert, Oriented, NAD CV: regular rate & rhythm, no edema Pulm: clear bilaterally Abd: soft, nontender, nondistended MSK: joint tenderness of the left leg Neuro: No focal deficits Problem List: 1. Comminuted left intertrochanteric femur fracture, s/p right hip IM rodding (10/07) 2. Mild rhabdomyolysis 3. LEA 4. Multiple falls, chest pain 5. COPD 6. Hx of ETOH abuse PLAN 1. Continue with physical therapy and pain control 2. Monitor renal function 3. Physical therapy evaluation; patient with toe touch down weight-bearing 4. Monitor respiratory status; inhaler therapy 5. Refrain from alcohol abuse 6. Spoke with family and patient's daughter is medical [id number]. The sisters 1 [facility] to make the decisions. There is a gentleman a.m. semi will also helps with patient's day-to-day care however no one is there with patient 247 so patient will need to go to a retirement facility.
--- NOTE | 2022-10-15 01:36 | P.PN ---
Date of Service: 10/10/22 Subjective: patient was given 2 units of packed red blood cells. Patient's hemoglobin is stable. No more active bleeding noted. Physical Exam: Vitals: Reviewed Gen: Alert, Oriented, NAD CV: regular rate & rhythm, no edema Pulm: clear bilaterally Abd: soft, nontender, nondistended MSK: joint tenderness of the left leg Neuro: No focal deficits Problem List: 1. Comminuted left intertrochanteric femur fracture, s/p right hip IM rodding (10/07) 2. Mild rhabdomyolysis 3. LEA 4. Multiple falls, chest pain 5. COPD 6. Hx of ETOH abuse 7. Anemia, ABL PLAN 1. Continue with physical therapy and pain control 2. Monitor renal function; monitor H&H. Transfused 2u PRBC. 3. Physical therapy evaluation; patient with toe touch down weight-bearing 4. Monitor respiratory status; inhaler therapy 5. Refrain from alcohol abuse 6. Spoke with family and patient's daughter is medical [id number]-uhdlvoeh. The sisters have chosen [facility] to make the decisions. There is a gentleman named Paulino who also helps with patient's day-to-day care; however, no one is there with patient 24-7. So patient will need to go to a [facility] facility.
--- NOTE | 2022-10-15 01:38 | P.PN ---
Date of Service: 10/11/22 Subjective: Patient is doing well. Patient's clinical symptoms are stable. Have encouraged patient to ambulate. One patient get out of bed. Spoke with family and they want patient to go to [facility] for senior care facility placement to continue physical therapy at that facility. Physical Exam: Vitals: Reviewed Gen: Alert, Oriented, NAD CV: regular rate & rhythm, no edema Pulm: clear bilaterally Abd: soft, nontender, nondistended MSK: joint tenderness of the left leg Neuro: No focal deficits Problem List: 1. Comminuted left intertrochanteric femur fracture, s/p right hip IM rodding (10/07) 2. Mild rhabdomyolysis 3. LEA 4. Multiple falls, chest pain 5. COPD 6. Hx of ETOH abuse 7. Anemia, ABL PLAN 1. Continue with physical therapy and pain control 2. Monitor renal function; monitor H&H. Transfused 2u PRBC. 3. Physical therapy evaluation; patient with toe touch down weight-bearing 4. Monitor respiratory status; inhaler therapy 5. Refrain from alcohol abuse 6. Spoke with family and patient's daughter is medical gwiaw-pl-jfftclaf. The sisters have chosen [facility] to make the decisions. There is a gentleman named Paulino who also helps with patient's day-to-day care; however, no one is there with patient 24-7. So patient will need to go to a senior care facility.
--- NOTE | 2022-10-15 01:41 | P.PN ---
Date of Service: 10/12/22 Subjective: Worked with physical therapy today and we were able to get patient out of bed and ambulate. We will continue to encourage patient to ambulate. Physical Exam: Vitals: Reviewed Gen: Alert, Oriented, NAD CV: regular rate & rhythm, no edema Pulm: clear bilaterally Abd: soft, nontender, nondistended MSK: joint tenderness of the left leg Neuro: No focal deficits Problem List: 1. Comminuted left intertrochanteric femur fracture, s/p right hip IM rodding (10/07) 2. Mild rhabdomyolysis 3. LEA 4. Multiple falls, chest pain 5. COPD 6. Hx of ETOH abuse 7. Anemia, ABL PLAN Continue with plan of care as mentioned below: 1. Continue with physical therapy and pain control 2. Monitor renal function; monitor H&H. Transfused 2u PRBC. Hemoglobin has been stable since transfusion. 3. Physical therapy evaluation; patient with toe touch down weight-bearing; Patient is home with physical therapy. 4. Monitor respiratory status; inhaler therapy 5. Refrain from alcohol abuse 6. Spoke with family and patient's daughter is medical [id number]. The sisters have chosen [facility] to make the decisions. There is a gentleman named Paulino who also helps with patient's day-to-day care; however, no one is there with patient 24-7. So patient will need to go to a [facility] facility.
--- NOTE | 2022-10-15 01:44 | P.PN ---
Date of Service: 10/13/22 Subjective: Patient is doing okay today. They did get him out of bed to the bedside chair. Patient denies any other complaints. Physical Exam: Vitals: Reviewed Gen: Alert, Oriented, NAD CV: regular rate & rhythm, no edema Pulm: clear bilaterally Abd: soft, nontender, nondistended MSK: joint tenderness of the left leg Neuro: No focal deficits Problem List: 1. Comminuted left intertrochanteric femur fracture, s/p right hip IM rodding (10/07) 2. Mild rhabdomyolysis 3. LEA 4. Multiple falls, chest pain 5. COPD 6. Hx of ETOH abuse 7. Anemia, ABL PLAN Continue with plan of care as mentioned below: 1. Continue with physical therapy 2. Labs remained stable 3. When patient participates with physical therapy he does well. But a lot of time he wants to sleep and rest so he can be left alone. 4. Spoke with family and patient's daughter is medical [id number]. The sisters have chosen [facility] to make the decisions. There is a gentleman named Paulino who also helps with patient's day-to-day care; however, no one is there with amber nunez 24-7. So patient will need to go to a [facility] facility.
--- NOTE | 2022-10-15 01:46 | P.PN ---
Date of Service: 10/14/22 Subjective: Patient doing well no new complaints. Clinical symptoms are stable. Physical Exam: Vitals: Reviewed Gen: Alert, Oriented, NAD CV: regular rate & rhythm, no edema Pulm: clear bilaterally Abd: soft, nontender, nondistended MSK: joint tenderness of the left leg Neuro: No focal deficits Problem List: 1. Comminuted left intertrochanteric femur fracture, s/p right hip IM rodding (10/07) 2. Mild rhabdomyolysis 3. LEA 4. Multiple falls, chest pain 5. COPD 6. Hx of ETOH abuse 7. Anemia, ABL PLAN Continue with plan of care as mentioned below: 1. Continue with physical therapy 2. Labs are stable 3. When patient participates with physical therapy he does well. But a lot of time he wants to sleep and rest so he can be left alone. 4. Spoke with family and patient's daughter is medical [id number]. The sisters have chosen [facility] to make the decisions. There is a gentleman named Paulino who also helps with patient's day-to-day care; however, no one is there with patient 24-7. So patient will need to go to a half-way facility-[facility] has been chosen.
[2022-10-15] MEDS: HYDROCODONE/APAP 5/325 MG TAB PO PRN ×3 (08:13→21:18)
[2022-10-15] MEDS: ENOXAPARIN 30 MG/0.3 ML SQ SCH ×2 (08:14→20:07)
[2022-10-15] MEDS: THIAMINE HCL 100 MG TABLET PO SCH (08:14)
[2022-10-15] MEDS: FOLIC ACID 1 MG TABLET PO SCH (08:14)
[2022-10-15] MEDS: ENSURE SURGERY 237 ML CAN PO SCH (08:16)
[2022-10-15] MEDS: ENSURE ENLIVE 237 ML CAN PO SCH ×2 (09:00→20:06)
--- NOTE | 2022-10-15 17:08 | P.PN ---
Subjective Date of Service: 10/15/22 Chief Complaint: Left hip fx, LEA, rhabdo No acute events overnight. He reports that he is doing well this morning. He is pending placement to [facility]. He denies any chest pain or palpitations. Review of Systems 10-point ROS is otherwise unremarkable General: Weakness (generalized) Physical Examination - Vital Signs Temperature: 98.1 F Blood Pressure: 104/64 Pulse: 61 Respirations: 18 Pulse Ox (%): 97 - Physical Exam General: Alert, In no apparent distress, Oriented x3 HEENT: Atraumatic, Mucous membr. moist/pink, Sclerae nonicteric Neck: JVD not distended Respiratory: Clear to auscultation bilaterally, Normal air movement Cardiovascular: No edema, Regular rate/rhythm, Normal S1 S2, No gallops, No rubs, No murmurs Gastrointestinal: Normal bowel sounds, Soft and benign, Non-distended, No tenderness, No rebound, No guarding Musculoskeletal: No clubbing Integumentary: No rashes Neurological: Normal speech, Normal affect Assessment And Plan - Plan # Traumatic Ground-Level Fall complicated by Comminuted Left Intertrochanteric Femur Fracture - Radiology: - Left hip x-ray = "left femoral intertrochanteric comminuted fracture." - Chest x-ray = "no acute cardiopulmonary process." - CT head/cervical spine/chest/abdomen/pelvis = "left femoral comminuted intertrochanteric fracture. No other acute solid organ traumatic findings. Subtle lumbar endplate compression deformities and healing right rib fractures are likely not acute." - Pelvis x-ray = "comminuted and impacted left femoral intertrochanteric fracture." - Orthopedic Surgery consulted and he is s/p right hip intramedullary rodding on 10/07/22 - Currently pending placement to [facility] - Continue PT # Suspect Acute Blood Loss Anemia secondary to Post-Operative Bleeding - Hgb: 10.3 -> 9.4 -> 7.9 -> 5.6 -> 6.5 -> 9.4 -> 9.3 - S/P 2 units pRBCs since admission - Monitor H&H # KDIGO Stage III Acute Kidney Injury - resolved # Mild Rhabdomyolysis - Nephrology consulted - recommendations appreciated - Creatinine = 2.64 -> 1.86 -> 1.13 -> 0.56 -> 0.80 -> 0.74 - Urinalysis = 1+ ketones, 5-10 RBCs, 10-20 WBCs, 10-20 hyaline casts - Renal US = "renal ultrasound within normal limits. No hydronephrosis." - Monitor creatinine and urine output - Renally dose medications # History of Alcohol Use Disorder - No evidence of alcohol withdrawal - Continue thiamine, folic acid Gianfranco Will M.D.
[2022-10-16] MEDS: HYDROCODONE/APAP 5/325 MG TAB PO PRN ×3 (02:36→15:23)
--- NOTE | 2022-10-16 05:25 | PN ---
Date of Progress Note: 10/15/2022 Chief Complaint: Acute kidney injury secondary to volume depletion. Subjective: Renal function improved in response to IV fluids. The patient was treated with IV fluid s for rhabdomyolysis and acute kidney injury secondary to volume depletion. Review of Systems: Denies chest pain or palpitation. Physical Examination: Lungs: Clear to auscultation bilaterally. Heart: S1, S2. Abdomen: Soft. Extremities: No edema. Impression And Plan: 1.Acute kidney injury secondary to prerenal state, rhabdomyolysis, and recent history of fall, volum e depletion. Continue IV fluids as needed. Monitor urine output and continue to monitor fluid lisa ce. 2.Hyponatremia, resolved. Monitor electrolytes. 3.Left humeral fracture as per primary team. 4.Hypokalemia, status post treatment. Electrolytes stable. Potassium level is within normal limits . 5.Rhabdomyolysis, resolved. The patient responded to IV fluids. EB/MODL Voice ID: [id number] Report ID: [id number]
[2022-10-16] MEDS: ENSURE ENLIVE 237 ML CAN PO SCH (08:08)
[2022-10-16] MEDS: FOLIC ACID 1 MG TABLET PO SCH (08:08)
[2022-10-16] MEDS: THIAMINE HCL 100 MG TABLET PO SCH (08:08)
[2022-10-16] MEDS: ENOXAPARIN 30 MG/0.3 ML SQ SCH (08:12)
[2022-10-16 10:00] VITALS: O2SAT 95
--- NOTE | 2022-10-16 12:25 | P.DS ---
Admission Date: 10/07/22 Discharge Date: 10/16/22 Disposition: TRANSFER TO INTERMEDIATE Discharge Condition: GOOD Reason for Admission: Left hip fx, LEA, rhabdo Consultations: 1. Orthopedic Surgery 2. Nephrology 3. Cardiology Procedures: - 10/07/2022 - Left Intramedullary Rodding Hospital Course: DIAGNOSES: # Traumatic Ground-Level Fall complicated by Comminuted Left Intertrochanteric Femur Fracture # Suspect Acute Blood Loss Anemia secondary to Post-Operative Bleeding # KDIGO Stage III Acute Kidney Injury - resolved # Mild Rhabdomyolysis # History of Alcohol Use Disorder HOSPITAL COURSE: Mr. Mega Farnsworth is a 71 year old male with a past medical history significant for alcohol use disorder who was admitted to the [facility] on 10/07/2022 following a traumatic ground-level fall. He was admitted to the Medicine service. Upon further evaluation, his left hip x-ray revealed, "left femoral intertrochanteric comminuted fracture." His CT head/cervical spine/chest/abdomen/pelvis revealed, "left femoral comminuted intertrochanteric fracture. No other acute solid organ traumatic findings. Subtle lumbar endplate compression deformities and healing right rib fractures are likely not acute." His pelvis x-ray revealed, "comminuted and impacted left femoral intertrochanteric fracture." Orthopedic Surgery was consulted and he was evaluated by Dr. Aviles. On 10/07/2022, he underwent left hip intramedullary rodding. He tolerated the procedure well and worked with PT. His post-operative course was complicated by blood loss anemia, which required 2 units pRBCs. It was recommended that he continue to receive therapy services at discharge and, with the assistance of case management, he was accepted to [facility]. During his hospitalization, he was found to have a stage III acute kidney injury. Nephrology was consulted and he was evaluated by Dr. Camara. His renal ultrasound revealed, "renal ultrasound within normal limits. No hydronephrosis." Over the course of his hospitalization, his creatinine normalized. He has been cleared for discharge from a Nephrology standpoint. On 10/16/2022, he was seen on morning rounds and deemed medically stable for discharge. He was given the opportunity to ask questions and reported no further questions. Furthermore, all questions were answered to the best of my ability. A copy of this discharge summary will be sent to the above providers to facilitate continuity of care. Today, I personally spent 25 minutes on his case, of which greater than 50% of the time was spent in patient education, counseling, and coordination of care as described above. - Physical Exam General: Alert, In no apparent distress, Oriented x3 HEENT: Atraumatic, Mucous membr. moist/pink, Sclerae nonicteric Respiratory: Clear to auscultation bilaterally, Normal air movement Cardiovascular: No edema, Regular rate/rhythm, No murmurs Gastrointestinal: Normal bowel sounds, Soft, Non-distended, No tenderness Musculoskeletal: No clubbing Integumentary: No rashes Neurological: Normal speech, Normal affect Vital Signs/Physical Exam: Temp Pulse Resp BP Pulse Ox 97.5 F 84 18 116/57 L 95 10/16/22 08:00 10/16/22 08:00 10/16/22 08:09 10/16/22 08:00 10/16/22 08:09 Laboratory Data at Discharge: WBC Cancelled 10/14/22 06:00 Hgb Cancelled 10/14/22 06:00 Hct Cancelled 10/14/22 06:00 Plt Count Cancelled 10/14/22 06:00 Sodium 136 mEq/L (136-145) 10/11/22 07:17 Potassium 3.5 mEq/L (3.5-5.1) 10/11/22 07:17 BUN 14 mg/dL (7-18) 10/11/22 07:17 Creatinine 0.74 mg/dL (0.70-1.30) 10/11/22 07:17 Glucose 101 mg/dL (74-106) 10/11/22 07:17 Uric Acid 8.5 mg/dL (3.5-7.2) H 10/07/22 06:07 Phosphorus 2.7 mg/dL (2.5-4.9) 10/08/22 02:30 Magnesium 1.7 mg/dL (1.6-2.4) 10/11/22 07:17 Total Bilirubin 0.8 mg/dL (0.2-1.0) 10/11/22 07:17 AST 19 U/L (15-37) 10/11/22 07:17 ALT 30 U/L (16-61) 10/11/22 07:17 Alkaline Phosphatase 54 U/L (45-117) 10/11/22 07:17 Triglycerides 100 mg/dL (<150) 10/07/22 06:07 Cholesterol 91 mg/dL (<200) 10/07/22 06:07 HDL Cholesterol 47 mg/dL (40-60) 10/07/22 06:07 Cholesterol/HDL Ratio 1.94 10/07/22 06:07 Home Medications: Acetaminophen [8 Hour Acetaminophen] 500 mg PO DAILY 01/01/21 Ensure High Protein 237 ml PO BIDWM can 01/16/21 Metoprolol Tartrate [Lopressor*] 12.5 mg PO BID 6AM 6PM tab 01/16/21 Pantoprazole [Protonix Tab*] 40 mg PO BIDAC tab 01/16/21 Sucralfate [Carafate*] 1 gm PO ACHS tab 01/16/21 Physician Discharge Instructions: - You are being discharged to [facility]: Once released from there, please schedule the following: - Please call and schedule a follow-up appointment with your PCP in 3-5 days - Please have your PCP repeat your blood work to make sure your anemia has improved/resolved - Your urine sample had a small amount of blood in it. It is important to exc lude cancer as the cause of the blood. Please discuss with your PCP for further evaluation - Please call and schedule a follow-up appointment with Orthopedic Surgery (Dr. Aviles) in 3-5 days Diet: AHA Activity: Fall precautions Followup: NONE,NONE [Primary Care Provider] - Rangel Aviles MD [ACTIVE - CAN ADMIT] - Time spent managing pt's care (in minutes): 25
[2022-10-16 13:08] VITALS: BP 103/58; TEMP 97.4
[2022-10-16 13:41] LABS: SARS-CoV-2 Antigen Rapid Res Negative (Negative)
--- NOTE | 2022-10-16 15:49 | PN ---
Date of Progress Note: 10/16/2022 Subjective: The patient was admitted with acute kidney injury and rhabdomyolysis. The patient has h yponatremia. The patient's after hydration kidney function has been improved to normalized. The pat ient feeling well. Physical Examination: Vital Signs: Chest: Clear to auscultation. Heart: S1, S2. Regular. Abdomen: Soft, nontender. Extremity: No edema. Neurological: Alert. No focality. Laboratory Data: Hemoglobin 9.3. Sodium 136, potassium 3.5, bicarb 26, BUN 14, creatinine 0.7. Current Medications: The patient on include Tylenol, Lovenox, Zofran, and folic acid. Assessment And Plan: 1.Acute kidney injury secondary to prerenal and rhabdomyolysis secondary to fall, recovered, resolve d. 2.Hyponatremia, depletional, resolved. 3.Femoral fracture as by primary. 4.Hypokalemia, status post supplement, resolved. 5.Rhabdomyolysis secondary to fall, recovered, resolved. LU/DEMARCUS Voice ID: [id number] Report ID: [id number]
== END 2022-10-16 15:59 | DRG 480 ==
LOC: ER 19:47 → OBSVTOIN 10-07 00:03 → 2ND 10-07 00:03
PROVIDERS: ADMIT Internal Medicine; ATTEND Internal Medicine
PROC: 0QS606Z Reposition Right Upper Femur with Intramedullary Internal Fixation Device, Open Approach (ICD-10-PCS; principal; 2022-10-07 15:00)
PROC: 30233N1 Transfusion of Nonautologous Red Blood Cells into Peripheral Vein, Percutaneous Approach (ICD-10-PCS; 2022-10-12)
DX: S72.142A Displaced intertrochanteric fracture of left femur, initial encounter for closed fracture (principal); I21.4 Non-ST elevation (NSTEMI) myocardial infarction; N17.0 Acute kidney failure with tubular necrosis; M62.82 Rhabdomyolysis; N39.0 Urinary tract infection, site not specified; E87.1 Hypo-osmolality and hyponatremia; D62 Acute posthemorrhagic anemia; I10 Essential (primary) hypertension; E87.5 Hyperkalemia; E86.9 Volume depletion, unspecified; E86.0 Dehydration; J44.9 Chronic obstructive pulmonary disease, unspecified; E87.6 Hypokalemia; K21.9 Gastro-esophageal reflux disease without esophagitis; D72.829 Elevated white blood cell count, unspecified; F19.10 Other psychoactive substance abuse, uncomplicated; F03.90 Unspecified dementia, unspecified severity, without behavioral disturbance, psychotic disturbance, mood disturbance, and anxiety; F17.210 Nicotine dependence, cigarettes, uncomplicated; R29.6 Repeated falls; Z60.2 Problems related to living alone; Z98.52 Vasectomy status; Z86.73 Personal history of transient ischemic attack (TIA), and cerebral infarction without residual deficits; Z91.81 History of falling; Z91.199 Patient's noncompliance with other medical treatment and regimen due to unspecified reason; Z79.899 Other long term (current) drug therapy; W06.XXXA Fall from bed, initial encounter; Y93.89 Activity, other specified; Y99.9 Unspecified external cause status; Y92.013 Bedroom of single-family (private) house as the place of occurrence of the external cause
CPT/HCPCS: 36415; 36430; 51702; 70450; 71045; 71250; 72125; 72170; 76000; 76770; 80048; 80053; 80061; 80143; 80179; 80307; 81001; 82077; 82140; 82550; 83735; 83880; 84100; 84145; 84439; 84443; 84484; 84550; 85025; 86021; 86850; 86900; 86901; 86920; 87040; 87086; 87088; 87811; 93005; 96365; 97110; 97116; 97161; 97165; 97530; 99285; A4216; J0612; J0690; J0696; J1200; J1650; J2001; J2270; J2371; J2405; J2704; J3010; J3480; J7030; J7050; J7120; P9016

== ENCOUNTER 2024-03-07 12:52 | Emergency (ER) | payer OTHER ==
[2024-03-07] MEDS ORDERED: ONDANSETRON 4 MG/2 ML VIAL ONE (13:26)
[2024-03-07] MEDS ORDERED: FAMOTIDINE 20 MG/2 ML VIAL IV ONE (13:26)
[2024-03-07] MEDS ORDERED: NA CHLORIDE 0.9% 1,000 ML ONE (13:26)
[2024-03-07] MEDS ORDERED: THIAMINE 200 MG/2 ML INJ ONE (13:26)
[2024-03-07] MEDS ORDERED: MULTIVITAMINS 10 ML VIAL (INJ) IV ONE (13:26)
[2024-03-07 13:29] LABS: Absolute Basophils 0.1 K/uL (0-0.5); Absolute Eosinophils 0.2 K/uL (0-0.5); Absolute Lymphocytes (CBC) 1.4 K/uL (0.7-4.9); Absolute Monocytes 0.8 K/uL (0.1-1.3); Absolute Neutrophil 4.7 K/uL (1.8-8.0); Basophils % 0.9 % (0-1.3); Eosinophils % 2.2 % (0-4.4); Hematocrit 37.6 % (39.6-49.0); Hemoglobin 12.5 g/dL (13.6-17.9); Lymphocytes % 19.1 % (15.3-44.8); MCH 29.3 pg (27.0-35.0); MCHC 33.1 g/dL (32.0-36.0); MCV 88.5 fL (80-100); MPV 8.2 fL (7.6-11.3); Monocytes % 11.3 % (3.3-12.3); Neutrophils % 66.5 % (41.7-73.7); Nucleated Red Blood Cells % 0.2 % (0-0); Platelets 175 thou/uL (152-406); RBC Red Blood Cell Count 4.25 M/uL (4.33-5.43); Red Cell Distribution Width 14.7 % (12.1-15.2)
[2024-03-07 13:36] LABS: PT Prothrombin Time 11.4 SECONDS (9.4-12.5); PTT, Activated Partial Thromb 38.6 SECONDS (24.3-36.9); Protime INR 1.09
[2024-03-07 13:48] LABS: ALT/SGPT 17 U/L (16-61); AST/SGOT 12 U/L (15-37); Albumin 2.6 g/dL (3.4-5.0); Albumin/Globulin Ratio 0.8 (1.1-1.8); Alkaline Phosphatase 65 U/L (45-117); Anion Gap 14.6 mEq/L (5.0-15.0); BUN Blood Urea Nitrogen 13 mg/dL (7-18); Bicarbonate 21 mEq/L (21-32); Bilirubin Total 0.2 mg/dL (0.2-1.0); Globulin 3.4 g/dL (2.3-3.5); Glomerular Filtration Rate 89 ml/min (=/>90); Glucose Level 109 mg/dL (74-106); Magnesium 1.8 mg/dL (1.6-2.4); NT PRO-BNP 230 pg/mL (<450); Potassium 3.6 mEq/L (3.5-5.1); Sodium Level 140 mEq/L (136-145); Troponin High Sensitivity 4.4 pg/mL (<58.9)
--- NOTE | 2024-03-07 13:49 | RAD REPORT ---
EXAM: Chest Single View HISTORY: COUGH COMPARISON: 10/06/2022 FINDINGS: LUNGS/PLEURA: The lungs are clear. No pleural effusions or pneumothorax. No pulmonary edema. MEDIASTINUM: The mediastinal silhouette is within normal limits. CARDIAC: Mild cardiomegaly UPPER ABDOMEN: No significant abnormality. BONES: No acute abnormality. Left shoulder orthoplasty. LINES/TUBES/OTHER: N/A IMPRESSION: No evidence of acute cardiopulmonary disease.
[2024-03-07 13:51] LABS: Bilirubin Direct < 0.2 mg/dL (0-0.2)
--- NOTE | 2024-03-07 14:20 | RAD REPORT ---
EXAMINATION: CT HEAD WITHOUT CONTRAST CT CERVICAL SPINE WITHOUT CONTRAST CLINICAL INDICATION: Male, 73 years old. MENTAL STATUS CHANGE TECHNIQUE: Axial CT images from the skull base to the vertex without intravenous contrast. Axial CT i mages through the cervical spine were obtained without intravenous contrast. Sagittal and coronal reformatted images were created from the data set. Coronal and sagittal reformatted images were creat ed from the data set. One or more of the following dose reduction techniques were used: Automated exposure control, adjustment of the mA and/or kV according to patient size, and/or iterative reconstr uction. Unless otherwise specified, incidental findings do not require dedicated imaging follow-up. [id number]. COMPARISON: 01/01/2021 FINDINGS: Head: INTRACRANIAL: No acute intracranial hemorrhage. No hydrocephalus. No mass effect or midline shift. Mo derate chronic small vessel ischemic changes.Age advanced cerebral atrophy. Remote left occipital infarct. VASCULATURE: No visualized abnormalities in the arteries or dural venous sinuses. SCALP/SKULL: No significant soft tissue or osseous abnormalities. SINUSES: Mucous distention cysts in the right and left maxillary sinus. Cervical spine: ALIGNMENT: The cervical spine has normal alignment without scoliosis or spondylolisthesis. BONE: Vertebral body heights are maintained. No aggressive osseous lesions. DEGENERATIVE CHANGES: Mild cervical spondylosis including neural foraminal narrowing that is severe o n the left at C4-5. No high-grade central spinal stenosis. SOFT TISSUE: No significant abnormalities in the soft tissue of the neck. The visualized lung apices are clear. Carotid calcifications.. IMPRESSION: No acute intracranial abnormality. No acute fracture or traumatic malalignment of the cervical spine.
--- NOTE | 2024-03-07 17:04 | ER ---
Nurse's Notes [facility] Name: Mega Farnsworth Age: 73 yrs Sex: Male : 1950 Arrival Date: 03/07/2024 Time: 12:52 Bed 4 Private MD: Diagnosis: Alcohol abuse;Alcohol abuse with intoxication;Weakness;Altered mental status, unspecified Presentation: 03/07 13:03 Chief complaint: EMS states: called originally for lift assist due to intoxication. ko1 Patient would not respond upon arrival. He was in a car and had a beer in hand and a cigarette in his mouth. Coronavirus screen: At this time, the client does not indicate any symptoms associated with coronavirus-19. Ebola Screen: No symptoms or risks identified at this time. Initial Sepsis Screen: Does the patient meet any 2 criteria? No. Patient's initial sepsis screen is negative. Does the patient have a suspected source of infection? No. Patient's initial sepsis screen is negative. Risk Assessment: Do you want to hurt yourself or someone else? Patient reports no desire to harm self or others. Onset of symptoms was March 07, 2024. Care prior to arrival: Medication(s) given: Normal saline infusion, 500 mL, IV initiated. 18 GA, in the left forearm, Glucose check: 103. 13:03 Method Of Arrival: EMS: [facility] ko1 13:03 Acuity: DOMENICO 3 ko1 Triage Assessment: 13:08 General: Appears in no apparent distress. Behavior is cooperative, drowsy, Smells of ko1 alcohol. Pain: Denies pain. EENT: No deficits noted. No signs and/or symptoms were reported regarding the EENT system. Neuro: Level of Consciousness is lethargic. Cardiovascular: No deficits noted. Respiratory: No deficits noted. GI: No deficits noted. No signs and/or symptoms were reported involving the gastrointestinal system. : No deficits noted. No signs and/or symptoms were reported regarding the genitourinary system. Derm: No deficits noted. No signs and/or symptoms reported regarding the dermatologic system. Musculoskeletal: No deficits noted. No signs and/or symptoms reported regarding the musculoskeletal system. Historical: - Allergies: 13:08 NKDA; ko1 - PMHx: 13:08 Anxiety; COPD; CVA; Drug and Alcohol abuse; Hypertension; Ulcers; liver disease ko1 (Ulcers); - Immunization history:: Adult Immunizations unknown. - Social history:: Smoking status: Patient reports the use of cigarette tobacco products, unknown amount Patient uses alcohol. Screenin:10 [facility] ED Fall Risk Assessment (Adult) History of falling in the last 3 months, ko1 including since admission No falls in past 3 months (0 pts) Confusion or Disorientation No (0 pts) Intoxicated or Sedated Yes (3 pts) Impaired Gait No (0 pts) Mobility Assist Device Used No (0 pt) Altered Elimination No (0 pt) Score/Fall Risk Level 3 or more points = High Risk Oriented to surroundings, Maintained a safe environment, Educated pt \T\ family on fall prevention, incl call for assistance when getting out of bed, Assessed \T\ reinforced patient's understanding of fall precautions, Provided non-skid footwear, Hourly rounding (assess needs \T\ fall precautionary measures) done. Abuse screen: Denies threats or abuse. Denies injuries from another. Nutritional screening: No deficits noted. Tuberculosis screening: No symptoms or risk factors identified. Assessment: 13:37 Reassessment: see triage note. ko1 16:21 Reassessment: Winston Pendleotn - caregiver/friend [phone]. ld1 Vital Signs: 13:03 BP 91 / 55; Pulse 69; Resp 16; Temp 96.9; Pulse Ox 96% on R/A; ko1 15:13 BP 106 / 75; Pulse 70; Resp 14; Pulse Ox 96% on R/A; ko1 16:19 BP 102 / 67; Pulse 72; Resp 15; Pulse Ox 95% on R/A; ko1 17:53 BP 108 / 65 Supine; Pulse 62; Resp 16; Pulse Ox 99% ; ko1 17:54 BP 108 / 79 Sitting; Pulse 68; Resp 15; Pulse Ox 95% ; ko1 17:56 BP 104 / 69 Standing; Pulse 64; Resp 17; Pulse Ox 96% on R/A; ko1 Anna Coma Score: 16:58 Eye Response: spontaneous(4). Motor Response: obeys commands(6). Verbal Response: stephanie oriented(5). Total: 15. ED Course: 13:02 Patient arrived in ED. em1 13:02 Gustavo Marquez MD is Attending Physician. stephanie 13:03 Po, Ashley, RN is Primary Nurse. ko1 13:07 Triage completed. ko1 13:08 Arm band placed on right wrist. Patient placed in an exam room, on a stretcher, on ko1 monitor technician, on pulse oximetry, Patient notified of wait time. 13:10 Patient has correct armband on for positive identification. Bed in low position. Call ko1 light in reach. Side rails up X2. Adult w/ patient. Provided Education on: labs, meds. Client placed on continuous cardiac and pulse oximetry monitoring. NIBP monitoring applied. front desk monitor on. Door closed. Noise minimized. Lights dimmed. Warm blanket given. Pillow given. 13:10 Maintain EMS IV. Dressing intact. Good blood return noted. Site clean \T\ dry. Gauge \T\ ko 1 site: 18g left FA. Flushed with 10 mL NS. 13:23 Acetaminophen Sent. ko1 13:23 ETOH Level Sent. ko1 13:23 Ptt, Activated Sent. ko1 13:23 Salicylate Sent. ko1 13:23 Basic Metabolic Panel Sent. ko1 13:23 CBC with Diff Sent. ko1 13:23 LFT's Sent. ko1 13:23 Magnesium Sent. ko1 13:23 NT PRO-BNP Sent. ko1 13:23 PT-INR Sent. ko1 13:23 Troponin HS Sent. ko1 13:24 XRAY Chest (1 view) In Process Unspecified. EDMS 13:59 CT Head C Spine In Process Unspecified. EDMS 17:03 Bal Ross MD is Referral Physician. stephanie 18:04 No provider procedures requiring assistance completed. IV discontinued, intact, ko1 bleeding controlled, No redness/swelling at site. Pressure dressing applied. 18:05 Awaiting transportation. ko1 Administered Medications: 13:32 Drug: NS 0.9% IV 1000 ml IV at 1000 ml once; to be given as a bolus over 60 minutes ko1 Route: IV; Rate: 1000 ml; Site: left forearm; 14:30 Follow up: Response: No adverse reaction; IV Status: Completed infusion; IV Intake: ko1 1000ml 13:33 Drug: Banana Bag - (Multivitamin IV 1 amp, NS 0.9% IV 1000 ml, Thiamine IV 100 mg, ko1 foLIC Acid IVPB 1 mg) IV at 500 ml/hr once Route: IV; Rate: 500 ml/hr; Site: left forearm; 15:18 Follow up: Response: No adverse reaction; IV Status: Completed infusion; IV Intake: ko1 1000ml 13:33 Drug: Thiamine IV 100 mg IV at bolus once Route: IV; Rate: bolus; Site: left forearm; ko1 13:48 Follow up: Response: No adverse reaction ko1 13:48 Follow up: IV Status: Completed infusion; IV Intake: 10ml ko1 13:33 Drug: Famotidine IVP 20 mg IVP once; dilute with 10 mL 0.9% NaCl; give over 2 minutes ko1 Route: IVP; Site: left forearm; 13:48 Follow up: Response: No adverse reaction ko1 13:33 Drug: Ondansetron IVP 4 mg IVP once; over 2 minutes Route: IVP; Site: left forearm; ko1 13:48 Follow up: Response: No adverse reaction ko1 Medication: 13:10 VIS not applicable for this client. ko1 Intake: 13:48 IV: 10ml; Total: 10ml. ko1 14:30 IV: 1000ml; Total: 1010ml. ko1 15:18 IV: 1000ml; Total: 2010ml. ko1 Outcome: 17:04 Discharge ordered by MD. brown 18:04 Discharged to home via wheelchair, with friend, koCamilo 18:04 Condition: stable 18:04 Discharge instructions given to patient, friend, Instructed on discharge instructions, follow up and referral plans. Demonstrated understanding of instructions, follow-up care, 18:32 Patient left the ED. ko1 Signatures: Dispatcher [employer] Gustavo Ojeda MD MD cha Martinez, Eric em1 Janny Soriano, RN RN ld1 Ashley Fontenot, STEVO RN ko1
--- NOTE | 2024-03-07 17:04 | EDPHYS ---
Physician Documentation [facility] Name: Mega Farnsworth Age: 73 yrs Sex: Male : 1950 Arrival Date: 03/07/2024 Time: 12:52 Bed 4 Private MD: ED Physician Gustavo Marquez HPI: 03/07 16:57 This 73 yrs old Male presents to ER via EMS with complaints of Altered Mental stephanie Status. 16:57 The patient presents with confusion, decreased mental status, trouble concentrating. stephanie Onset: The symptoms/episode began/occurred 2 day(s) ago. Possible causes: alcohol, head injury, low blood sugar, sepsis. Associated signs and symptoms: Pertinent positives: confusion. Current symptoms: In the emergency department the patient's symptoms have improved, moderately. Patient's baseline: Neuro: alert and fully oriented. It is unknown whether or not the patient has had similar symptoms in the past. Historical: - Allergies: 13:08 NKDA; ko1 - PMHx: 13:08 Anxiety; COPD; CVA; Drug and Alcohol abuse; Hypertension; Ulcers; liver disease ko1 (Ulcers); - Immunization history:: Adult Immunizations unknown. - Social history:: Smoking status: Patient reports the use of cigarette tobacco products, unknown amount Patient uses alcohol. ROS: 16:58 Constitutional: Negative for fever, chills, and weight loss, Eyes: Negative for injury, stephanie pain, redness, and discharge, ENT: Negative for injury, pain, and discharge, Neck: Negative for injury, pain, and swelling, Cardiovascular: Negative for chest pain, palpitations, and edema, Respiratory: Negative for shortness of breath, cough, wheezing, and pleuritic chest pain, Abdomen/GI: Negative for abdominal pain, nausea, vomiting, diarrhea, and constipation, Back: Negative for injury and pain, : Negative for injury, bleeding, discharge, and swelling, MS/Extremity: Negative for injury and deformity, Skin: Negative for injury, rash, and discoloration, Psych: Negative for depression, anxiety, suicide ideation, homicidal ideation, and hallucinations, Allergy/Immunology: Negative for hives, rash, and allergies, Endocrine: Negative for neck swelling, polydipsia, polyuria, polyphagia, and marked weight changes, Hematologic/Lymphatic: Negative for swollen nodes, abnormal bleeding, and unusual bruising, 16:58 Neuro: Positive for altered mental status, dizziness, gait disturbance, weakness, Exam: 16:58 Constitutional: This is a well developed, well nourished patient who is awake, alert, stephanie and in no acute distress. Head/Face: Normocephalic, atraumatic. Eyes: Pupils equal round and reactive to light, extra-ocular motions intact. Lids and lashes normal. Conjunctiva and sclera are non-icteric and not injected. Cornea within normal limits. Periorbital areas with no swelling, redness, or edema. ENT: Nares patent. No nasal discharge, no septal abnormalities noted. Tympanic membranes are normal and external auditory canals are clear. Oropharynx with no redness, swelling, or masses, exudates, or evidence of obstruction, uvula midline. Mucous membranes moist. Neck: Trachea midline, no thyromegaly or masses palpated, and no cervical lymphadenopathy. Supple, full range of motion without nuchal rigidity, or vertebral point tenderness. No Meningismus. Chest/axilla: Normal chest wall appearance and motion. Nontender with no deformity. No lesions are appreciated. Cardiovascular: Regular rate and rhythm with a normal S1 and S2. No gallops, murmurs, or rubs. Normal PMI, no JVD. No pulse deficits. Respiratory: Lungs have equal breath sounds bilaterally, clear to auscultation and percussion. No rales, rhonchi or wheezes noted. No increased work of breathing, no retractions or nasal flaring. Abdomen/GI: Soft, non-tender, with normal bowel sounds. No distension or tympany. No guarding or rebound. No evidence of tenderness throughout. Back: No spinal tenderness. No costovertebral tenderness. Full range of motion. Skin: Warm, dry with normal turgor. Normal color with no rashes, no lesions, and no evidence of cellulitis. MS/ Extremity: Pulses equal, no cyanosis. Neurovascular intact. Full, normal range of motion., bilateral aka Neuro: Awake and alert, GCS 15, oriented to person, place, time, and situation. Cranial nerves II-XII grossly intact. Motor strength 5/5 in all extremities. Sensory grossly intact. Cerebellar exam normal. Normal gait. Psych: Awake, alert, with orientation to person, place and time. Behavior, mood, and affect are within normal limits. 16:58 ECG was reviewed by the Attending Physician. 16:58 Musculoskeletal/extremity: DVT Exam: No signs of deep vein thrombosis. no pain, no swelling, no tenderness, negative Homans' sign noted on exam, no appreciated bluish discoloration, no erythema, no increased warmth, 16:58 Neuro: Orientation: is normal, appropriate for stated age, no acute changes, Mentation: is normal, appropriate for stated age, no acute changes, Memory: is normal, appropriate for stated age, no acute changes, Cranial nerves: grossly normal, is grossly normal based on the patient's age, no acute changes, Cerebellar function: is grossly normal, is grossly normal based on the patient's age, no acute changes, Motor: is normal, is grossly normal based on the patient's age, Sensation: is normal, no obvious gross deficits, appropriate no acute changes, Gait: not tested. Deep tendon reflexes are 2+ (normal) in the bilateral brachioradialis, bicep, tricep and patellar and Achilles tendons, seizure activity, is not displayed by the patient, Vital Signs: 13:03 BP 91 / 55; Pulse 69; Resp 16; Temp 96.9; Pulse Ox 96% on R/A; ko1 15:13 BP 106 / 75; Pulse 70; Resp 14; Pulse Ox 96% on R/A; ko1 16:19 BP 102 / 67; Pulse 72; Resp 15; Pulse Ox 95% on R/A; ko1 17:53 BP 108 / 65 Supine; Pulse 62; Resp 16; Pulse Ox 99% ; ko1 17:54 BP 108 / 79 Sitting; Pulse 68; Resp 15; Pulse Ox 95% ; ko1 17:56 BP 104 / 69 Standing; Pulse 64; Resp 17; Pulse Ox 96% on R/A; ko1 Anna Coma Score: 16:58 Eye Response: spontaneous(4). Motor Response: obeys commands(6). Verbal Response: stephanie oriented(5). Total: 15. MDM: 13:02 Medical Screening Exam initiated stephanie 17:00 Differential Diagnosis altered mental status, sepsis, flu. Differential Diagnosis: CVA, stephanie electrolyte abnormality, alcohol intoxication, hypoglycemia, intracranial bleed, meningitis, overdose, pneumonia, seizure, sepsis, TIA, UTI, volume depletion. Data reviewed: vital signs, nurses notes, EMS record, lab test result(s), EKG, radiologic studies, CT scan, plain films. Consideration of Admission/Observation Escalation of care including admission/observation considered. I considered the following discharge prescriptions or medication management in the emergency department Medications were administered in the Emergency Department. See MAR. Independent interpretation of the following test(s) in the Emergency Department EKG: See my EKG interpretation above. Test considered but Not performed: MRI: no mri brain. Historians other than the Patient: EMS: ems well informed. Care significantly affected by the following chronic conditions: Hypertension, Chronic Obstructive Pulmonary Disease, Obesity, Liver Disease, alcoholic, anxiety. Counseling: I had a detailed discussion with the patient and/or guardian regarding the historical points, exam findings, and any diagnostic results supporting the discharge/admit diagnosis, lab results, radiology results, the need for outpatient follow up, for definitive care, a family practitioner, a psychiatrist. 03/07 13:04 Order name: Basic Metabolic Panel; Complete Time: 16:53 03/07 13:04 Order name: CBC with Diff; Complete Time: 16:53 03/07 13:04 Order name: LFT's; Complete Time: 16:53 03/07 13:04 Order name: Magnesium; Complete Time: 16:53 03/07 13:04 Order name: NT PRO-BNP; Complete Time: 16:53 03/07 13:04 Order name: PT-INR; Complete Time: 16:53 03/07 13:04 Order name: Troponin HS; Complete Time: 16:53 03/07 13:04 Order name: Acetaminophen; Complete Time: 16:53 03/07 13:04 Order name: ETOH Level; Complete Time: 16:53 03/07 13:04 Order name: Ptt, Activated; Complete Time: 16:53 03/07 13:04 Order name: Salicylate; Complete Time: 16:53 03/07 13:04 Order name: XRAY Chest (1 view); Complete Time: 16:53 03/07 13:04 Order name: CT Head C Spine; Complete Time: 16:53 03/07 13:04 Order name: EKG; Complete Time: 13:05 03/07 13:04 Order name: Cardiac monitoring; Complete Time: 13:12 03/07 13:04 Order name: EKG - Nurse/Tech; Complete Time: 13:12 [facility] 03/07 13:04 Order name: IV Saline Lock; Complete Time: 13: [facility] 03/07 13:04 Order name: Labs collected and sent; Complete Time: 13: [facility] 03/07 13:04 Order name: O2 Per Protocol; Complete Time: 13: [facility] 03/07 13:04 Order name: O2 Sat Monitoring; Complete Time: 13: [facility] 03/07 13:04 Order name: Suicide Screening ([place]); Complete Time: 13: [facility] 03/07 17:02 Order name: Orthostatics; Complete Time: 17:57 [facility] EC:58 Rate is 70 beats/min. Rhythm is regular. QRS Owen is Normal. WA interval is prolonged stephanie at 222 msec. QRS interval is normal. QT interval is normal. No Q waves. T waves are Normal. No ST changes noted. Clinical impression: NSR w/ Non-specific ST/T Changes and No evidence of ischemia. Interpreted by me. Reviewed by me. Administered Medications: 13:32 Drug: NS 0.9% IV 1000 ml IV at 1000 ml once; to be given as a bolus over 60 minutes ko1 Route: IV; Rate: 1000 ml; Site: left forearm; 14:30 Follow up: Response: No adverse reaction; IV Status: Completed infusion; IV Intake: ko1 1000ml 13:33 Drug: Banana Bag - (Multivitamin IV 1 amp, NS 0.9% IV 1000 ml, Thiamine IV 100 mg, ko1 foLIC Acid IVPB 1 mg) IV at 500 ml/hr once Route: IV; Rate: 500 ml/hr; Site: left forearm; 15:18 Follow up: Response: No adverse reaction; IV Status: Completed infusion; IV Intake: ko1 1000ml 13:33 Drug: Thiamine IV 100 mg IV at bolus once Route: IV; Rate: bolus; Site: left forearm; ko1 13:48 Follow up: Response: No adverse reaction ko1 13:48 Follow up: IV Status: Completed infusion; IV Intake: 10ml ko1 13:33 Drug: Famotidine IVP 20 mg IVP once; dilute with 10 mL 0.9% NaCl; give over 2 minutes ko1 Route: IVP; Site: left forearm; 13:48 Follow up: Response: No adverse reaction ko1 13:33 Drug: Ondansetron IVP 4 mg IVP once; over 2 minutes Route: IVP; Site: left forearm; ko1 13:48 Follow up: Response: No adverse reaction ko1 Disposition Summary: 03/07/24 17:04 Discharge Ordered Notes: Location: Home stephanie Problem: new stephanie Symptoms: have improved stephanie Condition: Stable stephanie Diagnosis - Alcohol abuse stephanie - Alcohol abuse with intoxication stephanie - Weakness stephanie - Altered mental status, unspecified stephanie Followup: stephanie - With: Private Physician - When: 2 - 3 days - Reason: Recheck today's complaints, Continuance of care, Re-evaluation by your physician Followup: stephanie - With: Bal Ross MD - When: 2 - 3 days - Reason: Recheck today's complaints, Re-evaluation by your physician Discharge Instructions: - Discharge Summary Sheet stephanie - Alcohol Intoxication stephanie - Weakness stephanie - Fatigue stephanie - Alcohol Intoxication, [id number] stephanie - Alcohol Abuse and Nutrition stephanie - Fall Prevention in the Home, Adult, [id number] stephanie - Weakness, [id number] stephanie - Alcoholic Liver Disease stephanie - Deconditioning stephanie Forms: - Medication Reconciliation Form stephanie - Antibiotic Education stephanie - Prescription Opioid Use stephanie - Patient Portal Instructions stephanie - Leadership Thank You Letter stephanie Signatures: Dispatcher [employer] EDGustavo Larios MD MD cha Oliver, Kathy, RN RN ko1 Corrections: (The following items were deleted from the chart) 13:05 13:05 BASIC METABOLIC PANEL+C.LAB.BRZ ordered. EDMS EDMS 13:05 13:05 CBC+H.LAB.BRZ ordered. EDMS EDMS 13:05 13:05 HEPATIC FUNCTION+C.LAB.BRZ ordered. EDMS EDMS 13:05 13:05 MAGNESIUM+C.LAB.BRZ ordered. EDMS EDMS 13:05 13:05 PROBNP+C.LAB.BRZ ordered. EDMS EDMS 13:05 13:05 PROTIME (+INR)+COAG.LAB.BRZ ordered. EDMS EDMS 13:05 13:05 Troponin High Sensitivity+C.LAB.BRZ ordered. EDMS EDMS 13:05 13:05 ACETAMINOPHEN+C.LAB.BRZ ordered. EDMS EDMS 13:05 13:05 ETHANOL+C.LAB.BRZ ordered. EDMS EDMS 13:05 13:05 PTT, ACTIVATED+COAG.LAB.BRZ ordered. EDMS EDMS 13:05 13:05 SALICYLATE+C.LAB.BRZ ordered. EDMS EDMS 13:05 13:05 Urinalysis+U.LAB.BRZ ordered. EDMS EDMS 13:05 13:05 URINE DRUG SCREEN+UC.LAB.BRZ ordered. EDMS EDMS
[2024-03-07 18:58] VITALS: TEMP 96.9
[2024-03-07 19:05] VITALS: BP 104/69; O2SAT 96
== END 2024-03-07 18:32 | disposition home or self-care (01) ==
LOC: ER 12:52
DX: F10.129 Alcohol abuse with intoxication, unspecified (principal); R41.82 Altered mental status, unspecified; R53.1 Weakness; I10 Essential (primary) hypertension; J44.9 Chronic obstructive pulmonary disease, unspecified; F17.210 Nicotine dependence, cigarettes, uncomplicated; Z86.73 Personal history of transient ischemic attack (TIA), and cerebral infarction without residual deficits
CPT/HCPCS: 96365; 85025; 80048; 36415; 83735; 85610; 80076; 85730; 84484; 83880; 70450; 72125; 71045; 96375; 99285; 96366; 80143; 80179; 82077; J3411; J2405; J7030; 93005

== ENCOUNTER 2024-05-29 11:47 | Emergency (ER) | payer OTHER ==
--- NOTE | 2024-05-29 12:16 | RAD REPORT ---
EXAM: CT Ct Stroke Brain Wo Cont HISTORY: STROKE ALERT COMPARISON: 03/07/2024 and 03/31/2019 TECHNIQUE: Multiple contiguous axial images were obtained for a CT of the brain without contrast. Sag ittal and coronal reformats were performed. One or more of the following dose reduction techniques were used: Automated exposure control, adjus tment of the mA and kV according to patient size, and iterative reconstruction. Unless otherwise specified, incidental findings do not require dedicated imaging follow-up. FINDINGS: No evidence of hydrocephalus, intracranial hemorrhage, or extra-axial fluid collection. Left parietal cortical/subcortical region of encephalomalacia, and other moderate nonspecific periven tricular and deep white matter hypodensities, suggestive of chronic microvascular ischemic changes, overall stable. . Mild to moderate central predominant volume loss with stable ventricular caliber. The calvarium is intact. The visualized paranasal sinuses and mastoid air cells are essentially clear . IMPRESSION: No evidence of acute intracranial abnormality. Stable chronic findings as above. THIS REPORT CONTAINS FINDINGS THAT MAY BE CRITICAL TO PATIENT CARE. The findings were verbally commun icated via telephone to Gustavo Marquez M.D. on 05/29/2024 12:14 PM.
[2024-05-29 12:27] LABS: Absolute Eosinophils 0.2 K/uL (0-0.5); Absolute Lymphocytes (CBC) 1.7 K/uL (0.7-4.9); Absolute Monocytes 0.7 K/uL (0.1-1.3); Basophils % 0.9 % (0-1.3); Eosinophils % 3.2 % (0-4.4); Hematocrit 41.1 % (39.6-49.0); Hemoglobin 13.9 g/dL (13.6-17.9); Lymphocytes % 30.7 % (15.3-44.8); MCH 31.2 pg (27.0-35.0); MCHC 33.8 g/dL (32.0-36.0); MCV 92.5 fL (80-100); MPV 8.1 fL (7.6-11.3); Monocytes % 12.4 % (3.3-12.3); Neutrophils % 52.8 % (41.7-73.7); Nucleated Red Blood Cells % 0.1 % (0-0); Platelets 154 thou/uL (152-406); RBC Red Blood Cell Count 4.45 M/uL (4.33-5.43); Red Cell Distribution Width 16.1 % (12.1-15.2)
[2024-05-29 12:45] LABS: ALT/SGPT 19 U/L (16-61); AST/SGOT 21 U/L (15-37); Albumin 2.9 g/dL (3.4-5.0); Albumin/Globulin Ratio 0.9 (1.1-1.8); Alkaline Phosphatase 67 U/L (45-117); Anion Gap 14.6 mEq/L (5.0-15.0); BUN Blood Urea Nitrogen 10 mg/dL (7-18); Bicarbonate 24 mEq/L (21-32); Bilirubin Direct < 0.2 mg/dL (0-0.2); Bilirubin Indirect, Calculated 0.1 mg/dL (0.2-0.8); Bilirubin Total 0.3 mg/dL (0.2-1.0); Globulin 3.4 g/dL (2.3-3.5); Glomerular Filtration Rate 63 ml/min (=/>90); Glucose Level 95 mg/dL (74-106); Magnesium 1.7 mg/dL (1.6-2.4); Potassium 3.6 mEq/L (3.5-5.1); Protein, Total 6.3 g/dL (6.4-8.2); Sodium Level 139 mEq/L (136-145); Troponin High Sensitivity 11.9 pg/mL (<58.9)
[2024-05-29 12:57] LABS: Barbiturates NEGATIVE (NEGATIVE); Benzodiazepines NEGATIVE (NEGATIVE); Cocaine NEGATIVE (NEGATIVE); METHAMPHETAM NEGATIVE (NEGATIVE); Methadone NEGATIVE (NEGATIVE); Opiates NEGATIVE (NEGATIVE); Phencyclidine NEGATIVE (NEGATIVE); THC Cannibis NEGATIVE (NEGATIVE)
[2024-05-29 13:21] LABS: PTT, Activated Partial Thromb 29.6 SECONDS (27.2-37.4); Protime INR 1.06
[2024-05-29] MEDS ORDERED: NA CHLORIDE 0.9% 1,000 ML ONE (13:21)
--- NOTE | 2024-05-29 13:28 | RAD REPORT ---
EXAMINATION: ONE VIEW CHEST XR CLINICAL INDICATION: stroke TECHNIQUE: Frontal chest projection is submitted. Examination is limited by patient positioning and t echnique. COMPARISON: 03/07/2024 FINDINGS: Probable calcified pleural plaque in the right upper lobe. Lungs otherwise clear. The heart is upper limit of normal in size. No displaced fractures identified. Left shoulder arthroplasty. IMPRESSION: No acute intrathoracic abnormalities.
--- NOTE | 2024-05-29 16:27 | EDPHYS ---
Physician Documentation [facility] Name: Mega Farnsworth Age: 73 yrs Sex: Male : 1950 Arrival Date: 05/29/2024 Time: 11:47 Bed 2 Private MD: ED Physician Marco Chavarria HPI: 05/29 12:26 Chief Complaint: Right-sided weakness and slurred speech. History of Present Illness: jr11 The patient is a 73-year-old male who was completely normal 30 minutes prior to the onset of symptoms. He now presents with right-sided weakness and slurred speech. The caregiver reported that the patient was unable to sit up straight in a restaurant [place] [employer] and was leaning to the right. Upon standing, his right side was weaker than his left, with reduced early intervention school psychologist strength on the right. He was previously alert and oriented times four but is now only alert and oriented times one. The patient denies pain and does not recall the events leading up to the onset of symptoms. Blood pressure upon arrival was 91/76, with a heart rate in the 80s and sinus rhythm with a right bundle branch block. Blood sugar was 103. The patient has a known history of hypertension. Review of Systems: - Positive for weakness on the right side, slurred speech. - Negative for pain, loss of consciousness, or other neurological symptoms. - ROS otherwise negative. . Historical: - Allergies: 12:40 NKDA; ap3 - PMHx: 12:40 Anxiety; COPD; CVA; Drug and Alcohol abuse; Hypertension; Liver disease (Ulcers); ap3 Ulcers; - Immunization history:: Adult Immunizations up to date. - Infectious Disease History:: Denies. - Social history:: Smoking status: Patient reports the use of cigarette tobacco products, smokes two packs cigarettes per day. Exam: 12:26 Constitutional: This is a well developed, well nourished patient who is awake, alert, jr11 and in no acute distress. Head/Face: Normocephalic, atraumatic. Eyes: Extra-ocular motions intact. Lids and lashes normal. Conjunctiva and sclera are non-icteric and not injected. Cornea within normal limits. Periorbital areas with no swelling, redness, or edema. ENT: Nares patent. No nasal discharge, no septal abnormalities noted. Oropharynx with no redness, swelling, or masses, exudates, or evidence of obstruction, uvula midline. Mucous membranes moist. Skin: Warm, dry with normal turgor. Normal color with no rashes, no lesions, and no evidence of cellulitis. MS/ Extremity: Pulses equal, no cyanosis. Neurovascular intact. Full, normal range of motion. Vital Signs: 11:48 BP 91 / 76; Pulse 86; Resp 18; Pulse Ox 98% on R/A; Weight 97.98 kg; ap3 11:50 BP 105 / 74; Pulse 86; Resp 18; Pulse Ox 97% on R/A; ld1 12:15 BP 101 / 70; Pulse 85; Resp 19; Pulse Ox 96% on R/A; ld1 12:32 BP 98 / 72; Pulse 80; Resp 19; Pulse Ox 98% on R/A; ld1 12:51 Temp 97.4; ap3 13:46 BP 108 / 75; Pulse 66; Resp 17; Pulse Ox 92% on R/A; ld1 14:18 BP 115 / 76; Pulse 65; Resp 16; Pulse Ox 96% on R/A; ap3 14:51 BP 117 / 74; Pulse 66; Resp 17; Pulse Ox 94% on R/A; ap3 14:52 BP 117 / 74; Pulse 68; Resp 17; Pulse Ox 93% on R/A; ld1 15:25 BP 119 / 78; Pulse 71; Resp 17; Pulse Ox 98% ; ap3 16:09 BP 124 / 78; Pulse 77; Resp 17; Pulse Ox 96% on R/A; ap3 16:25 BP 123 / 68; Pulse 72; Resp 17; Pulse Ox 96% ; ap3 16:57 BP 118 / 72; Pulse 68; Resp 17; Pulse Ox 98% ; ap3 NIH Stroke Scale Scores: 12:37 NIHSS Score: 1 ap3 MDM: 11:54 Medical Screening Exam initiated jr11 12:26 ED course: EKG interpreted by me shows normal sinus rhythm, normal axis, prolonged DC jr11 at 202 otherwise right bundle branch morphology without any acute ST changes. 12:26 Differential Diagnosis: Medical Decision Makin. Stroke 2. Transient Ischemic Attack jr11 (TIA) 3. Sepsis 4. Hypoglycemia (less likely but life-threatening) Plan: - Initiate stroke protocol. - Continue intravenous fluids to address hypotension. - Complete sepsis workup due to hypotension. - Monitor vital signs and neurological status closely. - Obtain a comprehensive medication list and additional history from the caregiver. - Consult neurology for further evaluation and management. . 16:25 ED course: Lactic acidosis likely secondary to ethanol, blood pressures normal no [facility] source of infection, absolutely no concern for sepsis severe sepsis or septic shock. Patient ambulatory in the hallway without any difficulty, denies any pain, would like to go home.. 16:27 Data reviewed: CT head, no stroke to my read. [facility] 05/29 11:55 Order name: Basic Metabolic Panel; Complete Time: 13:27 [facility] 05/29 11:55 Order name: CBC with Diff; Complete Time: 13: [facility] 05/29 11:55 Order name: Hepatic Function; Complete Time: : [facility] 05/29 11:55 Order name: High Sensitivity Troponin; Complete Time: 13: [facility] 05/29 11:55 Order name: Magnesium; Complete Time: 13: [facility] 05/29 11:55 Order name: Protime (+inr); Complete Time: 13: [facility] 05/29 11:55 Order name: Ptt, Activated; Complete Time: 13: [facility] 05/29 11:55 Order name: UDS; Complete Time: 13: [facility] 05/29 11:55 Order name: Blood Culture Adult (2) [facility] 05/29 11:55 Order name: Lactate w/ 2H reflex if indic.; Complete Time: 13:27 [facility] 05/29 11:55 Order name: Ethanol; Complete Time: 13:27 [facility] 05/29 12:26 Order name: Glucose, Ancillary Testing; Complete Time: 13:27 [facility] 05/29 12:53 Order name: Ghost Lactate-NO COLLECT Timer; Complete Time: 15:13 [facility] 05/29 15:43 Order name: Lactate Sepsis 2 HR Follow-up; Complete Time: 15:54 [facility] 05/29 11:55 Order name: CT Stroke Brain w/o Contrast; Complete Time: 13:27 [facility] 05/29 11:55 Order name: Stroke CXR 1 View; Complete Time: 13:46 [facility] 05/29 11:55 Order name: Accucheck; Complete Time: 12:36 [facility] 05/29 11:55 Order name: Cardiac monitoring; Complete Time: 12:36 05/29 11:55 Order name: EKG - Nurse/Tech; Complete Time: 12:36 05/29 11:55 Order name: IV Saline Lock; Complete Time: 12:37 05/29 11:55 Order name: Labs collected and sent; Complete Time: 12:37 05/29 11:55 Order name: NPO; Complete Time: 12:37 05/29 11:55 Order name: O2 Per Protocol; Complete Time: 12:37 05/29 11:55 Order name: O2 Sat Monitoring; Complete Time: 12:37 05/29 11:55 Order name: Stroke Swallow Screen; Complete Time: 13:58 Administered Medications: 13:26 Drug: NS 0.9% IV 1000 ml IV at 1000 ml once; to be given as a bolus over 60 minutes ap3 Route: IV; Rate: 1000 ml; Site: right forearm; 14:26 Follow up: IV Status: Completed infusion; IV Intake: 1000ml ap3 Disposition Summary: 05/29/24 16:26 Discharge Ordered Notes: Location: Home [facility] Condition: Stable jr11 Diagnosis - Dehydration jr11 - Alcohol abuse with intoxication jr11 Followup: [facility] - With: Private Physician - When: 2 - 3 days - Reason: Re-evaluation by your physician Discharge Instructions: - Discharge Summary Sheet jr11 - Alcohol Intoxication jr11 - Dehydration, Elderly jr11 Forms: - Medication Reconciliation Form jr11 - Antibiotic Education jr11 - Prescription Opioid Use jr11 - Patient Portal Instructions jr11 - Leadership Thank You Letter [facility] NIH Stroke Scale - NIH Stroke Score Date: 05/29/2024 Time: 12:37 Total Score = 1 10. Dysarthria (speech clarity - read or repeat words) - 0(Normal) 11. Extinction and Inattention (visual/tactile/auditory/spatial/personal) - 0(No abnormality) 1a. Level of Consciousness (LOC) - 0(Alert) 1b. Level of Consciousness (LOC) (Month \T\ Age) - 0(Both) 1c. LOC Commands (Open \T\ Closes Eyes/Button Machine Operator) - 0(Both) 2. Best Gaze (Lateral Gaze Paresis) - 0(Normal) 3. Visual Field Loss - 0(No visual loss) 4. Facial Palsy - 0(Normal) 5a. Left Arm: Motor (10-second hold) - 1(Drift) 5b. Right Arm: Motor (10-second hold) - 0(No drift) 6a. Left Leg: Motor (5-second hold - always test supine) - 0(No drift) 6b. Right Leg: Motor (5-second hold - always test supine) - 0(No drift) 7. Limb Ataxia (finger/nose \T\ heel/landeros - test with eyes open) - 0(Absent) 8. Sensory Loss (pinprick arms/legs/face) - 0(Normal) 9. Best Language: Aphasia (description/naming/reading) - 0(No aphasia) Initials: ap3 Signatures: Dispatcher [employer] EDMS Suzie Martinez RN RN ap3 Marco Chavarria MD MD jr11 Corrections: (The following items were deleted from the chart) 11:56 11:56 BASIC METABOLIC PANEL+C.LAB.BRZ ordered. EDMS EDMS 11:56 11:56 CBC+H.LAB.BRZ ordered. EDMS EDMS 11:56 11:56 HEPATIC FUNCTION+C.LAB.BRZ ordered. EDMS EDMS 11:56 11:56 Troponin High Sensitivity+C.LAB.BRZ ordered. EDMS EDMS 11:56 11:56 MAGNESIUM+C.LAB.BRZ ordered. EDMS EDMS 11:56 11:56 PROTIME (+INR)+COAG.LAB.BRZ ordered. EDMS EDMS 11:56 11:56 PTT, ACTIVATED+COAG.LAB.BRZ ordered. EDMS EDMS 11:56 11:56 URINE DRUG SCREEN+UC.LAB.BRZ ordered. EDMS EDMS 11:56 11:56 BLOOD CULTURE*+BA.LAB.BRZ ordered. EDMS EDMS 11:56 11:56 LACTATE+C.LAB.BRZ ordered. EDMS EDMS 11:56 11:56 ETHANOL+C.LAB.BRZ ordered. EDMS EDMS 11:56 11:56 CT-STROKE BRAIN W/O CONTRAST+CT.RAD.BRZ ordered. EDMS EDMS 11:56 11:56 Chest Single View+RAD.RAD.BRZ ordered. EDMS EDMS 13:27 13:27 Urinalysis W/Microscopic+U.LAB.BRZ ordered. EDMS EDMS
--- NOTE | 2024-05-29 16:27 | ER ---
Nurse's Notes [facility] Name: Mega Farnsworth Age: 73 yrs Sex: Male : 1950 Arrival Date: 05/29/2024 Time: 11:47 Bed 2 Private MD: Diagnosis: Dehydration;Alcohol abuse with intoxication Presentation: 05/29 11:48 Method Of Arrival: EMS: [facility] ap3 11:48 Chief complaint: EMS states: patient was out to eat with family when he started leaning ap3 to the right and "slurring his speech." EMS reports last known normal was approx 1115 05/29/2024. Coronavirus screen: At this time, the client does not indicate any symptoms associated with coronavirus-19. Ebola Screen: No symptoms or risks identified at this time. Risk Assessment: Do you want to hurt yourself or someone else? Patient reports no desire to harm self or others. Onset of symptoms was May 29, 2024 at 11:15. Care prior to arrival: Medication(s) given: Normal saline infusion, 1000 mL, IV initiated. 20 GA, in the left forearm. 11:48 Acuity: DOMENICO 2 ap3 16:11 Initial Sepsis Screen: Does the patient meet any 2 criteria? No. Patient's initial ap3 sepsis screen is negative. Does the patient have a suspected source of infection? No. Patient's initial sepsis screen is negative. Triage Assessment: 11:48 General: Appears comfortable, Behavior is calm. Pain: Denies pain. Neuro: Level of ap3 Consciousness is awake, alert, Oriented to person, uknown if this is baseline at this time. Neuro: EMS reports patients family was reporting that patients speech is "not normal to the patient." patient is able to give name and date of at this time. . Cardiovascular: Patient's skin is warm and dry. Respiratory: Airway is patent Respiratory effort is even, unlabored, Respiratory pattern is regular, symmetrical. Historical: - Allergies: 12:40 NKDA; ap3 - PMHx: 12:40 Anxiety; COPD; CVA; Drug and Alcohol abuse; Hypertension; Liver disease (Ulcers); ap3 Ulcers; - Immunization history:: Adult Immunizations up to date. - Infectious Disease History:: Denies. - Social history:: Smoking status: Patient reports the use of cigarette tobacco products, smokes two packs cigarettes per day. Screenin:37 Abuse screen: Denies threats or abuse. Nutritional screening: No deficits noted. ap3 Tuberculosis screening: No symptoms or risk factors identified. 13:57 [place] Swallow Protocol Brief Cognitive Screen What is your name? Normal, Where are you ap3 right now? Normal, What year is it? Normal. Oral Mechanism Examination Facial Symmetry: Normal, Motion: Normal, Lip Closure: Normal, Oral Mechanism Result: Normal. 3 oz Water Swallow Challenge: Pt able to drink all water without stopping, coughing, choking or throat clearing: Yes Result: PASS Notified: Marco Chavarria MD. 14:00 [facility] ED Fall Risk Assessment (Adult) History of falling in the last 3 months, ap3 including since admission Yes- fall prone (multiple falls) (3 pts) Confusion or Disorientation Yes (5 pts) Intoxicated or Sedated Yes (3 pts) Impaired Gait Yes (1 pt) Mobility Assist Device Used No (0 pt) Altered Elimination No (0 pt) Score/Fall Risk Level 3 or more points = High Risk Oriented to surroundings, Maintained a safe environment, Educated pt \\T\\ family on fall prevention, incl call for assistance when getting out of bed, Assessed \\T\\ reinforced patient's understanding of fall precautions, Provided non-skid footwear, Hourly rounding (assess needs \\T\\ fall precautionary measures) done, Apply high fall risk patient identification: yellow non skid footwear/ fall signage, Remained w/in arm's length of patient and in sight while toileting, Offered frequent toileting (1:1 observation), Utilized family, sitter, or virtual csm consultant as indicated. Assessment: 11:48 Reassessment: code stroke called at 1148. patient transported to CT via stretcher, on ap3 monitor with STEVO Ziegler. 14:50 Reassessment: Patient and/or family updated on plan of care and expected duration. Pain ap3 level reassessed. Patient is alert, oriented x 3, equal unlabored respirations, skin warm/dry/pink. General: Appears comfortable, Behavior is calm, cooperative, appropriate for age. Neuro: Level of Consciousness is awake, alert, obeys commands, Oriented to person, place, Appropriate for age. 16:20 General: ambulated patient in hallway with independent living specialistAlexander Mcadams. patient tolerated well. ap3 patient denies dizziness or nausea upon standing or ambulation. provider notified. . Vital Signs: 11:48 BP 91 / 76; Pulse 86; Resp 18; Pulse Ox 98% on R/A; Weight 97.98 kg; ap3 11:50 BP 105 / 74; Pulse 86; Resp 18; Pulse Ox 97% on R/A; ld1 12:15 BP 101 / 70; Pulse 85; Resp 19; Pulse Ox 96% on R/A; ld1 12:32 BP 98 / 72; Pulse 80; Resp 19; Pulse Ox 98% on R/A; ld1 12:51 Temp 97.4; ap3 13:46 BP 108 / 75; Pulse 66; Resp 17; Pulse Ox 92% on R/A; ld1 14:18 BP 115 / 76; Pulse 65; Resp 16; Pulse Ox 96% on R/A; ap3 14:51 BP 117 / 74; Pulse 66; Resp 17; Pulse Ox 94% on R/A; ap3 14:52 BP 117 / 74; Pulse 68; Resp 17; Pulse Ox 93% on R/A; ld1 15:25 BP 119 / 78; Pulse 71; Resp 17; Pulse Ox 98% ; ap3 16:09 BP 124 / 78; Pulse 77; Resp 17; Pulse Ox 96% on R/A; ap3 16:25 BP 123 / 68; Pulse 72; Resp 17; Pulse Ox 96% ; ap3 16:57 BP 118 / 72; Pulse 68; Resp 17; Pulse Ox 98% ; ap3 NIH Stroke Scale Scores: 12:37 NIHSS Score: 1 ap3 ED Course: 11:50 Patient arrived in ED. eb 11:53 Marco Chavarria MD is Attending Physician. jr11 12:05 CT Stroke Brain w/o Contrast In Process Unspecified. EDMS 12:15 Inserted saline lock: 20 gauge in right forearm, using aseptic technique. Blood ld1 collected. Flushed with 10 mL NS. 12:15 Maintain EMS IV. Dressing intact. Good blood return noted. Site clean \\T\\ dry. Gauge \\T\\ ld 1 site: 20G LFA. 12:18 EKG done, by ED staff, reviewed by Marco Chavarria MD. aa5 12:31 Suzie Martinez, STEVO is Primary Nurse. ap3 12:34 Triage completed. ap3 12:36 Blood Culture Adult (2) Sent. ld1 12:36 Lactate w/ 2H reflex if indic. Sent. ld1 12:37 UDS Sent. ld1 12:38 Arm band placed on right wrist. ap3 12:38 Client placed on continuous cardiac and pulse oximetry monitoring. NIBP monitoring ap3 applied. monitor car operator on. Pulse ox on. NIBP on. 12:41 Patient has correct armband on for positive identification. Placed in gown. Bed in low ap3 position. Call light in reach. Side rails up X2. Adult w/ patient. 13:15 Stroke CXR 1 View In Process Unspecified. EDMS 16:10 No provider procedures requiring assistance completed. ap3 16:11 Provided Education on: fall risk education. ap3 16:56 IV discontinued, intact, bleeding controlled, No redness/swelling at site. Pressure ap3 dressing applied. Administered Medications: 13:26 Drug: NS 0.9% IV 1000 ml IV at 1000 ml once; to be given as a bolus over 60 minutes ap3 Route: IV; Rate: 1000 ml; Site: right forearm; 14:26 Follow up: IV Status: Completed infusion; IV Intake: 1000ml ap3 Medication: 16:11 VIS not applicable for this client. ap3 Intake: 14:26 IV: 1000ml; Total: 1000ml. ap3 Outcome: 16:26 Discharge ordered by MD. townsend 16:56 Discharged to home via wheelchair, with friend, ap3 16:56 Condition: good 16:56 Discharge instructions given to patient, friend, Instructed on discharge instructions, follow up and referral plans. Demonstrated understanding of instructions, follow-up care, 16:57 Patient left the ED. ap3 NIH Stroke Scale - NIH Stroke Score Date: 05/29/2024 Time: 12:37 Total Score = 1 10. Dysarthria (speech clarity - read or repeat words) - 0(Normal) 11. Extinction and Inattention (visual/tactile/auditory/spatial/personal) - 0(No abnormality) 1a. Level of Consciousness (LOC) - 0(Alert) 1b. Level of Consciousness (LOC) (Month \\T\\ Age) - 0(Both) 1c. LOC Commands (Open \\T\\ Closes Eyes/Director Private) - 0(Both) 2. Best Gaze (Lateral Gaze Paresis) - 0(Normal) 3. Visual Field Loss - 0(No visual loss) 4. Facial Palsy - 0(Normal) 5a. Left Arm: Motor (10-second hold) - 1(Drift) 5b. Right Arm: Motor (10-second hold) - 0(No drift) 6a. Left Leg: Motor (5-second hold - always test supine) - 0(No drift) 6b. Right Leg: Motor (5-second hold - always test supine) - 0(No drift) 7. Limb Ataxia (finger/nose \\T\\ heel/landeros - test with eyes open) - 0(Absent) 8. Sensory Loss (pinprick arms/legs/face) - 0(Normal) 9. Best Language: Aphasia (description/naming/reading) - 0(No aphasia) Initials: ap3 Signatures: Dispatcher [employer] Karlie Avila, RN RN aa5 Suzie Martinez RN RN ap3 Elli Sanches Lauren, RN RN ld1 Marco Chavarria MD MD jr11
[2024-05-29 17:25] VITALS: TEMP 97.4
[2024-05-29 17:34] VITALS: BP 118/72; O2SAT 98
--- NOTE | 2024-06-01 10:57 | EKG ---
Test Date: 2024-05-29 Test Time: 12:19:02 Gill Tender: MATHEW MEASUREMENT RESULTS: Intervals: Rate: 84 IA: 202 QRSD: 142 QT: 400 QTc: 472 [place]: P: IA: 202 QRS: 79 T: 48 INTERPRETIVE STATEMENTS: Normal sinus rhythm Right bundle branch block Abnormal ECG Compared to ECG 03/07/2024 12:59:24 First degree AV block no longer present Electronically Signed On 06-01-24 10:50:50 CDT by Naveed Givens
== END 2024-05-29 16:57 | disposition home or self-care (01) ==
LOC: ER 11:47
DX: E86.0 Dehydration (principal); F10.129 Alcohol abuse with intoxication, unspecified; F17.210 Nicotine dependence, cigarettes, uncomplicated; Z86.73 Personal history of transient ischemic attack (TIA), and cerebral infarction without residual deficits
CPT/HCPCS: 93005; 87040 ×2; 85025; 80048; 36415; 83735; 85610; 82947; 80076; 83605 ×2; 85730; 84484; 80307; 70450; 71045; 96360; 99285; 82077; J7030

== ENCOUNTER 2024-05-30 13:11 | Emergency (ER) | payer OTHER ==
[2024-05-30] MEDS ORDERED: THIAMINE 200 MG/2 ML INJ ONE (13:55)
[2024-05-30] MEDS ORDERED: NA CHLORIDE 0.9% 100 ML ONE (13:56)
[2024-05-30] MEDS ORDERED: ZIPRASIDONE MESYLA 20 MG/VIAL IM ONE (14:26)
[2024-05-30] MEDS ORDERED: WATER FOR INJ,STERILE 10 ML ONE (14:27)
[2024-05-30 15:55] LABS: Absolute Basophils 0.1 K/uL (0-0.5); Absolute Eosinophils 0.1 K/uL (0-0.5); Absolute Lymphocytes (CBC) 1.2 K/uL (0.7-4.9); Absolute Monocytes 0.6 K/uL (0.1-1.3); Absolute Neutrophil 3.5 K/uL (1.8-8.0); Basophils % 1.1 % (0-1.3); Eosinophils % 2.3 % (0-4.4); Hematocrit 44.2 % (39.6-49.0); Lymphocytes % 21.2 % (15.3-44.8); MCHC 33.9 g/dL (32.0-36.0); MCV 91.5 fL (80-100); MPV 8.4 fL (7.6-11.3); Monocytes % 11.4 % (3.3-12.3); Platelets 120 thou/uL (152-406); RBC Red Blood Cell Count 4.83 M/uL (4.33-5.43); Red Cell Distribution Width 16.6 % (12.1-15.2)
[2024-05-30 16:14] LABS: Albumin 3.3 g/dL (3.4-5.0); Albumin/Globulin Ratio 0.9 (1.1-1.8); Anion Gap 6.9 mEq/L (5.0-15.0); Bilirubin Total 0.5 mg/dL (0.2-1.0); Globulin 3.6 g/dL (2.3-3.5); Potassium 3.9 mEq/L (3.5-5.1); Protein, Total 6.9 g/dL (6.4-8.2)
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
--- NOTE | 2024-05-30 18:56 | EDPHYS ---
Physician Documentation [facility] Name: Mega Farnsworth Age: 73 yrs Sex: Male : 1950 Arrival Date: 05/30/2024 Time: 13:11 Bed 13 Private MD: ED Physician Owen Souza HPI: 05/30 20:27 This 73 yrs old Male presents to ER via EMS with complaints of SOCIAL ISSUE. rt 20:27 Patient was seen in the ED yesterday for wandering around in his apartment complex, was rt found to have alcohol tox occasional lactic acidosis, subsequently discharged. Patient was again found today wandering on his apartment complex, brought in on [place] by police, APS report was called. Patient denies any symptoms at this time. Symptoms are moderate severity, no other aggravating limiting factors.. Historical: - Allergies: 13:13 NKDA; bp - PMHx: 13:13 Ulcers; Liver disease (Ulcers); Hypertension; Drug and Alcohol abuse; CVA; COPD; bp Anxiety; - Immunization history:: Adult Immunizations unknown. - Infectious Disease History:: Denies. - Social history:: Smoking status: unknown. - Family history:: not pertinent. ROS: 20:27 Constitutional: Negative for fever, chills, and weight loss, Cardiovascular: Negative rt for chest pain, palpitations, and edema, Respiratory: Negative for shortness of breath, cough, wheezing, and pleuritic chest pain, Abdomen/GI: Negative for abdominal pain, nausea, vomiting, diarrhea, and constipation, MS/Extremity: Negative for injury and deformity, Skin: Negative for injury, rash, and discoloration, 20:27 Neuro: Positive for Confusion, negative for loss of consciousness, Exam: 20:27 Constitutional: This is a well developed, well nourished patient who is awake, alert, rt and in no acute distress. Head/Face: Normocephalic, atraumatic. Chest/axilla: Normal chest wall appearance and motion. Nontender with no deformity. No lesions are appreciated. Cardiovascular: Regular rate and rhythm with a normal S1 and S2. No gallops, murmurs, or rubs. Normal PMI, no JVD. No pulse deficits. Respiratory: Lungs have equal breath sounds bilaterally, clear to auscultation and percussion. No rales, rhonchi or wheezes noted. No increased work of breathing, no retractions or nasal flaring. Abdomen/GI: Soft, non-tender, with normal bowel sounds. No distension or tympany. No guarding or rebound. No evidence of tenderness throughout. 20:27 Neuro: Confused, somewhat slurred speech, no cranial nerve deficits, moves all 4 extremities equally, Vital Signs: 13:12 BP 130 / 80; Pulse 78; Resp 16; Temp 98; Pulse Ox 98% ; bp 16:31 BP 155 / 83; Pulse 69; Resp 16; Pulse Ox 97% ; bp 19:03 BP 166 / 99; Pulse 74; Resp 16; Pulse Ox 98% ; bp MDM: 13:45 Medical Screening Exam initiated rt 20:27 Differential Diagnosis Alcohol tox occasion, lactic acidosis, electrolyte imbalance, rt dementia. Data reviewed: vital signs, nurses notes, lab test result(s), EKG. Consideration of Admission/Observation Escalation of care including admission/observation considered. Labs are benign, symptoms are improved with treatment in the ED, at this time, he has no indications for medical admission, his labs have essentially normalized. He was given a dose of thiamine here. I did offer to the caregiver admission for placement, states that he is not desirous of this, wishes to be discharged. At this point, he does not seem to be an imminent threat to himself or others. Do not believe that psychiatric evaluation is indicated at this time.. I considered the following discharge prescriptions or medication management in the emergency department Medications were administered in the Emergency Department. See MAR. Test considered but Not performed: CT: CT scan yesterday was unremarkable, no signs of trauma, do not believe that repeat scan is indicated.. Care significantly affected by the following chronic conditions: CLD. Care significantly affected by the following Social Determinants of Health: Misuse of alcohol and/or drugs. Counseling: I had a detailed discussion with the patient and/or guardian regarding the historical points, exam findings, and any diagnostic results supporting the discharge/admit diagnosis, lab results, the need for outpatient follow up, to return to the emergency department if symptoms worsen or persist or if there are any questions or concerns that arise at home. Response to treatment: the patient's symptoms have markedly improved after treatment. 05/30 13:49 Order name: CBC with Diff; Complete Time: 16:19 rt 05/30 13:49 Order name: CMP; Complete Time: 16:19 rt 05/30 13:49 Order name: ETOH Level; Complete Time: 16:19 rt 05/30 13:49 Order name: Lactate w/ 2H reflex if indic.; Complete Time: 16:19 rt 05/30 13:49 Order name: AMMONIA; Complete Time: 16:19 rt 05/30 13:49 Order name: CPK; Complete Time: 16:19 rt Administered Medications: 14:36 Drug: Geodon IM 40 mg IM once Route: IM; Site: right vastus lateralis; hb 16:44 Follow up: Response: No adverse reaction bp 15:40 Drug: Thiamine IV 100 mg IV at calculated rate once Route: IV; Rate: calculated rate; bp Site: left hand; 19:04 Follow up: IV Status: Completed infusion bp Disposition Summary: 05/30/24 18:56 Discharge Ordered Notes: Location: Home rt Problem: new rt Symptoms: have improved rt Condition: Stable rt Diagnosis - Confusion rt Followup: rt - With: Private Physician - When: 2 - 3 days - Reason: Discharge Instructions: - Discharge Summary Sheet rt - Confusion rt Forms: - Medication Reconciliation Form rt - Antibiotic Education rt - Prescription Opioid Use rt - Patient Portal Instructions rt - Leadership Thank You Letter rt Signatures: Dispatcher [employer] Julieta Gore RN RN Carlo Guillen RN RN bp Owen Souza MD MD rt Corrections: (The following items were deleted from the chart) 13:49 13:49 CBC+H.LAB.BRZ ordered. EDMS EDMS 13:49 13:49 COMPREHENSIVE METABOLIC PANEL+C.LAB.BRZ ordered. EDMS EDMS 13:49 13:49 ETHANOL+C.LAB.BRZ ordered. EDMS EDMS 13:49 13:49 LACTATE+C.LAB.BRZ ordered. EDMS EDMS 13:49 13:49 AMMONIA+C.LAB.BRZ ordered. EDMS EDMS
[2024-05-30 19:33] VITALS: TEMP 98
[2024-05-30 19:37] VITALS: BP 166/99; O2SAT 98
== END 2024-05-30 19:05 | disposition home or self-care (01) ==
LOC: ER 13:11
DX: R41.0 Disorientation, unspecified (principal); I10 Essential (primary) hypertension; J44.9 Chronic obstructive pulmonary disease, unspecified; Z86.73 Personal history of transient ischemic attack (TIA), and cerebral infarction without residual deficits
CPT/HCPCS: 96365; 85025; 36415; 82140; 82550; 83605; 80053; 96372; 99284; 96366; 82077; J3411; J3486